=== PATIENT | female | born 1960 | race Caucasian/White ===

== ENCOUNTER 2018-08-11 17:18 | Inpatient (IN) | payer MEDICARE, OTHER ==
[~2018-08-11] VITALS: Ht 160 cm; Wt 98.6 kg
--- NOTE | 2018-08-11 17:44 | PHYS DOC ---
Adult General Chief Complaint Chief Complaint: PSYCH EVALUATION HPI HPI 57-year-old female presents for medical clearance for behavioral health admission. The patient was reported to be "yelling" at staff and scratching herself and she doesn't get her way. She is special needs, nonverbal and non- verbal. She does make audible sounds. She does not indicate any distress or pain when asked. Review of Systems Review of Systems SEVERELY LIMITED DUE TO BEING NON VERBAL Physical Exam Physical Exam Constitutional: Well developed, obese, well nourished, no acute distress, non- toxic appearance. [] HENT: Normocephalic, atraumatic, bilateral external ears normal, oropharynx moist, no oral exudates, nose normal. [] Eyes: PERRLA, EOMI, conjunctiva normal, no discharge. [] Neck: Normal range of motion, no tenderness, supple, no stridor. [] Cardiovascular:Heart rate regular rhythm, no murmur [] Lungs & Thorax: Bilateral breath sounds clear to auscultation [] Abdomen: Bowel sounds normal, soft, no tenderness, no masses, no pulsatile masses. [] Skin: Warm, dry, no erythema, no rash. [] Back: No tenderness. [] Extremities: Bilateral hand contractures[] Neurologic: Unable to speak, no focal deficits noted. [] Psychologic: Affect normal, mood normal. [] EKG EKG Sinus rhythm, rate 94, normal axis, no ST elevations or depressions. PVCs.[] Radiology/Procedures Radiology/Procedures [] Course & Med Decision Making Course & Med Decision Making Pertinent Labs and Imaging studies reviewed. (See chart for details) Patient's EKG is unremarkable. Her labs and urinalysis are pending. I'm signing the patient out to Dr. Rush at 1800. [] Dragon Disclaimer Dragon Disclaimer This electronic medical record was generated, in whole or in part, using a voice recognition dictation system. MARIA DOLORES CONNOR DO Aug 11, 2018 17:44
--- NOTE | 2018-08-11 18:10 | EKG ---
[address] [address] Test Date: 2018-08-11 Test Time: 17:52:23 Pat Name: SLADE FOWLER Department: Room: Gender: F Storage Administrator: OPAL : [id number] Requested By: MARIA DOLORES CONNOR Order Number: [id number] Reading MD: Ray Ramirez Measurements Intervals Wilson Rate: 94 P: 39 ID: [id number] QRS: 3 QRSD: 144 T: 103 QT: 396 QTc: 501 Interpretive Statements SINUS RHYTHM VENTRICULAR PREMATURE COMPLEX(ES) NON SPECIFIC INTRAVENTRICULAR BLOCK QRS(T) CONTOUR ABNORMALITY CONSIDER ANTEROLATERAL MYOCARDIAL DAMAGE ABNORMAL ECG Electronically Signed On 08-24-2018 7:39:11 [employer] SEATING PRESS OPERATOR by Ray Ramirez
[2018-08-11 18:24] LABS: ALBUMIN 2.9 g/dL (3.4-5.0); ALBUMIN/GLOBULIN RATIO 0.7 (1.0-1.7); CALCIUM 9.3 mg/dL (8.5-10.1); CREATININE 0.9 mg/dL (0.6-1.0); GFR 64.1; MAGNESIUM 1.5 mg/dL (1.8-2.4); POTASSIUM 4.2 mmol/L (3.5-5.1); TOTAL BILIRUBIN 0.4 mg/dL (0.2-1.0)
[2018-08-11 18:37] LABS: BASO % 1 % (0-3); EOS # 0.2 x10^3/uL (0.0-0.7); EOS % 3 % (0-3); HEMATOCRIT 39.1 % (36.0-47.0); HEMOGLOBIN 13.3 g/dL (12.0-15.5); LYMPH # 2.4 x10^3/uL (1.0-4.8); LYMPH % 28 % (24-48); MEAN CORPUSCULAR HEMOGLOBIN 32 pg (25-35); MEAN CORPUSCULAR HGB CONC 34 g/dL (31-37); MEAN CORPUSCULAR VOLUME 95 fL (79-100); MONO # 0.4 x10^3/uL (0.0-1.1); MONO % 5 % (0-9); NEUT # 5.3 x10^3uL (1.8-7.7); NEUT % 63 % (31-73); PLATELET COUNT 284 x10^3/uL (140-400); RED CELL DISTRIBUTION WIDTH 18.6 % (11.5-14.5); WHITE BLOOD COUNT 8.4 x10^3/uL (4.0-11.0)
[2018-08-11 19:09] LABS: BACTERIA,URINE 0 /HPF (0-FEW); BILIRUBIN,URINE NEG (NEG); CLARITY,URINE CLEAR; COLOR,URINE STRAW; GLUCOSE,URINE NEG (NEG); NITRITE,URINE NEG (NEG); SQUAMOUS EPITHELIAL CELL,UR MOD /LPF; UROBILINOGEN,URINE 0.2 mg/dL (0.2 mg/dL)
[2018-08-11 19:10] LABS: HYALINE CASTS, URINE FEW /HPF
[2018-08-11] MEDS ORDERED: MAG HYDROX/AL HYDROX/SIMETH 30 ML ORAL.SUSP PO PRN (21:00)
[2018-08-11] MEDS ORDERED: METHYL SALICYLATE/MENTHOL TOPICAL OINTMENT 29GM TUBE. TP PRN (21:00)
[2018-08-11] MEDS ORDERED: MAGNESIUM HYDROXIDE 2,400 MG/30 ML ORAL.SUSP. PO PRN (21:00)
[2018-08-11 21:04] VITALS: BP 98/64
[2018-08-11] MEDS ORDERED: MULT1TAB52 PO (22:10)
[2018-08-11] MEDS ORDERED: TRAZ-86 PO (22:10)
[2018-08-11] MEDS ORDERED: ALLO100T PO (22:10)
[2018-08-11] MEDS ORDERED: LISI10TA2 PO (22:10)
[2018-08-11] MEDS ORDERED: LEVO100T5 PO (22:10)
[2018-08-11] MEDS ORDERED: CHOL10003 PO (22:10)
[2018-08-11] MEDS ORDERED: INSU100V31 SQ (22:10)
[2018-08-11] MEDS ORDERED: FOLI1TAB16 PO (22:10)
[2018-08-11] MEDS ORDERED: METH2.5T PO (22:10)
[2018-08-11] MEDS ORDERED: INSU100V13 SQ (22:10)
[2018-08-11] MEDS ORDERED: FURO-68 PO (22:10)
[2018-08-11] MEDS ORDERED: METF10007 PO (22:11)
[2018-08-11] MEDS ORDERED: DICL100G18 TP (22:11)
[2018-08-11] MEDS ORDERED: HYDR-2155 PO (22:11)
[2018-08-11] MEDS ORDERED: DIVA125C2 PO (22:11)
[2018-08-11] MEDS ORDERED: DULO60CA6 PO (22:11)
[2018-08-11] MEDS ORDERED: NYST15PO9 TP (22:11)
[2018-08-11] MEDS ORDERED: MAGN2400 PO (22:11)
[2018-08-11] MEDS ORDERED: ALPR0.5T PO (22:11)
[2018-08-11] MEDS ORDERED: CARV12.5 PO (22:11)
[2018-08-11] MEDS ORDERED: RISP2TAB33 PO (22:11)
[2018-08-11] MEDS ORDERED: GUAI600T47 PO (22:11)
[2018-08-11] MEDS ORDERED: LOPE2TAB27 PO (22:11)
[2018-08-11] MEDS ORDERED: ASCO500T2 PO (22:11)
[2018-08-11] MEDS ORDERED: NITR0.4T SL (22:11)
[2018-08-11] MEDS ORDERED: CALC200T3 PO (22:11)
[2018-08-11] MEDS ORDERED: NITROGLYCERIN SUBLINGUAL 0.4 MG BOTTLE OF 25. SL PRN (22:15)
[2018-08-11] MEDS ORDERED: CALCIUM CARBONATE 500 MG TAB.CHEW PO PRN (22:15)
[2018-08-11] MEDS ORDERED: NON FORMULARY ITEM (Magnesium Hydroxide (Milk Of Magnesia) 2,400 MG) PO PRN (22:15)
[2018-08-11 22:29] LABS: VAL ACID 37 mcg/mL (50-100)
[2018-08-11] MEDS: traZODone 100 MG TABLET. PO SCH (22:38)
[2018-08-11] MEDS ORDERED: LOPERAMIDE 2 MG CAPSULE PO PRN (22:45)
--- NOTE | 2018-08-11 23:11 | PDOC ---
Exam Note: Johnnie Note: Please also refer to the separate dictated note~for this date of service dictated separately. Discussed the patient with Nursing staff reviewed the chart.~Reviewed interim history and current functioning. Reviewed vital signs,~ Labs/ Radiology~and current medications noted below. Continue current treatment with the changes noted in the dictated addendum note Assessment: Vital Signs: Vital Signs Date Time Temp Pulse Resp B/P (MAP) Pulse Ox O2 Delivery O2 Flow Rate FiO2 08/11/18 21:04 98.1 87 18 98/64 (75) 98 Room Air Labs: Laboratory Tests Test 08/11/18 17:25 08/11/18 17:52 08/11/18 18:05 08/11/18 20:41 Valproic Acid Level 37 mcg/mL (50-100) L Valproic Acid Last Dose Date 08/11/18 Valproic Acid Last Dose Time 1700 Sodium Level 139 mmol/L (136-145) Potassium Level 4.2 mmol/L (3.5-5.1) Chloride Level 101 mmol/L (98-107) Carbon Dioxide Level 28 mmol/L (21-32) Anion Gap 10 (6-14) Blood Urea Nitrogen 9 mg/dL (7-20) Creatinine 0.9 mg/dL (0.6-1.0) Estimated GFR (Cockcroft-Gault) 64.1 BUN/Creatinine Ratio 10 (6-20) Glucose Level 120 mg/dL (70-99) H Calcium Level 9.3 mg/dL (8.5-10.1) Magnesium Level 1.5 mg/dL (1.8-2.4) L Total Bilirubin 0.4 mg/dL (0.2-1.0) Aspartate Amino Transferase (AST) 28 U/L (15-37) Alanine Aminotransferase (ALT) 35 U/L (14-59) Alkaline Phosphatase 90 U/L (46-116) Total Protein 7.0 g/dL (6.4-8.2) Albumin 2.9 g/dL (3.4-5.0) L Albumin/Globulin Ratio 0.7 (1.0-1.7) L White Blood Count 8.4 x10^3/uL (4.0-11.0) Red Blood Count 4.10 x10^6/uL (3.50-5.40) Hemoglobin 13.3 g/dL (12.0-15.5) Hematocrit 39.1 % (36.0-47.0) Mean Corpuscular Volume 95 fL (79-100) Mean Corpuscular Hemoglobin 32 pg (25-35) Mean Corpuscular Hemoglobin Concent 34 g/dL (31-37) Red Cell Distribution Width 18.6 % (11.5-14.5) H Platelet Count 284 x10^3/uL (140-400) Neutrophils (%) (Auto) 63 % (31-73) Lymphocytes (%) (Auto) 28 % (24-48) Monocytes (%) (Auto) 5 % (0-9) Eosinophils (%) (Auto) 3 % (0-3) Basophils (%) (Auto) 1 % (0-3) Neutrophils # (Auto) 5.3 x10^3uL (1.8-7.7) Lymphocytes # (Auto) 2.4 x10^3/uL (1.0-4.8) Monocytes # (Auto) 0.4 x10^3/uL (0.0-1.1) Eosinophils # (Auto) 0.2 x10^3/uL (0.0-0.7) Basophils # (Auto) 0.0 x10^3/uL (0.0-0.2) Urine Collection Type U cath Urine Color Straw Urine Clarity Clear Urine pH 5.5 Urine Specific [place] <=1.005 Urine Protein Neg (NEG-TRACE) Urine Glucose (UA) Neg mg/dL (NEG) Urine Ketones (Stick) Neg mg/dL (NEG) Urine Blood Trace (NEG) Urine Nitrite Neg (NEG) Urine Bilirubin Neg (NEG) Urine Urobilinogen Dipstick 0.2 mg/dL (0.2 mg/dL) Urine Leukocyte Esterase Neg (NEG) Urine RBC 11-20 /HPF (0-2) Urine WBC 1-4 /HPF (0-4) Urine Squamous Epithelial Cells Mod /LPF Urine Bacteria 0 /HPF (0-FEW) Urine Hyaline Casts Few /HPF Urine Mucus Slight /LPF Glucose (Fingerstick) 143 mg/dL (70-99) H Current Medications: Meds: Current Medications Acetaminophen (Tylenol) 650 mg PRN Q6HRS PRN PO PAIN / TEMP; Start 08/11/18 at 21:00 Multi-Ingredient Ointment (Analgesic [place]) 1 yaima PRN QID PRN TP MUSCLE PAIN; Start 08/11/18 at 21:00 Al Hydroxide/Mg Hydroxide (Mylanta Plus Xs) 15 ml PRN AFTMEALHC PRN PO DYSPEPSIA; Start 08/11/18 at 21:00 Magnesium Hydroxide (Milk Of Magnesia) 2,400 mg PRN QHS PRN PO CONSTIPATION; Start 08/11/18 at 21:00 Alprazolam (Xanax) 0.5 mg PRN Q6HRS PRN PO ANXIETY / AGITATION; Start at 22:30 Divalproex Sodium (Depakote Sprinkles) 250 mg BIDWMEALS PO ; Start 08/12/18 at 08:00 Duloxetine HCl (Cymbalta) 60 mg BIDWMEALS PO ; Start 08/12/18 at 08:00 Risperidone (RisperDAL) 2 mg BIDWMEALS PO ; Start 08/12/18 at 08:00 Trazodone HCl (Desyrel) 100 mg HS PO Last administered on 08/11/18at 22:38; Start 08/11/18 at 22:30 Ascorbic Acid (Vitamin C) 500 mg BIDWMEALS PO ; Start 08/12/18 at 08:00 Calcium Carbonate/ Glycine (Tums) 500 mg PRN Q6HRS PRN PO INDIGESTION; Start 08/11/18 at 22:15 Vitamin D (Vitamin D3) 2,000 unit DAILY PO ; Start 08/12/18 at 09:00 Diclofenac Sodium (Voltaren) 1 yaima QID TP ; Start 08/12/18 at 09:00 Guaifenesin (Mucinex Er) 600 mg BIDWMEALS PO ; Start 08/12/18 at 08:00 Acetaminophen/ Hydrocodone Bitart (Lortab 5/325) 1 tab PRN Q6HRS PRN PO PAIN; Start 08/11/18 at 22:15 Levothyroxine Sodium (Synthroid) 100 mcg DAILY06 PO ; Start 08/12/18 at 06:00 Lisinopril (Prinivil) 10 mg DAILY PO ; Start 08/12/18 at 09:00 Nitroglycerin (Nitrostat) 0.4 mg PRN Q5MIN PRN SL CHEST PAIN; Start 08/11/18 at 22:15 Nystatin (Nystop) 1 yaima BID TP ; Start 08/12/18 at 09:00 Allopurinol (Zyloprim) 100 mg DAILY PO ; Start 08/12/18 at 09:00 Carvedilol (Coreg) 12.5 mg BIDWMEALS PO ; Start 08/12/18 at 08:00 Folic Acid (Folic Acid) 1 mg DAILY PO ; Start 08/12/18 at 09:00 Furosemide (Lasix) 40 mg DAILY PO ; Start 08/12/18 at 09:00 Insulin Human Lispro (HumaLOG) 5 units TIDWMEALS SQ ; Start 08/12/18 at 08:00 Insulin Glargine (Lantus) 10 units QHS SQ ; Start 08/11/18 at 23:00 Loperamide HCl (Imodium) 2 mg PRN Q6HRS PRN PO DIARRHEA; Start 08/11/18 at 22: 45 Non-Formulary Medication (Magnesium Hydroxide (Milk Of Magnesia)) 2,400 mg PRN DAILY PRN PO CONSTIPATION; Start 08/11/18 at 22:15; Status UNV Metformin HCl (Glucophage) 1,000 mg BIDWMEALS PO ; Start 08/12/18 at 08:00 Methotrexate (Rheumatrex) 15 mg WEEKLY PO ; Start 08/18/18 at 09:00 Multivitamins/ Calcium (Thera-M Plus) 1 tab DAILY PO ; Start 08/12/18 at 09:00 Active Scripts Active Reported Xanax (Alprazolam) 0.5 Mg Tablet 0.5 Mg PO PRN Q6HRS PRN Hydrocodone-Apap 5-325 (Hydrocodone Bit/Acetaminophen) 1 Each Tablet 1 Tab PO PRN Q6HRS PRN Voltaren (Diclofenac Sodium) 100 Gm Gel..gram. 4 Gm TP QID Nystatin 15 Gm Powder 1 Yaima TP BID Tums (Calcium Carbonate) 200 Mg Tab.chew 2 Tab PO PRN Q6HRS PRN Nitrostat (Nitroglycerin) 0.4 Mg Tab.subl 0.4 Mg SL PRN Q5MIN PRN Milk Of Magnesia (Magnesium Hydroxide) 2,400 Mg/10 Ml Oral.susp 2,400 Mg PO PRN DAILY PRN Loperamide (Loperamide Hcl) 2 Mg Tablet 2 Mg PO PRN Q6HRS PRN Vitamin C (Ascorbic Acid) 500 Mg Tablet 500 Mg PO BIDWMEALS Risperdal (Risperidone) 2 Mg Tablet 2 Mg PO BIDWMEALS Mucinex (Guaifenesin) 600 Mg Tablet.er 600 Mg PO BIDWMEALS Metformin Hcl 1,000 Mg Tablet 1,000 Mg PO BIDWMEALS Cymbalta (Duloxetine Hcl) 60 Mg Capsule.dr 60 Mg PO BIDWMEALS Depakote Sprinkle (Divalproex Sodium) 125 Mg Cap.sprink 250 Mg PO BIDWMEALS Coreg (Carvedilol) 12.5 Mg Tablet 12.5 Mg PO BIDWMEALS Vitamin D3 (Cholecalciferol (Vitamin D3)) 1,000 Unit Tablet 2,000 Unit PO DAILY Trazodone Hcl 100 Mg Tablet 100 Mg PO HS Multivitamins (Multivitamin) 1 Each Tablet 1 Tab PO DAILY Methotrexate (Methotrexate Sodium) 2.5 Mg Tablet 15 Mg PO WEEKLY Lisinopril 10 Mg Tablet 10 Mg PO DAILY Levothyroxine Sodium 100 Mcg Tablet 100 Mcg PO DAILYAC Lasix (Furosemide) 40 Mg Tablet 40 Mg PO DAILY Folic Acid 1 Mg Tablet 1 Mg PO DAILY Allopurinol 100 Mg Tablet 100 Mg PO DAILY Novolog (Insulin Aspart) 100 Unit/1 Ml Vial 5 Unit SQ TIDWMEALS Levemir (Insulin Detemir) 100 Unit/1 Ml Vial 10 Unit SQ HS I have reviewed the current psychotropics carefully including drug interactions. Risk benefit ratio favors no change other than as noted in my dictated progress note. KAITLIN DREW MD Aug 11, 2018 23:11
[2018-08-11] MEDS: INSULIN GLARGINE 300 UNITS/3 ML INSULN.PEN. SQ SCH (23:30)
[2018-08-12] MEDS: LEVOTHYROXINE 100 MCG TABLET PO SCH (05:54)
[2018-08-12 06:37] VITALS: BP 94/65
[2018-08-12] MEDS: CARVEDILOL 12.5 MG TABLET PO SCH ×2 (08:00→18:02)
[2018-08-12] MEDS: INSULIN LISPRO 300 UNITS/3 ML INSULN.PEN. SQ SCH ×3 (08:14→17:00)
[2018-08-12] MEDS ORDERED: DEXTROSE ORAL GEL 15 GM TUBE. PO PRN (08:15)
[2018-08-12] MEDS: NYSTATIN TOPICAL POWDER 15GM BOTTLE. TP SCH ×2 (08:17→20:20)
[2018-08-12] MEDS: FUROSEMIDE 40 MG TABLET PO SCH (08:17)
[2018-08-12] MEDS: DULoxetine HCL 60 MG CAPSULE.DR PO SCH ×2 (08:17→18:03)
[2018-08-12] MEDS: MULTIVITAMIN with MINERAL TABLET. PO SCH (08:18)
[2018-08-12] MEDS: risperiDONE 2 MG TABLET. PO SCH ×2 (08:18→18:02)
[2018-08-12] MEDS: ALLOPURINOL 100 MG TABLET. PO SCH (08:18)
[2018-08-12] MEDS: metFORMIN 500 MG TABLET PO SCH ×2 (08:18→17:00)
[2018-08-12] MEDS: FOLIC ACID 1 MG TABLET PO SCH (08:18)
[2018-08-12] MEDS: DIVALPROEX 125 MG CAP.SPRINK PO SCH ×2 (08:18→18:03)
[2018-08-12] MEDS: ASCORBIC ACID 500 MG TABLET PO SCH ×2 (08:18→18:03)
[2018-08-12] MEDS: CHOLECALCIFEROL (VITAMIN D3) 1,000 UNIT TABLET PO SCH (08:19)
[2018-08-12] MEDS: LISINOPRIL 10 MG TABLET PO SCH (08:19)
[2018-08-12] MEDS: DICLOFENAC SODIUM 1% TOPICAL GEL 100GM TUBE. TP SCH ×4 (08:20→20:20)
[2018-08-12 13:15] LABS: THYROID STIM HORMONE (TSH) 2.748 uIU/mL (0.358-3.740)
[2018-08-12 15:27] VITALS: BP_SYST 109; BP_SYST 117; BP_DIAS 72; BP_DIAS 78
[2018-08-12 18:10] LABS: THYROXINE 11.6 ug/dL (4.5-12.0)
[2018-08-12 20:10] LABS: HEMOGLOBIN A1C 5.4 % (4.8-5.6)
[2018-08-12] MEDS: traZODone 100 MG TABLET. PO SCH (20:20)
[2018-08-12] MEDS: INSULIN GLARGINE 300 UNITS/3 ML INSULN.PEN. SQ SCH (20:21)
--- NOTE | 2018-08-12 22:50 | PDOC ---
Exam Note: Johnnie Note: Please also refer to the separate dictated note~for this date of service dictated separately.~Patient seen individually. Discussed the patient with Nursing staff reviewed the chart.~Reviewed interim history and current functioning. Reviewed vital signs,~Labs/ Radiology~and current medications noted below. Continue current treatment with the changes noted in the dictated addendum note Assessment: Vital Signs: Vital Signs Date Time Temp Pulse Resp B/P (MAP) Pulse Ox O2 Delivery O2 Flow Rate FiO2 08/12/18 18:02 68 109/72 08/12/18 15:27 97.6 20 95 08/12/18 06:37 Room Air I&O Intake and Output 08/12/18 07:01 Intake Total 120 ml Balance 120 ml Intake Oral 120 ml Labs: Laboratory Tests Test 08/12/18 07:12 08/12/18 11:50 08/12/18 16:48 08/12/18 19:54 Glucose (Fingerstick) 123 mg/dL (70-99) H 134 mg/dL (70-99) H 139 mg/dL (70-99) H 131 mg/dL (70-99) H Current Medications: Meds: Current Medications Acetaminophen (Tylenol) 650 mg PRN Q6HRS PRN PO PAIN / TEMP; Start 08/11/18 at 21:00 Multi-Ingredient Ointment (Analgesic [place]) 1 yaima PRN QID PRN TP MUSCLE PAIN; Start 08/11/18 at 21:00 Al Hydroxide/Mg Hydroxide (Mylanta Plus Xs) 15 ml PRN AFTMEALHC PRN PO DYSPEPSIA; Start 08/11/18 at 21:00 Magnesium Hydroxide (Milk Of Magnesia) 2,400 mg PRN QHS PRN PO CONSTIPATION; Start 08/11/18 at 21:00 Alprazolam (Xanax) 0.5 mg PRN Q6HRS PRN PO ANXIETY / AGITATION; Start at 22:30 Divalproex Sodium (Depakote Sprinkles) 250 mg BIDWMEALS PO Last administered on 08/12/18at 18:03; Start 08/12/18 at 08:00 Duloxetine HCl (Cymbalta) 60 mg BIDWMEALS PO Last administered on 08/12/18at 18 :03; Start 08/12/18 at 08:00 Risperidone (RisperDAL) 2 mg BIDWMEALS PO Last administered on 08/12/18at 18:02 ; Start 08/12/18 at 08:00 Trazodone HCl (Desyrel) 100 mg HS PO Last administered on 08/12/18at 20:20; Start 08/11/18 at 22:30 Ascorbic Acid (Vitamin C) 500 mg BIDWMEALS PO Last administered on 08/12/18at 18:03; Start 08/12/18 at 08:00 Calcium Carbonate/ Glycine (Tums) 500 mg PRN Q6HRS PRN PO INDIGESTION; Start 08/11/18 at 22:15 Vitamin D (Vitamin D3) 2,000 unit DAILY PO Last administered on 08/12/18at 08: 19; Start 08/12/18 at 09:00 Diclofenac Sodium (Voltaren) 1 yaima QID TP Last administered on 08/12/18at 20:20 ; Start 08/12/18 at 09:00 Guaifenesin (Mucinex Er) 600 mg BIDWMEALS PO Last administered on 08/12/18at 18 :03; Start 08/12/18 at 08:00 Acetaminophen/ Hydrocodone Bitart (Lortab 5/325) 1 tab PRN Q6HRS PRN PO PAIN; Start 08/11/18 at 22:15 Levothyroxine Sodium (Synthroid) 100 mcg DAILY06 PO Last administered on at 05:54; Start 08/12/18 at 06:00 Lisinopril (Prinivil) 10 mg DAILY PO ; Start 08/12/18 at 09:00 Nitroglycerin (Nitrostat) 0.4 mg PRN Q5MIN PRN SL CHEST PAIN; Start 08/11/18 at 22:15 Nystatin (Nystop) 1 yaima BID TP Last administered on 08/12/18at 20:20; Start at 09:00 Allopurinol (Zyloprim) 100 mg DAILY PO Last administered on 08/12/18at 08:18; Start 08/12/18 at 09:00 Carvedilol (Coreg) 12.5 mg BIDWMEALS PO Last administered on 08/12/18at 18:02; Start 08/12/18 at 08:00 Folic Acid (Folic Acid) 1 mg DAILY PO Last administered on 08/12/18at 08:18; Start 08/12/18 at 09:00 Furosemide (Lasix) 40 mg DAILY PO Last administered on 08/12/18at 08:17; Start 08/12/18 at 09:00 Insulin Human Lispro (HumaLOG) 5 units TIDWMEALS SQ Last administered on at 17:00; Start 08/12/18 at 08:00 Insulin Glargine (Lantus) 10 units QHS SQ Last administered on 08/12/18at 20:21 ; Start 08/11/18 at 23:00 Loperamide HCl (Imodium) 2 mg PRN Q6HRS PRN PO DIARRHEA; Start 08/11/18 at 22: 45 Non-Formulary Medication (Magnesium Hydroxide (Milk Of Magnesia)) 2,400 mg PRN DAILY PRN PO CONSTIPATION; Start 08/11/18 at 22:15; Status UNV Metformin HCl (Glucophage) 1,000 mg BIDWMEALS PO Last administered on at 17:00; Start 08/12/18 at 08:00 Methotrexate (Rheumatrex) 15 mg WEEKLY PO ; Start 08/18/18 at 09:00 Multivitamins/ Calcium (Thera-M Plus) 1 tab DAILY PO Last administered on 08/12at 08:18; Start 08/12/18 at 09:00 Glucose (Insta-Glucose) 15 gm PRN Q15MIN PRN PO LOW BLOOD SUGAR; Start at 08:15 Active Scripts Active Reported Xanax (Alprazolam) 0.5 Mg Tablet 0.5 Mg PO PRN Q6HRS PRN Hydrocodone-Apap 5-325 (Hydrocodone Bit/Acetaminophen) 1 Each Tablet 1 Tab PO PRN Q6HRS PRN Voltaren (Diclofenac Sodium) 100 Gm Gel..gram. 4 Gm TP QID Nystatin 15 Gm Powder 1 Yaima TP BID Tums (Calcium Carbonate) 200 Mg Tab.chew 2 Tab PO PRN Q6HRS PRN Nitrostat (Nitroglycerin) 0.4 Mg Tab.subl 0.4 Mg SL PRN Q5MIN PRN Milk Of Magnesia (Magnesium Hydroxide) 2,400 Mg/10 Ml Oral.susp 2,400 Mg PO PRN DAILY PRN Loperamide (Loperamide Hcl) 2 Mg Tablet 2 Mg PO PRN Q6HRS PRN Vitamin C (Ascorbic Acid) 500 Mg Tablet 500 Mg PO BIDWMEALS Risperdal (Risperidone) 2 Mg Tablet 2 Mg PO BIDWMEALS Mucinex (Guaifenesin) 600 Mg Tablet.er 600 Mg PO BIDWMEALS Metformin Hcl 1,000 Mg Tablet 1,000 Mg PO BIDWMEALS Cymbalta (Duloxetine Hcl) 60 Mg Capsule.dr 60 Mg PO BIDWMEALS Depakote Sprinkle (Divalproex Sodium) 125 Mg Cap.sprink 250 Mg PO BIDWMEALS Coreg (Carvedilol) 12.5 Mg Tablet 12.5 Mg PO BIDWMEALS Vitamin D3 (Cholecalciferol (Vitamin D3)) 1,000 Unit Tablet 2,000 Unit PO DAILY Trazodone Hcl 100 Mg Tablet 100 Mg PO HS Multivitamins (Multivitamin) 1 Each Tablet 1 Tab PO DAILY Methotrexate (Methotrexate Sodium) 2.5 Mg Tablet 15 Mg PO WEEKLY Lisinopril 10 Mg Tablet 10 Mg PO DAILY Levothyroxine Sodium 100 Mcg Tablet 100 Mcg PO DAILYAC Lasix (Furosemide) 40 Mg Tablet 40 Mg PO DAILY Folic Acid 1 Mg Tablet 1 Mg PO DAILY Allopurinol 100 Mg Tablet 100 Mg PO DAILY Novolog (Insulin Aspart) 100 Unit/1 Ml Vial 5 Unit SQ TIDWMEALS Levemir (Insulin Detemir) 100 Unit/1 Ml Vial 10 Unit SQ HS I have reviewed the current psychotropics carefully including drug interactions. Risk benefit ratio favors no change other than as noted in my dictated progress note. Diagnosis: Problems: (1) Anxiety disorder (2) Major depressive disorder, recurrent episode (3) Impulse control disorder (4) Dementia in Alzheimer's disease with delusions (5) Dementia in Alzheimer's disease with depression (6) Dementia, vascular, with delusions (7) Dementia, vascular, with depression KAITLIN DREW MD Aug 12, 2018 22:50
[2018-08-13] MEDS: LEVOTHYROXINE 100 MCG TABLET PO SCH (05:32)
[2018-08-13 06:38] VITALS: BP 127/88
[2018-08-13] MEDS: MULTIVITAMIN with MINERAL TABLET. PO SCH (07:35)
[2018-08-13] MEDS: FOLIC ACID 1 MG TABLET PO SCH (07:35)
[2018-08-13] MEDS: ALLOPURINOL 100 MG TABLET. PO SCH (07:35)
[2018-08-13] MEDS: FUROSEMIDE 40 MG TABLET PO SCH (07:35)
[2018-08-13] MEDS: DULoxetine HCL 60 MG CAPSULE.DR PO SCH ×2 (07:35→18:08)
[2018-08-13] MEDS: risperiDONE 2 MG TABLET. PO SCH ×2 (07:35→18:09)
[2018-08-13] MEDS: metFORMIN 500 MG TABLET PO SCH ×2 (07:35→18:08)
[2018-08-13] MEDS: CHOLECALCIFEROL (VITAMIN D3) 1,000 UNIT TABLET PO SCH (07:36)
[2018-08-13] MEDS: CARVEDILOL 12.5 MG TABLET PO SCH ×2 (07:36→18:09)
[2018-08-13] MEDS: DIVALPROEX 125 MG CAP.SPRINK PO SCH ×2 (07:36→18:08)
[2018-08-13] MEDS: ASCORBIC ACID 500 MG TABLET PO SCH ×2 (07:37→18:09)
[2018-08-13] MEDS: NYSTATIN TOPICAL POWDER 15GM BOTTLE. TP SCH ×2 (07:37→20:35)
[2018-08-13] MEDS: LISINOPRIL 10 MG TABLET PO SCH (07:37)
[2018-08-13] MEDS: DICLOFENAC SODIUM 1% TOPICAL GEL 100GM TUBE. TP SCH ×4 (07:38→20:37)
[2018-08-13] MEDS: INSULIN LISPRO 300 UNITS/3 ML INSULN.PEN. SQ SCH ×3 (07:46→18:45)
--- NOTE | 2018-08-13 13:10 | CONS ---
DATE OF CONSULTATION: 08/12/2018 REASON FOR CONSULTATION: Medical management. HISTORY OF PRESENT ILLNESS: The patient is a 57-year-old female patient, a resident at [facility], who was admitted on account of being noncompliant with medication, I think it was insulin, yelling at staff, throwing things, scratching her face when she does not get her way, gorging herself or not eating at all, all this in a background of bipolar disorder, mixed with acute exacerbation. She is deaf and difficult to communicate with. PAST MEDICAL HISTORY: She has multiple medical problems including severe sensorineural deafness, rheumatoid arthritis, type 2 diabetes mellitus, gout, hypothyroidism, hyperlipidemia, chronic yeast infections in the abdominal folds and under breasts, hypertension, congestive heart failure. PAST SURGICAL HISTORY: Significant for amputation of her second toe on the right foot. ALLERGIES: SHE IS ALLERGIC TO AMOXICILLIN, CITALOPRAM, CLAVULANIC ACID AND GABAPENTIN. MEDICATIONS: She is currently on following medications: She is on methotrexate sodium 50 mg weekly, nitroglycerin 0.4 mg sublingually every 5 minutes x 3, carvedilol 12.5 mg twice a day with meals, lisinopril 10 mg once a day, diclofenac sodium for Voltaren gel 4 grams 4 times a day, hydrocodone/APAP 5/325 one tablet every 6 hours. She is on Divalproex for Depakote Sprinkles 250 mg twice a day with meals. She is on duloxetine for Cymbalta 60 mg twice a day, trazodone 100 mg at bedtime, risperidone 2 mg twice a day with meals, alprazolam 0.5 mg every 6 hours as needed, furosemide 40 mg daily, Mucinex 600 mg twice a day, calcium carbonate for Tums 2 tablets every 6 hours, loperamide 2 mg every 6 hours, milk of magnesia 30 mL p.o. daily p.r.n. for constipation, metformin 1000 mg twice a day with meals. She is on NovoLog insulin 5 units 3 times a day with meals, Levemir insulin 10 units subcutaneously at bedtime, levothyroxine sodium 100 mcg once a day, nystatin powder apply topically twice a day to skin of abdominal folds and under the breasts. She is on folic acid 1 mg once a day, ascorbic acid 500 mg twice a day with meals, vitamin D 2000 international units once a day. She is on allopurinol 100 mg once a day. FAMILY HISTORY: Unobtainable. SOCIAL HISTORY: She is a resident at [facility] and no further information available. PHYSICAL EXAMINATION: GENERAL: When I examined her, she was resting flat, comfortably, in no apparent distress. She was pale, but no jaundice, cyanosis, or thyromegaly. No jugular venous distension. No lower limb edema. Her heart rate was 68, blood pressure was 109/72. Her temperature was 97.6, respiratory rate 20 and oxygen saturation was 95% on room air. HEAD, EYES, EARS, NOSE AND THROAT: Showed normocephalic, atraumatic. NECK: Supple. HEART: Showed normal first and second heart sounds. No gallop, rub or murmur. CHEST: Clear to auscultation. No crepitation or rhonchi. ABDOMEN: Markedly distended, soft, nontender. NEUROLOGIC: She is extremely hard of hearing. All her other cranial nerves seem to be intact. She has severe deforming rheumatoid arthritis, but she is able to move all her extremities. She is apparently able to walk with a walker. She has pill-rolling tremors consistent with Parkinson's disease. She has also what seems to be tardive dyskinesia with repetitive movement of her lower jaw. 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 She has also wounds on the plantar aspect of the left foot for which she was seen by the wound care team and they changed her dressing this afternoon. LABORATORY DATA: Her lab work this morning showed a white cell count of 8400, hemoglobin 13, hematocrit 39, MCV 95 and platelet count 284,000. Her chemistry showed a serum sodium 139, potassium 4.2, chloride 101, bicarbonate 28, anion gap of 10, BUN 9, creatinine 0.9. Estimated GFR was 64 mL per minute. His glucose 120, calcium was 9.3, magnesium was 1.5. Serum iron was 47, TIBC was 249 and iron saturation was 19%. Her total bilirubin, AST, ALT, alkaline phosphatase were normal. Total protein 7, albumin 2.9. Her TSH and total T4 and total T3 are normal. Her 25-hydroxy vitamin D was 48. Her serum triglycerides 175, cholesterol 173, LDL was 85, VLDL was 35, HDL cholesterol was 53 and the ratio was 3. Her vitamin B12 was 352 pg/mL, which is well within normal range. IMPRESSION: In summary, this is a 57-year-old female patient, who was admitted on account of being compliant with her medications that include insulin, yelling at staff, throwing things, scratching her face when she does not get her way, gorging herself or not eating at all, all this in a background of bipolar disorder, mixed with acute exacerbation. Medically, she has a multitude of medical problems including severe deforming rheumatoid arthritis, severe sensorineural deafness, type 2 diabetes, hypertension, hyperlipidemia, hypothyroidism, congestive heart failure. She has also tremors consistent with Parkinson's disease; however, medically she seemed to be generally stable. Her vital signs are stable. Her lab works are all within acceptable range except mild hypomagnesemia. In fact, her white cell count, hemoglobin, hematocrit and platelet count are all within surprisingly normal range despite severe deforming rheumatoid arthritis. Urinalysis was essentially unremarkable and the urine was negative for nitrite and leukocyte esterase. There were 11-20 rbc's, 1-4 wbc's, and 0 bacteria. The patient seemed to be, all in all, stable medically. We will obviously monitor her blood sugar and adjust her insulin as needed. Thank you, Dr. Schneider for allowing me to participate in the care of this patient. VINAY DE LEON MD DR: SARMAD/satya JOB#: [id number] / [id number]
[2018-08-13 16:21] VITALS: BP 111/53
[2018-08-13] MEDS ORDERED: DIVALPROEX 125 MG CAP.SPRINK PO SCH (20:27)
[2018-08-13] MEDS: traZODone 100 MG TABLET. PO SCH (20:34)
[2018-08-13] MEDS: INSULIN GLARGINE 300 UNITS/3 ML INSULN.PEN. SQ SCH (20:36)
--- NOTE | 2018-08-13 22:11 | PDOC ---
Exam Note: Johnnie Note: Please also refer to the separate dictated note~for this date of service dictated separately.~Patient seen individually. Discussed the patient with Nursing staff reviewed the chart.~Reviewed interim history and current functioning. Reviewed vital signs,~Labs/ Radiology~and current medications noted below. Continue current treatment with the changes noted in the dictated addendum note Assessment: Vital Signs: Vital Signs Date Time Temp Pulse Resp B/P (MAP) Pulse Ox O2 Delivery O2 Flow Rate FiO2 08/13/18 18:09 90 111/53 08/13/18 16:21 97.9 98 08/13/18 06:38 22 08/12/18 06:37 Room Air I&O Intake and Output 08/13/18 07:01 Intake Total 1320 ml Balance 1320 ml Intake Oral 1320 ml Labs: Laboratory Tests Test 08/13/18 07:31 08/13/18 11:55 08/13/18 16:52 08/13/18 19:43 Glucose (Fingerstick) 127 mg/dL (70-99) H 124 mg/dL (70-99) H 106 mg/dL (70-99) H 122 mg/dL (70-99) H Current Medications: Meds: Current Medications Acetaminophen (Tylenol) 650 mg PRN Q6HRS PRN PO PAIN / TEMP; Start 08/11/18 at 21:00 Multi-Ingredient Ointment (Analgesic [place]) 1 yaima PRN QID PRN TP MUSCLE PAIN; Start 08/11/18 at 21:00 Al Hydroxide/Mg Hydroxide (Mylanta Plus Xs) 15 ml PRN AFTMEALHC PRN PO DYSPEPSIA; Start 08/11/18 at 21:00 Magnesium Hydroxide (Milk Of Magnesia) 2,400 mg PRN QHS PRN PO CONSTIPATION; Start 08/11/18 at 21:00 Alprazolam (Xanax) 0.5 mg PRN Q6HRS PRN PO ANXIETY / AGITATION; Start at 22:30 Divalproex Sodium (Depakote Sprinkles) 250 mg BIDWMEALS PO Last administered on 08/13/18at 18:08; Start 08/12/18 at 08:00; Stop 08/13/18 at 20:26; Status DC Duloxetine HCl (Cymbalta) 60 mg BIDWMEALS PO Last administered on 08/13/18at 18 :08; Start 08/12/18 at 08:00; Stop 08/13/18 at 20:26; Status DC Risperidone (RisperDAL) 2 mg BIDWMEALS PO Last administered on 08/13/18at 18:09 ; Start 08/12/18 at 08:00 Trazodone HCl (Desyrel) 100 mg HS PO Last administered on 08/13/18at 20:34; Start 08/11/18 at 22:30 Ascorbic Acid (Vitamin C) 500 mg BIDWMEALS PO Last administered on 08/13/18at 18:09; Start 08/12/18 at 08:00 Calcium Carbonate/ Glycine (Tums) 500 mg PRN Q6HRS PRN PO INDIGESTION; Start 08/11/18 at 22:15 Vitamin D (Vitamin D3) 2,000 unit DAILY PO Last administered on 08/13/18at 07: 36; Start 08/12/18 at 09:00 Diclofenac Sodium (Voltaren) 1 yaima QID TP Last administered on 08/13/18at 20:37 ; Start 08/12/18 at 09:00 Guaifenesin (Mucinex Er) 600 mg BIDWMEALS PO Last administered on 08/13/18at 18 :09; Start 08/12/18 at 08:00 Acetaminophen/ Hydrocodone Bitart (Lortab 5/325) 1 tab PRN Q6HRS PRN PO PAIN; Start 08/11/18 at 22:15 Levothyroxine Sodium (Synthroid) 100 mcg DAILY06 PO Last administered on at 05:32; Start 08/12/18 at 06:00 Lisinopril (Prinivil) 10 mg DAILY PO Last administered on 08/13/18at 07:37; Start 08/12/18 at 09:00 Nitroglycerin (Nitrostat) 0.4 mg PRN Q5MIN PRN SL CHEST PAIN; Start 08/11/18 at 22:15 Nystatin (Nystop) 1 yaima BID TP Last administered on 08/13/18at 20:35; Start at 09:00 Allopurinol (Zyloprim) 100 mg DAILY PO Last administered on 08/13/18at 07:35; Start 08/12/18 at 09:00 Carvedilol (Coreg) 12.5 mg BIDWMEALS PO Last administered on 08/13/18at 18:09; Start 08/12/18 at 08:00 Folic Acid (Folic Acid) 1 mg DAILY PO Last administered on 08/13/18at 07:35; Start 08/12/18 at 09:00 Furosemide (Lasix) 40 mg DAILY PO Last administered on 08/13/18at 07:35; Start 08/12/18 at 09:00 Insulin Human Lispro (HumaLOG) 5 units TIDWMEALS SQ Last administered on at 18:45; Start 08/12/18 at 08:00 Insulin Glargine (Lantus) 10 units QHS SQ Last administered on 08/13/18at 20:36 ; Start 08/11/18 at 23:00 Loperamide HCl (Imodium) 2 mg PRN Q6HRS PRN PO DIARRHEA; Start 08/11/18 at 22: 45 Non-Formulary Medication (Magnesium Hydroxide (Milk Of Magnesia)) 2,400 mg PRN DAILY PRN PO CONSTIPATION; Start 08/11/18 at 22:15; Status UNV Metformin HCl (Glucophage) 1,000 mg BIDWMEALS PO Last administered on at 18:08; Start 08/12/18 at 08:00 Methotrexate (Rheumatrex) 15 mg WEEKLY PO ; Start 08/18/18 at 09:00 Multivitamins/ Calcium (Thera-M Plus) 1 tab DAILY PO Last administered on 08/13at 07:35; Start 08/12/18 at 09:00 Glucose (Insta-Glucose) 15 gm PRN Q15MIN PRN PO LOW BLOOD SUGAR; Start at 08:15 Divalproex Sodium (Depakote Sprinkles) 500 mg BIDWMEALS PO ; Start 08/13/18 at 20:27; Stop 08/13/18 at 20:36; Status DC Duloxetine HCl (Cymbalta) 60 mg DAILY PO ; Start 08/14/18 at 09:00 Divalproex Sodium (Depakote Sprinkles) 500 mg BIDWMEALS PO ; Start 08/14/18 at 08:00 Active Scripts Active Reported Xanax (Alprazolam) 0.5 Mg Tablet 0.5 Mg PO PRN Q6HRS PRN Hydrocodone-Apap 5-325 (Hydrocodone Bit/Acetaminophen) 1 Each Tablet 1 Tab PO PRN Q6HRS PRN Voltaren (Diclofenac Sodium) 100 Gm Gel..gram. 4 Gm TP QID Nystatin 15 Gm Powder 1 Yaima TP BID Tums (Calcium Carbonate) 200 Mg Tab.chew 2 Tab PO PRN Q6HRS PRN Nitrostat (Nitroglycerin) 0.4 Mg Tab.subl 0.4 Mg SL PRN Q5MIN PRN Milk Of Magnesia (Magnesium Hydroxide) 2,400 Mg/10 Ml Oral.susp 2,400 Mg PO PRN DAILY PRN Loperamide (Loperamide Hcl) 2 Mg Tablet 2 Mg PO PRN Q6HRS PRN Vitamin C (Ascorbic Acid) 500 Mg Tablet 500 Mg PO BIDWMEALS Risperdal (Risperidone) 2 Mg Tablet 2 Mg PO BIDWMEALS Mucinex (Guaifenesin) 600 Mg Tablet.er 600 Mg PO BIDWMEALS Metformin Hcl 1,000 Mg Tablet 1,000 Mg PO BIDWMEALS Cymbalta (Duloxetine Hcl) 60 Mg Capsule.dr 60 Mg PO BIDWMEALS Depakote Sprinkle (Divalproex Sodium) 125 Mg Cap.sprink 250 Mg PO BIDWMEALS Coreg (Carvedilol) 12.5 Mg Tablet 12.5 Mg PO BIDWMEALS Vitamin D3 (Cholecalciferol (Vitamin D3)) 1,000 Unit Tablet 2,000 Unit PO DAILY Trazodone Hcl 100 Mg Tablet 100 Mg PO HS Multivitamins (Multivitamin) 1 Each Tablet 1 Tab PO DAILY Methotrexate (Methotrexate Sodium) 2.5 Mg Tablet 15 Mg PO WEEKLY Lisinopril 10 Mg Tablet 10 Mg PO DAILY Levothyroxine Sodium 100 Mcg Tablet 100 Mcg PO DAILYAC Lasix (Furosemide) 40 Mg Tablet 40 Mg PO DAILY Folic Acid 1 Mg Tablet 1 Mg PO DAILY Allopurinol 100 Mg Tablet 100 Mg PO DAILY Novolog (Insulin Aspart) 100 Unit/1 Ml Vial 5 Unit SQ TIDWMEALS Levemir (Insulin Detemir) 100 Unit/1 Ml Vial 10 Unit SQ HS I have reviewed the current psychotropics carefully including drug interactions. Risk benefit ratio favors no change other than as noted in my dictated progress note. Diagnosis: Problems: (1) Anxiety disorder (2) Major depressive disorder, recurrent episode (3) Impulse control disorder (4) Dementia in Alzheimer's disease with delusions (5) Dementia in Alzheimer's disease with depression (6) Dementia, vascular, with delusions (7) Dementia, vascular, with depression KAITLIN DREW MD Aug 13, 2018 22:11
--- NOTE | 2018-08-14 00:44 | PN ---
DATE: 08/13/2018 This note covers elements not covered in my initial note. SUBJECTIVE: I met with the patient in the evening of 08/13/2018. The patient slept 3-1/4 hours previous night. Per nursing report, the patient has been cooperative with medications, somewhat withdrawn, oriented to herself and situation. REVIEW OF SYSTEMS: Ambulation impaired with walker. No CV, , pulmonary, eye, ENT system symptoms on review. She has difficulty expressing herself due to problems with her expressive language skills. Additionally, she is extremely deaf. MENTAL STATUS EXAM: Oriented to herself and situation. Speech as noted, abstraction fair, computation impaired, language function intact, attention span short. Mood and affect withdrawn, anxious, paranoid, labile. No active suicidal or homicidal ideation. LABORATORY DATA: Reviewed. IMPRESSION: Bipolar 1 disorder, mixed with psychotic features; anxiety disorder, unspecified; impulse control disorder, unspecified. Rest unchanged including being deaf difficulty with expressive language skills. PLAN: Given a history of bipolar disorder, we will reduce the Cymbalta from 120 mg a day down to 60 mg a day. Check CT head for any intracranial lesion accounting for her symptoms. Given her seizure disorder history, we will consult Dr. Solomon, Neurology to adjust her seizure medications. At this time, she is on Depakote 250 mg b.i.d. with meals. Valproic acid level is 37. We will increase the Depakote to 500 mg b.i.d. Check CBC, CMP, valproic acid level in 3 days. Maintain Risperdal 2 mg b.i.d. Get past psychiatric records supporting her diagnosis of bipolar disorder. Adjust further as clinically indicated. MAN Vanesa DREW MD DR: STEFAN/satya JOB#: [id number] / [id number]
--- NOTE | 2018-08-14 01:14 | HP ---
ADMIT DATE: 08/11/2018 PSYCHIATRIC ADMISSION HISTORY AND EVALUATION This is a late entry of date of service of 08/11/2018, covers elements not covered in my initial note. SUMMARY OF PROGRESS: I met with the patient evening of 08/11/2018. IDENTIFYING DATA: The patient is a 57-year-old female referred to us from [facility] by Dr. Helm , her primary care physician on account of worsening of her symptoms of bipolar disorder with acute exacerbation. The patient has been noncompliant with medications to include insulin. She was yelling at staff, throwing things, scratching her face when she does not get her way. She gorging herself or not eating at all. She had been increasingly confused. She has difficulty with her expressive language skills and is totally deaf, probably more coherent and oriented than she appears initially on the surface. CHIEF COMPLAINT: "No." Much of the communication was nonverbal through the white board. HISTORY OF PRESENT ILLNESS: The patient has a history of bipolar disorder with periods of elation, racing thoughts, agitation, and psychotic symptoms, alternating with depression. She also had some cognitive deficits, but some of these could be exacerbated by her being extremely hard of hearing, difficulty with her expressive language skills, though receptive is better. Behaviors have been dangerous, specifically related to refusing insulin and her aggression noted above. She has had sleep and appetite changes. PAST PSYCHIATRIC HISTORY: As above. 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 Chronic yeast in abdominal folds and under breasts. There is one open area under one breast. Accu-Cheks at a.c. and at bedtime. DIET: Regular, texture thin liquids, diabetic diet. Takes medications whole, ambulates independently with a walker and needs help to standing position. DRUG ALLERGIES: Gabapentin, Amoxil, Augmentin, Celexa. CODE STATUS: Full code. CURRENT PSYCHOTROPICS: Risperdal 2 mg b.i.d., Cymbalta 60 mg b.i.d., Depakote Sprinkles 250 mg b.i.d., trazodone 100 mg at bedtime, Xanax p.r.n. FAMILY HISTORY: Noncontributory. SOCIAL HISTORY: No history of alcohol, drug abuse, physical, sexual or elder abuse. She is not known to be a perpetrator. REACTION TO HOSPITALIZATION: The patient is accepting of it. ASSETS: Supportive family, stable living at the [facility]. MENTAL STATUS EXAMINATION: The patient was seen individually evening of 08/12/2018. She has difficulty expressing herself, much communication is nonverbal. Receptive skills are better. She is quite anxious, restless, somewhat paranoid. Insight, judgment, recent memory is impaired. Language function intact. Attention span short. Mood and affect remains quite labile, paranoid, delusional. No active suicidal or homicidal ideation. LABORATORY DATA: Reviewed. IMPRESSION: Bipolar 1 disorder, mixed with psychotic features; anxiety disorder, unspecified; cognitive disorder, unspecified. Rest of diagnosis as above. PLAN: Admit to geropsychiatry unit at [facility]. I will see the patient daily individually from a psychiatric standpoint, medical followup with Dr. Abrams. Continue current psychotropics, observe the patient's baseline. Consider reducing the Cymbalta since specifically given a diagnosis of bipolar disorder, the total dosage of Cymbalta 120 mg a day may be worsening her mood lability. We will adjust Depakote to reach therapeutic level and then perhaps reduce the Risperdal. Further adjustments as clinically indicated. MAN Vanesa DREW MD DR: STEFAN/satya JOB#: [id number] / [id number]
[2018-08-14] MEDS: LEVOTHYROXINE 100 MCG TABLET PO SCH (05:42)
[2018-08-14 06:37] VITALS: BP 105/68
[2018-08-14] MEDS: FUROSEMIDE 40 MG TABLET PO SCH (07:38)
[2018-08-14] MEDS: ALLOPURINOL 100 MG TABLET. PO SCH (07:38)
[2018-08-14] MEDS: metFORMIN 500 MG TABLET PO SCH ×2 (07:38→17:45)
[2018-08-14] MEDS: MULTIVITAMIN with MINERAL TABLET. PO SCH (07:38)
[2018-08-14] MEDS: LISINOPRIL 10 MG TABLET PO SCH (07:39)
[2018-08-14] MEDS: ASCORBIC ACID 500 MG TABLET PO SCH ×2 (07:39→17:00)
[2018-08-14] MEDS: risperiDONE 2 MG TABLET. PO SCH ×3 (07:39→21:35)
[2018-08-14] MEDS: FOLIC ACID 1 MG TABLET PO SCH (07:40)
[2018-08-14] MEDS: CARVEDILOL 12.5 MG TABLET PO SCH ×2 (07:40→17:45)
[2018-08-14] MEDS: CHOLECALCIFEROL (VITAMIN D3) 1,000 UNIT TABLET PO SCH (07:40)
[2018-08-14] MEDS: DULoxetine HCL 60 MG CAPSULE.DR PO SCH (07:42)
[2018-08-14] MEDS: INSULIN LISPRO 300 UNITS/3 ML INSULN.PEN. SQ SCH ×3 (07:42→18:34)
[2018-08-14] MEDS: NYSTATIN TOPICAL POWDER 15GM BOTTLE. TP SCH ×2 (07:44→22:46)
[2018-08-14] MEDS: DICLOFENAC SODIUM 1% TOPICAL GEL 100GM TUBE. TP SCH ×4 (07:44→22:46)
[2018-08-14] MEDS: DIVALPROEX 125 MG CAP.SPRINK PO SCH ×2 (07:45→17:45)
--- NOTE | 2018-08-14 13:23 | RAD ---
PQRS Compliance statement: One or more of the following individualized dose reduction techniques were utilized for this examination: 1. Automated exposure control. 2. Adjustment of the mA and/or kV according to patient size. 3. Use of iterative reconstruction technique. Indication:mental status change TECHNIQUE: CT head without IV contrast COMPARISON: None FINDINGS: Significant motion artifact is seen limiting optimal evaluation. No apparent large pathologic extra-axial or intra-axial fluid collection. The ventricles and basal cisterns are within normal limits. No apparent large intracranial bleed. IMPRESSION: Significant motion artifact limiting optimal evaluation. No apparent acute intracranial bleed. Ideally exam should be repeated when patient can cooperate. Electronically signed by: Jesu Chavez DO (08/14/2018 1:19 PM) [facility]
[2018-08-14 16:35] VITALS: BP 107/80
[2018-08-14] MEDS ORDERED: risperiDONE 1 MG TABLET. PO SCH (19:00)
[2018-08-14] MEDS: traZODone 100 MG TABLET. PO SCH (21:33)
[2018-08-14] MEDS: INSULIN GLARGINE 300 UNITS/3 ML INSULN.PEN. SQ SCH (21:37)
--- NOTE | 2018-08-14 22:57 | PDOC ---
Exam Note: Johnnie Note: Please also refer to the separate dictated note~for this date of service dictated separately.~Patient seen individually. Discussed the patient with Nursing staff reviewed the chart.~Reviewed interim history and current functioning. Reviewed vital signs,~Labs/ Radiology~and current medications noted below. Continue current treatment with the changes noted in the dictated addendum note Assessment: Vital Signs: Vital Signs Date Time Temp Pulse Resp B/P (MAP) Pulse Ox O2 Delivery O2 Flow Rate FiO2 08/14/18 17:45 75 107/80 08/14/18 16:35 97.6 18 98 08/14/18 06:37 Room Air I&O Intake and Output 08/14/18 07:01 Intake Total 600 ml Balance 600 ml Intake Oral 600 ml Labs: Laboratory Tests Test 08/14/18 07:34 08/14/18 11:32 08/14/18 16:25 08/14/18 19:09 Glucose (Fingerstick) 90 mg/dL (70-99) 180 mg/dL (70-99) H 111 mg/dL (70-99) H 144 mg/dL (70-99) H Current Medications: Meds: Current Medications Acetaminophen (Tylenol) 650 mg PRN Q6HRS PRN PO PAIN / TEMP; Start 08/11/18 at 21:00 Multi-Ingredient Ointment (Analgesic [place]) 1 yaima PRN QID PRN TP MUSCLE PAIN; Start 08/11/18 at 21:00 Al Hydroxide/Mg Hydroxide (Mylanta Plus Xs) 15 ml PRN AFTMEALHC PRN PO DYSPEPSIA; Start 08/11/18 at 21:00 Magnesium Hydroxide (Milk Of Magnesia) 2,400 mg PRN QHS PRN PO CONSTIPATION; Start 08/11/18 at 21:00 Alprazolam (Xanax) 0.5 mg PRN Q6HRS PRN PO ANXIETY / AGITATION; Start at 22:30 Divalproex Sodium (Depakote Sprinkles) 250 mg BIDWMEALS PO Last administered on 08/13/18at 18:08; Start 08/12/18 at 08:00; Stop 08/13/18 at 20:26; Status DC Duloxetine HCl (Cymbalta) 60 mg BIDWMEALS PO Last administered on 08/13/18at 18 :08; Start 08/12/18 at 08:00; Stop 08/13/18 at 20:26; Status DC Risperidone (RisperDAL) 2 mg BIDWMEALS PO Last administered on 08/14/18 17:45 ; Start 08/12/18 at 08:00; Stop 08/14/18 at 18:45; Status DC Trazodone HCl (Desyrel) 100 mg HS PO Last administered on 08/14/18at 21:33; Start 08/11/18 at 22:30 Ascorbic Acid (Vitamin C) 500 mg BIDWMEALS PO Last administered on 08/14/18at 17:00; Start 08/12/18 at 08:00 Calcium Carbonate/ Glycine (Tums) 500 mg PRN Q6HRS PRN PO INDIGESTION; Start 08/11/18 at 22:15 Vitamin D (Vitamin D3) 2,000 unit DAILY PO Last administered on 08/14/18 07: 40; Start 08/12/18 at 09:00 Diclofenac Sodium (Voltaren) 1 yaima QID TP Last administered on 08/14/18at 22:46 ; Start 08/12/18 at 09:00 Guaifenesin (Mucinex Er) 600 mg BIDWMEALS PO Last administered on 08/14/18 17 :45; Start 08/12/18 at 08:00 Acetaminophen/ Hydrocodone Bitart (Lortab 5/325) 1 tab PRN Q6HRS PRN PO PAIN; Start 08/11/18 at 22:15 Levothyroxine Sodium (Synthroid) 100 mcg DAILY06 PO Last administered on at 05:42; Start 08/12/18 at 06:00 Lisinopril (Prinivil) 10 mg DAILY PO Last administered on 08/14/18at 07:39; Start 08/12/18 at 09:00 Nitroglycerin (Nitrostat) 0.4 mg PRN Q5MIN PRN SL CHEST PAIN; Start 08/11/18 at 22:15 Nystatin (Nystop) 1 yaima BID TP Last administered on 08/14/18 22:46; Start at 09:00 Allopurinol (Zyloprim) 100 mg DAILY PO Last administered on 08/14/18at 07:38; Start 08/12/18 at 09:00 Carvedilol (Coreg) 12.5 mg BIDWMEALS PO Last administered on 08/14/18 17:45; Start 08/12/18 at 08:00 Folic Acid (Folic Acid) 1 mg DAILY PO Last administered on 08/14/18at 07:40; Start 08/12/18 at 09:00 Furosemide (Lasix) 40 mg DAILY PO Last administered on 08/14/18 07:38; Start 08/12/18 at 09:00 Insulin Human Lispro (HumaLOG) 5 units TIDWMEALS SQ Last administered on 18:34; Start 08/12/18 at 08:00 Insulin Glargine (Lantus) 10 units QHS SQ Last administered on 08/14/18 21:37 ; Start 08/11/18 at 23:00 Loperamide HCl (Imodium) 2 mg PRN Q6HRS PRN PO DIARRHEA; Start 08/11/18 at 22: 45 Non-Formulary Medication (Magnesium Hydroxide (Milk Of Magnesia)) 2,400 mg PRN DAILY PRN PO CONSTIPATION; Start 08/11/18 at 22:15; Status UNV Metformin HCl (Glucophage) 1,000 mg BIDWMEALS PO Last administered on 17:45; Start 08/12/18 at 08:00 Methotrexate (Rheumatrex) 15 mg WEEKLY PO ; Start 08/18/18 at 09:00 Multivitamins/ Calcium (Thera-M Plus) 1 tab DAILY PO Last administered on 08/14at 07:38; Start 08/12/18 at 09:00 Glucose (Insta-Glucose) 15 gm PRN Q15MIN PRN PO LOW BLOOD SUGAR; Start at 08:15 Divalproex Sodium (Depakote Sprinkles) 500 mg BIDWMEALS PO ; Start 08/13/18 at 20:27; Stop 08/13/18 at 20:36; Status DC Duloxetine HCl (Cymbalta) 60 mg DAILY PO Last administered on 08/14/18at 07:42 ; Start 08/14/18 at 09:00 Divalproex Sodium (Depakote Sprinkles) 500 mg BIDWMEALS PO Last administered on 08/14/18at 17:45; Start 08/14/18 at 08:00 Risperidone (RisperDAL) 1.5 mg DAILY PO ; Start 08/14/18 at 19:00; Stop at 19:00; Status DC Risperidone (RisperDAL) 2 mg HS PO Last administered on 08/14/18at 21:35; Start 08/14/18 at 21:00; Stop 08/18/18 at 20:59 Risperidone (RisperDAL) 1.5 mg HS PO ; Start 08/18/18 at 21:00 Risperidone (RisperDAL) 1.5 mg DAILY PO ; Start 08/15/18 at 09:00 Active Scripts Active Reported Xanax (Alprazolam) 0.5 Mg Tablet 0.5 Mg PO PRN Q6HRS PRN Hydrocodone-Apap 5-325 (Hydrocodone Bit/Acetaminophen) 1 Each Tablet 1 Tab PO PRN Q6HRS PRN Voltaren (Diclofenac Sodium) 100 Gm Gel..gram. 4 Gm TP QID Nystatin 15 Gm Powder 1 Yaima TP BID Tums (Calcium Carbonate) 200 Mg Tab.chew 2 Tab PO PRN Q6HRS PRN Nitrostat (Nitroglycerin) 0.4 Mg Tab.subl 0.4 Mg SL PRN Q5MIN PRN Milk Of Magnesia (Magnesium Hydroxide) 2,400 Mg/10 Ml Oral.susp 2,400 Mg PO PRN DAILY PRN Loperamide (Loperamide Hcl) 2 Mg Tablet 2 Mg PO PRN Q6HRS PRN Vitamin C (Ascorbic Acid) 500 Mg Tablet 500 Mg PO BIDWMEALS Risperdal (Risperidone) 2 Mg Tablet 2 Mg PO BIDWMEALS Mucinex (Guaifenesin) 600 Mg Tablet.er 600 Mg PO BIDWMEALS Metformin Hcl 1,000 Mg Tablet 1,000 Mg PO BIDWMEALS Cymbalta (Duloxetine Hcl) 60 Mg Capsule.dr 60 Mg PO BIDWMEALS Depakote Sprinkle (Divalproex Sodium) 125 Mg Cap.sprink 250 Mg PO BIDWMEALS Coreg (Carvedilol) 12.5 Mg Tablet 12.5 Mg PO BIDWMEALS Vitamin D3 (Cholecalciferol (Vitamin D3)) 1,000 Unit Tablet 2,000 Unit PO DAILY Trazodone Hcl 100 Mg Tablet 100 Mg PO HS Multivitamins (Multivitamin) 1 Each Tablet 1 Tab PO DAILY Methotrexate (Methotrexate Sodium) 2.5 Mg Tablet 15 Mg PO WEEKLY Lisinopril 10 Mg Tablet 10 Mg PO DAILY Levothyroxine Sodium 100 Mcg Tablet 100 Mcg PO DAILYAC Lasix (Furosemide) 40 Mg Tablet 40 Mg PO DAILY Folic Acid 1 Mg Tablet 1 Mg PO DAILY Allopurinol 100 Mg Tablet 100 Mg PO DAILY Novolog (Insulin Aspart) 100 Unit/1 Ml Vial 5 Unit SQ TIDWMEALS Levemir (Insulin Detemir) 100 Unit/1 Ml Vial 10 Unit SQ HS I have reviewed the current psychotropics carefully including drug interactions. Risk benefit ratio favors no change other than as noted in my dictated progress note. Diagnosis: Problems: (1) Anxiety disorder (2) Major depressive disorder, recurrent episode (3) Impulse control disorder (4) Dementia in Alzheimer's disease with delusions (5) Dementia in Alzheimer's disease with depression (6) Dementia, vascular, with delusions (7) Dementia, vascular, with depression KAITLIN DREW MD Aug 14, 2018 22:57
[2018-08-15] MEDS: LEVOTHYROXINE 100 MCG TABLET PO SCH (03:59)
[2018-08-15 06:26] VITALS: BP 110/68
[2018-08-15] MEDS: ASCORBIC ACID 500 MG TABLET PO SCH ×2 (07:49→16:38)
[2018-08-15] MEDS: metFORMIN 500 MG TABLET PO SCH ×2 (07:50→16:41)
[2018-08-15] MEDS: MULTIVITAMIN with MINERAL TABLET. PO SCH (07:50)
[2018-08-15] MEDS: CHOLECALCIFEROL (VITAMIN D3) 1,000 UNIT TABLET PO SCH (07:50)
[2018-08-15] MEDS: FUROSEMIDE 40 MG TABLET PO SCH (07:50)
[2018-08-15] MEDS: FOLIC ACID 1 MG TABLET PO SCH (07:50)
[2018-08-15] MEDS: ALLOPURINOL 100 MG TABLET. PO SCH (07:50)
[2018-08-15] MEDS: CARVEDILOL 12.5 MG TABLET PO SCH ×2 (07:51→16:40)
[2018-08-15] MEDS: DIVALPROEX 125 MG CAP.SPRINK PO SCH ×2 (07:51→16:39)
[2018-08-15] MEDS: LISINOPRIL 10 MG TABLET PO SCH (07:51)
[2018-08-15] MEDS: DULoxetine HCL 60 MG CAPSULE.DR PO SCH (07:51)
[2018-08-15] MEDS: INSULIN LISPRO 300 UNITS/3 ML INSULN.PEN. SQ SCH ×3 (07:54→17:02)
[2018-08-15] MEDS: NYSTATIN TOPICAL POWDER 15GM BOTTLE. TP SCH ×2 (07:54→20:18)
[2018-08-15] MEDS: risperiDONE 1 MG TABLET. PO SCH (07:55)
[2018-08-15] MEDS: DICLOFENAC SODIUM 1% TOPICAL GEL 100GM TUBE. TP SCH ×4 (07:56→20:18)
[2018-08-15 16:23] VITALS: BP 111/57
--- NOTE | 2018-08-15 18:59 | PDOC ---
Exam Note: Johnnie Note: Please also refer to the separate dictated note~for this date of service dictated separately.~Patient seen individually. Discussed the patient with Nursing staff reviewed the chart.~Reviewed interim history and current functioning. Reviewed vital signs,~Labs/ Radiology~and current medications noted below. Continue current treatment with the changes noted in the dictated addendum note Assessment: Vital Signs: Vital Signs Date Time Temp Pulse Resp B/P (MAP) Pulse Ox O2 Delivery O2 Flow Rate FiO2 08/15/18 16:40 68 111/57 08/15/18 16:23 97.0 20 96 Room Air I&O Intake and Output 08/15/18 07:01 Intake Total 1320 ml Balance 1320 ml Intake Oral 1320 ml # Bowel Movements 1 Labs: Laboratory Tests Test 08/14/18 19:09 08/15/18 07:17 08/15/18 11:45 08/15/18 16:38 Glucose (Fingerstick) 144 mg/dL (70-99) H 94 mg/dL (70-99) 92 mg/dL (70-99) 97 mg/dL (70-99) Current Medications: Meds: Current Medications Acetaminophen (Tylenol) 650 mg PRN Q6HRS PRN PO PAIN / TEMP; Start 08/11/18 at 21:00 Multi-Ingredient Ointment (Analgesic [place]) 1 yaima PRN QID PRN TP MUSCLE PAIN; Start 08/11/18 at 21:00 Al Hydroxide/Mg Hydroxide (Mylanta Plus Xs) 15 ml PRN AFTMEALHC PRN PO DYSPEPSIA; Start 08/11/18 at 21:00 Magnesium Hydroxide (Milk Of Magnesia) 2,400 mg PRN QHS PRN PO CONSTIPATION; Start 08/11/18 at 21:00 Alprazolam (Xanax) 0.5 mg PRN Q6HRS PRN PO ANXIETY / AGITATION; Start at 22:30 Divalproex Sodium (Depakote Sprinkles) 250 mg BIDWMEALS PO Last administered on 08/13/18at 18:08; Start 08/12/18 at 08:00; Stop 08/13/18 at 20:26; Status DC Duloxetine HCl (Cymbalta) 60 mg BIDWMEALS PO Last administered on 08/13/18at 18 :08; Start 08/12/18 at 08:00; Stop 08/13/18 at 20:26; Status DC Risperidone (RisperDAL) 2 mg BIDWMEALS PO Last administered on 08/14/18at 17:45 ; Start 08/12/18 at 08:00; Stop 08/14/18 at 18:45; Status DC Trazodone HCl (Desyrel) 100 mg HS PO Last administered on 08/14/18at 21:33; Start 08/11/18 at 22:30 Ascorbic Acid (Vitamin C) 500 mg BIDWMEALS PO Last administered on 08/15/18 16:38; Start 08/12/18 at 08:00 Calcium Carbonate/ Glycine (Tums) 500 mg PRN Q6HRS PRN PO INDIGESTION; Start 08/11/18 at 22:15 Vitamin D (Vitamin D3) 2,000 unit DAILY PO Last administered on 08/15/18 07: 50; Start 08/12/18 at 09:00 Diclofenac Sodium (Voltaren) 1 yaima QID TP Last administered on 08/15/18 16:42 ; Start 08/12/18 at 09:00 Guaifenesin (Mucinex Er) 600 mg BIDWMEALS PO Last administered on 08/15/18 16 :38; Start 08/12/18 at 08:00 Acetaminophen/ Hydrocodone Bitart (Lortab 5/325) 1 tab PRN Q6HRS PRN PO PAIN; Start 08/11/18 at 22:15 Levothyroxine Sodium (Synthroid) 100 mcg DAILY06 PO Last administered on at 03:59; Start 08/12/18 at 06:00 Lisinopril (Prinivil) 10 mg DAILY PO Last administered on 08/15/18 07:51; Start 08/12/18 at 09:00 Nitroglycerin (Nitrostat) 0.4 mg PRN Q5MIN PRN SL CHEST PAIN; Start 08/11/18 at 22:15 Nystatin (Nystop) 1 yaima BID TP Last administered on 08/15/18 07:54; Start at 09:00 Allopurinol (Zyloprim) 100 mg DAILY PO Last administered on 08/15/18 07:50; Start 08/12/18 at 09:00 Carvedilol (Coreg) 12.5 mg BIDWMEALS PO Last administered on 08/15/18 16:40; Start 08/12/18 at 08:00 Folic Acid (Folic Acid) 1 mg DAILY PO Last administered on 08/15/18at 07:50; Start 08/12/18 at 09:00 Furosemide (Lasix) 40 mg DAILY PO Last administered on 08/15/18 07:50; Start 08/12/18 at 09:00 Insulin Human Lispro (HumaLOG) 5 units TIDWMEALS SQ Last administered on at 17:02; Start 08/12/18 at 08:00 Insulin Glargine (Lantus) 10 units QHS SQ Last administered on 08/14/18at 21:37 ; Start 08/11/18 at 23:00 Loperamide HCl (Imodium) 2 mg PRN Q6HRS PRN PO DIARRHEA; Start 08/11/18 at 22: 45 Non-Formulary Medication (Magnesium Hydroxide (Milk Of Magnesia)) 2,400 mg PRN DAILY PRN PO CONSTIPATION; Start 08/11/18 at 22:15; Status UNV Metformin HCl (Glucophage) 1,000 mg BIDWMEALS PO Last administered on 16:41; Start 08/12/18 at 08:00 Methotrexate (Rheumatrex) 15 mg WEEKLY PO ; Start 08/18/18 at 09:00 Multivitamins/ Calcium (Thera-M Plus) 1 tab DAILY PO Last administered on 08/15at 07:50; Start 08/12/18 at 09:00 Glucose (Insta-Glucose) 15 gm PRN Q15MIN PRN PO LOW BLOOD SUGAR; Start at 08:15 Divalproex Sodium (Depakote Sprinkles) 500 mg BIDWMEALS PO ; Start 08/13/18 at 20:27; Stop 08/13/18 at 20:36; Status DC Duloxetine HCl (Cymbalta) 60 mg DAILY PO Last administered on 08/15/18at 07:51 ; Start 08/14/18 at 09:00 Divalproex Sodium (Depakote Sprinkles) 500 mg BIDWMEALS PO Last administered on 08/15/18at 16:39; Start 08/14/18 at 08:00 Risperidone (RisperDAL) 1.5 mg DAILY PO ; Start 08/14/18 at 19:00; Stop at 19:00; Status DC Risperidone (RisperDAL) 2 mg HS PO Last administered on 08/14/18at 21:35; Start 08/14/18 at 21:00; Stop 08/18/18 at 20:59 Risperidone (RisperDAL) 1.5 mg HS PO ; Start 08/18/18 at 21:00 Risperidone (RisperDAL) 1.5 mg DAILY PO Last administered on 08/15/18at 07:55; Start 08/15/18 at 09:00 Active Scripts Active Reported Xanax (Alprazolam) 0.5 Mg Tablet 0.5 Mg PO PRN Q6HRS PRN Hydrocodone-Apap 5-325 (Hydrocodone Bit/Acetaminophen) 1 Each Tablet 1 Tab PO PRN Q6HRS PRN Voltaren (Diclofenac Sodium) 100 Gm Gel..gram. 4 Gm TP QID Nystatin 15 Gm Powder 1 Yaima TP BID Tums (Calcium Carbonate) 200 Mg Tab.chew 2 Tab PO PRN Q6HRS PRN Nitrostat (Nitroglycerin) 0.4 Mg Tab.subl 0.4 Mg SL PRN Q5MIN PRN Milk Of Magnesia (Magnesium Hydroxide) 2,400 Mg/10 Ml Oral.susp 2,400 Mg PO PRN DAILY PRN Loperamide (Loperamide Hcl) 2 Mg Tablet 2 Mg PO PRN Q6HRS PRN Vitamin C (Ascorbic Acid) 500 Mg Tablet 500 Mg PO BIDWMEALS Risperdal (Risperidone) 2 Mg Tablet 2 Mg PO BIDWMEALS Mucinex (Guaifenesin) 600 Mg Tablet.er 600 Mg PO BIDWMEALS Metformin Hcl 1,000 Mg Tablet 1,000 Mg PO BIDWMEALS Cymbalta (Duloxetine Hcl) 60 Mg Capsule.dr 60 Mg PO BIDWMEALS Depakote Sprinkle (Divalproex Sodium) 125 Mg Cap.sprink 250 Mg PO BIDWMEALS Coreg (Carvedilol) 12.5 Mg Tablet 12.5 Mg PO BIDWMEALS Vitamin D3 (Cholecalciferol (Vitamin D3)) 1,000 Unit Tablet 2,000 Unit PO DAILY Trazodone Hcl 100 Mg Tablet 100 Mg PO HS Multivitamins (Multivitamin) 1 Each Tablet 1 Tab PO DAILY Methotrexate (Methotrexate Sodium) 2.5 Mg Tablet 15 Mg PO WEEKLY Lisinopril 10 Mg Tablet 10 Mg PO DAILY Levothyroxine Sodium 100 Mcg Tablet 100 Mcg PO DAILYAC Lasix (Furosemide) 40 Mg Tablet 40 Mg PO DAILY Folic Acid 1 Mg Tablet 1 Mg PO DAILY Allopurinol 100 Mg Tablet 100 Mg PO DAILY Novolog (Insulin Aspart) 100 Unit/1 Ml Vial 5 Unit SQ TIDWMEALS Levemir (Insulin Detemir) 100 Unit/1 Ml Vial 10 Unit SQ HS I have reviewed the current psychotropics carefully including drug interactions. Risk benefit ratio favors no change other than as noted in my dictated progress note. Diagnosis: Problems: (1) Anxiety disorder (2) Major depressive disorder, recurrent episode (3) Impulse control disorder (4) Dementia in Alzheimer's disease with delusions (5) Dementia in Alzheimer's disease with depression (6) Dementia, vascular, with delusions (7) Dementia, vascular, with depression KAITLIN DREW MD Aug 15, 2018 18:59
[2018-08-15] MEDS: ALPRAZolam 0.5 MG TABLET PO PRN (20:18)
[2018-08-15] MEDS: risperiDONE 2 MG TABLET. PO SCH (20:18)
[2018-08-15] MEDS: traZODone 100 MG TABLET. PO SCH (20:18)
[2018-08-15] MEDS: INSULIN GLARGINE 300 UNITS/3 ML INSULN.PEN. SQ SCH (20:19)
[2018-08-16] MEDS: LEVOTHYROXINE 100 MCG TABLET PO SCH (05:39)
[2018-08-16 06:13] VITALS: BP 128/57
[2018-08-16] MEDS: LISINOPRIL 10 MG TABLET PO SCH (07:37)
[2018-08-16] MEDS: ALLOPURINOL 100 MG TABLET. PO SCH (07:37)
[2018-08-16] MEDS: ASCORBIC ACID 500 MG TABLET PO SCH ×2 (07:38→17:00)
[2018-08-16] MEDS: risperiDONE 1 MG TABLET. PO SCH (07:38)
[2018-08-16] MEDS: CHOLECALCIFEROL (VITAMIN D3) 1,000 UNIT TABLET PO SCH (07:38)
[2018-08-16] MEDS: FOLIC ACID 1 MG TABLET PO SCH (07:38)
[2018-08-16] MEDS: MULTIVITAMIN with MINERAL TABLET. PO SCH (07:38)
[2018-08-16] MEDS: FUROSEMIDE 40 MG TABLET PO SCH (07:39)
[2018-08-16] MEDS: DULoxetine HCL 60 MG CAPSULE.DR PO SCH (07:39)
[2018-08-16] MEDS: DIVALPROEX 125 MG CAP.SPRINK PO SCH ×2 (07:39→17:00)
[2018-08-16] MEDS: metFORMIN 500 MG TABLET PO SCH ×2 (07:39→17:00)
[2018-08-16] MEDS: NYSTATIN TOPICAL POWDER 15GM BOTTLE. TP SCH ×2 (07:39→18:51)
[2018-08-16] MEDS: CARVEDILOL 12.5 MG TABLET PO SCH ×2 (07:39→17:00)
[2018-08-16] MEDS: DICLOFENAC SODIUM 1% TOPICAL GEL 100GM TUBE. TP SCH ×4 (07:40→18:51)
[2018-08-16] MEDS: INSULIN LISPRO 300 UNITS/3 ML INSULN.PEN. SQ SCH ×3 (07:41→17:00)
[2018-08-16 16:50] VITALS: BP_SYST 61
--- NOTE | 2018-08-16 18:18 | PN ---
DATE: 08/14/2018 PSYCHIATRIC PROGRESS NOTE This late entry 08/14/2018 covers elements not covered in my initial note. SUBJECTIVE: Met with the patient in the evening. Per nursing report, she remains somewhat anxious, labile at times. CT head showed movement artifact. No acute changes in ____. We will obtain her medical records from [place]. She does have some movement disorder, possible tardive dyskinesia. REVIEW OF SYSTEMS: Positive for being extremely hard of hearing, deaf with expressive aphasia. Ambulation is impaired with walker. No CV, , pulmonary, eye system symptoms on review. MENTAL STATUS EXAM: Oriented to herself and situation. Speech as above. Abstraction fair. Computation difficult to assess due to above. Attention span short. Language function intact. Mood and affect somewhat withdrawn, anxious. LABORATORY DATA: Reviewed. IMPRESSION: Bipolar 1 disorder, mixed anxiety disorder, unspecified; cognitive disorder, unspecified. PLAN: Reduce the Risperdal gradually down to 1.5 mg twice a day from current 2 mg twice a day. We do not see overt psychotic symptoms. Risk/benefit ratio favors reducing the Risperdal for now. Reduce the Cymbalta from 60 b.i.d. down to 60 mg a day since the higher dosage could worsen her bipolar symptoms. She is on Depakote Sprinkles 500 mg b.i.d. with valproic acid subtherapeutic. Depakote is being adjusted to reach therapeutic level. KAITLIN DREW MD DR: STEFAN/satya JOB#: [id number] / [id number]
--- NOTE | 2018-08-16 18:20 | PN ---
DATE: 08/16/2018 This is a late entry 08/15/2018 covers elements not covered in my initial note. SUBJECTIVE: I met with the patient in the evening. The patient slept 7-3/4 hours previous night, less anxious, labile, but frustrated with her being deaf and with expressive language deficits. No CV, , pulmonary, eye system symptoms on review. MENTAL STATUS EXAM: Oriented to herself, situation met with her in her room. Speech as above. Abstraction fair. Computation difficult to assess, remains somewhat paranoid, but no clear suicidal or homicidal ideation. Attention span is short. IMPRESSION: Bipolar 1 disorder, mixed cognitive disorder, unspecified. Rest as above. PLAN: Obtain records regarding past psychiatric treatment and diagnosis of bipolar disorder. Risperdal has been reduced, Cymbalta has been reduced and Depakote has been adjusted. Repeat labs level. MAN Vanesa DREW MD DR: STEFAN/satya JOB#: [id number] / [id number]
[2018-08-16] MEDS: risperiDONE 2 MG TABLET. PO SCH (18:51)
[2018-08-16] MEDS: traZODone 100 MG TABLET. PO SCH (18:51)
--- NOTE | 2018-08-16 19:06 | PDOC ---
Exam Note: Johnnie Note: Please also refer to the separate dictated note~for this date of service dictated separately.~Patient seen individually. Discussed the patient with Nursing staff reviewed the chart.~Reviewed interim history and current functioning. Reviewed vital signs,~Labs/ Radiology~and current medications noted below. Continue current treatment with the changes noted in the dictated addendum note Assessment: Vital Signs: Vital Signs Date Time Temp Pulse Resp B/P (MAP) Pulse Ox O2 Delivery O2 Flow Rate FiO2 08/16/18 17:00 84 143/61 08/16/18 16:50 97.5 20 96 08/16/18 06:13 Room Air I&O Intake and Output 08/16/18 07:01 Intake Total 1560 ml Balance 1560 ml Intake Oral 1560 ml # Bowel Movements 1 Labs: Laboratory Tests Test 08/15/18 19:18 08/16/18 07:21 08/16/18 11:38 08/16/18 17:55 Glucose (Fingerstick) 173 mg/dL (70-99) H 81 mg/dL (70-99) 89 mg/dL (70-99) 141 mg/dL (70-99) H Current Medications: Meds: Current Medications Acetaminophen (Tylenol) 650 mg PRN Q6HRS PRN PO PAIN / TEMP; Start 08/11/18 at 21:00 Multi-Ingredient Ointment (Analgesic [place]) 1 yaima PRN QID PRN TP MUSCLE PAIN; Start 08/11/18 at 21:00 Al Hydroxide/Mg Hydroxide (Mylanta Plus Xs) 15 ml PRN AFTMEALHC PRN PO DYSPEPSIA; Start 08/11/18 at 21:00 Magnesium Hydroxide (Milk Of Magnesia) 2,400 mg PRN QHS PRN PO CONSTIPATION; Start 08/11/18 at 21:00 Alprazolam (Xanax) 0.5 mg PRN Q6HRS PRN PO ANXIETY / AGITATION Last administered on 08/15/18at 20:18; Start 08/11/18 at 22:30 Divalproex Sodium (Depakote Sprinkles) 250 mg BIDWMEALS PO Last administered on 08/13/18at 18:08; Start 08/12/18 at 08:00; Stop 08/13/18 at 20:26; Status DC Duloxetine HCl (Cymbalta) 60 mg BIDWMEALS PO Last administered on 08/13/18 18 :08; Start 08/12/18 at 08:00; Stop 08/13/18 at 20:26; Status DC Risperidone (RisperDAL) 2 mg BIDWMEALS PO Last administered on 08/14/18at 17:45 ; Start 08/12/18 at 08:00; Stop 08/14/18 at 18:45; Status DC Trazodone HCl (Desyrel) 100 mg HS PO Last administered on 08/16/18 18:51; Start 08/11/18 at 22:30 Ascorbic Acid (Vitamin C) 500 mg BIDWMEALS PO Last administered on 08/16/18 17:00; Start 08/12/18 at 08:00 Calcium Carbonate/ Glycine (Tums) 500 mg PRN Q6HRS PRN PO INDIGESTION; Start 08/11/18 at 22:15 Vitamin D (Vitamin D3) 2,000 unit DAILY PO Last administered on 08/16/18at 07: 38; Start 08/12/18 at 09:00 Diclofenac Sodium (Voltaren) 1 yaima QID TP Last administered on 08/16/18 18:51 ; Start 08/12/18 at 09:00 Guaifenesin (Mucinex Er) 600 mg BIDWMEALS PO Last administered on 08/16/18 17 :00; Start 08/12/18 at 08:00 Acetaminophen/ Hydrocodone Bitart (Lortab 5/325) 1 tab PRN Q6HRS PRN PO PAIN; Start 08/11/18 at 22:15 Levothyroxine Sodium (Synthroid) 100 mcg DAILY06 PO Last administered on at 05:39; Start 08/12/18 at 06:00 Lisinopril (Prinivil) 10 mg DAILY PO Last administered on 08/16/18 07:37; Start 08/12/18 at 09:00 Nitroglycerin (Nitrostat) 0.4 mg PRN Q5MIN PRN SL CHEST PAIN; Start 08/11/18 at 22:15 Nystatin (Nystop) 1 yaima BID TP Last administered on 08/16/18 18:51; Start at 09:00 Allopurinol (Zyloprim) 100 mg DAILY PO Last administered on 08/16/18 07:37; Start 08/12/18 at 09:00 Carvedilol (Coreg) 12.5 mg BIDWMEALS PO Last administered on 08/16/18 17:00; Start 08/12/18 at 08:00 Folic Acid (Folic Acid) 1 mg DAILY PO Last administered on 08/16/18 07:38; Start 08/12/18 at 09:00 Furosemide (Lasix) 40 mg DAILY PO Last administered on 08/16/18 07:39; Start 08/12/18 at 09:00 Insulin Human Lispro (HumaLOG) 5 units TIDWMEALS SQ Last administered on 17:00; Start 08/12/18 at 08:00 Insulin Glargine (Lantus) 10 units QHS SQ Last administered on 08/15/18 20:19 ; Start 08/11/18 at 23:00 Loperamide HCl (Imodium) 2 mg PRN Q6HRS PRN PO DIARRHEA; Start 08/11/18 at 22: 45 Non-Formulary Medication (Magnesium Hydroxide (Milk Of Magnesia)) 2,400 mg PRN DAILY PRN PO CONSTIPATION; Start 08/11/18 at 22:15; Status UNV Metformin HCl (Glucophage) 1,000 mg BIDWMEALS PO Last administered on 17:00; Start 08/12/18 at 08:00 Methotrexate (Rheumatrex) 15 mg WEEKLY PO ; Start 08/18/18 at 09:00 Multivitamins/ Calcium (Thera-M Plus) 1 tab DAILY PO Last administered on 08/16at 07:38; Start 08/12/18 at 09:00 Glucose (Insta-Glucose) 15 gm PRN Q15MIN PRN PO LOW BLOOD SUGAR; Start at 08:15 Divalproex Sodium (Depakote Sprinkles) 500 mg BIDWMEALS PO ; Start 08/13/18 at 20:27; Stop 08/13/18 at 20:36; Status DC Duloxetine HCl (Cymbalta) 60 mg DAILY PO Last administered on 08/16/18at 07:39 ; Start 08/14/18 at 09:00 Divalproex Sodium (Depakote Sprinkles) 500 mg BIDWMEALS PO Last administered on 08/16/18at 17:00; Start 08/14/18 at 08:00 Risperidone (RisperDAL) 1.5 mg DAILY PO ; Start 08/14/18 at 19:00; Stop at 19:00; Status DC Risperidone (RisperDAL) 2 mg HS PO Last administered on 08/16/18at 18:51; Start 08/14/18 at 21:00; Stop 08/18/18 at 20:59 Risperidone (RisperDAL) 1.5 mg HS PO ; Start 08/18/18 at 21:00 Risperidone (RisperDAL) 1.5 mg DAILY PO Last administered on 08/16/18at 07:38; Start 08/15/18 at 09:00 Amantadine HCl (Symmetrel) 100 mg DAILY PO ; Start 08/17/18 at 09:00 Active Scripts Active Reported Xanax (Alprazolam) 0.5 Mg Tablet 0.5 Mg PO PRN Q6HRS PRN Hydrocodone-Apap 5-325 (Hydrocodone Bit/Acetaminophen) 1 Each Tablet 1 Tab PO PRN Q6HRS PRN Voltaren (Diclofenac Sodium) 100 Gm Gel..gram. 4 Gm TP QID Nystatin 15 Gm Powder 1 Yaima TP BID Tums (Calcium Carbonate) 200 Mg Tab.chew 2 Tab PO PRN Q6HRS PRN Nitrostat (Nitroglycerin) 0.4 Mg Tab.subl 0.4 Mg SL PRN Q5MIN PRN Milk Of Magnesia (Magnesium Hydroxide) 2,400 Mg/10 Ml Oral.susp 2,400 Mg PO PRN DAILY PRN Loperamide (Loperamide Hcl) 2 Mg Tablet 2 Mg PO PRN Q6HRS PRN Vitamin C (Ascorbic Acid) 500 Mg Tablet 500 Mg PO BIDWMEALS Risperdal (Risperidone) 2 Mg Tablet 2 Mg PO BIDWMEALS Mucinex (Guaifenesin) 600 Mg Tablet.er 600 Mg PO BIDWMEALS Metformin Hcl 1,000 Mg Tablet 1,000 Mg PO BIDWMEALS Cymbalta (Duloxetine Hcl) 60 Mg Capsule.dr 60 Mg PO BIDWMEALS Depakote Sprinkle (Divalproex Sodium) 125 Mg Cap.sprink 250 Mg PO BIDWMEALS Coreg (Carvedilol) 12.5 Mg Tablet 12.5 Mg PO BIDWMEALS Vitamin D3 (Cholecalciferol (Vitamin D3)) 1,000 Unit Tablet 2,000 Unit PO DAILY Trazodone Hcl 100 Mg Tablet 100 Mg PO HS Multivitamins (Multivitamin) 1 Each Tablet 1 Tab PO DAILY Methotrexate (Methotrexate Sodium) 2.5 Mg Tablet 15 Mg PO WEEKLY Lisinopril 10 Mg Tablet 10 Mg PO DAILY Levothyroxine Sodium 100 Mcg Tablet 100 Mcg PO DAILYAC Lasix (Furosemide) 40 Mg Tablet 40 Mg PO DAILY Folic Acid 1 Mg Tablet 1 Mg PO DAILY Allopurinol 100 Mg Tablet 100 Mg PO DAILY Novolog (Insulin Aspart) 100 Unit/1 Ml Vial 5 Unit SQ TIDWMEALS Levemir (Insulin Detemir) 100 Unit/1 Ml Vial 10 Unit SQ HS I have reviewed the current psychotropics carefully including drug interactions. Risk benefit ratio favors no change other than as noted in my dictated progress note. Diagnosis: Problems: (1) Anxiety disorder (2) Major depressive disorder, recurrent episode (3) Impulse control disorder (4) Dementia in Alzheimer's disease with delusions (5) Dementia in Alzheimer's disease with depression (6) Dementia, vascular, with delusions (7) Dementia, vascular, with depression KAITLIN DREW MD Aug 16, 2018 19:06
[2018-08-16] MEDS: INSULIN GLARGINE 300 UNITS/3 ML INSULN.PEN. SQ SCH (20:36)
[2018-08-17 05:46] VITALS: BP 97/61
[2018-08-17] MEDS: LEVOTHYROXINE 100 MCG TABLET PO SCH (06:19)
[2018-08-17 08:05] LABS: BASO % 0 % (0-3); EOS # 0.2 x10^3/uL (0.0-0.7); EOS % 3 % (0-3); HEMATOCRIT 38.7 % (36.0-47.0); HEMOGLOBIN 12.5 g/dL (12.0-15.5); LYMPH # 2.3 x10^3/uL (1.0-4.8); LYMPH % 33 % (24-48); MEAN CORPUSCULAR HEMOGLOBIN 31 pg (25-35); MEAN CORPUSCULAR HGB CONC 32 g/dL (31-37); MEAN CORPUSCULAR VOLUME 97 fL (79-100); MONO % 14 % (0-9); NEUT # 3.4 x10^3uL (1.8-7.7); NEUT % 49 % (31-73); PLATELET COUNT 244 x10^3/uL (140-400); RED BLOOD COUNT 3.99 x10^6/uL (3.50-5.40); RED CELL DISTRIBUTION WIDTH 18.3 % (11.5-14.5)
[2018-08-17] MEDS: CHOLECALCIFEROL (VITAMIN D3) 1,000 UNIT TABLET PO SCH (08:06)
[2018-08-17] MEDS: metFORMIN 500 MG TABLET PO SCH ×2 (08:06→17:28)
[2018-08-17] MEDS: MULTIVITAMIN with MINERAL TABLET. PO SCH (08:06)
[2018-08-17] MEDS: DIVALPROEX 125 MG CAP.SPRINK PO SCH ×2 (08:07→17:28)
[2018-08-17] MEDS: FOLIC ACID 1 MG TABLET PO SCH (08:07)
[2018-08-17] MEDS: LISINOPRIL 10 MG TABLET PO SCH (08:07)
[2018-08-17] MEDS: CARVEDILOL 12.5 MG TABLET PO SCH ×2 (08:08→17:29)
[2018-08-17] MEDS: ALLOPURINOL 100 MG TABLET. PO SCH (08:08)
[2018-08-17] MEDS: ASCORBIC ACID 500 MG TABLET PO SCH ×2 (08:08→17:29)
[2018-08-17] MEDS: FUROSEMIDE 40 MG TABLET PO SCH (08:08)
[2018-08-17] MEDS: risperiDONE 1 MG TABLET. PO SCH ×2 (08:08→21:29)
[2018-08-17] MEDS: DULoxetine HCL 60 MG CAPSULE.DR PO SCH (08:08)
[2018-08-17] MEDS: INSULIN LISPRO 300 UNITS/3 ML INSULN.PEN. SQ SCH ×3 (08:11→17:31)
[2018-08-17] MEDS: AMANTADINE HCL 100 MG CAPSULE PO SCH (08:13)
[2018-08-17] MEDS: NYSTATIN TOPICAL POWDER 15GM BOTTLE. TP SCH ×2 (08:14→21:00)
[2018-08-17] MEDS: DICLOFENAC SODIUM 1% TOPICAL GEL 100GM TUBE. TP SCH ×5 (08:15→21:24)
[2018-08-17 08:22] LABS: ALBUMIN 2.6 g/dL (3.4-5.0); ALBUMIN/GLOBULIN RATIO 0.7 (1.0-1.7); ALK PHOS 78 U/L (46-116); ALT (SGPT) 19 U/L (14-59); ANION GAP 6 (6-14); AST (SGOT) 13 U/L (15-37); BLOOD UREA NITROGEN 9 mg/dL (7-20); BUN/CREATININE RATIO 11 (6-20); CALCIUM 8.7 mg/dL (8.5-10.1); CARBON DIOXIDE 33 mmol/L (21-32); CHLORIDE 101 mmol/L (98-107); CREATININE 0.8 mg/dL (0.6-1.0); GFR 73.4; GLUCOSE 115 mg/dL (70-99); POTASSIUM 4.3 mmol/L (3.5-5.1); SODIUM 140 mmol/L (136-145); TOTAL BILIRUBIN 0.3 mg/dL (0.2-1.0); TOTAL PROTEIN 6.3 g/dL (6.4-8.2)
[2018-08-17 08:24] LABS: VAL ACID 64 mcg/mL (50-100)
[2018-08-17 16:51] VITALS: BP 119/78
[2018-08-17] MEDS: traZODone 100 MG TABLET. PO SCH (21:23)
[2018-08-17] MEDS: INSULIN GLARGINE 300 UNITS/3 ML INSULN.PEN. SQ SCH (21:28)
--- NOTE | 2018-08-17 22:51 | PDOC ---
Exam Note: Johnnie Note: Please also refer to the separate dictated note~for this date of service dictated separately.~Patient seen individually. Discussed the patient with Nursing staff reviewed the chart.~Reviewed interim history and current functioning. Reviewed vital signs,~Labs/ Radiology~and current medications noted below. Continue current treatment with the changes noted in the dictated addendum note Assessment: Vital Signs: Vital Signs Date Time Temp Pulse Resp B/P (MAP) Pulse Ox O2 Delivery O2 Flow Rate FiO2 08/17/18 17:29 76 119/78 08/17/18 16:51 97.8 18 97 08/17/18 05:46 Room Air I&O Intake and Output 08/17/18 07:01 Intake Total 1640 ml Balance 1640 ml Intake Oral 1640 ml Labs: Laboratory Tests Test 08/17/18 07:24 08/17/18 07:43 08/17/18 11:13 08/17/18 16:51 Glucose (Fingerstick) 103 mg/dL (70-99) H 140 mg/dL (70-99) H 150 mg/dL (70-99) H White Blood Count 7.0 x10^3/uL (4.0-11.0) Red Blood Count 3.99 x10^6/uL (3.50-5.40) Hemoglobin 12.5 g/dL (12.0-15.5) Hematocrit 38.7 % (36.0-47.0) Mean Corpuscular Volume 97 fL (79-100) Mean Corpuscular Hemoglobin 31 pg (25-35) Mean Corpuscular Hemoglobin Concent 32 g/dL (31-37) Red Cell Distribution Width 18.3 % (11.5-14.5) H Platelet Count 244 x10^3/uL (140-400) Neutrophils (%) (Auto) 49 % (31-73) Lymphocytes (%) (Auto) 33 % (24-48) Monocytes (%) (Auto) 14 % (0-9) H Eosinophils (%) (Auto) 3 % (0-3) Basophils (%) (Auto) 0 % (0-3) Neutrophils # (Auto) 3.4 x10^3uL (1.8-7.7) Lymphocytes # (Auto) 2.3 x10^3/uL (1.0-4.8) Monocytes # (Auto) 1.0 x10^3/uL (0.0-1.1) Eosinophils # (Auto) 0.2 x10^3/uL (0.0-0.7) Basophils # (Auto) 0.0 x10^3/uL (0.0-0.2) Sodium Level 140 mmol/L (136-145) Potassium Level 4.3 mmol/L (3.5-5.1) Chloride Level 101 mmol/L (98-107) Carbon Dioxide Level 33 mmol/L (21-32) H Anion Gap 6 (6-14) Blood Urea Nitrogen 9 mg/dL (7-20) Creatinine 0.8 mg/dL (0.6-1.0) Estimated GFR (Cockcroft-Gault) 73.4 BUN/Creatinine Ratio 11 (6-20) Glucose Level 115 mg/dL (70-99) H Calcium Level 8.7 mg/dL (8.5-10.1) Total Bilirubin 0.3 mg/dL (0.2-1.0) Aspartate Amino Transferase (AST) 13 U/L (15-37) L Alanine Aminotransferase (ALT) 19 U/L (14-59) Alkaline Phosphatase 78 U/L (46-116) Total Protein 6.3 g/dL (6.4-8.2) L Albumin 2.6 g/dL (3.4-5.0) L Albumin/Globulin Ratio 0.7 (1.0-1.7) L Valproic Acid Level 64 mcg/mL (50-100) Valproic Acid Last Dose Date 08/16/2018 Valproic Acid Last Dose Time 1700 Test 08/17/18 19:06 Glucose (Fingerstick) 167 mg/dL (70-99) H Current Medications: Meds: Current Medications Acetaminophen (Tylenol) 650 mg PRN Q6HRS PRN PO PAIN / TEMP; Start 08/11/18 at 21:00 Multi-Ingredient Ointment (Analgesic [place]) 1 yaima PRN QID PRN TP MUSCLE PAIN; Start 08/11/18 at 21:00 Al Hydroxide/Mg Hydroxide (Mylanta Plus Xs) 15 ml PRN AFTMEALHC PRN PO DYSPEPSIA; Start 08/11/18 at 21:00 Magnesium Hydroxide (Milk Of Magnesia) 2,400 mg PRN QHS PRN PO CONSTIPATION; Start 08/11/18 at 21:00 Alprazolam (Xanax) 0.5 mg PRN Q6HRS PRN PO ANXIETY / AGITATION Last administered on 08/15/18at 20:18; Start 08/11/18 at 22:30 Divalproex Sodium (Depakote Sprinkles) 250 mg BIDWMEALS PO Last administered on 08/13/18at 18:08; Start 08/12/18 at 08:00; Stop 08/13/18 at 20:26; Status DC Duloxetine HCl (Cymbalta) 60 mg BIDWMEALS PO Last administered on 08/13/18at 18 :08; Start 08/12/18 at 08:00; Stop 08/13/18 at 20:26; Status DC Risperidone (RisperDAL) 2 mg BIDWMEALS PO Last administered on 08/14/18at 17:45 ; Start 08/12/18 at 08:00; Stop 08/14/18 at 18:45; Status DC Trazodone HCl (Desyrel) 100 mg HS PO Last administered on 08/17/18at 21:23; Start 08/11/18 at 22:30 Ascorbic Acid (Vitamin C) 500 mg BIDWMEALS PO Last administered on 08/17/18at 17:29; Start 08/12/18 at 08:00 Calcium Carbonate/ Glycine (Tums) 500 mg PRN Q6HRS PRN PO INDIGESTION; Start 08/11/18 at 22:15 Vitamin D (Vitamin D3) 2,000 unit DAILY PO Last administered on 08/17/18at 08: 06; Start 08/12/18 at 09:00 Diclofenac Sodium (Voltaren) 1 yaima QID TP Last administered on 08/17/18at 21:24 ; Start 08/12/18 at 09:00 Guaifenesin (Mucinex Er) 600 mg BIDWMEALS PO Last administered on 08/17/18at 17 :29; Start 08/12/18 at 08:00 Acetaminophen/ Hydrocodone Bitart (Lortab 5/325) 1 tab PRN Q6HRS PRN PO PAIN; Start 08/11/18 at 22:15 Levothyroxine Sodium (Synthroid) 100 mcg DAILY06 PO Last administered on at 06:19; Start 08/12/18 at 06:00 Lisinopril (Prinivil) 10 mg DAILY PO Last administered on 08/17/18 08:07; Start 08/12/18 at 09:00 Nitroglycerin (Nitrostat) 0.4 mg PRN Q5MIN PRN SL CHEST PAIN; Start 08/11/18 at 22:15 Nystatin (Nystop) 1 yaima BID TP Last administered on 08/17/18 21:00; Start at 09:00 Allopurinol (Zyloprim) 100 mg DAILY PO Last administered on 08/17/18 08:08; Start 08/12/18 at 09:00 Carvedilol (Coreg) 12.5 mg BIDWMEALS PO Last administered on 08/17/18 17:29; Start 08/12/18 at 08:00 Folic Acid (Folic Acid) 1 mg DAILY PO Last administered on 08/17/18 08:07; Start 08/12/18 at 09:00 Furosemide (Lasix) 40 mg DAILY PO Last administered on 08/17/18at 08:08; Start 08/12/18 at 09:00 Insulin Human Lispro (HumaLOG) 5 units TIDWMEALS SQ Last administered on 17:31; Start 08/12/18 at 08:00 Insulin Glargine (Lantus) 10 units QHS SQ Last administered on 08/17/18 21:28 ; Start 08/11/18 at 23:00 Loperamide HCl (Imodium) 2 mg PRN Q6HRS PRN PO DIARRHEA; Start 08/11/18 at 22: 45 Non-Formulary Medication (Magnesium Hydroxide (Milk Of Magnesia)) 2,400 mg PRN DAILY PRN PO CONSTIPATION; Start 08/11/18 at 22:15; Status UNV Metformin HCl (Glucophage) 1,000 mg BIDWMEALS PO Last administered on at 17:28; Start 08/12/18 at 08:00 Methotrexate (Rheumatrex) 15 mg WEEKLY PO ; Start 08/18/18 at 09:00 Multivitamins/ Calcium (Thera-M Plus) 1 tab DAILY PO Last administered on 08/17at 08:06; Start 08/12/18 at 09:00 Glucose (Insta-Glucose) 15 gm PRN Q15MIN PRN PO LOW BLOOD SUGAR; Start at 08:15 Divalproex Sodium (Depakote Sprinkles) 500 mg BIDWMEALS PO ; Start 08/13/18 at 20:27; Stop 08/13/18 at 20:36; Status DC Duloxetine HCl (Cymbalta) 60 mg DAILY PO Last administered on 08/17/18at 08:08 ; Start 08/14/18 at 09:00 Divalproex Sodium (Depakote Sprinkles) 500 mg BIDWMEALS PO Last administered on 08/17/18at 17:28; Start 08/14/18 at 08:00 Risperidone (RisperDAL) 1.5 mg DAILY PO ; Start 08/14/18 at 19:00; Stop at 19:00; Status DC Risperidone (RisperDAL) 2 mg HS PO Last administered on 08/16/18at 18:51; Start 08/14/18 at 21:00; Stop 08/17/18 at 18:30; Status DC Risperidone (RisperDAL) 1.5 mg HS PO ; Start 08/18/18 at 21:00; Stop 08/18/18 at 21:00; Status DC Risperidone (RisperDAL) 1.5 mg DAILY PO Last administered on 08/17/18at 08:08; Start 08/15/18 at 09:00; Stop 08/17/18 at 18:30; Status DC Amantadine HCl (Symmetrel) 100 mg DAILY PO Last administered on 08/17/18at 08: 13; Start 08/17/18 at 09:00 Risperidone (RisperDAL) 1.5 mg BID PO Last administered on 08/17/18at 21:29; Start 08/17/18 at 21:00 Active Scripts Active Reported Xanax (Alprazolam) 0.5 Mg Tablet 0.5 Mg PO PRN Q6HRS PRN Hydrocodone-Apap 5-325 (Hydrocodone Bit/Acetaminophen) 1 Each Tablet 1 Tab PO PRN Q6HRS PRN Voltaren (Diclofenac Sodium) 100 Gm Gel..gram. 4 Gm TP QID Nystatin 15 Gm Powder 1 Yaima TP BID Tums (Calcium Carbonate) 200 Mg Tab.chew 2 Tab PO PRN Q6HRS PRN Nitrostat (Nitroglycerin) 0.4 Mg Tab.subl 0.4 Mg SL PRN Q5MIN PRN Milk Of Magnesia (Magnesium Hydroxide) 2,400 Mg/10 Ml Oral.susp 2,400 Mg PO PRN DAILY PRN Loperamide (Loperamide Hcl) 2 Mg Tablet 2 Mg PO PRN Q6HRS PRN Vitamin C (Ascorbic Acid) 500 Mg Tablet 500 Mg PO BIDWMEALS Risperdal (Risperidone) 2 Mg Tablet 2 Mg PO BIDWMEALS Mucinex (Guaifenesin) 600 Mg Tablet.er 600 Mg PO BIDWMEALS Metformin Hcl 1,000 Mg Tablet 1,000 Mg PO BIDWMEALS Cymbalta (Duloxetine Hcl) 60 Mg Capsule.dr 60 Mg PO BIDWMEALS Depakote Sprinkle (Divalproex Sodium) 125 Mg Cap.sprink 250 Mg PO BIDWMEALS Coreg (Carvedilol) 12.5 Mg Tablet 12.5 Mg PO BIDWMEALS Vitamin D3 (Cholecalciferol (Vitamin D3)) 1,000 Unit Tablet 2,000 Unit PO DAILY Trazodone Hcl 100 Mg Tablet 100 Mg PO HS Multivitamins (Multivitamin) 1 Each Tablet 1 Tab PO DAILY Methotrexate (Methotrexate Sodium) 2.5 Mg Tablet 15 Mg PO WEEKLY Lisinopril 10 Mg Tablet 10 Mg PO DAILY Levothyroxine Sodium 100 Mcg Tablet 100 Mcg PO DAILYAC Lasix (Furosemide) 40 Mg Tablet 40 Mg PO DAILY Folic Acid 1 Mg Tablet 1 Mg PO DAILY Allopurinol 100 Mg Tablet 100 Mg PO DAILY Novolog (Insulin Aspart) 100 Unit/1 Ml Vial 5 Unit SQ TIDWMEALS Levemir (Insulin Detemir) 100 Unit/1 Ml Vial 10 Unit SQ HS I have reviewed the current psychotropics carefully including drug interactions. Risk benefit ratio favors no change other than as noted in my dictated progress note. Diagnosis: Problems: (1) Anxiety disorder (2) Major depressive disorder, recurrent episode (3) Impulse control disorder (4) Dementia in Alzheimer's disease with delusions (5) Dementia in Alzheimer's disease with depression (6) Dementia, vascular, with delusions (7) Dementia, vascular, with depression KAITLIN DREW MD Aug 17, 2018 22:51
--- NOTE | 2018-08-17 23:21 | PN ---
DATE: 08/16/2018 PSYCHIATRIC PROGRESS NOTE This late entry 08/16/2018 covers elements not covered in my initial note. SUBJECTIVE: I met with the patient in the evening. The patient slept 5-3/4 hours previous night. She was quite agitated the previous evening and reportedly had "fit" and sat in the hallway per nursing report. During the day on 08/16/2018, she has been more appropriate. She ate 3 bowls of clam chowder that the nursing staff had made for [employer]. We have contacted the retirement. They are unaware of any past psychiatric hospitalizations, but we will send a release for [place] in case she has had a psych hospitalization there. She was started on Symmetrel for tremors by Dr. Solomon, Neurologist. 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 No CV, , GI, eye system symptoms on review. Reliability varies. MENTAL STATUS EXAM: Oriented to herself, situations. Speech as above. Abstraction fair. Computation difficult to assess. Mood and affect, intermittently labile, still somewhat depressed, paranoid, but less so than before. LABORATORY DATA: Reviewed. IMPRESSION: Unchanged from initial note. PLAN: No change from initial note, but we will await a valproic acid level, then adjust Depakote to reach therapeutic level. MAN Vanesa DREW MD DR: STEFAN/satya JOB#: [id number] / [id number]
[2018-08-18 05:54] VITALS: BP 100/60
[2018-08-18] MEDS: LEVOTHYROXINE 100 MCG TABLET PO SCH (06:11)
[2018-08-18] MEDS: INSULIN LISPRO 300 UNITS/3 ML INSULN.PEN. SQ SCH ×3 (08:00→17:00)
[2018-08-18] MEDS: DICLOFENAC SODIUM 1% TOPICAL GEL 100GM TUBE. TP SCH ×5 (09:00→21:00)
[2018-08-18] MEDS: DIVALPROEX 125 MG CAP.SPRINK PO SCH ×2 (12:02→17:38)
[2018-08-18] MEDS: DULoxetine HCL 60 MG CAPSULE.DR PO SCH (12:02)
[2018-08-18] MEDS: metFORMIN 500 MG TABLET PO SCH ×2 (12:03→17:37)
[2018-08-18] MEDS: CHOLECALCIFEROL (VITAMIN D3) 1,000 UNIT TABLET PO SCH (12:03)
[2018-08-18] MEDS: MULTIVITAMIN with MINERAL TABLET. PO SCH (12:04)
[2018-08-18] MEDS: CARVEDILOL 12.5 MG TABLET PO SCH ×2 (12:04→17:37)
[2018-08-18] MEDS: FOLIC ACID 1 MG TABLET PO SCH (12:05)
[2018-08-18] MEDS: risperiDONE 1 MG TABLET. PO SCH ×2 (12:05→20:01)
[2018-08-18] MEDS: ASCORBIC ACID 500 MG TABLET PO SCH ×2 (12:05→17:37)
[2018-08-18] MEDS: LISINOPRIL 10 MG TABLET PO SCH (12:06)
[2018-08-18] MEDS: ALLOPURINOL 100 MG TABLET. PO SCH (12:07)
[2018-08-18] MEDS: NYSTATIN TOPICAL POWDER 15GM BOTTLE. TP SCH ×2 (12:07→20:02)
[2018-08-18] MEDS: FUROSEMIDE 40 MG TABLET PO SCH (12:07)
[2018-08-18] MEDS: AMANTADINE HCL 100 MG CAPSULE PO SCH (12:11)
[2018-08-18] MEDS: METHOTREXATE SODIUM 2.5 MG TABLET PO SCH (12:12)
[2018-08-18 16:13] VITALS: BP 129/57
[2018-08-18] MEDS: traZODone 100 MG TABLET. PO SCH (20:02)
[2018-08-18] MEDS: INSULIN GLARGINE 300 UNITS/3 ML INSULN.PEN. SQ SCH (20:12)
[2018-08-18] MEDS ORDERED: risperiDONE 1 MG TABLET. PO SCH (21:00)
--- NOTE | 2018-08-18 22:48 | PDOC ---
Exam Note: Johnnie Note: Please also refer to the separate dictated note~for this date of service dictated separately.~Patient seen individually. Discussed the patient with Nursing staff reviewed the chart.~Reviewed interim history and current functioning. Reviewed vital signs,~Labs/ Radiology~and current medications noted below. Continue current treatment with the changes noted in the dictated addendum note Assessment: Vital Signs: Vital Signs Date Time Temp Pulse Resp B/P (MAP) Pulse Ox O2 Delivery O2 Flow Rate FiO2 08/18/18 17:37 95 129/57 08/18/18 16:13 98.0 22 95 08/17/18 05:46 Room Air I&O Intake and Output 08/18/18 07:01 Intake Total 960 ml Balance 960 ml Intake Oral 960 ml # Bowel Movements 1 Labs: Laboratory Tests Test 08/18/18 07:31 08/18/18 12:14 08/18/18 16:57 08/18/18 19:17 Glucose (Fingerstick) 104 mg/dL (70-99) H 147 mg/dL (70-99) H 80 mg/dL (70-99) 178 mg/dL (70-99) H Current Medications: Meds: Current Medications Acetaminophen (Tylenol) 650 mg PRN Q6HRS PRN PO PAIN / TEMP; Start 08/11/18 at 21:00 Multi-Ingredient Ointment (Analgesic [place]) 1 yaima PRN QID PRN TP MUSCLE PAIN; Start 08/11/18 at 21:00 Al Hydroxide/Mg Hydroxide (Mylanta Plus Xs) 15 ml PRN AFTMEALHC PRN PO DYSPEPSIA; Start 08/11/18 at 21:00 Magnesium Hydroxide (Milk Of Magnesia) 2,400 mg PRN QHS PRN PO CONSTIPATION; Start 08/11/18 at 21:00 Alprazolam (Xanax) 0.5 mg PRN Q6HRS PRN PO ANXIETY / AGITATION Last administered on 08/15/18at 20:18; Start 08/11/18 at 22:30 Divalproex Sodium (Depakote Sprinkles) 250 mg BIDWMEALS PO Last administered on 08/13/18at 18:08; Start 08/12/18 at 08:00; Stop 08/13/18 at 20:26; Status DC Duloxetine HCl (Cymbalta) 60 mg BIDWMEALS PO Last administered on 08/13/18at 18 :08; Start 08/12/18 at 08:00; Stop 08/13/18 at 20:26; Status DC Risperidone (RisperDAL) 2 mg BIDWMEALS PO Last administered on 08/14/18at 17:45 ; Start 08/12/18 at 08:00; Stop 08/14/18 at 18:45; Status DC Trazodone HCl (Desyrel) 100 mg HS PO Last administered on 08/18/18at 20:02; Start 08/11/18 at 22:30 Ascorbic Acid (Vitamin C) 500 mg BIDWMEALS PO Last administered on 08/18/18at 17:37; Start 08/12/18 at 08:00 Calcium Carbonate/ Glycine (Tums) 500 mg PRN Q6HRS PRN PO INDIGESTION; Start 08/11/18 at 22:15 Vitamin D (Vitamin D3) 2,000 unit DAILY PO Last administered on 08/18/18at 12: 03; Start 08/12/18 at 09:00 Diclofenac Sodium (Voltaren) 1 yaima QID TP Last administered on 08/18/18at 17:39 ; Start 08/12/18 at 09:00 Guaifenesin (Mucinex Er) 600 mg BIDWMEALS PO Last administered on 08/18/18at 17 :37; Start 08/12/18 at 08:00 Acetaminophen/ Hydrocodone Bitart (Lortab 5/325) 1 tab PRN Q6HRS PRN PO PAIN; Start 08/11/18 at 22:15 Levothyroxine Sodium (Synthroid) 100 mcg DAILY06 PO Last administered on at 06:11; Start 08/12/18 at 06:00 Lisinopril (Prinivil) 10 mg DAILY PO Last administered on 08/18/18at 12:06; Start 08/12/18 at 09:00 Nitroglycerin (Nitrostat) 0.4 mg PRN Q5MIN PRN SL CHEST PAIN; Start 08/11/18 at 22:15 Nystatin (Nystop) 1 yaima BID TP Last administered on 08/18/18at 20:02; Start at 09:00 Allopurinol (Zyloprim) 100 mg DAILY PO Last administered on 08/18/18 12:07; Start 08/12/18 at 09:00 Carvedilol (Coreg) 12.5 mg BIDWMEALS PO Last administered on 08/18/18at 17:37; Start 08/12/18 at 08:00 Folic Acid (Folic Acid) 1 mg DAILY PO Last administered on 08/18/18 12:05; Start 08/12/18 at 09:00 Furosemide (Lasix) 40 mg DAILY PO Last administered on 08/18/18 12:07; Start 08/12/18 at 09:00 Insulin Human Lispro (HumaLOG) 5 units TIDWMEALS SQ Last administered on 12:32; Start 08/12/18 at 08:00 Insulin Glargine (Lantus) 10 units QHS SQ Last administered on 08/18/18at 20:12 ; Start 08/11/18 at 23:00 Loperamide HCl (Imodium) 2 mg PRN Q6HRS PRN PO DIARRHEA; Start 08/11/18 at 22: 45 Non-Formulary Medication (Magnesium Hydroxide (Milk Of Magnesia)) 2,400 mg PRN DAILY PRN PO CONSTIPATION; Start 08/11/18 at 22:15; Status UNV Metformin HCl (Glucophage) 1,000 mg BIDWMEALS PO Last administered on 17:37; Start 08/12/18 at 08:00 Methotrexate (Rheumatrex) 15 mg WEEKLY PO Last administered on 08/18/18at 12:12 ; Start 08/18/18 at 09:00 Multivitamins/ Calcium (Thera-M Plus) 1 tab DAILY PO Last administered on 08/18at 12:04; Start 08/12/18 at 09:00 Glucose (Insta-Glucose) 15 gm PRN Q15MIN PRN PO LOW BLOOD SUGAR; Start at 08:15 Divalproex Sodium (Depakote Sprinkles) 500 mg BIDWMEALS PO ; Start 08/13/18 at 20:27; Stop 08/13/18 at 20:36; Status DC Duloxetine HCl (Cymbalta) 60 mg DAILY PO Last administered on 08/18/18 12:02 ; Start 08/14/18 at 09:00 Divalproex Sodium (Depakote Sprinkles) 500 mg BIDWMEALS PO Last administered on 08/18/18at 17:38; Start 08/14/18 at 08:00 Risperidone (RisperDAL) 1.5 mg DAILY PO ; Start 08/14/18 at 19:00; Stop at 19:00; Status DC Risperidone (RisperDAL) 2 mg HS PO Last administered on 08/16/18at 18:51; Start 08/14/18 at 21:00; Stop 08/17/18 at 18:30; Status DC Risperidone (RisperDAL) 1.5 mg HS PO ; Start 08/18/18 at 21:00; Stop 08/18/18 at 21:00; Status DC Risperidone (RisperDAL) 1.5 mg DAILY PO Last administered on 08/17/18at 08:08; Start 08/15/18 at 09:00; Stop 08/17/18 at 18:30; Status DC Amantadine HCl (Symmetrel) 100 mg DAILY PO Last administered on 08/18/18at 12: 11; Start 08/17/18 at 09:00 Risperidone (RisperDAL) 1.5 mg BID PO Last administered on 08/18/18at 20:01; Start 08/17/18 at 21:00 Active Scripts Active Reported Xanax (Alprazolam) 0.5 Mg Tablet 0.5 Mg PO PRN Q6HRS PRN Hydrocodone-Apap 5-325 (Hydrocodone Bit/Acetaminophen) 1 Each Tablet 1 Tab PO PRN Q6HRS PRN Voltaren (Diclofenac Sodium) 100 Gm Gel..gram. 4 Gm TP QID Nystatin 15 Gm Powder 1 Yaima TP BID Tums (Calcium Carbonate) 200 Mg Tab.chew 2 Tab PO PRN Q6HRS PRN Nitrostat (Nitroglycerin) 0.4 Mg Tab.subl 0.4 Mg SL PRN Q5MIN PRN Milk Of Magnesia (Magnesium Hydroxide) 2,400 Mg/10 Ml Oral.susp 2,400 Mg PO PRN DAILY PRN Loperamide (Loperamide Hcl) 2 Mg Tablet 2 Mg PO PRN Q6HRS PRN Vitamin C (Ascorbic Acid) 500 Mg Tablet 500 Mg PO BIDWMEALS Risperdal (Risperidone) 2 Mg Tablet 2 Mg PO BIDWMEALS Mucinex (Guaifenesin) 600 Mg Tablet.er 600 Mg PO BIDWMEALS Metformin Hcl 1,000 Mg Tablet 1,000 Mg PO BIDWMEALS Cymbalta (Duloxetine Hcl) 60 Mg Capsule.dr 60 Mg PO BIDWMEALS Depakote Sprinkle (Divalproex Sodium) 125 Mg Cap.sprink 250 Mg PO BIDWMEALS Coreg (Carvedilol) 12.5 Mg Tablet 12.5 Mg PO BIDWMEALS Vitamin D3 (Cholecalciferol (Vitamin D3)) 1,000 Unit Tablet 2,000 Unit PO DAILY Trazodone Hcl 100 Mg Tablet 100 Mg PO HS Multivitamins (Multivitamin) 1 Each Tablet 1 Tab PO DAILY Methotrexate (Methotrexate Sodium) 2.5 Mg Tablet 15 Mg PO WEEKLY Lisinopril 10 Mg Tablet 10 Mg PO DAILY Levothyroxine Sodium 100 Mcg Tablet 100 Mcg PO DAILYAC Lasix (Furosemide) 40 Mg Tablet 40 Mg PO DAILY Folic Acid 1 Mg Tablet 1 Mg PO DAILY Allopurinol 100 Mg Tablet 100 Mg PO DAILY Novolog (Insulin Aspart) 100 Unit/1 Ml Vial 5 Unit SQ TIDWMEALS Levemir (Insulin Detemir) 100 Unit/1 Ml Vial 10 Unit SQ HS I have reviewed the current psychotropics carefully including drug interactions. Risk benefit ratio favors no change other than as noted in my dictated progress note. Diagnosis: Problems: (1) Anxiety disorder (2) Major depressive disorder, recurrent episode (3) Impulse control disorder (4) Dementia in Alzheimer's disease with delusions (5) Dementia in Alzheimer's disease with depression (6) Dementia, vascular, with delusions (7) Dementia, vascular, with depression KAITLIN DREW MD Aug 18, 2018 22:48
[2018-08-19] MEDS: LEVOTHYROXINE 100 MCG TABLET PO SCH (06:07)
[2018-08-19 06:08] VITALS: BP 99/61
[2018-08-19] MEDS: INSULIN LISPRO 300 UNITS/3 ML INSULN.PEN. SQ SCH ×3 (08:00→17:32)
[2018-08-19 08:03] LABS: VAL ACID 71 mcg/mL (50-100)
--- NOTE | 2018-08-19 08:11 | PDOC ---
Exam Note: Johnnie Note: S/O: This is a late entry of 08/17/2018. This note covers elements not covered in my initial note. Met with the patient in the evening. The patient slept six hours previous night. He has been compliant with medications, agitated with vital signs. Valproic acid level 64 and we will repeat valproic acid level on Wednesday08/19/2018. ROS: Extremely hard of hearing. Unable to speak much, communication is non- verbal. No CV, GI/, pulmonary, eye, ENT system symptoms on review. Reliability poor. MSE: Oriented to herself. Insight and judgment, recent and remote memory, attention and concentration, fund of knowledge poor consistent with her diagnosis. Imp: Bipolar I disorder mixed with psychotic features. Anxiety disorder unspecified. Rest as above. Major neurocognitive disorder possibly Alzheimer, vascular with delusion. Plan: The patient does not appear overtly psychotic. Behaviorally, she appears stable. She is on Risperdal 2 mg b.i.d., which is rather high dosage. Risk-benefit favors reducing to 1.5 mg twice a day. Continue rest unchanged. Assessment: Vital Signs: Vital Signs Date Time Temp Pulse Resp B/P (MAP) Pulse Ox O2 Delivery O2 Flow Rate FiO2 08/19/18 06:08 97.0 72 20 99/61 (74) 100 08/17/18 05:46 Room Air I&O Intake and Output 08/19/18 07:01 Intake Total 1320 ml Balance 1320 ml Intake Oral 1320 ml Labs: Laboratory Tests Test 08/18/18 12:14 08/18/18 16:57 08/18/18 19:17 08/19/18 06:55 Glucose (Fingerstick) 147 mg/dL (70-99) H 80 mg/dL (70-99) 178 mg/dL (70-99) H Valproic Acid Level 71 mcg/mL (50-100) Valproic Acid Last Dose Date 08/18/18 Valproic Acid Last Dose Time 2100 Test 08/19/18 07:11 Glucose (Fingerstick) 93 mg/dL (70-99) Current Medications: Meds: Current Medications Acetaminophen (Tylenol) 650 mg PRN Q6HRS PRN PO PAIN / TEMP; Start 08/11/18 at 21:00 Multi-Ingredient Ointment (Analgesic [place]) 1 yaima PRN QID PRN TP MUSCLE PAIN; Start 08/11/18 at 21:00 Al Hydroxide/Mg Hydroxide (Mylanta Plus Xs) 15 ml PRN AFTMEALHC PRN PO DYSPEPSIA; Start 08/11/18 at 21:00 Magnesium Hydroxide (Milk Of Magnesia) 2,400 mg PRN QHS PRN PO CONSTIPATION; Start 08/11/18 at 21:00 Alprazolam (Xanax) 0.5 mg PRN Q6HRS PRN PO ANXIETY / AGITATION Last administered on 08/15/18at 20:18; Start 08/11/18 at 22:30 Divalproex Sodium (Depakote Sprinkles) 250 mg BIDWMEALS PO Last administered on 08/13/18at 18:08; Start 08/12/18 at 08:00; Stop 08/13/18 at 20:26; Status DC Duloxetine HCl (Cymbalta) 60 mg BIDWMEALS PO Last administered on 08/13/18at 18 :08; Start 08/12/18 at 08:00; Stop 08/13/18 at 20:26; Status DC Risperidone (RisperDAL) 2 mg BIDWMEALS PO Last administered on 08/14/18at 17:45 ; Start 08/12/18 at 08:00; Stop 08/14/18 at 18:45; Status DC Trazodone HCl (Desyrel) 100 mg HS PO Last administered on 08/18/18at 20:02; Start 08/11/18 at 22:30 Ascorbic Acid (Vitamin C) 500 mg BIDWMEALS PO Last administered on 08/18/18at 17:37; Start 08/12/18 at 08:00 Calcium Carbonate/ Glycine (Tums) 500 mg PRN Q6HRS PRN PO INDIGESTION; Start 08/11/18 at 22:15 Vitamin D (Vitamin D3) 2,000 unit DAILY PO Last administered on 08/18/18at 12: 03; Start 08/12/18 at 09:00 Diclofenac Sodium (Voltaren) 1 yaima QID TP Last administered on 08/18/18at 17:39 ; Start 08/12/18 at 09:00 Guaifenesin (Mucinex Er) 600 mg BIDWMEALS PO Last administered on 08/18/18at 17 :37; Start 08/12/18 at 08:00 Acetaminophen/ Hydrocodone Bitart (Lortab 5/325) 1 tab PRN Q6HRS PRN PO PAIN; Start 08/11/18 at 22:15 Levothyroxine Sodium (Synthroid) 100 mcg DAILY06 PO Last administered on 06:07; Start 08/12/18 at 06:00 Lisinopril (Prinivil) 10 mg DAILY PO Last administered on 08/18/18at 12:06; Start 08/12/18 at 09:00 Nitroglycerin (Nitrostat) 0.4 mg PRN Q5MIN PRN SL CHEST PAIN; Start 08/11/18 at 22:15 Nystatin (Nystop) 1 yaima BID TP Last administered on 08/18/18 20:02; Start at 09:00 Allopurinol (Zyloprim) 100 mg DAILY PO Last administered on 08/18/18 12:07; Start 08/12/18 at 09:00 Carvedilol (Coreg) 12.5 mg BIDWMEALS PO Last administered on 08/18/18 17:37; Start 08/12/18 at 08:00 Folic Acid (Folic Acid) 1 mg DAILY PO Last administered on 08/18/18 12:05; Start 08/12/18 at 09:00 Furosemide (Lasix) 40 mg DAILY PO Last administered on 08/18/18 12:07; Start 08/12/18 at 09:00 Insulin Human Lispro (HumaLOG) 5 units TIDWMEALS SQ Last administered on 12:32; Start 08/12/18 at 08:00 Insulin Glargine (Lantus) 10 units QHS SQ Last administered on 08/18/18 20:12 ; Start 08/11/18 at 23:00 Loperamide HCl (Imodium) 2 mg PRN Q6HRS PRN PO DIARRHEA; Start 08/11/18 at 22: 45 Non-Formulary Medication (Magnesium Hydroxide (Milk Of Magnesia)) 2,400 mg PRN DAILY PRN PO CONSTIPATION; Start 08/11/18 at 22:15; Status UNV Metformin HCl (Glucophage) 1,000 mg BIDWMEALS PO Last administered on 12/27/ 18at 17:37; Start 08/12/18 at 08:00 Methotrexate (Rheumatrex) 15 mg WEEKLY PO Last administered on 08/18/18at 12:12 ; Start 08/18/18 at 09:00 Multivitamins/ Calcium (Thera-M Plus) 1 tab DAILY PO Last administered on 08/18at 12:04; Start 08/12/18 at 09:00 Glucose (Insta-Glucose) 15 gm PRN Q15MIN PRN PO LOW BLOOD SUGAR; Start at 08:15 Divalproex Sodium (Depakote Sprinkles) 500 mg BIDWMEALS PO ; Start 08/13/18 at 20:27; Stop 08/13/18 at 20:36; Status DC Duloxetine HCl (Cymbalta) 60 mg DAILY PO Last administered on 08/18/18at 12:02 ; Start 08/14/18 at 09:00 Divalproex Sodium (Depakote Sprinkles) 500 mg BIDWMEALS PO Last administered on 08/18/18at 17:38; Start 08/14/18 at 08:00 Risperidone (RisperDAL) 1.5 mg DAILY PO ; Start 08/14/18 at 19:00; Stop at 19:00; Status DC Risperidone (RisperDAL) 2 mg HS PO Last administered on 08/16/18at 18:51; Start 08/14/18 at 21:00; Stop 08/17/18 at 18:30; Status DC Risperidone (RisperDAL) 1.5 mg HS PO ; Start 08/18/18 at 21:00; Stop 08/18/18 at 21:00; Status DC Risperidone (RisperDAL) 1.5 mg DAILY PO Last administered on 08/17/18at 08:08; Start 08/15/18 at 09:00; Stop 08/17/18 at 18:30; Status DC Amantadine HCl (Symmetrel) 100 mg DAILY PO Last administered on 08/18/18at 12: 11; Start 08/17/18 at 09:00 Risperidone (RisperDAL) 1.5 mg BID PO Last administered on 08/18/18at 20:01; Start 08/17/18 at 21:00 Active Scripts Active Reported Xanax (Alprazolam) 0.5 Mg Tablet 0.5 Mg PO PRN Q6HRS PRN Hydrocodone-Apap 5-325 (Hydrocodone Bit/Acetaminophen) 1 Each Tablet 1 Tab PO PRN Q6HRS PRN Voltaren (Diclofenac Sodium) 100 Gm Gel..gram. 4 Gm TP QID Nystatin 15 Gm Powder 1 Yaima TP BID Tums (Calcium Carbonate) 200 Mg Tab.chew 2 Tab PO PRN Q6HRS PRN Nitrostat (Nitroglycerin) 0.4 Mg Tab.subl 0.4 Mg SL PRN Q5MIN PRN Milk Of Magnesia (Magnesium Hydroxide) 2,400 Mg/10 Ml Oral.susp 2,400 Mg PO PRN DAILY PRN Loperamide (Loperamide Hcl) 2 Mg Tablet 2 Mg PO PRN Q6HRS PRN Vitamin C (Ascorbic Acid) 500 Mg Tablet 500 Mg PO BIDWMEALS Risperdal (Risperidone) 2 Mg Tablet 2 Mg PO BIDWMEALS Mucinex (Guaifenesin) 600 Mg Tablet.er 600 Mg PO BIDWMEALS Metformin Hcl 1,000 Mg Tablet 1,000 Mg PO BIDWMEALS Cymbalta (Duloxetine Hcl) 60 Mg Capsule.dr 60 Mg PO BIDWMEALS Depakote Sprinkle (Divalproex Sodium) 125 Mg Cap.sprink 250 Mg PO BIDWMEALS Coreg (Carvedilol) 12.5 Mg Tablet 12.5 Mg PO BIDWMEALS Vitamin D3 (Cholecalciferol (Vitamin D3)) 1,000 Unit Tablet 2,000 Unit PO DAILY Trazodone Hcl 100 Mg Tablet 100 Mg PO HS Multivitamins (Multivitamin) 1 Each Tablet 1 Tab PO DAILY Methotrexate (Methotrexate Sodium) 2.5 Mg Tablet 15 Mg PO WEEKLY Lisinopril 10 Mg Tablet 10 Mg PO DAILY Levothyroxine Sodium 100 Mcg Tablet 100 Mcg PO DAILYAC Lasix (Furosemide) 40 Mg Tablet 40 Mg PO DAILY Folic Acid 1 Mg Tablet 1 Mg PO DAILY Allopurinol 100 Mg Tablet 100 Mg PO DAILY Novolog (Insulin Aspart) 100 Unit/1 Ml Vial 5 Unit SQ TIDWMEALS Levemir (Insulin Detemir) 100 Unit/1 Ml Vial 10 Unit SQ HS I have reviewed the current psychotropics carefully including drug interactions. Risk benefit ratio favors no change other than as noted in my dictated progress note. Diagnosis: Problems: (1) Anxiety disorder (2) Major depressive disorder, recurrent episode (3) Impulse control disorder (4) Dementia in Alzheimer's disease with delusions (5) Dementia in Alzheimer's disease with depression (6) Dementia, vascular, with delusions (7) Dementia, vascular, with depression KAITLIN DREW MD Aug 19, 2018 08:11
[2018-08-19] MEDS: FOLIC ACID 1 MG TABLET PO SCH (08:14)
[2018-08-19] MEDS: LISINOPRIL 10 MG TABLET PO SCH (08:14)
[2018-08-19] MEDS: risperiDONE 1 MG TABLET. PO SCH ×2 (08:15→21:04)
[2018-08-19] MEDS: MULTIVITAMIN with MINERAL TABLET. PO SCH (08:15)
[2018-08-19] MEDS: DULoxetine HCL 60 MG CAPSULE.DR PO SCH (08:15)
[2018-08-19] MEDS: metFORMIN 500 MG TABLET PO SCH ×2 (08:15→17:30)
[2018-08-19] MEDS: DIVALPROEX 125 MG CAP.SPRINK PO SCH ×2 (08:15→17:30)
[2018-08-19] MEDS: CARVEDILOL 12.5 MG TABLET PO SCH ×2 (08:16→17:30)
[2018-08-19] MEDS: ASCORBIC ACID 500 MG TABLET PO SCH ×2 (08:16→17:30)
[2018-08-19] MEDS: FUROSEMIDE 40 MG TABLET PO SCH (08:16)
[2018-08-19] MEDS: NYSTATIN TOPICAL POWDER 15GM BOTTLE. TP SCH ×2 (08:16→21:05)
[2018-08-19] MEDS: CHOLECALCIFEROL (VITAMIN D3) 1,000 UNIT TABLET PO SCH (08:16)
[2018-08-19] MEDS: AMANTADINE HCL 100 MG CAPSULE PO SCH (08:17)
[2018-08-19] MEDS: ALLOPURINOL 100 MG TABLET. PO SCH (08:17)
[2018-08-19] MEDS: DICLOFENAC SODIUM 1% TOPICAL GEL 100GM TUBE. TP SCH ×5 (08:18→21:05)
[2018-08-19 16:44] VITALS: BP 125/71
[2018-08-19] MEDS: INSULIN GLARGINE 300 UNITS/3 ML INSULN.PEN. SQ SCH (21:00)
[2018-08-19] MEDS: traZODone 100 MG TABLET. PO SCH (21:04)
--- NOTE | 2018-08-19 21:17 | PN ---
DATE: 08/18/2018 PSYCHIATRIC PROGRESS NOTE This late entry 08/18/2018 covers elements not covered in my initial note. SUBJECTIVE: I met with the patient in the evening. The patient slept 5 hours previous night. She slept until lunchtime, compliant with medication. She gets agitated when nursing staff are checking her blood pressure and using the cuff. We will be checking valproic acid level in the morning of 08/19/2018 and then adjust the Depakote. She is hard of hearing, unable to speak, but no CV, , GI, eye system symptoms on review. MENTAL STATUS EXAM: Oriented to herself, situations. Speech as above, abstraction difficult to assess. Computation difficult to assess. Attention span short. Otherwise, she appears pleasant, smiling as I met with her. No active suicidal or homicidal ideation. No clear psychotic symptoms. LABORATORY DATA: Reviewed. IMPRESSION: Bipolar 1 disorder, mixed with psychotic features; cognitive disorder, unspecified. PLAN: Continue psychotropics from initial note, but we may reduce the Risperdal further in the next day or so if no clear psychotic symptoms noted. MAN Vanesa DREW MD DR: STEFAN/satya JOB#: [id number] / [id number]
--- NOTE | 2018-08-19 22:57 | PDOC ---
Exam Note: Johnnie Note: Please also refer to the separate dictated note~for this date of service dictated separately.~Patient seen individually. Discussed the patient with Nursing staff reviewed the chart.~Reviewed interim history and current functioning. Reviewed vital signs,~Labs/ Radiology~and current medications noted below. Continue current treatment with the changes noted in the dictated addendum note Assessment: Vital Signs: Vital Signs Date Time Temp Pulse Resp B/P (MAP) Pulse Ox O2 Delivery O2 Flow Rate FiO2 08/19/18 17:30 100 125/71 08/19/18 16:44 98.0 20 100 Room Air I&O Intake and Output 08/19/18 07:01 Intake Total 1320 ml Balance 1320 ml Intake Oral 1320 ml Labs: Laboratory Tests Test 08/19/18 06:55 08/19/18 07:11 08/19/18 12:23 08/19/18 16:57 Valproic Acid Level 71 mcg/mL (50-100) Valproic Acid Last Dose Date 08/18/18 Valproic Acid Last Dose Time 2100 Glucose (Fingerstick) 93 mg/dL (70-99) 135 mg/dL (70-99) H 146 mg/dL (70-99) H Test 08/19/18 19:16 Glucose (Fingerstick) 128 mg/dL (70-99) H Current Medications: Meds: Current Medications Acetaminophen (Tylenol) 650 mg PRN Q6HRS PRN PO PAIN / TEMP; Start 08/11/18 at 21:00 Multi-Ingredient Ointment (Analgesic [place]) 1 yaima PRN QID PRN TP MUSCLE PAIN; Start 08/11/18 at 21:00 Al Hydroxide/Mg Hydroxide (Mylanta Plus Xs) 15 ml PRN AFTMEALHC PRN PO DYSPEPSIA; Start 08/11/18 at 21:00 Magnesium Hydroxide (Milk Of Magnesia) 2,400 mg PRN QHS PRN PO CONSTIPATION; Start 08/11/18 at 21:00 Alprazolam (Xanax) 0.5 mg PRN Q6HRS PRN PO ANXIETY / AGITATION Last administered on 08/15/18at 20:18; Start 08/11/18 at 22:30 Divalproex Sodium (Depakote Sprinkles) 250 mg BIDWMEALS PO Last administered on 08/13/18at 18:08; Start 08/12/18 at 08:00; Stop 08/13/18 at 20:26; Status DC Duloxetine HCl (Cymbalta) 60 mg BIDWMEALS PO Last administered on 08/13/18at 18 :08; Start 08/12/18 at 08:00; Stop 08/13/18 at 20:26; Status DC Risperidone (RisperDAL) 2 mg BIDWMEALS PO Last administered on 08/14/18at 17:45 ; Start 08/12/18 at 08:00; Stop 08/14/18 at 18:45; Status DC Trazodone HCl (Desyrel) 100 mg HS PO Last administered on 08/19/18 21:04; Start 08/11/18 at 22:30 Ascorbic Acid (Vitamin C) 500 mg BIDWMEALS PO Last administered on 08/19/18at 17:30; Start 08/12/18 at 08:00 Calcium Carbonate/ Glycine (Tums) 500 mg PRN Q6HRS PRN PO INDIGESTION; Start 08/11/18 at 22:15 Vitamin D (Vitamin D3) 2,000 unit DAILY PO Last administered on 08/19/18 08: 16; Start 08/12/18 at 09:00 Diclofenac Sodium (Voltaren) 1 yaima QID TP Last administered on 08/19/18at 21:05 ; Start 08/12/18 at 09:00 Guaifenesin (Mucinex Er) 600 mg BIDWMEALS PO Last administered on 08/19/18at 17 :30; Start 08/12/18 at 08:00 Acetaminophen/ Hydrocodone Bitart (Lortab 5/325) 1 tab PRN Q6HRS PRN PO PAIN; Start 08/11/18 at 22:15 Levothyroxine Sodium (Synthroid) 100 mcg DAILY06 PO Last administered on at 06:07; Start 08/12/18 at 06:00 Lisinopril (Prinivil) 10 mg DAILY PO Last administered on 08/19/18at 08:14; Start 08/12/18 at 09:00 Nitroglycerin (Nitrostat) 0.4 mg PRN Q5MIN PRN SL CHEST PAIN; Start 08/11/18 at 22:15 Nystatin (Nystop) 1 yaima BID TP Last administered on 08/19/18 21:05; Start at 09:00 Allopurinol (Zyloprim) 100 mg DAILY PO Last administered on 08/19/18 08:17; Start 08/12/18 at 09:00 Carvedilol (Coreg) 12.5 mg BIDWMEALS PO Last administered on 08/19/18 17:30; Start 08/12/18 at 08:00 Folic Acid (Folic Acid) 1 mg DAILY PO Last administered on 08/19/18 08:14; Start 08/12/18 at 09:00 Furosemide (Lasix) 40 mg DAILY PO Last administered on 08/19/18 08:16; Start 08/12/18 at 09:00 Insulin Human Lispro (HumaLOG) 5 units TIDWMEALS SQ Last administered on 17:32; Start 08/12/18 at 08:00 Insulin Glargine (Lantus) 10 units QHS SQ Last administered on 08/18/18at 20:12 ; Start 08/11/18 at 23:00 Loperamide HCl (Imodium) 2 mg PRN Q6HRS PRN PO DIARRHEA; Start 08/11/18 at 22: 45 Non-Formulary Medication (Magnesium Hydroxide (Milk Of Magnesia)) 2,400 mg PRN DAILY PRN PO CONSTIPATION; Start 08/11/18 at 22:15; Status UNV Metformin HCl (Glucophage) 1,000 mg BIDWMEALS PO Last administered on at 17:30; Start 08/12/18 at 08:00 Methotrexate (Rheumatrex) 15 mg WEEKLY PO Last administered on 08/18/18at 12:12 ; Start 08/18/18 at 09:00 Multivitamins/ Calcium (Thera-M Plus) 1 tab DAILY PO Last administered on 08/19at 08:15; Start 08/12/18 at 09:00 Glucose (Insta-Glucose) 15 gm PRN Q15MIN PRN PO LOW BLOOD SUGAR; Start at 08:15 Divalproex Sodium (Depakote Sprinkles) 500 mg BIDWMEALS PO ; Start 08/13/18 at 20:27; Stop 08/13/18 at 20:36; Status DC Duloxetine HCl (Cymbalta) 60 mg DAILY PO Last administered on 08/19/18at 08:15 ; Start 08/14/18 at 09:00 Divalproex Sodium (Depakote Sprinkles) 500 mg BIDWMEALS PO Last administered on 08/19/18at 17:30; Start 08/14/18 at 08:00 Risperidone (RisperDAL) 1.5 mg DAILY PO ; Start 08/14/18 at 19:00; Stop at 19:00; Status DC Risperidone (RisperDAL) 2 mg HS PO Last administered on 08/16/18at 18:51; Start 08/14/18 at 21:00; Stop 08/17/18 at 18:30; Status DC Risperidone (RisperDAL) 1.5 mg HS PO ; Start 08/18/18 at 21:00; Stop 08/18/18 at 21:00; Status DC Risperidone (RisperDAL) 1.5 mg DAILY PO Last administered on 08/17/18at 08:08; Start 08/15/18 at 09:00; Stop 08/17/18 at 18:30; Status DC Amantadine HCl (Symmetrel) 100 mg DAILY PO Last administered on 08/19/18at 08: 17; Start 08/17/18 at 09:00 Risperidone (RisperDAL) 1.5 mg BID PO Last administered on 08/19/18at 08:15; Start 08/17/18 at 21:00; Stop 08/19/18 at 15:58; Status DC Risperidone (RisperDAL) 1 mg BID PO Last administered on 08/19/18at 21:04; Start 08/19/18 at 21:00 Active Scripts Active Reported Xanax (Alprazolam) 0.5 Mg Tablet 0.5 Mg PO PRN Q6HRS PRN Hydrocodone-Apap 5-325 (Hydrocodone Bit/Acetaminophen) 1 Each Tablet 1 Tab PO PRN Q6HRS PRN Voltaren (Diclofenac Sodium) 100 Gm Gel..gram. 4 Gm TP QID Nystatin 15 Gm Powder 1 Yaima TP BID Tums (Calcium Carbonate) 200 Mg Tab.chew 2 Tab PO PRN Q6HRS PRN Nitrostat (Nitroglycerin) 0.4 Mg Tab.subl 0.4 Mg SL PRN Q5MIN PRN Milk Of Magnesia (Magnesium Hydroxide) 2,400 Mg/10 Ml Oral.susp 2,400 Mg PO PRN DAILY PRN Loperamide (Loperamide Hcl) 2 Mg Tablet 2 Mg PO PRN Q6HRS PRN Vitamin C (Ascorbic Acid) 500 Mg Tablet 500 Mg PO BIDWMEALS Risperdal (Risperidone) 2 Mg Tablet 2 Mg PO BIDWMEALS Mucinex (Guaifenesin) 600 Mg Tablet.er 600 Mg PO BIDWMEALS Metformin Hcl 1,000 Mg Tablet 1,000 Mg PO BIDWMEALS Cymbalta (Duloxetine Hcl) 60 Mg Capsule.dr 60 Mg PO BIDWMEALS Depakote Sprinkle (Divalproex Sodium) 125 Mg Cap.sprink 250 Mg PO BIDWMEALS Coreg (Carvedilol) 12.5 Mg Tablet 12.5 Mg PO BIDWMEALS Vitamin D3 (Cholecalciferol (Vitamin D3)) 1,000 Unit Tablet 2,000 Unit PO DAILY Trazodone Hcl 100 Mg Tablet 100 Mg PO HS Multivitamins (Multivitamin) 1 Each Tablet 1 Tab PO DAILY Methotrexate (Methotrexate Sodium) 2.5 Mg Tablet 15 Mg PO WEEKLY Lisinopril 10 Mg Tablet 10 Mg PO DAILY Levothyroxine Sodium 100 Mcg Tablet 100 Mcg PO DAILYAC Lasix (Furosemide) 40 Mg Tablet 40 Mg PO DAILY Folic Acid 1 Mg Tablet 1 Mg PO DAILY Allopurinol 100 Mg Tablet 100 Mg PO DAILY Novolog (Insulin Aspart) 100 Unit/1 Ml Vial 5 Unit SQ TIDWMEALS Levemir (Insulin Detemir) 100 Unit/1 Ml Vial 10 Unit SQ HS I have reviewed the current psychotropics carefully including drug interactions. Risk benefit ratio favors no change other than as noted in my dictated progress note. Diagnosis: Problems: (1) Anxiety disorder (2) Major depressive disorder, recurrent episode (3) Impulse control disorder (4) Dementia in Alzheimer's disease with delusions (5) Dementia in Alzheimer's disease with depression (6) Dementia, vascular, with delusions (7) Dementia, vascular, with depression KAITLIN DREW MD Aug 19, 2018 22:57
[2018-08-20 05:48] VITALS: BP 129/54
[2018-08-20] MEDS: LEVOTHYROXINE 100 MCG TABLET PO SCH (06:15)
[2018-08-20] MEDS: DULoxetine HCL 60 MG CAPSULE.DR PO SCH (08:22)
[2018-08-20] MEDS: DIVALPROEX 125 MG CAP.SPRINK PO SCH ×2 (08:22→17:33)
[2018-08-20] MEDS: MULTIVITAMIN with MINERAL TABLET. PO SCH (08:22)
[2018-08-20] MEDS: CHOLECALCIFEROL (VITAMIN D3) 1,000 UNIT TABLET PO SCH (08:22)
[2018-08-20] MEDS: FOLIC ACID 1 MG TABLET PO SCH (08:23)
[2018-08-20] MEDS: LISINOPRIL 10 MG TABLET PO SCH (08:23)
[2018-08-20] MEDS: CARVEDILOL 12.5 MG TABLET PO SCH ×2 (08:23→17:35)
[2018-08-20] MEDS: ALLOPURINOL 100 MG TABLET. PO SCH (08:23)
[2018-08-20] MEDS: metFORMIN 500 MG TABLET PO SCH ×2 (08:23→17:33)
[2018-08-20] MEDS: NYSTATIN TOPICAL POWDER 15GM BOTTLE. TP SCH ×2 (08:24→20:43)
[2018-08-20] MEDS: DICLOFENAC SODIUM 1% TOPICAL GEL 100GM TUBE. TP SCH ×5 (08:24→20:43)
[2018-08-20] MEDS: FUROSEMIDE 40 MG TABLET PO SCH (08:24)
[2018-08-20] MEDS: AMANTADINE HCL 100 MG CAPSULE PO SCH (08:24)
[2018-08-20] MEDS: risperiDONE 1 MG TABLET. PO SCH ×2 (08:24→20:43)
[2018-08-20] MEDS: ASCORBIC ACID 500 MG TABLET PO SCH ×2 (08:24→17:34)
[2018-08-20] MEDS: INSULIN LISPRO 300 UNITS/3 ML INSULN.PEN. SQ SCH ×3 (08:25→17:39)
[2018-08-20 15:49] VITALS: BP 119/58
[2018-08-20] MEDS: traZODone 100 MG TABLET. PO SCH (20:43)
[2018-08-20] MEDS: INSULIN GLARGINE 300 UNITS/3 ML INSULN.PEN. SQ SCH (20:44)
--- NOTE | 2018-08-20 22:08 | PDOC ---
Exam Note: Johnnie Note: Please also refer to the separate dictated note~for this date of service dictated separately.~Patient seen individually. Discussed the patient with Nursing staff reviewed the chart.~Reviewed interim history and current functioning. Reviewed vital signs,~Labs/ Radiology~and current medications noted below. Continue current treatment with the changes noted in the dictated addendum note Assessment: Vital Signs: Vital Signs Date Time Temp Pulse Resp B/P (MAP) Pulse Ox O2 Delivery O2 Flow Rate FiO2 08/20/18 17:35 84 119/58 08/20/18 15:49 97.2 20 94 Room Air I&O Intake and Output 08/20/18 07:01 Intake Total 840 ml Balance 840 ml Intake Oral 840 ml # Voids 1 # Bowel Movements 1 Labs: Laboratory Tests Test 08/20/18 07:22 08/20/18 11:42 08/20/18 16:37 08/20/18 19:31 Glucose (Fingerstick) 118 mg/dL (70-99) H 134 mg/dL (70-99) H 107 mg/dL (70-99) H 144 mg/dL (70-99) H Current Medications: Meds: Current Medications Acetaminophen (Tylenol) 650 mg PRN Q6HRS PRN PO PAIN / TEMP; Start 08/11/18 at 21:00 Multi-Ingredient Ointment (Analgesic [place]) 1 yaima PRN QID PRN TP MUSCLE PAIN; Start 08/11/18 at 21:00 Al Hydroxide/Mg Hydroxide (Mylanta Plus Xs) 15 ml PRN AFTMEALHC PRN PO DYSPEPSIA; Start 08/11/18 at 21:00 Magnesium Hydroxide (Milk Of Magnesia) 2,400 mg PRN QHS PRN PO CONSTIPATION; Start 08/11/18 at 21:00 Alprazolam (Xanax) 0.5 mg PRN Q6HRS PRN PO ANXIETY / AGITATION Last administered on 08/15/18at 20:18; Start 08/11/18 at 22:30 Divalproex Sodium (Depakote Sprinkles) 250 mg BIDWMEALS PO Last administered on 08/13/18at 18:08; Start 08/12/18 at 08:00; Stop 08/13/18 at 20:26; Status DC Duloxetine HCl (Cymbalta) 60 mg BIDWMEALS PO Last administered on 08/13/18 18 :08; Start 08/12/18 at 08:00; Stop 08/13/18 at 20:26; Status DC Risperidone (RisperDAL) 2 mg BIDWMEALS PO Last administered on 08/14/18 17:45 ; Start 08/12/18 at 08:00; Stop 08/14/18 at 18:45; Status DC Trazodone HCl (Desyrel) 100 mg HS PO Last administered on 08/20/18 20:43; Start 08/11/18 at 22:30 Ascorbic Acid (Vitamin C) 500 mg BIDWMEALS PO Last administered on 08/20/18 17:34; Start 08/12/18 at 08:00 Calcium Carbonate/ Glycine (Tums) 500 mg PRN Q6HRS PRN PO INDIGESTION; Start 08/11/18 at 22:15 Vitamin D (Vitamin D3) 2,000 unit DAILY PO Last administered on 08/20/18 08: 22; Start 08/12/18 at 09:00 Diclofenac Sodium (Voltaren) 1 yaima QID TP Last administered on 08/20/18 20:43 ; Start 08/12/18 at 09:00 Guaifenesin (Mucinex Er) 600 mg BIDWMEALS PO Last administered on 08/20/18 17 :34; Start 08/12/18 at 08:00 Acetaminophen/ Hydrocodone Bitart (Lortab 5/325) 1 tab PRN Q6HRS PRN PO PAIN; Start 08/11/18 at 22:15 Levothyroxine Sodium (Synthroid) 100 mcg DAILY06 PO Last administered on 06:15; Start 08/12/18 at 06:00 Lisinopril (Prinivil) 10 mg DAILY PO Last administered on 08/20/18 08:23; Start 08/12/18 at 09:00 Nitroglycerin (Nitrostat) 0.4 mg PRN Q5MIN PRN SL CHEST PAIN; Start 08/11/18 at 22:15 Nystatin (Nystop) 1 yaima BID TP Last administered on 08/20/18 20:43; Start at 09:00 Allopurinol (Zyloprim) 100 mg DAILY PO Last administered on 08/20/18 08:23; Start 08/12/18 at 09:00 Carvedilol (Coreg) 12.5 mg BIDWMEALS PO Last administered on 08/20/18 17:35; Start 08/12/18 at 08:00 Folic Acid (Folic Acid) 1 mg DAILY PO Last administered on 08/20/18 08:23; Start 08/12/18 at 09:00 Furosemide (Lasix) 40 mg DAILY PO Last administered on 08/20/18 08:24; Start 08/12/18 at 09:00 Insulin Human Lispro (HumaLOG) 5 units TIDWMEALS SQ Last administered on 17:39; Start 08/12/18 at 08:00 Insulin Glargine (Lantus) 10 units QHS SQ Last administered on 08/20/18 20:44 ; Start 08/11/18 at 23:00 Loperamide HCl (Imodium) 2 mg PRN Q6HRS PRN PO DIARRHEA; Start 08/11/18 at 22: 45 Non-Formulary Medication (Magnesium Hydroxide (Milk Of Magnesia)) 2,400 mg PRN DAILY PRN PO CONSTIPATION; Start 08/11/18 at 22:15; Status UNV Metformin HCl (Glucophage) 1,000 mg BIDWMEALS PO Last administered on 17:33; Start 08/12/18 at 08:00 Methotrexate (Rheumatrex) 15 mg WEEKLY PO Last administered on 08/18/18at 12:12 ; Start 08/18/18 at 09:00 Multivitamins/ Calcium (Thera-M Plus) 1 tab DAILY PO Last administered on 08/20 08:22; Start 08/12/18 at 09:00 Glucose (Insta-Glucose) 15 gm PRN Q15MIN PRN PO LOW BLOOD SUGAR; Start at 08:15 Divalproex Sodium (Depakote Sprinkles) 500 mg BIDWMEALS PO ; Start 08/13/18 at 20:27; Stop 08/13/18 at 20:36; Status DC Duloxetine HCl (Cymbalta) 60 mg DAILY PO Last administered on 08/20/18 08:22 ; Start 08/14/18 at 09:00 Divalproex Sodium (Depakote Sprinkles) 500 mg BIDWMEALS PO Last administered on 08/20/18at 17:33; Start 08/14/18 at 08:00 Risperidone (RisperDAL) 1.5 mg DAILY PO ; Start 08/14/18 at 19:00; Stop at 19:00; Status DC Risperidone (RisperDAL) 2 mg HS PO Last administered on 08/16/18at 18:51; Start 08/14/18 at 21:00; Stop 08/17/18 at 18:30; Status DC Risperidone (RisperDAL) 1.5 mg HS PO ; Start 08/18/18 at 21:00; Stop 08/18/18 at 21:00; Status DC Risperidone (RisperDAL) 1.5 mg DAILY PO Last administered on 08/17/18at 08:08; Start 08/15/18 at 09:00; Stop 08/17/18 at 18:30; Status DC Amantadine HCl (Symmetrel) 100 mg DAILY PO Last administered on 08/20/18at 08: 24; Start 08/17/18 at 09:00 Risperidone (RisperDAL) 1.5 mg BID PO Last administered on 08/19/18at 08:15; Start 08/17/18 at 21:00; Stop 08/19/18 at 15:58; Status DC Risperidone (RisperDAL) 1 mg BID PO Last administered on 08/20/18at 20:43; Start 08/19/18 at 21:00 Active Scripts Active Reported Xanax (Alprazolam) 0.5 Mg Tablet 0.5 Mg PO PRN Q6HRS PRN Hydrocodone-Apap 5-325 (Hydrocodone Bit/Acetaminophen) 1 Each Tablet 1 Tab PO PRN Q6HRS PRN Voltaren (Diclofenac Sodium) 100 Gm Gel..gram. 4 Gm TP QID Nystatin 15 Gm Powder 1 Yaima TP BID Tums (Calcium Carbonate) 200 Mg Tab.chew 2 Tab PO PRN Q6HRS PRN Nitrostat (Nitroglycerin) 0.4 Mg Tab.subl 0.4 Mg SL PRN Q5MIN PRN Milk Of Magnesia (Magnesium Hydroxide) 2,400 Mg/10 Ml Oral.susp 2,400 Mg PO PRN DAILY PRN Loperamide (Loperamide Hcl) 2 Mg Tablet 2 Mg PO PRN Q6HRS PRN Vitamin C (Ascorbic Acid) 500 Mg Tablet 500 Mg PO BIDWMEALS Risperdal (Risperidone) 2 Mg Tablet 2 Mg PO BIDWMEALS Mucinex (Guaifenesin) 600 Mg Tablet.er 600 Mg PO BIDWMEALS Metformin Hcl 1,000 Mg Tablet 1,000 Mg PO BIDWMEALS Cymbalta (Duloxetine Hcl) 60 Mg Capsule.dr 60 Mg PO BIDWMEALS Depakote Sprinkle (Divalproex Sodium) 125 Mg Cap.sprink 250 Mg PO BIDWMEALS Coreg (Carvedilol) 12.5 Mg Tablet 12.5 Mg PO BIDWMEALS Vitamin D3 (Cholecalciferol (Vitamin D3)) 1,000 Unit Tablet 2,000 Unit PO DAILY Trazodone Hcl 100 Mg Tablet 100 Mg PO HS Multivitamins (Multivitamin) 1 Each Tablet 1 Tab PO DAILY Methotrexate (Methotrexate Sodium) 2.5 Mg Tablet 15 Mg PO WEEKLY Lisinopril 10 Mg Tablet 10 Mg PO DAILY Levothyroxine Sodium 100 Mcg Tablet 100 Mcg PO DAILYAC Lasix (Furosemide) 40 Mg Tablet 40 Mg PO DAILY Folic Acid 1 Mg Tablet 1 Mg PO DAILY Allopurinol 100 Mg Tablet 100 Mg PO DAILY Novolog (Insulin Aspart) 100 Unit/1 Ml Vial 5 Unit SQ TIDWMEALS Levemir (Insulin Detemir) 100 Unit/1 Ml Vial 10 Unit SQ HS I have reviewed the current psychotropics carefully including drug interactions. Risk benefit ratio favors no change other than as noted in my dictated progress note. Diagnosis: Problems: (1) Anxiety disorder (2) Major depressive disorder, recurrent episode (3) Impulse control disorder (4) Dementia in Alzheimer's disease with delusions (5) Dementia in Alzheimer's disease with depression (6) Dementia, vascular, with delusions (7) Dementia, vascular, with depression KAITLIN DREW MD Aug 20, 2018 22:08
[2018-08-21] MEDS: LEVOTHYROXINE 100 MCG TABLET PO SCH (06:17)
[2018-08-21 06:31] VITALS: BP 90/55
[2018-08-21] MEDS: CARVEDILOL 12.5 MG TABLET PO SCH ×2 (07:58→17:09)
[2018-08-21] MEDS: DIVALPROEX 125 MG CAP.SPRINK PO SCH ×2 (07:59→17:09)
[2018-08-21] MEDS: ASCORBIC ACID 500 MG TABLET PO SCH ×2 (08:00→17:10)
[2018-08-21] MEDS: metFORMIN 500 MG TABLET PO SCH ×2 (08:00→17:10)
[2018-08-21] MEDS: DULoxetine HCL 60 MG CAPSULE.DR PO SCH (08:01)
[2018-08-21] MEDS: FUROSEMIDE 40 MG TABLET PO SCH (08:01)
[2018-08-21] MEDS: FOLIC ACID 1 MG TABLET PO SCH (08:01)
[2018-08-21] MEDS: LISINOPRIL 10 MG TABLET PO SCH (08:01)
[2018-08-21] MEDS: risperiDONE 1 MG TABLET. PO SCH ×2 (08:02→20:02)
[2018-08-21] MEDS: MULTIVITAMIN with MINERAL TABLET. PO SCH (08:02)
[2018-08-21] MEDS: AMANTADINE HCL 100 MG CAPSULE PO SCH (08:02)
[2018-08-21] MEDS: ALLOPURINOL 100 MG TABLET. PO SCH (08:03)
[2018-08-21] MEDS: INSULIN LISPRO 300 UNITS/3 ML INSULN.PEN. SQ SCH ×3 (08:03→17:12)
[2018-08-21] MEDS: DICLOFENAC SODIUM 1% TOPICAL GEL 100GM TUBE. TP SCH ×4 (08:04→20:06)
[2018-08-21] MEDS: NYSTATIN TOPICAL POWDER 15GM BOTTLE. TP SCH ×2 (08:04→20:05)
[2018-08-21] MEDS: CHOLECALCIFEROL (VITAMIN D3) 1,000 UNIT TABLET PO SCH (08:04)
[2018-08-21 16:16] VITALS: BP 109/61
[2018-08-21] MEDS: traZODone 100 MG TABLET. PO SCH (20:02)
[2018-08-21] MEDS: INSULIN GLARGINE 300 UNITS/3 ML INSULN.PEN. SQ SCH (20:05)
[2018-08-21] MEDS: ALPRAZolam 0.5 MG TABLET PO PRN (20:06)
--- NOTE | 2018-08-21 23:18 | PDOC ---
Exam Note: Johnnie Note: Please also refer to the separate dictated note~for this date of service dictated separately.~Patient seen individually. Discussed the patient with Nursing staff reviewed the chart.~Reviewed interim history and current functioning. Reviewed vital signs,~Labs/ Radiology~and current medications noted below. Continue current treatment with the changes noted in the dictated addendum note Assessment: Vital Signs: Vital Signs Date Time Temp Pulse Resp B/P (MAP) Pulse Ox O2 Delivery O2 Flow Rate FiO2 08/21/18 17:09 68 109/61 08/21/18 16:16 97.9 18 98 08/20/18 15:49 Room Air I&O Intake and Output 08/21/18 07:01 Intake Total 1330 ml Balance 1330 ml Intake Oral 1330 ml # Bowel Movements 1 Labs: Laboratory Tests Test 08/21/18 07:34 08/21/18 11:20 08/21/18 16:32 08/21/18 19:07 Glucose (Fingerstick) 116 mg/dL (70-99) H 75 mg/dL (70-99) 99 mg/dL (70-99) 143 mg/dL (70-99) H Current Medications: Meds: Current Medications Acetaminophen (Tylenol) 650 mg PRN Q6HRS PRN PO PAIN / TEMP; Start 08/11/18 at 21:00 Multi-Ingredient Ointment (Analgesic [place]) 1 yaima PRN QID PRN TP MUSCLE PAIN; Start 08/11/18 at 21:00 Al Hydroxide/Mg Hydroxide (Mylanta Plus Xs) 15 ml PRN AFTMEALHC PRN PO DYSPEPSIA; Start 08/11/18 at 21:00 Magnesium Hydroxide (Milk Of Magnesia) 2,400 mg PRN QHS PRN PO CONSTIPATION; Start 08/11/18 at 21:00 Alprazolam (Xanax) 0.5 mg PRN Q6HRS PRN PO ANXIETY / AGITATION Last administered on 08/21/18at 20:06; Start 08/11/18 at 22:30 Divalproex Sodium (Depakote Sprinkles) 250 mg BIDWMEALS PO Last administered on 08/13/18at 18:08; Start 08/12/18 at 08:00; Stop 08/13/18 at 20:26; Status DC Duloxetine HCl (Cymbalta) 60 mg BIDWMEALS PO Last administered on 08/13/18 18 :08; Start 08/12/18 at 08:00; Stop 08/13/18 at 20:26; Status DC Risperidone (RisperDAL) 2 mg BIDWMEALS PO Last administered on 08/14/18at 17:45 ; Start 08/12/18 at 08:00; Stop 08/14/18 at 18:45; Status DC Trazodone HCl (Desyrel) 100 mg HS PO Last administered on 08/21/18 20:02; Start 08/11/18 at 22:30 Ascorbic Acid (Vitamin C) 500 mg BIDWMEALS PO Last administered on 08/21/18 17:10; Start 08/12/18 at 08:00 Calcium Carbonate/ Glycine (Tums) 500 mg PRN Q6HRS PRN PO INDIGESTION; Start 08/11/18 at 22:15 Vitamin D (Vitamin D3) 2,000 unit DAILY PO Last administered on 08/21/18at 08: 04; Start 08/12/18 at 09:00 Diclofenac Sodium (Voltaren) 1 yaima QID TP Last administered on 08/21/18 20:06 ; Start 08/12/18 at 09:00 Guaifenesin (Mucinex Er) 600 mg BIDWMEALS PO Last administered on 08/21/18 17 :10; Start 08/12/18 at 08:00 Acetaminophen/ Hydrocodone Bitart (Lortab 5/325) 1 tab PRN Q6HRS PRN PO PAIN; Start 08/11/18 at 22:15 Levothyroxine Sodium (Synthroid) 100 mcg DAILY06 PO Last administered on at 06:17; Start 08/12/18 at 06:00 Lisinopril (Prinivil) 10 mg DAILY PO Last administered on 08/20/18at 08:23; Start 08/12/18 at 09:00 Nitroglycerin (Nitrostat) 0.4 mg PRN Q5MIN PRN SL CHEST PAIN; Start 08/11/18 at 22:15 Nystatin (Nystop) 1 yaima BID TP Last administered on 08/21/18at 20:05; Start at 09:00 Allopurinol (Zyloprim) 100 mg DAILY PO Last administered on 08/21/18 08:03; Start 08/12/18 at 09:00 Carvedilol (Coreg) 12.5 mg BIDWMEALS PO Last administered on 08/21/18 17:09; Start 08/12/18 at 08:00 Folic Acid (Folic Acid) 1 mg DAILY PO Last administered on 08/21/18 08:01; Start 08/12/18 at 09:00 Furosemide (Lasix) 40 mg DAILY PO Last administered on 08/20/18 08:24; Start 08/12/18 at 09:00 Insulin Human Lispro (HumaLOG) 5 units TIDWMEALS SQ Last administered on 17:12; Start 08/12/18 at 08:00 Insulin Glargine (Lantus) 10 units QHS SQ Last administered on 08/21/18 20:05 ; Start 08/11/18 at 23:00 Loperamide HCl (Imodium) 2 mg PRN Q6HRS PRN PO DIARRHEA; Start 08/11/18 at 22: 45 Non-Formulary Medication (Magnesium Hydroxide (Milk Of Magnesia)) 2,400 mg PRN DAILY PRN PO CONSTIPATION; Start 08/11/18 at 22:15; Status UNV Metformin HCl (Glucophage) 1,000 mg BIDWMEALS PO Last administered on 17:10; Start 08/12/18 at 08:00 Methotrexate (Rheumatrex) 15 mg WEEKLY PO Last administered on 08/18/18at 12:12 ; Start 08/18/18 at 09:00 Multivitamins/ Calcium (Thera-M Plus) 1 tab DAILY PO Last administered on 08/21 08:02; Start 08/12/18 at 09:00 Glucose (Insta-Glucose) 15 gm PRN Q15MIN PRN PO LOW BLOOD SUGAR; Start at 08:15 Divalproex Sodium (Depakote Sprinkles) 500 mg BIDWMEALS PO ; Start 08/13/18 at 20:27; Stop 08/13/18 at 20:36; Status DC Duloxetine HCl (Cymbalta) 60 mg DAILY PO Last administered on 08/21/18 08:01 ; Start 08/14/18 at 09:00 Divalproex Sodium (Depakote Sprinkles) 500 mg BIDWMEALS PO Last administered on 08/21/18at 17:09; Start 08/14/18 at 08:00 Risperidone (RisperDAL) 1.5 mg DAILY PO ; Start 08/14/18 at 19:00; Stop at 19:00; Status DC Risperidone (RisperDAL) 2 mg HS PO Last administered on 08/16/18at 18:51; Start 08/14/18 at 21:00; Stop 08/17/18 at 18:30; Status DC Risperidone (RisperDAL) 1.5 mg HS PO ; Start 08/18/18 at 21:00; Stop 08/18/18 at 21:00; Status DC Risperidone (RisperDAL) 1.5 mg DAILY PO Last administered on 08/17/18at 08:08; Start 08/15/18 at 09:00; Stop 08/17/18 at 18:30; Status DC Amantadine HCl (Symmetrel) 100 mg DAILY PO Last administered on 08/21/18at 08: 02; Start 08/17/18 at 09:00 Risperidone (RisperDAL) 1.5 mg BID PO Last administered on 08/19/18at 08:15; Start 08/17/18 at 21:00; Stop 08/19/18 at 15:58; Status DC Risperidone (RisperDAL) 1 mg BID PO Last administered on 08/21/18at 20:02; Start 08/19/18 at 21:00 Active Scripts Active Reported Xanax (Alprazolam) 0.5 Mg Tablet 0.5 Mg PO PRN Q6HRS PRN Hydrocodone-Apap 5-325 (Hydrocodone Bit/Acetaminophen) 1 Each Tablet 1 Tab PO PRN Q6HRS PRN Voltaren (Diclofenac Sodium) 100 Gm Gel..gram. 4 Gm TP QID Nystatin 15 Gm Powder 1 Yaima TP BID Tums (Calcium Carbonate) 200 Mg Tab.chew 2 Tab PO PRN Q6HRS PRN Nitrostat (Nitroglycerin) 0.4 Mg Tab.subl 0.4 Mg SL PRN Q5MIN PRN Milk Of Magnesia (Magnesium Hydroxide) 2,400 Mg/10 Ml Oral.susp 2,400 Mg PO PRN DAILY PRN Loperamide (Loperamide Hcl) 2 Mg Tablet 2 Mg PO PRN Q6HRS PRN Vitamin C (Ascorbic Acid) 500 Mg Tablet 500 Mg PO BIDWMEALS Risperdal (Risperidone) 2 Mg Tablet 2 Mg PO BIDWMEALS Mucinex (Guaifenesin) 600 Mg Tablet.er 600 Mg PO BIDWMEALS Metformin Hcl 1,000 Mg Tablet 1,000 Mg PO BIDWMEALS Cymbalta (Duloxetine Hcl) 60 Mg Capsule.dr 60 Mg PO BIDWMEALS Depakote Sprinkle (Divalproex Sodium) 125 Mg Cap.sprink 250 Mg PO BIDWMEALS Coreg (Carvedilol) 12.5 Mg Tablet 12.5 Mg PO BIDWMEALS Vitamin D3 (Cholecalciferol (Vitamin D3)) 1,000 Unit Tablet 2,000 Unit PO DAILY Trazodone Hcl 100 Mg Tablet 100 Mg PO HS Multivitamins (Multivitamin) 1 Each Tablet 1 Tab PO DAILY Methotrexate (Methotrexate Sodium) 2.5 Mg Tablet 15 Mg PO WEEKLY Lisinopril 10 Mg Tablet 10 Mg PO DAILY Levothyroxine Sodium 100 Mcg Tablet 100 Mcg PO DAILYAC Lasix (Furosemide) 40 Mg Tablet 40 Mg PO DAILY Folic Acid 1 Mg Tablet 1 Mg PO DAILY Allopurinol 100 Mg Tablet 100 Mg PO DAILY Novolog (Insulin Aspart) 100 Unit/1 Ml Vial 5 Unit SQ TIDWMEALS Levemir (Insulin Detemir) 100 Unit/1 Ml Vial 10 Unit SQ HS I have reviewed the current psychotropics carefully including drug interactions. Risk benefit ratio favors no change other than as noted in my dictated progress note. Diagnosis: Problems: (1) Anxiety disorder (2) Major depressive disorder, recurrent episode (3) Impulse control disorder (4) Dementia in Alzheimer's disease with delusions (5) Dementia in Alzheimer's disease with depression (6) Dementia, vascular, with delusions (7) Dementia, vascular, with depression KAITLIN DREW MD Aug 21, 2018 23:18
[2018-08-22 05:49] VITALS: BP 98/60
[2018-08-22] MEDS: LEVOTHYROXINE 100 MCG TABLET PO SCH (05:58)
[2018-08-22] MEDS: INSULIN LISPRO 300 UNITS/3 ML INSULN.PEN. SQ SCH ×3 (08:00→17:00)
[2018-08-22] MEDS: CARVEDILOL 12.5 MG TABLET PO SCH ×2 (08:00→18:00)
[2018-08-22] MEDS: LISINOPRIL 10 MG TABLET PO SCH (09:00)
[2018-08-22] MEDS: DIVALPROEX 125 MG CAP.SPRINK PO SCH ×2 (11:31→18:54)
[2018-08-22] MEDS: ASCORBIC ACID 500 MG TABLET PO SCH ×2 (11:31→18:54)
[2018-08-22] MEDS: FOLIC ACID 1 MG TABLET PO SCH (11:32)
[2018-08-22] MEDS: CHOLECALCIFEROL (VITAMIN D3) 1,000 UNIT TABLET PO SCH (11:32)
[2018-08-22] MEDS: MULTIVITAMIN with MINERAL TABLET. PO SCH (11:32)
[2018-08-22] MEDS: DULoxetine HCL 60 MG CAPSULE.DR PO SCH (11:32)
[2018-08-22] MEDS: risperiDONE 1 MG TABLET. PO SCH ×2 (11:33→20:18)
[2018-08-22] MEDS: FUROSEMIDE 40 MG TABLET PO SCH (11:33)
[2018-08-22] MEDS: DICLOFENAC SODIUM 1% TOPICAL GEL 100GM TUBE. TP SCH ×4 (11:34→20:21)
[2018-08-22] MEDS: metFORMIN 500 MG TABLET PO SCH ×2 (11:34→18:54)
[2018-08-22] MEDS: NYSTATIN TOPICAL POWDER 15GM BOTTLE. TP SCH ×2 (11:36→20:20)
[2018-08-22 12:19] VITALS: BP 117/74
[2018-08-22] MEDS: ALLOPURINOL 100 MG TABLET. PO SCH (12:29)
[2018-08-22] MEDS: AMANTADINE HCL 100 MG CAPSULE PO SCH (14:23)
[2018-08-22 16:57] VITALS: BP 103/55
[2018-08-22] MEDS: traZODone 100 MG TABLET. PO SCH (20:18)
[2018-08-22] MEDS: INSULIN GLARGINE 300 UNITS/3 ML INSULN.PEN. SQ SCH (20:19)
--- NOTE | 2018-08-22 21:17 | PN ---
DATE: 08/19/2018 PSYCHIATRIC PROGRESS NOTE This late entry 08/19/2018 covers elements not covered in my initial note. SUBJECTIVE: I met with the patient in the evening and staffed at a treatment team meeting with the entire team earlier in the day. The patient's valproic acid level is 71. She sleeps in late and slept 5 hours previous night. She remains somewhat withdrawn, but not aggressive. REVIEW OF SYSTEMS: Extremely hard of hearing, unable to speak consequent to this, does sign language. No CV, GI, , eye system symptoms on review. Ambulation impaired with walker. MENTAL STATUS EXAM: Oriented to herself and situation. Speech as above. Abstraction fair, computation impaired, language function intact, attention span short. Mood and affect somewhat withdrawn. We have been tapering the Risperdal, but not seen any psychotic symptoms so far. IMPRESSION: Bipolar 1 disorder, mixed with psychotic features, in partial remission; anxiety disorder, unspecified. Rest unchanged. PLAN: Reduce the Risperdal from 1.5 mg twice a day down to 1 mg twice a day. Rest unchanged from initial note. Valproic acid level therapeutic at 64. MAN Vanesa DREW MD DR: STEFAN/satya JOB#: [id number] / [id number]
--- NOTE | 2018-08-22 22:51 | PDOC ---
Exam Note: Johnnie Note: Please also refer to the separate dictated note~for this date of service dictated separately.~Patient seen individually. Discussed the patient with Nursing staff reviewed the chart.~Reviewed interim history and current functioning. Reviewed vital signs,~Labs/ Radiology~and current medications noted below. Continue current treatment with the changes noted in the dictated addendum note Assessment: Vital Signs: Vital Signs Date Time Temp Pulse Resp B/P (MAP) Pulse Ox O2 Delivery O2 Flow Rate FiO2 08/22/18 18:00 77 103/55 08/22/18 16:57 97.1 16 93 08/22/18 12:19 Room Air I&O Intake and Output 08/22/18 07:01 Intake Total 1080 ml Balance 1080 ml Intake Oral 1080 ml Labs: Laboratory Tests Test 08/22/18 08:15 08/22/18 12:00 08/22/18 16:49 08/22/18 19:00 Glucose (Fingerstick) 86 mg/dL (70-99) 107 mg/dL (70-99) H 92 mg/dL (70-99) 185 mg/dL (70-99) H Current Medications: Meds: Current Medications Acetaminophen (Tylenol) 650 mg PRN Q6HRS PRN PO PAIN / TEMP; Start 08/11/18 at 21:00 Multi-Ingredient Ointment (Analgesic [place]) 1 yaima PRN QID PRN TP MUSCLE PAIN; Start 08/11/18 at 21:00 Al Hydroxide/Mg Hydroxide (Mylanta Plus Xs) 15 ml PRN AFTMEALHC PRN PO DYSPEPSIA; Start 08/11/18 at 21:00 Magnesium Hydroxide (Milk Of Magnesia) 2,400 mg PRN QHS PRN PO CONSTIPATION; Start 08/11/18 at 21:00 Alprazolam (Xanax) 0.5 mg PRN Q6HRS PRN PO ANXIETY / AGITATION Last administered on 08/21/18at 20:06; Start 08/11/18 at 22:30 Divalproex Sodium (Depakote Sprinkles) 250 mg BIDWMEALS PO Last administered on 08/13/18at 18:08; Start 08/12/18 at 08:00; Stop 08/13/18 at 20:26; Status DC Duloxetine HCl (Cymbalta) 60 mg BIDWMEALS PO Last administered on 08/13/18 18 :08; Start 08/12/18 at 08:00; Stop 08/13/18 at 20:26; Status DC Risperidone (RisperDAL) 2 mg BIDWMEALS PO Last administered on 08/14/18at 17:45 ; Start 08/12/18 at 08:00; Stop 08/14/18 at 18:45; Status DC Trazodone HCl (Desyrel) 100 mg HS PO Last administered on 08/22/18 20:18; Start 08/11/18 at 22:30 Ascorbic Acid (Vitamin C) 500 mg BIDWMEALS PO Last administered on 08/22/18 18:54; Start 08/12/18 at 08:00 Calcium Carbonate/ Glycine (Tums) 500 mg PRN Q6HRS PRN PO INDIGESTION; Start 08/11/18 at 22:15 Vitamin D (Vitamin D3) 2,000 unit DAILY PO Last administered on 08/22/18 11: 32; Start 08/12/18 at 09:00 Diclofenac Sodium (Voltaren) 1 yaima QID TP Last administered on 08/22/18 20:21 ; Start 08/12/18 at 09:00 Guaifenesin (Mucinex Er) 600 mg BIDWMEALS PO Last administered on 08/22/18 18 :54; Start 08/12/18 at 08:00 Acetaminophen/ Hydrocodone Bitart (Lortab 5/325) 1 tab PRN Q6HRS PRN PO PAIN; Start 08/11/18 at 22:15 Levothyroxine Sodium (Synthroid) 100 mcg DAILY06 PO Last administered on at 05:58; Start 08/12/18 at 06:00 Lisinopril (Prinivil) 10 mg DAILY PO Last administered on 08/20/18at 08:23; Start 08/12/18 at 09:00 Nitroglycerin (Nitrostat) 0.4 mg PRN Q5MIN PRN SL CHEST PAIN; Start 08/11/18 at 22:15 Nystatin (Nystop) 1 yaima BID TP Last administered on 08/22/18 20:20; Start at 09:00 Allopurinol (Zyloprim) 100 mg DAILY PO Last administered on 08/22/18at 12:29; Start 08/12/18 at 09:00 Carvedilol (Coreg) 12.5 mg BIDWMEALS PO Last administered on 08/22/18 18:00; Start 08/12/18 at 08:00 Folic Acid (Folic Acid) 1 mg DAILY PO Last administered on 08/22/18 11:32; Start 08/12/18 at 09:00 Furosemide (Lasix) 40 mg DAILY PO Last administered on 08/22/18 11:33; Start 08/12/18 at 09:00 Insulin Human Lispro (HumaLOG) 5 units TIDWMEALS SQ Last administered on 12:32; Start 08/12/18 at 08:00 Insulin Glargine (Lantus) 10 units QHS SQ Last administered on 08/22/18 20:19 ; Start 08/11/18 at 23:00 Loperamide HCl (Imodium) 2 mg PRN Q6HRS PRN PO DIARRHEA; Start 08/11/18 at 22: 45 Non-Formulary Medication (Magnesium Hydroxide (Milk Of Magnesia)) 2,400 mg PRN DAILY PRN PO CONSTIPATION; Start 08/11/18 at 22:15; Status UNV Metformin HCl (Glucophage) 1,000 mg BIDWMEALS PO Last administered on 18:54; Start 08/12/18 at 08:00 Methotrexate (Rheumatrex) 15 mg WEEKLY PO Last administered on 08/18/18 12:12 ; Start 08/18/18 at 09:00 Multivitamins/ Calcium (Thera-M Plus) 1 tab DAILY PO Last administered on 08/22 11:32; Start 08/12/18 at 09:00 Glucose (Insta-Glucose) 15 gm PRN Q15MIN PRN PO LOW BLOOD SUGAR; Start at 08:15 Divalproex Sodium (Depakote Sprinkles) 500 mg BIDWMEALS PO ; Start 08/13/18 at 20:27; Stop 08/13/18 at 20:36; Status DC Duloxetine HCl (Cymbalta) 60 mg DAILY PO Last administered on 08/22/18 11:32 ; Start 08/14/18 at 09:00 Divalproex Sodium (Depakote Sprinkles) 500 mg BIDWMEALS PO Last administered on 08/22/18at 18:54; Start 08/14/18 at 08:00 Risperidone (RisperDAL) 1.5 mg DAILY PO ; Start 08/14/18 at 19:00; Stop at 19:00; Status DC Risperidone (RisperDAL) 2 mg HS PO Last administered on 08/16/18at 18:51; Start 08/14/18 at 21:00; Stop 08/17/18 at 18:30; Status DC Risperidone (RisperDAL) 1.5 mg HS PO ; Start 08/18/18 at 21:00; Stop 08/18/18 at 21:00; Status DC Risperidone (RisperDAL) 1.5 mg DAILY PO Last administered on 08/17/18at 08:08; Start 08/15/18 at 09:00; Stop 08/17/18 at 18:30; Status DC Amantadine HCl (Symmetrel) 100 mg DAILY PO Last administered on 08/22/18at 14: 23; Start 08/17/18 at 09:00 Risperidone (RisperDAL) 1.5 mg BID PO Last administered on 08/19/18at 08:15; Start 08/17/18 at 21:00; Stop 08/19/18 at 15:58; Status DC Risperidone (RisperDAL) 1 mg BID PO Last administered on 08/22/18at 11:33; Start 08/19/18 at 21:00; Stop 08/22/18 at 17:30; Status DC Risperidone (RisperDAL) 1 mg QHS PO Last administered on 08/22/18at 20:18; Start 08/22/18 at 21:00 Risperidone (RisperDAL) 0.5 mg DAILY PO ; Start 08/23/18 at 09:00 Active Scripts Active Reported Xanax (Alprazolam) 0.5 Mg Tablet 0.5 Mg PO PRN Q6HRS PRN Hydrocodone-Apap 5-325 (Hydrocodone Bit/Acetaminophen) 1 Each Tablet 1 Tab PO PRN Q6HRS PRN Voltaren (Diclofenac Sodium) 100 Gm Gel..gram. 4 Gm TP QID Nystatin 15 Gm Powder 1 Yaima TP BID Tums (Calcium Carbonate) 200 Mg Tab.chew 2 Tab PO PRN Q6HRS PRN Nitrostat (Nitroglycerin) 0.4 Mg Tab.subl 0.4 Mg SL PRN Q5MIN PRN Milk Of Magnesia (Magnesium Hydroxide) 2,400 Mg/10 Ml Oral.susp 2,400 Mg PO PRN DAILY PRN Loperamide (Loperamide Hcl) 2 Mg Tablet 2 Mg PO PRN Q6HRS PRN Vitamin C (Ascorbic Acid) 500 Mg Tablet 500 Mg PO BIDWMEALS Risperdal (Risperidone) 2 Mg Tablet 2 Mg PO BIDWMEALS Mucinex (Guaifenesin) 600 Mg Tablet.er 600 Mg PO BIDWMEALS Metformin Hcl 1,000 Mg Tablet 1,000 Mg PO BIDWMEALS Cymbalta (Duloxetine Hcl) 60 Mg Capsule.dr 60 Mg PO BIDWMEALS Depakote Sprinkle (Divalproex Sodium) 125 Mg Cap.sprink 250 Mg PO BIDWMEALS Coreg (Carvedilol) 12.5 Mg Tablet 12.5 Mg PO BIDWMEALS Vitamin D3 (Cholecalciferol (Vitamin D3)) 1,000 Unit Tablet 2,000 Unit PO DAILY Trazodone Hcl 100 Mg Tablet 100 Mg PO HS Multivitamins (Multivitamin) 1 Each Tablet 1 Tab PO DAILY Methotrexate (Methotrexate Sodium) 2.5 Mg Tablet 15 Mg PO WEEKLY Lisinopril 10 Mg Tablet 10 Mg PO DAILY Levothyroxine Sodium 100 Mcg Tablet 100 Mcg PO DAILYAC Lasix (Furosemide) 40 Mg Tablet 40 Mg PO DAILY Folic Acid 1 Mg Tablet 1 Mg PO DAILY Allopurinol 100 Mg Tablet 100 Mg PO DAILY Novolog (Insulin Aspart) 100 Unit/1 Ml Vial 5 Unit SQ TIDWMEALS Levemir (Insulin Detemir) 100 Unit/1 Ml Vial 10 Unit SQ HS I have reviewed the current psychotropics carefully including drug interactions. Risk benefit ratio favors no change other than as noted in my dictated progress note. Diagnosis: Problems: (1) Anxiety disorder (2) Major depressive disorder, recurrent episode (3) Impulse control disorder (4) Dementia in Alzheimer's disease with delusions (5) Dementia in Alzheimer's disease with depression (6) Dementia, vascular, with delusions (7) Dementia, vascular, with depression KAITLIN DREW MD Aug 22, 2018 22:51
--- NOTE | 2018-08-23 01:08 | PN ---
DATE: 08/21/2018 This is a late entry of 08/21/2018, covers elements not covered in my initial note. SUBJECTIVE: I met with the patient in the evening. The patient slept 8-1/4 hours previous night. At night, she refused shower, urinated in her bed and in the evening, she was repeatedly putting on the bathroom light. She received Xanax p.r.n., then did better. REVIEW OF SYSTEMS: Difficulty with hearing and speech. No CV, , pulmonary, or eye system symptoms on review. Reliability poor. MENTAL STATUS EXAM: Oriented to herself and situation. Speech as above. Abstraction fair, computation impaired, language function intact. Mood and affect somewhat withdrawn. LABORATORY DATA: Reviewed. IMPRESSION: Unchanged from initial note. PLAN: No change from initial note. MAN Vanesa DREW MD DR: STEFAN/satya JOB#: [id number] / [id number]
--- NOTE | 2018-08-23 02:39 | PN ---
DATE: 08/20/2018 This is a late entry of 08/20/2018 covers elements not covered in my initial note. SUBJECTIVE: I met with the patient in the evening. The patient slept 6-1/2 hours previous evening. She is compliant with medications, not aggressive. Valproic acid level therapeutic at 71. REVIEW OF SYSTEMS: Extremely hard of hearing, unable to speak consequent to the hearing problem. No CV, , GI, or pulmonary system symptoms on review. MENTAL STATUS EXAM: Oriented to herself and situation. Speech is negative. Much of communication is nonverbal. Abstraction fair, computation impaired, language function intact, attention span short. Mood and affect somewhat withdrawn, tired. LABORATORY DATA: Reviewed. IMPRESSION: Bipolar 1 disorder, mixed with psychotic features. Rest unchanged. PLAN: No change from initial note. MAN Vanesa DREW MD DR: STEFNA/satya JOB#: [id number] / [id number]
[2018-08-23 06:11] VITALS: BP 94/52
[2018-08-23] MEDS: LEVOTHYROXINE 100 MCG TABLET PO SCH (06:27)
[2018-08-23] MEDS: NYSTATIN TOPICAL POWDER 15GM BOTTLE. TP SCH (07:56)
[2018-08-23] MEDS: DICLOFENAC SODIUM 1% TOPICAL GEL 100GM TUBE. TP SCH ×4 (07:56→21:02)
[2018-08-23] MEDS: DULoxetine HCL 60 MG CAPSULE.DR PO SCH (07:57)
[2018-08-23] MEDS: ALLOPURINOL 100 MG TABLET. PO SCH (07:57)
[2018-08-23] MEDS: DIVALPROEX 125 MG CAP.SPRINK PO SCH ×2 (07:57→17:32)
[2018-08-23] MEDS: metFORMIN 500 MG TABLET PO SCH ×2 (07:57→17:33)
[2018-08-23] MEDS: ASCORBIC ACID 500 MG TABLET PO SCH ×2 (07:58→17:32)
[2018-08-23] MEDS: FOLIC ACID 1 MG TABLET PO SCH (07:58)
[2018-08-23] MEDS: MULTIVITAMIN with MINERAL TABLET. PO SCH (07:59)
[2018-08-23] MEDS: CARVEDILOL 12.5 MG TABLET PO SCH ×2 (07:59→17:33)
[2018-08-23] MEDS: CHOLECALCIFEROL (VITAMIN D3) 1,000 UNIT TABLET PO SCH (07:59)
[2018-08-23] MEDS: LISINOPRIL 10 MG TABLET PO SCH (07:59)
[2018-08-23] MEDS: FUROSEMIDE 40 MG TABLET PO SCH (08:00)
[2018-08-23] MEDS: AMANTADINE HCL 100 MG CAPSULE PO SCH (08:00)
[2018-08-23] MEDS: INSULIN LISPRO 300 UNITS/3 ML INSULN.PEN. SQ SCH ×3 (08:00→17:35)
[2018-08-23] MEDS: risperiDONE 0.25 MG TABLET. PO SCH (08:02)
[2018-08-23 16:35] VITALS: BP 105/87
[2018-08-23] MEDS: traZODone 100 MG TABLET. PO SCH (21:02)
[2018-08-23] MEDS: risperiDONE 1 MG TABLET. PO SCH (21:02)
[2018-08-23] MEDS: INSULIN GLARGINE 300 UNITS/3 ML INSULN.PEN. SQ SCH (21:04)
--- NOTE | 2018-08-23 23:01 | PDOC ---
Exam Note: Johnnie Note: Please also refer to the separate dictated note~for this date of service dictated separately.~Patient seen individually. Discussed the patient with Nursing staff reviewed the chart.~Reviewed interim history and current functioning. Reviewed vital signs,~Labs/ Radiology~and current medications noted below. Continue current treatment with the changes noted in the dictated addendum note Assessment: Vital Signs: Vital Signs Date Time Temp Pulse Resp B/P (MAP) Pulse Ox O2 Delivery O2 Flow Rate FiO2 08/23/18 17:33 85 105/87 08/23/18 16:35 98.3 18 98 08/22/18 12:19 Room Air I&O Intake and Output 08/23/18 07:01 Intake Total 720 ml Balance 720 ml Intake Oral 720 ml Labs: Laboratory Tests Test 08/23/18 07:09 08/23/18 11:25 08/23/18 17:06 08/23/18 19:35 Glucose (Fingerstick) 87 mg/dL (70-99) 110 mg/dL (70-99) H 136 mg/dL (70-99) H 142 mg/dL (70-99) H Current Medications: Meds: Current Medications Acetaminophen (Tylenol) 650 mg PRN Q6HRS PRN PO PAIN / TEMP; Start 08/11/18 at 21:00 Multi-Ingredient Ointment (Analgesic [place]) 1 yaima PRN QID PRN TP MUSCLE PAIN; Start 08/11/18 at 21:00 Al Hydroxide/Mg Hydroxide (Mylanta Plus Xs) 15 ml PRN AFTMEALHC PRN PO DYSPEPSIA; Start 08/11/18 at 21:00 Magnesium Hydroxide (Milk Of Magnesia) 2,400 mg PRN QHS PRN PO CONSTIPATION; Start 08/11/18 at 21:00 Alprazolam (Xanax) 0.5 mg PRN Q6HRS PRN PO ANXIETY / AGITATION Last administered on 08/21/18at 20:06; Start 08/11/18 at 22:30 Divalproex Sodium (Depakote Sprinkles) 250 mg BIDWMEALS PO Last administered on 08/13/18at 18:08; Start 08/12/18 at 08:00; Stop 08/13/18 at 20:26; Status DC Duloxetine HCl (Cymbalta) 60 mg BIDWMEALS PO Last administered on 08/13/18at 18 :08; Start 08/12/18 at 08:00; Stop 08/13/18 at 20:26; Status DC Risperidone (RisperDAL) 2 mg BIDWMEALS PO Last administered on 08/14/18at 17:45 ; Start 08/12/18 at 08:00; Stop 08/14/18 at 18:45; Status DC Trazodone HCl (Desyrel) 100 mg HS PO Last administered on 08/23/18 21:02; Start 08/11/18 at 22:30 Ascorbic Acid (Vitamin C) 500 mg BIDWMEALS PO Last administered on 08/23/18 17: 32; Start 08/12/18 at 08:00 Calcium Carbonate/ Glycine (Tums) 500 mg PRN Q6HRS PRN PO INDIGESTION; Start 08/11/18 at 22:15 Vitamin D (Vitamin D3) 2,000 unit DAILY PO Last administered on 08/23/18 07:59 ; Start 08/12/18 at 09:00 Diclofenac Sodium (Voltaren) 1 yaima QID TP Last administered on 08/23/18 21:02; Start 08/12/18 at 09:00 Guaifenesin (Mucinex Er) 600 mg BIDWMEALS PO Last administered on 08/23/18 17: 32; Start 08/12/18 at 08:00 Acetaminophen/ Hydrocodone Bitart (Lortab 5/325) 1 tab PRN Q6HRS PRN PO PAIN; Start 08/11/18 at 22:15 Levothyroxine Sodium (Synthroid) 100 mcg DAILY06 PO Last administered on 06:27; Start 08/12/18 at 06:00 Lisinopril (Prinivil) 10 mg DAILY PO Last administered on 08/23/18 07:59; Start 08/12/18 at 09:00 Nitroglycerin (Nitrostat) 0.4 mg PRN Q5MIN PRN SL CHEST PAIN; Start 08/11/18 at 22:15 Nystatin (Nystop) 1 yaima BID TP Last administered on 08/23/18 07:56; Start at 09:00 Allopurinol (Zyloprim) 100 mg DAILY PO Last administered on 08/23/18 07:57; Start 08/12/18 at 09:00 Carvedilol (Coreg) 12.5 mg BIDWMEALS PO Last administered on 08/23/18 17:33; Start 08/12/18 at 08:00 Folic Acid (Folic Acid) 1 mg DAILY PO Last administered on 08/23/18 07:58; Start 08/12/18 at 09:00 Furosemide (Lasix) 40 mg DAILY PO Last administered on 08/23/18 08:00; Start 08/12/18 at 09:00 Insulin Human Lispro (HumaLOG) 5 units TIDWMEALS SQ Last administered on 17:35; Start 08/12/18 at 08:00 Insulin Glargine (Lantus) 10 units QHS SQ Last administered on 08/23/18 21:04; Start 08/11/18 at 23:00 Loperamide HCl (Imodium) 2 mg PRN Q6HRS PRN PO DIARRHEA; Start 08/11/18 at 22: 45 Non-Formulary Medication (Magnesium Hydroxide (Milk Of Magnesia)) 2,400 mg PRN DAILY PRN PO CONSTIPATION; Start 08/11/18 at 22:15; Status UNV Metformin HCl (Glucophage) 1,000 mg BIDWMEALS PO Last administered on 08/23/18 17:33; Start 08/12/18 at 08:00 Methotrexate (Rheumatrex) 15 mg WEEKLY PO Last administered on 08/18/18at 12:12 ; Start 08/18/18 at 09:00 Multivitamins/ Calcium (Thera-M Plus) 1 tab DAILY PO Last administered on 07:59; Start 08/12/18 at 09:00 Glucose (Insta-Glucose) 15 gm PRN Q15MIN PRN PO LOW BLOOD SUGAR; Start at 08:15 Divalproex Sodium (Depakote Sprinkles) 500 mg BIDWMEALS PO ; Start 08/13/18 at 20:27; Stop 08/13/18 at 20:36; Status DC Duloxetine HCl (Cymbalta) 60 mg DAILY PO Last administered on 08/23/18 07:57; Start 08/14/18 at 09:00 Divalproex Sodium (Depakote Sprinkles) 500 mg BIDWMEALS PO Last administered on 08/23/18at 17:32; Start 08/14/18 at 08:00 Risperidone (RisperDAL) 1.5 mg DAILY PO ; Start 08/14/18 at 19:00; Stop at 19:00; Status DC Risperidone (RisperDAL) 2 mg HS PO Last administered on 08/16/18at 18:51; Start 08/14/18 at 21:00; Stop 08/17/18 at 18:30; Status DC Risperidone (RisperDAL) 1.5 mg HS PO ; Start 08/18/18 at 21:00; Stop 08/18/18 at 21:00; Status DC Risperidone (RisperDAL) 1.5 mg DAILY PO Last administered on 08/17/18at 08:08; Start 08/15/18 at 09:00; Stop 08/17/18 at 18:30; Status DC Amantadine HCl (Symmetrel) 100 mg DAILY PO Last administered on 08/23/18at 08:00 ; Start 08/17/18 at 09:00; Stop 08/23/18 at 21:37; Status DC Risperidone (RisperDAL) 1.5 mg BID PO Last administered on 08/19/18at 08:15; Start 08/17/18 at 21:00; Stop 08/19/18 at 15:58; Status DC Risperidone (RisperDAL) 1 mg BID PO Last administered on 08/22/18at 11:33; Start 08/19/18 at 21:00; Stop 08/22/18 at 17:30; Status DC Risperidone (RisperDAL) 1 mg QHS PO Last administered on 08/23/18at 21:02; Start 08/22/18 at 21:00 Risperidone (RisperDAL) 0.5 mg DAILY PO Last administered on 08/23/18at 08:02; Start 08/23/18 at 09:00; Stop 08/25/18 at 09:00 Amantadine HCl (Symmetrel) 100 mg BID PO ; Start 08/24/18 at 09:00 Active Scripts Active Reported Xanax (Alprazolam) 0.5 Mg Tablet 0.5 Mg PO PRN Q6HRS PRN Hydrocodone-Apap 5-325 (Hydrocodone Bit/Acetaminophen) 1 Each Tablet 1 Tab PO PRN Q6HRS PRN Voltaren (Diclofenac Sodium) 100 Gm Gel..gram. 4 Gm TP QID Nystatin 15 Gm Powder 1 Yaima TP BID Tums (Calcium Carbonate) 200 Mg Tab.chew 2 Tab PO PRN Q6HRS PRN Nitrostat (Nitroglycerin) 0.4 Mg Tab.subl 0.4 Mg SL PRN Q5MIN PRN Milk Of Magnesia (Magnesium Hydroxide) 2,400 Mg/10 Ml Oral.susp 2,400 Mg PO PRN DAILY PRN Loperamide (Loperamide Hcl) 2 Mg Tablet 2 Mg PO PRN Q6HRS PRN Vitamin C (Ascorbic Acid) 500 Mg Tablet 500 Mg PO BIDWMEALS Risperdal (Risperidone) 2 Mg Tablet 2 Mg PO BIDWMEALS Mucinex (Guaifenesin) 600 Mg Tablet.er 600 Mg PO BIDWMEALS Metformin Hcl 1,000 Mg Tablet 1,000 Mg PO BIDWMEALS Cymbalta (Duloxetine Hcl) 60 Mg Capsule.dr 60 Mg PO BIDWMEALS Depakote Sprinkle (Divalproex Sodium) 125 Mg Cap.sprink 250 Mg PO BIDWMEALS Coreg (Carvedilol) 12.5 Mg Tablet 12.5 Mg PO BIDWMEALS Vitamin D3 (Cholecalciferol (Vitamin D3)) 1,000 Unit Tablet 2,000 Unit PO DAILY Trazodone Hcl 100 Mg Tablet 100 Mg PO HS Multivitamins (Multivitamin) 1 Each Tablet 1 Tab PO DAILY Methotrexate (Methotrexate Sodium) 2.5 Mg Tablet 15 Mg PO WEEKLY Lisinopril 10 Mg Tablet 10 Mg PO DAILY Levothyroxine Sodium 100 Mcg Tablet 100 Mcg PO DAILYAC Lasix (Furosemide) 40 Mg Tablet 40 Mg PO DAILY Folic Acid 1 Mg Tablet 1 Mg PO DAILY Allopurinol 100 Mg Tablet 100 Mg PO DAILY Novolog (Insulin Aspart) 100 Unit/1 Ml Vial 5 Unit SQ TIDWMEALS Levemir (Insulin Detemir) 100 Unit/1 Ml Vial 10 Unit SQ HS I have reviewed the current psychotropics carefully including drug interactions. Risk benefit ratio favors no change other than as noted in my dictated progress note. Diagnosis: Problems: (1) Anxiety disorder (2) Major depressive disorder, recurrent episode (3) Impulse control disorder (4) Dementia in Alzheimer's disease with delusions (5) Dementia in Alzheimer's disease with depression (6) Dementia, vascular, with delusions (7) Dementia, vascular, with depression KAITLIN DREW MD Aug 23, 2018 23:01
--- NOTE | 2018-08-23 23:51 | PN ---
DATE: 08/22/2018 PSYCHIATRIC PROGRESS NOTE This is a late entry 08/22/2018 covers elements not covered in my initial note. SUBJECTIVE: I met with the patient in the evening. The patient slept 8-1/4 hours previous night and later reviewed that she in fact slept 6-1/2 hours. She slept 10:00 in the morning, however. She has been pleasant, despite reduction of the Risperdal. REVIEW OF SYSTEMS: Extremely hard of hearing, difficulty with her speech consequent to her deafness. Impaired ambulation. No CV, , GI, or pulmonary system symptoms on review. MENTAL STATUS EXAM: Oriented to herself and situation. Speech as above. Abstraction fair, computation impaired, language function intact, attention span short. Mood and affect somewhat withdrawn. LABORATORY DATA: Reviewed. IMPRESSION: Bipolar 1 disorder mixed with psychotic features, in partial remission; anxiety disorder, unspecified. Rest as above. PLAN: Reduce the Risperdal from 1 mg b.i.d. down to 0.5 mg in the morning and 1 mg at bedtime. Continue Cymbalta 60 mg a day, Depakote Sprinkles 500 mg b.i.d., level is therapeutic at 71; trazodone 100 mg at bedtime, Xanax p.r.n. KAITLIN DREW MD DR: STEFAN/satya JOB#: [id number] / [id number]
[2018-08-24] MEDS: NYSTATIN TOPICAL POWDER 15GM BOTTLE. TP SCH ×3 (02:52→22:50)
[2018-08-24 05:44] VITALS: BP 94/55
[2018-08-24] MEDS: LEVOTHYROXINE 100 MCG TABLET PO SCH (05:48)
[2018-08-24] MEDS: INSULIN LISPRO 300 UNITS/3 ML INSULN.PEN. SQ SCH ×3 (08:00→17:14)
[2018-08-24] MEDS: ASCORBIC ACID 500 MG TABLET PO SCH ×2 (08:15→17:10)
[2018-08-24] MEDS: DIVALPROEX 125 MG CAP.SPRINK PO SCH ×2 (08:15→17:11)
[2018-08-24] MEDS: MULTIVITAMIN with MINERAL TABLET. PO SCH (08:16)
[2018-08-24] MEDS: FOLIC ACID 1 MG TABLET PO SCH (08:16)
[2018-08-24] MEDS: CARVEDILOL 12.5 MG TABLET PO SCH ×2 (08:17→17:11)
[2018-08-24] MEDS: CHOLECALCIFEROL (VITAMIN D3) 1,000 UNIT TABLET PO SCH (08:17)
[2018-08-24] MEDS: DULoxetine HCL 60 MG CAPSULE.DR PO SCH (08:17)
[2018-08-24] MEDS: ALLOPURINOL 100 MG TABLET. PO SCH (08:17)
[2018-08-24] MEDS: risperiDONE 0.25 MG TABLET. PO SCH (08:18)
[2018-08-24] MEDS: metFORMIN 500 MG TABLET PO SCH ×2 (08:18→17:11)
[2018-08-24] MEDS: DICLOFENAC SODIUM 1% TOPICAL GEL 100GM TUBE. TP SCH ×5 (08:19→20:41)
[2018-08-24] MEDS: AMANTADINE HCL 100 MG CAPSULE PO SCH ×2 (08:19→20:41)
[2018-08-24] MEDS: LISINOPRIL 10 MG TABLET PO SCH (08:20)
[2018-08-24] MEDS: FUROSEMIDE 40 MG TABLET PO SCH (08:20)
[2018-08-24 16:31] VITALS: BP 138/54
[2018-08-24] MEDS: traZODone 100 MG TABLET. PO SCH (20:41)
[2018-08-24] MEDS: risperiDONE 1 MG TABLET. PO SCH (20:41)
[2018-08-24] MEDS: INSULIN GLARGINE 300 UNITS/3 ML INSULN.PEN. SQ SCH (20:44)
--- NOTE | 2018-08-24 22:52 | PDOC ---
Exam Note: Johnnie Note: Please also refer to the separate dictated note~for this date of service dictated separately.~Patient seen individually. Discussed the patient with Nursing staff reviewed the chart.~Reviewed interim history and current functioning. Reviewed vital signs,~Labs/ Radiology~and current medications noted below. Continue current treatment with the changes noted in the dictated addendum note Assessment: Vital Signs: Vital Signs Date Time Temp Pulse Resp B/P (MAP) Pulse Ox O2 Delivery O2 Flow Rate FiO2 08/24/18 17:11 69 138/54 08/24/18 16:31 98.0 20 93 08/22/18 12:19 Room Air I&O Intake and Output 08/24/18 07:01 Intake Total 840 ml Balance 840 ml Intake Oral 840 ml Labs: Laboratory Tests Test 08/24/18 07:25 08/24/18 11:37 08/24/18 16:35 08/24/18 19:20 Glucose (Fingerstick) 70 mg/dL (70-99) 78 mg/dL (70-99) 113 mg/dL (70-99) H 111 mg/dL (70-99) H Current Medications: Meds: Current Medications Acetaminophen (Tylenol) 650 mg PRN Q6HRS PRN PO PAIN / TEMP; Start 08/11/18 at 21:00 Multi-Ingredient Ointment (Analgesic [place]) 1 yaima PRN QID PRN TP MUSCLE PAIN; Start 08/11/18 at 21:00 Al Hydroxide/Mg Hydroxide (Mylanta Plus Xs) 15 ml PRN AFTMEALHC PRN PO DYSPEPSIA; Start 08/11/18 at 21:00 Magnesium Hydroxide (Milk Of Magnesia) 2,400 mg PRN QHS PRN PO CONSTIPATION; Start 08/11/18 at 21:00 Alprazolam (Xanax) 0.5 mg PRN Q6HRS PRN PO ANXIETY / AGITATION Last administered on 08/21/18at 20:06; Start 08/11/18 at 22:30 Divalproex Sodium (Depakote Sprinkles) 250 mg BIDWMEALS PO Last administered on 08/13/18at 18:08; Start 08/12/18 at 08:00; Stop 08/13/18 at 20:26; Status DC Duloxetine HCl (Cymbalta) 60 mg BIDWMEALS PO Last administered on 08/13/18at 18 :08; Start 08/12/18 at 08:00; Stop 08/13/18 at 20:26; Status DC Risperidone (RisperDAL) 2 mg BIDWMEALS PO Last administered on 08/14/18 17:45 ; Start 08/12/18 at 08:00; Stop 08/14/18 at 18:45; Status DC Trazodone HCl (Desyrel) 100 mg HS PO Last administered on 08/24/18 20:41; Start 08/11/18 at 22:30 Ascorbic Acid (Vitamin C) 500 mg BIDWMEALS PO Last administered on 08/24/18 17: 10; Start 08/12/18 at 08:00 Calcium Carbonate/ Glycine (Tums) 500 mg PRN Q6HRS PRN PO INDIGESTION; Start 08/11/18 at 22:15 Vitamin D (Vitamin D3) 2,000 unit DAILY PO Last administered on 08/24/18 08:17 ; Start 08/12/18 at 09:00 Diclofenac Sodium (Voltaren) 1 yaima QID TP Last administered on 08/24/18 20:41; Start 08/12/18 at 09:00 Guaifenesin (Mucinex Er) 600 mg BIDWMEALS PO Last administered on 08/24/18 17: 11; Start 08/12/18 at 08:00 Acetaminophen/ Hydrocodone Bitart (Lortab 5/325) 1 tab PRN Q6HRS PRN PO PAIN; Start 08/11/18 at 22:15 Levothyroxine Sodium (Synthroid) 100 mcg DAILY06 PO Last administered on 05:48; Start 08/12/18 at 06:00 Lisinopril (Prinivil) 10 mg DAILY PO Last administered on 08/23/18 07:59; Start 08/12/18 at 09:00 Nitroglycerin (Nitrostat) 0.4 mg PRN Q5MIN PRN SL CHEST PAIN; Start 08/11/18 at 22:15 Nystatin (Nystop) 1 yaima BID TP Last administered on 08/24/18 22:50; Start at 09:00 Allopurinol (Zyloprim) 100 mg DAILY PO Last administered on 08/24/18 08:17; Start 08/12/18 at 09:00 Carvedilol (Coreg) 12.5 mg BIDWMEALS PO Last administered on 08/24/18 17:11; Start 08/12/18 at 08:00 Folic Acid (Folic Acid) 1 mg DAILY PO Last administered on 08/24/18 08:16; Start 08/12/18 at 09:00 Furosemide (Lasix) 40 mg DAILY PO Last administered on 08/23/18 08:00; Start 08/12/18 at 09:00 Insulin Human Lispro (HumaLOG) 5 units TIDWMEALS SQ Last administered on 17:14; Start 08/12/18 at 08:00 Insulin Glargine (Lantus) 10 units QHS SQ Last administered on 08/24/18 20:44; Start 08/11/18 at 23:00 Loperamide HCl (Imodium) 2 mg PRN Q6HRS PRN PO DIARRHEA; Start 08/11/18 at 22: 45 Non-Formulary Medication (Magnesium Hydroxide (Milk Of Magnesia)) 2,400 mg PRN DAILY PRN PO CONSTIPATION; Start 08/11/18 at 22:15; Status UNV Metformin HCl (Glucophage) 1,000 mg BIDWMEALS PO Last administered on 08/24/18 17:11; Start 08/12/18 at 08:00 Methotrexate (Rheumatrex) 15 mg WEEKLY PO Last administered on 08/18/18at 12:12 ; Start 08/18/18 at 09:00 Multivitamins/ Calcium (Thera-M Plus) 1 tab DAILY PO Last administered on 08:16; Start 08/12/18 at 09:00 Glucose (Insta-Glucose) 15 gm PRN Q15MIN PRN PO LOW BLOOD SUGAR; Start at 08:15 Divalproex Sodium (Depakote Sprinkles) 500 mg BIDWMEALS PO ; Start 08/13/18 at 20:27; Stop 08/13/18 at 20:36; Status DC Duloxetine HCl (Cymbalta) 60 mg DAILY PO Last administered on 08/24/18 08:17; Start 08/14/18 at 09:00 Divalproex Sodium (Depakote Sprinkles) 500 mg BIDWMEALS PO Last administered on 08/24/18at 17:11; Start 08/14/18 at 08:00 Risperidone (RisperDAL) 1.5 mg DAILY PO ; Start 08/14/18 at 19:00; Stop at 19:00; Status DC Risperidone (RisperDAL) 2 mg HS PO Last administered on 08/16/18at 18:51; Start 08/14/18 at 21:00; Stop 08/17/18 at 18:30; Status DC Risperidone (RisperDAL) 1.5 mg HS PO ; Start 08/18/18 at 21:00; Stop 08/18/18 at 21:00; Status DC Risperidone (RisperDAL) 1.5 mg DAILY PO Last administered on 08/17/18at 08:08; Start 08/15/18 at 09:00; Stop 08/17/18 at 18:30; Status DC Amantadine HCl (Symmetrel) 100 mg DAILY PO Last administered on 08/23/18 08:00 ; Start 08/17/18 at 09:00; Stop 08/23/18 at 21:37; Status DC Risperidone (RisperDAL) 1.5 mg BID PO Last administered on 08/19/18at 08:15; Start 08/17/18 at 21:00; Stop 08/19/18 at 15:58; Status DC Risperidone (RisperDAL) 1 mg BID PO Last administered on 08/22/18at 11:33; Start 08/19/18 at 21:00; Stop 08/22/18 at 17:30; Status DC Risperidone (RisperDAL) 1 mg QHS PO Last administered on 08/24/18at 20:41; Start 08/22/18 at 21:00 Risperidone (RisperDAL) 0.5 mg DAILY PO Last administered on 08/24/18 08:18; Start 08/23/18 at 09:00; Stop 08/25/18 at 09:00 Amantadine HCl (Symmetrel) 100 mg BID PO Last administered on 08/24/18 20:41; Start 08/24/18 at 09:00 Active Scripts Active Reported Xanax (Alprazolam) 0.5 Mg Tablet 0.5 Mg PO PRN Q6HRS PRN Hydrocodone-Apap 5-325 (Hydrocodone Bit/Acetaminophen) 1 Each Tablet 1 Tab PO PRN Q6HRS PRN Voltaren (Diclofenac Sodium) 100 Gm Gel..gram. 4 Gm TP QID Nystatin 15 Gm Powder 1 Yaima TP BID Tums (Calcium Carbonate) 200 Mg Tab.chew 2 Tab PO PRN Q6HRS PRN Nitrostat (Nitroglycerin) 0.4 Mg Tab.subl 0.4 Mg SL PRN Q5MIN PRN Milk Of Magnesia (Magnesium Hydroxide) 2,400 Mg/10 Ml Oral.susp 2,400 Mg PO PRN DAILY PRN Loperamide (Loperamide Hcl) 2 Mg Tablet 2 Mg PO PRN Q6HRS PRN Vitamin C (Ascorbic Acid) 500 Mg Tablet 500 Mg PO BIDWMEALS Risperdal (Risperidone) 2 Mg Tablet 2 Mg PO BIDWMEALS Mucinex (Guaifenesin) 600 Mg Tablet.er 600 Mg PO BIDWMEALS Metformin Hcl 1,000 Mg Tablet 1,000 Mg PO BIDWMEALS Cymbalta (Duloxetine Hcl) 60 Mg Capsule.dr 60 Mg PO BIDWMEALS Depakote Sprinkle (Divalproex Sodium) 125 Mg Cap.sprink 250 Mg PO BIDWMEALS Coreg (Carvedilol) 12.5 Mg Tablet 12.5 Mg PO BIDWMEALS Vitamin D3 (Cholecalciferol (Vitamin D3)) 1,000 Unit Tablet 2,000 Unit PO DAILY Trazodone Hcl 100 Mg Tablet 100 Mg PO HS Multivitamins (Multivitamin) 1 Each Tablet 1 Tab PO DAILY Methotrexate (Methotrexate Sodium) 2.5 Mg Tablet 15 Mg PO WEEKLY Lisinopril 10 Mg Tablet 10 Mg PO DAILY Levothyroxine Sodium 100 Mcg Tablet 100 Mcg PO DAILYAC Lasix (Furosemide) 40 Mg Tablet 40 Mg PO DAILY Folic Acid 1 Mg Tablet 1 Mg PO DAILY Allopurinol 100 Mg Tablet 100 Mg PO DAILY Novolog (Insulin Aspart) 100 Unit/1 Ml Vial 5 Unit SQ TIDWMEALS Levemir (Insulin Detemir) 100 Unit/1 Ml Vial 10 Unit SQ HS I have reviewed the current psychotropics carefully including drug interactions. Risk benefit ratio favors no change other than as noted in my dictated progress note. Diagnosis: Problems: (1) Anxiety disorder (2) Major depressive disorder, recurrent episode (3) Impulse control disorder (4) Dementia in Alzheimer's disease with delusions (5) Dementia in Alzheimer's disease with depression (6) Dementia, vascular, with delusions (7) Dementia, vascular, with depression KAITLIN DREW MD Aug 24, 2018 22:52
--- NOTE | 2018-08-25 00:06 | PN ---
DATE: 08/23/2018 PSYCHIATRIC PROGRESS NOTE This late entry 08/23/2018 covers elements not covered in my initial note. SUBJECTIVE: I met with the patient in the evening. The patient slept 5-3/4 hours previous night, takes her medications whole, withdrawn. REVIEW OF SYSTEMS: Extremely hard of hearing, difficulty with the speech consequent to the hearing deficit. No CV, , eye system symptoms on review. Reliability poor. MENTAL STATUS EXAM: Oriented to herself, situations. Speech as above. Abstraction fair. Computation difficult to assess. No active hallucinations, suicidal or homicidal ideation and she has not been aggressive. LABORATORY DATA: Reviewed. IMPRESSION: Bipolar 1 disorder, mixed with psychotic features. Rest unchanged. PLAN: She is currently on Risperdal 0.5 mg in the morning and 1 mg at night. We do not see any overt psychotic symptoms, and we will stop the Risperdal 0.5 mg daily after the last dose was decreased. Rest unchanged from initial note. Valproic acid level therapeutic at 71. MAN Vanesa DREW MD DR: STEFAN/satya JOB#: [id number] / [id number]
[2018-08-25 05:53] VITALS: BP 133/89
[2018-08-25] MEDS: LEVOTHYROXINE 100 MCG TABLET PO SCH (06:12)
[2018-08-25] MEDS: INSULIN LISPRO 300 UNITS/3 ML INSULN.PEN. SQ SCH ×3 (08:00→17:29)
[2018-08-25] MEDS: DIVALPROEX 125 MG CAP.SPRINK PO SCH ×2 (11:13→17:58)
[2018-08-25] MEDS: AMANTADINE HCL 100 MG CAPSULE PO SCH ×2 (11:13→20:03)
[2018-08-25] MEDS: ALLOPURINOL 100 MG TABLET. PO SCH (11:13)
[2018-08-25] MEDS: DULoxetine HCL 60 MG CAPSULE.DR PO SCH (11:14)
[2018-08-25] MEDS: risperiDONE 0.25 MG TABLET. PO SCH (11:14)
[2018-08-25] MEDS: LISINOPRIL 10 MG TABLET PO SCH (11:14)
[2018-08-25] MEDS: FUROSEMIDE 40 MG TABLET PO SCH (11:15)
[2018-08-25] MEDS: CARVEDILOL 12.5 MG TABLET PO SCH ×2 (11:15→17:59)
[2018-08-25] MEDS: CHOLECALCIFEROL (VITAMIN D3) 1,000 UNIT TABLET PO SCH (11:15)
[2018-08-25] MEDS: FOLIC ACID 1 MG TABLET PO SCH (11:16)
[2018-08-25] MEDS: ASCORBIC ACID 500 MG TABLET PO SCH ×2 (11:16→17:59)
[2018-08-25] MEDS: MULTIVITAMIN with MINERAL TABLET. PO SCH (11:16)
[2018-08-25] MEDS: metFORMIN 500 MG TABLET PO SCH ×2 (11:16→17:59)
[2018-08-25] MEDS: METHOTREXATE SODIUM 2.5 MG TABLET PO SCH (11:19)
[2018-08-25] MEDS: NYSTATIN TOPICAL POWDER 15GM BOTTLE. TP SCH ×2 (11:20→20:06)
[2018-08-25] MEDS: DICLOFENAC SODIUM 1% TOPICAL GEL 100GM TUBE. TP SCH ×4 (11:20→20:03)
[2018-08-25 16:05] VITALS: BP 109/95
[2018-08-25] MEDS: traZODone 100 MG TABLET. PO SCH (20:00)
[2018-08-25] MEDS: INSULIN GLARGINE 300 UNITS/3 ML INSULN.PEN. SQ SCH (20:05)
[2018-08-25] MEDS ORDERED: risperiDONE 2 MG TABLET. PO SCH (21:00)
--- NOTE | 2018-08-25 23:05 | PDOC ---
Exam Note: Johnnie Note: Please also refer to the separate dictated note~for this date of service dictated separately.~Patient seen individually. Discussed the patient with Nursing staff reviewed the chart.~Reviewed interim history and current functioning. Reviewed vital signs,~Labs/ Radiology~and current medications noted below. Continue current treatment with the changes noted in the dictated addendum note Assessment: Vital Signs: Vital Signs Date Time Temp Pulse Resp B/P (MAP) Pulse Ox O2 Delivery O2 Flow Rate FiO2 08/25/18 17:59 86 109/95 08/25/18 16:05 97.5 20 94 Room Air I&O Intake and Output 08/25/18 07:01 Intake Total 1080 ml Balance 1080 ml Intake Oral 1080 ml # Voids 1 Labs: Laboratory Tests Test 08/25/18 07:20 08/25/18 12:13 08/25/18 17:12 08/25/18 19:15 Glucose (Fingerstick) 78 mg/dL (70-99) 126 mg/dL (70-99) H 95 mg/dL (70-99) 129 mg/dL (70-99) H Current Medications: Meds: Current Medications Acetaminophen (Tylenol) 650 mg PRN Q6HRS PRN PO PAIN / TEMP; Start 08/11/18 at 21:00 Multi-Ingredient Ointment (Analgesic [place]) 1 yaima PRN QID PRN TP MUSCLE PAIN; Start 08/11/18 at 21:00 Al Hydroxide/Mg Hydroxide (Mylanta Plus Xs) 15 ml PRN AFTMEALHC PRN PO DYSPEPSIA; Start 08/11/18 at 21:00 Magnesium Hydroxide (Milk Of Magnesia) 2,400 mg PRN QHS PRN PO CONSTIPATION; Start 08/11/18 at 21:00 Alprazolam (Xanax) 0.5 mg PRN Q6HRS PRN PO ANXIETY / AGITATION Last administered on 08/21/18at 20:06; Start 08/11/18 at 22:30 Divalproex Sodium (Depakote Sprinkles) 250 mg BIDWMEALS PO Last administered on 08/13/18at 18:08; Start 08/12/18 at 08:00; Stop 08/13/18 at 20:26; Status DC Duloxetine HCl (Cymbalta) 60 mg BIDWMEALS PO Last administered on 08/13/18at 18 :08; Start 08/12/18 at 08:00; Stop 08/13/18 at 20:26; Status DC Risperidone (RisperDAL) 2 mg BIDWMEALS PO Last administered on 08/14/18 17:45 ; Start 08/12/18 at 08:00; Stop 08/14/18 at 18:45; Status DC Trazodone HCl (Desyrel) 100 mg HS PO Last administered on 08/25/18 20:00; Start 08/11/18 at 22:30 Ascorbic Acid (Vitamin C) 500 mg BIDWMEALS PO Last administered on 08/25/18 17: 59; Start 08/12/18 at 08:00 Calcium Carbonate/ Glycine (Tums) 500 mg PRN Q6HRS PRN PO INDIGESTION; Start 08/11/18 at 22:15 Vitamin D (Vitamin D3) 2,000 unit DAILY PO Last administered on 08/25/18 11:15 ; Start 08/12/18 at 09:00 Diclofenac Sodium (Voltaren) 1 yaima QID TP Last administered on 08/25/18 20:03; Start 08/12/18 at 09:00 Guaifenesin (Mucinex Er) 600 mg BIDWMEALS PO Last administered on 08/25/18 17: 59; Start 08/12/18 at 08:00 Acetaminophen/ Hydrocodone Bitart (Lortab 5/325) 1 tab PRN Q6HRS PRN PO PAIN; Start 08/11/18 at 22:15 Levothyroxine Sodium (Synthroid) 100 mcg DAILY06 PO Last administered on 06:12; Start 08/12/18 at 06:00 Lisinopril (Prinivil) 10 mg DAILY PO Last administered on 08/25/18 11:14; Start 08/12/18 at 09:00 Nitroglycerin (Nitrostat) 0.4 mg PRN Q5MIN PRN SL CHEST PAIN; Start 08/11/18 at 22:15 Nystatin (Nystop) 1 yaima BID TP Last administered on 08/25/18 20:06; Start at 09:00 Allopurinol (Zyloprim) 100 mg DAILY PO Last administered on 1/3/19at 11:13; Start 08/12/18 at 09:00 Carvedilol (Coreg) 12.5 mg BIDWMEALS PO Last administered on 08/25/18 17:59; Start 08/12/18 at 08:00 Folic Acid (Folic Acid) 1 mg DAILY PO Last administered on 08/25/18 11:16; Start 08/12/18 at 09:00 Furosemide (Lasix) 40 mg DAILY PO Last administered on 08/25/18 11:15; Start 08/12/18 at 09:00 Insulin Human Lispro (HumaLOG) 5 units TIDWMEALS SQ Last administered on 17:29; Start 08/12/18 at 08:00 Insulin Glargine (Lantus) 10 units QHS SQ Last administered on 08/25/18 20:05; Start 08/11/18 at 23:00 Loperamide HCl (Imodium) 2 mg PRN Q6HRS PRN PO DIARRHEA; Start 08/11/18 at 22: 45 Non-Formulary Medication (Magnesium Hydroxide (Milk Of Magnesia)) 2,400 mg PRN DAILY PRN PO CONSTIPATION; Start 08/11/18 at 22:15; Status UNV Metformin HCl (Glucophage) 1,000 mg BIDWMEALS PO Last administered on 08/25/18 17:59; Start 08/12/18 at 08:00 Methotrexate (Rheumatrex) 15 mg WEEKLY PO Last administered on 08/25/18 11:19; Start 08/18/18 at 09:00 Multivitamins/ Calcium (Thera-M Plus) 1 tab DAILY PO Last administered on 11:16; Start 08/12/18 at 09:00 Glucose (Insta-Glucose) 15 gm PRN Q15MIN PRN PO LOW BLOOD SUGAR; Start at 08:15 Divalproex Sodium (Depakote Sprinkles) 500 mg BIDWMEALS PO ; Start 08/13/18 at 20:27; Stop 08/13/18 at 20:36; Status DC Duloxetine HCl (Cymbalta) 60 mg DAILY PO Last administered on 08/25/18 11:14; Start 08/14/18 at 09:00 Divalproex Sodium (Depakote Sprinkles) 500 mg BIDWMEALS PO Last administered on 08/25/18at 17:58; Start 08/14/18 at 08:00 Risperidone (RisperDAL) 1.5 mg DAILY PO ; Start 08/14/18 at 19:00; Stop at 19:00; Status DC Risperidone (RisperDAL) 2 mg HS PO Last administered on 08/16/18at 18:51; Start 08/14/18 at 21:00; Stop 08/17/18 at 18:30; Status DC Risperidone (RisperDAL) 1.5 mg HS PO ; Start 08/18/18 at 21:00; Stop 08/18/18 at 21:00; Status DC Risperidone (RisperDAL) 1.5 mg DAILY PO Last administered on 08/17/18at 08:08; Start 08/15/18 at 09:00; Stop 08/17/18 at 18:30; Status DC Amantadine HCl (Symmetrel) 100 mg DAILY PO Last administered on 08/23/18at 08:00 ; Start 08/17/18 at 09:00; Stop 08/23/18 at 21:37; Status DC Risperidone (RisperDAL) 1.5 mg BID PO Last administered on 08/19/18at 08:15; Start 08/17/18 at 21:00; Stop 08/19/18 at 15:58; Status DC Risperidone (RisperDAL) 1 mg BID PO Last administered on 08/22/18at 11:33; Start 08/19/18 at 21:00; Stop 08/22/18 at 17:30; Status DC Risperidone (RisperDAL) 1 mg QHS PO Last administered on 08/24/18at 20:41; Start 08/22/18 at 21:00; Stop 08/25/18 at 18:41; Status DC Risperidone (RisperDAL) 0.5 mg DAILY PO Last administered on 08/25/18at 11:14; Start 08/23/18 at 09:00; Stop 08/25/18 at 09:00; Status DC Amantadine HCl (Symmetrel) 100 mg BID PO Last administered on 08/25/18at 20:03; Start 08/24/18 at 09:00 Risperidone (RisperDAL) 1.5 mg BID PO ; Start 08/26/18 at 09:00 Risperidone (RisperDAL) 2 mg HS PO Last administered on 08/25/18at 20:03; Start 08/25/18 at 21:00; Stop 08/25/18 at 21:01; Status DC Active Scripts Active Reported Xanax (Alprazolam) 0.5 Mg Tablet 0.5 Mg PO PRN Q6HRS PRN Hydrocodone-Apap 5-325 (Hydrocodone Bit/Acetaminophen) 1 Each Tablet 1 Tab PO PRN Q6HRS PRN Voltaren (Diclofenac Sodium) 100 Gm Gel..gram. 4 Gm TP QID Nystatin 15 Gm Powder 1 Yaima TP BID Tums (Calcium Carbonate) 200 Mg Tab.chew 2 Tab PO PRN Q6HRS PRN Nitrostat (Nitroglycerin) 0.4 Mg Tab.subl 0.4 Mg SL PRN Q5MIN PRN Milk Of Magnesia (Magnesium Hydroxide) 2,400 Mg/10 Ml Oral.susp 2,400 Mg PO PRN DAILY PRN Loperamide (Loperamide Hcl) 2 Mg Tablet 2 Mg PO PRN Q6HRS PRN Vitamin C (Ascorbic Acid) 500 Mg Tablet 500 Mg PO BIDWMEALS Risperdal (Risperidone) 2 Mg Tablet 2 Mg PO BIDWMEALS Mucinex (Guaifenesin) 600 Mg Tablet.er 600 Mg PO BIDWMEALS Metformin Hcl 1,000 Mg Tablet 1,000 Mg PO BIDWMEALS Cymbalta (Duloxetine Hcl) 60 Mg Capsule.dr 60 Mg PO BIDWMEALS Depakote Sprinkle (Divalproex Sodium) 125 Mg Cap.sprink 250 Mg PO BIDWMEALS Coreg (Carvedilol) 12.5 Mg Tablet 12.5 Mg PO BIDWMEALS Vitamin D3 (Cholecalciferol (Vitamin D3)) 1,000 Unit Tablet 2,000 Unit PO DAILY Trazodone Hcl 100 Mg Tablet 100 Mg PO HS Multivitamins (Multivitamin) 1 Each Tablet 1 Tab PO DAILY Methotrexate (Methotrexate Sodium) 2.5 Mg Tablet 15 Mg PO WEEKLY Lisinopril 10 Mg Tablet 10 Mg PO DAILY Levothyroxine Sodium 100 Mcg Tablet 100 Mcg PO DAILYAC Lasix (Furosemide) 40 Mg Tablet 40 Mg PO DAILY Folic Acid 1 Mg Tablet 1 Mg PO DAILY Allopurinol 100 Mg Tablet 100 Mg PO DAILY Novolog (Insulin Aspart) 100 Unit/1 Ml Vial 5 Unit SQ TIDWMEALS Levemir (Insulin Detemir) 100 Unit/1 Ml Vial 10 Unit SQ HS I have reviewed the current psychotropics carefully including drug interactions. Risk benefit ratio favors no change other than as noted in my dictated progress note. Diagnosis: Problems: (1) Anxiety disorder (2) Major depressive disorder, recurrent episode (3) Impulse control disorder (4) Dementia in Alzheimer's disease with delusions (5) Dementia in Alzheimer's disease with depression (6) Dementia, vascular, with delusions (7) Dementia, vascular, with depression KAITLIN DREW MD Aug 25, 2018 23:05
[2018-08-26 05:42] VITALS: BP 102/60
[2018-08-26] MEDS: LEVOTHYROXINE 100 MCG TABLET PO SCH (06:14)
[2018-08-26] MEDS: INSULIN LISPRO 300 UNITS/3 ML INSULN.PEN. SQ SCH ×3 (08:00→17:30)
[2018-08-26] MEDS: DICLOFENAC SODIUM 1% TOPICAL GEL 100GM TUBE. TP SCH ×4 (09:00→21:00)
[2018-08-26 09:49] LABS: BASO % 1 % (0-3); EOS # 0.2 x10^3/uL (0.0-0.7); EOS % 5 % (0-3); HEMATOCRIT 33.7 % (36.0-47.0); HEMOGLOBIN 11.2 g/dL (12.0-15.5); LYMPH # 1.9 x10^3/uL (1.0-4.8); LYMPH % 45 % (24-48); MEAN CORPUSCULAR HEMOGLOBIN 33 pg (25-35); MEAN CORPUSCULAR HGB CONC 33 g/dL (31-37); MEAN CORPUSCULAR VOLUME 98 fL (79-100); MONO # 0.7 x10^3/uL (0.0-1.1); MONO % 16 % (0-9); NEUT # 1.4 x10^3uL (1.8-7.7); NEUT % 34 % (31-73); PLATELET COUNT 178 x10^3/uL (140-400); RED BLOOD COUNT 3.44 x10^6/uL (3.50-5.40); RED CELL DISTRIBUTION WIDTH 17.4 % (11.5-14.5); WHITE BLOOD COUNT 4.2 x10^3/uL (4.0-11.0)
[2018-08-26 10:00] LABS: ALBUMIN 2.3 g/dL (3.4-5.0); ALBUMIN/GLOBULIN RATIO 0.8 (1.0-1.7); CALCIUM 8.4 mg/dL (8.5-10.1); CREATININE 0.9 mg/dL (0.6-1.0); GFR 64.1; POTASSIUM 3.6 mmol/L (3.5-5.1); TOTAL BILIRUBIN 0.3 mg/dL (0.2-1.0); TOTAL PROTEIN 5.3 g/dL (6.4-8.2)
[2018-08-26] MEDS: metFORMIN 500 MG TABLET PO SCH ×2 (12:37→17:28)
[2018-08-26] MEDS: ALLOPURINOL 100 MG TABLET. PO SCH (12:37)
[2018-08-26] MEDS: DULoxetine HCL 60 MG CAPSULE.DR PO SCH (12:37)
[2018-08-26] MEDS: CHOLECALCIFEROL (VITAMIN D3) 1,000 UNIT TABLET PO SCH (12:37)
[2018-08-26] MEDS: DIVALPROEX 125 MG CAP.SPRINK PO SCH ×2 (12:37→17:28)
[2018-08-26] MEDS: ASCORBIC ACID 500 MG TABLET PO SCH ×2 (12:37→17:28)
[2018-08-26] MEDS: FOLIC ACID 1 MG TABLET PO SCH (12:38)
[2018-08-26] MEDS: MULTIVITAMIN with MINERAL TABLET. PO SCH (12:38)
[2018-08-26] MEDS: LISINOPRIL 10 MG TABLET PO SCH (12:38)
[2018-08-26] MEDS: FUROSEMIDE 40 MG TABLET PO SCH (12:38)
[2018-08-26] MEDS: risperiDONE 0.5 MG TABLET. PO SCH ×2 (12:42→21:07)
[2018-08-26] MEDS: CARVEDILOL 12.5 MG TABLET PO SCH ×2 (12:42→17:29)
[2018-08-26] MEDS: NYSTATIN TOPICAL POWDER 15GM BOTTLE. TP SCH ×2 (12:43→21:06)
[2018-08-26] MEDS: AMANTADINE HCL 100 MG CAPSULE PO SCH ×2 (12:43→21:06)
--- NOTE | 2018-08-26 16:46 | PN ---
DATE: 08/24/2018 PSYCHIATRIC PROGRESS NOTE This late entry 08/24/2018 covers elements not covered in my initial note. SUBJECTIVE: I met with the patient in the evening. The patient slept 4-1/4 hours previous night. She has been somewhat withdrawn, but no behaviors noted, slept in the morning and she was in bed till noon. Dr. Solomon started her on amantadine 100 mg b.i.d. 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 No CV, , pulmonary, eye system symptoms on review. Reliability poor. MENTAL STATUS EXAM: Oriented to herself. Insight, judgment, recent memory is impaired. Language function intact. Attention span short. Mood and affect remain somewhat withdrawn. LABORATORY DATA: Reviewed. IMPRESSION: Bipolar 1 disorder, mixed with psychotic features; cognitive disorder, unspecified. Rest unchanged. PLAN: No change from initial note. If psychotic symptoms resurface, we will have to increase the Risperdal back close to the prior dosage. I have been trying to taper it to see what is the minimum we can get by with bed rest unchanged. MAN Vanesa DREW MD DR: STEFAN/satya JOB#: [id number] / [id number]
[2018-08-26 17:06] VITALS: BP 140/60
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
[2018-08-26] MEDS: traZODone 100 MG TABLET. PO SCH (21:06)
[2018-08-26] MEDS: INSULIN GLARGINE 300 UNITS/3 ML INSULN.PEN. SQ SCH (21:08)
--- NOTE | 2018-08-26 22:50 | PDOC ---
Exam Note: Johnnie Note: Please also refer to the separate dictated note~for this date of service dictated separately.~Patient seen individually. Discussed the patient with Nursing staff reviewed the chart.~Reviewed interim history and current functioning. Reviewed vital signs,~Labs/ Radiology~and current medications noted below. Continue current treatment with the changes noted in the dictated addendum note Assessment: Vital Signs: Vital Signs Date Time Temp Pulse Resp B/P (MAP) Pulse Ox O2 Delivery O2 Flow Rate FiO2 08/26/18 17:29 65 140/60 08/26/18 17:06 98.0 16 95 08/25/18 16:05 Room Air I&O Intake and Output 08/26/18 07:01 Intake Total 1320 ml Balance 1320 ml Intake Oral 1320 ml # Bowel Movements 1 Labs: Laboratory Tests Test 08/26/18 07:06 08/26/18 09:23 08/26/18 12:08 08/26/18 17:06 Glucose (Fingerstick) 74 mg/dL (70-99) 80 mg/dL (70-99) 139 mg/dL (70-99) H White Blood Count 4.2 x10^3/uL (4.0-11.0) Red Blood Count 3.44 x10^6/uL (3.50-5.40) L Hemoglobin 11.2 g/dL (12.0-15.5) L Hematocrit 33.7 % (36.0-47.0) L Mean Corpuscular Volume 98 fL (79-100) Mean Corpuscular Hemoglobin 33 pg (25-35) Mean Corpuscular Hemoglobin Concent 33 g/dL (31-37) Red Cell Distribution Width 17.4 % (11.5-14.5) H Platelet Count 178 x10^3/uL (140-400) Neutrophils (%) (Auto) 34 % (31-73) Lymphocytes (%) (Auto) 45 % (24-48) Monocytes (%) (Auto) 16 % (0-9) H Eosinophils (%) (Auto) 5 % (0-3) H Basophils (%) (Auto) 1 % (0-3) Neutrophils # (Auto) 1.4 x10^3uL (1.8-7.7) L Lymphocytes # (Auto) 1.9 x10^3/uL (1.0-4.8) Monocytes # (Auto) 0.7 x10^3/uL (0.0-1.1) Eosinophils # (Auto) 0.2 x10^3/uL (0.0-0.7) Basophils # (Auto) 0.0 x10^3/uL (0.0-0.2) Sodium Level 143 mmol/L (136-145) Potassium Level 3.6 mmol/L (3.5-5.1) Chloride Level 106 mmol/L (98-107) Carbon Dioxide Level 31 mmol/L (21-32) Anion Gap 6 (6-14) Blood Urea Nitrogen 8 mg/dL (7-20) Creatinine 0.9 mg/dL (0.6-1.0) Estimated GFR (Cockcroft-Gault) 64.1 BUN/Creatinine Ratio 9 (6-20) Glucose Level 81 mg/dL (70-99) Calcium Level 8.4 mg/dL (8.5-10.1) L Total Bilirubin 0.3 mg/dL (0.2-1.0) Aspartate Amino Transferase (AST) 11 U/L (15-37) L Alanine Aminotransferase (ALT) 11 U/L (14-59) L Alkaline Phosphatase 59 U/L (46-116) Total Protein 5.3 g/dL (6.4-8.2) L Albumin 2.3 g/dL (3.4-5.0) L Albumin/Globulin Ratio 0.8 (1.0-1.7) L Test 08/26/18 19:11 Glucose (Fingerstick) 138 mg/dL (70-99) H Current Medications: Meds: Current Medications Acetaminophen (Tylenol) 650 mg PRN Q6HRS PRN PO PAIN / TEMP; Start 08/11/18 at 21:00 Multi-Ingredient Ointment (Analgesic [place]) 1 yaima PRN QID PRN TP MUSCLE PAIN; Start 08/11/18 at 21:00 Al Hydroxide/Mg Hydroxide (Mylanta Plus Xs) 15 ml PRN AFTMEALHC PRN PO DYSPEPSIA; Start 08/11/18 at 21:00 Magnesium Hydroxide (Milk Of Magnesia) 2,400 mg PRN QHS PRN PO CONSTIPATION; Start 08/11/18 at 21:00 Alprazolam (Xanax) 0.5 mg PRN Q6HRS PRN PO ANXIETY / AGITATION Last administered on 08/21/18 20:06; Start 08/11/18 at 22:30 Divalproex Sodium (Depakote Sprinkles) 250 mg BIDWMEALS PO Last administered on 08/13/18at 18:08; Start 08/12/18 at 08:00; Stop 08/13/18 at 20:26; Status DC Duloxetine HCl (Cymbalta) 60 mg BIDWMEALS PO Last administered on 08/13/18at 18 :08; Start 08/12/18 at 08:00; Stop 08/13/18 at 20:26; Status DC Risperidone (RisperDAL) 2 mg BIDWMEALS PO Last administered on 08/14/18at 17:45 ; Start 08/12/18 at 08:00; Stop 08/14/18 at 18:45; Status DC Trazodone HCl (Desyrel) 100 mg HS PO Last administered on 08/26/18 21:06; Start 08/11/18 at 22:30 Ascorbic Acid (Vitamin C) 500 mg BIDWMEALS PO Last administered on 08/26/18 17: 28; Start 08/12/18 at 08:00 Calcium Carbonate/ Glycine (Tums) 500 mg PRN Q6HRS PRN PO INDIGESTION; Start 08/11/18 at 22:15 Vitamin D (Vitamin D3) 2,000 unit DAILY PO Last administered on 08/26/18 12:37 ; Start 08/12/18 at 09:00 Diclofenac Sodium (Voltaren) 1 yaima QID TP Last administered on 08/26/18 17:31; Start 08/12/18 at 09:00 Guaifenesin (Mucinex Er) 600 mg BIDWMEALS PO Last administered on 08/26/18 17: 28; Start 08/12/18 at 08:00 Acetaminophen/ Hydrocodone Bitart (Lortab 5/325) 1 tab PRN Q6HRS PRN PO PAIN; Start 08/11/18 at 22:15 Levothyroxine Sodium (Synthroid) 100 mcg DAILY06 PO Last administered on 06:14; Start 08/12/18 at 06:00 Lisinopril (Prinivil) 10 mg DAILY PO Last administered on 08/26/18 12:38; Start 08/12/18 at 09:00 Nitroglycerin (Nitrostat) 0.4 mg PRN Q5MIN PRN SL CHEST PAIN; Start 08/11/18 at 22:15 Nystatin (Nystop) 1 yaima BID TP Last administered on 08/26/18 21:06; Start at 09:00 Allopurinol (Zyloprim) 100 mg DAILY PO Last administered on 08/26/18 12:37; Start 08/12/18 at 09:00 Carvedilol (Coreg) 12.5 mg BIDWMEALS PO Last administered on 08/26/18 17:29; Start 08/12/18 at 08:00 Folic Acid (Folic Acid) 1 mg DAILY PO Last administered on 08/26/18 12:38; Start 08/12/18 at 09:00 Furosemide (Lasix) 40 mg DAILY PO Last administered on 08/26/18 12:38; Start 08/12/18 at 09:00 Insulin Human Lispro (HumaLOG) 5 units TIDWMEALS SQ Last administered on 17:30; Start 08/12/18 at 08:00 Insulin Glargine (Lantus) 10 units QHS SQ Last administered on 08/26/18 21:08; Start 08/11/18 at 23:00 Loperamide HCl (Imodium) 2 mg PRN Q6HRS PRN PO DIARRHEA; Start 08/11/18 at 22: 45 Non-Formulary Medication (Magnesium Hydroxide (Milk Of Magnesia)) 2,400 mg PRN DAILY PRN PO CONSTIPATION; Start 08/11/18 at 22:15; Status UNV Metformin HCl (Glucophage) 1,000 mg BIDWMEALS PO Last administered on 08/26/18 17:28; Start 08/12/18 at 08:00 Methotrexate (Rheumatrex) 15 mg WEEKLY PO Last administered on 08/25/18 11:19; Start 08/18/18 at 09:00 Multivitamins/ Calcium (Thera-M Plus) 1 tab DAILY PO Last administered on 12:38; Start 08/12/18 at 09:00 Glucose (Insta-Glucose) 15 gm PRN Q15MIN PRN PO LOW BLOOD SUGAR; Start at 08:15 Divalproex Sodium (Depakote Sprinkles) 500 mg BIDWMEALS PO ; Start 08/13/18 at 20:27; Stop 08/13/18 at 20:36; Status DC Duloxetine HCl (Cymbalta) 60 mg DAILY PO Last administered on 08/26/18at 12:37; Start 08/14/18 at 09:00 Divalproex Sodium (Depakote Sprinkles) 500 mg BIDWMEALS PO Last administered on 08/26/18 17:28; Start 08/14/18 at 08:00 Risperidone (RisperDAL) 1.5 mg DAILY PO ; Start 08/14/18 at 19:00; Stop at 19:00; Status DC Risperidone (RisperDAL) 2 mg HS PO Last administered on 08/16/18at 18:51; Start 08/14/18 at 21:00; Stop 08/17/18 at 18:30; Status DC Risperidone (RisperDAL) 1.5 mg HS PO ; Start 08/18/18 at 21:00; Stop 08/18/18 at 21:00; Status DC Risperidone (RisperDAL) 1.5 mg DAILY PO Last administered on 08/17/18at 08:08; Start 08/15/18 at 09:00; Stop 08/17/18 at 18:30; Status DC Amantadine HCl (Symmetrel) 100 mg DAILY PO Last administered on 08/23/18at 08:00 ; Start 08/17/18 at 09:00; Stop 08/23/18 at 21:37; Status DC Risperidone (RisperDAL) 1.5 mg BID PO Last administered on 08/19/18at 08:15; Start 08/17/18 at 21:00; Stop 08/19/18 at 15:58; Status DC Risperidone (RisperDAL) 1 mg BID PO Last administered on 08/22/18at 11:33; Start 08/19/18 at 21:00; Stop 08/22/18 at 17:30; Status DC Risperidone (RisperDAL) 1 mg QHS PO Last administered on 08/24/18at 20:41; Start 08/22/18 at 21:00; Stop 08/25/18 at 18:41; Status DC Risperidone (RisperDAL) 0.5 mg DAILY PO Last administered on 08/25/18at 11:14; Start 08/23/18 at 09:00; Stop 08/25/18 at 09:00; Status DC Amantadine HCl (Symmetrel) 100 mg BID PO Last administered on 08/26/18at 21:06; Start 08/24/18 at 09:00 Risperidone (RisperDAL) 1.5 mg BID PO Last administered on 08/26/18at 21:07; Start 08/26/18 at 09:00 Risperidone (RisperDAL) 2 mg HS PO Last administered on 08/25/18at 20:03; Start 08/25/18 at 21:00; Stop 08/25/18 at 21:01; Status DC Active Scripts Active Reported Xanax (Alprazolam) 0.5 Mg Tablet 0.5 Mg PO PRN Q6HRS PRN Hydrocodone-Apap 5-325 (Hydrocodone Bit/Acetaminophen) 1 Each Tablet 1 Tab PO PRN Q6HRS PRN Voltaren (Diclofenac Sodium) 100 Gm Gel..gram. 4 Gm TP QID Nystatin 15 Gm Powder 1 Yaima TP BID Tums (Calcium Carbonate) 200 Mg Tab.chew 2 Tab PO PRN Q6HRS PRN Nitrostat (Nitroglycerin) 0.4 Mg Tab.subl 0.4 Mg SL PRN Q5MIN PRN Milk Of Magnesia (Magnesium Hydroxide) 2,400 Mg/10 Ml Oral.susp 2,400 Mg PO PRN DAILY PRN Loperamide (Loperamide Hcl) 2 Mg Tablet 2 Mg PO PRN Q6HRS PRN Vitamin C (Ascorbic Acid) 500 Mg Tablet 500 Mg PO BIDWMEALS Risperdal (Risperidone) 2 Mg Tablet 2 Mg PO BIDWMEALS Mucinex (Guaifenesin) 600 Mg Tablet.er 600 Mg PO BIDWMEALS Metformin Hcl 1,000 Mg Tablet 1,000 Mg PO BIDWMEALS Cymbalta (Duloxetine Hcl) 60 Mg Capsule.dr 60 Mg PO BIDWMEALS Depakote Sprinkle (Divalproex Sodium) 125 Mg Cap.sprink 250 Mg PO BIDWMEALS Coreg (Carvedilol) 12.5 Mg Tablet 12.5 Mg PO BIDWMEALS Vitamin D3 (Cholecalciferol (Vitamin D3)) 1,000 Unit Tablet 2,000 Unit PO DAILY Trazodone Hcl 100 Mg Tablet 100 Mg PO HS Multivitamins (Multivitamin) 1 Each Tablet 1 Tab PO DAILY Methotrexate (Methotrexate Sodium) 2.5 Mg Tablet 15 Mg PO WEEKLY Lisinopril 10 Mg Tablet 10 Mg PO DAILY Levothyroxine Sodium 100 Mcg Tablet 100 Mcg PO DAILYAC Lasix (Furosemide) 40 Mg Tablet 40 Mg PO DAILY Folic Acid 1 Mg Tablet 1 Mg PO DAILY Allopurinol 100 Mg Tablet 100 Mg PO DAILY Novolog (Insulin Aspart) 100 Unit/1 Ml Vial 5 Unit SQ TIDWMEALS Levemir (Insulin Detemir) 100 Unit/1 Ml Vial 10 Unit SQ HS I have reviewed the current psychotropics carefully including drug interactions. Risk benefit ratio favors no change other than as noted in my dictated progress note. Diagnosis: Problems: (1) Anxiety disorder (2) Major depressive disorder, recurrent episode (3) Impulse control disorder (4) Dementia in Alzheimer's disease with delusions (5) Dementia in Alzheimer's disease with depression (6) Dementia, vascular, with delusions (7) Dementia, vascular, with depression KAITLIN DREW MD Aug 26, 2018 22:50
[2018-08-27] MEDS: LEVOTHYROXINE 100 MCG TABLET PO SCH (05:21)
[2018-08-27 05:48] VITALS: BP 124/70
[2018-08-27] MEDS: INSULIN LISPRO 300 UNITS/3 ML INSULN.PEN. SQ SCH ×4 (08:08→17:20)
[2018-08-27] MEDS: CARVEDILOL 12.5 MG TABLET PO SCH ×2 (08:16→17:24)
[2018-08-27] MEDS: DIVALPROEX 125 MG CAP.SPRINK PO SCH ×2 (08:16→17:24)
[2018-08-27] MEDS: ASCORBIC ACID 500 MG TABLET PO SCH ×2 (08:17→17:24)
[2018-08-27] MEDS: FOLIC ACID 1 MG TABLET PO SCH (08:17)
[2018-08-27] MEDS: DULoxetine HCL 60 MG CAPSULE.DR PO SCH (08:17)
[2018-08-27] MEDS: FUROSEMIDE 40 MG TABLET PO SCH (08:17)
[2018-08-27] MEDS: metFORMIN 500 MG TABLET PO SCH ×2 (08:17→17:24)
[2018-08-27] MEDS: AMANTADINE HCL 100 MG CAPSULE PO SCH ×2 (08:18→20:22)
[2018-08-27] MEDS: LISINOPRIL 10 MG TABLET PO SCH (08:18)
[2018-08-27] MEDS: risperiDONE 0.5 MG TABLET. PO SCH ×2 (08:18→20:21)
[2018-08-27] MEDS: MULTIVITAMIN with MINERAL TABLET. PO SCH (08:18)
[2018-08-27] MEDS: CHOLECALCIFEROL (VITAMIN D3) 1,000 UNIT TABLET PO SCH (08:19)
[2018-08-27] MEDS: ALLOPURINOL 100 MG TABLET. PO SCH (08:19)
[2018-08-27] MEDS: NYSTATIN TOPICAL POWDER 15GM BOTTLE. TP SCH ×2 (08:20→20:21)
[2018-08-27] MEDS: DICLOFENAC SODIUM 1% TOPICAL GEL 100GM TUBE. TP SCH ×4 (08:20→20:22)
[2018-08-27 16:22] VITALS: BP 102/64
[2018-08-27] MEDS: traZODone 100 MG TABLET. PO SCH (20:20)
[2018-08-27] MEDS: INSULIN GLARGINE 300 UNITS/3 ML INSULN.PEN. SQ SCH (20:21)
--- NOTE | 2018-08-27 21:10 | PDOC ---
Exam Note: Johnnie Note: Please also refer to the separate dictated note~for this date of service dictated separately.~Patient seen individually. Discussed the patient with Nursing staff reviewed the chart.~Reviewed interim history and current functioning. Reviewed vital signs,~Labs/ Radiology~and current medications noted below. Continue current treatment with the changes noted in the dictated addendum note Assessment: Vital Signs: Vital Signs Date Time Temp Pulse Resp B/P (MAP) Pulse Ox O2 Delivery O2 Flow Rate FiO2 08/27/18 17:24 93 102/64 08/27/18 16:22 97.5 18 92 Room Air I&O Intake and Output 08/27/18 07:01 Intake Total 1440 ml Balance 1440 ml Intake Oral 1440 ml Labs: Laboratory Tests Test 08/27/18 07:33 08/27/18 12:08 08/27/18 16:27 08/27/18 19:24 Glucose (Fingerstick) 80 mg/dL (70-99) 89 mg/dL (70-99) 111 mg/dL (70-99) H 99 mg/dL (70-99) Current Medications: Meds: Current Medications Acetaminophen (Tylenol) 650 mg PRN Q6HRS PRN PO PAIN / TEMP; Start 08/11/18 at 21:00 Multi-Ingredient Ointment (Analgesic [place]) 1 yaima PRN QID PRN TP MUSCLE PAIN; Start 08/11/18 at 21:00 Al Hydroxide/Mg Hydroxide (Mylanta Plus Xs) 15 ml PRN AFTMEALHC PRN PO DYSPEPSIA; Start 08/11/18 at 21:00 Magnesium Hydroxide (Milk Of Magnesia) 2,400 mg PRN QHS PRN PO CONSTIPATION; Start 08/11/18 at 21:00 Alprazolam (Xanax) 0.5 mg PRN Q6HRS PRN PO ANXIETY / AGITATION Last administered on 08/21/18at 20:06; Start 08/11/18 at 22:30 Divalproex Sodium (Depakote Sprinkles) 250 mg BIDWMEALS PO Last administered on 08/13/18at 18:08; Start 08/12/18 at 08:00; Stop 08/13/18 at 20:26; Status DC Duloxetine HCl (Cymbalta) 60 mg BIDWMEALS PO Last administered on 08/13/18at 18 :08; Start 08/12/18 at 08:00; Stop 08/13/18 at 20:26; Status DC Risperidone (RisperDAL) 2 mg BIDWMEALS PO Last administered on 08/14/18at 17:45 ; Start 08/12/18 at 08:00; Stop 08/14/18 at 18:45; Status DC Trazodone HCl (Desyrel) 100 mg HS PO Last administered on 08/27/18 20:20; Start 08/11/18 at 22:30 Ascorbic Acid (Vitamin C) 500 mg BIDWMEALS PO Last administered on 08/27/18 17: 24; Start 08/12/18 at 08:00 Calcium Carbonate/ Glycine (Tums) 500 mg PRN Q6HRS PRN PO INDIGESTION; Start 08/11/18 at 22:15 Vitamin D (Vitamin D3) 2,000 unit DAILY PO Last administered on 08/27/18 08:19 ; Start 08/12/18 at 09:00 Diclofenac Sodium (Voltaren) 1 yaima QID TP Last administered on 08/27/18 20:22; Start 08/12/18 at 09:00 Guaifenesin (Mucinex Er) 600 mg BIDWMEALS PO Last administered on 08/27/18 17: 24; Start 08/12/18 at 08:00 Acetaminophen/ Hydrocodone Bitart (Lortab 5/325) 1 tab PRN Q6HRS PRN PO PAIN; Start 08/11/18 at 22:15 Levothyroxine Sodium (Synthroid) 100 mcg DAILY06 PO Last administered on 05:21; Start 08/12/18 at 06:00 Lisinopril (Prinivil) 10 mg DAILY PO Last administered on 08/27/18 08:18; Start 08/12/18 at 09:00 Nitroglycerin (Nitrostat) 0.4 mg PRN Q5MIN PRN SL CHEST PAIN; Start 08/11/18 at 22:15 Nystatin (Nystop) 1 yaima BID TP Last administered on 08/27/18 20:21; Start at 09:00 Allopurinol (Zyloprim) 100 mg DAILY PO Last administered on 08/27/18 08:19; Start 08/12/18 at 09:00 Carvedilol (Coreg) 12.5 mg BIDWMEALS PO Last administered on 08/27/18 17:24; Start 08/12/18 at 08:00 Folic Acid (Folic Acid) 1 mg DAILY PO Last administered on 08/27/18 08:17; Start 08/12/18 at 09:00 Furosemide (Lasix) 40 mg DAILY PO Last administered on 08/27/18 08:17; Start 08/12/18 at 09:00 Insulin Human Lispro (HumaLOG) 5 units TIDWMEALS SQ Last administered on 17:20; Start 08/12/18 at 08:00 Insulin Glargine (Lantus) 10 units QHS SQ Last administered on 08/27/18 20:21; Start 08/11/18 at 23:00 Loperamide HCl (Imodium) 2 mg PRN Q6HRS PRN PO DIARRHEA; Start 08/11/18 at 22: 45 Non-Formulary Medication (Magnesium Hydroxide (Milk Of Magnesia)) 2,400 mg PRN DAILY PRN PO CONSTIPATION; Start 08/11/18 at 22:15; Status UNV Metformin HCl (Glucophage) 1,000 mg BIDWMEALS PO Last administered on 08/27/18 17:24; Start 08/12/18 at 08:00 Methotrexate (Rheumatrex) 15 mg WEEKLY PO Last administered on 08/25/18 11:19; Start 08/18/18 at 09:00 Multivitamins/ Calcium (Thera-M Plus) 1 tab DAILY PO Last administered on 08:18; Start 08/12/18 at 09:00 Glucose (Insta-Glucose) 15 gm PRN Q15MIN PRN PO LOW BLOOD SUGAR; Start at 08:15 Divalproex Sodium (Depakote Sprinkles) 500 mg BIDWMEALS PO ; Start 08/13/18 at 20:27; Stop 08/13/18 at 20:36; Status DC Duloxetine HCl (Cymbalta) 60 mg DAILY PO Last administered on 08/27/18 08:17; Start 08/14/18 at 09:00 Divalproex Sodium (Depakote Sprinkles) 500 mg BIDWMEALS PO Last administered on 08/27/18 17:24; Start 08/14/18 at 08:00 Risperidone (RisperDAL) 1.5 mg DAILY PO ; Start 08/14/18 at 19:00; Stop at 19:00; Status DC Risperidone (RisperDAL) 2 mg HS PO Last administered on 08/16/18at 18:51; Start 08/14/18 at 21:00; Stop 08/17/18 at 18:30; Status DC Risperidone (RisperDAL) 1.5 mg HS PO ; Start 08/18/18 at 21:00; Stop 08/18/18 at 21:00; Status DC Risperidone (RisperDAL) 1.5 mg DAILY PO Last administered on 08/17/18at 08:08; Start 08/15/18 at 09:00; Stop 08/17/18 at 18:30; Status DC Amantadine HCl (Symmetrel) 100 mg DAILY PO Last administered on 08/23/18 08:00 ; Start 08/17/18 at 09:00; Stop 08/23/18 at 21:37; Status DC Risperidone (RisperDAL) 1.5 mg BID PO Last administered on 08/19/18at 08:15; Start 08/17/18 at 21:00; Stop 08/19/18 at 15:58; Status DC Risperidone (RisperDAL) 1 mg BID PO Last administered on 08/22/18at 11:33; Start 08/19/18 at 21:00; Stop 08/22/18 at 17:30; Status DC Risperidone (RisperDAL) 1 mg QHS PO Last administered on 08/24/18at 20:41; Start 08/22/18 at 21:00; Stop 08/25/18 at 18:41; Status DC Risperidone (RisperDAL) 0.5 mg DAILY PO Last administered on 08/25/18 11:14; Start 08/23/18 at 09:00; Stop 08/25/18 at 09:00; Status DC Amantadine HCl (Symmetrel) 100 mg BID PO Last administered on 08/27/18 20:22; Start 08/24/18 at 09:00 Risperidone (RisperDAL) 1.5 mg BID PO Last administered on 1/5/19at 20:21; Start 08/26/18 at 09:00 Risperidone (RisperDAL) 2 mg HS PO Last administered on 08/25/18at 20:03; Start 08/25/18 at 21:00; Stop 08/25/18 at 21:01; Status DC Active Scripts Active Reported Xanax (Alprazolam) 0.5 Mg Tablet 0.5 Mg PO PRN Q6HRS PRN Hydrocodone-Apap 5-325 (Hydrocodone Bit/Acetaminophen) 1 Each Tablet 1 Tab PO PRN Q6HRS PRN Voltaren (Diclofenac Sodium) 100 Gm Gel..gram. 4 Gm TP QID Nystatin 15 Gm Powder 1 Yaima TP BID Tums (Calcium Carbonate) 200 Mg Tab.chew 2 Tab PO PRN Q6HRS PRN Nitrostat (Nitroglycerin) 0.4 Mg Tab.subl 0.4 Mg SL PRN Q5MIN PRN Milk Of Magnesia (Magnesium Hydroxide) 2,400 Mg/10 Ml Oral.susp 2,400 Mg PO PRN DAILY PRN Loperamide (Loperamide Hcl) 2 Mg Tablet 2 Mg PO PRN Q6HRS PRN Vitamin C (Ascorbic Acid) 500 Mg Tablet 500 Mg PO BIDWMEALS Risperdal (Risperidone) 2 Mg Tablet 2 Mg PO BIDWMEALS Mucinex (Guaifenesin) 600 Mg Tablet.er 600 Mg PO BIDWMEALS Metformin Hcl 1,000 Mg Tablet 1,000 Mg PO BIDWMEALS Cymbalta (Duloxetine Hcl) 60 Mg Capsule.dr 60 Mg PO BIDWMEALS Depakote Sprinkle (Divalproex Sodium) 125 Mg Cap.sprink 250 Mg PO BIDWMEALS Coreg (Carvedilol) 12.5 Mg Tablet 12.5 Mg PO BIDWMEALS Vitamin D3 (Cholecalciferol (Vitamin D3)) 1,000 Unit Tablet 2,000 Unit PO DAILY Trazodone Hcl 100 Mg Tablet 100 Mg PO HS Multivitamins (Multivitamin) 1 Each Tablet 1 Tab PO DAILY Methotrexate (Methotrexate Sodium) 2.5 Mg Tablet 15 Mg PO WEEKLY Lisinopril 10 Mg Tablet 10 Mg PO DAILY Levothyroxine Sodium 100 Mcg Tablet 100 Mcg PO DAILYAC Lasix (Furosemide) 40 Mg Tablet 40 Mg PO DAILY Folic Acid 1 Mg Tablet 1 Mg PO DAILY Allopurinol 100 Mg Tablet 100 Mg PO DAILY Novolog (Insulin Aspart) 100 Unit/1 Ml Vial 5 Unit SQ TIDWMEALS Levemir (Insulin Detemir) 100 Unit/1 Ml Vial 10 Unit SQ HS I have reviewed the current psychotropics carefully including drug interactions. Risk benefit ratio favors no change other than as noted in my dictated progress note. Diagnosis: Problems: (1) Anxiety disorder (2) Major depressive disorder, recurrent episode (3) Impulse control disorder (4) Dementia in Alzheimer's disease with delusions (5) Dementia in Alzheimer's disease with depression (6) Dementia, vascular, with delusions (7) Dementia, vascular, with depression KAITLIN DREW MD Aug 27, 2018 21:10
--- NOTE | 2018-08-27 23:21 | PN ---
DATE: 08/27/2018 PSYCHIATRIC PROGRESS NOTE This note covers elements not covered in my initial note on 08/27/2018. SUBJECTIVE: I met with the patient in the evening. The patient slept 9 hours previous night. She has been intermittently agitated secondary to communication barrier, but otherwise not defecating on herself and less agitated and labile. She is unable to speak or hear. No CV, , pulmonary, eye, ENT system symptoms on review. Reliability poor. MENTAL STATUS EXAM: Oriented to herself, situations. Speech as above. Abstraction fair, computation impaired, language function intact. Mood and affect less labile. LABORATORY DATA: Reviewed. IMPRESSION: Bipolar 1 disorder, mixed with psychotic features. Rest unchanged. PLAN: We restarted Risperdal and increased it back to 1.5 b.i.d., maintain that along with Cymbalta, Depakote, and trazodone. Valproic acid level therapeutic at 71. KAITLIN DREW MD DR: STEFAN/satya JOB#: [id number] / [id number]
[2018-08-28] MEDS: LEVOTHYROXINE 100 MCG TABLET PO SCH (05:11)
[2018-08-28 06:31] VITALS: BP 129/79
[2018-08-28] MEDS: INSULIN LISPRO 300 UNITS/3 ML INSULN.PEN. SQ SCH ×3 (08:09→17:00)
[2018-08-28] MEDS: CARVEDILOL 12.5 MG TABLET PO SCH ×2 (08:11→17:19)
[2018-08-28] MEDS: ASCORBIC ACID 500 MG TABLET PO SCH ×2 (08:12→17:19)
[2018-08-28] MEDS: metFORMIN 500 MG TABLET PO SCH ×2 (08:12→17:19)
[2018-08-28] MEDS: DIVALPROEX 125 MG CAP.SPRINK PO SCH ×2 (08:12→17:19)
[2018-08-28] MEDS: DULoxetine HCL 60 MG CAPSULE.DR PO SCH (08:12)
[2018-08-28] MEDS: FOLIC ACID 1 MG TABLET PO SCH (08:13)
[2018-08-28] MEDS: risperiDONE 0.5 MG TABLET. PO SCH ×2 (08:13→20:23)
[2018-08-28] MEDS: FUROSEMIDE 40 MG TABLET PO SCH (08:13)
[2018-08-28] MEDS: LISINOPRIL 10 MG TABLET PO SCH (08:13)
[2018-08-28] MEDS: AMANTADINE HCL 100 MG CAPSULE PO SCH ×2 (08:14→20:23)
[2018-08-28] MEDS: MULTIVITAMIN with MINERAL TABLET. PO SCH (08:14)
[2018-08-28] MEDS: NYSTATIN TOPICAL POWDER 15GM BOTTLE. TP SCH ×2 (08:15→20:23)
[2018-08-28] MEDS: ALLOPURINOL 100 MG TABLET. PO SCH (08:15)
[2018-08-28] MEDS: DICLOFENAC SODIUM 1% TOPICAL GEL 100GM TUBE. TP SCH ×4 (08:15→20:25)
[2018-08-28] MEDS: CHOLECALCIFEROL (VITAMIN D3) 1,000 UNIT TABLET PO SCH (08:15)
--- NOTE | 2018-08-28 11:03 | PN ---
DATE: 08/26/2018 PSYCHIATRIC PROGRESS NOTE This late entry, 08/26/2018, covers elements not covered in my initial note. SUBJECTIVE: I met with the patient in the evening. The patient slept 5 hours previous night. She has been anxious, restless, upset, wants to change her walker, crying at times, communicates with sign language. Slept in the morning of 08/26/2018. REVIEW OF SYSTEMS: She is unable to speak or hear, but no specific CV, GI, , eye, ENT system symptoms on review. Reliability varies. MENTAL STATUS EXAM: Oriented to herself, situation. Speech as above. Abstraction fair, computation impaired, language function intact, attention span short. Mood and affect somewhat withdrawn. Since we have increased the Risperdal the night before to 2 mg and initiated 1.5 mg twice a day starting 08/26/2018, she seems a little better with respect to the psychosis. Continue rest unchanged. KAITLIN DREW MD DR: STEFAN/satya JOB#: [id number] / [id number]
[2018-08-28 16:12] VITALS: BP 117/50
[2018-08-28] MEDS: traZODone 100 MG TABLET. PO SCH (20:23)
[2018-08-28] MEDS: INSULIN GLARGINE 300 UNITS/3 ML INSULN.PEN. SQ SCH (20:24)
--- NOTE | 2018-08-28 22:51 | PDOC ---
Exam Note: Johnnie Note: Please also refer to the separate dictated note~for this date of service dictated separately.~Patient seen individually. Discussed the patient with Nursing staff reviewed the chart.~Reviewed interim history and current functioning. Reviewed vital signs,~Labs/ Radiology~and current medications noted below. Continue current treatment with the changes noted in the dictated addendum note Assessment: Vital Signs: Vital Signs Date Time Temp Pulse Resp B/P (MAP) Pulse Ox O2 Delivery O2 Flow Rate FiO2 08/28/18 17:19 75 117/50 08/28/18 16:12 98.0 18 100 08/27/18 16:22 Room Air I&O Intake and Output 08/28/18 07:01 Intake Total 1440 ml Balance 1440 ml Intake Oral 1440 ml # Voids 1 Labs: Laboratory Tests Test 08/28/18 07:48 08/28/18 11:19 08/28/18 16:46 08/28/18 19:10 Glucose (Fingerstick) 91 mg/dL (70-99) 108 mg/dL (70-99) H 110 mg/dL (70-99) H 150 mg/dL (70-99) H Current Medications: Meds: Current Medications Acetaminophen (Tylenol) 650 mg PRN Q6HRS PRN PO PAIN / TEMP; Start 08/11/18 at 21:00 Multi-Ingredient Ointment (Analgesic [place]) 1 yaima PRN QID PRN TP MUSCLE PAIN; Start 08/11/18 at 21:00 Al Hydroxide/Mg Hydroxide (Mylanta Plus Xs) 15 ml PRN AFTMEALHC PRN PO DYSPEPSIA; Start 08/11/18 at 21:00 Magnesium Hydroxide (Milk Of Magnesia) 2,400 mg PRN QHS PRN PO CONSTIPATION; Start 08/11/18 at 21:00 Alprazolam (Xanax) 0.5 mg PRN Q6HRS PRN PO ANXIETY / AGITATION Last administered on 08/21/18at 20:06; Start 08/11/18 at 22:30 Divalproex Sodium (Depakote Sprinkles) 250 mg BIDWMEALS PO Last administered on 08/13/18at 18:08; Start 08/12/18 at 08:00; Stop 08/13/18 at 20:26; Status DC Duloxetine HCl (Cymbalta) 60 mg BIDWMEALS PO Last administered on 08/13/18at 18 :08; Start 08/12/18 at 08:00; Stop 08/13/18 at 20:26; Status DC Risperidone (RisperDAL) 2 mg BIDWMEALS PO Last administered on 08/14/18at 17:45 ; Start 08/12/18 at 08:00; Stop 08/14/18 at 18:45; Status DC Trazodone HCl (Desyrel) 100 mg HS PO Last administered on 08/28/18 20:23; Start 08/11/18 at 22:30 Ascorbic Acid (Vitamin C) 500 mg BIDWMEALS PO Last administered on 08/28/18 17: 19; Start 08/12/18 at 08:00 Calcium Carbonate/ Glycine (Tums) 500 mg PRN Q6HRS PRN PO INDIGESTION; Start 08/11/18 at 22:15 Vitamin D (Vitamin D3) 2,000 unit DAILY PO Last administered on 08/28/18 08:15 ; Start 08/12/18 at 09:00 Diclofenac Sodium (Voltaren) 1 yaima QID TP Last administered on 08/28/18 20:25; Start 08/12/18 at 09:00 Guaifenesin (Mucinex Er) 600 mg BIDWMEALS PO Last administered on 08/28/18 17: 19; Start 08/12/18 at 08:00 Acetaminophen/ Hydrocodone Bitart (Lortab 5/325) 1 tab PRN Q6HRS PRN PO PAIN; Start 08/11/18 at 22:15 Levothyroxine Sodium (Synthroid) 100 mcg DAILY06 PO Last administered on 05:11; Start 08/12/18 at 06:00 Lisinopril (Prinivil) 10 mg DAILY PO Last administered on 08/28/18 08:13; Start 08/12/18 at 09:00 Nitroglycerin (Nitrostat) 0.4 mg PRN Q5MIN PRN SL CHEST PAIN; Start 08/11/18 at 22:15 Nystatin (Nystop) 1 yaima BID TP Last administered on 08/28/18 20:23; Start at 09:00 Allopurinol (Zyloprim) 100 mg DAILY PO Last administered on 08/28/18 08:15; Start 08/12/18 at 09:00 Carvedilol (Coreg) 12.5 mg BIDWMEALS PO Last administered on 08/28/18 17:19; Start 08/12/18 at 08:00 Folic Acid (Folic Acid) 1 mg DAILY PO Last administered on 08/28/18 08:13; Start 08/12/18 at 09:00 Furosemide (Lasix) 40 mg DAILY PO Last administered on 08/28/18 08:13; Start 08/12/18 at 09:00 Insulin Human Lispro (HumaLOG) 5 units TIDWMEALS SQ Last administered on 17:00; Start 08/12/18 at 08:00 Insulin Glargine (Lantus) 10 units QHS SQ Last administered on 08/28/18 20:24; Start 08/11/18 at 23:00 Loperamide HCl (Imodium) 2 mg PRN Q6HRS PRN PO DIARRHEA; Start 08/11/18 at 22: 45 Non-Formulary Medication (Magnesium Hydroxide (Milk Of Magnesia)) 2,400 mg PRN DAILY PRN PO CONSTIPATION; Start 08/11/18 at 22:15; Status UNV Metformin HCl (Glucophage) 1,000 mg BIDWMEALS PO Last administered on 08/28/18 17:19; Start 08/12/18 at 08:00 Methotrexate (Rheumatrex) 15 mg WEEKLY PO Last administered on 08/25/18 11:19; Start 08/18/18 at 09:00 Multivitamins/ Calcium (Thera-M Plus) 1 tab DAILY PO Last administered on 08:14; Start 08/12/18 at 09:00 Glucose (Insta-Glucose) 15 gm PRN Q15MIN PRN PO LOW BLOOD SUGAR; Start at 08:15 Divalproex Sodium (Depakote Sprinkles) 500 mg BIDWMEALS PO ; Start 08/13/18 at 20:27; Stop 08/13/18 at 20:36; Status DC Duloxetine HCl (Cymbalta) 60 mg DAILY PO Last administered on 08/28/18 08:12; Start 08/14/18 at 09:00 Divalproex Sodium (Depakote Sprinkles) 500 mg BIDWMEALS PO Last administered on 08/28/18at 17:19; Start 08/14/18 at 08:00 Risperidone (RisperDAL) 1.5 mg DAILY PO ; Start 08/14/18 at 19:00; Stop at 19:00; Status DC Risperidone (RisperDAL) 2 mg HS PO Last administered on 08/16/18at 18:51; Start 08/14/18 at 21:00; Stop 08/17/18 at 18:30; Status DC Risperidone (RisperDAL) 1.5 mg HS PO ; Start 08/18/18 at 21:00; Stop 08/18/18 at 21:00; Status DC Risperidone (RisperDAL) 1.5 mg DAILY PO Last administered on 08/17/18at 08:08; Start 08/15/18 at 09:00; Stop 08/17/18 at 18:30; Status DC Amantadine HCl (Symmetrel) 100 mg DAILY PO Last administered on 08/23/18at 08:00 ; Start 08/17/18 at 09:00; Stop 08/23/18 at 21:37; Status DC Risperidone (RisperDAL) 1.5 mg BID PO Last administered on 08/19/18at 08:15; Start 08/17/18 at 21:00; Stop 08/19/18 at 15:58; Status DC Risperidone (RisperDAL) 1 mg BID PO Last administered on 08/22/18at 11:33; Start 08/19/18 at 21:00; Stop 08/22/18 at 17:30; Status DC Risperidone (RisperDAL) 1 mg QHS PO Last administered on 08/24/18at 20:41; Start 08/22/18 at 21:00; Stop 08/25/18 at 18:41; Status DC Risperidone (RisperDAL) 0.5 mg DAILY PO Last administered on 08/25/18 11:14; Start 08/23/18 at 09:00; Stop 08/25/18 at 09:00; Status DC Amantadine HCl (Symmetrel) 100 mg BID PO Last administered on 08/28/18at 20:23; Start 08/24/18 at 09:00 Risperidone (RisperDAL) 1.5 mg BID PO Last administered on 08/28/18at 20:23; Start 08/26/18 at 09:00 Risperidone (RisperDAL) 2 mg HS PO Last administered on 08/25/18at 20:03; Start 08/25/18 at 21:00; Stop 08/25/18 at 21:01; Status DC Active Scripts Active Reported Xanax (Alprazolam) 0.5 Mg Tablet 0.5 Mg PO PRN Q6HRS PRN Hydrocodone-Apap 5-325 (Hydrocodone Bit/Acetaminophen) 1 Each Tablet 1 Tab PO PRN Q6HRS PRN Voltaren (Diclofenac Sodium) 100 Gm Gel..gram. 4 Gm TP QID Nystatin 15 Gm Powder 1 Yaima TP BID Tums (Calcium Carbonate) 200 Mg Tab.chew 2 Tab PO PRN Q6HRS PRN Nitrostat (Nitroglycerin) 0.4 Mg Tab.subl 0.4 Mg SL PRN Q5MIN PRN Milk Of Magnesia (Magnesium Hydroxide) 2,400 Mg/10 Ml Oral.susp 2,400 Mg PO PRN DAILY PRN Loperamide (Loperamide Hcl) 2 Mg Tablet 2 Mg PO PRN Q6HRS PRN Vitamin C (Ascorbic Acid) 500 Mg Tablet 500 Mg PO BIDWMEALS Risperdal (Risperidone) 2 Mg Tablet 2 Mg PO BIDWMEALS Mucinex (Guaifenesin) 600 Mg Tablet.er 600 Mg PO BIDWMEALS Metformin Hcl 1,000 Mg Tablet 1,000 Mg PO BIDWMEALS Cymbalta (Duloxetine Hcl) 60 Mg Capsule.dr 60 Mg PO BIDWMEALS Depakote Sprinkle (Divalproex Sodium) 125 Mg Cap.sprink 250 Mg PO BIDWMEALS Coreg (Carvedilol) 12.5 Mg Tablet 12.5 Mg PO BIDWMEALS Vitamin D3 (Cholecalciferol (Vitamin D3)) 1,000 Unit Tablet 2,000 Unit PO DAILY Trazodone Hcl 100 Mg Tablet 100 Mg PO HS Multivitamins (Multivitamin) 1 Each Tablet 1 Tab PO DAILY Methotrexate (Methotrexate Sodium) 2.5 Mg Tablet 15 Mg PO WEEKLY Lisinopril 10 Mg Tablet 10 Mg PO DAILY Levothyroxine Sodium 100 Mcg Tablet 100 Mcg PO DAILYAC Lasix (Furosemide) 40 Mg Tablet 40 Mg PO DAILY Folic Acid 1 Mg Tablet 1 Mg PO DAILY Allopurinol 100 Mg Tablet 100 Mg PO DAILY Novolog (Insulin Aspart) 100 Unit/1 Ml Vial 5 Unit SQ TIDWMEALS Levemir (Insulin Detemir) 100 Unit/1 Ml Vial 10 Unit SQ HS I have reviewed the current psychotropics carefully including drug interactions. Risk benefit ratio favors no change other than as noted in my dictated progress note. Diagnosis: Problems: (1) Anxiety disorder (2) Major depressive disorder, recurrent episode (3) Impulse control disorder (4) Dementia in Alzheimer's disease with delusions (5) Dementia in Alzheimer's disease with depression (6) Dementia, vascular, with delusions (7) Dementia, vascular, with depression KAITLIN DREW MD Aug 28, 2018 22:51
[2018-08-29 05:47] VITALS: BP 90/54
[2018-08-29] MEDS: LEVOTHYROXINE 100 MCG TABLET PO SCH (06:33)
[2018-08-29] MEDS: INSULIN LISPRO 300 UNITS/3 ML INSULN.PEN. SQ SCH ×3 (08:00→17:36)
[2018-08-29] MEDS: CARVEDILOL 12.5 MG TABLET PO SCH ×2 (08:00→17:34)
[2018-08-29] MEDS: DICLOFENAC SODIUM 1% TOPICAL GEL 100GM TUBE. TP SCH ×4 (09:00→20:58)
[2018-08-29] MEDS: LISINOPRIL 10 MG TABLET PO SCH (09:00)
[2018-08-29] MEDS: DIVALPROEX 125 MG CAP.SPRINK PO SCH ×2 (11:28→17:34)
[2018-08-29] MEDS: CHOLECALCIFEROL (VITAMIN D3) 1,000 UNIT TABLET PO SCH (11:29)
[2018-08-29] MEDS: DULoxetine HCL 60 MG CAPSULE.DR PO SCH (11:29)
[2018-08-29] MEDS: risperiDONE 0.5 MG TABLET. PO SCH ×2 (11:29→20:55)
[2018-08-29] MEDS: ALLOPURINOL 100 MG TABLET. PO SCH (11:29)
[2018-08-29] MEDS: metFORMIN 500 MG TABLET PO SCH ×2 (11:29→17:33)
[2018-08-29] MEDS: FOLIC ACID 1 MG TABLET PO SCH (11:29)
[2018-08-29] MEDS: FUROSEMIDE 40 MG TABLET PO SCH (11:30)
[2018-08-29] MEDS: ASCORBIC ACID 500 MG TABLET PO SCH ×2 (11:30→17:34)
[2018-08-29] MEDS: MULTIVITAMIN with MINERAL TABLET. PO SCH (11:30)
[2018-08-29] MEDS: NYSTATIN TOPICAL POWDER 15GM BOTTLE. TP SCH ×2 (11:33→20:55)
[2018-08-29] MEDS: AMANTADINE HCL 100 MG CAPSULE PO SCH ×2 (11:33→20:58)
[2018-08-29 16:13] VITALS: BP 112/68
[2018-08-29] MEDS: traZODone 100 MG TABLET. PO SCH (20:55)
[2018-08-29] MEDS: INSULIN GLARGINE 300 UNITS/3 ML INSULN.PEN. SQ SCH (20:57)
--- NOTE | 2018-08-29 22:42 | PDOC ---
Exam Note: Johnnie Note: Please also refer to the separate dictated note~for this date of service dictated separately.~Patient seen individually. Discussed the patient with Nursing staff reviewed the chart.~Reviewed interim history and current functioning. Reviewed vital signs,~Labs/ Radiology~and current medications noted below. Continue current treatment with the changes noted in the dictated addendum note Assessment: Vital Signs: Vital Signs Date Time Temp Pulse Resp B/P (MAP) Pulse Ox O2 Delivery O2 Flow Rate FiO2 08/29/18 17:34 65 112/68 08/29/18 16:13 98.7 18 97 08/27/18 16:22 Room Air I&O Intake and Output 08/29/18 07:01 Intake Total 1200 ml Balance 1200 ml Intake Oral 1200 ml # Bowel Movements 1 Labs: Laboratory Tests Test 08/29/18 07:21 08/29/18 11:26 08/29/18 16:48 08/29/18 19:07 Glucose (Fingerstick) 80 mg/dL (70-99) 95 mg/dL (70-99) 127 mg/dL (70-99) H 158 mg/dL (70-99) H Current Medications: Meds: Current Medications Acetaminophen (Tylenol) 650 mg PRN Q6HRS PRN PO PAIN / TEMP; Start 08/11/18 at 21:00 Multi-Ingredient Ointment (Analgesic [place]) 1 yaima PRN QID PRN TP MUSCLE PAIN; Start 08/11/18 at 21:00 Al Hydroxide/Mg Hydroxide (Mylanta Plus Xs) 15 ml PRN AFTMEALHC PRN PO DYSPEPSIA; Start 08/11/18 at 21:00 Magnesium Hydroxide (Milk Of Magnesia) 2,400 mg PRN QHS PRN PO CONSTIPATION; Start 08/11/18 at 21:00 Alprazolam (Xanax) 0.5 mg PRN Q6HRS PRN PO ANXIETY / AGITATION Last administered on 08/21/18at 20:06; Start 08/11/18 at 22:30 Divalproex Sodium (Depakote Sprinkles) 250 mg BIDWMEALS PO Last administered on 08/13/18at 18:08; Start 08/12/18 at 08:00; Stop 08/13/18 at 20:26; Status DC Duloxetine HCl (Cymbalta) 60 mg BIDWMEALS PO Last administered on 08/13/18at 18 :08; Start 08/12/18 at 08:00; Stop 08/13/18 at 20:26; Status DC Risperidone (RisperDAL) 2 mg BIDWMEALS PO Last administered on 08/14/18at 17:45 ; Start 08/12/18 at 08:00; Stop 08/14/18 at 18:45; Status DC Trazodone HCl (Desyrel) 100 mg HS PO Last administered on 08/29/18 20:55; Start 08/11/18 at 22:30 Ascorbic Acid (Vitamin C) 500 mg BIDWMEALS PO Last administered on 08/29/18 17: 34; Start 08/12/18 at 08:00 Calcium Carbonate/ Glycine (Tums) 500 mg PRN Q6HRS PRN PO INDIGESTION; Start 08/11/18 at 22:15 Vitamin D (Vitamin D3) 2,000 unit DAILY PO Last administered on 08/29/18 11:29 ; Start 08/12/18 at 09:00 Diclofenac Sodium (Voltaren) 1 yaima QID TP Last administered on 08/29/18 20:58; Start 08/12/18 at 09:00 Guaifenesin (Mucinex Er) 600 mg BIDWMEALS PO Last administered on 08/29/18 17: 34; Start 08/12/18 at 08:00 Acetaminophen/ Hydrocodone Bitart (Lortab 5/325) 1 tab PRN Q6HRS PRN PO PAIN; Start 08/11/18 at 22:15 Levothyroxine Sodium (Synthroid) 100 mcg DAILY06 PO Last administered on 06:33; Start 08/12/18 at 06:00 Lisinopril (Prinivil) 10 mg DAILY PO Last administered on 08/28/18 08:13; Start 08/12/18 at 09:00 Nitroglycerin (Nitrostat) 0.4 mg PRN Q5MIN PRN SL CHEST PAIN; Start 08/11/18 at 22:15 Nystatin (Nystop) 1 yaima BID TP Last administered on 08/29/18 20:55; Start at 09:00 Allopurinol (Zyloprim) 100 mg DAILY PO Last administered on 08/29/18 11:29; Start 08/12/18 at 09:00 Carvedilol (Coreg) 12.5 mg BIDWMEALS PO Last administered on 08/29/18 17:34; Start 08/12/18 at 08:00 Folic Acid (Folic Acid) 1 mg DAILY PO Last administered on 08/29/18 11:29; Start 08/12/18 at 09:00 Furosemide (Lasix) 40 mg DAILY PO Last administered on 08/29/18 11:30; Start 08/12/18 at 09:00 Insulin Human Lispro (HumaLOG) 5 units TIDWMEALS SQ Last administered on 17:36; Start 08/12/18 at 08:00 Insulin Glargine (Lantus) 10 units QHS SQ Last administered on 08/29/18 20:57; Start 08/11/18 at 23:00 Loperamide HCl (Imodium) 2 mg PRN Q6HRS PRN PO DIARRHEA; Start 08/11/18 at 22: 45 Non-Formulary Medication (Magnesium Hydroxide (Milk Of Magnesia)) 2,400 mg PRN DAILY PRN PO CONSTIPATION; Start 08/11/18 at 22:15; Status UNV Metformin HCl (Glucophage) 1,000 mg BIDWMEALS PO Last administered on 08/29/18 17:33; Start 08/12/18 at 08:00 Methotrexate (Rheumatrex) 15 mg WEEKLY PO Last administered on 08/25/18 11:19; Start 08/18/18 at 09:00 Multivitamins/ Calcium (Thera-M Plus) 1 tab DAILY PO Last administered on 11:30; Start 08/12/18 at 09:00 Glucose (Insta-Glucose) 15 gm PRN Q15MIN PRN PO LOW BLOOD SUGAR; Start at 08:15 Divalproex Sodium (Depakote Sprinkles) 500 mg BIDWMEALS PO ; Start 08/13/18 at 20:27; Stop 08/13/18 at 20:36; Status DC Duloxetine HCl (Cymbalta) 60 mg DAILY PO Last administered on 08/29/18 11:29; Start 08/14/18 at 09:00 Divalproex Sodium (Depakote Sprinkles) 500 mg BIDWMEALS PO Last administered on 08/29/18at 17:34; Start 08/14/18 at 08:00 Risperidone (RisperDAL) 1.5 mg DAILY PO ; Start 08/14/18 at 19:00; Stop at 19:00; Status DC Risperidone (RisperDAL) 2 mg HS PO Last administered on 08/16/18at 18:51; Start 08/14/18 at 21:00; Stop 08/17/18 at 18:30; Status DC Risperidone (RisperDAL) 1.5 mg HS PO ; Start 08/18/18 at 21:00; Stop 08/18/18 at 21:00; Status DC Risperidone (RisperDAL) 1.5 mg DAILY PO Last administered on 08/17/18at 08:08; Start 08/15/18 at 09:00; Stop 08/17/18 at 18:30; Status DC Amantadine HCl (Symmetrel) 100 mg DAILY PO Last administered on 08/23/18at 08:00 ; Start 08/17/18 at 09:00; Stop 08/23/18 at 21:37; Status DC Risperidone (RisperDAL) 1.5 mg BID PO Last administered on 08/19/18at 08:15; Start 08/17/18 at 21:00; Stop 08/19/18 at 15:58; Status DC Risperidone (RisperDAL) 1 mg BID PO Last administered on 08/22/18at 11:33; Start 08/19/18 at 21:00; Stop 08/22/18 at 17:30; Status DC Risperidone (RisperDAL) 1 mg QHS PO Last administered on 08/24/18at 20:41; Start 08/22/18 at 21:00; Stop 08/25/18 at 18:41; Status DC Risperidone (RisperDAL) 0.5 mg DAILY PO Last administered on 08/25/18at 11:14; Start 08/23/18 at 09:00; Stop 08/25/18 at 09:00; Status DC Amantadine HCl (Symmetrel) 100 mg BID PO Last administered on 08/29/18at 20:58; Start 08/24/18 at 09:00 Risperidone (RisperDAL) 1.5 mg BID PO Last administered on 08/29/18at 20:55; Start 08/26/18 at 09:00 Risperidone (RisperDAL) 2 mg HS PO Last administered on 08/25/18at 20:03; Start 08/25/18 at 21:00; Stop 08/25/18 at 21:01; Status DC Active Scripts Active Reported Xanax (Alprazolam) 0.5 Mg Tablet 0.5 Mg PO PRN Q6HRS PRN Hydrocodone-Apap 5-325 (Hydrocodone Bit/Acetaminophen) 1 Each Tablet 1 Tab PO PRN Q6HRS PRN Voltaren (Diclofenac Sodium) 100 Gm Gel..gram. 4 Gm TP QID Nystatin 15 Gm Powder 1 Yaima TP BID Tums (Calcium Carbonate) 200 Mg Tab.chew 2 Tab PO PRN Q6HRS PRN Nitrostat (Nitroglycerin) 0.4 Mg Tab.subl 0.4 Mg SL PRN Q5MIN PRN Milk Of Magnesia (Magnesium Hydroxide) 2,400 Mg/10 Ml Oral.susp 2,400 Mg PO PRN DAILY PRN Loperamide (Loperamide Hcl) 2 Mg Tablet 2 Mg PO PRN Q6HRS PRN Vitamin C (Ascorbic Acid) 500 Mg Tablet 500 Mg PO BIDWMEALS Risperdal (Risperidone) 2 Mg Tablet 2 Mg PO BIDWMEALS Mucinex (Guaifenesin) 600 Mg Tablet.er 600 Mg PO BIDWMEALS Metformin Hcl 1,000 Mg Tablet 1,000 Mg PO BIDWMEALS Cymbalta (Duloxetine Hcl) 60 Mg Capsule.dr 60 Mg PO BIDWMEALS Depakote Sprinkle (Divalproex Sodium) 125 Mg Cap.sprink 250 Mg PO BIDWMEALS Coreg (Carvedilol) 12.5 Mg Tablet 12.5 Mg PO BIDWMEALS Vitamin D3 (Cholecalciferol (Vitamin D3)) 1,000 Unit Tablet 2,000 Unit PO DAILY Trazodone Hcl 100 Mg Tablet 100 Mg PO HS Multivitamins (Multivitamin) 1 Each Tablet 1 Tab PO DAILY Methotrexate (Methotrexate Sodium) 2.5 Mg Tablet 15 Mg PO WEEKLY Lisinopril 10 Mg Tablet 10 Mg PO DAILY Levothyroxine Sodium 100 Mcg Tablet 100 Mcg PO DAILYAC Lasix (Furosemide) 40 Mg Tablet 40 Mg PO DAILY Folic Acid 1 Mg Tablet 1 Mg PO DAILY Allopurinol 100 Mg Tablet 100 Mg PO DAILY Novolog (Insulin Aspart) 100 Unit/1 Ml Vial 5 Unit SQ TIDWMEALS Levemir (Insulin Detemir) 100 Unit/1 Ml Vial 10 Unit SQ HS I have reviewed the current psychotropics carefully including drug interactions. Risk benefit ratio favors no change other than as noted in my dictated progress note. Diagnosis: Problems: (1) Anxiety disorder (2) Major depressive disorder, recurrent episode (3) Impulse control disorder (4) Dementia in Alzheimer's disease with delusions (5) Dementia in Alzheimer's disease with depression (6) Dementia, vascular, with delusions (7) Dementia, vascular, with depression KAITLIN DREW MD Aug 29, 2018 22:42
--- NOTE | 2018-08-30 00:29 | PN ---
DATE: 08/28/2018 PSYCHIATRIC PROGRESS NOTE This late entry 08/28/2018 covers elements, not covered in my initial note. SUBJECTIVE: I met with the patient in the evening. The patient slept 3-3/4 hours previous night. She remains somewhat withdrawn, little irritable at times, but no clear hallucinations noted. REVIEW OF SYSTEMS: No CV, , pulmonary, eye, ENT system symptoms on review. Reliability varies. 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 MENTAL STATUS EXAM: Abstraction fair. Computation difficult to assess. No clear hallucinations, suicidal or homicidal ideation. Attention span short. LABORATORY DATA: Reviewed. IMPRESSION: Bipolar 1 disorder, mixed with psychotic features, in partial remission; cognitive disorder, unspecified; anxiety disorder, unspecified. PLAN: We restarted and increased the Risperdal, maintain, Depakote level is therapeutic, Cymbalta along with trazodone and Xanax. KAITLIN DREW MD DR: STEFAN/satya JOB#: [id number] / [id number]
[2018-08-30] MEDS: ACETAMINOPHEN 325 MG TABLET PO PRN (01:05)
[2018-08-30 05:42] VITALS: BP 106/63
[2018-08-30] MEDS: LEVOTHYROXINE 100 MCG TABLET PO SCH (06:24)
[2018-08-30] MEDS: ASCORBIC ACID 500 MG TABLET PO SCH ×2 (07:48→17:49)
[2018-08-30] MEDS: ALLOPURINOL 100 MG TABLET. PO SCH (07:48)
[2018-08-30] MEDS: CARVEDILOL 12.5 MG TABLET PO SCH ×2 (07:48→17:49)
[2018-08-30] MEDS: DULoxetine HCL 60 MG CAPSULE.DR PO SCH (07:48)
[2018-08-30] MEDS: risperiDONE 0.5 MG TABLET. PO SCH ×2 (07:49→19:56)
[2018-08-30] MEDS: FOLIC ACID 1 MG TABLET PO SCH (07:49)
[2018-08-30] MEDS: DIVALPROEX 125 MG CAP.SPRINK PO SCH ×2 (07:49→17:50)
[2018-08-30] MEDS: LISINOPRIL 10 MG TABLET PO SCH (07:49)
[2018-08-30] MEDS: MULTIVITAMIN with MINERAL TABLET. PO SCH (07:49)
[2018-08-30] MEDS: FUROSEMIDE 40 MG TABLET PO SCH (07:49)
[2018-08-30] MEDS: CHOLECALCIFEROL (VITAMIN D3) 1,000 UNIT TABLET PO SCH (07:49)
[2018-08-30] MEDS: AMANTADINE HCL 100 MG CAPSULE PO SCH ×2 (07:50→19:56)
[2018-08-30] MEDS: DICLOFENAC SODIUM 1% TOPICAL GEL 100GM TUBE. TP SCH ×5 (07:51→22:05)
[2018-08-30] MEDS: NYSTATIN TOPICAL POWDER 15GM BOTTLE. TP SCH ×2 (07:51→20:00)
[2018-08-30] MEDS: metFORMIN 500 MG TABLET PO SCH ×2 (07:52→17:49)
[2018-08-30] MEDS: INSULIN LISPRO 300 UNITS/3 ML INSULN.PEN. SQ SCH ×3 (07:54→17:00)
[2018-08-30 15:52] VITALS: BP 108/68
[2018-08-30] MEDS ORDERED: traZODone 100 MG TABLET. PO PRN (18:45)
[2018-08-30] MEDS: traZODone 100 MG TABLET. PO SCH (19:56)
[2018-08-30] MEDS: INSULIN GLARGINE 300 UNITS/3 ML INSULN.PEN. SQ SCH (19:57)
--- NOTE | 2018-08-30 23:01 | PDOC ---
Exam Note: Johnnie Note: Please also refer to the separate dictated note~for this date of service dictated separately.~Patient seen individually. Discussed the patient with Nursing staff reviewed the chart.~Reviewed interim history and current functioning. Reviewed vital signs,~Labs/ Radiology~and current medications noted below. Continue current treatment with the changes noted in the dictated addendum note Assessment: Vital Signs: Vital Signs Date Time Temp Pulse Resp B/P (MAP) Pulse Ox O2 Delivery O2 Flow Rate FiO2 08/30/18 17:49 70 108/68 08/30/18 15:52 98.0 16 98 08/27/18 16:22 Room Air I&O Intake and Output 08/30/18 07:01 Intake Total 800 ml Balance 800 ml Intake Oral 800 ml Labs: Laboratory Tests Test 08/30/18 07:23 08/30/18 12:05 08/30/18 17:20 08/30/18 19:10 Glucose (Fingerstick) 106 mg/dL (70-99) H 103 mg/dL (70-99) H 84 mg/dL (70-99) 128 mg/dL (70-99) H Current Medications: Meds: Current Medications Acetaminophen (Tylenol) 650 mg PRN Q6HRS PRN PO PAIN / TEMP Last administered on 08/30/18at 01:05; Start 08/11/18 at 21:00 Multi-Ingredient Ointment (Analgesic [place]) 1 yaima PRN QID PRN TP MUSCLE PAIN; Start 08/11/18 at 21:00 Al Hydroxide/Mg Hydroxide (Mylanta Plus Xs) 15 ml PRN AFTMEALHC PRN PO DYSPEPSIA; Start 08/11/18 at 21:00 Magnesium Hydroxide (Milk Of Magnesia) 2,400 mg PRN QHS PRN PO CONSTIPATION; Start 08/11/18 at 21:00 Alprazolam (Xanax) 0.5 mg PRN Q6HRS PRN PO ANXIETY / AGITATION Last administered on 08/21/18at 20:06; Start 08/11/18 at 22:30 Divalproex Sodium (Depakote Sprinkles) 250 mg BIDWMEALS PO Last administered on 08/13/18at 18:08; Start 08/12/18 at 08:00; Stop 08/13/18 at 20:26; Status DC Duloxetine HCl (Cymbalta) 60 mg BIDWMEALS PO Last administered on 08/13/18at 18 :08; Start 08/12/18 at 08:00; Stop 08/13/18 at 20:26; Status DC Risperidone (RisperDAL) 2 mg BIDWMEALS PO Last administered on 08/14/18at 17:45 ; Start 08/12/18 at 08:00; Stop 08/14/18 at 18:45; Status DC Trazodone HCl (Desyrel) 100 mg HS PO Last administered on 08/30/18 19:56; Start 08/11/18 at 22:30 Ascorbic Acid (Vitamin C) 500 mg BIDWMEALS PO Last administered on 08/30/18 17: 49; Start 08/12/18 at 08:00 Calcium Carbonate/ Glycine (Tums) 500 mg PRN Q6HRS PRN PO INDIGESTION; Start 08/11/18 at 22:15 Vitamin D (Vitamin D3) 2,000 unit DAILY PO Last administered on 08/30/18 07:49 ; Start 08/12/18 at 09:00 Diclofenac Sodium (Voltaren) 1 yaima QID TP Last administered on 08/30/18 22:05; Start 08/12/18 at 09:00 Guaifenesin (Mucinex Er) 600 mg BIDWMEALS PO Last administered on 08/30/18 17: 49; Start 08/12/18 at 08:00 Acetaminophen/ Hydrocodone Bitart (Lortab 5/325) 1 tab PRN Q6HRS PRN PO PAIN; Start 08/11/18 at 22:15 Levothyroxine Sodium (Synthroid) 100 mcg DAILY06 PO Last administered on 06:24; Start 08/12/18 at 06:00 Lisinopril (Prinivil) 10 mg DAILY PO Last administered on 08/30/18 07:49; Start 08/12/18 at 09:00 Nitroglycerin (Nitrostat) 0.4 mg PRN Q5MIN PRN SL CHEST PAIN; Start 08/11/18 at 22:15 Nystatin (Nystop) 1 yaima BID TP Last administered on 08/30/18 20:00; Start at 09:00 Allopurinol (Zyloprim) 100 mg DAILY PO Last administered on 08/30/18 07:48; Start 08/12/18 at 09:00 Carvedilol (Coreg) 12.5 mg BIDWMEALS PO Last administered on 08/30/18 17:49; Start 08/12/18 at 08:00 Folic Acid (Folic Acid) 1 mg DAILY PO Last administered on 08/30/18 07:49; Start 08/12/18 at 09:00 Furosemide (Lasix) 40 mg DAILY PO Last administered on 08/30/18 07:49; Start 08/12/18 at 09:00 Insulin Human Lispro (HumaLOG) 5 units TIDWMEALS SQ Last administered on 12:55; Start 08/12/18 at 08:00 Insulin Glargine (Lantus) 10 units QHS SQ Last administered on 08/30/18 19:57; Start 08/11/18 at 23:00 Loperamide HCl (Imodium) 2 mg PRN Q6HRS PRN PO DIARRHEA; Start 08/11/18 at 22: 45 Non-Formulary Medication (Magnesium Hydroxide (Milk Of Magnesia)) 2,400 mg PRN DAILY PRN PO CONSTIPATION; Start 08/11/18 at 22:15; Status UNV Metformin HCl (Glucophage) 1,000 mg BIDWMEALS PO Last administered on 08/30/18 17:49; Start 08/12/18 at 08:00 Methotrexate (Rheumatrex) 15 mg WEEKLY PO Last administered on 08/25/18 11:19; Start 08/18/18 at 09:00 Multivitamins/ Calcium (Thera-M Plus) 1 tab DAILY PO Last administered on 07:49; Start 08/12/18 at 09:00 Glucose (Insta-Glucose) 15 gm PRN Q15MIN PRN PO LOW BLOOD SUGAR; Start at 08:15 Divalproex Sodium (Depakote Sprinkles) 500 mg BIDWMEALS PO ; Start 08/13/18 at 20:27; Stop 08/13/18 at 20:36; Status DC Duloxetine HCl (Cymbalta) 60 mg DAILY PO Last administered on 08/30/18 07:48; Start 08/14/18 at 09:00 Divalproex Sodium (Depakote Sprinkles) 500 mg BIDWMEALS PO Last administered on 08/30/18at 17:50; Start 08/14/18 at 08:00 Risperidone (RisperDAL) 1.5 mg DAILY PO ; Start 08/14/18 at 19:00; Stop at 19:00; Status DC Risperidone (RisperDAL) 2 mg HS PO Last administered on 08/16/18at 18:51; Start 08/14/18 at 21:00; Stop 08/17/18 at 18:30; Status DC Risperidone (RisperDAL) 1.5 mg HS PO ; Start 08/18/18 at 21:00; Stop 08/18/18 at 21:00; Status DC Risperidone (RisperDAL) 1.5 mg DAILY PO Last administered on 08/17/18at 08:08; Start 08/15/18 at 09:00; Stop 08/17/18 at 18:30; Status DC Amantadine HCl (Symmetrel) 100 mg DAILY PO Last administered on 08/23/18at 08:00 ; Start 08/17/18 at 09:00; Stop 08/23/18 at 21:37; Status DC Risperidone (RisperDAL) 1.5 mg BID PO Last administered on 08/19/18at 08:15; Start 08/17/18 at 21:00; Stop 08/19/18 at 15:58; Status DC Risperidone (RisperDAL) 1 mg BID PO Last administered on 08/22/18at 11:33; Start 08/19/18 at 21:00; Stop 08/22/18 at 17:30; Status DC Risperidone (RisperDAL) 1 mg QHS PO Last administered on 08/24/18at 20:41; Start 08/22/18 at 21:00; Stop 08/25/18 at 18:41; Status DC Risperidone (RisperDAL) 0.5 mg DAILY PO Last administered on 08/25/18at 11:14; Start 08/23/18 at 09:00; Stop 08/25/18 at 09:00; Status DC Amantadine HCl (Symmetrel) 100 mg BID PO Last administered on 08/30/18at 19:56; Start 08/24/18 at 09:00 Risperidone (RisperDAL) 1.5 mg BID PO Last administered on 08/30/18at 19:56; Start 08/26/18 at 09:00 Risperidone (RisperDAL) 2 mg HS PO Last administered on 08/25/18at 20:03; Start 08/25/18 at 21:00; Stop 08/25/18 at 21:01; Status DC Trazodone HCl (Desyrel) 100 mg PRN QHS PRN PO INSOMNIA; Start 08/30/18 at 18:45 Active Scripts Active Reported Xanax (Alprazolam) 0.5 Mg Tablet 0.5 Mg PO PRN Q6HRS PRN Hydrocodone-Apap 5-325 (Hydrocodone Bit/Acetaminophen) 1 Each Tablet 1 Tab PO PRN Q6HRS PRN Voltaren (Diclofenac Sodium) 100 Gm Gel..gram. 4 Gm TP QID Nystatin 15 Gm Powder 1 Yaima TP BID Tums (Calcium Carbonate) 200 Mg Tab.chew 2 Tab PO PRN Q6HRS PRN Nitrostat (Nitroglycerin) 0.4 Mg Tab.subl 0.4 Mg SL PRN Q5MIN PRN Milk Of Magnesia (Magnesium Hydroxide) 2,400 Mg/10 Ml Oral.susp 2,400 Mg PO PRN DAILY PRN Loperamide (Loperamide Hcl) 2 Mg Tablet 2 Mg PO PRN Q6HRS PRN Vitamin C (Ascorbic Acid) 500 Mg Tablet 500 Mg PO BIDWMEALS Risperdal (Risperidone) 2 Mg Tablet 2 Mg PO BIDWMEALS Mucinex (Guaifenesin) 600 Mg Tablet.er 600 Mg PO BIDWMEALS Metformin Hcl 1,000 Mg Tablet 1,000 Mg PO BIDWMEALS Cymbalta (Duloxetine Hcl) 60 Mg Capsule.dr 60 Mg PO BIDWMEALS Depakote Sprinkle (Divalproex Sodium) 125 Mg Cap.sprink 250 Mg PO BIDWMEALS Coreg (Carvedilol) 12.5 Mg Tablet 12.5 Mg PO BIDWMEALS Vitamin D3 (Cholecalciferol (Vitamin D3)) 1,000 Unit Tablet 2,000 Unit PO DAILY Trazodone Hcl 100 Mg Tablet 100 Mg PO HS Multivitamins (Multivitamin) 1 Each Tablet 1 Tab PO DAILY Methotrexate (Methotrexate Sodium) 2.5 Mg Tablet 15 Mg PO WEEKLY Lisinopril 10 Mg Tablet 10 Mg PO DAILY Levothyroxine Sodium 100 Mcg Tablet 100 Mcg PO DAILYAC Lasix (Furosemide) 40 Mg Tablet 40 Mg PO DAILY Folic Acid 1 Mg Tablet 1 Mg PO DAILY Allopurinol 100 Mg Tablet 100 Mg PO DAILY Novolog (Insulin Aspart) 100 Unit/1 Ml Vial 5 Unit SQ TIDWMEALS Levemir (Insulin Detemir) 100 Unit/1 Ml Vial 10 Unit SQ HS I have reviewed the current psychotropics carefully including drug interactions. Risk benefit ratio favors no change other than as noted in my dictated progress note. Diagnosis: Problems: (1) Anxiety disorder (2) Major depressive disorder, recurrent episode (3) Impulse control disorder (4) Dementia in Alzheimer's disease with delusions (5) Dementia in Alzheimer's disease with depression (6) Dementia, vascular, with delusions (7) Dementia, vascular, with depression KAITLIN DREW MD Aug 30, 2018 23:01
--- NOTE | 2018-08-31 01:55 | PN ---
DATE: 08/29/2018 This late entry for 08/29/2018 covers elements not covered in my initial note. SUBJECTIVE: I met with the patient in the evening. The patient slept until 11 o'clock, had slept 7-1/2 hours previous night. She has not had any behaviors, compliant with a.m. medications, not aggressive. REVIEW OF SYSTEMS: She is deaf, unable to speak and most communication is sign language. No CV, , eye, ENT system symptoms on review other than above. MENTAL STATUS EXAM: Oriented to herself and situation. Speech as above. Abstraction fair. Computation difficult to assess. Mood and affect somewhat withdrawn at times, but not yelling and no active hallucinations noted on close assessment. LABORATORY DATA: Reviewed. IMPRESSION: Bipolar 1 disorder, mixed with psychotic features, in partial remission; anxiety disorder, unspecified. Rest unchanged from above. PLAN: No change from initial note. MAN Vanesa DREW MD DR: STEFAN/satya JOB#: [id number] / [id number]
[2018-08-31 05:59] VITALS: BP 100/63
[2018-08-31] MEDS: LEVOTHYROXINE 100 MCG TABLET PO SCH (06:11)
[2018-08-31] MEDS: INSULIN LISPRO 300 UNITS/3 ML INSULN.PEN. SQ SCH ×3 (08:00→17:49)
[2018-08-31 08:03] LABS: BASO % 1 % (0-3); EOS # 0.2 x10^3/uL (0.0-0.7); EOS % 3 % (0-3); HEMATOCRIT 34.2 % (36.0-47.0); HEMOGLOBIN 11.5 g/dL (12.0-15.5); LYMPH # 2.2 x10^3/uL (1.0-4.8); LYMPH % 30 % (24-48); MEAN CORPUSCULAR HEMOGLOBIN 33 pg (25-35); MEAN CORPUSCULAR HGB CONC 34 g/dL (31-37); MEAN CORPUSCULAR VOLUME 98 fL (79-100); MONO # 0.6 x10^3/uL (0.0-1.1); MONO % 9 % (0-9); NEUT # 4.2 x10^3uL (1.8-7.7); NEUT % 58 % (31-73); PLATELET COUNT 166 x10^3/uL (140-400); RED BLOOD COUNT 3.51 x10^6/uL (3.50-5.40); WHITE BLOOD COUNT 7.3 x10^3/uL (4.0-11.0)
[2018-08-31 08:17] LABS: ALBUMIN 2.5 g/dL (3.4-5.0); ALBUMIN/GLOBULIN RATIO 0.8 (1.0-1.7); CALCIUM 8.3 mg/dL (8.5-10.1); GFR 56.7; POTASSIUM 3.1 mmol/L (3.5-5.1); TOTAL BILIRUBIN 0.3 mg/dL (0.2-1.0); TOTAL PROTEIN 5.7 g/dL (6.4-8.2)
[2018-08-31] MEDS: metFORMIN 500 MG TABLET PO SCH ×2 (08:36→17:46)
[2018-08-31] MEDS: AMANTADINE HCL 100 MG CAPSULE PO SCH ×2 (08:36→20:28)
[2018-08-31] MEDS: ALLOPURINOL 100 MG TABLET. PO SCH (08:36)
[2018-08-31] MEDS: CARVEDILOL 12.5 MG TABLET PO SCH ×2 (08:37→17:47)
[2018-08-31] MEDS: risperiDONE 0.5 MG TABLET. PO SCH ×2 (08:37→20:28)
[2018-08-31] MEDS: MULTIVITAMIN with MINERAL TABLET. PO SCH (08:37)
[2018-08-31] MEDS: CHOLECALCIFEROL (VITAMIN D3) 1,000 UNIT TABLET PO SCH (08:37)
[2018-08-31] MEDS: DIVALPROEX 125 MG CAP.SPRINK PO SCH ×2 (08:37→17:46)
[2018-08-31] MEDS: DULoxetine HCL 60 MG CAPSULE.DR PO SCH (08:37)
[2018-08-31] MEDS: LISINOPRIL 10 MG TABLET PO SCH (08:37)
[2018-08-31] MEDS: ASCORBIC ACID 500 MG TABLET PO SCH ×2 (08:38→17:46)
[2018-08-31] MEDS: FOLIC ACID 1 MG TABLET PO SCH (08:38)
[2018-08-31] MEDS: FUROSEMIDE 40 MG TABLET PO SCH (08:38)
[2018-08-31] MEDS: DICLOFENAC SODIUM 1% TOPICAL GEL 100GM TUBE. TP SCH ×4 (08:38→20:29)
[2018-08-31] MEDS: NYSTATIN TOPICAL POWDER 15GM BOTTLE. TP SCH ×2 (08:39→20:28)
[2018-08-31 16:27] VITALS: BP 104/63
--- NOTE | 2018-08-31 17:34 | PN ---
DATE: 08/30/2018 PSYCHIATRIC PROGRESS NOTE This late entry 08/30/2018 covers elements not covered in my initial note. SUBJECTIVE: I met with the patient in the evening. The patient slept 2-3/4 hours previous night. She has had no overt behaviors. REVIEW OF SYSTEMS: No clear hallucinations noted, but communication is nonverbal consequent to her being totally deaf and difficulty with her verbal skills. No CV, , eye, ENT system symptoms on review. Reliability poor. MENTAL STATUS EXAM: Oriented to herself and situation. Speech as above. Abstraction fair. Computation difficult to assess. No active suicidal or homicidal ideation. No clear psychosis has observed her closely. LABORATORY DATA: Reviewed. IMPRESSION: Bipolar 1 disorder, mixed with psychotic features, in partial remission; anxiety disorder, unspecified. Rest as above. PLAN: Continue psychotropics from initial note. Adjust as clinically indicated. MAN Vanesa DREW MD DR: STEFAN/satya JOB#: [id number] / [id number]
[2018-08-31] MEDS: traZODone 100 MG TABLET. PO SCH (20:28)
[2018-08-31] MEDS: POTASSIUM CHLORIDE 20 MEQ TABLET.ER. PO SCH (20:28)
[2018-08-31] MEDS: INSULIN GLARGINE 300 UNITS/3 ML INSULN.PEN. SQ SCH (20:29)
--- NOTE | 2018-08-31 22:51 | PDOC ---
Exam Note: Johnnie Note: Please also refer to the separate dictated note~for this date of service dictated separately.~Patient seen individually. Discussed the patient with Nursing staff reviewed the chart.~Reviewed interim history and current functioning. Reviewed vital signs,~Labs/ Radiology~and current medications noted below. Continue current treatment with the changes noted in the dictated addendum note Assessment: Vital Signs: Vital Signs Date Time Temp Pulse Resp B/P (MAP) Pulse Ox O2 Delivery O2 Flow Rate FiO2 08/31/18 17:47 63 104/63 08/31/18 16:27 98.0 19 95 08/27/18 16:22 Room Air I&O Intake and Output 08/31/18 07:01 Intake Total 1560 ml Balance 1560 ml Intake Oral 1560 ml Labs: Laboratory Tests Test 08/31/18 07:37 08/31/18 07:50 08/31/18 11:39 08/31/18 16:57 White Blood Count 7.3 x10^3/uL (4.0-11.0) # Red Blood Count 3.51 x10^6/uL (3.50-5.40) Hemoglobin 11.5 g/dL (12.0-15.5) L Hematocrit 34.2 % (36.0-47.0) L Mean Corpuscular Volume 98 fL (79-100) Mean Corpuscular Hemoglobin 33 pg (25-35) Mean Corpuscular Hemoglobin Concent 34 g/dL (31-37) Red Cell Distribution Width 17.0 % (11.5-14.5) H Platelet Count 166 x10^3/uL (140-400) Neutrophils (%) (Auto) 58 % (31-73) Lymphocytes (%) (Auto) 30 % (24-48) Monocytes (%) (Auto) 9 % (0-9) Eosinophils (%) (Auto) 3 % (0-3) Basophils (%) (Auto) 1 % (0-3) Neutrophils # (Auto) 4.2 x10^3uL (1.8-7.7) Lymphocytes # (Auto) 2.2 x10^3/uL (1.0-4.8) Monocytes # (Auto) 0.6 x10^3/uL (0.0-1.1) Eosinophils # (Auto) 0.2 x10^3/uL (0.0-0.7) Basophils # (Auto) 0.0 x10^3/uL (0.0-0.2) Sodium Level 144 mmol/L (136-145) Potassium Level 3.1 mmol/L (3.5-5.1) L Chloride Level 105 mmol/L (98-107) Carbon Dioxide Level 32 mmol/L (21-32) Anion Gap 7 (6-14) Blood Urea Nitrogen 8 mg/dL (7-20) Creatinine 1.0 mg/dL (0.6-1.0) Estimated GFR (Cockcroft-Gault) 56.7 BUN/Creatinine Ratio 8 (6-20) Glucose Level 65 mg/dL (70-99) L Calcium Level 8.3 mg/dL (8.5-10.1) L Total Bilirubin 0.3 mg/dL (0.2-1.0) Aspartate Amino Transferase (AST) 9 U/L (15-37) L Alanine Aminotransferase (ALT) 13 U/L (14-59) L Alkaline Phosphatase 65 U/L (46-116) Total Protein 5.7 g/dL (6.4-8.2) L Albumin 2.5 g/dL (3.4-5.0) L Albumin/Globulin Ratio 0.8 (1.0-1.7) L Glucose (Fingerstick) 59 mg/dL (70-99) L 119 mg/dL (70-99) H 110 mg/dL (70-99) H Test 08/31/18 19:20 Glucose (Fingerstick) 128 mg/dL (70-99) H Current Medications: Meds: Current Medications Acetaminophen (Tylenol) 650 mg PRN Q6HRS PRN PO PAIN / TEMP Last administered on 08/30/18at 01:05; Start 08/11/18 at 21:00 Multi-Ingredient Ointment (Analgesic [place]) 1 yaima PRN QID PRN TP MUSCLE PAIN; Start 08/11/18 at 21:00 Al Hydroxide/Mg Hydroxide (Mylanta Plus Xs) 15 ml PRN AFTMEALHC PRN PO DYSPEPSIA; Start 08/11/18 at 21:00 Magnesium Hydroxide (Milk Of Magnesia) 2,400 mg PRN QHS PRN PO CONSTIPATION; Start 08/11/18 at 21:00 Alprazolam (Xanax) 0.5 mg PRN Q6HRS PRN PO ANXIETY / AGITATION Last administered on 08/21/18 20:06; Start 08/11/18 at 22:30 Divalproex Sodium (Depakote Sprinkles) 250 mg BIDWMEALS PO Last administered on 08/13/18at 18:08; Start 08/12/18 at 08:00; Stop 08/13/18 at 20:26; Status DC Duloxetine HCl (Cymbalta) 60 mg BIDWMEALS PO Last administered on 08/13/18at 18 :08; Start 08/12/18 at 08:00; Stop 08/13/18 at 20:26; Status DC Risperidone (RisperDAL) 2 mg BIDWMEALS PO Last administered on 08/14/18at 17:45 ; Start 08/12/18 at 08:00; Stop 08/14/18 at 18:45; Status DC Trazodone HCl (Desyrel) 100 mg HS PO Last administered on 08/31/18 20:28; Start 08/11/18 at 22:30 Ascorbic Acid (Vitamin C) 500 mg BIDWMEALS PO Last administered on 08/31/18 17: 46; Start 08/12/18 at 08:00 Calcium Carbonate/ Glycine (Tums) 500 mg PRN Q6HRS PRN PO INDIGESTION; Start 08/11/18 at 22:15 Vitamin D (Vitamin D3) 2,000 unit DAILY PO Last administered on 08/31/18 08:37 ; Start 08/12/18 at 09:00 Diclofenac Sodium (Voltaren) 1 yaima QID TP Last administered on 08/31/18 20:29; Start 08/12/18 at 09:00 Guaifenesin (Mucinex Er) 600 mg BIDWMEALS PO Last administered on 08/31/18 17: 47; Start 08/12/18 at 08:00 Acetaminophen/ Hydrocodone Bitart (Lortab 5/325) 1 tab PRN Q6HRS PRN PO PAIN; Start 08/11/18 at 22:15 Levothyroxine Sodium (Synthroid) 100 mcg DAILY06 PO Last administered on 06:11; Start 08/12/18 at 06:00 Lisinopril (Prinivil) 10 mg DAILY PO Last administered on 08/31/18 08:37; Start 08/12/18 at 09:00 Nitroglycerin (Nitrostat) 0.4 mg PRN Q5MIN PRN SL CHEST PAIN; Start 08/11/18 at 22:15 Nystatin (Nystop) 1 yaima BID TP Last administered on 08/31/18 20:28; Start at 09:00 Allopurinol (Zyloprim) 100 mg DAILY PO Last administered on 08/31/18 08:36; Start 08/12/18 at 09:00 Carvedilol (Coreg) 12.5 mg BIDWMEALS PO Last administered on 08/31/18 17:47; Start 08/12/18 at 08:00 Folic Acid (Folic Acid) 1 mg DAILY PO Last administered on 08/31/18 08:38; Start 08/12/18 at 09:00 Furosemide (Lasix) 40 mg DAILY PO Last administered on 08/31/18 08:38; Start 08/12/18 at 09:00 Insulin Human Lispro (HumaLOG) 5 units TIDWMEALS SQ Last administered on 17:49; Start 08/12/18 at 08:00 Insulin Glargine (Lantus) 10 units QHS SQ Last administered on 08/31/18 20:29; Start 08/11/18 at 23:00 Loperamide HCl (Imodium) 2 mg PRN Q6HRS PRN PO DIARRHEA; Start 08/11/18 at 22: 45 Non-Formulary Medication (Magnesium Hydroxide (Milk Of Magnesia)) 2,400 mg PRN DAILY PRN PO CONSTIPATION; Start 08/11/18 at 22:15; Status UNV Metformin HCl (Glucophage) 1,000 mg BIDWMEALS PO Last administered on 08/31/18 17:46; Start 08/12/18 at 08:00 Methotrexate (Rheumatrex) 15 mg WEEKLY PO Last administered on 08/25/18 11:19; Start 08/18/18 at 09:00 Multivitamins/ Calcium (Thera-M Plus) 1 tab DAILY PO Last administered on 08:37; Start 08/12/18 at 09:00 Glucose (Insta-Glucose) 15 gm PRN Q15MIN PRN PO LOW BLOOD SUGAR; Start at 08:15 Divalproex Sodium (Depakote Sprinkles) 500 mg BIDWMEALS PO ; Start 08/13/18 at 20:27; Stop 08/13/18 at 20:36; Status DC Duloxetine HCl (Cymbalta) 60 mg DAILY PO Last administered on 08/31/18 08:37; Start 08/14/18 at 09:00 Divalproex Sodium (Depakote Sprinkles) 500 mg BIDWMEALS PO Last administered on 08/31/18 17:46; Start 08/14/18 at 08:00 Risperidone (RisperDAL) 1.5 mg DAILY PO ; Start 08/14/18 at 19:00; Stop at 19:00; Status DC Risperidone (RisperDAL) 2 mg HS PO Last administered on 08/16/18at 18:51; Start 08/14/18 at 21:00; Stop 08/17/18 at 18:30; Status DC Risperidone (RisperDAL) 1.5 mg HS PO ; Start 08/18/18 at 21:00; Stop 08/18/18 at 21:00; Status DC Risperidone (RisperDAL) 1.5 mg DAILY PO Last administered on 08/17/18at 08:08; Start 08/15/18 at 09:00; Stop 08/17/18 at 18:30; Status DC Amantadine HCl (Symmetrel) 100 mg DAILY PO Last administered on 08/23/18 08:00 ; Start 08/17/18 at 09:00; Stop 08/23/18 at 21:37; Status DC Risperidone (RisperDAL) 1.5 mg BID PO Last administered on 08/19/18at 08:15; Start 08/17/18 at 21:00; Stop 08/19/18 at 15:58; Status DC Risperidone (RisperDAL) 1 mg BID PO Last administered on 08/22/18at 11:33; Start 08/19/18 at 21:00; Stop 08/22/18 at 17:30; Status DC Risperidone (RisperDAL) 1 mg QHS PO Last administered on 08/24/18at 20:41; Start 08/22/18 at 21:00; Stop 08/25/18 at 18:41; Status DC Risperidone (RisperDAL) 0.5 mg DAILY PO Last administered on 08/25/18at 11:14; Start 08/23/18 at 09:00; Stop 08/25/18 at 09:00; Status DC Amantadine HCl (Symmetrel) 100 mg BID PO Last administered on 08/31/18 20:28; Start 08/24/18 at 09:00 Risperidone (RisperDAL) 1.5 mg BID PO Last administered on 08/31/18 20:28; Start 08/26/18 at 09:00 Risperidone (RisperDAL) 2 mg HS PO Last administered on 08/25/18 20:03; Start 08/25/18 at 21:00; Stop 08/25/18 at 21:01; Status DC Trazodone HCl (Desyrel) 100 mg PRN QHS PRN PO INSOMNIA Last administered on 08/31 02:29; Start 08/30/18 at 18:45 Potassium Chloride (Klor-Con) 20 meq TID PO Last administered on 08/31/18 20:28 ; Start 08/31/18 at 21:00 Active Scripts Active Reported Xanax (Alprazolam) 0.5 Mg Tablet 0.5 Mg PO PRN Q6HRS PRN Hydrocodone-Apap 5-325 (Hydrocodone Bit/Acetaminophen) 1 Each Tablet 1 Tab PO PRN Q6HRS PRN Voltaren (Diclofenac Sodium) 100 Gm Gel..gram. 4 Gm TP QID Nystatin 15 Gm Powder 1 Yaima TP BID Tums (Calcium Carbonate) 200 Mg Tab.chew 2 Tab PO PRN Q6HRS PRN Nitrostat (Nitroglycerin) 0.4 Mg Tab.subl 0.4 Mg SL PRN Q5MIN PRN Milk Of Magnesia (Magnesium Hydroxide) 2,400 Mg/10 Ml Oral.susp 2,400 Mg PO PRN DAILY PRN Loperamide (Loperamide Hcl) 2 Mg Tablet 2 Mg PO PRN Q6HRS PRN Vitamin C (Ascorbic Acid) 500 Mg Tablet 500 Mg PO BIDWMEALS Risperdal (Risperidone) 2 Mg Tablet 2 Mg PO BIDWMEALS Mucinex (Guaifenesin) 600 Mg Tablet.er 600 Mg PO BIDWMEALS Metformin Hcl 1,000 Mg Tablet 1,000 Mg PO BIDWMEALS Cymbalta (Duloxetine Hcl) 60 Mg Capsule.dr 60 Mg PO BIDWMEALS Depakote Sprinkle (Divalproex Sodium) 125 Mg Cap.sprink 250 Mg PO BIDWMEALS Coreg (Carvedilol) 12.5 Mg Tablet 12.5 Mg PO BIDWMEALS Vitamin D3 (Cholecalciferol (Vitamin D3)) 1,000 Unit Tablet 2,000 Unit PO DAILY Trazodone Hcl 100 Mg Tablet 100 Mg PO HS Multivitamins (Multivitamin) 1 Each Tablet 1 Tab PO DAILY Methotrexate (Methotrexate Sodium) 2.5 Mg Tablet 15 Mg PO WEEKLY Lisinopril 10 Mg Tablet 10 Mg PO DAILY Levothyroxine Sodium 100 Mcg Tablet 100 Mcg PO DAILYAC Lasix (Furosemide) 40 Mg Tablet 40 Mg PO DAILY Folic Acid 1 Mg Tablet 1 Mg PO DAILY Allopurinol 100 Mg Tablet 100 Mg PO DAILY Novolog (Insulin Aspart) 100 Unit/1 Ml Vial 5 Unit SQ TIDWMEALS Levemir (Insulin Detemir) 100 Unit/1 Ml Vial 10 Unit SQ HS I have reviewed the current psychotropics carefully including drug interactions. Risk benefit ratio favors no change other than as noted in my dictated progress note. Diagnosis: Problems: (1) Anxiety disorder (2) Major depressive disorder, recurrent episode (3) Impulse control disorder (4) Dementia in Alzheimer's disease with delusions (5) Dementia in Alzheimer's disease with depression (6) Dementia, vascular, with delusions (7) Dementia, vascular, with depression KAITLIN DREW MD Aug 31, 2018 22:51
[2018-09-01] MEDS: LEVOTHYROXINE 100 MCG TABLET PO SCH (05:46)
[2018-09-01 05:58] VITALS: BP 96/58
[2018-09-01] MEDS: DIVALPROEX 125 MG CAP.SPRINK PO SCH ×2 (08:22→17:20)
[2018-09-01] MEDS: metFORMIN 500 MG TABLET PO SCH ×2 (08:22→17:21)
[2018-09-01] MEDS: ASCORBIC ACID 500 MG TABLET PO SCH ×2 (08:23→17:21)
[2018-09-01] MEDS: INSULIN LISPRO 300 UNITS/3 ML INSULN.PEN. SQ SCH ×3 (08:23→17:22)
[2018-09-01] MEDS: FOLIC ACID 1 MG TABLET PO SCH (08:24)
[2018-09-01] MEDS: DULoxetine HCL 60 MG CAPSULE.DR PO SCH (08:24)
[2018-09-01] MEDS: POTASSIUM CHLORIDE 20 MEQ TABLET.ER. PO SCH ×3 (08:24→20:52)
[2018-09-01] MEDS: FUROSEMIDE 40 MG TABLET PO SCH (08:25)
[2018-09-01] MEDS: CARVEDILOL 12.5 MG TABLET PO SCH ×2 (08:25→17:00)
[2018-09-01] MEDS: LISINOPRIL 10 MG TABLET PO SCH (08:26)
[2018-09-01] MEDS: risperiDONE 0.5 MG TABLET. PO SCH ×2 (08:28→20:52)
[2018-09-01] MEDS: METHOTREXATE SODIUM 2.5 MG TABLET PO SCH (08:28)
[2018-09-01] MEDS: MULTIVITAMIN with MINERAL TABLET. PO SCH (08:29)
[2018-09-01] MEDS: AMANTADINE HCL 100 MG CAPSULE PO SCH ×2 (08:29→20:53)
[2018-09-01] MEDS: ALLOPURINOL 100 MG TABLET. PO SCH (08:29)
[2018-09-01] MEDS: CHOLECALCIFEROL (VITAMIN D3) 1,000 UNIT TABLET PO SCH (08:29)
[2018-09-01] MEDS: NYSTATIN TOPICAL POWDER 15GM BOTTLE. TP SCH ×2 (08:29→20:52)
[2018-09-01] MEDS: DICLOFENAC SODIUM 1% TOPICAL GEL 100GM TUBE. TP SCH ×4 (08:30→20:52)
[2018-09-01] MEDS: HYDROcodone/APAP 5/325MG 1 TAB TABLET PO PRN (08:30)
[2018-09-01] MEDS: ACETAMINOPHEN 325 MG TABLET PO PRN (08:36)
[2018-09-01 16:03] VITALS: BP 116/52
[2018-09-01] MEDS: traZODone 100 MG TABLET. PO SCH (20:52)
[2018-09-01] MEDS: INSULIN GLARGINE 300 UNITS/3 ML INSULN.PEN. SQ SCH (20:53)
--- NOTE | 2018-09-01 21:32 | PN ---
DATE: 08/31/2018 This late entry for 08/31/2018 covers elements not covered in my initial note. SUBJECTIVE: I met with the patient in the evenings, staffed at a treatment team meeting with the entire team earlier in the day. The patient slept 4-3/4 hours previous evening. He is getting a level 2 Assessment for placement. Appetite 70%. After breakfast, she went to bed. REVIEW OF SYSTEMS: Extremely hard of hearing, unable to speak as a consequence of this. Most communication is nonverbal. No CV, , GI, eye system symptoms on review. Reliability poor. MENTAL STATUS EXAM: Oriented to herself, situation. Speech is as above. Abstraction fair, computation impaired, language function intact, attention span short. Mood and affect, much less labile. No clear psychotic symptoms noted. LABORATORY DATA: Reviewed. IMPRESSION: Bipolar 1 disorder, mixed with psychotic features. Rest diagnoses as above. PLAN: Continue psychotropics from initial note. KAITLIN DREW MD DR: STEFAN/satya JOB#: [id number] / [id number]
--- NOTE | 2018-09-01 22:59 | PDOC ---
Exam Note: Johnnie Note: Please also refer to the separate dictated note~for this date of service dictated separately.~Patient seen individually. Discussed the patient with Nursing staff reviewed the chart.~Reviewed interim history and current functioning. Reviewed vital signs,~Labs/ Radiology~and current medications noted below. Continue current treatment with the changes noted in the dictated addendum note Assessment: Vital Signs: Vital Signs Date Time Temp Pulse Resp B/P (MAP) Pulse Ox O2 Delivery O2 Flow Rate FiO2 09/01/18 16:03 97.5 70 17 116/52 (73) 94 Room Air I&O Intake and Output 09/01/18 07:01 Intake Total 1440 ml Balance 1440 ml Intake Oral 1440 ml # Voids 1 Labs: Laboratory Tests Test 09/01/18 07:30 09/01/18 12:14 09/01/18 17:16 09/01/18 19:19 Glucose (Fingerstick) 79 mg/dL (70-99) 104 mg/dL (70-99) H 89 mg/dL (70-99) 139 mg/dL (70-99) H Current Medications: Meds: Current Medications Acetaminophen (Tylenol) 650 mg PRN Q6HRS PRN PO PAIN / TEMP Last administered on 09/01/18at 08:36; Start 08/11/18 at 21:00 Multi-Ingredient Ointment (Analgesic [place]) 1 yaima PRN QID PRN TP MUSCLE PAIN; Start 08/11/18 at 21:00 Al Hydroxide/Mg Hydroxide (Mylanta Plus Xs) 15 ml PRN AFTMEALHC PRN PO DYSPEPSIA; Start 08/11/18 at 21:00 Magnesium Hydroxide (Milk Of Magnesia) 2,400 mg PRN QHS PRN PO CONSTIPATION; Start 08/11/18 at 21:00 Alprazolam (Xanax) 0.5 mg PRN Q6HRS PRN PO ANXIETY / AGITATION Last administered on 08/21/18at 20:06; Start 08/11/18 at 22:30 Divalproex Sodium (Depakote Sprinkles) 250 mg BIDWMEALS PO Last administered on 08/13/18at 18:08; Start 08/12/18 at 08:00; Stop 08/13/18 at 20:26; Status DC Duloxetine HCl (Cymbalta) 60 mg BIDWMEALS PO Last administered on 08/13/18at 18 :08; Start 08/12/18 at 08:00; Stop 08/13/18 at 20:26; Status DC Risperidone (RisperDAL) 2 mg BIDWMEALS PO Last administered on 08/14/18at 17:45 ; Start 08/12/18 at 08:00; Stop 08/14/18 at 18:45; Status DC Trazodone HCl (Desyrel) 100 mg HS PO Last administered on 09/01/18 20:52; Start 08/11/18 at 22:30 Ascorbic Acid (Vitamin C) 500 mg BIDWMEALS PO Last administered on 09/01/18 17 :21; Start 08/12/18 at 08:00 Calcium Carbonate/ Glycine (Tums) 500 mg PRN Q6HRS PRN PO INDIGESTION; Start 08/11/18 at 22:15 Vitamin D (Vitamin D3) 2,000 unit DAILY PO Last administered on 09/01/18 08:29 ; Start 08/12/18 at 09:00 Diclofenac Sodium (Voltaren) 1 yaima QID TP Last administered on 09/01/18 20:52 ; Start 08/12/18 at 09:00 Guaifenesin (Mucinex Er) 600 mg BIDWMEALS PO Last administered on 09/01/18 17: 21; Start 08/12/18 at 08:00 Acetaminophen/ Hydrocodone Bitart (Lortab 5/325) 1 tab PRN Q6HRS PRN PO PAIN; Start 08/11/18 at 22:15 Levothyroxine Sodium (Synthroid) 100 mcg DAILY06 PO Last administered on 05:46; Start 08/12/18 at 06:00 Lisinopril (Prinivil) 10 mg DAILY PO Last administered on 08/31/18 08:37; Start 08/12/18 at 09:00 Nitroglycerin (Nitrostat) 0.4 mg PRN Q5MIN PRN SL CHEST PAIN; Start 08/11/18 at 22:15 Nystatin (Nystop) 1 yaima BID TP Last administered on 09/01/18 20:52; Start at 09:00 Allopurinol (Zyloprim) 100 mg DAILY PO Last administered on 09/01/18 08:29; Start 08/12/18 at 09:00 Carvedilol (Coreg) 12.5 mg BIDWMEALS PO Last administered on 08/31/18 17:47; Start 08/12/18 at 08:00 Folic Acid (Folic Acid) 1 mg DAILY PO Last administered on 09/01/18 08:24; Start 08/12/18 at 09:00 Furosemide (Lasix) 40 mg DAILY PO Last administered on 08/31/18 08:38; Start 08/12/18 at 09:00 Insulin Human Lispro (HumaLOG) 5 units TIDWMEALS SQ Last administered on 17:22; Start 08/12/18 at 08:00 Insulin Glargine (Lantus) 10 units QHS SQ Last administered on 09/01/18 20:53 ; Start 08/11/18 at 23:00 Loperamide HCl (Imodium) 2 mg PRN Q6HRS PRN PO DIARRHEA; Start 08/11/18 at 22: 45 Non-Formulary Medication (Magnesium Hydroxide (Milk Of Magnesia)) 2,400 mg PRN DAILY PRN PO CONSTIPATION; Start 08/11/18 at 22:15; Status UNV Metformin HCl (Glucophage) 1,000 mg BIDWMEALS PO Last administered on 17:21; Start 08/12/18 at 08:00 Methotrexate (Rheumatrex) 15 mg WEEKLY PO Last administered on 09/01/18 08:28 ; Start 08/18/18 at 09:00 Multivitamins/ Calcium (Thera-M Plus) 1 tab DAILY PO Last administered on 08:29; Start 08/12/18 at 09:00 Glucose (Insta-Glucose) 15 gm PRN Q15MIN PRN PO LOW BLOOD SUGAR; Start at 08:15 Divalproex Sodium (Depakote Sprinkles) 500 mg BIDWMEALS PO ; Start 08/13/18 at 20:27; Stop 08/13/18 at 20:36; Status DC Duloxetine HCl (Cymbalta) 60 mg DAILY PO Last administered on 09/01/18 08:24; Start 08/14/18 at 09:00 Divalproex Sodium (Depakote Sprinkles) 500 mg BIDWMEALS PO Last administered on 09/01/18at 17:20; Start 08/14/18 at 08:00 Risperidone (RisperDAL) 1.5 mg DAILY PO ; Start 08/14/18 at 19:00; Stop at 19:00; Status DC Risperidone (RisperDAL) 2 mg HS PO Last administered on 08/16/18at 18:51; Start 08/14/18 at 21:00; Stop 08/17/18 at 18:30; Status DC Risperidone (RisperDAL) 1.5 mg HS PO ; Start 08/18/18 at 21:00; Stop 08/18/18 at 21:00; Status DC Risperidone (RisperDAL) 1.5 mg DAILY PO Last administered on 08/17/18at 08:08; Start 08/15/18 at 09:00; Stop 08/17/18 at 18:30; Status DC Amantadine HCl (Symmetrel) 100 mg DAILY PO Last administered on 08/23/18at 08:00 ; Start 08/17/18 at 09:00; Stop 08/23/18 at 21:37; Status DC Risperidone (RisperDAL) 1.5 mg BID PO Last administered on 08/19/18at 08:15; Start 08/17/18 at 21:00; Stop 08/19/18 at 15:58; Status DC Risperidone (RisperDAL) 1 mg BID PO Last administered on 08/22/18at 11:33; Start 08/19/18 at 21:00; Stop 08/22/18 at 17:30; Status DC Risperidone (RisperDAL) 1 mg QHS PO Last administered on 08/24/18at 20:41; Start 08/22/18 at 21:00; Stop 08/25/18 at 18:41; Status DC Risperidone (RisperDAL) 0.5 mg DAILY PO Last administered on 08/25/18at 11:14; Start 08/23/18 at 09:00; Stop 08/25/18 at 09:00; Status DC Amantadine HCl (Symmetrel) 100 mg BID PO Last administered on 09/01/18at 20:53; Start 08/24/18 at 09:00 Risperidone (RisperDAL) 1.5 mg BID PO Last administered on 09/01/18at 20:52; Start 08/26/18 at 09:00 Risperidone (RisperDAL) 2 mg HS PO Last administered on 08/25/18at 20:03; Start 08/25/18 at 21:00; Stop 08/25/18 at 21:01; Status DC Trazodone HCl (Desyrel) 100 mg PRN QHS PRN PO INSOMNIA Last administered on 08/31at 02:29; Start 08/30/18 at 18:45 Potassium Chloride (Klor-Con) 20 meq TID PO Last administered on 09/01/18at 20: 52; Start 08/31/18 at 21:00 Active Scripts Active Reported Xanax (Alprazolam) 0.5 Mg Tablet 0.5 Mg PO PRN Q6HRS PRN Hydrocodone-Apap 5-325 (Hydrocodone Bit/Acetaminophen) 1 Each Tablet 1 Tab PO PRN Q6HRS PRN Voltaren (Diclofenac Sodium) 100 Gm Gel..gram. 4 Gm TP QID Nystatin 15 Gm Powder 1 Yaima TP BID Tums (Calcium Carbonate) 200 Mg Tab.chew 2 Tab PO PRN Q6HRS PRN Nitrostat (Nitroglycerin) 0.4 Mg Tab.subl 0.4 Mg SL PRN Q5MIN PRN Milk Of Magnesia (Magnesium Hydroxide) 2,400 Mg/10 Ml Oral.susp 2,400 Mg PO PRN DAILY PRN Loperamide (Loperamide Hcl) 2 Mg Tablet 2 Mg PO PRN Q6HRS PRN Vitamin C (Ascorbic Acid) 500 Mg Tablet 500 Mg PO BIDWMEALS Risperdal (Risperidone) 2 Mg Tablet 2 Mg PO BIDWMEALS Mucinex (Guaifenesin) 600 Mg Tablet.er 600 Mg PO BIDWMEALS Metformin Hcl 1,000 Mg Tablet 1,000 Mg PO BIDWMEALS Cymbalta (Duloxetine Hcl) 60 Mg Capsule.dr 60 Mg PO BIDWMEALS Depakote Sprinkle (Divalproex Sodium) 125 Mg Cap.sprink 250 Mg PO BIDWMEALS Coreg (Carvedilol) 12.5 Mg Tablet 12.5 Mg PO BIDWMEALS Vitamin D3 (Cholecalciferol (Vitamin D3)) 1,000 Unit Tablet 2,000 Unit PO DAILY Trazodone Hcl 100 Mg Tablet 100 Mg PO HS Multivitamins (Multivitamin) 1 Each Tablet 1 Tab PO DAILY Methotrexate (Methotrexate Sodium) 2.5 Mg Tablet 15 Mg PO WEEKLY Lisinopril 10 Mg Tablet 10 Mg PO DAILY Levothyroxine Sodium 100 Mcg Tablet 100 Mcg PO DAILYAC Lasix (Furosemide) 40 Mg Tablet 40 Mg PO DAILY Folic Acid 1 Mg Tablet 1 Mg PO DAILY Allopurinol 100 Mg Tablet 100 Mg PO DAILY Novolog (Insulin Aspart) 100 Unit/1 Ml Vial 5 Unit SQ TIDWMEALS Levemir (Insulin Detemir) 100 Unit/1 Ml Vial 10 Unit SQ HS I have reviewed the current psychotropics carefully including drug interactions. Risk benefit ratio favors no change other than as noted in my dictated progress note. Diagnosis: Problems: (1) Anxiety disorder (2) Major depressive disorder, recurrent episode (3) Impulse control disorder (4) Dementia in Alzheimer's disease with delusions (5) Dementia in Alzheimer's disease with depression (6) Dementia, vascular, with delusions (7) Dementia, vascular, with depression KAITLIN DREW MD Sep 01, 2018 22:59
--- NOTE | 2018-09-01 23:07 | PN ---
DATE: 09/01/2018 This note covers elements not covered in my initial note of 09/01/2018. SUBJECTIVE: I met with the patient in the afternoon. The patient slept 6 hours previous night, but overall, she has been more cooperative, less psychotic and not defecating on the day room chair etc., not yelling other than to the extent that she does because of being deaf. REVIEW OF SYSTEMS: No CV, , pulmonary, eye system symptoms on review. Reliability poor. MENTAL STATUS EXAM: Oriented to herself and situation. Speech as above. Abstraction fair, computation impaired, language function intact, attention span short. Mood and affect somewhat withdrawn at times, slightly labile at other times, but improved. LABORATORY DATA: Reviewed. IMPRESSION: Bipolar 1 disorder, mixed with psychotic features, in partial remission. Rest unchanged from initial note. PLAN: No change from initial note. MAN Vanesa DREW MD DR: STEFAN/satya JOB#: [id number] / [id number]
[2018-09-02 05:41] VITALS: BP 128/75
[2018-09-02] MEDS: LEVOTHYROXINE 100 MCG TABLET PO SCH (05:51)
[2018-09-02 07:49] LABS: CALCIUM 8.5 mg/dL (8.5-10.1); GFR 56.7; POTASSIUM 4.7 mmol/L (3.5-5.1)
[2018-09-02] MEDS: metFORMIN 500 MG TABLET PO SCH ×3 (07:52→16:43)
[2018-09-02] MEDS: FOLIC ACID 1 MG TABLET PO SCH ×2 (07:53→11:04)
[2018-09-02] MEDS: FUROSEMIDE 40 MG TABLET PO SCH ×2 (07:53→11:07)
[2018-09-02] MEDS: AMANTADINE HCL 100 MG CAPSULE PO SCH ×3 (07:53→20:55)
[2018-09-02] MEDS: DULoxetine HCL 60 MG CAPSULE.DR PO SCH ×2 (07:53→11:04)
[2018-09-02] MEDS: MULTIVITAMIN with MINERAL TABLET. PO SCH ×2 (07:54→11:04)
[2018-09-02] MEDS: LISINOPRIL 10 MG TABLET PO SCH ×2 (07:54→11:05)
[2018-09-02] MEDS: ALLOPURINOL 100 MG TABLET. PO SCH ×2 (07:54→11:05)
[2018-09-02] MEDS: ASCORBIC ACID 500 MG TABLET PO SCH ×3 (07:55→16:44)
[2018-09-02] MEDS: risperiDONE 0.5 MG TABLET. PO SCH ×3 (07:55→20:52)
[2018-09-02] MEDS: CARVEDILOL 12.5 MG TABLET PO SCH ×3 (07:55→17:00)
[2018-09-02] MEDS: CHOLECALCIFEROL (VITAMIN D3) 1,000 UNIT TABLET PO SCH ×2 (07:55→11:04)
[2018-09-02] MEDS: DIVALPROEX 125 MG CAP.SPRINK PO SCH ×3 (07:56→16:44)
[2018-09-02] MEDS: INSULIN LISPRO 300 UNITS/3 ML INSULN.PEN. SQ SCH ×4 (07:57→17:29)
[2018-09-02] MEDS: POTASSIUM CHLORIDE 20 MEQ TABLET.ER. PO SCH ×4 (08:00→20:49)
[2018-09-02] MEDS: DICLOFENAC SODIUM 1% TOPICAL GEL 100GM TUBE. TP SCH ×6 (08:02→20:56)
[2018-09-02] MEDS: NYSTATIN TOPICAL POWDER 15GM BOTTLE. TP SCH ×2 (09:45→20:51)
[2018-09-02 15:03] VITALS: BP 105/65
[2018-09-02] MEDS: traZODone 100 MG TABLET. PO SCH (20:51)
[2018-09-02] MEDS: INSULIN GLARGINE 300 UNITS/3 ML INSULN.PEN. SQ SCH (20:58)
--- NOTE | 2018-09-02 21:36 | PN ---
DATE: 09/02/2018 SUBJECTIVE: The patient was seen today, met with the staff, chart reviewed, also covering for Dr. Schneider. Staff reports that the patient is refusing the meds, have some obsessive compulsive behaviors. The patient is also at that time psychotic. OBSERVATION: VITAL SIGNS: Temperature 98.4, blood pressure 125/75, pulse 98, respirations 20, O2 sat 96%. Slept about 5 hours last night. The patient's appetite is fair. MEDICATIONS: Reviewed. Currently on trazodone 100 mg at night p.r.n., Risperdal 1.5 mg b.i.d., Cymbalta 60 mg daily, Depakote 500 mg b.i.d., trazodone 100 mg at night. The patient is not having any side effects to the medications. ASSESSMENT: Bipolar disorder mixed with psychotic features; cognitive disorder, unspecified. PLAN: To continue with the current treatment. LATHA AMES MD DR: LIZBET/satya JOB#: [id number] / [id number]
[2018-09-03] MEDS: LEVOTHYROXINE 100 MCG TABLET PO SCH (06:08)
[2018-09-03 06:26] VITALS: BP 110/58
[2018-09-03] MEDS: INSULIN LISPRO 300 UNITS/3 ML INSULN.PEN. SQ SCH ×3 (08:05→17:31)
[2018-09-03] MEDS: CARVEDILOL 12.5 MG TABLET PO SCH ×2 (08:42→17:25)
[2018-09-03] MEDS: DIVALPROEX 125 MG CAP.SPRINK PO SCH ×2 (08:42→17:29)
[2018-09-03] MEDS: ASCORBIC ACID 500 MG TABLET PO SCH ×2 (08:43→17:30)
[2018-09-03] MEDS: FOLIC ACID 1 MG TABLET PO SCH (08:43)
[2018-09-03] MEDS: DULoxetine HCL 60 MG CAPSULE.DR PO SCH (08:43)
[2018-09-03] MEDS: metFORMIN 500 MG TABLET PO SCH ×2 (08:43→17:30)
[2018-09-03] MEDS: POTASSIUM CHLORIDE 20 MEQ TABLET.ER. PO SCH ×2 (08:43→14:25)
[2018-09-03] MEDS: FUROSEMIDE 40 MG TABLET PO SCH (08:44)
[2018-09-03] MEDS: AMANTADINE HCL 100 MG CAPSULE PO SCH ×2 (08:44→19:54)
[2018-09-03] MEDS: MULTIVITAMIN with MINERAL TABLET. PO SCH (08:44)
[2018-09-03] MEDS: ALLOPURINOL 100 MG TABLET. PO SCH (08:44)
[2018-09-03] MEDS: risperiDONE 0.5 MG TABLET. PO SCH ×2 (08:44→19:55)
[2018-09-03] MEDS: NYSTATIN TOPICAL POWDER 15GM BOTTLE. TP SCH ×2 (08:44→19:55)
[2018-09-03] MEDS: CHOLECALCIFEROL (VITAMIN D3) 1,000 UNIT TABLET PO SCH (08:44)
[2018-09-03] MEDS: DICLOFENAC SODIUM 1% TOPICAL GEL 100GM TUBE. TP SCH ×4 (08:45→19:56)
[2018-09-03] MEDS: LISINOPRIL 10 MG TABLET PO SCH (10:16)
[2018-09-03 15:58] VITALS: BP 90/48
[2018-09-03 16:12] LABS: BASO % 0 % (0-3); EOS # 0.1 x10^3/uL (0.0-0.7); EOS % 2 % (0-3); HEMATOCRIT 37.1 % (36.0-47.0); HEMOGLOBIN 12.2 g/dL (12.0-15.5); LYMPH # 1.1 x10^3/uL (1.0-4.8); LYMPH % 16 % (24-48); MEAN CORPUSCULAR HEMOGLOBIN 32 pg (25-35); MEAN CORPUSCULAR HGB CONC 33 g/dL (31-37); MEAN CORPUSCULAR VOLUME 98 fL (79-100); MONO # 0.2 x10^3/uL (0.0-1.1); MONO % 4 % (0-9); NEUT # 5.5 x10^3uL (1.8-7.7); NEUT % 78 % (31-73); PLATELET COUNT 145 x10^3/uL (140-400); RED CELL DISTRIBUTION WIDTH 18.3 % (11.5-14.5)
[2018-09-03 16:29] LABS: ALBUMIN 2.6 g/dL (3.4-5.0); ALBUMIN/GLOBULIN RATIO 0.7 (1.0-1.7); CALCIUM 8.8 mg/dL (8.5-10.1); CREATININE 1.1 mg/dL (0.6-1.0); GFR 50.8; POTASSIUM 5.2 mmol/L (3.5-5.1); TOTAL BILIRUBIN 0.4 mg/dL (0.2-1.0); TOTAL PROTEIN 6.5 g/dL (6.4-8.2)
--- NOTE | 2018-09-03 16:45 | RAD ---
CT LOWER EXTREMITY WO LEFT dated 09/03/2018 4:13 PM Indication:left inner thigh pain mid thigh to above the left knee Comparison: No comparison is available. Technique: Helical noncontrast images were performed. One or more of the following individualized dose reduction techniques were utilized for this examination: 1. Automated exposure control 2. Adjustment of the mA and/or kV according to patient size 3. Use of iterative reconstruction technique Findings: There is diffuse edema in the medial thigh. No localized collection such as an abscess is seen. There is no apparent soft tissue mass. Bone windows show no apparent fracture or bony destructive process. IMPRESSION: Findings suggest cellulitis in the distal thigh. No abscess is seen. Electronically signed by: Terrell Solis Jr., MD (09/03/2018 4:41 PM) [facility] [place]
[2018-09-03] MEDS: LACTOBACILLUS RHAMNOSUS GG 1 CAPSULE. PO SCH (19:54)
[2018-09-03] MEDS: DOXYCYCLINE HYCLATE 100 MG TABLET PO SCH (19:54)
[2018-09-03] MEDS: INSULIN GLARGINE 300 UNITS/3 ML INSULN.PEN. SQ SCH (19:55)
[2018-09-03] MEDS: traZODone 100 MG TABLET. PO SCH (19:55)
[2018-09-04] MEDS: LEVOTHYROXINE 100 MCG TABLET PO SCH (05:49)
[2018-09-04 06:16] VITALS: BP 91/55
[2018-09-04] MEDS: DIVALPROEX 125 MG CAP.SPRINK PO SCH ×2 (07:58→17:18)
[2018-09-04] MEDS: ASCORBIC ACID 500 MG TABLET PO SCH ×2 (07:59→17:18)
[2018-09-04] MEDS: metFORMIN 500 MG TABLET PO SCH ×2 (07:59→17:18)
[2018-09-04] MEDS: DULoxetine HCL 60 MG CAPSULE.DR PO SCH (08:00)
[2018-09-04] MEDS: INSULIN LISPRO 300 UNITS/3 ML INSULN.PEN. SQ SCH ×3 (08:00→17:22)
[2018-09-04] MEDS: LACTOBACILLUS RHAMNOSUS GG 1 CAPSULE. PO SCH ×2 (08:00→20:40)
[2018-09-04] MEDS: FOLIC ACID 1 MG TABLET PO SCH (08:01)
[2018-09-04] MEDS: MULTIVITAMIN with MINERAL TABLET. PO SCH (08:02)
[2018-09-04] MEDS: AMANTADINE HCL 100 MG CAPSULE PO SCH ×2 (08:02→20:43)
[2018-09-04] MEDS: risperiDONE 0.5 MG TABLET. PO SCH ×2 (08:02→20:41)
[2018-09-04] MEDS: ALLOPURINOL 100 MG TABLET. PO SCH (08:03)
[2018-09-04] MEDS: CHOLECALCIFEROL (VITAMIN D3) 1,000 UNIT TABLET PO SCH (08:03)
[2018-09-04] MEDS: NYSTATIN TOPICAL POWDER 15GM BOTTLE. TP SCH ×2 (08:03→20:42)
[2018-09-04] MEDS: DOXYCYCLINE HYCLATE 100 MG TABLET PO SCH ×2 (08:03→20:41)
[2018-09-04] MEDS: DICLOFENAC SODIUM 1% TOPICAL GEL 100GM TUBE. TP SCH ×4 (08:05→20:43)
[2018-09-04] MEDS: LISINOPRIL 10 MG TABLET PO SCH (09:00)
[2018-09-04] MEDS: FUROSEMIDE 40 MG TABLET PO SCH (09:00)
[2018-09-04] MEDS: CARVEDILOL 12.5 MG TABLET PO SCH (09:43)
[2018-09-04 16:01] VITALS: BP 107/69
[2018-09-04] MEDS: CARVEDILOL 6.25 MG TABLET PO SCH (17:18)
--- NOTE | 2018-09-04 17:25 | PN ---
DATE: 09/04/2018 SUBJECTIVE: The patient was seen today, met with the staff, chart reviewed and also covering for Dr. Schneider. Staff reports the patient is withdrawn most of the time. She is deaf, has significant speech impediment. The patient also having chronic pain and also cellulitis of the lower extremities. OBSERVATION: VITAL SIGNS: Temperature 97.7, blood pressure 91/55, pulse 72, respirations 16, O2 sat 97%. Slept about 6 hours last night. MEDICATIONS: The patient's medications reviewed. Currently on trazodone, Risperdal, Cymbalta, Depakote and trazodone. The patient is not having any side effects. The patient is not presenting with any other physical complaints at this time. The patient's lab reviewed. ASSESSMENT: Bipolar disorder mixed with psychotic features, cognitive disorder, unspecified. PLAN: To continue with the treatment. LATHA AMES MD DR: LIZBET/satya JOB#: [id number] / [id number]
[2018-09-04] MEDS: traZODone 100 MG TABLET. PO SCH (20:41)
[2018-09-04] MEDS: INSULIN GLARGINE 300 UNITS/3 ML INSULN.PEN. SQ SCH (20:44)
[2018-09-05] MEDS: LEVOTHYROXINE 100 MCG TABLET PO SCH (05:59)
[2018-09-05] MEDS: ACETAMINOPHEN 325 MG TABLET PO PRN ×2 (05:59→12:08)
[2018-09-05 06:04] VITALS: BP 123/70
[2018-09-05 07:56] LABS: CALCIUM 8.5 mg/dL (8.5-10.1); GFR 56.7; POTASSIUM 4.1 mmol/L (3.5-5.1)
[2018-09-05] MEDS: INSULIN LISPRO 300 UNITS/3 ML INSULN.PEN. SQ SCH ×3 (07:57→17:23)
[2018-09-05] MEDS: CARVEDILOL 6.25 MG TABLET PO SCH ×2 (08:01→17:24)
[2018-09-05] MEDS: DIVALPROEX 125 MG CAP.SPRINK PO SCH ×2 (08:01→17:24)
[2018-09-05] MEDS: metFORMIN 500 MG TABLET PO SCH ×2 (08:02→17:24)
[2018-09-05] MEDS: ASCORBIC ACID 500 MG TABLET PO SCH ×2 (08:03→17:24)
[2018-09-05] MEDS: LACTOBACILLUS RHAMNOSUS GG 1 CAPSULE. PO SCH ×2 (08:03→20:40)
[2018-09-05] MEDS: DULoxetine HCL 60 MG CAPSULE.DR PO SCH (08:03)
[2018-09-05] MEDS: FUROSEMIDE 40 MG TABLET PO SCH (08:03)
[2018-09-05] MEDS: FOLIC ACID 1 MG TABLET PO SCH (08:03)
[2018-09-05] MEDS: LISINOPRIL 10 MG TABLET PO SCH (08:04)
[2018-09-05] MEDS: risperiDONE 0.5 MG TABLET. PO SCH ×2 (08:04→20:40)
[2018-09-05] MEDS: MULTIVITAMIN with MINERAL TABLET. PO SCH (08:07)
[2018-09-05] MEDS: AMANTADINE HCL 100 MG CAPSULE PO SCH ×2 (08:07→20:42)
[2018-09-05] MEDS: CHOLECALCIFEROL (VITAMIN D3) 1,000 UNIT TABLET PO SCH (08:08)
[2018-09-05] MEDS: DOXYCYCLINE HYCLATE 100 MG TABLET PO SCH ×2 (08:08→20:40)
[2018-09-05] MEDS: DICLOFENAC SODIUM 1% TOPICAL GEL 100GM TUBE. TP SCH ×4 (08:09→20:45)
[2018-09-05] MEDS: NYSTATIN TOPICAL POWDER 15GM BOTTLE. TP SCH ×2 (08:09→20:45)
[2018-09-05] MEDS: ALLOPURINOL 100 MG TABLET. PO SCH (08:09)
[2018-09-05 16:43] VITALS: BP 139/63
[2018-09-05] MEDS: traZODone 100 MG TABLET. PO SCH (20:40)
[2018-09-05] MEDS: INSULIN GLARGINE 300 UNITS/3 ML INSULN.PEN. SQ SCH (20:46)
[2018-09-06 05:56] VITALS: BP 111/69
[2018-09-06] MEDS: LEVOTHYROXINE 100 MCG TABLET PO SCH (06:11)
[2018-09-06] MEDS: INSULIN LISPRO 300 UNITS/3 ML INSULN.PEN. SQ SCH ×3 (08:00→17:42)
[2018-09-06] MEDS: DOXYCYCLINE HYCLATE 100 MG TABLET PO SCH ×2 (08:07→20:03)
[2018-09-06] MEDS: risperiDONE 0.5 MG TABLET. PO SCH ×2 (08:07→20:04)
[2018-09-06] MEDS: DIVALPROEX 125 MG CAP.SPRINK PO SCH ×2 (08:07→17:39)
[2018-09-06] MEDS: FOLIC ACID 1 MG TABLET PO SCH (08:08)
[2018-09-06] MEDS: DULoxetine HCL 60 MG CAPSULE.DR PO SCH (08:08)
[2018-09-06] MEDS: MULTIVITAMIN with MINERAL TABLET. PO SCH (08:08)
[2018-09-06] MEDS: ALLOPURINOL 100 MG TABLET. PO SCH (08:08)
[2018-09-06] MEDS: CARVEDILOL 6.25 MG TABLET PO SCH ×2 (08:08→17:40)
[2018-09-06] MEDS: CHOLECALCIFEROL (VITAMIN D3) 1,000 UNIT TABLET PO SCH (08:09)
[2018-09-06] MEDS: LACTOBACILLUS RHAMNOSUS GG 1 CAPSULE. PO SCH ×2 (08:09→20:03)
[2018-09-06] MEDS: ASCORBIC ACID 500 MG TABLET PO SCH ×2 (08:10→17:38)
[2018-09-06] MEDS: metFORMIN 500 MG TABLET PO SCH ×2 (08:10→17:39)
[2018-09-06] MEDS: LISINOPRIL 10 MG TABLET PO SCH (08:10)
[2018-09-06] MEDS: FUROSEMIDE 40 MG TABLET PO SCH (08:10)
[2018-09-06] MEDS: AMANTADINE HCL 100 MG CAPSULE PO SCH ×2 (08:18→20:03)
[2018-09-06] MEDS: DICLOFENAC SODIUM 1% TOPICAL GEL 100GM TUBE. TP SCH ×4 (08:19→20:10)
[2018-09-06] MEDS: NYSTATIN TOPICAL POWDER 15GM BOTTLE. TP SCH ×2 (08:20→20:04)
--- NOTE | 2018-09-06 09:19 | PDOC ---
Exam Note: Johnnie Note: Late entry for DOS 09/05/2018. Please also refer to the separate dictated note~ for this date of service dictated separately.~Patient seen individually. Discussed the patient with Nursing staff reviewed the chart.~Reviewed interim history and current functioning. Reviewed vital signs,~Labs/ Radiology~and current medications noted below. Continue current treatment with the changes noted in the dictated addendum note Assessment: Vital Signs: VS - Last 72 Hours, by Label Date Time Temp Pulse Resp B/P (MAP) Pulse Ox O2 Delivery O2 Flow Rate FiO2 09/06/18 08:10 70 111/69 09/06/18 08:08 70 111/69 09/06/18 05:56 98.1 70 19 111/69 (83) 99 09/05/18 17:24 80 139/63 09/05/18 16:43 98.3 80 16 139/63 (88) 98 09/05/18 09:53 97.8 09/05/18 08:04 70 123/70 09/05/18 08:01 70 123/70 09/05/18 06:04 99.0 70 14 123/70 (87) 100 09/04/18 17:18 76 107/69 09/04/18 16:01 97.9 76 20 107/69 (82) 99 09/04/18 06:16 97.7 73 16 91/55 (67) 97 09/03/18 15:58 98.0 65 18 90/48 (62) 100 Room Air Vital Signs Date Time Temp Pulse Resp B/P (MAP) Pulse Ox O2 Delivery O2 Flow Rate FiO2 09/06/18 08:10 70 111/69 09/06/18 05:56 98.1 19 99 09/03/18 15:58 Room Air I&O Intake and Output 09/06/18 07:01 Intake Total 2040 ml Balance 2040 ml Intake Oral 2040 ml Labs: Laboratory Tests Test 09/05/18 11:57 09/05/18 17:13 09/05/18 18:56 09/06/18 07:15 Glucose (Fingerstick) 123 mg/dL (70-99) H 131 mg/dL (70-99) H 144 mg/dL (70-99) H 90 mg/dL (70-99) Current Medications: Meds: Current Medications Acetaminophen (Tylenol) 650 mg PRN Q6HRS PRN PO PAIN / TEMP Last administered on 09/05/18at 12:08; Start 08/11/18 at 21:00 Multi-Ingredient Ointment (Analgesic [place]) 1 yaima PRN QID PRN TP MUSCLE PAIN; Start 08/11/18 at 21:00 Al Hydroxide/Mg Hydroxide (Mylanta Plus Xs) 15 ml PRN AFTMEALHC PRN PO DYSPEPSIA; Start 08/11/18 at 21:00 Magnesium Hydroxide (Milk Of Magnesia) 2,400 mg PRN QHS PRN PO CONSTIPATION; Start 08/11/18 at 21:00 Alprazolam (Xanax) 0.5 mg PRN Q6HRS PRN PO ANXIETY / AGITATION Last administered on 08/21/18at 20:06; Start 08/11/18 at 22:30 Divalproex Sodium (Depakote Sprinkles) 250 mg BIDWMEALS PO Last administered on 08/13/18at 18:08; Start 08/12/18 at 08:00; Stop 08/13/18 at 20:26; Status DC Duloxetine HCl (Cymbalta) 60 mg BIDWMEALS PO Last administered on 08/13/18at 18 :08; Start 08/12/18 at 08:00; Stop 08/13/18 at 20:26; Status DC Risperidone (RisperDAL) 2 mg BIDWMEALS PO Last administered on 08/14/18at 17:45 ; Start 08/12/18 at 08:00; Stop 08/14/18 at 18:45; Status DC Trazodone HCl (Desyrel) 100 mg HS PO Last administered on 09/05/18at 20:40; Start 08/11/18 at 22:30 Ascorbic Acid (Vitamin C) 500 mg BIDWMEALS PO Last administered on 09/06/18 08 :10; Start 08/12/18 at 08:00 Calcium Carbonate/ Glycine (Tums) 500 mg PRN Q6HRS PRN PO INDIGESTION; Start 08/11/18 at 22:15 Vitamin D (Vitamin D3) 2,000 unit DAILY PO Last administered on 09/06/18 08:09 ; Start 08/12/18 at 09:00 Diclofenac Sodium (Voltaren) 1 yaima QID TP Last administered on 09/06/18 08:19 ; Start 08/12/18 at 09:00 Guaifenesin (Mucinex Er) 600 mg BIDWMEALS PO Last administered on 09/06/18 08: 07; Start 08/12/18 at 08:00 Acetaminophen/ Hydrocodone Bitart (Lortab 5/325) 1 tab PRN Q6HRS PRN PO PAIN; Start 08/11/18 at 22:15 Levothyroxine Sodium (Synthroid) 100 mcg DAILY06 PO Last administered on 06:11; Start 08/12/18 at 06:00 Lisinopril (Prinivil) 10 mg DAILY PO Last administered on 09/06/18 08:10; Start 08/12/18 at 09:00 Nitroglycerin (Nitrostat) 0.4 mg PRN Q5MIN PRN SL CHEST PAIN; Start 08/11/18 at 22:15 Nystatin (Nystop) 1 yaima BID TP Last administered on 09/06/18 08:20; Start at 09:00 Allopurinol (Zyloprim) 100 mg DAILY PO Last administered on 09/06/18 08:08; Start 08/12/18 at 09:00 Carvedilol (Coreg) 12.5 mg BIDWMEALS PO Last administered on 09/03/18 08:42; Start 08/12/18 at 08:00; Stop 09/04/18 at 11:25; Status DC Folic Acid (Folic Acid) 1 mg DAILY PO Last administered on 09/06/18 08:08; Start 08/12/18 at 09:00 Furosemide (Lasix) 40 mg DAILY PO Last administered on 09/06/18 08:10; Start 08/12/18 at 09:00 Insulin Human Lispro (HumaLOG) 5 units TIDWMEALS SQ Last administered on 17:23; Start 08/12/18 at 08:00 Insulin Glargine (Lantus) 10 units QHS SQ Last administered on 09/05/18 20:46 ; Start 08/11/18 at 23:00 Loperamide HCl (Imodium) 2 mg PRN Q6HRS PRN PO DIARRHEA; Start 08/11/18 at 22: 45 Non-Formulary Medication (Magnesium Hydroxide (Milk Of Magnesia)) 2,400 mg PRN DAILY PRN PO CONSTIPATION; Start 08/11/18 at 22:15; Status UNV Metformin HCl (Glucophage) 1,000 mg BIDWMEALS PO Last administered on 08:10; Start 08/12/18 at 08:00 Methotrexate (Rheumatrex) 15 mg WEEKLY PO Last administered on 09/01/18 08:28 ; Start 08/18/18 at 09:00 Multivitamins/ Calcium (Thera-M Plus) 1 tab DAILY PO Last administered on 08:08; Start 08/12/18 at 09:00 Glucose (Insta-Glucose) 15 gm PRN Q15MIN PRN PO LOW BLOOD SUGAR; Start at 08:15 Divalproex Sodium (Depakote Sprinkles) 500 mg BIDWMEALS PO ; Start 08/13/18 at 20:27; Stop 08/13/18 at 20:36; Status DC Duloxetine HCl (Cymbalta) 60 mg DAILY PO Last administered on 09/06/18 08:08; Start 08/14/18 at 09:00 Divalproex Sodium (Depakote Sprinkles) 500 mg BIDWMEALS PO Last administered on 09/06/18 08:07; Start 08/14/18 at 08:00 Risperidone (RisperDAL) 1.5 mg DAILY PO ; Start 08/14/18 at 19:00; Stop at 19:00; Status DC Risperidone (RisperDAL) 2 mg HS PO Last administered on 08/16/18at 18:51; Start 08/14/18 at 21:00; Stop 08/17/18 at 18:30; Status DC Risperidone (RisperDAL) 1.5 mg HS PO ; Start 08/18/18 at 21:00; Stop 08/18/18 at 21:00; Status DC Risperidone (RisperDAL) 1.5 mg DAILY PO Last administered on 08/17/18at 08:08; Start 08/15/18 at 09:00; Stop 08/17/18 at 18:30; Status DC Amantadine HCl (Symmetrel) 100 mg DAILY PO Last administered on 08/23/18 08:00 ; Start 08/17/18 at 09:00; Stop 08/23/18 at 21:37; Status DC Risperidone (RisperDAL) 1.5 mg BID PO Last administered on 08/19/18at 08:15; Start 08/17/18 at 21:00; Stop 08/19/18 at 15:58; Status DC Risperidone (RisperDAL) 1 mg BID PO Last administered on 08/22/18at 11:33; Start 08/19/18 at 21:00; Stop 08/22/18 at 17:30; Status DC Risperidone (RisperDAL) 1 mg QHS PO Last administered on 08/24/18 20:41; Start 08/22/18 at 21:00; Stop 08/25/18 at 18:41; Status DC Risperidone (RisperDAL) 0.5 mg DAILY PO Last administered on 08/25/18 11:14; Start 08/23/18 at 09:00; Stop 08/25/18 at 09:00; Status DC Amantadine HCl (Symmetrel) 100 mg BID PO Last administered on 09/06/18 08:18; Start 08/24/18 at 09:00 Risperidone (RisperDAL) 1.5 mg BID PO Last administered on 09/06/18 08:07; Start 08/26/18 at 09:00 Risperidone (RisperDAL) 2 mg HS PO Last administered on 08/25/18 20:03; Start 08/25/18 at 21:00; Stop 08/25/18 at 21:01; Status DC Trazodone HCl (Desyrel) 100 mg PRN QHS PRN PO INSOMNIA Last administered on 08/31 02:29; Start 08/30/18 at 18:45 Potassium Chloride (Klor-Con) 20 meq TID PO Last administered on 09/03/18 14: 25; Start 08/31/18 at 21:00; Stop 09/03/18 at 17:14; Status DC Doxycycline Hyclate (Vibra-Tab) 100 mg BID PO Last administered on 09/06/18 08 :07; Start 09/03/18 at 21:00; Stop 09/13/18 at 20:59 Lactobacillus Rhamnosus (Culturelle) 1 cap BID PO Last administered on at 08:09; Start 09/03/18 at 21:00 Carvedilol (Coreg) 6.25 mg BIDWMEALS PO Last administered on 09/06/18at 08:08; Start 09/04/18 at 17:00 Active Scripts Active Reported Xanax (Alprazolam) 0.5 Mg Tablet 0.5 Mg PO PRN Q6HRS PRN Hydrocodone-Apap 5-325 (Hydrocodone Bit/Acetaminophen) 1 Each Tablet 1 Tab PO PRN Q6HRS PRN Voltaren (Diclofenac Sodium) 100 Gm Gel..gram. 4 Gm TP QID Nystatin 15 Gm Powder 1 Yaima TP BID Tums (Calcium Carbonate) 200 Mg Tab.chew 2 Tab PO PRN Q6HRS PRN Nitrostat (Nitroglycerin) 0.4 Mg Tab.subl 0.4 Mg SL PRN Q5MIN PRN Milk Of Magnesia (Magnesium Hydroxide) 2,400 Mg/10 Ml Oral.susp 2,400 Mg PO PRN DAILY PRN Loperamide (Loperamide Hcl) 2 Mg Tablet 2 Mg PO PRN Q6HRS PRN Vitamin C (Ascorbic Acid) 500 Mg Tablet 500 Mg PO BIDWMEALS Risperdal (Risperidone) 2 Mg Tablet 2 Mg PO BIDWMEALS Mucinex (Guaifenesin) 600 Mg Tablet.er 600 Mg PO BIDWMEALS Metformin Hcl 1,000 Mg Tablet 1,000 Mg PO BIDWMEALS Cymbalta (Duloxetine Hcl) 60 Mg Capsule.dr 60 Mg PO BIDWMEALS Depakote Sprinkle (Divalproex Sodium) 125 Mg Cap.sprink 250 Mg PO BIDWMEALS Coreg (Carvedilol) 12.5 Mg Tablet 12.5 Mg PO BIDWMEALS Vitamin D3 (Cholecalciferol (Vitamin D3)) 1,000 Unit Tablet 2,000 Unit PO DAILY Trazodone Hcl 100 Mg Tablet 100 Mg PO HS Multivitamins (Multivitamin) 1 Each Tablet 1 Tab PO DAILY Methotrexate (Methotrexate Sodium) 2.5 Mg Tablet 15 Mg PO WEEKLY Lisinopril 10 Mg Tablet 10 Mg PO DAILY Levothyroxine Sodium 100 Mcg Tablet 100 Mcg PO DAILYAC Lasix (Furosemide) 40 Mg Tablet 40 Mg PO DAILY Folic Acid 1 Mg Tablet 1 Mg PO DAILY Allopurinol 100 Mg Tablet 100 Mg PO DAILY Novolog (Insulin Aspart) 100 Unit/1 Ml Vial 5 Unit SQ TIDWMEALS Levemir (Insulin Detemir) 100 Unit/1 Ml Vial 10 Unit SQ HS I have reviewed the current psychotropics carefully including drug interactions. Risk benefit ratio favors no change other than as noted in my dictated progress note. Diagnosis: Problems: (1) Anxiety disorder (2) Major depressive disorder, recurrent episode (3) Impulse control disorder (4) Dementia in Alzheimer's disease with delusions (5) Dementia in Alzheimer's disease with depression (6) Dementia, vascular, with delusions (7) Dementia, vascular, with depression KAITLIN DREW MD Sep 06, 2018 09:19
[2018-09-06 17:19] VITALS: BP 131/91
[2018-09-06] MEDS: traZODone 100 MG TABLET. PO SCH (20:03)
[2018-09-06] MEDS: INSULIN GLARGINE 300 UNITS/3 ML INSULN.PEN. SQ SCH (20:05)
--- NOTE | 2018-09-06 22:45 | PDOC ---
Exam Note: Johnnie Note: Please also refer to the separate dictated note~for this date of service dictated separately.~Patient seen individually. Discussed the patient with Nursing staff reviewed the chart.~Reviewed interim history and current functioning. Reviewed vital signs,~Labs/ Radiology~and current medications noted below. Continue current treatment with the changes noted in the dictated addendum note Assessment: Vital Signs: Vital Signs Date Time Temp Pulse Resp B/P (MAP) Pulse Ox O2 Delivery O2 Flow Rate FiO2 09/06/18 17:40 64 131/91 09/06/18 17:19 97.9 18 99 09/03/18 15:58 Room Air I&O Intake and Output 09/06/18 07:01 Intake Total 2040 ml Balance 2040 ml Intake Oral 2040 ml Labs: Laboratory Tests Test 09/06/18 07:15 09/06/18 11:08 09/06/18 17:12 09/06/18 19:14 Glucose (Fingerstick) 90 mg/dL (70-99) 208 mg/dL (70-99) H 117 mg/dL (70-99) H 145 mg/dL (70-99) H Current Medications: Meds: Current Medications Acetaminophen (Tylenol) 650 mg PRN Q6HRS PRN PO PAIN / TEMP Last administered on 09/05/18at 12:08; Start 08/11/18 at 21:00 Multi-Ingredient Ointment (Analgesic [place]) 1 yaima PRN QID PRN TP MUSCLE PAIN; Start 08/11/18 at 21:00 Al Hydroxide/Mg Hydroxide (Mylanta Plus Xs) 15 ml PRN AFTMEALHC PRN PO DYSPEPSIA; Start 08/11/18 at 21:00 Magnesium Hydroxide (Milk Of Magnesia) 2,400 mg PRN QHS PRN PO CONSTIPATION; Start 08/11/18 at 21:00 Alprazolam (Xanax) 0.5 mg PRN Q6HRS PRN PO ANXIETY / AGITATION Last administered on 08/21/18at 20:06; Start 08/11/18 at 22:30 Divalproex Sodium (Depakote Sprinkles) 250 mg BIDWMEALS PO Last administered on 08/13/18at 18:08; Start 08/12/18 at 08:00; Stop 08/13/18 at 20:26; Status DC Duloxetine HCl (Cymbalta) 60 mg BIDWMEALS PO Last administered on 08/13/18at 18 :08; Start 08/12/18 at 08:00; Stop 08/13/18 at 20:26; Status DC Risperidone (RisperDAL) 2 mg BIDWMEALS PO Last administered on 08/14/18at 17:45 ; Start 08/12/18 at 08:00; Stop 08/14/18 at 18:45; Status DC Trazodone HCl (Desyrel) 100 mg HS PO Last administered on 09/06/18 20:03; Start 08/11/18 at 22:30 Ascorbic Acid (Vitamin C) 500 mg BIDWMEALS PO Last administered on 09/06/18 17 :38; Start 08/12/18 at 08:00 Calcium Carbonate/ Glycine (Tums) 500 mg PRN Q6HRS PRN PO INDIGESTION; Start 08/11/18 at 22:15 Vitamin D (Vitamin D3) 2,000 unit DAILY PO Last administered on 09/06/18 08:09 ; Start 08/12/18 at 09:00 Diclofenac Sodium (Voltaren) 1 yaima QID TP Last administered on 09/06/18 20:10 ; Start 08/12/18 at 09:00 Guaifenesin (Mucinex Er) 600 mg BIDWMEALS PO Last administered on 09/06/18 17: 38; Start 08/12/18 at 08:00 Acetaminophen/ Hydrocodone Bitart (Lortab 5/325) 1 tab PRN Q6HRS PRN PO PAIN; Start 08/11/18 at 22:15 Levothyroxine Sodium (Synthroid) 100 mcg DAILY06 PO Last administered on 06:11; Start 08/12/18 at 06:00 Lisinopril (Prinivil) 10 mg DAILY PO Last administered on 09/06/18 08:10; Start 08/12/18 at 09:00 Nitroglycerin (Nitrostat) 0.4 mg PRN Q5MIN PRN SL CHEST PAIN; Start 08/11/18 at 22:15 Nystatin (Nystop) 1 yaima BID TP Last administered on 09/06/18 20:04; Start at 09:00 Allopurinol (Zyloprim) 100 mg DAILY PO Last administered on 09/06/18 08:08; Start 08/12/18 at 09:00 Carvedilol (Coreg) 12.5 mg BIDWMEALS PO Last administered on 09/03/18 08:42; Start 08/12/18 at 08:00; Stop 09/04/18 at 11:25; Status DC Folic Acid (Folic Acid) 1 mg DAILY PO Last administered on 09/06/18 08:08; Start 08/12/18 at 09:00 Furosemide (Lasix) 40 mg DAILY PO Last administered on 09/06/18 08:10; Start 08/12/18 at 09:00 Insulin Human Lispro (HumaLOG) 5 units TIDWMEALS SQ Last administered on 17:42; Start 08/12/18 at 08:00 Insulin Glargine (Lantus) 10 units QHS SQ Last administered on 09/06/18 20:05 ; Start 08/11/18 at 23:00 Loperamide HCl (Imodium) 2 mg PRN Q6HRS PRN PO DIARRHEA; Start 08/11/18 at 22: 45 Non-Formulary Medication (Magnesium Hydroxide (Milk Of Magnesia)) 2,400 mg PRN DAILY PRN PO CONSTIPATION; Start 08/11/18 at 22:15; Status UNV Metformin HCl (Glucophage) 1,000 mg BIDWMEALS PO Last administered on 17:39; Start 08/12/18 at 08:00 Methotrexate (Rheumatrex) 15 mg WEEKLY PO Last administered on 09/01/18 08:28 ; Start 08/18/18 at 09:00 Multivitamins/ Calcium (Thera-M Plus) 1 tab DAILY PO Last administered on 08:08; Start 08/12/18 at 09:00 Glucose (Insta-Glucose) 15 gm PRN Q15MIN PRN PO LOW BLOOD SUGAR; Start at 08:15 Divalproex Sodium (Depakote Sprinkles) 500 mg BIDWMEALS PO ; Start 08/13/18 at 20:27; Stop 08/13/18 at 20:36; Status DC Duloxetine HCl (Cymbalta) 60 mg DAILY PO Last administered on 09/06/18 08:08; Start 08/14/18 at 09:00 Divalproex Sodium (Depakote Sprinkles) 500 mg BIDWMEALS PO Last administered on 09/06/18at 17:39; Start 08/14/18 at 08:00 Risperidone (RisperDAL) 1.5 mg DAILY PO ; Start 08/14/18 at 19:00; Stop at 19:00; Status DC Risperidone (RisperDAL) 2 mg HS PO Last administered on 08/16/18at 18:51; Start 08/14/18 at 21:00; Stop 08/17/18 at 18:30; Status DC Risperidone (RisperDAL) 1.5 mg HS PO ; Start 08/18/18 at 21:00; Stop 08/18/18 at 21:00; Status DC Risperidone (RisperDAL) 1.5 mg DAILY PO Last administered on 08/17/18at 08:08; Start 08/15/18 at 09:00; Stop 08/17/18 at 18:30; Status DC Amantadine HCl (Symmetrel) 100 mg DAILY PO Last administered on 08/23/18 08:00 ; Start 08/17/18 at 09:00; Stop 08/23/18 at 21:37; Status DC Risperidone (RisperDAL) 1.5 mg BID PO Last administered on 08/19/18at 08:15; Start 08/17/18 at 21:00; Stop 08/19/18 at 15:58; Status DC Risperidone (RisperDAL) 1 mg BID PO Last administered on 08/22/18at 11:33; Start 08/19/18 at 21:00; Stop 08/22/18 at 17:30; Status DC Risperidone (RisperDAL) 1 mg QHS PO Last administered on 08/24/18at 20:41; Start 08/22/18 at 21:00; Stop 08/25/18 at 18:41; Status DC Risperidone (RisperDAL) 0.5 mg DAILY PO Last administered on 08/25/18 11:14; Start 08/23/18 at 09:00; Stop 08/25/18 at 09:00; Status DC Amantadine HCl (Symmetrel) 100 mg BID PO Last administered on 09/06/18 20:03; Start 08/24/18 at 09:00 Risperidone (RisperDAL) 1.5 mg BID PO Last administered on 09/06/18 20:04; Start 08/26/18 at 09:00 Risperidone (RisperDAL) 2 mg HS PO Last administered on 08/25/18 20:03; Start 08/25/18 at 21:00; Stop 08/25/18 at 21:01; Status DC Trazodone HCl (Desyrel) 100 mg PRN QHS PRN PO INSOMNIA Last administered on 08/31 02:29; Start 08/30/18 at 18:45 Potassium Chloride (Klor-Con) 20 meq TID PO Last administered on 09/03/18 14: 25; Start 08/31/18 at 21:00; Stop 09/03/18 at 17:14; Status DC Doxycycline Hyclate (Vibra-Tab) 100 mg BID PO Last administered on 09/06/18 20 :03; Start 09/03/18 at 21:00; Stop 09/13/18 at 20:59 Lactobacillus Rhamnosus (Culturelle) 1 cap BID PO Last administered on 20:03; Start 09/03/18 at 21:00 Carvedilol (Coreg) 6.25 mg BIDWMEALS PO Last administered on 09/06/18 17:40; Start 09/04/18 at 17:00 Active Scripts Active Reported Xanax (Alprazolam) 0.5 Mg Tablet 0.5 Mg PO PRN Q6HRS PRN Hydrocodone-Apap 5-325 (Hydrocodone Bit/Acetaminophen) 1 Each Tablet 1 Tab PO PRN Q6HRS PRN Voltaren (Diclofenac Sodium) 100 Gm Gel..gram. 4 Gm TP QID Nystatin 15 Gm Powder 1 Yaima TP BID Tums (Calcium Carbonate) 200 Mg Tab.chew 2 Tab PO PRN Q6HRS PRN Nitrostat (Nitroglycerin) 0.4 Mg Tab.subl 0.4 Mg SL PRN Q5MIN PRN Milk Of Magnesia (Magnesium Hydroxide) 2,400 Mg/10 Ml Oral.susp 2,400 Mg PO PRN DAILY PRN Loperamide (Loperamide Hcl) 2 Mg Tablet 2 Mg PO PRN Q6HRS PRN Vitamin C (Ascorbic Acid) 500 Mg Tablet 500 Mg PO BIDWMEALS Risperdal (Risperidone) 2 Mg Tablet 2 Mg PO BIDWMEALS Mucinex (Guaifenesin) 600 Mg Tablet.er 600 Mg PO BIDWMEALS Metformin Hcl 1,000 Mg Tablet 1,000 Mg PO BIDWMEALS Cymbalta (Duloxetine Hcl) 60 Mg Capsule.dr 60 Mg PO BIDWMEALS Depakote Sprinkle (Divalproex Sodium) 125 Mg Cap.sprink 250 Mg PO BIDWMEALS Coreg (Carvedilol) 12.5 Mg Tablet 12.5 Mg PO BIDWMEALS Vitamin D3 (Cholecalciferol (Vitamin D3)) 1,000 Unit Tablet 2,000 Unit PO DAILY Trazodone Hcl 100 Mg Tablet 100 Mg PO HS Multivitamins (Multivitamin) 1 Each Tablet 1 Tab PO DAILY Methotrexate (Methotrexate Sodium) 2.5 Mg Tablet 15 Mg PO WEEKLY Lisinopril 10 Mg Tablet 10 Mg PO DAILY Levothyroxine Sodium 100 Mcg Tablet 100 Mcg PO DAILYAC Lasix (Furosemide) 40 Mg Tablet 40 Mg PO DAILY Folic Acid 1 Mg Tablet 1 Mg PO DAILY Allopurinol 100 Mg Tablet 100 Mg PO DAILY Novolog (Insulin Aspart) 100 Unit/1 Ml Vial 5 Unit SQ TIDWMEALS Levemir (Insulin Detemir) 100 Unit/1 Ml Vial 10 Unit SQ HS I have reviewed the current psychotropics carefully including drug interactions. Risk benefit ratio favors no change other than as noted in my dictated progress note. Diagnosis: Problems: (1) Anxiety disorder (2) Major depressive disorder, recurrent episode (3) Impulse control disorder (4) Dementia in Alzheimer's disease with delusions (5) Dementia in Alzheimer's disease with depression (6) Dementia, vascular, with delusions (7) Dementia, vascular, with depression KAITLIN DREW MD Sep 06, 2018 22:45
--- NOTE | 2018-09-07 01:56 | PN ---
DATE: 09/05/2018 PSYCHIATRIC PROGRESS NOTE This late entry 09/05/2018 covers elements not covered in my initial note. SUBJECTIVE: I met with the patient in the evening. The patient slept 8-3/4 hours previous evening. She has been more appropriate, but most of communication with her is nonverbal since she is unable to hear or speak. REVIEW OF SYSTEMS: No CV, , pulmonary, eye system symptoms on review. MENTAL STATUS EXAM: Oriented to herself, situations. Speech as above. Abstraction fair. Computation difficult to assess. Language function intact. Mood and affect less psychotic, less labile. She has not been defecating on the sofas like she started to do once we had significantly reduced Risperdal. LABORATORY DATA: Reviewed. IMPRESSION: Bipolar 1 disorder, mixed with psychotic features, in partial remission. Rest unchanged from initial note. PLAN: No change from initial note. Reviewed information with Dr. Oneill who had covered for me for the past few days. KAITLIN DREW MD DR: STEFAN/satya JOB#: [id number] / [id number]
[2018-09-07] MEDS: LEVOTHYROXINE 100 MCG TABLET PO SCH (05:05)
[2018-09-07 05:48] VITALS: BP 98/60
[2018-09-07] MEDS: metFORMIN 500 MG TABLET PO SCH ×2 (08:12→17:28)
[2018-09-07] MEDS: risperiDONE 0.5 MG TABLET. PO SCH ×2 (08:12→19:46)
[2018-09-07] MEDS: DIVALPROEX 125 MG CAP.SPRINK PO SCH ×2 (08:12→17:28)
[2018-09-07] MEDS: NYSTATIN TOPICAL POWDER 15GM BOTTLE. TP SCH ×2 (08:12→19:49)
[2018-09-07] MEDS: DULoxetine HCL 60 MG CAPSULE.DR PO SCH (08:12)
[2018-09-07] MEDS: CHOLECALCIFEROL (VITAMIN D3) 1,000 UNIT TABLET PO SCH (08:13)
[2018-09-07] MEDS: FOLIC ACID 1 MG TABLET PO SCH (08:13)
[2018-09-07] MEDS: FUROSEMIDE 40 MG TABLET PO SCH (08:13)
[2018-09-07] MEDS: LACTOBACILLUS RHAMNOSUS GG 1 CAPSULE. PO SCH ×2 (08:13→19:46)
[2018-09-07] MEDS: MULTIVITAMIN with MINERAL TABLET. PO SCH (08:13)
[2018-09-07] MEDS: ALLOPURINOL 100 MG TABLET. PO SCH (08:13)
[2018-09-07] MEDS: DOXYCYCLINE HYCLATE 100 MG TABLET PO SCH ×2 (08:13→19:46)
[2018-09-07] MEDS: CARVEDILOL 6.25 MG TABLET PO SCH ×2 (08:14→17:29)
[2018-09-07] MEDS: LISINOPRIL 10 MG TABLET PO SCH (08:14)
[2018-09-07] MEDS: ASCORBIC ACID 500 MG TABLET PO SCH ×2 (08:14→17:28)
[2018-09-07] MEDS: AMANTADINE HCL 100 MG CAPSULE PO SCH ×2 (08:15→19:50)
[2018-09-07] MEDS: DICLOFENAC SODIUM 1% TOPICAL GEL 100GM TUBE. TP SCH ×5 (08:16→19:48)
[2018-09-07] MEDS: INSULIN LISPRO 300 UNITS/3 ML INSULN.PEN. SQ SCH ×3 (08:22→17:00)
[2018-09-07] MEDS: HYDROcodone/APAP 5/325MG 1 TAB TABLET PO PRN (12:40)
[2018-09-07 15:53] VITALS: BP 115/61
[2018-09-07] MEDS: traZODone 100 MG TABLET. PO SCH (19:46)
[2018-09-07] MEDS: INSULIN GLARGINE 300 UNITS/3 ML INSULN.PEN. SQ SCH (19:51)
--- NOTE | 2018-09-07 21:03 | PN ---
DATE: 09/06/2018 PSYCHIATRIC PROGRESS NOTE This late entry 09/06/2018 covers elements not covered in my initial note. SUBJECTIVE: I met with the patient in the evening. The patient slept 7 hours previous evening. Per nursing report, the patient is doing reasonably well, but she has been more anxious and asking for more help even for things she is capable of doing for herself. Staff is addressing this with her and she is responding positively. She is extremely hard of hearing. Most of the communication was writing on the white board and nonverbal communication, unable to speak consequent to her congenital hearing loss. REVIEW OF SYSTEMS: No specific CV, , GI, eye system symptoms on review. Reliability poor. MENTAL STATUS EXAM: Oriented to herself and situation. Speech as above. Abstraction fair, computation impaired, language function intact, attention span short. Mood and affect, somewhat anxious, at times labile, but improved. No suicidal or homicidal ideation. LABORATORY DATA: Reviewed. IMPRESSION: Bipolar 1 disorder, mixed with psychotic features, in partial remission; anxiety disorder, unspecified. Rest as above. PLAN: Continue the patient on her current psychotropics. Valproic acid level therapeutic at 71. Rest unchanged from initial note. MAN Vanesa DREW MD DR: STEFAN/satya JOB#: [id number] / [id number]
--- NOTE | 2018-09-07 22:46 | PDOC ---
Exam Note: Johnnie Note: Please also refer to the separate dictated note~for this date of service dictated separately.~Patient seen individually. Discussed the patient with Nursing staff reviewed the chart.~Reviewed interim history and current functioning. Reviewed vital signs,~Labs/ Radiology~and current medications noted below. Continue current treatment with the changes noted in the dictated addendum note Assessment: Vital Signs: Vital Signs Date Time Temp Pulse Resp B/P (MAP) Pulse Ox O2 Delivery O2 Flow Rate FiO2 09/07/18 17:29 82 115/61 09/07/18 15:53 98.1 20 99 09/07/18 14:40 Room Air I&O Intake and Output 09/07/18 07:01 Intake Total 1320 ml Balance 1320 ml Intake Oral 1320 ml # Voids 1 Labs: Laboratory Tests Test 09/07/18 07:05 09/07/18 11:41 09/07/18 16:28 09/07/18 19:09 Glucose (Fingerstick) 145 mg/dL (70-99) H 127 mg/dL (70-99) H 87 mg/dL (70-99) 162 mg/dL (70-99) H Current Medications: Meds: Current Medications Acetaminophen (Tylenol) 650 mg PRN Q6HRS PRN PO PAIN / TEMP Last administered on 09/05/18at 12:08; Start 08/11/18 at 21:00 Multi-Ingredient Ointment (Analgesic [place]) 1 yaima PRN QID PRN TP MUSCLE PAIN; Start 08/11/18 at 21:00 Al Hydroxide/Mg Hydroxide (Mylanta Plus Xs) 15 ml PRN AFTMEALHC PRN PO DYSPEPSIA; Start 08/11/18 at 21:00 Magnesium Hydroxide (Milk Of Magnesia) 2,400 mg PRN QHS PRN PO CONSTIPATION; Start 08/11/18 at 21:00 Alprazolam (Xanax) 0.5 mg PRN Q6HRS PRN PO ANXIETY / AGITATION Last administered on 08/21/18at 20:06; Start 08/11/18 at 22:30 Divalproex Sodium (Depakote Sprinkles) 250 mg BIDWMEALS PO Last administered on 08/13/18at 18:08; Start 08/12/18 at 08:00; Stop 08/13/18 at 20:26; Status DC Duloxetine HCl (Cymbalta) 60 mg BIDWMEALS PO Last administered on 08/13/18at 18 :08; Start 08/12/18 at 08:00; Stop 08/13/18 at 20:26; Status DC Risperidone (RisperDAL) 2 mg BIDWMEALS PO Last administered on 08/14/18at 17:45 ; Start 08/12/18 at 08:00; Stop 08/14/18 at 18:45; Status DC Trazodone HCl (Desyrel) 100 mg HS PO Last administered on 09/07/18 19:46; Start 08/11/18 at 22:30 Ascorbic Acid (Vitamin C) 500 mg BIDWMEALS PO Last administered on 09/07/18 17 :28; Start 08/12/18 at 08:00 Calcium Carbonate/ Glycine (Tums) 500 mg PRN Q6HRS PRN PO INDIGESTION; Start 08/11/18 at 22:15 Vitamin D (Vitamin D3) 2,000 unit DAILY PO Last administered on 09/07/18 08:13 ; Start 08/12/18 at 09:00 Diclofenac Sodium (Voltaren) 1 yaima QID TP Last administered on 09/07/18 19:48 ; Start 08/12/18 at 09:00 Guaifenesin (Mucinex Er) 600 mg BIDWMEALS PO Last administered on 09/07/18 17: 28; Start 08/12/18 at 08:00 Acetaminophen/ Hydrocodone Bitart (Lortab 5/325) 1 tab PRN Q6HRS PRN PO PAIN Last administered on 09/07/18 12:40; Start 08/11/18 at 22:15 Levothyroxine Sodium (Synthroid) 100 mcg DAILY06 PO Last administered on 05:05; Start 08/12/18 at 06:00 Lisinopril (Prinivil) 10 mg DAILY PO Last administered on 09/07/18 08:14; Start 08/12/18 at 09:00 Nitroglycerin (Nitrostat) 0.4 mg PRN Q5MIN PRN SL CHEST PAIN; Start 08/11/18 at 22:15 Nystatin (Nystop) 1 yaima BID TP Last administered on 09/07/18 19:49; Start at 09:00 Allopurinol (Zyloprim) 100 mg DAILY PO Last administered on 09/07/18 08:13; Start 08/12/18 at 09:00 Carvedilol (Coreg) 12.5 mg BIDWMEALS PO Last administered on 09/03/18 08:42; Start 08/12/18 at 08:00; Stop 09/04/18 at 11:25; Status DC Folic Acid (Folic Acid) 1 mg DAILY PO Last administered on 09/07/18 08:13; Start 08/12/18 at 09:00 Furosemide (Lasix) 40 mg DAILY PO Last administered on 09/07/18 08:13; Start 08/12/18 at 09:00 Insulin Human Lispro (HumaLOG) 5 units TIDWMEALS SQ Last administered on 12:44; Start 08/12/18 at 08:00 Insulin Glargine (Lantus) 10 units QHS SQ Last administered on 09/07/18 19:51 ; Start 08/11/18 at 23:00 Loperamide HCl (Imodium) 2 mg PRN Q6HRS PRN PO DIARRHEA; Start 08/11/18 at 22: 45 Non-Formulary Medication (Magnesium Hydroxide (Milk Of Magnesia)) 2,400 mg PRN DAILY PRN PO CONSTIPATION; Start 08/11/18 at 22:15; Status UNV Metformin HCl (Glucophage) 1,000 mg BIDWMEALS PO Last administered on 17:28; Start 08/12/18 at 08:00 Methotrexate (Rheumatrex) 15 mg WEEKLY PO Last administered on 09/01/18 08:28 ; Start 08/18/18 at 09:00 Multivitamins/ Calcium (Thera-M Plus) 1 tab DAILY PO Last administered on 08:13; Start 08/12/18 at 09:00 Glucose (Insta-Glucose) 15 gm PRN Q15MIN PRN PO LOW BLOOD SUGAR; Start at 08:15 Divalproex Sodium (Depakote Sprinkles) 500 mg BIDWMEALS PO ; Start 08/13/18 at 20:27; Stop 08/13/18 at 20:36; Status DC Duloxetine HCl (Cymbalta) 60 mg DAILY PO Last administered on 09/07/18at 08:12; Start 08/14/18 at 09:00 Divalproex Sodium (Depakote Sprinkles) 500 mg BIDWMEALS PO Last administered on 09/07/18at 17:28; Start 08/14/18 at 08:00 Risperidone (RisperDAL) 1.5 mg DAILY PO ; Start 08/14/18 at 19:00; Stop at 19:00; Status DC Risperidone (RisperDAL) 2 mg HS PO Last administered on 08/16/18at 18:51; Start 08/14/18 at 21:00; Stop 08/17/18 at 18:30; Status DC Risperidone (RisperDAL) 1.5 mg HS PO ; Start 08/18/18 at 21:00; Stop 08/18/18 at 21:00; Status DC Risperidone (RisperDAL) 1.5 mg DAILY PO Last administered on 08/17/18at 08:08; Start 08/15/18 at 09:00; Stop 08/17/18 at 18:30; Status DC Amantadine HCl (Symmetrel) 100 mg DAILY PO Last administered on 08/23/18at 08:00 ; Start 08/17/18 at 09:00; Stop 08/23/18 at 21:37; Status DC Risperidone (RisperDAL) 1.5 mg BID PO Last administered on 08/19/18at 08:15; Start 08/17/18 at 21:00; Stop 08/19/18 at 15:58; Status DC Risperidone (RisperDAL) 1 mg BID PO Last administered on 08/22/18at 11:33; Start 08/19/18 at 21:00; Stop 08/22/18 at 17:30; Status DC Risperidone (RisperDAL) 1 mg QHS PO Last administered on 08/24/18at 20:41; Start 08/22/18 at 21:00; Stop 08/25/18 at 18:41; Status DC Risperidone (RisperDAL) 0.5 mg DAILY PO Last administered on 08/25/18at 11:14; Start 08/23/18 at 09:00; Stop 08/25/18 at 09:00; Status DC Amantadine HCl (Symmetrel) 100 mg BID PO Last administered on 09/07/18 19:50; Start 08/24/18 at 09:00 Risperidone (RisperDAL) 1.5 mg BID PO Last administered on 09/07/18 19:46; Start 08/26/18 at 09:00 Risperidone (RisperDAL) 2 mg HS PO Last administered on 08/25/18 20:03; Start 08/25/18 at 21:00; Stop 08/25/18 at 21:01; Status DC Trazodone HCl (Desyrel) 100 mg PRN QHS PRN PO INSOMNIA Last administered on 08/31 02:29; Start 08/30/18 at 18:45 Potassium Chloride (Klor-Con) 20 meq TID PO Last administered on 09/03/18 14: 25; Start 08/31/18 at 21:00; Stop 09/03/18 at 17:14; Status DC Doxycycline Hyclate (Vibra-Tab) 100 mg BID PO Last administered on 09/07/18 19 :46; Start 09/03/18 at 21:00; Stop 09/13/18 at 20:59 Lactobacillus Rhamnosus (Culturelle) 1 cap BID PO Last administered on 19:46; Start 09/03/18 at 21:00 Carvedilol (Coreg) 6.25 mg BIDWMEALS PO Last administered on 09/07/18 17:29; Start 09/04/18 at 17:00 Active Scripts Active Reported Xanax (Alprazolam) 0.5 Mg Tablet 0.5 Mg PO PRN Q6HRS PRN Hydrocodone-Apap 5-325 (Hydrocodone Bit/Acetaminophen) 1 Each Tablet 1 Tab PO PRN Q6HRS PRN Voltaren (Diclofenac Sodium) 100 Gm Gel..gram. 4 Gm TP QID Nystatin 15 Gm Powder 1 Yaima TP BID Tums (Calcium Carbonate) 200 Mg Tab.chew 2 Tab PO PRN Q6HRS PRN Nitrostat (Nitroglycerin) 0.4 Mg Tab.subl 0.4 Mg SL PRN Q5MIN PRN Milk Of Magnesia (Magnesium Hydroxide) 2,400 Mg/10 Ml Oral.susp 2,400 Mg PO PRN DAILY PRN Loperamide (Loperamide Hcl) 2 Mg Tablet 2 Mg PO PRN Q6HRS PRN Vitamin C (Ascorbic Acid) 500 Mg Tablet 500 Mg PO BIDWMEALS Risperdal (Risperidone) 2 Mg Tablet 2 Mg PO BIDWMEALS Mucinex (Guaifenesin) 600 Mg Tablet.er 600 Mg PO BIDWMEALS Metformin Hcl 1,000 Mg Tablet 1,000 Mg PO BIDWMEALS Cymbalta (Duloxetine Hcl) 60 Mg Capsule.dr 60 Mg PO BIDWMEALS Depakote Sprinkle (Divalproex Sodium) 125 Mg Cap.sprink 250 Mg PO BIDWMEALS Coreg (Carvedilol) 12.5 Mg Tablet 12.5 Mg PO BIDWMEALS Vitamin D3 (Cholecalciferol (Vitamin D3)) 1,000 Unit Tablet 2,000 Unit PO DAILY Trazodone Hcl 100 Mg Tablet 100 Mg PO HS Multivitamins (Multivitamin) 1 Each Tablet 1 Tab PO DAILY Methotrexate (Methotrexate Sodium) 2.5 Mg Tablet 15 Mg PO WEEKLY Lisinopril 10 Mg Tablet 10 Mg PO DAILY Levothyroxine Sodium 100 Mcg Tablet 100 Mcg PO DAILYAC Lasix (Furosemide) 40 Mg Tablet 40 Mg PO DAILY Folic Acid 1 Mg Tablet 1 Mg PO DAILY Allopurinol 100 Mg Tablet 100 Mg PO DAILY Novolog (Insulin Aspart) 100 Unit/1 Ml Vial 5 Unit SQ TIDWMEALS Levemir (Insulin Detemir) 100 Unit/1 Ml Vial 10 Unit SQ HS I have reviewed the current psychotropics carefully including drug interactions. Risk benefit ratio favors no change other than as noted in my dictated progress note. Diagnosis: Problems: (1) Anxiety disorder (2) Major depressive disorder, recurrent episode (3) Impulse control disorder (4) Dementia in Alzheimer's disease with delusions (5) Dementia in Alzheimer's disease with depression (6) Dementia, vascular, with delusions (7) Dementia, vascular, with depression KAITLIN DREW MD Sep 07, 2018 22:46
[2018-09-08 05:18] VITALS: BP 107/58
[2018-09-08] MEDS: LEVOTHYROXINE 100 MCG TABLET PO SCH (06:03)
[2018-09-08] MEDS: INSULIN LISPRO 300 UNITS/3 ML INSULN.PEN. SQ SCH ×3 (08:00→17:37)
[2018-09-08] MEDS: DIVALPROEX 125 MG CAP.SPRINK PO SCH ×2 (08:08→17:32)
[2018-09-08] MEDS: CARVEDILOL 6.25 MG TABLET PO SCH ×2 (08:08→17:31)
[2018-09-08] MEDS: metFORMIN 500 MG TABLET PO SCH ×2 (08:12→17:32)
[2018-09-08] MEDS: FOLIC ACID 1 MG TABLET PO SCH (08:13)
[2018-09-08] MEDS: FUROSEMIDE 40 MG TABLET PO SCH (08:13)
[2018-09-08] MEDS: ASCORBIC ACID 500 MG TABLET PO SCH ×2 (08:13→17:32)
[2018-09-08] MEDS: DULoxetine HCL 60 MG CAPSULE.DR PO SCH (08:13)
[2018-09-08] MEDS: LACTOBACILLUS RHAMNOSUS GG 1 CAPSULE. PO SCH ×2 (08:13→20:06)
[2018-09-08] MEDS: LISINOPRIL 10 MG TABLET PO SCH (08:14)
[2018-09-08] MEDS: risperiDONE 0.5 MG TABLET. PO SCH ×2 (08:16→20:05)
[2018-09-08] MEDS: METHOTREXATE SODIUM 2.5 MG TABLET PO SCH (08:16)
[2018-09-08] MEDS: CHOLECALCIFEROL (VITAMIN D3) 1,000 UNIT TABLET PO SCH (08:17)
[2018-09-08] MEDS: MULTIVITAMIN with MINERAL TABLET. PO SCH (08:17)
[2018-09-08] MEDS: DICLOFENAC SODIUM 1% TOPICAL GEL 100GM TUBE. TP SCH ×5 (08:17→20:08)
[2018-09-08] MEDS: AMANTADINE HCL 100 MG CAPSULE PO SCH ×2 (08:17→20:08)
[2018-09-08] MEDS: NYSTATIN TOPICAL POWDER 15GM BOTTLE. TP SCH ×2 (08:17→20:09)
[2018-09-08] MEDS: ALLOPURINOL 100 MG TABLET. PO SCH (08:17)
[2018-09-08] MEDS: DOXYCYCLINE HYCLATE 100 MG TABLET PO SCH ×2 (08:17→20:06)
[2018-09-08 15:57] VITALS: BP 151/64
[2018-09-08] MEDS: HYDROcodone/APAP 5/325MG 1 TAB TABLET PO PRN (17:32)
--- NOTE | 2018-09-08 20:04 | PN ---
DATE: 09/07/2018 This late entry 09/07/2018 covers elements not covered in my initial note. SUBJECTIVE: I met with the patient in the evening. The patient slept 6-1/4 hours previous night. She has had some episodes of crying and anxiety. The patient presented with coughing. She did take a nap in the morning, then did better. REVIEW OF SYSTEMS: Unable to speak. Much of communication was on a white board by writing. She is unable to hear. No CV, , pulmonary, eye system symptoms on review. MENTAL STATUS EXAM: Oriented to herself and situation. Speech is as above. Abstraction fair, computation impaired, language function intact, attention span short. Mood and affect is showing improvement with improved lability. No active suicidal or homicidal ideation. LABORATORY DATA: Reviewed. IMPRESSION: Bipolar 1 disorder, mixed with psychotic features; anxiety disorder, unspecified. Rest unchanged from above. PLAN: Continue psychotropics from initial note. Adjust further as clinically indicated. KAITLIN DREW MD DR: STEFAN/satya JOB#: [id number] / [id number]
[2018-09-08] MEDS: traZODone 100 MG TABLET. PO SCH (20:06)
[2018-09-08] MEDS: INSULIN GLARGINE 300 UNITS/3 ML INSULN.PEN. SQ SCH (20:13)
--- NOTE | 2018-09-08 23:15 | PDOC ---
Exam Note: Johnnie Note: Please also refer to the separate dictated note~for this date of service dictated separately.~Patient seen individually. Discussed the patient with Nursing staff reviewed the chart.~Reviewed interim history and current functioning. Reviewed vital signs,~Labs/ Radiology~and current medications noted below. Continue current treatment with the changes noted in the dictated addendum note Assessment: Vital Signs: Vital Signs Date Time Temp Pulse Resp B/P (MAP) Pulse Ox O2 Delivery O2 Flow Rate FiO2 09/08/18 18:44 18 96 Room Air 09/08/18 17:31 88 151/64 09/08/18 15:57 97.7 I&O Intake and Output 09/08/18 07:01 Intake Total 1200 ml Balance 1200 ml Intake Oral 1200 ml Labs: Laboratory Tests Test 09/08/18 07:36 09/08/18 11:59 09/08/18 16:58 09/08/18 19:15 Glucose (Fingerstick) 82 mg/dL (70-99) 128 mg/dL (70-99) H 180 mg/dL (70-99) H 116 mg/dL (70-99) H Current Medications: Meds: Current Medications Acetaminophen (Tylenol) 650 mg PRN Q6HRS PRN PO PAIN / TEMP Last administered on 09/05/18at 12:08; Start 08/11/18 at 21:00 Multi-Ingredient Ointment (Analgesic [place]) 1 yaima PRN QID PRN TP MUSCLE PAIN; Start 08/11/18 at 21:00 Al Hydroxide/Mg Hydroxide (Mylanta Plus Xs) 15 ml PRN AFTMEALHC PRN PO DYSPEPSIA; Start 08/11/18 at 21:00 Magnesium Hydroxide (Milk Of Magnesia) 2,400 mg PRN QHS PRN PO CONSTIPATION; Start 08/11/18 at 21:00 Alprazolam (Xanax) 0.5 mg PRN Q6HRS PRN PO ANXIETY / AGITATION Last administered on 08/21/18at 20:06; Start 08/11/18 at 22:30 Divalproex Sodium (Depakote Sprinkles) 250 mg BIDWMEALS PO Last administered on 08/13/18at 18:08; Start 08/12/18 at 08:00; Stop 08/13/18 at 20:26; Status DC Duloxetine HCl (Cymbalta) 60 mg BIDWMEALS PO Last administered on 08/13/18at 18 :08; Start 08/12/18 at 08:00; Stop 08/13/18 at 20:26; Status DC Risperidone (RisperDAL) 2 mg BIDWMEALS PO Last administered on 08/14/18at 17:45 ; Start 08/12/18 at 08:00; Stop 08/14/18 at 18:45; Status DC Trazodone HCl (Desyrel) 100 mg HS PO Last administered on 09/08/18 20:06; Start 08/11/18 at 22:30 Ascorbic Acid (Vitamin C) 500 mg BIDWMEALS PO Last administered on 09/08/18 17 :32; Start 08/12/18 at 08:00 Calcium Carbonate/ Glycine (Tums) 500 mg PRN Q6HRS PRN PO INDIGESTION; Start 08/11/18 at 22:15 Vitamin D (Vitamin D3) 2,000 unit DAILY PO Last administered on 09/08/18 08:17 ; Start 08/12/18 at 09:00 Diclofenac Sodium (Voltaren) 1 yaima QID TP Last administered on 09/08/18 20:08 ; Start 08/12/18 at 09:00 Guaifenesin (Mucinex Er) 600 mg BIDWMEALS PO Last administered on 09/08/18 17: 32; Start 08/12/18 at 08:00 Acetaminophen/ Hydrocodone Bitart (Lortab 5/325) 1 tab PRN Q6HRS PRN PO PAIN Last administered on 09/08/18 17:32; Start 08/11/18 at 22:15 Levothyroxine Sodium (Synthroid) 100 mcg DAILY06 PO Last administered on 06:03; Start 08/12/18 at 06:00 Lisinopril (Prinivil) 10 mg DAILY PO Last administered on 09/08/18 08:14; Start 08/12/18 at 09:00 Nitroglycerin (Nitrostat) 0.4 mg PRN Q5MIN PRN SL CHEST PAIN; Start 08/11/18 at 22:15 Nystatin (Nystop) 1 yaima BID TP Last administered on 09/08/18 20:09; Start at 09:00 Allopurinol (Zyloprim) 100 mg DAILY PO Last administered on 09/08/18 08:17; Start 08/12/18 at 09:00 Carvedilol (Coreg) 12.5 mg BIDWMEALS PO Last administered on 09/03/18 08:42; Start 08/12/18 at 08:00; Stop 09/04/18 at 11:25; Status DC Folic Acid (Folic Acid) 1 mg DAILY PO Last administered on 09/08/18 08:13; Start 08/12/18 at 09:00 Furosemide (Lasix) 40 mg DAILY PO Last administered on 09/08/18 08:13; Start 08/12/18 at 09:00 Insulin Human Lispro (HumaLOG) 5 units TIDWMEALS SQ Last administered on 17:37; Start 08/12/18 at 08:00 Insulin Glargine (Lantus) 10 units QHS SQ Last administered on 09/08/18 20:13 ; Start 08/11/18 at 23:00 Loperamide HCl (Imodium) 2 mg PRN Q6HRS PRN PO DIARRHEA; Start 08/11/18 at 22: 45 Non-Formulary Medication (Magnesium Hydroxide (Milk Of Magnesia)) 2,400 mg PRN DAILY PRN PO CONSTIPATION; Start 08/11/18 at 22:15; Status UNV Metformin HCl (Glucophage) 1,000 mg BIDWMEALS PO Last administered on 17:32; Start 08/12/18 at 08:00 Methotrexate (Rheumatrex) 15 mg WEEKLY PO Last administered on 09/08/18 08:16 ; Start 08/18/18 at 09:00 Multivitamins/ Calcium (Thera-M Plus) 1 tab DAILY PO Last administered on 08:17; Start 08/12/18 at 09:00 Glucose (Insta-Glucose) 15 gm PRN Q15MIN PRN PO LOW BLOOD SUGAR; Start at 08:15 Divalproex Sodium (Depakote Sprinkles) 500 mg BIDWMEALS PO ; Start 08/13/18 at 20:27; Stop 08/13/18 at 20:36; Status DC Duloxetine HCl (Cymbalta) 60 mg DAILY PO Last administered on 09/08/18at 08:13; Start 08/14/18 at 09:00 Divalproex Sodium (Depakote Sprinkles) 500 mg BIDWMEALS PO Last administered on 09/08/18at 17:32; Start 08/14/18 at 08:00 Risperidone (RisperDAL) 1.5 mg DAILY PO ; Start 08/14/18 at 19:00; Stop at 19:00; Status DC Risperidone (RisperDAL) 2 mg HS PO Last administered on 08/16/18at 18:51; Start 08/14/18 at 21:00; Stop 08/17/18 at 18:30; Status DC Risperidone (RisperDAL) 1.5 mg HS PO ; Start 08/18/18 at 21:00; Stop 08/18/18 at 21:00; Status DC Risperidone (RisperDAL) 1.5 mg DAILY PO Last administered on 08/17/18at 08:08; Start 08/15/18 at 09:00; Stop 08/17/18 at 18:30; Status DC Amantadine HCl (Symmetrel) 100 mg DAILY PO Last administered on 08/23/18at 08:00 ; Start 08/17/18 at 09:00; Stop 08/23/18 at 21:37; Status DC Risperidone (RisperDAL) 1.5 mg BID PO Last administered on 08/19/18at 08:15; Start 08/17/18 at 21:00; Stop 08/19/18 at 15:58; Status DC Risperidone (RisperDAL) 1 mg BID PO Last administered on 08/22/18at 11:33; Start 08/19/18 at 21:00; Stop 08/22/18 at 17:30; Status DC Risperidone (RisperDAL) 1 mg QHS PO Last administered on 08/24/18at 20:41; Start 08/22/18 at 21:00; Stop 08/25/18 at 18:41; Status DC Risperidone (RisperDAL) 0.5 mg DAILY PO Last administered on 08/25/18at 11:14; Start 08/23/18 at 09:00; Stop 08/25/18 at 09:00; Status DC Amantadine HCl (Symmetrel) 100 mg BID PO Last administered on 09/08/18 20:08; Start 08/24/18 at 09:00 Risperidone (RisperDAL) 1.5 mg BID PO Last administered on 09/08/18 20:05; Start 08/26/18 at 09:00 Risperidone (RisperDAL) 2 mg HS PO Last administered on 08/25/18 20:03; Start 08/25/18 at 21:00; Stop 08/25/18 at 21:01; Status DC Trazodone HCl (Desyrel) 100 mg PRN QHS PRN PO INSOMNIA Last administered on 08/31 02:29; Start 08/30/18 at 18:45 Potassium Chloride (Klor-Con) 20 meq TID PO Last administered on 09/03/18 14: 25; Start 08/31/18 at 21:00; Stop 09/03/18 at 17:14; Status DC Doxycycline Hyclate (Vibra-Tab) 100 mg BID PO Last administered on 09/08/18 20 :06; Start 09/03/18 at 21:00; Stop 09/13/18 at 20:59 Lactobacillus Rhamnosus (Culturelle) 1 cap BID PO Last administered on 20:06; Start 09/03/18 at 21:00 Carvedilol (Coreg) 6.25 mg BIDWMEALS PO Last administered on 09/08/18at 17:31; Start 09/04/18 at 17:00 Active Scripts Active Reported Xanax (Alprazolam) 0.5 Mg Tablet 0.5 Mg PO PRN Q6HRS PRN Hydrocodone-Apap 5-325 (Hydrocodone Bit/Acetaminophen) 1 Each Tablet 1 Tab PO PRN Q6HRS PRN Voltaren (Diclofenac Sodium) 100 Gm Gel..gram. 4 Gm TP QID Nystatin 15 Gm Powder 1 Yaima TP BID Tums (Calcium Carbonate) 200 Mg Tab.chew 2 Tab PO PRN Q6HRS PRN Nitrostat (Nitroglycerin) 0.4 Mg Tab.subl 0.4 Mg SL PRN Q5MIN PRN Milk Of Magnesia (Magnesium Hydroxide) 2,400 Mg/10 Ml Oral.susp 2,400 Mg PO PRN DAILY PRN Loperamide (Loperamide Hcl) 2 Mg Tablet 2 Mg PO PRN Q6HRS PRN Vitamin C (Ascorbic Acid) 500 Mg Tablet 500 Mg PO BIDWMEALS Risperdal (Risperidone) 2 Mg Tablet 2 Mg PO BIDWMEALS Mucinex (Guaifenesin) 600 Mg Tablet.er 600 Mg PO BIDWMEALS Metformin Hcl 1,000 Mg Tablet 1,000 Mg PO BIDWMEALS Cymbalta (Duloxetine Hcl) 60 Mg Capsule.dr 60 Mg PO BIDWMEALS Depakote Sprinkle (Divalproex Sodium) 125 Mg Cap.sprink 250 Mg PO BIDWMEALS Coreg (Carvedilol) 12.5 Mg Tablet 12.5 Mg PO BIDWMEALS Vitamin D3 (Cholecalciferol (Vitamin D3)) 1,000 Unit Tablet 2,000 Unit PO DAILY Trazodone Hcl 100 Mg Tablet 100 Mg PO HS Multivitamins (Multivitamin) 1 Each Tablet 1 Tab PO DAILY Methotrexate (Methotrexate Sodium) 2.5 Mg Tablet 15 Mg PO WEEKLY Lisinopril 10 Mg Tablet 10 Mg PO DAILY Levothyroxine Sodium 100 Mcg Tablet 100 Mcg PO DAILYAC Lasix (Furosemide) 40 Mg Tablet 40 Mg PO DAILY Folic Acid 1 Mg Tablet 1 Mg PO DAILY Allopurinol 100 Mg Tablet 100 Mg PO DAILY Novolog (Insulin Aspart) 100 Unit/1 Ml Vial 5 Unit SQ TIDWMEALS Levemir (Insulin Detemir) 100 Unit/1 Ml Vial 10 Unit SQ HS I have reviewed the current psychotropics carefully including drug interactions. Risk benefit ratio favors no change other than as noted in my dictated progress note. Diagnosis: Problems: (1) Anxiety disorder (2) Major depressive disorder, recurrent episode (3) Impulse control disorder (4) Dementia in Alzheimer's disease with delusions (5) Dementia in Alzheimer's disease with depression (6) Dementia, vascular, with delusions (7) Dementia, vascular, with depression KAITLIN DREW MD Sep 08, 2018 23:15
[2018-09-09] MEDS: LEVOTHYROXINE 100 MCG TABLET PO SCH (05:43)
[2018-09-09 05:50] VITALS: BP 94/61
[2018-09-09] MEDS: ALLOPURINOL 100 MG TABLET. PO SCH (08:39)
[2018-09-09] MEDS: DIVALPROEX 125 MG CAP.SPRINK PO SCH ×2 (08:39→17:08)
[2018-09-09] MEDS: AMANTADINE HCL 100 MG CAPSULE PO SCH ×2 (08:40→20:23)
[2018-09-09] MEDS: LISINOPRIL 10 MG TABLET PO SCH (08:40)
[2018-09-09] MEDS: CHOLECALCIFEROL (VITAMIN D3) 1,000 UNIT TABLET PO SCH (08:40)
[2018-09-09] MEDS: FOLIC ACID 1 MG TABLET PO SCH (08:40)
[2018-09-09] MEDS: ASCORBIC ACID 500 MG TABLET PO SCH ×2 (08:40→17:08)
[2018-09-09] MEDS: DULoxetine HCL 60 MG CAPSULE.DR PO SCH (08:41)
[2018-09-09] MEDS: FUROSEMIDE 40 MG TABLET PO SCH (08:41)
[2018-09-09] MEDS: MULTIVITAMIN with MINERAL TABLET. PO SCH (08:41)
[2018-09-09] MEDS: CARVEDILOL 6.25 MG TABLET PO SCH ×2 (08:41→17:09)
[2018-09-09] MEDS: DOXYCYCLINE HYCLATE 100 MG TABLET PO SCH ×2 (08:41→20:23)
[2018-09-09] MEDS: LACTOBACILLUS RHAMNOSUS GG 1 CAPSULE. PO SCH ×2 (08:41→20:23)
[2018-09-09] MEDS: risperiDONE 0.5 MG TABLET. PO SCH ×2 (08:42→20:24)
[2018-09-09] MEDS: NYSTATIN TOPICAL POWDER 15GM BOTTLE. TP SCH ×2 (08:42→20:23)
[2018-09-09] MEDS: metFORMIN 500 MG TABLET PO SCH ×2 (08:42→17:08)
[2018-09-09] MEDS: INSULIN LISPRO 300 UNITS/3 ML INSULN.PEN. SQ SCH ×3 (08:45→17:14)
[2018-09-09] MEDS: DICLOFENAC SODIUM 1% TOPICAL GEL 100GM TUBE. TP SCH ×4 (08:46→20:24)
[2018-09-09 16:20] VITALS: BP 103/68
--- NOTE | 2018-09-09 20:14 | PN ---
DATE: 09/08/2018 This late entry for 09/08/2018 covers elements not covered in my initial note. SUBJECTIVE: I met with the patient in the evening and staffed at a treatment team meeting with the entire team in the morning. She is being screened for level 2 placement. Social service staff is coordinating this. 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 Most communication is written on a white board or nonverbal, but no CV, , GI, eye system symptoms on review. MENTAL STATUS EXAM: Oriented to herself and situation. Speech as above. Abstraction fair, computation impaired, language function intact, attention span short. Mood and affect is improved, less labile. LABORATORY DATA: Reviewed. IMPRESSION: Schizoaffective disorder, bipolar type, mixed with psychotic features versus bipolar disorder, mixed anxiety disorder, unspecified. Rest unchanged from above. PLAN: Continue psychotropics from initial note. Adjust further as clinically indicated. Await placement. MAN Vanesa DREW MD DR: STEFAN/satya JOB#: [id number] / [id number]
[2018-09-09] MEDS: traZODone 100 MG TABLET. PO SCH (20:23)
[2018-09-09] MEDS: INSULIN GLARGINE 300 UNITS/3 ML INSULN.PEN. SQ SCH (20:25)
--- NOTE | 2018-09-09 23:58 | PDOC ---
Exam Note: Johnnie Note: Please also refer to the separate dictated note~for this date of service dictated separately.~Patient seen individually. Discussed the patient with Nursing staff reviewed the chart.~Reviewed interim history and current functioning. Reviewed vital signs,~Labs/ Radiology~and current medications noted below. Continue current treatment with the changes noted in the dictated addendum note Assessment: Vital Signs: Vital Signs Date Time Temp Pulse Resp B/P (MAP) Pulse Ox O2 Delivery O2 Flow Rate FiO2 09/09/18 17:09 76 103/68 09/09/18 16:20 98.0 18 97 Room Air I&O Intake and Output 09/09/18 07:01 Intake Total 1540 ml Balance 1540 ml Intake Oral 1540 ml Labs: Laboratory Tests Test 09/09/18 07:09 09/09/18 12:06 09/09/18 16:57 09/09/18 19:36 Glucose (Fingerstick) 87 mg/dL (70-99) 92 mg/dL (70-99) 126 mg/dL (70-99) H 140 mg/dL (70-99) H Current Medications: Meds: Current Medications Acetaminophen (Tylenol) 650 mg PRN Q6HRS PRN PO PAIN / TEMP Last administered on 09/05/18at 12:08; Start 08/11/18 at 21:00 Multi-Ingredient Ointment (Analgesic [place]) 1 yaima PRN QID PRN TP MUSCLE PAIN; Start 08/11/18 at 21:00 Al Hydroxide/Mg Hydroxide (Mylanta Plus Xs) 15 ml PRN AFTMEALHC PRN PO DYSPEPSIA; Start 08/11/18 at 21:00 Magnesium Hydroxide (Milk Of Magnesia) 2,400 mg PRN QHS PRN PO CONSTIPATION; Start 08/11/18 at 21:00 Alprazolam (Xanax) 0.5 mg PRN Q6HRS PRN PO ANXIETY / AGITATION Last administered on 08/21/18at 20:06; Start 08/11/18 at 22:30 Divalproex Sodium (Depakote Sprinkles) 250 mg BIDWMEALS PO Last administered on 08/13/18at 18:08; Start 08/12/18 at 08:00; Stop 08/13/18 at 20:26; Status DC Duloxetine HCl (Cymbalta) 60 mg BIDWMEALS PO Last administered on 08/13/18at 18 :08; Start 08/12/18 at 08:00; Stop 08/13/18 at 20:26; Status DC Risperidone (RisperDAL) 2 mg BIDWMEALS PO Last administered on 08/14/18at 17:45 ; Start 08/12/18 at 08:00; Stop 08/14/18 at 18:45; Status DC Trazodone HCl (Desyrel) 100 mg HS PO Last administered on 09/09/18 20:23; Start 08/11/18 at 22:30 Ascorbic Acid (Vitamin C) 500 mg BIDWMEALS PO Last administered on 09/09/18 17 :08; Start 08/12/18 at 08:00 Calcium Carbonate/ Glycine (Tums) 500 mg PRN Q6HRS PRN PO INDIGESTION; Start 08/11/18 at 22:15 Vitamin D (Vitamin D3) 2,000 unit DAILY PO Last administered on 09/09/18 08:40 ; Start 08/12/18 at 09:00 Diclofenac Sodium (Voltaren) 1 yaima QID TP Last administered on 09/09/18 20:24 ; Start 08/12/18 at 09:00 Guaifenesin (Mucinex Er) 600 mg BIDWMEALS PO Last administered on 09/09/18 17: 08; Start 08/12/18 at 08:00 Acetaminophen/ Hydrocodone Bitart (Lortab 5/325) 1 tab PRN Q6HRS PRN PO PAIN Last administered on 09/08/18 17:32; Start 08/11/18 at 22:15 Levothyroxine Sodium (Synthroid) 100 mcg DAILY06 PO Last administered on 05:43; Start 08/12/18 at 06:00 Lisinopril (Prinivil) 10 mg DAILY PO Last administered on 09/09/18 08:40; Start 08/12/18 at 09:00 Nitroglycerin (Nitrostat) 0.4 mg PRN Q5MIN PRN SL CHEST PAIN; Start 08/11/18 at 22:15 Nystatin (Nystop) 1 yaima BID TP Last administered on 09/09/18 20:23; Start at 09:00 Allopurinol (Zyloprim) 100 mg DAILY PO Last administered on 09/09/18 08:39; Start 08/12/18 at 09:00 Carvedilol (Coreg) 12.5 mg BIDWMEALS PO Last administered on 09/03/18 08:42; Start 08/12/18 at 08:00; Stop 09/04/18 at 11:25; Status DC Folic Acid (Folic Acid) 1 mg DAILY PO Last administered on 09/09/18 08:40; Start 08/12/18 at 09:00 Furosemide (Lasix) 40 mg DAILY PO Last administered on 09/09/18 08:41; Start 08/12/18 at 09:00 Insulin Human Lispro (HumaLOG) 5 units TIDWMEALS SQ Last administered on 17:14; Start 08/12/18 at 08:00 Insulin Glargine (Lantus) 10 units QHS SQ Last administered on 09/09/18 20:25 ; Start 08/11/18 at 23:00 Loperamide HCl (Imodium) 2 mg PRN Q6HRS PRN PO DIARRHEA; Start 08/11/18 at 22: 45 Non-Formulary Medication (Magnesium Hydroxide (Milk Of Magnesia)) 2,400 mg PRN DAILY PRN PO CONSTIPATION; Start 08/11/18 at 22:15; Status UNV Metformin HCl (Glucophage) 1,000 mg BIDWMEALS PO Last administered on 17:08; Start 08/12/18 at 08:00 Methotrexate (Rheumatrex) 15 mg WEEKLY PO Last administered on 09/08/18 08:16 ; Start 08/18/18 at 09:00 Multivitamins/ Calcium (Thera-M Plus) 1 tab DAILY PO Last administered on 08:41; Start 08/12/18 at 09:00 Glucose (Insta-Glucose) 15 gm PRN Q15MIN PRN PO LOW BLOOD SUGAR; Start at 08:15 Divalproex Sodium (Depakote Sprinkles) 500 mg BIDWMEALS PO ; Start 08/13/18 at 20:27; Stop 08/13/18 at 20:36; Status DC Duloxetine HCl (Cymbalta) 60 mg DAILY PO Last administered on 09/09/18at 08:41; Start 08/14/18 at 09:00 Divalproex Sodium (Depakote Sprinkles) 500 mg BIDWMEALS PO Last administered on 09/09/18at 17:08; Start 08/14/18 at 08:00 Risperidone (RisperDAL) 1.5 mg DAILY PO ; Start 08/14/18 at 19:00; Stop at 19:00; Status DC Risperidone (RisperDAL) 2 mg HS PO Last administered on 08/16/18at 18:51; Start 08/14/18 at 21:00; Stop 08/17/18 at 18:30; Status DC Risperidone (RisperDAL) 1.5 mg HS PO ; Start 08/18/18 at 21:00; Stop 08/18/18 at 21:00; Status DC Risperidone (RisperDAL) 1.5 mg DAILY PO Last administered on 08/17/18at 08:08; Start 08/15/18 at 09:00; Stop 08/17/18 at 18:30; Status DC Amantadine HCl (Symmetrel) 100 mg DAILY PO Last administered on 08/23/18at 08:00 ; Start 08/17/18 at 09:00; Stop 08/23/18 at 21:37; Status DC Risperidone (RisperDAL) 1.5 mg BID PO Last administered on 08/19/18at 08:15; Start 08/17/18 at 21:00; Stop 08/19/18 at 15:58; Status DC Risperidone (RisperDAL) 1 mg BID PO Last administered on 08/22/18at 11:33; Start 08/19/18 at 21:00; Stop 08/22/18 at 17:30; Status DC Risperidone (RisperDAL) 1 mg QHS PO Last administered on 08/24/18at 20:41; Start 08/22/18 at 21:00; Stop 08/25/18 at 18:41; Status DC Risperidone (RisperDAL) 0.5 mg DAILY PO Last administered on 08/25/18at 11:14; Start 08/23/18 at 09:00; Stop 08/25/18 at 09:00; Status DC Amantadine HCl (Symmetrel) 100 mg BID PO Last administered on 09/09/18 20:23; Start 08/24/18 at 09:00 Risperidone (RisperDAL) 1.5 mg BID PO Last administered on 09/09/18 20:24; Start 08/26/18 at 09:00 Risperidone (RisperDAL) 2 mg HS PO Last administered on 08/25/18 20:03; Start 08/25/18 at 21:00; Stop 08/25/18 at 21:01; Status DC Trazodone HCl (Desyrel) 100 mg PRN QHS PRN PO INSOMNIA Last administered on 08/31 02:29; Start 08/30/18 at 18:45 Potassium Chloride (Klor-Con) 20 meq TID PO Last administered on 09/03/18 14: 25; Start 08/31/18 at 21:00; Stop 09/03/18 at 17:14; Status DC Doxycycline Hyclate (Vibra-Tab) 100 mg BID PO Last administered on 09/09/18 20 :23; Start 09/03/18 at 21:00; Stop 09/13/18 at 20:59 Lactobacillus Rhamnosus (Culturelle) 1 cap BID PO Last administered on 20:23; Start 09/03/18 at 21:00 Carvedilol (Coreg) 6.25 mg BIDWMEALS PO Last administered on 09/09/18 17:09; Start 09/04/18 at 17:00 Active Scripts Active Reported Xanax (Alprazolam) 0.5 Mg Tablet 0.5 Mg PO PRN Q6HRS PRN Hydrocodone-Apap 5-325 (Hydrocodone Bit/Acetaminophen) 1 Each Tablet 1 Tab PO PRN Q6HRS PRN Voltaren (Diclofenac Sodium) 100 Gm Gel..gram. 4 Gm TP QID Nystatin 15 Gm Powder 1 Yaima TP BID Tums (Calcium Carbonate) 200 Mg Tab.chew 2 Tab PO PRN Q6HRS PRN Nitrostat (Nitroglycerin) 0.4 Mg Tab.subl 0.4 Mg SL PRN Q5MIN PRN Milk Of Magnesia (Magnesium Hydroxide) 2,400 Mg/10 Ml Oral.susp 2,400 Mg PO PRN DAILY PRN Loperamide (Loperamide Hcl) 2 Mg Tablet 2 Mg PO PRN Q6HRS PRN Vitamin C (Ascorbic Acid) 500 Mg Tablet 500 Mg PO BIDWMEALS Risperdal (Risperidone) 2 Mg Tablet 2 Mg PO BIDWMEALS Mucinex (Guaifenesin) 600 Mg Tablet.er 600 Mg PO BIDWMEALS Metformin Hcl 1,000 Mg Tablet 1,000 Mg PO BIDWMEALS Cymbalta (Duloxetine Hcl) 60 Mg Capsule.dr 60 Mg PO BIDWMEALS Depakote Sprinkle (Divalproex Sodium) 125 Mg Cap.sprink 250 Mg PO BIDWMEALS Coreg (Carvedilol) 12.5 Mg Tablet 12.5 Mg PO BIDWMEALS Vitamin D3 (Cholecalciferol (Vitamin D3)) 1,000 Unit Tablet 2,000 Unit PO DAILY Trazodone Hcl 100 Mg Tablet 100 Mg PO HS Multivitamins (Multivitamin) 1 Each Tablet 1 Tab PO DAILY Methotrexate (Methotrexate Sodium) 2.5 Mg Tablet 15 Mg PO WEEKLY Lisinopril 10 Mg Tablet 10 Mg PO DAILY Levothyroxine Sodium 100 Mcg Tablet 100 Mcg PO DAILYAC Lasix (Furosemide) 40 Mg Tablet 40 Mg PO DAILY Folic Acid 1 Mg Tablet 1 Mg PO DAILY Allopurinol 100 Mg Tablet 100 Mg PO DAILY Novolog (Insulin Aspart) 100 Unit/1 Ml Vial 5 Unit SQ TIDWMEALS Levemir (Insulin Detemir) 100 Unit/1 Ml Vial 10 Unit SQ HS I have reviewed the current psychotropics carefully including drug interactions. Risk benefit ratio favors no change other than as noted in my dictated progress note. Diagnosis: Problems: (1) Anxiety disorder (2) Major depressive disorder, recurrent episode (3) Impulse control disorder (4) Dementia in Alzheimer's disease with delusions (5) Dementia in Alzheimer's disease with depression (6) Dementia, vascular, with delusions (7) Dementia, vascular, with depression KAITLIN DREW MD Sep 09, 2018 23:58
[2018-09-10] MEDS: LEVOTHYROXINE 100 MCG TABLET PO SCH (05:29)
[2018-09-10 05:32] VITALS: BP 91/58
[2018-09-10] MEDS: metFORMIN 500 MG TABLET PO SCH ×2 (08:53→16:52)
[2018-09-10] MEDS: DIVALPROEX 125 MG CAP.SPRINK PO SCH ×2 (08:53→16:52)
[2018-09-10] MEDS: ASCORBIC ACID 500 MG TABLET PO SCH ×2 (08:55→16:52)
[2018-09-10] MEDS: INSULIN LISPRO 300 UNITS/3 ML INSULN.PEN. SQ SCH ×3 (08:55→17:17)
[2018-09-10] MEDS: FOLIC ACID 1 MG TABLET PO SCH (08:55)
[2018-09-10] MEDS: LACTOBACILLUS RHAMNOSUS GG 1 CAPSULE. PO SCH ×2 (08:55→21:11)
[2018-09-10] MEDS: FUROSEMIDE 40 MG TABLET PO SCH (08:55)
[2018-09-10] MEDS: DULoxetine HCL 60 MG CAPSULE.DR PO SCH (08:55)
[2018-09-10] MEDS: risperiDONE 0.5 MG TABLET. PO SCH ×2 (08:56→21:11)
[2018-09-10] MEDS: DOXYCYCLINE HYCLATE 100 MG TABLET PO SCH ×2 (08:56→21:11)
[2018-09-10] MEDS: NYSTATIN TOPICAL POWDER 15GM BOTTLE. TP SCH ×2 (08:56→21:12)
[2018-09-10] MEDS: ALLOPURINOL 100 MG TABLET. PO SCH (08:56)
[2018-09-10] MEDS: CHOLECALCIFEROL (VITAMIN D3) 1,000 UNIT TABLET PO SCH (08:56)
[2018-09-10] MEDS: MULTIVITAMIN with MINERAL TABLET. PO SCH (08:56)
[2018-09-10] MEDS: AMANTADINE HCL 100 MG CAPSULE PO SCH ×2 (08:56→21:12)
[2018-09-10] MEDS: DICLOFENAC SODIUM 1% TOPICAL GEL 100GM TUBE. TP SCH ×4 (08:57→21:12)
[2018-09-10 09:17] LABS: BASO % 1 % (0-3); EOS # 0.3 x10^3/uL (0.0-0.7); EOS % 11 % (0-3); HEMATOCRIT 32.9 % (36.0-47.0); LYMPH # 1.3 x10^3/uL (1.0-4.8); LYMPH % 47 % (24-48); MEAN CORPUSCULAR HEMOGLOBIN 33 pg (25-35); MEAN CORPUSCULAR HGB CONC 34 g/dL (31-37); MEAN CORPUSCULAR VOLUME 97 fL (79-100); MONO # 0.3 x10^3/uL (0.0-1.1); MONO % 12 % (0-9); NEUT # 0.8 x10^3uL (1.8-7.7); NEUT % 30 % (31-73); PLATELET COUNT 144 x10^3/uL (140-400); RED BLOOD COUNT 3.39 x10^6/uL (3.50-5.40); RED CELL DISTRIBUTION WIDTH 18.2 % (11.5-14.5); WHITE BLOOD COUNT 2.9 x10^3/uL (4.0-11.0)
[2018-09-10 09:29] LABS: ALBUMIN 2.1 g/dL (3.4-5.0); ALBUMIN/GLOBULIN RATIO 0.6 (1.0-1.7); CALCIUM 8.6 mg/dL (8.5-10.1); GFR 56.7; POTASSIUM 3.8 mmol/L (3.5-5.1); TOTAL BILIRUBIN 0.3 mg/dL (0.2-1.0); TOTAL PROTEIN 5.9 g/dL (6.4-8.2)
[2018-09-10] MEDS: LISINOPRIL 10 MG TABLET PO SCH (09:29)
[2018-09-10] MEDS: CARVEDILOL 6.25 MG TABLET PO SCH ×2 (09:29→16:52)
[2018-09-10] MEDS: ACETAMINOPHEN 325 MG TABLET PO PRN (12:19)
[2018-09-10 15:38] VITALS: BP 102/65
--- NOTE | 2018-09-10 18:29 | RAD ---
Exam performed: One view chest. Indication: COUGH Date of Service: 09/10/2018 4:03 PM Comparison: None available. Single AP upright portable view chest findings: Cardiomediastinal silhouette is mildly enlarged.. Vascularity appears somewhat prominent. No acute infiltrates, effusion or pneumothorax is detected. The bony structures are normal. Impression: Mild cardiomegaly with Central vascular congestion. Electronically signed by: Anne Tomas MD (09/10/2018 6:25 PM) [facility]
[2018-09-10] MEDS: traZODone 100 MG TABLET. PO SCH (21:11)
[2018-09-10] MEDS: INSULIN GLARGINE 300 UNITS/3 ML INSULN.PEN. SQ SCH (21:14)
[2018-09-11] MEDS: LEVOTHYROXINE 100 MCG TABLET PO SCH (05:19)
[2018-09-11 05:59] VITALS: BP 107/59
[2018-09-11] MEDS: INSULIN LISPRO 300 UNITS/3 ML INSULN.PEN. SQ SCH ×3 (07:44→17:20)
[2018-09-11] MEDS: CARVEDILOL 6.25 MG TABLET PO SCH ×2 (07:47→17:23)
[2018-09-11] MEDS: metFORMIN 500 MG TABLET PO SCH ×2 (07:47→17:24)
[2018-09-11] MEDS: DIVALPROEX 125 MG CAP.SPRINK PO SCH ×2 (07:47→17:24)
[2018-09-11] MEDS: LACTOBACILLUS RHAMNOSUS GG 1 CAPSULE. PO SCH ×2 (07:48→19:35)
[2018-09-11] MEDS: FOLIC ACID 1 MG TABLET PO SCH (07:48)
[2018-09-11] MEDS: FUROSEMIDE 40 MG TABLET PO SCH (07:48)
[2018-09-11] MEDS: LISINOPRIL 10 MG TABLET PO SCH (07:48)
[2018-09-11] MEDS: ASCORBIC ACID 500 MG TABLET PO SCH ×2 (07:48→17:24)
[2018-09-11] MEDS: DULoxetine HCL 60 MG CAPSULE.DR PO SCH (07:48)
[2018-09-11] MEDS: risperiDONE 0.5 MG TABLET. PO SCH ×2 (07:49→19:35)
[2018-09-11] MEDS: AMANTADINE HCL 100 MG CAPSULE PO SCH ×2 (07:49→19:38)
[2018-09-11] MEDS: MULTIVITAMIN with MINERAL TABLET. PO SCH (07:49)
[2018-09-11] MEDS: DOXYCYCLINE HYCLATE 100 MG TABLET PO SCH ×2 (07:49→19:35)
[2018-09-11] MEDS: CHOLECALCIFEROL (VITAMIN D3) 1,000 UNIT TABLET PO SCH (07:50)
[2018-09-11] MEDS: ALLOPURINOL 100 MG TABLET. PO SCH (07:50)
[2018-09-11] MEDS: NYSTATIN TOPICAL POWDER 15GM BOTTLE. TP SCH ×2 (07:51→19:38)
[2018-09-11] MEDS: DICLOFENAC SODIUM 1% TOPICAL GEL 100GM TUBE. TP SCH ×4 (07:51→19:37)
[2018-09-11 15:42] VITALS: BP 140/93
[2018-09-11] MEDS: traZODone 100 MG TABLET. PO SCH (19:35)
[2018-09-11] MEDS: INSULIN GLARGINE 300 UNITS/3 ML INSULN.PEN. SQ SCH (20:21)
--- NOTE | 2018-09-11 22:37 | PDOC ---
Exam Note: Johnnie Note: Please also refer to the separate dictated note~for this date of service dictated separately. Discussed the patient with Nursing staff reviewed the chart.~Reviewed interim history and current functioning. Reviewed vital signs,~ Labs/ Radiology~and current medications noted below. Continue current treatment with the changes noted in the dictated addendum note Assessment: Vital Signs: Vital Signs Date Time Temp Pulse Resp B/P (MAP) Pulse Ox O2 Delivery O2 Flow Rate FiO2 09/11/18 17:23 84 140/93 09/11/18 15:42 97.2 19 97 09/09/18 16:20 Room Air I&O Intake and Output 09/11/18 07:01 Intake Total 840 ml Balance 840 ml Intake Oral 840 ml # Voids 1 Labs: Laboratory Tests Test 09/11/18 07:08 09/11/18 11:35 09/11/18 16:26 09/11/18 19:49 Glucose (Fingerstick) 119 mg/dL (70-99) H 119 mg/dL (70-99) H 108 mg/dL (70-99) H 70 mg/dL (70-99) Current Medications: Meds: Current Medications Acetaminophen (Tylenol) 650 mg PRN Q6HRS PRN PO PAIN / TEMP Last administered on 09/10/18at 12:19; Start 08/11/18 at 21:00 Multi-Ingredient Ointment (Analgesic [place]) 1 yaima PRN QID PRN TP MUSCLE PAIN; Start 08/11/18 at 21:00 Al Hydroxide/Mg Hydroxide (Mylanta Plus Xs) 15 ml PRN AFTMEALHC PRN PO DYSPEPSIA; Start 08/11/18 at 21:00 Magnesium Hydroxide (Milk Of Magnesia) 2,400 mg PRN QHS PRN PO CONSTIPATION; Start 08/11/18 at 21:00 Alprazolam (Xanax) 0.5 mg PRN Q6HRS PRN PO ANXIETY / AGITATION Last administered on 08/21/18at 20:06; Start 08/11/18 at 22:30 Divalproex Sodium (Depakote Sprinkles) 250 mg BIDWMEALS PO Last administered on 08/13/18at 18:08; Start 08/12/18 at 08:00; Stop 08/13/18 at 20:26; Status DC Duloxetine HCl (Cymbalta) 60 mg BIDWMEALS PO Last administered on 08/13/18at 18 :08; Start 08/12/18 at 08:00; Stop 08/13/18 at 20:26; Status DC Risperidone (RisperDAL) 2 mg BIDWMEALS PO Last administered on 08/14/18at 17:45 ; Start 08/12/18 at 08:00; Stop 08/14/18 at 18:45; Status DC Trazodone HCl (Desyrel) 100 mg HS PO Last administered on 09/11/18 19:35; Start 08/11/18 at 22:30 Ascorbic Acid (Vitamin C) 500 mg BIDWMEALS PO Last administered on 09/11/18 17 :24; Start 08/12/18 at 08:00 Calcium Carbonate/ Glycine (Tums) 500 mg PRN Q6HRS PRN PO INDIGESTION; Start 08/11/18 at 22:15 Vitamin D (Vitamin D3) 2,000 unit DAILY PO Last administered on 09/11/18 07:50 ; Start 08/12/18 at 09:00 Diclofenac Sodium (Voltaren) 1 yaima QID TP Last administered on 09/11/18 19:37 ; Start 08/12/18 at 09:00 Guaifenesin (Mucinex Er) 600 mg BIDWMEALS PO Last administered on 09/11/18 17: 24; Start 08/12/18 at 08:00 Acetaminophen/ Hydrocodone Bitart (Lortab 5/325) 1 tab PRN Q6HRS PRN PO PAIN Last administered on 09/08/18 17:32; Start 08/11/18 at 22:15 Levothyroxine Sodium (Synthroid) 100 mcg DAILY06 PO Last administered on 05:19; Start 08/12/18 at 06:00 Lisinopril (Prinivil) 10 mg DAILY PO Last administered on 09/09/18 08:40; Start 08/12/18 at 09:00 Nitroglycerin (Nitrostat) 0.4 mg PRN Q5MIN PRN SL CHEST PAIN; Start 08/11/18 at 22:15 Nystatin (Nystop) 1 yaima BID TP Last administered on 09/11/18 19:38; Start at 09:00 Allopurinol (Zyloprim) 100 mg DAILY PO Last administered on 09/11/18 07:50; Start 08/12/18 at 09:00 Carvedilol (Coreg) 12.5 mg BIDWMEALS PO Last administered on 09/03/18 08:42; Start 08/12/18 at 08:00; Stop 09/04/18 at 11:25; Status DC Folic Acid (Folic Acid) 1 mg DAILY PO Last administered on 09/11/18 07:48; Start 08/12/18 at 09:00 Furosemide (Lasix) 40 mg DAILY PO Last administered on 09/11/18 07:48; Start 08/12/18 at 09:00 Insulin Human Lispro (HumaLOG) 5 units TIDWMEALS SQ Last administered on 17:20; Start 08/12/18 at 08:00 Insulin Glargine (Lantus) 10 units QHS SQ Last administered on 09/10/18 21:14 ; Start 08/11/18 at 23:00 Loperamide HCl (Imodium) 2 mg PRN Q6HRS PRN PO DIARRHEA; Start 08/11/18 at 22: 45 Non-Formulary Medication (Magnesium Hydroxide (Milk Of Magnesia)) 2,400 mg PRN DAILY PRN PO CONSTIPATION; Start 08/11/18 at 22:15; Status UNV Metformin HCl (Glucophage) 1,000 mg BIDWMEALS PO Last administered on 17:24; Start 08/12/18 at 08:00 Methotrexate (Rheumatrex) 15 mg WEEKLY PO Last administered on 09/08/18 08:16 ; Start 08/18/18 at 09:00 Multivitamins/ Calcium (Thera-M Plus) 1 tab DAILY PO Last administered on 07:49; Start 08/12/18 at 09:00 Glucose (Insta-Glucose) 15 gm PRN Q15MIN PRN PO LOW BLOOD SUGAR; Start at 08:15 Divalproex Sodium (Depakote Sprinkles) 500 mg BIDWMEALS PO ; Start 08/13/18 at 20:27; Stop 08/13/18 at 20:36; Status DC Duloxetine HCl (Cymbalta) 60 mg DAILY PO Last administered on 09/11/18at 07:48; Start 08/14/18 at 09:00 Divalproex Sodium (Depakote Sprinkles) 500 mg BIDWMEALS PO Last administered on 09/11/18at 17:24; Start 08/14/18 at 08:00 Risperidone (RisperDAL) 1.5 mg DAILY PO ; Start 08/14/18 at 19:00; Stop at 19:00; Status DC Risperidone (RisperDAL) 2 mg HS PO Last administered on 08/16/18at 18:51; Start 08/14/18 at 21:00; Stop 08/17/18 at 18:30; Status DC Risperidone (RisperDAL) 1.5 mg HS PO ; Start 08/18/18 at 21:00; Stop 08/18/18 at 21:00; Status DC Risperidone (RisperDAL) 1.5 mg DAILY PO Last administered on 08/17/18at 08:08; Start 08/15/18 at 09:00; Stop 08/17/18 at 18:30; Status DC Amantadine HCl (Symmetrel) 100 mg DAILY PO Last administered on 08/23/18at 08:00 ; Start 08/17/18 at 09:00; Stop 08/23/18 at 21:37; Status DC Risperidone (RisperDAL) 1.5 mg BID PO Last administered on 08/19/18at 08:15; Start 08/17/18 at 21:00; Stop 08/19/18 at 15:58; Status DC Risperidone (RisperDAL) 1 mg BID PO Last administered on 08/22/18at 11:33; Start 08/19/18 at 21:00; Stop 08/22/18 at 17:30; Status DC Risperidone (RisperDAL) 1 mg QHS PO Last administered on 08/24/18at 20:41; Start 08/22/18 at 21:00; Stop 08/25/18 at 18:41; Status DC Risperidone (RisperDAL) 0.5 mg DAILY PO Last administered on 08/25/18at 11:14; Start 08/23/18 at 09:00; Stop 08/25/18 at 09:00; Status DC Amantadine HCl (Symmetrel) 100 mg BID PO Last administered on 09/11/18 19:38; Start 08/24/18 at 09:00 Risperidone (RisperDAL) 1.5 mg BID PO Last administered on 09/11/18 19:35; Start 08/26/18 at 09:00 Risperidone (RisperDAL) 2 mg HS PO Last administered on 08/25/18 20:03; Start 08/25/18 at 21:00; Stop 08/25/18 at 21:01; Status DC Trazodone HCl (Desyrel) 100 mg PRN QHS PRN PO INSOMNIA Last administered on 08/31 02:29; Start 08/30/18 at 18:45 Potassium Chloride (Klor-Con) 20 meq TID PO Last administered on 09/03/18 14: 25; Start 08/31/18 at 21:00; Stop 09/03/18 at 17:14; Status DC Doxycycline Hyclate (Vibra-Tab) 100 mg BID PO Last administered on 09/11/18 19 :35; Start 09/03/18 at 21:00; Stop 09/13/18 at 20:59 Lactobacillus Rhamnosus (Culturelle) 1 cap BID PO Last administered on 19:35; Start 09/03/18 at 21:00 Carvedilol (Coreg) 6.25 mg BIDWMEALS PO Last administered on 09/11/18 17:23; Start 09/04/18 at 17:00 Active Scripts Active Reported Xanax (Alprazolam) 0.5 Mg Tablet 0.5 Mg PO PRN Q6HRS PRN Hydrocodone-Apap 5-325 (Hydrocodone Bit/Acetaminophen) 1 Each Tablet 1 Tab PO PRN Q6HRS PRN Voltaren (Diclofenac Sodium) 100 Gm Gel..gram. 4 Gm TP QID Nystatin 15 Gm Powder 1 Yaima TP BID Tums (Calcium Carbonate) 200 Mg Tab.chew 2 Tab PO PRN Q6HRS PRN Nitrostat (Nitroglycerin) 0.4 Mg Tab.subl 0.4 Mg SL PRN Q5MIN PRN Milk Of Magnesia (Magnesium Hydroxide) 2,400 Mg/10 Ml Oral.susp 2,400 Mg PO PRN DAILY PRN Loperamide (Loperamide Hcl) 2 Mg Tablet 2 Mg PO PRN Q6HRS PRN Vitamin C (Ascorbic Acid) 500 Mg Tablet 500 Mg PO BIDWMEALS Risperdal (Risperidone) 2 Mg Tablet 2 Mg PO BIDWMEALS Mucinex (Guaifenesin) 600 Mg Tablet.er 600 Mg PO BIDWMEALS Metformin Hcl 1,000 Mg Tablet 1,000 Mg PO BIDWMEALS Cymbalta (Duloxetine Hcl) 60 Mg Capsule.dr 60 Mg PO BIDWMEALS Depakote Sprinkle (Divalproex Sodium) 125 Mg Cap.sprink 250 Mg PO BIDWMEALS Coreg (Carvedilol) 12.5 Mg Tablet 12.5 Mg PO BIDWMEALS Vitamin D3 (Cholecalciferol (Vitamin D3)) 1,000 Unit Tablet 2,000 Unit PO DAILY Trazodone Hcl 100 Mg Tablet 100 Mg PO HS Multivitamins (Multivitamin) 1 Each Tablet 1 Tab PO DAILY Methotrexate (Methotrexate Sodium) 2.5 Mg Tablet 15 Mg PO WEEKLY Lisinopril 10 Mg Tablet 10 Mg PO DAILY Levothyroxine Sodium 100 Mcg Tablet 100 Mcg PO DAILYAC Lasix (Furosemide) 40 Mg Tablet 40 Mg PO DAILY Folic Acid 1 Mg Tablet 1 Mg PO DAILY Allopurinol 100 Mg Tablet 100 Mg PO DAILY Novolog (Insulin Aspart) 100 Unit/1 Ml Vial 5 Unit SQ TIDWMEALS Levemir (Insulin Detemir) 100 Unit/1 Ml Vial 10 Unit SQ HS I have reviewed the current psychotropics carefully including drug interactions. Risk benefit ratio favors no change other than as noted in my dictated progress note. Diagnosis: Problems: (1) Anxiety disorder (2) Major depressive disorder, recurrent episode (3) Impulse control disorder (4) Dementia in Alzheimer's disease with delusions (5) Dementia in Alzheimer's disease with depression (6) Dementia, vascular, with delusions (7) Dementia, vascular, with depression KAITLIN DREW MD Sep 11, 2018 22:37
[2018-09-12] MEDS: ACETAMINOPHEN 325 MG TABLET PO PRN (02:17)
[2018-09-12] MEDS: LEVOTHYROXINE 100 MCG TABLET PO SCH (05:48)
[2018-09-12 06:00] VITALS: BP 139/75
--- NOTE | 2018-09-12 07:00 | PDOC ---
Exam Note: Johnnie Note: PSYCHIATRIC PROGRESS NOTE This late entry 09/09/2018 covers elements, not covered in my initial note. SUBJECTIVE: I met with the patient individually in the evening of 09/09/2018. Reviewed information from nursing staff. Reviewed the chart. She slept 6-3/4 hours. She has been compliant with medications. REVIEW OF SYSTEMS: She is extremely hard of hearing. She is much more pleasant but not verbally interactive and resistive to non-verbal communication and communication was writing on the white board. No CV, , pulmonary, eye, ENT system symptoms on review. Reliability poor. MENTAL STATUS EXAMINATION: Oriented to herself. Insight and judgment, recent and remote memory, attention and concentration, fund of knowledge poor consistent with her diagnosis. LABORATORY DATA: Reviewed. IMPRESSION: Bipolar I disorder mixed with psychotic features. Anxiety disorder unspecified. Major neurocognitive disorder possibly Alzheimer, vascular with delusion. Rest unchanged. PLAN: I have carefully reviewed current psychotropics. There are no changes in the current treatment. Assessment: Vital Signs: VS - Last 72 Hours, by Label Date Time Temp Pulse Resp B/P (MAP) Pulse Ox O2 Delivery O2 Flow Rate FiO2 09/12/18 06:00 97.3 82 20 139/75 (96) 97 09/11/18 17:23 84 140/93 09/11/18 15:42 97.2 84 19 140/93 (109) 97 09/11/18 07:47 77 107/59 09/11/18 05:59 97.8 77 20 107/59 (75) 99 09/10/18 16:52 88 102/65 09/10/18 15:38 97.8 88 20 102/65 (77) 94 09/10/18 05:32 97.1 74 22 91/58 (69) 96 09/09/18 17:09 76 103/68 09/09/18 16:20 98.0 76 18 103/68 (80) 97 Room Air 09/09/18 08:41 71 94/61 09/09/18 08:40 71 94/61 Vital Signs Date Time Temp Pulse Resp B/P (MAP) Pulse Ox O2 Delivery O2 Flow Rate FiO2 09/12/18 06:00 97.3 82 20 139/75 (96) 97 09/09/18 16:20 Room Air I&O Intake and Output 09/12/18 07:01 Intake Total 1200 ml Balance 1200 ml Intake Oral 1200 ml # Voids 1 Labs: Laboratory Tests Test 09/11/18 07:08 09/11/18 11:35 09/11/18 16:26 09/11/18 19:49 Glucose (Fingerstick) 119 mg/dL (70-99) H 119 mg/dL (70-99) H 108 mg/dL (70-99) H 70 mg/dL (70-99) Current Medications: Meds: Current Medications Acetaminophen (Tylenol) 650 mg PRN Q6HRS PRN PO PAIN / TEMP Last administered on 09/12/18at 02:17; Start 08/11/18 at 21:00 Multi-Ingredient Ointment (Analgesic [place]) 1 yaima PRN QID PRN TP MUSCLE PAIN; Start 08/11/18 at 21:00 Al Hydroxide/Mg Hydroxide (Mylanta Plus Xs) 15 ml PRN AFTMEALHC PRN PO DYSPEPSIA; Start 08/11/18 at 21:00 Magnesium Hydroxide (Milk Of Magnesia) 2,400 mg PRN QHS PRN PO CONSTIPATION; Start 08/11/18 at 21:00 Alprazolam (Xanax) 0.5 mg PRN Q6HRS PRN PO ANXIETY / AGITATION Last administered on 08/21/18at 20:06; Start 08/11/18 at 22:30 Divalproex Sodium (Depakote Sprinkles) 250 mg BIDWMEALS PO Last administered on 08/13/18at 18:08; Start 08/12/18 at 08:00; Stop 08/13/18 at 20:26; Status DC Duloxetine HCl (Cymbalta) 60 mg BIDWMEALS PO Last administered on 08/13/18at 18 :08; Start 08/12/18 at 08:00; Stop 08/13/18 at 20:26; Status DC Risperidone (RisperDAL) 2 mg BIDWMEALS PO Last administered on 08/14/18at 17:45 ; Start 08/12/18 at 08:00; Stop 08/14/18 at 18:45; Status DC Trazodone HCl (Desyrel) 100 mg HS PO Last administered on 09/11/18at 19:35; Start 08/11/18 at 22:30 Ascorbic Acid (Vitamin C) 500 mg BIDWMEALS PO Last administered on 09/11/18 17 :24; Start 08/12/18 at 08:00 Calcium Carbonate/ Glycine (Tums) 500 mg PRN Q6HRS PRN PO INDIGESTION; Start 08/11/18 at 22:15 Vitamin D (Vitamin D3) 2,000 unit DAILY PO Last administered on 09/11/18 07:50 ; Start 08/12/18 at 09:00 Diclofenac Sodium (Voltaren) 1 yaima QID TP Last administered on 09/11/18 19:37 ; Start 08/12/18 at 09:00 Guaifenesin (Mucinex Er) 600 mg BIDWMEALS PO Last administered on 09/11/18 17: 24; Start 08/12/18 at 08:00 Acetaminophen/ Hydrocodone Bitart (Lortab 5/325) 1 tab PRN Q6HRS PRN PO PAIN Last administered on 09/08/18 17:32; Start 08/11/18 at 22:15 Levothyroxine Sodium (Synthroid) 100 mcg DAILY06 PO Last administered on 05:48; Start 08/12/18 at 06:00 Lisinopril (Prinivil) 10 mg DAILY PO Last administered on 09/09/18 08:40; Start 08/12/18 at 09:00 Nitroglycerin (Nitrostat) 0.4 mg PRN Q5MIN PRN SL CHEST PAIN; Start 08/11/18 at 22:15 Nystatin (Nystop) 1 yaima BID TP Last administered on 09/11/18 19:38; Start at 09:00 Allopurinol (Zyloprim) 100 mg DAILY PO Last administered on 09/11/18 07:50; Start 08/12/18 at 09:00 Carvedilol (Coreg) 12.5 mg BIDWMEALS PO Last administered on 09/03/18 08:42; Start 08/12/18 at 08:00; Stop 09/04/18 at 11:25; Status DC Folic Acid (Folic Acid) 1 mg DAILY PO Last administered on 09/11/18 07:48; Start 08/12/18 at 09:00 Furosemide (Lasix) 40 mg DAILY PO Last administered on 09/11/18 07:48; Start 08/12/18 at 09:00 Insulin Human Lispro (HumaLOG) 5 units TIDWMEALS SQ Last administered on 17:20; Start 08/12/18 at 08:00 Insulin Glargine (Lantus) 10 units QHS SQ Last administered on 09/10/18 21:14 ; Start 08/11/18 at 23:00 Loperamide HCl (Imodium) 2 mg PRN Q6HRS PRN PO DIARRHEA; Start 08/11/18 at 22: 45 Non-Formulary Medication (Magnesium Hydroxide (Milk Of Magnesia)) 2,400 mg PRN DAILY PRN PO CONSTIPATION; Start 08/11/18 at 22:15; Status UNV Metformin HCl (Glucophage) 1,000 mg BIDWMEALS PO Last administered on 17:24; Start 08/12/18 at 08:00 Methotrexate (Rheumatrex) 15 mg WEEKLY PO Last administered on 09/08/18 08:16 ; Start 08/18/18 at 09:00 Multivitamins/ Calcium (Thera-M Plus) 1 tab DAILY PO Last administered on 07:49; Start 08/12/18 at 09:00 Glucose (Insta-Glucose) 15 gm PRN Q15MIN PRN PO LOW BLOOD SUGAR; Start at 08:15 Divalproex Sodium (Depakote Sprinkles) 500 mg BIDWMEALS PO ; Start 08/13/18 at 20:27; Stop 08/13/18 at 20:36; Status DC Duloxetine HCl (Cymbalta) 60 mg DAILY PO Last administered on 09/11/18 07:48; Start 08/14/18 at 09:00 Divalproex Sodium (Depakote Sprinkles) 500 mg BIDWMEALS PO Last administered on 09/11/18 17:24; Start 08/14/18 at 08:00 Risperidone (RisperDAL) 1.5 mg DAILY PO ; Start 08/14/18 at 19:00; Stop at 19:00; Status DC Risperidone (RisperDAL) 2 mg HS PO Last administered on 08/16/18at 18:51; Start 08/14/18 at 21:00; Stop 08/17/18 at 18:30; Status DC Risperidone (RisperDAL) 1.5 mg HS PO ; Start 08/18/18 at 21:00; Stop 08/18/18 at 21:00; Status DC Risperidone (RisperDAL) 1.5 mg DAILY PO Last administered on 08/17/18at 08:08; Start 08/15/18 at 09:00; Stop 08/17/18 at 18:30; Status DC Amantadine HCl (Symmetrel) 100 mg DAILY PO Last administered on 08/23/18at 08:00 ; Start 08/17/18 at 09:00; Stop 08/23/18 at 21:37; Status DC Risperidone (RisperDAL) 1.5 mg BID PO Last administered on 08/19/18at 08:15; Start 08/17/18 at 21:00; Stop 08/19/18 at 15:58; Status DC Risperidone (RisperDAL) 1 mg BID PO Last administered on 08/22/18at 11:33; Start 08/19/18 at 21:00; Stop 08/22/18 at 17:30; Status DC Risperidone (RisperDAL) 1 mg QHS PO Last administered on 08/24/18 20:41; Start 08/22/18 at 21:00; Stop 08/25/18 at 18:41; Status DC Risperidone (RisperDAL) 0.5 mg DAILY PO Last administered on 08/25/18at 11:14; Start 08/23/18 at 09:00; Stop 08/25/18 at 09:00; Status DC Amantadine HCl (Symmetrel) 100 mg BID PO Last administered on 09/11/18at 19:38; Start 08/24/18 at 09:00 Risperidone (RisperDAL) 1.5 mg BID PO Last administered on 09/11/18 19:35; Start 08/26/18 at 09:00 Risperidone (RisperDAL) 2 mg HS PO Last administered on 08/25/18at 20:03; Start 08/25/18 at 21:00; Stop 08/25/18 at 21:01; Status DC Trazodone HCl (Desyrel) 100 mg PRN QHS PRN PO INSOMNIA Last administered on 08/31at 02:29; Start 08/30/18 at 18:45 Potassium Chloride (Klor-Con) 20 meq TID PO Last administered on 09/03/18at 14: 25; Start 08/31/18 at 21:00; Stop 09/03/18 at 17:14; Status DC Doxycycline Hyclate (Vibra-Tab) 100 mg BID PO Last administered on 09/11/18at 19 :35; Start 09/03/18 at 21:00; Stop 09/13/18 at 20:59 Lactobacillus Rhamnosus (Culturelle) 1 cap BID PO Last administered on at 19:35; Start 09/03/18 at 21:00 Carvedilol (Coreg) 6.25 mg BIDWMEALS PO Last administered on 09/11/18at 17:23; Start 09/04/18 at 17:00 Active Scripts Active Reported Xanax (Alprazolam) 0.5 Mg Tablet 0.5 Mg PO PRN Q6HRS PRN Hydrocodone-Apap 5-325 (Hydrocodone Bit/Acetaminophen) 1 Each Tablet 1 Tab PO PRN Q6HRS PRN Voltaren (Diclofenac Sodium) 100 Gm Gel..gram. 4 Gm TP QID Nystatin 15 Gm Powder 1 Yaima TP BID Tums (Calcium Carbonate) 200 Mg Tab.chew 2 Tab PO PRN Q6HRS PRN Nitrostat (Nitroglycerin) 0.4 Mg Tab.subl 0.4 Mg SL PRN Q5MIN PRN Milk Of Magnesia (Magnesium Hydroxide) 2,400 Mg/10 Ml Oral.susp 2,400 Mg PO PRN DAILY PRN Loperamide (Loperamide Hcl) 2 Mg Tablet 2 Mg PO PRN Q6HRS PRN Vitamin C (Ascorbic Acid) 500 Mg Tablet 500 Mg PO BIDWMEALS Risperdal (Risperidone) 2 Mg Tablet 2 Mg PO BIDWMEALS Mucinex (Guaifenesin) 600 Mg Tablet.er 600 Mg PO BIDWMEALS Metformin Hcl 1,000 Mg Tablet 1,000 Mg PO BIDWMEALS Cymbalta (Duloxetine Hcl) 60 Mg Capsule.dr 60 Mg PO BIDWMEALS Depakote Sprinkle (Divalproex Sodium) 125 Mg Cap.sprink 250 Mg PO BIDWMEALS Coreg (Carvedilol) 12.5 Mg Tablet 12.5 Mg PO BIDWMEALS Vitamin D3 (Cholecalciferol (Vitamin D3)) 1,000 Unit Tablet 2,000 Unit PO DAILY Trazodone Hcl 100 Mg Tablet 100 Mg PO HS Multivitamins (Multivitamin) 1 Each Tablet 1 Tab PO DAILY Methotrexate (Methotrexate Sodium) 2.5 Mg Tablet 15 Mg PO WEEKLY Lisinopril 10 Mg Tablet 10 Mg PO DAILY Levothyroxine Sodium 100 Mcg Tablet 100 Mcg PO DAILYAC Lasix (Furosemide) 40 Mg Tablet 40 Mg PO DAILY Folic Acid 1 Mg Tablet 1 Mg PO DAILY Allopurinol 100 Mg Tablet 100 Mg PO DAILY Novolog (Insulin Aspart) 100 Unit/1 Ml Vial 5 Unit SQ TIDWMEALS Levemir (Insulin Detemir) 100 Unit/1 Ml Vial 10 Unit SQ HS I have reviewed the current psychotropics carefully including drug interactions. Risk benefit ratio favors no change other than as noted in my dictated progress note. Diagnosis: Problems: (1) Anxiety disorder (2) Major depressive disorder, recurrent episode (3) Impulse control disorder (4) Dementia in Alzheimer's disease with delusions (5) Dementia in Alzheimer's disease with depression (6) Dementia, vascular, with delusions (7) Dementia, vascular, with depression KAITLIN DREW MD Sep 12, 2018 07:00
--- NOTE | 2018-09-12 07:18 | PDOC ---
Exam Note: Johnnie Note: PSYCHIATRIC PROGRESS NOTE This late entry 09/10/2018 covers elements, not covered in my initial note. SUBJECTIVE: I met with the patient individually in the evening of 09/10/2018. Reviewed information from nursing staff. Reviewed the chart. She slept 6-3/4 hours, calmer, less psychotic, less agitated. She does have upper respiratory tract infection and cough. She has some cellulitis and gout that Dr. Abrams is addressing. Cellulitis is in her left inner thigh. REVIEW OF SYSTEMS: She is extremely hard of hearing. She is much pleasant, not verbally interactive and resistive to non-verbal communication. No CV, , pulmonary, eye, ENT system symptoms on review. MENTAL STATUS EXAMINATION: She is oriented to herself. Insight and judgment, recent and remote memory, attention and concentration, fund of knowledge poor consistent with her diagnosis. LABORATORY DATA: White cell count is down to 2.8, 38% neutrophils. We will defer to Dr. Abrams. IMPRESSION: Bipolar I disorder mixed with psychotic features. Anxiety disorder unspecified. Major neurocognitive disorder possibly Alzheimer, vascular with delusion. Rest unchanged. Plan: I have carefully reviewed current psychotropics. There are no changes in the current treatment. Assessment: Vital Signs: VS - Last 72 Hours, by Label Date Time Temp Pulse Resp B/P (MAP) Pulse Ox O2 Delivery O2 Flow Rate FiO2 09/12/18 06:00 97.3 82 20 139/75 (96) 97 09/11/18 17:23 84 140/93 09/11/18 15:42 97.2 84 19 140/93 (109) 97 09/11/18 07:47 77 107/59 09/11/18 05:59 97.8 77 20 107/59 (75) 99 09/10/18 16:52 88 102/65 09/10/18 15:38 97.8 88 20 102/65 (77) 94 09/10/18 05:32 97.1 74 22 91/58 (69) 96 09/09/18 17:09 76 103/68 09/09/18 16:20 98.0 76 18 103/68 (80) 97 Room Air 09/09/18 08:41 71 94/61 09/09/18 08:40 71 94/61 Vital Signs Date Time Temp Pulse Resp B/P (MAP) Pulse Ox O2 Delivery O2 Flow Rate FiO2 09/12/18 06:00 97.3 82 20 139/75 (96) 97 09/09/18 16:20 Room Air I&O Intake and Output 09/12/18 07:01 Intake Total 1200 ml Balance 1200 ml Intake Oral 1200 ml # Voids 1 Labs: Laboratory Tests Test 09/11/18 11:35 09/11/18 16:26 09/11/18 19:49 Glucose (Fingerstick) 119 mg/dL (70-99) H 108 mg/dL (70-99) H 70 mg/dL (70-99) Current Medications: Meds: Current Medications Acetaminophen (Tylenol) 650 mg PRN Q6HRS PRN PO PAIN / TEMP Last administered on 09/12/18at 02:17; Start 08/11/18 at 21:00 Multi-Ingredient Ointment (Analgesic [place]) 1 yaima PRN QID PRN TP MUSCLE PAIN; Start 08/11/18 at 21:00 Al Hydroxide/Mg Hydroxide (Mylanta Plus Xs) 15 ml PRN AFTMEALHC PRN PO DYSPEPSIA; Start 08/11/18 at 21:00 Magnesium Hydroxide (Milk Of Magnesia) 2,400 mg PRN QHS PRN PO CONSTIPATION; Start 08/11/18 at 21:00 Alprazolam (Xanax) 0.5 mg PRN Q6HRS PRN PO ANXIETY / AGITATION Last administered on 08/21/18at 20:06; Start 08/11/18 at 22:30 Divalproex Sodium (Depakote Sprinkles) 250 mg BIDWMEALS PO Last administered on 08/13/18at 18:08; Start 08/12/18 at 08:00; Stop 08/13/18 at 20:26; Status DC Duloxetine HCl (Cymbalta) 60 mg BIDWMEALS PO Last administered on 08/13/18at 18 :08; Start 08/12/18 at 08:00; Stop 08/13/18 at 20:26; Status DC Risperidone (RisperDAL) 2 mg BIDWMEALS PO Last administered on 08/14/18at 17:45 ; Start 08/12/18 at 08:00; Stop 08/14/18 at 18:45; Status DC Trazodone HCl (Desyrel) 100 mg HS PO Last administered on 09/11/18 19:35; Start 08/11/18 at 22:30 Ascorbic Acid (Vitamin C) 500 mg BIDWMEALS PO Last administered on 09/11/18 17 :24; Start 08/12/18 at 08:00 Calcium Carbonate/ Glycine (Tums) 500 mg PRN Q6HRS PRN PO INDIGESTION; Start 08/11/18 at 22:15 Vitamin D (Vitamin D3) 2,000 unit DAILY PO Last administered on 09/11/18 07:50 ; Start 08/12/18 at 09:00 Diclofenac Sodium (Voltaren) 1 yaima QID TP Last administered on 09/11/18 19:37 ; Start 08/12/18 at 09:00 Guaifenesin (Mucinex Er) 600 mg BIDWMEALS PO Last administered on 09/11/18 17: 24; Start 08/12/18 at 08:00 Acetaminophen/ Hydrocodone Bitart (Lortab 5/325) 1 tab PRN Q6HRS PRN PO PAIN Last administered on 09/08/18 17:32; Start 08/11/18 at 22:15 Levothyroxine Sodium (Synthroid) 100 mcg DAILY06 PO Last administered on 05:48; Start 08/12/18 at 06:00 Lisinopril (Prinivil) 10 mg DAILY PO Last administered on 09/09/18 08:40; Start 08/12/18 at 09:00 Nitroglycerin (Nitrostat) 0.4 mg PRN Q5MIN PRN SL CHEST PAIN; Start 08/11/18 at 22:15 Nystatin (Nystop) 1 yaima BID TP Last administered on 09/11/18 19:38; Start at 09:00 Allopurinol (Zyloprim) 100 mg DAILY PO Last administered on 09/11/18 07:50; Start 08/12/18 at 09:00 Carvedilol (Coreg) 12.5 mg BIDWMEALS PO Last administered on 09/03/18 08:42; Start 08/12/18 at 08:00; Stop 09/04/18 at 11:25; Status DC Folic Acid (Folic Acid) 1 mg DAILY PO Last administered on 09/11/18 07:48; Start 08/12/18 at 09:00 Furosemide (Lasix) 40 mg DAILY PO Last administered on 09/11/18 07:48; Start 08/12/18 at 09:00 Insulin Human Lispro (HumaLOG) 5 units TIDWMEALS SQ Last administered on 17:20; Start 08/12/18 at 08:00 Insulin Glargine (Lantus) 10 units QHS SQ Last administered on 09/10/18 21:14 ; Start 08/11/18 at 23:00 Loperamide HCl (Imodium) 2 mg PRN Q6HRS PRN PO DIARRHEA; Start 08/11/18 at 22: 45 Non-Formulary Medication (Magnesium Hydroxide (Milk Of Magnesia)) 2,400 mg PRN DAILY PRN PO CONSTIPATION; Start 08/11/18 at 22:15; Status UNV Metformin HCl (Glucophage) 1,000 mg BIDWMEALS PO Last administered on 17:24; Start 08/12/18 at 08:00 Methotrexate (Rheumatrex) 15 mg WEEKLY PO Last administered on 09/08/18 08:16 ; Start 08/18/18 at 09:00 Multivitamins/ Calcium (Thera-M Plus) 1 tab DAILY PO Last administered on 07:49; Start 08/12/18 at 09:00 Glucose (Insta-Glucose) 15 gm PRN Q15MIN PRN PO LOW BLOOD SUGAR; Start at 08:15 Divalproex Sodium (Depakote Sprinkles) 500 mg BIDWMEALS PO ; Start 08/13/18 at 20:27; Stop 08/13/18 at 20:36; Status DC Duloxetine HCl (Cymbalta) 60 mg DAILY PO Last administered on 09/11/18 07:48; Start 08/14/18 at 09:00 Divalproex Sodium (Depakote Sprinkles) 500 mg BIDWMEALS PO Last administered on 09/11/18 17:24; Start 08/14/18 at 08:00 Risperidone (RisperDAL) 1.5 mg DAILY PO ; Start 08/14/18 at 19:00; Stop at 19:00; Status DC Risperidone (RisperDAL) 2 mg HS PO Last administered on 08/16/18at 18:51; Start 08/14/18 at 21:00; Stop 08/17/18 at 18:30; Status DC Risperidone (RisperDAL) 1.5 mg HS PO ; Start 08/18/18 at 21:00; Stop 08/18/18 at 21:00; Status DC Risperidone (RisperDAL) 1.5 mg DAILY PO Last administered on 08/17/18at 08:08; Start 08/15/18 at 09:00; Stop 08/17/18 at 18:30; Status DC Amantadine HCl (Symmetrel) 100 mg DAILY PO Last administered on 08/23/18at 08:00 ; Start 08/17/18 at 09:00; Stop 08/23/18 at 21:37; Status DC Risperidone (RisperDAL) 1.5 mg BID PO Last administered on 08/19/18at 08:15; Start 08/17/18 at 21:00; Stop 08/19/18 at 15:58; Status DC Risperidone (RisperDAL) 1 mg BID PO Last administered on 08/22/18at 11:33; Start 08/19/18 at 21:00; Stop 08/22/18 at 17:30; Status DC Risperidone (RisperDAL) 1 mg QHS PO Last administered on 08/24/18at 20:41; Start 08/22/18 at 21:00; Stop 08/25/18 at 18:41; Status DC Risperidone (RisperDAL) 0.5 mg DAILY PO Last administered on 08/25/18at 11:14; Start 08/23/18 at 09:00; Stop 08/25/18 at 09:00; Status DC Amantadine HCl (Symmetrel) 100 mg BID PO Last administered on 09/11/18at 19:38; Start 08/24/18 at 09:00 Risperidone (RisperDAL) 1.5 mg BID PO Last administered on 09/11/18at 19:35; Start 08/26/18 at 09:00 Risperidone (RisperDAL) 2 mg HS PO Last administered on 08/25/18at 20:03; Start 08/25/18 at 21:00; Stop 08/25/18 at 21:01; Status DC Trazodone HCl (Desyrel) 100 mg PRN QHS PRN PO INSOMNIA Last administered on 08/31at 02:29; Start 08/30/18 at 18:45 Potassium Chloride (Klor-Con) 20 meq TID PO Last administered on 09/03/18at 14: 25; Start 08/31/18 at 21:00; Stop 09/03/18 at 17:14; Status DC Doxycycline Hyclate (Vibra-Tab) 100 mg BID PO Last administered on 09/11/18at 19 :35; Start 09/03/18 at 21:00; Stop 09/13/18 at 20:59 Lactobacillus Rhamnosus (Culturelle) 1 cap BID PO Last administered on at 19:35; Start 09/03/18 at 21:00 Carvedilol (Coreg) 6.25 mg BIDWMEALS PO Last administered on 09/11/18at 17:23; Start 09/04/18 at 17:00 Active Scripts Active Reported Xanax (Alprazolam) 0.5 Mg Tablet 0.5 Mg PO PRN Q6HRS PRN Hydrocodone-Apap 5-325 (Hydrocodone Bit/Acetaminophen) 1 Each Tablet 1 Tab PO PRN Q6HRS PRN Voltaren (Diclofenac Sodium) 100 Gm Gel..gram. 4 Gm TP QID Nystatin 15 Gm Powder 1 Yaima TP BID Tums (Calcium Carbonate) 200 Mg Tab.chew 2 Tab PO PRN Q6HRS PRN Nitrostat (Nitroglycerin) 0.4 Mg Tab.subl 0.4 Mg SL PRN Q5MIN PRN Milk Of Magnesia (Magnesium Hydroxide) 2,400 Mg/10 Ml Oral.susp 2,400 Mg PO PRN DAILY PRN Loperamide (Loperamide Hcl) 2 Mg Tablet 2 Mg PO PRN Q6HRS PRN Vitamin C (Ascorbic Acid) 500 Mg Tablet 500 Mg PO BIDWMEALS Risperdal (Risperidone) 2 Mg Tablet 2 Mg PO BIDWMEALS Mucinex (Guaifenesin) 600 Mg Tablet.er 600 Mg PO BIDWMEALS Metformin Hcl 1,000 Mg Tablet 1,000 Mg PO BIDWMEALS Cymbalta (Duloxetine Hcl) 60 Mg Capsule.dr 60 Mg PO BIDWMEALS Depakote Sprinkle (Divalproex Sodium) 125 Mg Cap.sprink 250 Mg PO BIDWMEALS Coreg (Carvedilol) 12.5 Mg Tablet 12.5 Mg PO BIDWMEALS Vitamin D3 (Cholecalciferol (Vitamin D3)) 1,000 Unit Tablet 2,000 Unit PO DAILY Trazodone Hcl 100 Mg Tablet 100 Mg PO HS Multivitamins (Multivitamin) 1 Each Tablet 1 Tab PO DAILY Methotrexate (Methotrexate Sodium) 2.5 Mg Tablet 15 Mg PO WEEKLY Lisinopril 10 Mg Tablet 10 Mg PO DAILY Levothyroxine Sodium 100 Mcg Tablet 100 Mcg PO DAILYAC Lasix (Furosemide) 40 Mg Tablet 40 Mg PO DAILY Folic Acid 1 Mg Tablet 1 Mg PO DAILY Allopurinol 100 Mg Tablet 100 Mg PO DAILY Novolog (Insulin Aspart) 100 Unit/1 Ml Vial 5 Unit SQ TIDWMEALS Levemir (Insulin Detemir) 100 Unit/1 Ml Vial 10 Unit SQ HS I have reviewed the current psychotropics carefully including drug interactions. Risk benefit ratio favors no change other than as noted in my dictated progress note. Diagnosis: Problems: (1) Anxiety disorder (2) Major depressive disorder, recurrent episode (3) Impulse control disorder (4) Dementia in Alzheimer's disease with delusions (5) Dementia in Alzheimer's disease with depression (6) Dementia, vascular, with delusions (7) Dementia, vascular, with depression KAITLIN DREW MD Sep 12, 2018 07:18
[2018-09-12] MEDS: CARVEDILOL 6.25 MG TABLET PO SCH ×2 (07:47→17:09)
[2018-09-12] MEDS: ASCORBIC ACID 500 MG TABLET PO SCH ×2 (07:47→17:08)
[2018-09-12] MEDS: ALLOPURINOL 100 MG TABLET. PO SCH (07:47)
[2018-09-12] MEDS: DULoxetine HCL 60 MG CAPSULE.DR PO SCH (07:48)
[2018-09-12] MEDS: risperiDONE 0.5 MG TABLET. PO SCH ×2 (07:48→19:39)
[2018-09-12] MEDS: LISINOPRIL 10 MG TABLET PO SCH (07:48)
[2018-09-12] MEDS: CHOLECALCIFEROL (VITAMIN D3) 1,000 UNIT TABLET PO SCH (07:49)
[2018-09-12] MEDS: AMANTADINE HCL 100 MG CAPSULE PO SCH ×2 (07:49→19:39)
[2018-09-12] MEDS: MULTIVITAMIN with MINERAL TABLET. PO SCH (07:49)
[2018-09-12] MEDS: DOXYCYCLINE HYCLATE 100 MG TABLET PO SCH ×3 (07:49→19:46)
[2018-09-12] MEDS: LACTOBACILLUS RHAMNOSUS GG 1 CAPSULE. PO SCH ×2 (07:49→19:39)
[2018-09-12] MEDS: FUROSEMIDE 40 MG TABLET PO SCH (07:49)
[2018-09-12] MEDS: FOLIC ACID 1 MG TABLET PO SCH (07:49)
[2018-09-12] MEDS: metFORMIN 500 MG TABLET PO SCH ×2 (07:49→17:09)
[2018-09-12] MEDS: DIVALPROEX 125 MG CAP.SPRINK PO SCH ×2 (07:50→17:10)
[2018-09-12] MEDS: NYSTATIN TOPICAL POWDER 15GM BOTTLE. TP SCH ×2 (07:50→19:39)
[2018-09-12] MEDS: DICLOFENAC SODIUM 1% TOPICAL GEL 100GM TUBE. TP SCH ×6 (07:50→19:46)
[2018-09-12] MEDS: INSULIN LISPRO 300 UNITS/3 ML INSULN.PEN. SQ SCH ×3 (08:00→17:11)
[2018-09-12 16:43] VITALS: BP 117/76
[2018-09-12] MEDS: traZODone 100 MG TABLET. PO SCH (19:39)
[2018-09-12] MEDS: INSULIN GLARGINE 300 UNITS/3 ML INSULN.PEN. SQ SCH (20:19)
[2018-09-12 20:27] VITALS: BP 143/79
--- NOTE | 2018-09-12 22:35 | PDOC ---
Exam Note: Johnnie Note: Please also refer to the separate dictated note~for this date of service dictated separately.~Patient seen individually. Discussed the patient with Nursing staff reviewed the chart.~Reviewed interim history and current functioning. Reviewed vital signs,~Labs/ Radiology~and current medications noted below. Continue current treatment with the changes noted in the dictated addendum note Assessment: Vital Signs: Vital Signs Date Time Temp Pulse Resp B/P (MAP) Pulse Ox O2 Delivery O2 Flow Rate FiO2 09/12/18 20:27 97.2 88 20 143/79 (100) 99 Room Air I&O Intake and Output 09/12/18 07:01 Intake Total 1200 ml Balance 1200 ml Intake Oral 1200 ml # Voids 1 Labs: Laboratory Tests Test 09/12/18 07:22 09/12/18 11:44 09/12/18 16:37 09/12/18 19:00 Glucose (Fingerstick) 81 mg/dL (70-99) 144 mg/dL (70-99) H 103 mg/dL (70-99) H LL-Yck-L-Type Natriuretic Peptide 42511 pg/mL (0-124) H Test 09/12/18 19:17 09/12/18 20:45 Glucose (Fingerstick) 101 mg/dL (70-99) H Creatine Kinase 33 U/L (26-192) Troponin I Quantitative 0.050 ng/mL (0-0.055) Current Medications: Meds: Current Medications Acetaminophen (Tylenol) 650 mg PRN Q6HRS PRN PO PAIN / TEMP Last administered on 09/12/18at 02:17; Start 08/11/18 at 21:00 Multi-Ingredient Ointment (Analgesic [place]) 1 yaima PRN QID PRN TP MUSCLE PAIN; Start 08/11/18 at 21:00 Al Hydroxide/Mg Hydroxide (Mylanta Plus Xs) 15 ml PRN AFTMEALHC PRN PO DYSPEPSIA; Start 08/11/18 at 21:00 Magnesium Hydroxide (Milk Of Magnesia) 2,400 mg PRN QHS PRN PO CONSTIPATION; Start 08/11/18 at 21:00 Alprazolam (Xanax) 0.5 mg PRN Q6HRS PRN PO ANXIETY / AGITATION Last administered on 08/21/18at 20:06; Start 08/11/18 at 22:30 Divalproex Sodium (Depakote Sprinkles) 250 mg BIDWMEALS PO Last administered on 08/13/18at 18:08; Start 08/12/18 at 08:00; Stop 08/13/18 at 20:26; Status DC Duloxetine HCl (Cymbalta) 60 mg BIDWMEALS PO Last administered on 08/13/18at 18 :08; Start 08/12/18 at 08:00; Stop 08/13/18 at 20:26; Status DC Risperidone (RisperDAL) 2 mg BIDWMEALS PO Last administered on 08/14/18at 17:45 ; Start 08/12/18 at 08:00; Stop 08/14/18 at 18:45; Status DC Trazodone HCl (Desyrel) 100 mg HS PO Last administered on 09/12/18 19:39; Start 08/11/18 at 22:30 Ascorbic Acid (Vitamin C) 500 mg BIDWMEALS PO Last administered on 09/12/18 17 :08; Start 08/12/18 at 08:00 Calcium Carbonate/ Glycine (Tums) 500 mg PRN Q6HRS PRN PO INDIGESTION; Start 08/11/18 at 22:15 Vitamin D (Vitamin D3) 2,000 unit DAILY PO Last administered on 09/12/18 07:49 ; Start 08/12/18 at 09:00 Diclofenac Sodium (Voltaren) 1 yaima QID TP Last administered on 09/12/18 19:46 ; Start 08/12/18 at 09:00 Guaifenesin (Mucinex Er) 600 mg BIDWMEALS PO Last administered on 09/12/18 17: 08; Start 08/12/18 at 08:00 Acetaminophen/ Hydrocodone Bitart (Lortab 5/325) 1 tab PRN Q6HRS PRN PO PAIN Last administered on 09/08/18 17:32; Start 08/11/18 at 22:15 Levothyroxine Sodium (Synthroid) 100 mcg DAILY06 PO Last administered on 05:48; Start 08/12/18 at 06:00 Lisinopril (Prinivil) 10 mg DAILY PO Last administered on 09/12/18 07:48; Start 08/12/18 at 09:00 Nitroglycerin (Nitrostat) 0.4 mg PRN Q5MIN PRN SL CHEST PAIN; Start 08/11/18 at 22:15 Nystatin (Nystop) 1 yaima BID TP Last administered on 09/12/18 19:39; Start at 09:00 Allopurinol (Zyloprim) 100 mg DAILY PO Last administered on 09/12/18 07:47; Start 08/12/18 at 09:00 Carvedilol (Coreg) 12.5 mg BIDWMEALS PO Last administered on 09/03/18 08:42; Start 08/12/18 at 08:00; Stop 09/04/18 at 11:25; Status DC Folic Acid (Folic Acid) 1 mg DAILY PO Last administered on 09/12/18 07:49; Start 08/12/18 at 09:00 Furosemide (Lasix) 40 mg DAILY PO Last administered on 09/12/18 07:49; Start 08/12/18 at 09:00 Insulin Human Lispro (HumaLOG) 5 units TIDWMEALS SQ Last administered on 17:11; Start 08/12/18 at 08:00 Insulin Glargine (Lantus) 10 units QHS SQ Last administered on 09/10/18 21:14 ; Start 08/11/18 at 23:00 Loperamide HCl (Imodium) 2 mg PRN Q6HRS PRN PO DIARRHEA; Start 08/11/18 at 22: 45 Non-Formulary Medication (Magnesium Hydroxide (Milk Of Magnesia)) 2,400 mg PRN DAILY PRN PO CONSTIPATION; Start 08/11/18 at 22:15; Status UNV Metformin HCl (Glucophage) 1,000 mg BIDWMEALS PO Last administered on 17:09; Start 08/12/18 at 08:00 Methotrexate (Rheumatrex) 15 mg WEEKLY PO Last administered on 09/08/18 08:16 ; Start 08/18/18 at 09:00 Multivitamins/ Calcium (Thera-M Plus) 1 tab DAILY PO Last administered on 07:49; Start 08/12/18 at 09:00 Glucose (Insta-Glucose) 15 gm PRN Q15MIN PRN PO LOW BLOOD SUGAR; Start at 08:15 Divalproex Sodium (Depakote Sprinkles) 500 mg BIDWMEALS PO ; Start 08/13/18 at 20:27; Stop 08/13/18 at 20:36; Status DC Duloxetine HCl (Cymbalta) 60 mg DAILY PO Last administered on 09/12/18at 07:48; Start 08/14/18 at 09:00 Divalproex Sodium (Depakote Sprinkles) 500 mg BIDWMEALS PO Last administered on 09/12/18at 17:10; Start 08/14/18 at 08:00 Risperidone (RisperDAL) 1.5 mg DAILY PO ; Start 08/14/18 at 19:00; Stop at 19:00; Status DC Risperidone (RisperDAL) 2 mg HS PO Last administered on 08/16/18at 18:51; Start 08/14/18 at 21:00; Stop 08/17/18 at 18:30; Status DC Risperidone (RisperDAL) 1.5 mg HS PO ; Start 08/18/18 at 21:00; Stop 08/18/18 at 21:00; Status DC Risperidone (RisperDAL) 1.5 mg DAILY PO Last administered on 08/17/18at 08:08; Start 08/15/18 at 09:00; Stop 08/17/18 at 18:30; Status DC Amantadine HCl (Symmetrel) 100 mg DAILY PO Last administered on 08/23/18at 08:00 ; Start 08/17/18 at 09:00; Stop 08/23/18 at 21:37; Status DC Risperidone (RisperDAL) 1.5 mg BID PO Last administered on 08/19/18at 08:15; Start 08/17/18 at 21:00; Stop 08/19/18 at 15:58; Status DC Risperidone (RisperDAL) 1 mg BID PO Last administered on 08/22/18at 11:33; Start 08/19/18 at 21:00; Stop 08/22/18 at 17:30; Status DC Risperidone (RisperDAL) 1 mg QHS PO Last administered on 08/24/18at 20:41; Start 08/22/18 at 21:00; Stop 08/25/18 at 18:41; Status DC Risperidone (RisperDAL) 0.5 mg DAILY PO Last administered on 08/25/18 11:14; Start 08/23/18 at 09:00; Stop 08/25/18 at 09:00; Status DC Amantadine HCl (Symmetrel) 100 mg BID PO Last administered on 09/12/18 19:39; Start 08/24/18 at 09:00 Risperidone (RisperDAL) 1.5 mg BID PO Last administered on 09/12/18 19:39; Start 08/26/18 at 09:00 Risperidone (RisperDAL) 2 mg HS PO Last administered on 08/25/18 20:03; Start 08/25/18 at 21:00; Stop 08/25/18 at 21:01; Status DC Trazodone HCl (Desyrel) 100 mg PRN QHS PRN PO INSOMNIA Last administered on 08/31 02:29; Start 08/30/18 at 18:45 Potassium Chloride (Klor-Con) 20 meq TID PO Last administered on 09/03/18 14: 25; Start 08/31/18 at 21:00; Stop 09/03/18 at 17:14; Status DC Doxycycline Hyclate (Vibra-Tab) 100 mg BID PO Last administered on 09/12/18 19 :46; Start 09/03/18 at 21:00; Stop 09/13/18 at 20:59 Lactobacillus Rhamnosus (Culturelle) 1 cap BID PO Last administered on 19:39; Start 09/03/18 at 21:00 Carvedilol (Coreg) 6.25 mg BIDWMEALS PO Last administered on 09/12/18at 17:09; Start 09/04/18 at 17:00 Active Scripts Active Reported Xanax (Alprazolam) 0.5 Mg Tablet 0.5 Mg PO PRN Q6HRS PRN Hydrocodone-Apap 5-325 (Hydrocodone Bit/Acetaminophen) 1 Each Tablet 1 Tab PO PRN Q6HRS PRN Voltaren (Diclofenac Sodium) 100 Gm Gel..gram. 4 Gm TP QID Nystatin 15 Gm Powder 1 Yaima TP BID Tums (Calcium Carbonate) 200 Mg Tab.chew 2 Tab PO PRN Q6HRS PRN Nitrostat (Nitroglycerin) 0.4 Mg Tab.subl 0.4 Mg SL PRN Q5MIN PRN Milk Of Magnesia (Magnesium Hydroxide) 2,400 Mg/10 Ml Oral.susp 2,400 Mg PO PRN DAILY PRN Loperamide (Loperamide Hcl) 2 Mg Tablet 2 Mg PO PRN Q6HRS PRN Vitamin C (Ascorbic Acid) 500 Mg Tablet 500 Mg PO BIDWMEALS Risperdal (Risperidone) 2 Mg Tablet 2 Mg PO BIDWMEALS Mucinex (Guaifenesin) 600 Mg Tablet.er 600 Mg PO BIDWMEALS Metformin Hcl 1,000 Mg Tablet 1,000 Mg PO BIDWMEALS Cymbalta (Duloxetine Hcl) 60 Mg Capsule.dr 60 Mg PO BIDWMEALS Depakote Sprinkle (Divalproex Sodium) 125 Mg Cap.sprink 250 Mg PO BIDWMEALS Coreg (Carvedilol) 12.5 Mg Tablet 12.5 Mg PO BIDWMEALS Vitamin D3 (Cholecalciferol (Vitamin D3)) 1,000 Unit Tablet 2,000 Unit PO DAILY Trazodone Hcl 100 Mg Tablet 100 Mg PO HS Multivitamins (Multivitamin) 1 Each Tablet 1 Tab PO DAILY Methotrexate (Methotrexate Sodium) 2.5 Mg Tablet 15 Mg PO WEEKLY Lisinopril 10 Mg Tablet 10 Mg PO DAILY Levothyroxine Sodium 100 Mcg Tablet 100 Mcg PO DAILYAC Lasix (Furosemide) 40 Mg Tablet 40 Mg PO DAILY Folic Acid 1 Mg Tablet 1 Mg PO DAILY Allopurinol 100 Mg Tablet 100 Mg PO DAILY Novolog (Insulin Aspart) 100 Unit/1 Ml Vial 5 Unit SQ TIDWMEALS Levemir (Insulin Detemir) 100 Unit/1 Ml Vial 10 Unit SQ HS I have reviewed the current psychotropics carefully including drug interactions. Risk benefit ratio favors no change other than as noted in my dictated progress note. Diagnosis: Problems: (1) Anxiety disorder (2) Major depressive disorder, recurrent episode (3) Impulse control disorder (4) Dementia in Alzheimer's disease with delusions (5) Dementia in Alzheimer's disease with depression (6) Dementia, vascular, with delusions (7) Dementia, vascular, with depression KAITLIN DREW MD Sep 12, 2018 22:35
[2018-09-13 02:42] LABS: HEMATOCRIT 34.1 % (36.0-47.0); HEMOGLOBIN 11.3 g/dL (12.0-15.5); RED BLOOD COUNT 3.54 x10^6/uL (3.50-5.40); RED CELL DISTRIBUTION WIDTH 18.1 % (11.5-14.5); WHITE BLOOD COUNT 4.6 x10^3/uL (4.0-11.0)
[2018-09-13 02:53] LABS: ALBUMIN 2.2 g/dL (3.4-5.0); ALBUMIN/GLOBULIN RATIO 0.6 (1.0-1.7); CALCIUM 8.6 mg/dL (8.5-10.1); GFR 56.7; POTASSIUM 3.5 mmol/L (3.5-5.1); TOTAL BILIRUBIN 0.3 mg/dL (0.2-1.0); TOTAL PROTEIN 5.9 g/dL (6.4-8.2)
[2018-09-13 05:46] VITALS: BP 108/65
[2018-09-13] MEDS: LEVOTHYROXINE 100 MCG TABLET PO SCH (05:56)
[2018-09-13] MEDS: INSULIN LISPRO 300 UNITS/3 ML INSULN.PEN. SQ SCH ×4 (08:00→17:21)
[2018-09-13] MEDS: AMANTADINE HCL 100 MG CAPSULE PO SCH ×2 (09:12→20:13)
[2018-09-13] MEDS: ALLOPURINOL 100 MG TABLET. PO SCH (09:12)
[2018-09-13] MEDS: FUROSEMIDE 40 MG TABLET PO SCH ×2 (09:12→20:13)
[2018-09-13] MEDS: DOXYCYCLINE HYCLATE 100 MG TABLET PO SCH ×2 (09:13→20:13)
[2018-09-13] MEDS: DIVALPROEX 125 MG CAP.SPRINK PO SCH ×2 (09:13→17:19)
[2018-09-13] MEDS: CHOLECALCIFEROL (VITAMIN D3) 1,000 UNIT TABLET PO SCH (09:13)
[2018-09-13] MEDS: LACTOBACILLUS RHAMNOSUS GG 1 CAPSULE. PO SCH ×2 (09:13→20:13)
[2018-09-13] MEDS: FOLIC ACID 1 MG TABLET PO SCH (09:13)
[2018-09-13] MEDS: MULTIVITAMIN with MINERAL TABLET. PO SCH (09:14)
[2018-09-13] MEDS: ASCORBIC ACID 500 MG TABLET PO SCH ×2 (09:14→17:19)
[2018-09-13] MEDS: risperiDONE 0.5 MG TABLET. PO SCH ×2 (09:14→20:13)
[2018-09-13] MEDS: DULoxetine HCL 60 MG CAPSULE.DR PO SCH (09:14)
[2018-09-13] MEDS: LISINOPRIL 10 MG TABLET PO SCH (09:16)
[2018-09-13] MEDS: metFORMIN 500 MG TABLET PO SCH ×2 (09:17→17:19)
[2018-09-13 11:19] VITALS: BP 133/65
[2018-09-13] MEDS: CARVEDILOL 6.25 MG TABLET PO SCH ×2 (11:27→17:19)
[2018-09-13] MEDS: NYSTATIN TOPICAL POWDER 15GM BOTTLE. TP SCH ×2 (11:38→20:14)
[2018-09-13] MEDS: DICLOFENAC SODIUM 1% TOPICAL GEL 100GM TUBE. TP SCH ×3 (12:23→20:14)
--- NOTE | 2018-09-13 12:35 | PDOC2 ---
INEZBHASKAR Brad [employer] 09/13/18 1235: CONSULT Date of Admission DATE: 09/13/18 TIME: 12:33 Reason for Consult: cp Problem List Problems Medical Problems: (1) Schizo-affective schizophrenia Status: Acute History of Present Illness Ms Murillo is a 57 year old female initially admitted due to issues of compliance with medications, as well as aggression and self harming behavious. She is deaf and communication is very limited. Nursing staff is able to provide some sign language support. She apparenlty began complianing of chest pain about 5pm last night and reports the pain has been constant since that time. She denies shortness of breath or congestive symptoms but staff reports she has had a cough. She reports pain is worse with palpation of her mid sternal area and left sternal border. She reports increased pain with deep breathing. She does have a history of chronic angina and heart failure, per the chart but she denies any CO, stents or heart cath. The majority of history is obtained from the chart. Past Medical History severe sensorineural deafness, rheumatoid arthritis, type 2 diabetes mellitus, gout, hypothyroidism, hyperlipidemia, chronic yeast infections in the abdominal folds and under breasts, hypertension, congestive heart failure and chronic angina. Past Surgical History amputation of her second toe on the right foot. Family History non contributory Social History non smoker, no significant ETOH, no illicit drugs, resident of [place] Current Medications Current Medications Acetaminophen (Tylenol) 650 mg PRN Q6HRS PRN PO PAIN / TEMP Last administered on 09/12/18at 02:17; Start 08/11/18 at 21:00 Multi-Ingredient Ointment (Analgesic [place]) 1 yaima PRN QID PRN TP MUSCLE PAIN; Start 08/11/18 at 21:00 Al Hydroxide/Mg Hydroxide (Mylanta Plus Xs) 15 ml PRN AFTMEALHC PRN PO DYSPEPSIA; Start 08/11/18 at 21:00 Magnesium Hydroxide (Milk Of Magnesia) 2,400 mg PRN QHS PRN PO CONSTIPATION; Start 08/11/18 at 21:00 Alprazolam (Xanax) 0.5 mg PRN Q6HRS PRN PO ANXIETY / AGITATION Last administered on 08/21/18at 20:06; Start 08/11/18 at 22:30 Divalproex Sodium (Depakote Sprinkles) 250 mg BIDWMEALS PO Last administered on 08/13/18at 18:08; Start 08/12/18 at 08:00; Stop 08/13/18 at 20:26; Status DC Duloxetine HCl (Cymbalta) 60 mg BIDWMEALS PO Last administered on 08/13/18at 18 :08; Start 08/12/18 at 08:00; Stop 08/13/18 at 20:26; Status DC Risperidone (RisperDAL) 2 mg BIDWMEALS PO Last administered on 08/14/18at 17:45 ; Start 08/12/18 at 08:00; Stop 08/14/18 at 18:45; Status DC Trazodone HCl (Desyrel) 100 mg HS PO Last administered on 09/12/18 19:39; Start 08/11/18 at 22:30 Ascorbic Acid (Vitamin C) 500 mg BIDWMEALS PO Last administered on 09/13/18 09 :14; Start 08/12/18 at 08:00 Calcium Carbonate/ Glycine (Tums) 500 mg PRN Q6HRS PRN PO INDIGESTION; Start 08/11/18 at 22:15 Vitamin D (Vitamin D3) 2,000 unit DAILY PO Last administered on 09/13/18 09:13 ; Start 08/12/18 at 09:00 Diclofenac Sodium (Voltaren) 1 yaima QID TP Last administered on 09/13/18 12:23 ; Start 08/12/18 at 09:00 Guaifenesin (Mucinex Er) 600 mg BIDWMEALS PO Last administered on 09/13/18 09: 14; Start 08/12/18 at 08:00 Acetaminophen/ Hydrocodone Bitart (Lortab 5/325) 1 tab PRN Q6HRS PRN PO PAIN Last administered on 09/08/18 17:32; Start 08/11/18 at 22:15 Levothyroxine Sodium (Synthroid) 100 mcg DAILY06 PO Last administered on 05:56; Start 08/12/18 at 06:00 Lisinopril (Prinivil) 10 mg DAILY PO Last administered on 09/13/18 09:16; Start 08/12/18 at 09:00 Nitroglycerin (Nitrostat) 0.4 mg PRN Q5MIN PRN SL CHEST PAIN; Start 08/11/18 at 22:15 Nystatin (Nystop) 1 yaima BID TP Last administered on 09/13/18 11:38; Start at 09:00 Allopurinol (Zyloprim) 100 mg DAILY PO Last administered on 09/13/18 09:12; Start 08/12/18 at 09:00 Carvedilol (Coreg) 12.5 mg BIDWMEALS PO Last administered on 09/03/18 08:42; Start 08/12/18 at 08:00; Stop 09/04/18 at 11:25; Status DC Folic Acid (Folic Acid) 1 mg DAILY PO Last administered on 09/13/18 09:13; Start 08/12/18 at 09:00 Furosemide (Lasix) 40 mg DAILY PO Last administered on 09/13/18 09:12; Start 08/12/18 at 09:00 Insulin Human Lispro (HumaLOG) 5 units TIDWMEALS SQ Last administered on 12:09; Start 08/12/18 at 08:00 Insulin Glargine (Lantus) 10 units QHS SQ Last administered on 09/10/18 21:14 ; Start 08/11/18 at 23:00 Loperamide HCl (Imodium) 2 mg PRN Q6HRS PRN PO DIARRHEA; Start 08/11/18 at 22: 45 Non-Formulary Medication (Magnesium Hydroxide (Milk Of Magnesia)) 2,400 mg PRN DAILY PRN PO CONSTIPATION; Start 08/11/18 at 22:15; Status UNV Metformin HCl (Glucophage) 1,000 mg BIDWMEALS PO Last administered on 09:17; Start 08/12/18 at 08:00 Methotrexate (Rheumatrex) 15 mg WEEKLY PO Last administered on 09/08/18 08:16 ; Start 08/18/18 at 09:00 Multivitamins/ Calcium (Thera-M Plus) 1 tab DAILY PO Last administered on 09:14; Start 08/12/18 at 09:00 Glucose (Insta-Glucose) 15 gm PRN Q15MIN PRN PO LOW BLOOD SUGAR; Start at 08:15 Divalproex Sodium (Depakote Sprinkles) 500 mg BIDWMEALS PO ; Start 08/13/18 at 20:27; Stop 08/13/18 at 20:36; Status DC Duloxetine HCl (Cymbalta) 60 mg DAILY PO Last administered on 09/13/18at 09:14; Start 08/14/18 at 09:00 Divalproex Sodium (Depakote Sprinkles) 500 mg BIDWMEALS PO Last administered on 09/13/18at 09:13; Start 08/14/18 at 08:00 Risperidone (RisperDAL) 1.5 mg DAILY PO ; Start 08/14/18 at 19:00; Stop at 19:00; Status DC Risperidone (RisperDAL) 2 mg HS PO Last administered on 08/16/18at 18:51; Start 08/14/18 at 21:00; Stop 08/17/18 at 18:30; Status DC Risperidone (RisperDAL) 1.5 mg HS PO ; Start 08/18/18 at 21:00; Stop 08/18/18 at 21:00; Status DC Risperidone (RisperDAL) 1.5 mg DAILY PO Last administered on 08/17/18at 08:08; Start 08/15/18 at 09:00; Stop 08/17/18 at 18:30; Status DC Amantadine HCl (Symmetrel) 100 mg DAILY PO Last administered on 08/23/18at 08:00 ; Start 08/17/18 at 09:00; Stop 08/23/18 at 21:37; Status DC Risperidone (RisperDAL) 1.5 mg BID PO Last administered on 08/19/18at 08:15; Start 08/17/18 at 21:00; Stop 08/19/18 at 15:58; Status DC Risperidone (RisperDAL) 1 mg BID PO Last administered on 08/22/18at 11:33; Start 08/19/18 at 21:00; Stop 08/22/18 at 17:30; Status DC Risperidone (RisperDAL) 1 mg QHS PO Last administered on 08/24/18at 20:41; Start 08/22/18 at 21:00; Stop 08/25/18 at 18:41; Status DC Risperidone (RisperDAL) 0.5 mg DAILY PO Last administered on 08/25/18 11:14; Start 08/23/18 at 09:00; Stop 08/25/18 at 09:00; Status DC Amantadine HCl (Symmetrel) 100 mg BID PO Last administered on 09/13/18 09:12; Start 08/24/18 at 09:00 Risperidone (RisperDAL) 1.5 mg BID PO Last administered on 09/13/18 09:14; Start 08/26/18 at 09:00 Risperidone (RisperDAL) 2 mg HS PO Last administered on 08/25/18 20:03; Start 08/25/18 at 21:00; Stop 08/25/18 at 21:01; Status DC Trazodone HCl (Desyrel) 100 mg PRN QHS PRN PO INSOMNIA Last administered on 08/31 02:29; Start 08/30/18 at 18:45 Potassium Chloride (Klor-Con) 20 meq TID PO Last administered on 09/03/18 14: 25; Start 08/31/18 at 21:00; Stop 09/03/18 at 17:14; Status DC Doxycycline Hyclate (Vibra-Tab) 100 mg BID PO Last administered on 09/13/18 09 :13; Start 09/03/18 at 21:00; Stop 09/13/18 at 20:59 Lactobacillus Rhamnosus (Culturelle) 1 cap BID PO Last administered on 09:13; Start 09/03/18 at 21:00 Carvedilol (Coreg) 6.25 mg BIDWMEALS PO Last administered on 09/13/18at 11:27; Start 09/04/18 at 17:00 Active Scripts Active Reported Xanax (Alprazolam) 0.5 Mg Tablet 0.5 Mg PO PRN Q6HRS PRN Hydrocodone-Apap 5-325 (Hydrocodone Bit/Acetaminophen) 1 Each Tablet 1 Tab PO PRN Q6HRS PRN Voltaren (Diclofenac Sodium) 100 Gm Gel..gram. 4 Gm TP QID Nystatin 15 Gm Powder 1 Yaima TP BID Tums (Calcium Carbonate) 200 Mg Tab.chew 2 Tab PO PRN Q6HRS PRN Nitrostat (Nitroglycerin) 0.4 Mg Tab.subl 0.4 Mg SL PRN Q5MIN PRN Milk Of Magnesia (Magnesium Hydroxide) 2,400 Mg/10 Ml Oral.susp 2,400 Mg PO PRN DAILY PRN Loperamide (Loperamide Hcl) 2 Mg Tablet 2 Mg PO PRN Q6HRS PRN Vitamin C (Ascorbic Acid) 500 Mg Tablet 500 Mg PO BIDWMEALS Risperdal (Risperidone) 2 Mg Tablet 2 Mg PO BIDWMEALS Mucinex (Guaifenesin) 600 Mg Tablet.er 600 Mg PO BIDWMEALS Metformin Hcl 1,000 Mg Tablet 1,000 Mg PO BIDWMEALS Cymbalta (Duloxetine Hcl) 60 Mg Capsule.dr 60 Mg PO BIDWMEALS Depakote Sprinkle (Divalproex Sodium) 125 Mg Cap.sprink 250 Mg PO BIDWMEALS Coreg (Carvedilol) 12.5 Mg Tablet 12.5 Mg PO BIDWMEALS Vitamin D3 (Cholecalciferol (Vitamin D3)) 1,000 Unit Tablet 2,000 Unit PO DAILY Trazodone Hcl 100 Mg Tablet 100 Mg PO HS Multivitamins (Multivitamin) 1 Each Tablet 1 Tab PO DAILY Methotrexate (Methotrexate Sodium) 2.5 Mg Tablet 15 Mg PO WEEKLY Lisinopril 10 Mg Tablet 10 Mg PO DAILY Levothyroxine Sodium 100 Mcg Tablet 100 Mcg PO DAILYAC Lasix (Furosemide) 40 Mg Tablet 40 Mg PO DAILY Folic Acid 1 Mg Tablet 1 Mg PO DAILY Allopurinol 100 Mg Tablet 100 Mg PO DAILY Novolog (Insulin Aspart) 100 Unit/1 Ml Vial 5 Unit SQ TIDWMEALS Levemir (Insulin Detemir) 100 Unit/1 Ml Vial 10 Unit SQ HS Allergies: Coded Allergies: amoxicillin (Verified Allergy, Intermediate, 08/13/18) citalopram (Verified Allergy, Intermediate, 08/13/18) clavulanic acid (Verified Allergy, Intermediate, 08/13/18) gabapentin (Verified Allergy, Intermediate, 08/13/18) Review of System as per HPI General: Alert, Cooperative, No acute distress HEENT: Atraumatic, EOMI Lungs: Clear to auscultation, Normal air movement Heart: Normal S1, Normal S2, Other (no gallops, clicks or rubs. + reproducible pain on palpation left sternal border. ) Abdomen: Normal bowel sounds, Soft, No tenderness Extremities: No cyanosis, No edema, Normal pulses Neuro: Strength at 5/5 X4 ext Psych/Mental Status: Mood NL VITALS Vital Signs Date Time Temp Pulse Resp B/P (MAP) Pulse Ox O2 Delivery O2 Flow Rate FiO2 09/13/18 11:27 76 133/65 09/13/18 05:46 97.9 21 99 Room Air Labs Laboratory Tests Test 09/11/18 16:26 09/11/18 19:49 09/12/18 07:22 09/12/18 11:44 Glucose (Fingerstick) 108 mg/dL (70-99) 70 mg/dL (70-99) 81 mg/dL (70-99) 144 mg/dL (70-99) Test 09/12/18 16:37 09/12/18 19:00 09/12/18 19:17 09/12/18 20:45 Glucose (Fingerstick) 103 mg/dL (70-99) 101 mg/dL (70-99) HQ-Zsu-W-Type Natriuretic Peptide 35626 pg/mL (0-124) Creatine Kinase 33 U/L (26-192) Troponin I Quantitative 0.050 ng/mL (0-0.055) Test 09/12/18 23:35 09/13/18 02:26 09/13/18 07:17 09/13/18 11:28 Troponin I Quantitative 0.058 ng/mL (0-0.055) 0.054 ng/mL (0-0.055) White Blood Count 4.6 x10^3/uL (4.0-11.0) Red Blood Count 3.54 x10^6/uL (3.50-5.40) Hemoglobin 11.3 g/dL (12.0-15.5) Hematocrit 34.1 % (36.0-47.0) Mean Corpuscular Volume 96 fL (79-100) Mean Corpuscular Hemoglobin 32 pg (25-35) Mean Corpuscular Hemoglobin Concent 33 g/dL (31-37) Red Cell Distribution Width 18.1 % (11.5-14.5) Platelet Count 146 x10^3/uL (140-400) Sodium Level 141 mmol/L (136-145) Potassium Level 3.5 mmol/L (3.5-5.1) Chloride Level 104 mmol/L (98-107) Carbon Dioxide Level 32 mmol/L (21-32) Anion Gap 5 (6-14) Blood Urea Nitrogen 14 mg/dL (7-20) Creatinine 1.0 mg/dL (0.6-1.0) Estimated GFR (Cockcroft-Gault) 56.7 BUN/Creatinine Ratio 14 (6-20) Glucose Level 97 mg/dL (70-99) Calcium Level 8.6 mg/dL (8.5-10.1) Total Bilirubin 0.3 mg/dL (0.2-1.0) Aspartate Amino Transf (AST/SGOT) 15 U/L (15-37) Alanine Aminotransferase (ALT/SGPT) 12 U/L (14-59) Alkaline Phosphatase 70 U/L (46-116) Total Protein 5.9 g/dL (6.4-8.2) Albumin 2.2 g/dL (3.4-5.0) Albumin/Globulin Ratio 0.6 (1.0-1.7) Glucose (Fingerstick) 116 mg/dL (70-99) 108 mg/dL (70-99) Images EKG sinus rhythm, LBBB CXR - 09/10/18 Impression: Mild cardiomegaly with Central vascular congestion. CXR 09/13/18 Pending Assessment/Plan 1. chest pain, atypical, most consistent with musculoskeletal - CE indeterminate range x 3 2. acute on chronic likely diastolic heart failure - check echo. repeat CXR pending. Lasix was started 09/12. continue BB, ACEI, lasix. 3. hypertension - controlled 4. diabetes - per PCP 5. HLD - check lipids. check lipids, echo and start asa. continue lasix and await repeat CXR. could evaluate outpatient for further ischemic evaluation as she has multiple risk factors. Continue supportive care for now. VINITA PEÑA MD 09/13/18 1619: CONSULT Assessment/Plan Patient seen and examined. Agree with PIG FARMER's assessment and plan. Chest pain with atypical features. 2-D echo showed LVEF 10-15%. Acute on chronic systolic heart failure better compensated with diuretics. Plan for ischemic evaluation with either stress test or cardiac catheterization as an outpatient. Continue current medical regimen. Thank you for your consultation. BHASKAR WILEY APRN Sep 13, 2018 12:35 VINITA PEÑA MD Sep 13, 2018 16:19
[2018-09-13 15:49] VITALS: BP 132/75
--- NOTE | 2018-09-13 15:49 | EKG ---
[address] [address] Test Date: 2018-09-12 Test Time: 20:58:51 Pat Name: SLADE FOWLER Department: Room: [address] [place] [address] Gender: F [employer] Range Feeder: : 1960 Requested By: VINAY DE LEON Order Number: [id number] Reading MD: Ray Ramirez Measurements Intervals Loco Rate: 75 P: 27 LA: 148 QRS: 1 QRSD: 128 T: 120 QT: 458 QTc: 515 Interpretive Statements SINUS RHYTHM VENTRICULAR PREMATURE COMPLEX(ES) LEFT ATRIAL ABNORMALITY NON SPECIFIC INTRAVENTRICULAR BLOCK ABNORMAL ECG Electronically Signed On 09-21-2018 17:14:20 IRS AGENT by Ray Ramirez
--- NOTE | 2018-09-13 16:14 | CARD ---
MR#: [id number] Date of Study: 09/13/2018 Ordering Physician: BHASKAR WILEY, Referring Physician: Aminta DUNAWAY: Mago Childs JAMESON APPROVED REPORT EXAM: Two-dimensional and M-mode echocardiogram with Doppler and color Doppler. Other Information Quality : Good INDICATION Chest Pain 2D DIMENSIONS RVDd3.1 (2.9-3.5cm)Left Atrium(2D)3.7 (1.6-4.0cm) IVSd0.9 (0.7-1.1cm)Aortic Root(2D)2.8 (2.0-3.7cm) LVDd4.3 (3.9-5.9cm)LVOT Diameter2.1 (1.8-2.4cm) PWd0.9 (0.7-1.1cm)LVDs4.0 (2.5-4.0cm) FS (%) 22.3 %SV38.0 ml LVEF(%)15.0 (>50%) Aortic Valve AoV Peak Erickson.212.9cm/sAoV VTI37.1cm AO Peak GR.18.1mmHgLVOT Peak Erickson.133.1cm/s LVOT VTI 23.16cmAO Mean GR.11mmHg RUI (VMAX)2.29bp1AOA (VTI)2.14cm2 Mitral Valve MV E Wqixxxfs31.7cm/sMV DECEL GBNU28cc MV A Jbdiiozb516.9cm/sE/A Ratio0.6 Tricuspid Valve TR P. Jaroyvxl515kn/sRAP TPTITBNJ2apAe TR Peak Gr.74vkSoQFFI29epXt Pulmonary Vein S1 Tvbnbcdi54.7cm/sD2 Ajumzyph04.8cm/s LEFT VENTRICLE The left ventricle is normal size. There is normal left ventricular wall thickness. The left ventricl e systolic function is severely impaired. The Ejection Fraction is 10-15%. There is severe global hyp okinesis of the left ventricle. RIGHT VENTRICLE The right ventricle is normal size. The right ventricular systolic function is normal. ATRIA The left atrium size is normal. The right atrium size is normal. The interatrial septum is intact wit h no evidence for an atrial septal defect or patent foramen ovale as noted on 2-D or Doppler imaging. AORTIC VALVE The aortic valve is calcified but opens well. Doppler and Color Flow revealed trace aortic regurgitat ion. There is no significant aortic valvular stenosis. MITRAL VALVE The mitral valve is calcified but opens well. Mitral annular calcification is mild. There is no evide nce of mitral valve prolapse. There is no mitral valve stenosis. Doppler and Color-flow revealed mild mitral regurgitation. TRICUSPID VALVE The tricuspid valve is normal in structure and function. Doppler and Color Flow revealed trace tricus pid regurgitation. The PA pressure was estimated at 26 mmHg. There is no tricuspid valve stenosis. PULMONIC VALVE The pulmonic valve is not well visualized. Doppler and Color Flow revealed no pulmonic valvular regur gitation. There is no pulmonic valvular stenosis. GREAT VESSELS The aortic root is normal in size. The ascending aorta is normal in size. The IVC is normal in size a nd collapses >50% with inspiration. PERICARDIAL EFFUSION There is no evidence of significant pericardial effusion. Critical Notification Critical Value: No <Conclusion> The left ventricle systolic function is severely impaired. The Ejection Fraction is 10-15%. Mild mitral regurgitation. Trace tricuspid regurgitation. The PA pressure was estimated at 26 mmHg. There is no evidence of significant pericardial effusion. Signed by : Ray Ramirez, Electronically Approved : 09/13/2018 16:12:44
--- NOTE | 2018-09-13 17:39 | PN ---
DATE: 09/11/2018 PSYCHIATRIC PROGRESS NOTE This note covers elements, not covered in my initial note 09/11/2018. SUBJECTIVE: The patient slept 6-3/4 hours previous night. Most communication is nonverbal on the white board, hard of hearing, otherwise, pleasant, smiling. No clear hallucination, suicidal or homicidal ideation. LABORATORY DATA: Reviewed. IMPRESSION: Unchanged from initial note. PLAN: No change from initial note. KAITLIN DREW MD DR: STEFAN/satya JOB#: [id number] / [id number]
--- NOTE | 2018-09-13 18:45 | PN ---
DATE: 09/12/2018 This is a late entry 09/12/2018 covers elements not covered in my initial note. SUBJECTIVE: I met with the patient in the evening. The patient slept 6-3/4 hours previous night. She has been pleasant, compliant and calm. Communication is nonverbal and through the white board, unable to speak and hear. REVIEW OF SYSTEMS: No CV, , GI system symptoms on review. MENTAL STATUS EXAM: Oriented to herself, situations. Speech as above. Abstraction fair, computation impaired, language function intact, attention span short. Mood and affect somewhat withdrawn, but pleasant, smiling as I met with her. LABORATORY DATA: Reviewed. IMPRESSION: Schizoaffective disorder, bipolar type, mixed with psychotic features versus bipolar 1 disorder, mixed with psychotic features, in partial remission. Valproic acid level therapeutic at 71. PLAN: Continue psychotropics from initial note and transition home in the next couple of days. MAN Vanesa DREW MD DR: STEFAN/satya JOB#: [id number] / [id number]
[2018-09-13] MEDS: traZODone 100 MG TABLET. PO SCH (20:13)
[2018-09-13] MEDS: POTASSIUM CHLORIDE 20 MEQ TABLET.ER. PO SCH (20:13)
[2018-09-13] MEDS: INSULIN GLARGINE 300 UNITS/3 ML INSULN.PEN. SQ SCH (20:15)
--- NOTE | 2018-09-13 22:25 | PDOC ---
Exam Note: Johnnie Note: Please also refer to the separate dictated note~for this date of service dictated separately.~Patient seen individually. Discussed the patient with Nursing staff reviewed the chart.~Reviewed interim history and current functioning. Reviewed vital signs,~Labs/ Radiology~and current medications noted below. Continue current treatment with the changes noted in the dictated addendum note Assessment: Vital Signs: Vital Signs Date Time Temp Pulse Resp B/P (MAP) Pulse Ox O2 Delivery O2 Flow Rate FiO2 09/13/18 17:19 92 132/75 09/13/18 15:49 97.1 20 97 09/13/18 05:46 Room Air I&O Intake and Output 09/13/18 07:01 Intake Total 1480 ml Balance 1480 ml Intake Oral 1480 ml Labs: Laboratory Tests Test 09/12/18 23:35 09/13/18 02:26 09/13/18 07:17 09/13/18 11:28 Troponin I Quantitative 0.058 ng/mL (0-0.055) H 0.054 ng/mL (0-0.055) White Blood Count 4.6 x10^3/uL (4.0-11.0) # Red Blood Count 3.54 x10^6/uL (3.50-5.40) Hemoglobin 11.3 g/dL (12.0-15.5) L Hematocrit 34.1 % (36.0-47.0) L Mean Corpuscular Volume 96 fL (79-100) Mean Corpuscular Hemoglobin 32 pg (25-35) Mean Corpuscular Hemoglobin Concent 33 g/dL (31-37) Red Cell Distribution Width 18.1 % (11.5-14.5) H Platelet Count 146 x10^3/uL (140-400) Sodium Level 141 mmol/L (136-145) Potassium Level 3.5 mmol/L (3.5-5.1) Chloride Level 104 mmol/L (98-107) Carbon Dioxide Level 32 mmol/L (21-32) Anion Gap 5 (6-14) L Blood Urea Nitrogen 14 mg/dL (7-20) Creatinine 1.0 mg/dL (0.6-1.0) Estimated GFR (Cockcroft-Gault) 56.7 BUN/Creatinine Ratio 14 (6-20) Glucose Level 97 mg/dL (70-99) Calcium Level 8.6 mg/dL (8.5-10.1) Total Bilirubin 0.3 mg/dL (0.2-1.0) Aspartate Amino Transferase (AST) 15 U/L (15-37) Alanine Aminotransferase (ALT) 12 U/L (14-59) L Alkaline Phosphatase 70 U/L (46-116) Total Protein 5.9 g/dL (6.4-8.2) L Albumin 2.2 g/dL (3.4-5.0) L Albumin/Globulin Ratio 0.6 (1.0-1.7) L Glucose (Fingerstick) 116 mg/dL (70-99) H 108 mg/dL (70-99) H Test 09/13/18 16:35 09/13/18 19:08 Glucose (Fingerstick) 130 mg/dL (70-99) H 201 mg/dL (70-99) H Current Medications: Meds: Current Medications Acetaminophen (Tylenol) 650 mg PRN Q6HRS PRN PO PAIN / TEMP Last administered on 09/12/18at 02:17; Start 08/11/18 at 21:00 Multi-Ingredient Ointment (Analgesic [place]) 1 yaima PRN QID PRN TP MUSCLE PAIN; Start 08/11/18 at 21:00 Al Hydroxide/Mg Hydroxide (Mylanta Plus Xs) 15 ml PRN AFTMEALHC PRN PO DYSPEPSIA; Start 08/11/18 at 21:00 Magnesium Hydroxide (Milk Of Magnesia) 2,400 mg PRN QHS PRN PO CONSTIPATION; Start 08/11/18 at 21:00 Alprazolam (Xanax) 0.5 mg PRN Q6HRS PRN PO ANXIETY / AGITATION Last administered on 08/21/18at 20:06; Start 08/11/18 at 22:30 Divalproex Sodium (Depakote Sprinkles) 250 mg BIDWMEALS PO Last administered on 08/13/18at 18:08; Start 08/12/18 at 08:00; Stop 08/13/18 at 20:26; Status DC Duloxetine HCl (Cymbalta) 60 mg BIDWMEALS PO Last administered on 08/13/18at 18 :08; Start 08/12/18 at 08:00; Stop 08/13/18 at 20:26; Status DC Risperidone (RisperDAL) 2 mg BIDWMEALS PO Last administered on 08/14/18at 17:45 ; Start 08/12/18 at 08:00; Stop 08/14/18 at 18:45; Status DC Trazodone HCl (Desyrel) 100 mg HS PO Last administered on 09/13/18 20:13; Start 08/11/18 at 22:30 Ascorbic Acid (Vitamin C) 500 mg BIDWMEALS PO Last administered on 09/13/18 17 :19; Start 08/12/18 at 08:00 Calcium Carbonate/ Glycine (Tums) 500 mg PRN Q6HRS PRN PO INDIGESTION; Start 08/11/18 at 22:15 Vitamin D (Vitamin D3) 2,000 unit DAILY PO Last administered on 09/13/18 09:13 ; Start 08/12/18 at 09:00 Diclofenac Sodium (Voltaren) 1 yaima QID TP Last administered on 09/13/18 20:14 ; Start 08/12/18 at 09:00 Guaifenesin (Mucinex Er) 600 mg BIDWMEALS PO Last administered on 09/13/18 17: 19; Start 08/12/18 at 08:00 Acetaminophen/ Hydrocodone Bitart (Lortab 5/325) 1 tab PRN Q6HRS PRN PO PAIN Last administered on 09/08/18 17:32; Start 08/11/18 at 22:15 Levothyroxine Sodium (Synthroid) 100 mcg DAILY06 PO Last administered on 05:56; Start 08/12/18 at 06:00 Lisinopril (Prinivil) 10 mg DAILY PO Last administered on 09/13/18 09:16; Start 08/12/18 at 09:00 Nitroglycerin (Nitrostat) 0.4 mg PRN Q5MIN PRN SL CHEST PAIN; Start 08/11/18 at 22:15 Nystatin (Nystop) 1 yaima BID TP Last administered on 09/13/18 20:14; Start at 09:00 Allopurinol (Zyloprim) 100 mg DAILY PO Last administered on 09/13/18 09:12; Start 08/12/18 at 09:00 Carvedilol (Coreg) 12.5 mg BIDWMEALS PO Last administered on 09/03/18 08:42; Start 08/12/18 at 08:00; Stop 09/04/18 at 11:25; Status DC Folic Acid (Folic Acid) 1 mg DAILY PO Last administered on 09/13/18 09:13; Start 08/12/18 at 09:00 Furosemide (Lasix) 40 mg DAILY PO Last administered on 09/13/18 09:12; Start 08/12/18 at 09:00; Stop 09/13/18 at 17:08; Status DC Insulin Human Lispro (HumaLOG) 5 units TIDWMEALS SQ Last administered on 17:21; Start 08/12/18 at 08:00 Insulin Glargine (Lantus) 10 units QHS SQ Last administered on 09/13/18 20:15 ; Start 08/11/18 at 23:00 Loperamide HCl (Imodium) 2 mg PRN Q6HRS PRN PO DIARRHEA; Start 08/11/18 at 22: 45 Non-Formulary Medication (Magnesium Hydroxide (Milk Of Magnesia)) 2,400 mg PRN DAILY PRN PO CONSTIPATION; Start 08/11/18 at 22:15; Status UNV Metformin HCl (Glucophage) 1,000 mg BIDWMEALS PO Last administered on 17:19; Start 08/12/18 at 08:00 Methotrexate (Rheumatrex) 15 mg WEEKLY PO Last administered on 09/08/18 08:16 ; Start 08/18/18 at 09:00 Multivitamins/ Calcium (Thera-M Plus) 1 tab DAILY PO Last administered on 09:14; Start 08/12/18 at 09:00 Glucose (Insta-Glucose) 15 gm PRN Q15MIN PRN PO LOW BLOOD SUGAR; Start at 08:15 Divalproex Sodium (Depakote Sprinkles) 500 mg BIDWMEALS PO ; Start 08/13/18 at 20:27; Stop 08/13/18 at 20:36; Status DC Duloxetine HCl (Cymbalta) 60 mg DAILY PO Last administered on 09/13/18 09:14; Start 08/14/18 at 09:00 Divalproex Sodium (Depakote Sprinkles) 500 mg BIDWMEALS PO Last administered on 09/13/18at 17:19; Start 08/14/18 at 08:00 Risperidone (RisperDAL) 1.5 mg DAILY PO ; Start 08/14/18 at 19:00; Stop at 19:00; Status DC Risperidone (RisperDAL) 2 mg HS PO Last administered on 08/16/18at 18:51; Start 08/14/18 at 21:00; Stop 08/17/18 at 18:30; Status DC Risperidone (RisperDAL) 1.5 mg HS PO ; Start 08/18/18 at 21:00; Stop 08/18/18 at 21:00; Status DC Risperidone (RisperDAL) 1.5 mg DAILY PO Last administered on 08/17/18at 08:08; Start 08/15/18 at 09:00; Stop 08/17/18 at 18:30; Status DC Amantadine HCl (Symmetrel) 100 mg DAILY PO Last administered on 08/23/18at 08:00 ; Start 08/17/18 at 09:00; Stop 08/23/18 at 21:37; Status DC Risperidone (RisperDAL) 1.5 mg BID PO Last administered on 08/19/18at 08:15; Start 08/17/18 at 21:00; Stop 08/19/18 at 15:58; Status DC Risperidone (RisperDAL) 1 mg BID PO Last administered on 08/22/18at 11:33; Start 08/19/18 at 21:00; Stop 08/22/18 at 17:30; Status DC Risperidone (RisperDAL) 1 mg QHS PO Last administered on 08/24/18at 20:41; Start 08/22/18 at 21:00; Stop 08/25/18 at 18:41; Status DC Risperidone (RisperDAL) 0.5 mg DAILY PO Last administered on 08/25/18at 11:14; Start 08/23/18 at 09:00; Stop 08/25/18 at 09:00; Status DC Amantadine HCl (Symmetrel) 100 mg BID PO Last administered on 09/13/18at 20:13; Start 08/24/18 at 09:00 Risperidone (RisperDAL) 1.5 mg BID PO Last administered on 09/13/18 20:13; Start 08/26/18 at 09:00 Risperidone (RisperDAL) 2 mg HS PO Last administered on 08/25/18 20:03; Start 08/25/18 at 21:00; Stop 08/25/18 at 21:01; Status DC Trazodone HCl (Desyrel) 100 mg PRN QHS PRN PO INSOMNIA Last administered on 08/31 02:29; Start 08/30/18 at 18:45 Potassium Chloride (Klor-Con) 20 meq TID PO Last administered on 09/03/18 14: 25; Start 08/31/18 at 21:00; Stop 09/03/18 at 17:14; Status DC Doxycycline Hyclate (Vibra-Tab) 100 mg BID PO Last administered on 09/13/18 20 :13; Start 09/03/18 at 21:00; Stop 09/13/18 at 20:59; Status DC Lactobacillus Rhamnosus (Culturelle) 1 cap BID PO Last administered on 20:13; Start 09/03/18 at 21:00 Carvedilol (Coreg) 6.25 mg BIDWMEALS PO Last administered on 09/13/18 17:19; Start 09/04/18 at 17:00 Aspirin (Aspirin Enteric Coated) 81 mg DAILYWBKFT PO ; Start 09/14/18 at 08:00 Furosemide (Lasix) 40 mg BID PO Last administered on 09/13/18 20:13; Start at 21:00 Potassium Chloride (Klor-Con) 20 meq BID PO Last administered on 09/13/18 20: 13; Start 09/13/18 at 21:00 Active Scripts Active Reported Xanax (Alprazolam) 0.5 Mg Tablet 0.5 Mg PO PRN Q6HRS PRN Hydrocodone-Apap 5-325 (Hydrocodone Bit/Acetaminophen) 1 Each Tablet 1 Tab PO PRN Q6HRS PRN Voltaren (Diclofenac Sodium) 100 Gm Gel..gram. 4 Gm TP QID Nystatin 15 Gm Powder 1 Yaima TP BID Tums (Calcium Carbonate) 200 Mg Tab.chew 2 Tab PO PRN Q6HRS PRN Nitrostat (Nitroglycerin) 0.4 Mg Tab.subl 0.4 Mg SL PRN Q5MIN PRN Milk Of Magnesia (Magnesium Hydroxide) 2,400 Mg/10 Ml Oral.susp 2,400 Mg PO PRN DAILY PRN Loperamide (Loperamide Hcl) 2 Mg Tablet 2 Mg PO PRN Q6HRS PRN Vitamin C (Ascorbic Acid) 500 Mg Tablet 500 Mg PO BIDWMEALS Risperdal (Risperidone) 2 Mg Tablet 2 Mg PO BIDWMEALS Mucinex (Guaifenesin) 600 Mg Tablet.er 600 Mg PO BIDWMEALS Metformin Hcl 1,000 Mg Tablet 1,000 Mg PO BIDWMEALS Cymbalta (Duloxetine Hcl) 60 Mg Capsule.dr 60 Mg PO BIDWMEALS Depakote Sprinkle (Divalproex Sodium) 125 Mg Cap.sprink 250 Mg PO BIDWMEALS Coreg (Carvedilol) 12.5 Mg Tablet 12.5 Mg PO BIDWMEALS Vitamin D3 (Cholecalciferol (Vitamin D3)) 1,000 Unit Tablet 2,000 Unit PO DAILY Trazodone Hcl 100 Mg Tablet 100 Mg PO HS Multivitamins (Multivitamin) 1 Each Tablet 1 Tab PO DAILY Methotrexate (Methotrexate Sodium) 2.5 Mg Tablet 15 Mg PO WEEKLY Lisinopril 10 Mg Tablet 10 Mg PO DAILY Levothyroxine Sodium 100 Mcg Tablet 100 Mcg PO DAILYAC Lasix (Furosemide) 40 Mg Tablet 40 Mg PO DAILY Folic Acid 1 Mg Tablet 1 Mg PO DAILY Allopurinol 100 Mg Tablet 100 Mg PO DAILY Novolog (Insulin Aspart) 100 Unit/1 Ml Vial 5 Unit SQ TIDWMEALS Levemir (Insulin Detemir) 100 Unit/1 Ml Vial 10 Unit SQ HS I have reviewed the current psychotropics carefully including drug interactions. Risk benefit ratio favors no change other than as noted in my dictated progress note. Diagnosis: Problems: (1) Anxiety disorder (2) Major depressive disorder, recurrent episode (3) Impulse control disorder (4) Dementia in Alzheimer's disease with delusions (5) Dementia in Alzheimer's disease with depression (6) Dementia, vascular, with delusions (7) Dementia, vascular, with depression KAITLIN DREW MD Sep 13, 2018 22:25
[2018-09-14] MEDS: LEVOTHYROXINE 100 MCG TABLET PO SCH (05:22)
[2018-09-14 06:25] VITALS: BP 102/76
--- NOTE | 2018-09-14 07:53 | RAD ---
Portable chest, 09/13/2018: HISTORY: Cough, shortness of breath Comparison is made to a study from 09/10/2018. The heart is mildly enlarged. There is calcific plaquing the aorta. Vascular structures at the [place] are mildly prominent. No pulmonary infiltrate is seen. There is no evidence of pleural fluid. IMPRESSION: 1. Cardiomegaly. 2. No acute infiltrates with no significant change since 09/10/2018. Electronically signed by: Rene Perry MD (09/14/2018 7:48 AM) [facility]
[2018-09-14] MEDS: INSULIN LISPRO 300 UNITS/3 ML INSULN.PEN. SQ SCH ×3 (07:54→17:34)
[2018-09-14] MEDS: risperiDONE 0.5 MG TABLET. PO SCH ×2 (08:27→21:33)
[2018-09-14] MEDS: DIVALPROEX 125 MG CAP.SPRINK PO SCH ×2 (08:27→17:29)
[2018-09-14] MEDS: AMANTADINE HCL 100 MG CAPSULE PO SCH ×2 (08:27→21:35)
[2018-09-14] MEDS: LISINOPRIL 10 MG TABLET PO SCH (08:27)
[2018-09-14] MEDS: MULTIVITAMIN with MINERAL TABLET. PO SCH (08:27)
[2018-09-14] MEDS: CARVEDILOL 6.25 MG TABLET PO SCH ×2 (08:28→17:29)
[2018-09-14] MEDS: CHOLECALCIFEROL (VITAMIN D3) 1,000 UNIT TABLET PO SCH (08:28)
[2018-09-14] MEDS: FOLIC ACID 1 MG TABLET PO SCH (08:28)
[2018-09-14] MEDS: LACTOBACILLUS RHAMNOSUS GG 1 CAPSULE. PO SCH ×2 (08:28→21:33)
[2018-09-14] MEDS: FUROSEMIDE 40 MG TABLET PO SCH ×2 (08:28→21:32)
[2018-09-14] MEDS: metFORMIN 500 MG TABLET PO SCH ×2 (08:28→17:29)
[2018-09-14] MEDS: DULoxetine HCL 60 MG CAPSULE.DR PO SCH (08:29)
[2018-09-14] MEDS: POTASSIUM CHLORIDE 20 MEQ TABLET.ER. PO SCH ×2 (08:29→21:32)
[2018-09-14] MEDS: ALLOPURINOL 100 MG TABLET. PO SCH (08:29)
[2018-09-14] MEDS: ASPIRIN ENTERIC COATED 81 MG TABLET.DR. PO SCH (08:32)
[2018-09-14] MEDS: NYSTATIN TOPICAL POWDER 15GM BOTTLE. TP SCH ×2 (08:32→21:33)
[2018-09-14] MEDS: DICLOFENAC SODIUM 1% TOPICAL GEL 100GM TUBE. TP SCH ×5 (08:32→21:33)
[2018-09-14] MEDS: ASCORBIC ACID 500 MG TABLET PO SCH ×2 (08:32→17:29)
--- NOTE | 2018-09-14 13:20 | PDOC ---
PROGRESS NOTES Diagnosis Problem Problems Medical Problems: (1) Schizo-affective schizophrenia Status: Acute Assessment Problems Medical Problems: (1) Schizo-affective schizophrenia Status: Acute 1. mild acute on chronic systolic heart failure - continue current medications. EF 15%. ? if this is new or previously known. Request records. If not previously known would need MPI vs cath in the near future as an outpatient. 2. atypical chest pain with Km remaining in the indeterminate range. 3. HTN - continue current medications 4. HLD - continue meds, await lipids 5. DM - per PCP Subjective sleepy, no visible distress, no new complaints Objective Vital Signs Date Time Temp Pulse Resp B/P (MAP) Pulse Ox O2 Delivery O2 Flow Rate FiO2 09/14/18 08:28 65 102/76 09/14/18 06:25 96.9 20 97 09/13/18 05:46 Room Air Intake and Output 09/14/18 07:01 Intake Total 780 ml Balance 780 ml Intake Oral 780 ml # Voids 1 Abdomen: Normal bowel sounds, Soft, No tenderness Heart: Normal S1, Normal S2, Other (no gallops, clicks or rubs) Extremities: No cyanosis, No edema General: Alert, Cooperative, No acute distress HEENT: Atraumatic, Mucous membr. moist/pink Lungs: Other (decreased bases without crackles, rhonchi or wheezing) Neuro: Strength at 5/5 X4 ext Psych/Mental Status: Mood NL Review of Relevant I have reviewed the following items sarmad (where applicable) has been applied. Labs Laboratory Tests Test 09/12/18 16:37 09/12/18 19:00 09/12/18 19:17 09/12/18 20:45 Glucose (Fingerstick) 103 mg/dL (70-99) 101 mg/dL (70-99) [id number]-Type Natriuretic Peptide 18648 pg/mL (0-124) Creatine Kinase 33 U/L (26-192) Troponin I Quantitative 0.050 ng/mL (0-0.055) Test 09/12/18 23:35 09/13/18 02:26 09/13/18 07:17 09/13/18 11:28 Troponin I Quantitative 0.058 ng/mL (0-0.055) 0.054 ng/mL (0-0.055) White Blood Count 4.6 x10^3/uL (4.0-11.0) Red Blood Count 3.54 x10^6/uL (3.50-5.40) Hemoglobin 11.3 g/dL (12.0-15.5) Hematocrit 34.1 % (36.0-47.0) Mean Corpuscular Volume 96 fL (79-100) Mean Corpuscular Hemoglobin 32 pg (25-35) Mean Corpuscular Hemoglobin Concent 33 g/dL (31-37) Red Cell Distribution Width 18.1 % (11.5-14.5) Platelet Count 146 x10^3/uL (140-400) Sodium Level 141 mmol/L (136-145) Potassium Level 3.5 mmol/L (3.5-5.1) Chloride Level 104 mmol/L (98-107) Carbon Dioxide Level 32 mmol/L (21-32) Anion Gap 5 (6-14) Blood Urea Nitrogen 14 mg/dL (7-20) Creatinine 1.0 mg/dL (0.6-1.0) Estimated GFR (Cockcroft-Gault) 56.7 BUN/Creatinine Ratio 14 (6-20) Glucose Level 97 mg/dL (70-99) Calcium Level 8.6 mg/dL (8.5-10.1) Total Bilirubin 0.3 mg/dL (0.2-1.0) Aspartate Amino Transf (AST/SGOT) 15 U/L (15-37) Alanine Aminotransferase (ALT/SGPT) 12 U/L (14-59) Alkaline Phosphatase 70 U/L (46-116) Total Protein 5.9 g/dL (6.4-8.2) Albumin 2.2 g/dL (3.4-5.0) Albumin/Globulin Ratio 0.6 (1.0-1.7) Glucose (Fingerstick) 116 mg/dL (70-99) 108 mg/dL (70-99) Test 09/13/18 16:35 09/13/18 19:08 09/14/18 07:45 09/14/18 11:25 Glucose (Fingerstick) 130 mg/dL (70-99) 201 mg/dL (70-99) 87 mg/dL (70-99) 153 mg/dL (70-99) Medications Current Medications Acetaminophen (Tylenol) 650 mg PRN Q6HRS PRN PO PAIN / TEMP Last administered on 09/12/18 02:17; Start 08/11/18 at 21:00 Multi-Ingredient Ointment (Analgesic [place]) 1 yaima PRN QID PRN TP MUSCLE PAIN; Start 08/11/18 at 21:00 Al Hydroxide/Mg Hydroxide (Mylanta Plus Xs) 15 ml PRN AFTMEALHC PRN PO DYSPEPSIA; Start 08/11/18 at 21:00 Magnesium Hydroxide (Milk Of Magnesia) 2,400 mg PRN QHS PRN PO CONSTIPATION; Start 08/11/18 at 21:00 Alprazolam (Xanax) 0.5 mg PRN Q6HRS PRN PO ANXIETY / AGITATION Last administered on 08/21/18at 20:06; Start 08/11/18 at 22:30 Divalproex Sodium (Depakote Sprinkles) 250 mg BIDWMEALS PO Last administered on 08/13/18at 18:08; Start 08/12/18 at 08:00; Stop 08/13/18 at 20:26; Status DC Duloxetine HCl (Cymbalta) 60 mg BIDWMEALS PO Last administered on 08/13/18at 18 :08; Start 08/12/18 at 08:00; Stop 08/13/18 at 20:26; Status DC Risperidone (RisperDAL) 2 mg BIDWMEALS PO Last administered on 08/14/18at 17:45 ; Start 08/12/18 at 08:00; Stop 08/14/18 at 18:45; Status DC Trazodone HCl (Desyrel) 100 mg HS PO Last administered on 09/13/18at 20:13; Start 08/11/18 at 22:30 Ascorbic Acid (Vitamin C) 500 mg BIDWMEALS PO Last administered on 09/14/18 08 :32; Start 08/12/18 at 08:00 Calcium Carbonate/ Glycine (Tums) 500 mg PRN Q6HRS PRN PO INDIGESTION; Start 08/11/18 at 22:15 Vitamin D (Vitamin D3) 2,000 unit DAILY PO Last administered on 09/14/18 08:28 ; Start 08/12/18 at 09:00 Diclofenac Sodium (Voltaren) 1 yaima QID TP Last administered on 09/14/18 12:17 ; Start 08/12/18 at 09:00 Guaifenesin (Mucinex Er) 600 mg BIDWMEALS PO Last administered on 09/14/18 08: 28; Start 08/12/18 at 08:00 Acetaminophen/ Hydrocodone Bitart (Lortab 5/325) 1 tab PRN Q6HRS PRN PO PAIN Last administered on 09/08/18 17:32; Start 08/11/18 at 22:15 Levothyroxine Sodium (Synthroid) 100 mcg DAILY06 PO Last administered on 05:22; Start 08/12/18 at 06:00 Lisinopril (Prinivil) 10 mg DAILY PO Last administered on 09/14/18 08:27; Start 08/12/18 at 09:00 Nitroglycerin (Nitrostat) 0.4 mg PRN Q5MIN PRN SL CHEST PAIN; Start 08/11/18 at 22:15 Nystatin (Nystop) 1 yaima BID TP Last administered on 09/14/18 08:32; Start at 09:00 Allopurinol (Zyloprim) 100 mg DAILY PO Last administered on 09/14/18 08:29; Start 08/12/18 at 09:00 Carvedilol (Coreg) 12.5 mg BIDWMEALS PO Last administered on 09/03/18 08:42; Start 08/12/18 at 08:00; Stop 09/04/18 at 11:25; Status DC Folic Acid (Folic Acid) 1 mg DAILY PO Last administered on 09/14/18 08:28; Start 08/12/18 at 09:00 Furosemide (Lasix) 40 mg DAILY PO Last administered on 09/13/18 09:12; Start 08/12/18 at 09:00; Stop 09/13/18 at 17:08; Status DC Insulin Human Lispro (HumaLOG) 5 units TIDWMEALS SQ Last administered on 12:18; Start 08/12/18 at 08:00 Insulin Glargine (Lantus) 10 units QHS SQ Last administered on 09/13/18 20:15 ; Start 08/11/18 at 23:00 Loperamide HCl (Imodium) 2 mg PRN Q6HRS PRN PO DIARRHEA; Start 08/11/18 at 22: 45 Non-Formulary Medication (Magnesium Hydroxide (Milk Of Magnesia)) 2,400 mg PRN DAILY PRN PO CONSTIPATION; Start 08/11/18 at 22:15; Status UNV Metformin HCl (Glucophage) 1,000 mg BIDWMEALS PO Last administered on 08:28; Start 08/12/18 at 08:00 Methotrexate (Rheumatrex) 15 mg WEEKLY PO Last administered on 09/08/18 08:16 ; Start 08/18/18 at 09:00 Multivitamins/ Calcium (Thera-M Plus) 1 tab DAILY PO Last administered on 08:27; Start 08/12/18 at 09:00 Glucose (Insta-Glucose) 15 gm PRN Q15MIN PRN PO LOW BLOOD SUGAR; Start at 08:15 Divalproex Sodium (Depakote Sprinkles) 500 mg BIDWMEALS PO ; Start 08/13/18 at 20:27; Stop 08/13/18 at 20:36; Status DC Duloxetine HCl (Cymbalta) 60 mg DAILY PO Last administered on 09/14/18 08:29; Start 08/14/18 at 09:00 Divalproex Sodium (Depakote Sprinkles) 500 mg BIDWMEALS PO Last administered on 09/14/18 08:27; Start 08/14/18 at 08:00 Risperidone (RisperDAL) 1.5 mg DAILY PO ; Start 08/14/18 at 19:00; Stop at 19:00; Status DC Risperidone (RisperDAL) 2 mg HS PO Last administered on 08/16/18at 18:51; Start 08/14/18 at 21:00; Stop 08/17/18 at 18:30; Status DC Risperidone (RisperDAL) 1.5 mg HS PO ; Start 08/18/18 at 21:00; Stop 08/18/18 at 21:00; Status DC Risperidone (RisperDAL) 1.5 mg DAILY PO Last administered on 08/17/18at 08:08; Start 08/15/18 at 09:00; Stop 12/26/18 at 18:30; Status DC Amantadine HCl (Symmetrel) 100 mg DAILY PO Last administered on 08/23/18 08:00 ; Start 08/17/18 at 09:00; Stop 08/23/18 at 21:37; Status DC Risperidone (RisperDAL) 1.5 mg BID PO Last administered on 08/19/18at 08:15; Start 08/17/18 at 21:00; Stop 08/19/18 at 15:58; Status DC Risperidone (RisperDAL) 1 mg BID PO Last administered on 08/22/18at 11:33; Start 08/19/18 at 21:00; Stop 08/22/18 at 17:30; Status DC Risperidone (RisperDAL) 1 mg QHS PO Last administered on 08/24/18 20:41; Start 08/22/18 at 21:00; Stop 08/25/18 at 18:41; Status DC Risperidone (RisperDAL) 0.5 mg DAILY PO Last administered on 08/25/18 11:14; Start 08/23/18 at 09:00; Stop 08/25/18 at 09:00; Status DC Amantadine HCl (Symmetrel) 100 mg BID PO Last administered on 09/14/18 08:27; Start 08/24/18 at 09:00 Risperidone (RisperDAL) 1.5 mg BID PO Last administered on 09/14/18 08:27; Start 08/26/18 at 09:00 Risperidone (RisperDAL) 2 mg HS PO Last administered on 08/25/18 20:03; Start 08/25/18 at 21:00; Stop 08/25/18 at 21:01; Status DC Trazodone HCl (Desyrel) 100 mg PRN QHS PRN PO INSOMNIA Last administered on 08/31 02:29; Start 08/30/18 at 18:45 Potassium Chloride (Klor-Con) 20 meq TID PO Last administered on 09/03/18 14: 25; Start 08/31/18 at 21:00; Stop 09/03/18 at 17:14; Status DC Doxycycline Hyclate (Vibra-Tab) 100 mg BID PO Last administered on 09/13/18 20 :13; Start 09/03/18 at 21:00; Stop 09/13/18 at 20:59; Status DC Lactobacillus Rhamnosus (Culturelle) 1 cap BID PO Last administered on 08:28; Start 09/03/18 at 21:00 Carvedilol (Coreg) 6.25 mg BIDWMEALS PO Last administered on 09/14/18 08:28; Start 09/04/18 at 17:00 Aspirin (Aspirin Enteric Coated) 81 mg DAILYWBKFT PO Last administered on 08:32; Start 09/14/18 at 08:00 Furosemide (Lasix) 40 mg BID PO Last administered on 09/14/18 08:28; Start at 21:00 Potassium Chloride (Klor-Con) 20 meq BID PO Last administered on 09/14/18 08: 29; Start 09/13/18 at 21:00 Active Scripts Active Reported Xanax (Alprazolam) 0.5 Mg Tablet 0.5 Mg PO PRN Q6HRS PRN Hydrocodone-Apap 5-325 (Hydrocodone Bit/Acetaminophen) 1 Each Tablet 1 Tab PO PRN Q6HRS PRN Voltaren (Diclofenac Sodium) 100 Gm Gel..gram. 4 Gm TP QID Nystatin 15 Gm Powder 1 Yaima TP BID Tums (Calcium Carbonate) 200 Mg Tab.chew 2 Tab PO PRN Q6HRS PRN Nitrostat (Nitroglycerin) 0.4 Mg Tab.subl 0.4 Mg SL PRN Q5MIN PRN Milk Of Magnesia (Magnesium Hydroxide) 2,400 Mg/10 Ml Oral.susp 2,400 Mg PO PRN DAILY PRN Loperamide (Loperamide Hcl) 2 Mg Tablet 2 Mg PO PRN Q6HRS PRN Vitamin C (Ascorbic Acid) 500 Mg Tablet 500 Mg PO BIDWMEALS Risperdal (Risperidone) 2 Mg Tablet 2 Mg PO BIDWMEALS Mucinex (Guaifenesin) 600 Mg Tablet.er 600 Mg PO BIDWMEALS Metformin Hcl 1,000 Mg Tablet 1,000 Mg PO BIDWMEALS Cymbalta (Duloxetine Hcl) 60 Mg Capsule.dr 60 Mg PO BIDWMEALS Depakote Sprinkle (Divalproex Sodium) 125 Mg Cap.sprink 250 Mg PO BIDWMEALS Coreg (Carvedilol) 12.5 Mg Tablet 12.5 Mg PO BIDWMEALS Vitamin D3 (Cholecalciferol (Vitamin D3)) 1,000 Unit Tablet 2,000 Unit PO DAILY Trazodone Hcl 100 Mg Tablet 100 Mg PO HS Multivitamins (Multivitamin) 1 Each Tablet 1 Tab PO DAILY Methotrexate (Methotrexate Sodium) 2.5 Mg Tablet 15 Mg PO WEEKLY Lisinopril 10 Mg Tablet 10 Mg PO DAILY Levothyroxine Sodium 100 Mcg Tablet 100 Mcg PO DAILYAC Lasix (Furosemide) 40 Mg Tablet 40 Mg PO DAILY Folic Acid 1 Mg Tablet 1 Mg PO DAILY Allopurinol 100 Mg Tablet 100 Mg PO DAILY Novolog (Insulin Aspart) 100 Unit/1 Ml Vial 5 Unit SQ TIDWMEALS Levemir (Insulin Detemir) 100 Unit/1 Ml Vial 10 Unit SQ HS Vitals/I & O Vital Sign - Last 24 Hours 09/13/18 09/13/18 09/14/18 09/14/18 15:49 17:19 06:25 08:27 Temp 97.1 96.9 Pulse 92 92 65 65 Resp 20 20 B/P (MAP) 132/75 (94) 132/75 102/76 (85) 102/76 Pulse Ox 97 97 09/14/18 08:28 Pulse 65 B/P (MAP) 102/76 Intake and Output 09/13/18 09/13/18 09/14/18 15:01 23:01 07:01 Intake Total 180 ml 360 ml 240 ml Balance 180 ml 360 ml 240 ml BHASKAR WILEY [employer] O[employer]ATOR Sep 14, 2018 13:20
[2018-09-14 17:02] VITALS: BP 108/59
[2018-09-14] MEDS: traZODone 100 MG TABLET. PO SCH (21:33)
[2018-09-14] MEDS: INSULIN GLARGINE 300 UNITS/3 ML INSULN.PEN. SQ SCH (21:36)
--- NOTE | 2018-09-14 22:38 | PN ---
DATE: 09/13/2018 PSYCHIATRIC PROGRESS NOTE This late entry 09/13/2018 covers elements, not covered in my initial note. SUBJECTIVE: I met with the patient in the evening. The patient slept 7-3/4 hours previous night. She slept at 10 and early in the morning of 09/13/2018 and previous evening complained of chest pain. Dr. Abrams was consulted. EKG showed left bundle branch block. Echo has been recommended. Cardiology consult was suggestive of musculoskeletal pain, but again I will defer to Dr. Abrams and the booking manager for this. REVIEW OF SYSTEMS: Extremely hard of hearing, nonverbal, communication is the only way to communicate together with writing on the white board. She is less dismissive; however, not disruptive, aggressive. No clear hallucinations noted. No CV, , GI system symptoms today. MENTAL STATUS EXAM: Oriented to herself and situation. Speech as above. Abstraction fair, computation impaired, language function intact, attention span short. Mood and affect remain somewhat withdrawn at times, but generally reasonable. No suicidal or homicidal ideation. LABORATORY DATA: Reviewed. IMPRESSION: Bipolar 1 disorder, mixed with psychotic features; anxiety disorder, unspecified; impulse control disorder, unspecified. PLAN: No change from initial note. KAITLIN DREW MD DR: STEFAN/satya JOB#: [id number] / [id number]
--- NOTE | 2018-09-14 22:40 | PDOC ---
Exam Note: Johnnie Note: Please also refer to the separate dictated note~for this date of service dictated separately.~Patient seen individually. Discussed the patient with Nursing staff reviewed the chart.~Reviewed interim history and current functioning. Reviewed vital signs,~Labs/ Radiology~and current medications noted below. Continue current treatment with the changes noted in the dictated addendum note Assessment: Vital Signs: Vital Signs Date Time Temp Pulse Resp B/P (MAP) Pulse Ox O2 Delivery O2 Flow Rate FiO2 09/14/18 17:29 67 108/59 09/14/18 17:02 98.4 22 100 09/13/18 05:46 Room Air I&O Intake and Output 09/14/18 07:01 Intake Total 780 ml Balance 780 ml Intake Oral 780 ml # Voids 1 Labs: Laboratory Tests Test 09/14/18 07:45 09/14/18 11:25 09/14/18 17:11 09/14/18 19:21 Glucose (Fingerstick) 87 mg/dL (70-99) 153 mg/dL (70-99) H 104 mg/dL (70-99) H 163 mg/dL (70-99) H Current Medications: Meds: Current Medications Acetaminophen (Tylenol) 650 mg PRN Q6HRS PRN PO PAIN / TEMP Last administered on 09/12/18at 02:17; Start 08/11/18 at 21:00 Multi-Ingredient Ointment (Analgesic [place]) 1 yaima PRN QID PRN TP MUSCLE PAIN; Start 08/11/18 at 21:00 Al Hydroxide/Mg Hydroxide (Mylanta Plus Xs) 15 ml PRN AFTMEALHC PRN PO DYSPEPSIA; Start 08/11/18 at 21:00 Magnesium Hydroxide (Milk Of Magnesia) 2,400 mg PRN QHS PRN PO CONSTIPATION; Start 08/11/18 at 21:00 Alprazolam (Xanax) 0.5 mg PRN Q6HRS PRN PO ANXIETY / AGITATION Last administered on 08/21/18at 20:06; Start 08/11/18 at 22:30 Divalproex Sodium (Depakote Sprinkles) 250 mg BIDWMEALS PO Last administered on 08/13/18at 18:08; Start 08/12/18 at 08:00; Stop 08/13/18 at 20:26; Status DC Duloxetine HCl (Cymbalta) 60 mg BIDWMEALS PO Last administered on 08/13/18at 18 :08; Start 08/12/18 at 08:00; Stop 08/13/18 at 20:26; Status DC Risperidone (RisperDAL) 2 mg BIDWMEALS PO Last administered on 08/14/18at 17:45 ; Start 08/12/18 at 08:00; Stop 08/14/18 at 18:45; Status DC Trazodone HCl (Desyrel) 100 mg HS PO Last administered on 09/14/18 21:33; Start 08/11/18 at 22:30 Ascorbic Acid (Vitamin C) 500 mg BIDWMEALS PO Last administered on 09/14/18 17 :29; Start 08/12/18 at 08:00 Calcium Carbonate/ Glycine (Tums) 500 mg PRN Q6HRS PRN PO INDIGESTION; Start 08/11/18 at 22:15 Vitamin D (Vitamin D3) 2,000 unit DAILY PO Last administered on 09/14/18 08:28 ; Start 08/12/18 at 09:00 Diclofenac Sodium (Voltaren) 1 yaima QID TP Last administered on 09/14/18 21:33 ; Start 08/12/18 at 09:00 Guaifenesin (Mucinex Er) 600 mg BIDWMEALS PO Last administered on 09/14/18 17: 29; Start 08/12/18 at 08:00 Acetaminophen/ Hydrocodone Bitart (Lortab 5/325) 1 tab PRN Q6HRS PRN PO PAIN Last administered on 09/08/18 17:32; Start 08/11/18 at 22:15 Levothyroxine Sodium (Synthroid) 100 mcg DAILY06 PO Last administered on 05:22; Start 08/12/18 at 06:00 Lisinopril (Prinivil) 10 mg DAILY PO Last administered on 09/14/18 08:27; Start 08/12/18 at 09:00 Nitroglycerin (Nitrostat) 0.4 mg PRN Q5MIN PRN SL CHEST PAIN; Start 08/11/18 at 22:15 Nystatin (Nystop) 1 yaima BID TP Last administered on 09/14/18 21:33; Start at 09:00 Allopurinol (Zyloprim) 100 mg DAILY PO Last administered on 09/14/18 08:29; Start 08/12/18 at 09:00 Carvedilol (Coreg) 12.5 mg BIDWMEALS PO Last administered on 09/03/18 08:42; Start 08/12/18 at 08:00; Stop 09/04/18 at 11:25; Status DC Folic Acid (Folic Acid) 1 mg DAILY PO Last administered on 09/14/18 08:28; Start 08/12/18 at 09:00 Furosemide (Lasix) 40 mg DAILY PO Last administered on 09/13/18 09:12; Start 08/12/18 at 09:00; Stop 09/13/18 at 17:08; Status DC Insulin Human Lispro (HumaLOG) 5 units TIDWMEALS SQ Last administered on 17:34; Start 08/12/18 at 08:00 Insulin Glargine (Lantus) 10 units QHS SQ Last administered on 09/14/18 21:36 ; Start 08/11/18 at 23:00 Loperamide HCl (Imodium) 2 mg PRN Q6HRS PRN PO DIARRHEA; Start 08/11/18 at 22: 45 Non-Formulary Medication (Magnesium Hydroxide (Milk Of Magnesia)) 2,400 mg PRN DAILY PRN PO CONSTIPATION; Start 08/11/18 at 22:15; Status UNV Metformin HCl (Glucophage) 1,000 mg BIDWMEALS PO Last administered on 17:29; Start 08/12/18 at 08:00 Methotrexate (Rheumatrex) 15 mg WEEKLY PO Last administered on 09/08/18 08:16 ; Start 08/18/18 at 09:00 Multivitamins/ Calcium (Thera-M Plus) 1 tab DAILY PO Last administered on 08:27; Start 08/12/18 at 09:00 Glucose (Insta-Glucose) 15 gm PRN Q15MIN PRN PO LOW BLOOD SUGAR; Start at 08:15 Divalproex Sodium (Depakote Sprinkles) 500 mg BIDWMEALS PO ; Start 08/13/18 at 20:27; Stop 08/13/18 at 20:36; Status DC Duloxetine HCl (Cymbalta) 60 mg DAILY PO Last administered on 09/14/18at 08:29; Start 08/14/18 at 09:00 Divalproex Sodium (Depakote Sprinkles) 500 mg BIDWMEALS PO Last administered on 09/14/18at 17:29; Start 08/14/18 at 08:00 Risperidone (RisperDAL) 1.5 mg DAILY PO ; Start 08/14/18 at 19:00; Stop at 19:00; Status DC Risperidone (RisperDAL) 2 mg HS PO Last administered on 08/16/18at 18:51; Start 08/14/18 at 21:00; Stop 08/17/18 at 18:30; Status DC Risperidone (RisperDAL) 1.5 mg HS PO ; Start 08/18/18 at 21:00; Stop 08/18/18 at 21:00; Status DC Risperidone (RisperDAL) 1.5 mg DAILY PO Last administered on 08/17/18at 08:08; Start 08/15/18 at 09:00; Stop 08/17/18 at 18:30; Status DC Amantadine HCl (Symmetrel) 100 mg DAILY PO Last administered on 08/23/18at 08:00 ; Start 08/17/18 at 09:00; Stop 08/23/18 at 21:37; Status DC Risperidone (RisperDAL) 1.5 mg BID PO Last administered on 08/19/18at 08:15; Start 08/17/18 at 21:00; Stop 08/19/18 at 15:58; Status DC Risperidone (RisperDAL) 1 mg BID PO Last administered on 08/22/18at 11:33; Start 08/19/18 at 21:00; Stop 08/22/18 at 17:30; Status DC Risperidone (RisperDAL) 1 mg QHS PO Last administered on 08/24/18at 20:41; Start 08/22/18 at 21:00; Stop 08/25/18 at 18:41; Status DC Risperidone (RisperDAL) 0.5 mg DAILY PO Last administered on 08/25/18at 11:14; Start 08/23/18 at 09:00; Stop 08/25/18 at 09:00; Status DC Amantadine HCl (Symmetrel) 100 mg BID PO Last administered on 09/14/18 21:35; Start 08/24/18 at 09:00 Risperidone (RisperDAL) 1.5 mg BID PO Last administered on 09/14/18 21:33; Start 08/26/18 at 09:00 Risperidone (RisperDAL) 2 mg HS PO Last administered on 08/25/18 20:03; Start 08/25/18 at 21:00; Stop 08/25/18 at 21:01; Status DC Trazodone HCl (Desyrel) 100 mg PRN QHS PRN PO INSOMNIA Last administered on 08/31 02:29; Start 08/30/18 at 18:45 Potassium Chloride (Klor-Con) 20 meq TID PO Last administered on 09/03/18 14: 25; Start 08/31/18 at 21:00; Stop 09/03/18 at 17:14; Status DC Doxycycline Hyclate (Vibra-Tab) 100 mg BID PO Last administered on 09/13/18 20 :13; Start 09/03/18 at 21:00; Stop 09/13/18 at 20:59; Status DC Lactobacillus Rhamnosus (Culturelle) 1 cap BID PO Last administered on 21:33; Start 09/03/18 at 21:00 Carvedilol (Coreg) 6.25 mg BIDWMEALS PO Last administered on 09/14/18 17:29; Start 09/04/18 at 17:00 Aspirin (Aspirin Enteric Coated) 81 mg DAILYWBKFT PO Last administered on 08:32; Start 09/14/18 at 08:00 Furosemide (Lasix) 40 mg BID PO Last administered on 09/14/18 21:32; Start at 21:00 Potassium Chloride (Klor-Con) 20 meq BID PO Last administered on 09/14/18 21: 32; Start 09/13/18 at 21:00 Active Scripts Active Reported Xanax (Alprazolam) 0.5 Mg Tablet 0.5 Mg PO PRN Q6HRS PRN Hydrocodone-Apap 5-325 (Hydrocodone Bit/Acetaminophen) 1 Each Tablet 1 Tab PO PRN Q6HRS PRN Voltaren (Diclofenac Sodium) 100 Gm Gel..gram. 4 Gm TP QID Nystatin 15 Gm Powder 1 Yaima TP BID Tums (Calcium Carbonate) 200 Mg Tab.chew 2 Tab PO PRN Q6HRS PRN Nitrostat (Nitroglycerin) 0.4 Mg Tab.subl 0.4 Mg SL PRN Q5MIN PRN Milk Of Magnesia (Magnesium Hydroxide) 2,400 Mg/10 Ml Oral.susp 2,400 Mg PO PRN DAILY PRN Loperamide (Loperamide Hcl) 2 Mg Tablet 2 Mg PO PRN Q6HRS PRN Vitamin C (Ascorbic Acid) 500 Mg Tablet 500 Mg PO BIDWMEALS Risperdal (Risperidone) 2 Mg Tablet 2 Mg PO BIDWMEALS Mucinex (Guaifenesin) 600 Mg Tablet.er 600 Mg PO BIDWMEALS Metformin Hcl 1,000 Mg Tablet 1,000 Mg PO BIDWMEALS Cymbalta (Duloxetine Hcl) 60 Mg Capsule.dr 60 Mg PO BIDWMEALS Depakote Sprinkle (Divalproex Sodium) 125 Mg Cap.sprink 250 Mg PO BIDWMEALS Coreg (Carvedilol) 12.5 Mg Tablet 12.5 Mg PO BIDWMEALS Vitamin D3 (Cholecalciferol (Vitamin D3)) 1,000 Unit Tablet 2,000 Unit PO DAILY Trazodone Hcl 100 Mg Tablet 100 Mg PO HS Multivitamins (Multivitamin) 1 Each Tablet 1 Tab PO DAILY Methotrexate (Methotrexate Sodium) 2.5 Mg Tablet 15 Mg PO WEEKLY Lisinopril 10 Mg Tablet 10 Mg PO DAILY Levothyroxine Sodium 100 Mcg Tablet 100 Mcg PO DAILYAC Lasix (Furosemide) 40 Mg Tablet 40 Mg PO DAILY Folic Acid 1 Mg Tablet 1 Mg PO DAILY Allopurinol 100 Mg Tablet 100 Mg PO DAILY Novolog (Insulin Aspart) 100 Unit/1 Ml Vial 5 Unit SQ TIDWMEALS Levemir (Insulin Detemir) 100 Unit/1 Ml Vial 10 Unit SQ HS I have reviewed the current psychotropics carefully including drug interactions. Risk benefit ratio favors no change other than as noted in my dictated progress note. Diagnosis: Problems: (1) Anxiety disorder (2) Major depressive disorder, recurrent episode (3) Impulse control disorder (4) Dementia in Alzheimer's disease with delusions (5) Dementia in Alzheimer's disease with depression (6) Dementia, vascular, with delusions (7) Dementia, vascular, with depression KAITLIN DREW MD Sep 14, 2018 22:40
[2018-09-15 05:39] VITALS: BP 98/59
[2018-09-15] MEDS: LEVOTHYROXINE 100 MCG TABLET PO SCH (05:48)
[2018-09-15] MEDS: ASPIRIN ENTERIC COATED 81 MG TABLET.DR. PO SCH (08:35)
[2018-09-15] MEDS: DULoxetine HCL 60 MG CAPSULE.DR PO SCH (08:35)
[2018-09-15] MEDS: ALLOPURINOL 100 MG TABLET. PO SCH (08:35)
[2018-09-15] MEDS: LISINOPRIL 10 MG TABLET PO SCH (08:35)
[2018-09-15] MEDS: POTASSIUM CHLORIDE 20 MEQ TABLET.ER. PO SCH (08:35)
[2018-09-15] MEDS: FOLIC ACID 1 MG TABLET PO SCH (08:35)
[2018-09-15] MEDS: metFORMIN 500 MG TABLET PO SCH ×2 (08:36→16:43)
[2018-09-15] MEDS: DIVALPROEX 125 MG CAP.SPRINK PO SCH ×2 (08:36→16:43)
[2018-09-15] MEDS: MULTIVITAMIN with MINERAL TABLET. PO SCH (08:36)
[2018-09-15] MEDS: FUROSEMIDE 40 MG TABLET PO SCH (08:36)
[2018-09-15] MEDS: LACTOBACILLUS RHAMNOSUS GG 1 CAPSULE. PO SCH ×2 (08:36→20:26)
[2018-09-15] MEDS: ASCORBIC ACID 500 MG TABLET PO SCH ×2 (08:37→16:43)
[2018-09-15] MEDS: risperiDONE 0.5 MG TABLET. PO SCH ×2 (08:37→20:26)
[2018-09-15] MEDS: CHOLECALCIFEROL (VITAMIN D3) 1,000 UNIT TABLET PO SCH (08:37)
[2018-09-15] MEDS: CARVEDILOL 6.25 MG TABLET PO SCH ×2 (08:37→16:43)
[2018-09-15] MEDS: NYSTATIN TOPICAL POWDER 15GM BOTTLE. TP SCH ×2 (08:38→20:30)
[2018-09-15] MEDS: DICLOFENAC SODIUM 1% TOPICAL GEL 100GM TUBE. TP SCH ×4 (08:38→20:27)
[2018-09-15] MEDS: AMANTADINE HCL 100 MG CAPSULE PO SCH ×2 (08:40→20:29)
[2018-09-15] MEDS: METHOTREXATE SODIUM 2.5 MG TABLET PO SCH (08:41)
[2018-09-15] MEDS: INSULIN LISPRO 300 UNITS/3 ML INSULN.PEN. SQ SCH ×3 (08:42→18:50)
--- NOTE | 2018-09-15 09:52 | PDOC ---
PROGRESS NOTES Diagnosis Problem Problems Medical Problems: (1) Schizo-affective schizophrenia Status: Acute Assessment Problems Medical Problems: (1) Schizo-affective schizophrenia Status: Acute 1. mild acute on chronic systolic heart failure - continue current medications. EF 15%. ? if this is new or previously known. awaiting prior records. If not previously known would need MPI vs cath in the near future as an outpatient. 2. atypical chest pain with Km remaining in the indeterminate range. CO ruled out. 3. HTN - mild hypotension today. repeat BMP and decrease lasix. 4. HLD - continue meds 5. DM - per PCP Subjective up in day room, no complaints Objective Vital Signs Date Time Temp Pulse Resp B/P (MAP) Pulse Ox O2 Delivery O2 Flow Rate FiO2 09/15/18 08:37 97 98/59 09/15/18 05:39 98.0 18 100 09/13/18 05:46 Room Air Intake and Output 09/15/18 07:01 Intake Total 1085 ml Balance 1085 ml Intake Oral 1085 ml # Bowel Movements 1 Physical Exam Abdomen: bowel sounds present Heart: Normal S1, Normal S2, Other (no gallops, clicks or rubs) Extremities: No cyanosis, 1+ edema General: Alert, Cooperative, No acute distress HEENT: Atraumatic Lungs: clear with upper airway ronchi Review of Relevant I have reviewed the following items sarmad (where applicable) has been applied. Labs Laboratory Tests Test 09/13/18 11:28 09/13/18 16:35 09/13/18 19:08 09/14/18 07:45 Glucose (Fingerstick) 108 mg/dL (70-99) 130 mg/dL (70-99) 201 mg/dL (70-99) 87 mg/dL (70-99) Test 09/14/18 11:25 09/14/18 17:11 09/14/18 19:21 Glucose (Fingerstick) 153 mg/dL (70-99) 104 mg/dL (70-99) 163 mg/dL (70-99) Medications Current Medications Acetaminophen (Tylenol) 650 mg PRN Q6HRS PRN PO PAIN / TEMP Last administered on 09/12/18at 02:17; Start 08/11/18 at 21:00 Multi-Ingredient Ointment (Analgesic [place]) 1 yaima PRN QID PRN TP MUSCLE PAIN; Start 08/11/18 at 21:00 Al Hydroxide/Mg Hydroxide (Mylanta Plus Xs) 15 ml PRN AFTMEALHC PRN PO DYSPEPSIA; Start 08/11/18 at 21:00 Magnesium Hydroxide (Milk Of Magnesia) 2,400 mg PRN QHS PRN PO CONSTIPATION; Start 08/11/18 at 21:00 Alprazolam (Xanax) 0.5 mg PRN Q6HRS PRN PO ANXIETY / AGITATION Last administered on 08/21/18at 20:06; Start 08/11/18 at 22:30 Divalproex Sodium (Depakote Sprinkles) 250 mg BIDWMEALS PO Last administered on 08/13/18at 18:08; Start 08/12/18 at 08:00; Stop 08/13/18 at 20:26; Status DC Duloxetine HCl (Cymbalta) 60 mg BIDWMEALS PO Last administered on 08/13/18at 18 :08; Start 08/12/18 at 08:00; Stop 08/13/18 at 20:26; Status DC Risperidone (RisperDAL) 2 mg BIDWMEALS PO Last administered on 08/14/18at 17:45 ; Start 08/12/18 at 08:00; Stop 08/14/18 at 18:45; Status DC Trazodone HCl (Desyrel) 100 mg HS PO Last administered on 09/14/18 21:33; Start 08/11/18 at 22:30 Ascorbic Acid (Vitamin C) 500 mg BIDWMEALS PO Last administered on 09/15/18 08 :37; Start 08/12/18 at 08:00 Calcium Carbonate/ Glycine (Tums) 500 mg PRN Q6HRS PRN PO INDIGESTION; Start 08/11/18 at 22:15 Vitamin D (Vitamin D3) 2,000 unit DAILY PO Last administered on 09/15/18 08:37 ; Start 08/12/18 at 09:00 Diclofenac Sodium (Voltaren) 1 yaima QID TP Last administered on 09/15/18 08:38 ; Start 08/12/18 at 09:00 Guaifenesin (Mucinex Er) 600 mg BIDWMEALS PO Last administered on 09/15/18 08: 36; Start 08/12/18 at 08:00 Acetaminophen/ Hydrocodone Bitart (Lortab 5/325) 1 tab PRN Q6HRS PRN PO PAIN Last administered on 09/08/18 17:32; Start 08/11/18 at 22:15 Levothyroxine Sodium (Synthroid) 100 mcg DAILY06 PO Last administered on 05:48; Start 08/12/18 at 06:00 Lisinopril (Prinivil) 10 mg DAILY PO Last administered on 09/15/18 08:35; Start 08/12/18 at 09:00 Nitroglycerin (Nitrostat) 0.4 mg PRN Q5MIN PRN SL CHEST PAIN; Start 08/11/18 at 22:15 Nystatin (Nystop) 1 yaima BID TP Last administered on 09/15/18 08:38; Start at 09:00 Allopurinol (Zyloprim) 100 mg DAILY PO Last administered on 09/15/18 08:35; Start 08/12/18 at 09:00 Carvedilol (Coreg) 12.5 mg BIDWMEALS PO Last administered on 09/03/18 08:42; Start 08/12/18 at 08:00; Stop 09/04/18 at 11:25; Status DC Folic Acid (Folic Acid) 1 mg DAILY PO Last administered on 09/15/18 08:35; Start 08/12/18 at 09:00 Furosemide (Lasix) 40 mg DAILY PO Last administered on 09/13/18 09:12; Start 08/12/18 at 09:00; Stop 09/13/18 at 17:08; Status DC Insulin Human Lispro (HumaLOG) 5 units TIDWMEALS SQ Last administered on 08:42; Start 08/12/18 at 08:00 Insulin Glargine (Lantus) 10 units QHS SQ Last administered on 09/14/18 21:36 ; Start 08/11/18 at 23:00 Loperamide HCl (Imodium) 2 mg PRN Q6HRS PRN PO DIARRHEA; Start 08/11/18 at 22: 45 Non-Formulary Medication (Magnesium Hydroxide (Milk Of Magnesia)) 2,400 mg PRN DAILY PRN PO CONSTIPATION; Start 08/11/18 at 22:15; Status UNV Metformin HCl (Glucophage) 1,000 mg BIDWMEALS PO Last administered on 08:36; Start 08/12/18 at 08:00 Methotrexate (Rheumatrex) 15 mg WEEKLY PO Last administered on 09/15/18 08:41 ; Start 08/18/18 at 09:00 Multivitamins/ Calcium (Thera-M Plus) 1 tab DAILY PO Last administered on 08:36; Start 08/12/18 at 09:00 Glucose (Insta-Glucose) 15 gm PRN Q15MIN PRN PO LOW BLOOD SUGAR; Start at 08:15 Divalproex Sodium (Depakote Sprinkles) 500 mg BIDWMEALS PO ; Start 08/13/18 at 20:27; Stop 08/13/18 at 20:36; Status DC Duloxetine HCl (Cymbalta) 60 mg DAILY PO Last administered on 09/15/18 08:35; Start 08/14/18 at 09:00 Divalproex Sodium (Depakote Sprinkles) 500 mg BIDWMEALS PO Last administered on 09/15/18 08:36; Start 08/14/18 at 08:00 Risperidone (RisperDAL) 1.5 mg DAILY PO ; Start 08/14/18 at 19:00; Stop at 19:00; Status DC Risperidone (RisperDAL) 2 mg HS PO Last administered on 08/16/18at 18:51; Start 08/14/18 at 21:00; Stop 08/17/18 at 18:30; Status DC Risperidone (RisperDAL) 1.5 mg HS PO ; Start 08/18/18 at 21:00; Stop 08/18/18 at 21:00; Status DC Risperidone (RisperDAL) 1.5 mg DAILY PO Last administered on 08/17/18at 08:08; Start 08/15/18 at 09:00; Stop 08/17/18 at 18:30; Status DC Amantadine HCl (Symmetrel) 100 mg DAILY PO Last administered on 08/23/18 08:00 ; Start 08/17/18 at 09:00; Stop 08/23/18 at 21:37; Status DC Risperidone (RisperDAL) 1.5 mg BID PO Last administered on 08/19/18 08:15; Start 08/17/18 at 21:00; Stop 08/19/18 at 15:58; Status DC Risperidone (RisperDAL) 1 mg BID PO Last administered on 08/22/18at 11:33; Start 08/19/18 at 21:00; Stop 08/22/18 at 17:30; Status DC Risperidone (RisperDAL) 1 mg QHS PO Last administered on 08/24/18 20:41; Start 08/22/18 at 21:00; Stop 08/25/18 at 18:41; Status DC Risperidone (RisperDAL) 0.5 mg DAILY PO Last administered on 08/25/18 11:14; Start 08/23/18 at 09:00; Stop 08/25/18 at 09:00; Status DC Amantadine HCl (Symmetrel) 100 mg BID PO Last administered on 09/15/18 08:40; Start 08/24/18 at 09:00 Risperidone (RisperDAL) 1.5 mg BID PO Last administered on 09/15/18 08:37; Start 08/26/18 at 09:00 Risperidone (RisperDAL) 2 mg HS PO Last administered on 08/25/18 20:03; Start 08/25/18 at 21:00; Stop 08/25/18 at 21:01; Status DC Trazodone HCl (Desyrel) 100 mg PRN QHS PRN PO INSOMNIA Last administered on 08/31 02:29; Start 08/30/18 at 18:45 Potassium Chloride (Klor-Con) 20 meq TID PO Last administered on 09/03/18 14: 25; Start 08/31/18 at 21:00; Stop 09/03/18 at 17:14; Status DC Doxycycline Hyclate (Vibra-Tab) 100 mg BID PO Last administered on 09/13/18 20 :13; Start 09/03/18 at 21:00; Stop 09/13/18 at 20:59; Status DC Lactobacillus Rhamnosus (Culturelle) 1 cap BID PO Last administered on 08:36; Start 09/03/18 at 21:00 Carvedilol (Coreg) 6.25 mg BIDWMEALS PO Last administered on 09/15/18at 08:37; Start 09/04/18 at 17:00 Aspirin (Aspirin Enteric Coated) 81 mg DAILYWBKFT PO Last administered on at 08:35; Start 09/14/18 at 08:00 Furosemide (Lasix) 40 mg BID PO Last administered on 09/15/18at 08:36; Start at 21:00 Potassium Chloride (Klor-Con) 20 meq BID PO Last administered on 09/15/18at 08: 35; Start 09/13/18 at 21:00 Active Scripts Active Reported Xanax (Alprazolam) 0.5 Mg Tablet 0.5 Mg PO PRN Q6HRS PRN Hydrocodone-Apap 5-325 (Hydrocodone Bit/Acetaminophen) 1 Each Tablet 1 Tab PO PRN Q6HRS PRN Voltaren (Diclofenac Sodium) 100 Gm Gel..gram. 4 Gm TP QID Nystatin 15 Gm Powder 1 Yaima TP BID Tums (Calcium Carbonate) 200 Mg Tab.chew 2 Tab PO PRN Q6HRS PRN Nitrostat (Nitroglycerin) 0.4 Mg Tab.subl 0.4 Mg SL PRN Q5MIN PRN Milk Of Magnesia (Magnesium Hydroxide) 2,400 Mg/10 Ml Oral.susp 2,400 Mg PO PRN DAILY PRN Loperamide (Loperamide Hcl) 2 Mg Tablet 2 Mg PO PRN Q6HRS PRN Vitamin C (Ascorbic Acid) 500 Mg Tablet 500 Mg PO BIDWMEALS Risperdal (Risperidone) 2 Mg Tablet 2 Mg PO BIDWMEALS Mucinex (Guaifenesin) 600 Mg Tablet.er 600 Mg PO BIDWMEALS Metformin Hcl 1,000 Mg Tablet 1,000 Mg PO BIDWMEALS Cymbalta (Duloxetine Hcl) 60 Mg Capsule.dr 60 Mg PO BIDWMEALS Depakote Sprinkle (Divalproex Sodium) 125 Mg Cap.sprink 250 Mg PO BIDWMEALS Coreg (Carvedilol) 12.5 Mg Tablet 12.5 Mg PO BIDWMEALS Vitamin D3 (Cholecalciferol (Vitamin D3)) 1,000 Unit Tablet 2,000 Unit PO DAILY Trazodone Hcl 100 Mg Tablet 100 Mg PO HS Multivitamins (Multivitamin) 1 Each Tablet 1 Tab PO DAILY Methotrexate (Methotrexate Sodium) 2.5 Mg Tablet 15 Mg PO WEEKLY Lisinopril 10 Mg Tablet 10 Mg PO DAILY Levothyroxine Sodium 100 Mcg Tablet 100 Mcg PO DAILYAC Lasix (Furosemide) 40 Mg Tablet 40 Mg PO DAILY Folic Acid 1 Mg Tablet 1 Mg PO DAILY Allopurinol 100 Mg Tablet 100 Mg PO DAILY Novolog (Insulin Aspart) 100 Unit/1 Ml Vial 5 Unit SQ TIDWMEALS Levemir (Insulin Detemir) 100 Unit/1 Ml Vial 10 Unit SQ HS Vitals/I & O Vital Sign - Last 24 Hours 09/14/18 09/14/18 09/15/18 09/15/18 17:02 17:29 05:39 08:35 Temp 98.4 98.0 Pulse 67 67 97 97 Resp 22 18 B/P (MAP) 108/59 (75) 108/59 98/59 (72) 98/59 Pulse Ox 100 100 09/15/18 08:37 Pulse 97 B/P (MAP) 98/59 Intake and Output 09/14/18 09/14/18 09/15/18 15:01 23:01 07:01 Intake Total 600 ml 360 ml 125 ml Balance 600 ml 360 ml 125 ml BHASKAR WILEY APRN Sep 15, 2018 09:51
[2018-09-15 10:42] LABS: CALCIUM 9.4 mg/dL (8.5-10.1); CREATININE 1.3 mg/dL (0.6-1.0); GFR 41.8; POTASSIUM 4.6 mmol/L (3.5-5.1)
[2018-09-15 16:43] VITALS: BP 100/85
[2018-09-15] MEDS: traZODone 100 MG TABLET. PO SCH (20:26)
[2018-09-15] MEDS: INSULIN GLARGINE 300 UNITS/3 ML INSULN.PEN. SQ SCH (20:33)
--- NOTE | 2018-09-15 22:54 | PDOC ---
Exam Note: Johnnie Note: Please also refer to the separate dictated note~for this date of service dictated separately.~Patient seen individually. Discussed the patient with Nursing staff reviewed the chart.~Reviewed interim history and current functioning. Reviewed vital signs,~Labs/ Radiology~and current medications noted below. Continue current treatment with the changes noted in the dictated addendum note Assessment: Vital Signs: Vital Signs Date Time Temp Pulse Resp B/P (MAP) Pulse Ox O2 Delivery O2 Flow Rate FiO2 09/15/18 16:43 98.4 71 22 100/85 (90) 100 09/13/18 05:46 Room Air I&O Intake and Output 09/15/18 07:01 Intake Total 1085 ml Balance 1085 ml Intake Oral 1085 ml # Bowel Movements 1 Labs: Laboratory Tests Test 09/15/18 10:28 09/15/18 11:42 09/15/18 17:09 09/15/18 19:10 Sodium Level 140 mmol/L (136-145) Potassium Level 4.6 mmol/L (3.5-5.1) Chloride Level 100 mmol/L (98-107) Carbon Dioxide Level 31 mmol/L (21-32) Anion Gap 9 (6-14) Blood Urea Nitrogen 15 mg/dL (7-20) Creatinine 1.3 mg/dL (0.6-1.0) H Estimated GFR (Cockcroft-Gault) 41.8 Glucose Level 139 mg/dL (70-99) H Calcium Level 9.4 mg/dL (8.5-10.1) Glucose (Fingerstick) 118 mg/dL (70-99) H 133 mg/dL (70-99) H 158 mg/dL (70-99) H Current Medications: Meds: Current Medications Acetaminophen (Tylenol) 650 mg PRN Q6HRS PRN PO PAIN / TEMP Last administered on 09/12/18at 02:17; Start 08/11/18 at 21:00 Multi-Ingredient Ointment (Analgesic [place]) 1 yaima PRN QID PRN TP MUSCLE PAIN; Start 08/11/18 at 21:00 Al Hydroxide/Mg Hydroxide (Mylanta Plus Xs) 15 ml PRN AFTMEALHC PRN PO DYSPEPSIA; Start 08/11/18 at 21:00 Magnesium Hydroxide (Milk Of Magnesia) 2,400 mg PRN QHS PRN PO CONSTIPATION; Start 08/11/18 at 21:00 Alprazolam (Xanax) 0.5 mg PRN Q6HRS PRN PO ANXIETY / AGITATION Last administered on 08/21/18 20:06; Start 08/11/18 at 22:30 Divalproex Sodium (Depakote Sprinkles) 250 mg BIDWMEALS PO Last administered on 08/13/18at 18:08; Start 08/12/18 at 08:00; Stop 08/13/18 at 20:26; Status DC Duloxetine HCl (Cymbalta) 60 mg BIDWMEALS PO Last administered on 08/13/18 18 :08; Start 08/12/18 at 08:00; Stop 08/13/18 at 20:26; Status DC Risperidone (RisperDAL) 2 mg BIDWMEALS PO Last administered on 08/14/18at 17:45 ; Start 08/12/18 at 08:00; Stop 08/14/18 at 18:45; Status DC Trazodone HCl (Desyrel) 100 mg HS PO Last administered on 09/15/18 20:26; Start 08/11/18 at 22:30 Ascorbic Acid (Vitamin C) 500 mg BIDWMEALS PO Last administered on 09/15/18 16 :43; Start 08/12/18 at 08:00 Calcium Carbonate/ Glycine (Tums) 500 mg PRN Q6HRS PRN PO INDIGESTION; Start 08/11/18 at 22:15 Vitamin D (Vitamin D3) 2,000 unit DAILY PO Last administered on 09/15/18 08:37 ; Start 08/12/18 at 09:00 Diclofenac Sodium (Voltaren) 1 yaima QID TP Last administered on 09/15/18 20:27 ; Start 08/12/18 at 09:00 Guaifenesin (Mucinex Er) 600 mg BIDWMEALS PO Last administered on 09/15/18 16: 43; Start 08/12/18 at 08:00 Acetaminophen/ Hydrocodone Bitart (Lortab 5/325) 1 tab PRN Q6HRS PRN PO PAIN Last administered on 09/08/18 17:32; Start 08/11/18 at 22:15 Levothyroxine Sodium (Synthroid) 100 mcg DAILY06 PO Last administered on 05:48; Start 08/12/18 at 06:00 Lisinopril (Prinivil) 10 mg DAILY PO Last administered on 09/15/18 08:35; Start 08/12/18 at 09:00 Nitroglycerin (Nitrostat) 0.4 mg PRN Q5MIN PRN SL CHEST PAIN; Start 08/11/18 at 22:15 Nystatin (Nystop) 1 yaima BID TP Last administered on 09/15/18 08:38; Start at 09:00; Stop 09/15/18 at 14:19; Status DC Allopurinol (Zyloprim) 100 mg DAILY PO Last administered on 09/15/18 08:35; Start 08/12/18 at 09:00 Carvedilol (Coreg) 12.5 mg BIDWMEALS PO Last administered on 09/03/18 08:42; Start 08/12/18 at 08:00; Stop 09/04/18 at 11:25; Status DC Folic Acid (Folic Acid) 1 mg DAILY PO Last administered on 09/15/18 08:35; Start 08/12/18 at 09:00 Furosemide (Lasix) 40 mg DAILY PO Last administered on 09/13/18 09:12; Start 08/12/18 at 09:00; Stop 09/13/18 at 17:08; Status DC Insulin Human Lispro (HumaLOG) 5 units TIDWMEALS SQ Last administered on 18:50; Start 08/12/18 at 08:00 Insulin Glargine (Lantus) 10 units QHS SQ Last administered on 09/15/18 20:33 ; Start 08/11/18 at 23:00 Loperamide HCl (Imodium) 2 mg PRN Q6HRS PRN PO DIARRHEA; Start 08/11/18 at 22: 45 Non-Formulary Medication (Magnesium Hydroxide (Milk Of Magnesia)) 2,400 mg PRN DAILY PRN PO CONSTIPATION; Start 08/11/18 at 22:15; Status UNV Metformin HCl (Glucophage) 1,000 mg BIDWMEALS PO Last administered on 16:43; Start 08/12/18 at 08:00 Methotrexate (Rheumatrex) 15 mg WEEKLY PO Last administered on 09/15/18 08:41 ; Start 08/18/18 at 09:00 Multivitamins/ Calcium (Thera-M Plus) 1 tab DAILY PO Last administered on 08:36; Start 08/12/18 at 09:00 Glucose (Insta-Glucose) 15 gm PRN Q15MIN PRN PO LOW BLOOD SUGAR; Start at 08:15 Divalproex Sodium (Depakote Sprinkles) 500 mg BIDWMEALS PO ; Start 08/13/18 at 20:27; Stop 08/13/18 at 20:36; Status DC Duloxetine HCl (Cymbalta) 60 mg DAILY PO Last administered on 09/15/18 08:35; Start 08/14/18 at 09:00 Divalproex Sodium (Depakote Sprinkles) 500 mg BIDWMEALS PO Last administered on 09/15/18 16:43; Start 08/14/18 at 08:00 Risperidone (RisperDAL) 1.5 mg DAILY PO ; Start 08/14/18 at 19:00; Stop at 19:00; Status DC Risperidone (RisperDAL) 2 mg HS PO Last administered on 08/16/18at 18:51; Start 08/14/18 at 21:00; Stop 08/17/18 at 18:30; Status DC Risperidone (RisperDAL) 1.5 mg HS PO ; Start 08/18/18 at 21:00; Stop 08/18/18 at 21:00; Status DC Risperidone (RisperDAL) 1.5 mg DAILY PO Last administered on 08/17/18at 08:08; Start 08/15/18 at 09:00; Stop 08/17/18 at 18:30; Status DC Amantadine HCl (Symmetrel) 100 mg DAILY PO Last administered on 08/23/18 08:00 ; Start 08/17/18 at 09:00; Stop 08/23/18 at 21:37; Status DC Risperidone (RisperDAL) 1.5 mg BID PO Last administered on 08/19/18at 08:15; Start 08/17/18 at 21:00; Stop 08/19/18 at 15:58; Status DC Risperidone (RisperDAL) 1 mg BID PO Last administered on 08/22/18at 11:33; Start 08/19/18 at 21:00; Stop 08/22/18 at 17:30; Status DC Risperidone (RisperDAL) 1 mg QHS PO Last administered on 08/24/18 20:41; Start 08/22/18 at 21:00; Stop 08/25/18 at 18:41; Status DC Risperidone (RisperDAL) 0.5 mg DAILY PO Last administered on 08/25/18 11:14; Start 08/23/18 at 09:00; Stop 08/25/18 at 09:00; Status DC Amantadine HCl (Symmetrel) 100 mg BID PO Last administered on 09/15/18 20:29; Start 08/24/18 at 09:00 Risperidone (RisperDAL) 1.5 mg BID PO Last administered on 09/15/18 20:26; Start 08/26/18 at 09:00 Risperidone (RisperDAL) 2 mg HS PO Last administered on 08/25/18 20:03; Start 08/25/18 at 21:00; Stop 08/25/18 at 21:01; Status DC Trazodone HCl (Desyrel) 100 mg PRN QHS PRN PO INSOMNIA Last administered on 08/31 02:29; Start 08/30/18 at 18:45 Potassium Chloride (Klor-Con) 20 meq TID PO Last administered on 09/03/18 14: 25; Start 08/31/18 at 21:00; Stop 09/03/18 at 17:14; Status DC Doxycycline Hyclate (Vibra-Tab) 100 mg BID PO Last administered on 09/13/18 20 :13; Start 09/03/18 at 21:00; Stop 09/13/18 at 20:59; Status DC Lactobacillus Rhamnosus (Culturelle) 1 cap BID PO Last administered on 20:26; Start 09/03/18 at 21:00 Carvedilol (Coreg) 6.25 mg BIDWMEALS PO Last administered on 09/15/18 16:43; Start 09/04/18 at 17:00 Aspirin (Aspirin Enteric Coated) 81 mg DAILYWBKFT PO Last administered on 1/24/ 19at 08:35; Start 09/14/18 at 08:00 Furosemide (Lasix) 40 mg BID PO Last administered on 09/15/18at 08:36; Start at 21:00; Stop 09/15/18 at 11:23; Status DC Potassium Chloride (Klor-Con) 20 meq BID PO Last administered on 09/15/18at 08: 35; Start 09/13/18 at 21:00; Stop 09/15/18 at 11:23; Status DC Furosemide (Lasix) 40 mg DAILY PO ; Start 09/16/18 at 09:00 Potassium Chloride (Klor-Con) 20 meq DAILY PO ; Start 09/16/18 at 09:00 Nystatin (Nystop) 1 yaima TID TP Last administered on 09/15/18at 20:30; Start at 21:00 Active Scripts Active Reported Xanax (Alprazolam) 0.5 Mg Tablet 0.5 Mg PO PRN Q6HRS PRN Hydrocodone-Apap 5-325 (Hydrocodone Bit/Acetaminophen) 1 Each Tablet 1 Tab PO PRN Q6HRS PRN Voltaren (Diclofenac Sodium) 100 Gm Gel..gram. 4 Gm TP QID Nystatin 15 Gm Powder 1 Yaima TP BID Tums (Calcium Carbonate) 200 Mg Tab.chew 2 Tab PO PRN Q6HRS PRN Nitrostat (Nitroglycerin) 0.4 Mg Tab.subl 0.4 Mg SL PRN Q5MIN PRN Milk Of Magnesia (Magnesium Hydroxide) 2,400 Mg/10 Ml Oral.susp 2,400 Mg PO PRN DAILY PRN Loperamide (Loperamide Hcl) 2 Mg Tablet 2 Mg PO PRN Q6HRS PRN Vitamin C (Ascorbic Acid) 500 Mg Tablet 500 Mg PO BIDWMEALS Risperdal (Risperidone) 2 Mg Tablet 2 Mg PO BIDWMEALS Mucinex (Guaifenesin) 600 Mg Tablet.er 600 Mg PO BIDWMEALS Metformin Hcl 1,000 Mg Tablet 1,000 Mg PO BIDWMEALS Cymbalta (Duloxetine Hcl) 60 Mg Capsule.dr 60 Mg PO BIDWMEALS Depakote Sprinkle (Divalproex Sodium) 125 Mg Cap.sprink 250 Mg PO BIDWMEALS Coreg (Carvedilol) 12.5 Mg Tablet 12.5 Mg PO BIDWMEALS Vitamin D3 (Cholecalciferol (Vitamin D3)) 1,000 Unit Tablet 2,000 Unit PO DAILY Trazodone Hcl 100 Mg Tablet 100 Mg PO HS Multivitamins (Multivitamin) 1 Each Tablet 1 Tab PO DAILY Methotrexate (Methotrexate Sodium) 2.5 Mg Tablet 15 Mg PO WEEKLY Lisinopril 10 Mg Tablet 10 Mg PO DAILY Levothyroxine Sodium 100 Mcg Tablet 100 Mcg PO DAILYAC Lasix (Furosemide) 40 Mg Tablet 40 Mg PO DAILY Folic Acid 1 Mg Tablet 1 Mg PO DAILY Allopurinol 100 Mg Tablet 100 Mg PO DAILY Novolog (Insulin Aspart) 100 Unit/1 Ml Vial 5 Unit SQ TIDWMEALS Levemir (Insulin Detemir) 100 Unit/1 Ml Vial 10 Unit SQ HS I have reviewed the current psychotropics carefully including drug interactions. Risk benefit ratio favors no change other than as noted in my dictated progress note. Diagnosis: Problems: (1) Anxiety disorder (2) Major depressive disorder, recurrent episode (3) Impulse control disorder (4) Dementia in Alzheimer's disease with delusions (5) Dementia in Alzheimer's disease with depression (6) Dementia, vascular, with delusions (7) Dementia, vascular, with depression KAITLIN DREW MD Sep 15, 2018 22:54
[2018-09-16 06:03] VITALS: BP 98/62
[2018-09-16] MEDS: LEVOTHYROXINE 100 MCG TABLET PO SCH (06:24)
[2018-09-16] MEDS: CARVEDILOL 6.25 MG TABLET PO SCH ×2 (08:00→17:37)
[2018-09-16] MEDS: INSULIN LISPRO 300 UNITS/3 ML INSULN.PEN. SQ SCH ×3 (08:00→17:54)
[2018-09-16] MEDS: DIVALPROEX 125 MG CAP.SPRINK PO SCH ×2 (08:01→17:37)
[2018-09-16] MEDS: LACTOBACILLUS RHAMNOSUS GG 1 CAPSULE. PO SCH ×2 (08:02→20:34)
[2018-09-16] MEDS: ASPIRIN ENTERIC COATED 81 MG TABLET.DR. PO SCH (08:02)
[2018-09-16] MEDS: ALLOPURINOL 100 MG TABLET. PO SCH (08:02)
[2018-09-16] MEDS: risperiDONE 0.5 MG TABLET. PO SCH ×2 (08:02→20:34)
[2018-09-16] MEDS: metFORMIN 500 MG TABLET PO SCH ×2 (08:03→17:37)
[2018-09-16] MEDS: CHOLECALCIFEROL (VITAMIN D3) 1,000 UNIT TABLET PO SCH (08:03)
[2018-09-16] MEDS: ASCORBIC ACID 500 MG TABLET PO SCH ×2 (08:04→17:37)
[2018-09-16] MEDS: FOLIC ACID 1 MG TABLET PO SCH (08:04)
[2018-09-16] MEDS: DULoxetine HCL 60 MG CAPSULE.DR PO SCH (08:04)
[2018-09-16] MEDS: MULTIVITAMIN with MINERAL TABLET. PO SCH (08:04)
[2018-09-16] MEDS: FUROSEMIDE 40 MG TABLET PO SCH (08:09)
[2018-09-16] MEDS: POTASSIUM CHLORIDE 20 MEQ TABLET.ER. PO SCH (08:09)
[2018-09-16] MEDS: LISINOPRIL 10 MG TABLET PO SCH (09:00)
[2018-09-16] MEDS: DICLOFENAC SODIUM 1% TOPICAL GEL 100GM TUBE. TP SCH ×4 (09:00→20:35)
[2018-09-16] MEDS: NYSTATIN TOPICAL POWDER 15GM BOTTLE. TP SCH ×3 (11:00→20:36)
[2018-09-16] MEDS: AMANTADINE HCL 100 MG CAPSULE PO SCH ×2 (11:42→20:34)
--- NOTE | 2018-09-16 16:00 | PN ---
DATE: 09/14/2018 PSYCHIATRIC PROGRESS NOTE This late entry 09/14/2018 covers elements, not covered in my initial note. SUBJECTIVE: I met with the patient in the evening. The patient slept 7 hours previous night. She is just back in bed after breakfast, somewhat sedated, but not aggressive. REVIEW OF SYSTEMS: She is unable to speak and is totally hard of hearing. Communication is nonverbal and on the white board by writing. Does ambulate on her own. No CV, , GI, eye system symptoms on review. MENTAL STATUS EXAM: Oriented to herself and situation. Speech as above. Abstraction fair, computation impaired, language function intact. Mood and affect despite the above is improved. LABORATORY DATA: Reviewed. IMPRESSION: Schizoaffective disorder, bipolar type, mixed with psychotic features; anxiety disorder, unspecified. Rest as above. PLAN: Continue psychotropics from initial note. Our attempts to reduce the Haldol to very minimal dosage are failed and she seems to be stable on the current dosage. Discussed with nursing staff about transition to fdc. KAITLIN DREW MD DR: STEFAN/satya JOB#: [id number] / [id number]
[2018-09-16 16:24] LABS: CALCIUM 8.9 mg/dL (8.5-10.1); CREATININE 1.2 mg/dL (0.6-1.0); GFR 45.8; POTASSIUM 4.5 mmol/L (3.5-5.1)
[2018-09-16 17:00] VITALS: BP 104/60
--- NOTE | 2018-09-16 19:03 | RAD ---
Chest radiograph 09/16/2018 6:22 PM INDICATION: Cough COMPARISON: September 13, 2018 TECHNIQUE: Frontal and lateral views of the chest are provided. FINDINGS: The cardiomediastinal silhouette is enlarged, stable. There are no pleural effusions. There is no pulmonary vascular congestion. There is no pneumothorax. The lungs are clear. No significant osseous abnormality is identified. IMPRESSION: Cardiomegaly without acute cardiopulmonary process. Electronically signed by: Bing Magallon MD (09/16/2018 6:58 PM) [facility]
[2018-09-16] MEDS: traZODone 100 MG TABLET. PO SCH (20:34)
[2018-09-16] MEDS: INSULIN GLARGINE 300 UNITS/3 ML INSULN.PEN. SQ SCH (20:38)
--- NOTE | 2018-09-16 22:41 | PDOC ---
Exam Note: Johnnie Note: Please also refer to the separate dictated note~for this date of service dictated separately.~Patient seen individually. Discussed the patient with Nursing staff reviewed the chart.~Reviewed interim history and current functioning. Reviewed vital signs,~Labs/ Radiology~and current medications noted below. Continue current treatment with the changes noted in the dictated addendum note Assessment: Vital Signs: Vital Signs Date Time Temp Pulse Resp B/P (MAP) Pulse Ox O2 Delivery O2 Flow Rate FiO2 09/16/18 17:37 88 104/60 09/16/18 17:00 98.0 18 95 Room Air I&O Intake and Output 09/16/18 07:01 Intake Total 1220 ml Balance 1220 ml Intake Oral 1220 ml # Voids 1 Labs: Laboratory Tests Test 09/16/18 07:19 09/16/18 11:51 09/16/18 15:55 09/16/18 17:42 Glucose (Fingerstick) 80 mg/dL (70-99) 153 mg/dL (70-99) H 179 mg/dL (70-99) H Sodium Level 139 mmol/L (136-145) Potassium Level 4.5 mmol/L (3.5-5.1) Chloride Level 101 mmol/L (98-107) Carbon Dioxide Level 28 mmol/L (21-32) Anion Gap 10 (6-14) Blood Urea Nitrogen 16 mg/dL (7-20) Creatinine 1.2 mg/dL (0.6-1.0) H Estimated GFR (Cockcroft-Gault) 45.8 Glucose Level 161 mg/dL (70-99) H Calcium Level 8.9 mg/dL (8.5-10.1) Test 09/16/18 19:12 Glucose (Fingerstick) 164 mg/dL (70-99) H Current Medications: Meds: Current Medications Acetaminophen (Tylenol) 650 mg PRN Q6HRS PRN PO PAIN / TEMP Last administered on 09/12/18at 02:17; Start 08/11/18 at 21:00 Multi-Ingredient Ointment (Analgesic [place]) 1 yaima PRN QID PRN TP MUSCLE PAIN; Start 08/11/18 at 21:00 Al Hydroxide/Mg Hydroxide (Mylanta Plus Xs) 15 ml PRN AFTMEALHC PRN PO DYSPEPSIA; Start 08/11/18 at 21:00 Magnesium Hydroxide (Milk Of Magnesia) 2,400 mg PRN QHS PRN PO CONSTIPATION; Start 08/11/18 at 21:00 Alprazolam (Xanax) 0.5 mg PRN Q6HRS PRN PO ANXIETY / AGITATION Last administered on 08/21/18at 20:06; Start 08/11/18 at 22:30 Divalproex Sodium (Depakote Sprinkles) 250 mg BIDWMEALS PO Last administered on 08/13/18at 18:08; Start 08/12/18 at 08:00; Stop 08/13/18 at 20:26; Status DC Duloxetine HCl (Cymbalta) 60 mg BIDWMEALS PO Last administered on 08/13/18 18 :08; Start 08/12/18 at 08:00; Stop 08/13/18 at 20:26; Status DC Risperidone (RisperDAL) 2 mg BIDWMEALS PO Last administered on 08/14/18at 17:45 ; Start 08/12/18 at 08:00; Stop 08/14/18 at 18:45; Status DC Trazodone HCl (Desyrel) 100 mg HS PO Last administered on 09/16/18 20:34; Start 08/11/18 at 22:30 Ascorbic Acid (Vitamin C) 500 mg BIDWMEALS PO Last administered on 09/16/18 17 :37; Start 08/12/18 at 08:00 Calcium Carbonate/ Glycine (Tums) 500 mg PRN Q6HRS PRN PO INDIGESTION; Start 08/11/18 at 22:15 Vitamin D (Vitamin D3) 2,000 unit DAILY PO Last administered on 09/16/18 08:03 ; Start 08/12/18 at 09:00 Diclofenac Sodium (Voltaren) 1 yaima QID TP Last administered on 09/16/18 20:35 ; Start 08/12/18 at 09:00 Guaifenesin (Mucinex Er) 600 mg BIDWMEALS PO Last administered on 09/16/18 17: 36; Start 08/12/18 at 08:00 Acetaminophen/ Hydrocodone Bitart (Lortab 5/325) 1 tab PRN Q6HRS PRN PO PAIN Last administered on 1/17/19at 17:32; Start 08/11/18 at 22:15 Levothyroxine Sodium (Synthroid) 100 mcg DAILY06 PO Last administered on 06:24; Start 08/12/18 at 06:00 Lisinopril (Prinivil) 10 mg DAILY PO Last administered on 09/15/18 08:35; Start 08/12/18 at 09:00 Nitroglycerin (Nitrostat) 0.4 mg PRN Q5MIN PRN SL CHEST PAIN; Start 08/11/18 at 22:15 Nystatin (Nystop) 1 yaima BID TP Last administered on 09/15/18 08:38; Start at 09:00; Stop 09/15/18 at 14:19; Status DC Allopurinol (Zyloprim) 100 mg DAILY PO Last administered on 09/16/18 08:02; Start 08/12/18 at 09:00 Carvedilol (Coreg) 12.5 mg BIDWMEALS PO Last administered on 09/03/18 08:42; Start 08/12/18 at 08:00; Stop 09/04/18 at 11:25; Status DC Folic Acid (Folic Acid) 1 mg DAILY PO Last administered on 09/16/18 08:04; Start 08/12/18 at 09:00 Furosemide (Lasix) 40 mg DAILY PO Last administered on 09/13/18 09:12; Start 08/12/18 at 09:00; Stop 09/13/18 at 17:08; Status DC Insulin Human Lispro (HumaLOG) 5 units TIDWMEALS SQ Last administered on 17:54; Start 08/12/18 at 08:00 Insulin Glargine (Lantus) 10 units QHS SQ Last administered on 09/16/18 20:38 ; Start 08/11/18 at 23:00 Loperamide HCl (Imodium) 2 mg PRN Q6HRS PRN PO DIARRHEA; Start 08/11/18 at 22: 45 Non-Formulary Medication (Magnesium Hydroxide (Milk Of Magnesia)) 2,400 mg PRN DAILY PRN PO CONSTIPATION; Start 08/11/18 at 22:15; Status UNV Metformin HCl (Glucophage) 1,000 mg BIDWMEALS PO Last administered on 17:37; Start 08/12/18 at 08:00 Methotrexate (Rheumatrex) 15 mg WEEKLY PO Last administered on 09/15/18 08:41 ; Start 08/18/18 at 09:00 Multivitamins/ Calcium (Thera-M Plus) 1 tab DAILY PO Last administered on 08:04; Start 08/12/18 at 09:00 Glucose (Insta-Glucose) 15 gm PRN Q15MIN PRN PO LOW BLOOD SUGAR; Start at 08:15 Divalproex Sodium (Depakote Sprinkles) 500 mg BIDWMEALS PO ; Start 08/13/18 at 20:27; Stop 08/13/18 at 20:36; Status DC Duloxetine HCl (Cymbalta) 60 mg DAILY PO Last administered on 09/16/18 08:04; Start 08/14/18 at 09:00 Divalproex Sodium (Depakote Sprinkles) 500 mg BIDWMEALS PO Last administered on 09/16/18 17:37; Start 08/14/18 at 08:00 Risperidone (RisperDAL) 1.5 mg DAILY PO ; Start 08/14/18 at 19:00; Stop at 19:00; Status DC Risperidone (RisperDAL) 2 mg HS PO Last administered on 08/16/18at 18:51; Start 08/14/18 at 21:00; Stop 08/17/18 at 18:30; Status DC Risperidone (RisperDAL) 1.5 mg HS PO ; Start 08/18/18 at 21:00; Stop 08/18/18 at 21:00; Status DC Risperidone (RisperDAL) 1.5 mg DAILY PO Last administered on 08/17/18at 08:08; Start 08/15/18 at 09:00; Stop 08/17/18 at 18:30; Status DC Amantadine HCl (Symmetrel) 100 mg DAILY PO Last administered on 08/23/18 08:00 ; Start 08/17/18 at 09:00; Stop 08/23/18 at 21:37; Status DC Risperidone (RisperDAL) 1.5 mg BID PO Last administered on 08/19/18at 08:15; Start 08/17/18 at 21:00; Stop 08/19/18 at 15:58; Status DC Risperidone (RisperDAL) 1 mg BID PO Last administered on 08/22/18at 11:33; Start 08/19/18 at 21:00; Stop 08/22/18 at 17:30; Status DC Risperidone (RisperDAL) 1 mg QHS PO Last administered on 08/24/18 20:41; Start 08/22/18 at 21:00; Stop 08/25/18 at 18:41; Status DC Risperidone (RisperDAL) 0.5 mg DAILY PO Last administered on 08/25/18 11:14; Start 08/23/18 at 09:00; Stop 08/25/18 at 09:00; Status DC Amantadine HCl (Symmetrel) 100 mg BID PO Last administered on 09/16/18 20:34; Start 08/24/18 at 09:00 Risperidone (RisperDAL) 1.5 mg BID PO Last administered on 09/16/18 20:34; Start 08/26/18 at 09:00 Risperidone (RisperDAL) 2 mg HS PO Last administered on 08/25/18 20:03; Start 08/25/18 at 21:00; Stop 08/25/18 at 21:01; Status DC Trazodone HCl (Desyrel) 100 mg PRN QHS PRN PO INSOMNIA Last administered on 08/31 02:29; Start 08/30/18 at 18:45 Potassium Chloride (Klor-Con) 20 meq TID PO Last administered on 09/03/18 14: 25; Start 08/31/18 at 21:00; Stop 09/03/18 at 17:14; Status DC Doxycycline Hyclate (Vibra-Tab) 100 mg BID PO Last administered on 09/13/18 20 :13; Start 09/03/18 at 21:00; Stop 09/13/18 at 20:59; Status DC Lactobacillus Rhamnosus (Culturelle) 1 cap BID PO Last administered on 20:34; Start 09/03/18 at 21:00 Carvedilol (Coreg) 6.25 mg BIDWMEALS PO Last administered on 09/16/18 17:37; Start 09/04/18 at 17:00 Aspirin (Aspirin Enteric Coated) 81 mg DAILYWBKFT PO Last administered on 08:02; Start 09/14/18 at 08:00 Furosemide (Lasix) 40 mg BID PO Last administered on 09/15/18 08:36; Start at 21:00; Stop 09/15/18 at 11:23; Status DC Potassium Chloride (Klor-Con) 20 meq BID PO Last administered on 09/15/18at 08: 35; Start 09/13/18 at 21:00; Stop 09/15/18 at 11:23; Status DC Furosemide (Lasix) 40 mg DAILY PO Last administered on 09/16/18 08:09; Start 09/16/18 at 09:00 Potassium Chloride (Klor-Con) 20 meq DAILY PO Last administered on 09/16/18 08 :09; Start 09/16/18 at 09:00 Nystatin (Nystop) 1 yaima TID TP Last administered on 09/16/18at 20:36; Start at 21:00 Active Scripts Active Reported Xanax (Alprazolam) 0.5 Mg Tablet 0.5 Mg PO PRN Q6HRS PRN Hydrocodone-Apap 5-325 (Hydrocodone Bit/Acetaminophen) 1 Each Tablet 1 Tab PO PRN Q6HRS PRN Voltaren (Diclofenac Sodium) 100 Gm Gel..gram. 4 Gm TP QID Nystatin 15 Gm Powder 1 Yaima TP BID Tums (Calcium Carbonate) 200 Mg Tab.chew 2 Tab PO PRN Q6HRS PRN Nitrostat (Nitroglycerin) 0.4 Mg Tab.subl 0.4 Mg SL PRN Q5MIN PRN Milk Of Magnesia (Magnesium Hydroxide) 2,400 Mg/10 Ml Oral.susp 2,400 Mg PO PRN DAILY PRN Loperamide (Loperamide Hcl) 2 Mg Tablet 2 Mg PO PRN Q6HRS PRN Vitamin C (Ascorbic Acid) 500 Mg Tablet 500 Mg PO BIDWMEALS Risperdal (Risperidone) 2 Mg Tablet 2 Mg PO BIDWMEALS Mucinex (Guaifenesin) 600 Mg Tablet.er 600 Mg PO BIDWMEALS Metformin Hcl 1,000 Mg Tablet 1,000 Mg PO BIDWMEALS Cymbalta (Duloxetine Hcl) 60 Mg Capsule.dr 60 Mg PO BIDWMEALS Depakote Sprinkle (Divalproex Sodium) 125 Mg Cap.sprink 250 Mg PO BIDWMEALS Coreg (Carvedilol) 12.5 Mg Tablet 12.5 Mg PO BIDWMEALS Vitamin D3 (Cholecalciferol (Vitamin D3)) 1,000 Unit Tablet 2,000 Unit PO DAILY Trazodone Hcl 100 Mg Tablet 100 Mg PO HS Multivitamins (Multivitamin) 1 Each Tablet 1 Tab PO DAILY Methotrexate (Methotrexate Sodium) 2.5 Mg Tablet 15 Mg PO WEEKLY Lisinopril 10 Mg Tablet 10 Mg PO DAILY Levothyroxine Sodium 100 Mcg Tablet 100 Mcg PO DAILYAC Lasix (Furosemide) 40 Mg Tablet 40 Mg PO DAILY Folic Acid 1 Mg Tablet 1 Mg PO DAILY Allopurinol 100 Mg Tablet 100 Mg PO DAILY Novolog (Insulin Aspart) 100 Unit/1 Ml Vial 5 Unit SQ TIDWMEALS Levemir (Insulin Detemir) 100 Unit/1 Ml Vial 10 Unit SQ HS I have reviewed the current psychotropics carefully including drug interactions. Risk benefit ratio favors no change other than as noted in my dictated progress note. Diagnosis: Problems: (1) Anxiety disorder (2) Major depressive disorder, recurrent episode (3) Impulse control disorder (4) Dementia in Alzheimer's disease with delusions (5) Dementia in Alzheimer's disease with depression (6) Dementia, vascular, with delusions (7) Dementia, vascular, with depression KAITLIN DREW MD Sep 16, 2018 22:41
--- NOTE | 2018-09-16 23:00 | PN ---
DATE: 09/15/2018 PSYCHIATRIC PROGRESS NOTE This is a late entry of 09/15/2018 covers elements not covered in my initial note. SUBJECTIVE: I met with the patient in the evening and staffed at a treatment team meeting with the entire team in the morning. This patient's birthday is on 09/15/2020 and staff are celebrating with the special lunch and snacks. She is sleeping reasonably. Cardiac ejection fraction is 15% with mitral regurgitation, tricuspid regurgitation on echo and we will defer to Dr. Abrams in Cardiology for followup. 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 Communication is nonverbal and on the white board. No CV, , GI system symptoms on review. MENTAL STATUS EXAM: Oriented to herself and situation. Speech as above. Abstraction fair, computation impaired, language function intact, attention span short. Mood and affect are somewhat more interactive and less withdrawn. No active suicidal or homicidal ideation. LABORATORY DATA: Reviewed. IMPRESSION: Bipolar 1 disorder, mixed with psychotic features, in partial remission. Rest as above. PLAN: Continue psychotropics from initial note, with medical followup, with Dr. Abrams. MAN Vanesa DREW MD DR: STEFAN/satya JOB#: [id number] / [id number]
[2018-09-17] MEDS: LEVOTHYROXINE 100 MCG TABLET PO SCH (06:02)
[2018-09-17 06:31] VITALS: BP 114/57
[2018-09-17] MEDS: INSULIN LISPRO 300 UNITS/3 ML INSULN.PEN. SQ SCH ×3 (07:37→17:32)
[2018-09-17] MEDS: ASPIRIN ENTERIC COATED 81 MG TABLET.DR. PO SCH (07:50)
[2018-09-17] MEDS: CARVEDILOL 6.25 MG TABLET PO SCH ×2 (07:51→17:37)
[2018-09-17] MEDS: metFORMIN 500 MG TABLET PO SCH ×2 (07:53→17:39)
[2018-09-17] MEDS: DIVALPROEX 125 MG CAP.SPRINK PO SCH ×2 (07:53→17:38)
[2018-09-17] MEDS: LACTOBACILLUS RHAMNOSUS GG 1 CAPSULE. PO SCH ×2 (07:54→21:08)
[2018-09-17] MEDS: ASCORBIC ACID 500 MG TABLET PO SCH ×2 (07:54→17:38)
[2018-09-17] MEDS: FUROSEMIDE 40 MG TABLET PO SCH (07:55)
[2018-09-17] MEDS: POTASSIUM CHLORIDE 20 MEQ TABLET.ER. PO SCH (07:55)
[2018-09-17] MEDS: DULoxetine HCL 60 MG CAPSULE.DR PO SCH (07:55)
[2018-09-17] MEDS: FOLIC ACID 1 MG TABLET PO SCH (07:55)
[2018-09-17] MEDS: risperiDONE 0.5 MG TABLET. PO SCH ×2 (07:57→21:08)
[2018-09-17] MEDS: MULTIVITAMIN with MINERAL TABLET. PO SCH (08:00)
[2018-09-17] MEDS: ALLOPURINOL 100 MG TABLET. PO SCH (08:00)
[2018-09-17] MEDS: AMANTADINE HCL 100 MG CAPSULE PO SCH ×2 (08:00→21:09)
[2018-09-17] MEDS: CHOLECALCIFEROL (VITAMIN D3) 1,000 UNIT TABLET PO SCH (08:00)
[2018-09-17] MEDS: NYSTATIN TOPICAL POWDER 15GM BOTTLE. TP SCH ×3 (08:01→21:12)
[2018-09-17] MEDS: DICLOFENAC SODIUM 1% TOPICAL GEL 100GM TUBE. TP SCH ×4 (08:01→21:10)
[2018-09-17] MEDS: LISINOPRIL 10 MG TABLET PO SCH (09:00)
[2018-09-17 15:55] VITALS: BP 111/68
[2018-09-17] MEDS: traZODone 100 MG TABLET. PO SCH (21:08)
[2018-09-17] MEDS: INSULIN GLARGINE 300 UNITS/3 ML INSULN.PEN. SQ SCH (21:14)
--- NOTE | 2018-09-17 22:21 | PDOC ---
Exam Note: Johnnie Note: Please also refer to the separate dictated note~for this date of service dictated separately.~Patient seen individually. Discussed the patient with Nursing staff reviewed the chart.~Reviewed interim history and current functioning. Reviewed vital signs,~Labs/ Radiology~and current medications noted below. Continue current treatment with the changes noted in the dictated addendum note Assessment: Vital Signs: Vital Signs Date Time Temp Pulse Resp B/P (MAP) Pulse Ox O2 Delivery O2 Flow Rate FiO2 09/17/18 17:37 68 111/68 09/17/18 15:55 97.8 20 98 09/16/18 17:00 Room Air I&O Intake and Output 09/17/18 07:01 Intake Total 1200 ml Balance 1200 ml Intake Oral 1200 ml # Voids 1 Labs: Laboratory Tests Test 09/17/18 07:11 09/17/18 11:38 09/17/18 17:20 09/17/18 19:33 Glucose (Fingerstick) 89 mg/dL (70-99) 160 mg/dL (70-99) H 151 mg/dL (70-99) H 154 mg/dL (70-99) H Current Medications: Meds: Current Medications Acetaminophen (Tylenol) 650 mg PRN Q6HRS PRN PO PAIN / TEMP Last administered on 09/12/18at 02:17; Start 08/11/18 at 21:00 Multi-Ingredient Ointment (Analgesic [place]) 1 yaima PRN QID PRN TP MUSCLE PAIN; Start 08/11/18 at 21:00 Al Hydroxide/Mg Hydroxide (Mylanta Plus Xs) 15 ml PRN AFTMEALHC PRN PO DYSPEPSIA; Start 08/11/18 at 21:00 Magnesium Hydroxide (Milk Of Magnesia) 2,400 mg PRN QHS PRN PO CONSTIPATION; Start 08/11/18 at 21:00 Alprazolam (Xanax) 0.5 mg PRN Q6HRS PRN PO ANXIETY / AGITATION Last administered on 08/21/18at 20:06; Start 08/11/18 at 22:30 Divalproex Sodium (Depakote Sprinkles) 250 mg BIDWMEALS PO Last administered on 08/13/18at 18:08; Start 08/12/18 at 08:00; Stop 08/13/18 at 20:26; Status DC Duloxetine HCl (Cymbalta) 60 mg BIDWMEALS PO Last administered on 08/13/18at 18 :08; Start 08/12/18 at 08:00; Stop 08/13/18 at 20:26; Status DC Risperidone (RisperDAL) 2 mg BIDWMEALS PO Last administered on 08/14/18at 17:45 ; Start 08/12/18 at 08:00; Stop 08/14/18 at 18:45; Status DC Trazodone HCl (Desyrel) 100 mg HS PO Last administered on 09/17/18 21:08; Start 08/11/18 at 22:30 Ascorbic Acid (Vitamin C) 500 mg BIDWMEALS PO Last administered on 09/17/18 17 :38; Start 08/12/18 at 08:00 Calcium Carbonate/ Glycine (Tums) 500 mg PRN Q6HRS PRN PO INDIGESTION; Start 08/11/18 at 22:15 Vitamin D (Vitamin D3) 2,000 unit DAILY PO Last administered on 09/17/18 08:00 ; Start 08/12/18 at 09:00 Diclofenac Sodium (Voltaren) 1 yaima QID TP Last administered on 09/17/18 21:10 ; Start 08/12/18 at 09:00 Guaifenesin (Mucinex Er) 600 mg BIDWMEALS PO Last administered on 09/17/18 17: 38; Start 08/12/18 at 08:00 Acetaminophen/ Hydrocodone Bitart (Lortab 5/325) 1 tab PRN Q6HRS PRN PO PAIN Last administered on 09/08/18 17:32; Start 08/11/18 at 22:15 Levothyroxine Sodium (Synthroid) 100 mcg DAILY06 PO Last administered on 06:02; Start 08/12/18 at 06:00 Lisinopril (Prinivil) 10 mg DAILY PO Last administered on 09/15/18 08:35; Start 08/12/18 at 09:00 Nitroglycerin (Nitrostat) 0.4 mg PRN Q5MIN PRN SL CHEST PAIN; Start 08/11/18 at 22:15 Nystatin (Nystop) 1 yaima BID TP Last administered on 09/15/18 08:38; Start at 09:00; Stop 09/15/18 at 14:19; Status DC Allopurinol (Zyloprim) 100 mg DAILY PO Last administered on 09/17/18 08:00; Start 08/12/18 at 09:00 Carvedilol (Coreg) 12.5 mg BIDWMEALS PO Last administered on 09/03/18 08:42; Start 08/12/18 at 08:00; Stop 09/04/18 at 11:25; Status DC Folic Acid (Folic Acid) 1 mg DAILY PO Last administered on 09/17/18 07:55; Start 08/12/18 at 09:00 Furosemide (Lasix) 40 mg DAILY PO Last administered on 09/13/18 09:12; Start 08/12/18 at 09:00; Stop 09/13/18 at 17:08; Status DC Insulin Human Lispro (HumaLOG) 5 units TIDWMEALS SQ Last administered on 17:32; Start 08/12/18 at 08:00 Insulin Glargine (Lantus) 10 units QHS SQ Last administered on 09/17/18 21:14 ; Start 08/11/18 at 23:00 Loperamide HCl (Imodium) 2 mg PRN Q6HRS PRN PO DIARRHEA; Start 08/11/18 at 22: 45 Non-Formulary Medication (Magnesium Hydroxide (Milk Of Magnesia)) 2,400 mg PRN DAILY PRN PO CONSTIPATION; Start 08/11/18 at 22:15; Status UNV Metformin HCl (Glucophage) 1,000 mg BIDWMEALS PO Last administered on 17:39; Start 08/12/18 at 08:00 Methotrexate (Rheumatrex) 15 mg WEEKLY PO Last administered on 09/15/18 08:41 ; Start 08/18/18 at 09:00 Multivitamins/ Calcium (Thera-M Plus) 1 tab DAILY PO Last administered on 08:00; Start 08/12/18 at 09:00 Glucose (Insta-Glucose) 15 gm PRN Q15MIN PRN PO LOW BLOOD SUGAR; Start at 08:15 Divalproex Sodium (Depakote Sprinkles) 500 mg BIDWMEALS PO ; Start 08/13/18 at 20:27; Stop 08/13/18 at 20:36; Status DC Duloxetine HCl (Cymbalta) 60 mg DAILY PO Last administered on 09/17/18at 07:55; Start 08/14/18 at 09:00 Divalproex Sodium (Depakote Sprinkles) 500 mg BIDWMEALS PO Last administered on 09/17/18at 17:38; Start 08/14/18 at 08:00 Risperidone (RisperDAL) 1.5 mg DAILY PO ; Start 08/14/18 at 19:00; Stop at 19:00; Status DC Risperidone (RisperDAL) 2 mg HS PO Last administered on 08/16/18at 18:51; Start 08/14/18 at 21:00; Stop 08/17/18 at 18:30; Status DC Risperidone (RisperDAL) 1.5 mg HS PO ; Start 08/18/18 at 21:00; Stop 08/18/18 at 21:00; Status DC Risperidone (RisperDAL) 1.5 mg DAILY PO Last administered on 08/17/18at 08:08; Start 08/15/18 at 09:00; Stop 08/17/18 at 18:30; Status DC Amantadine HCl (Symmetrel) 100 mg DAILY PO Last administered on 08/23/18at 08:00 ; Start 08/17/18 at 09:00; Stop 08/23/18 at 21:37; Status DC Risperidone (RisperDAL) 1.5 mg BID PO Last administered on 08/19/18at 08:15; Start 08/17/18 at 21:00; Stop 08/19/18 at 15:58; Status DC Risperidone (RisperDAL) 1 mg BID PO Last administered on 08/22/18at 11:33; Start 08/19/18 at 21:00; Stop 08/22/18 at 17:30; Status DC Risperidone (RisperDAL) 1 mg QHS PO Last administered on 08/24/18at 20:41; Start 08/22/18 at 21:00; Stop 08/25/18 at 18:41; Status DC Risperidone (RisperDAL) 0.5 mg DAILY PO Last administered on 08/25/18at 11:14; Start 08/23/18 at 09:00; Stop 08/25/18 at 09:00; Status DC Amantadine HCl (Symmetrel) 100 mg BID PO Last administered on 09/17/18 21:09; Start 08/24/18 at 09:00 Risperidone (RisperDAL) 1.5 mg BID PO Last administered on 09/17/18 21:08; Start 08/26/18 at 09:00 Risperidone (RisperDAL) 2 mg HS PO Last administered on 08/25/18 20:03; Start 08/25/18 at 21:00; Stop 08/25/18 at 21:01; Status DC Trazodone HCl (Desyrel) 100 mg PRN QHS PRN PO INSOMNIA Last administered on 08/31at 02:29; Start 08/30/18 at 18:45 Potassium Chloride (Klor-Con) 20 meq TID PO Last administered on 09/03/18at 14: 25; Start 08/31/18 at 21:00; Stop 09/03/18 at 17:14; Status DC Doxycycline Hyclate (Vibra-Tab) 100 mg BID PO Last administered on 09/13/18at 20 :13; Start 09/03/18 at 21:00; Stop 09/13/18 at 20:59; Status DC Lactobacillus Rhamnosus (Culturelle) 1 cap BID PO Last administered on at 21:08; Start 09/03/18 at 21:00 Carvedilol (Coreg) 6.25 mg BIDWMEALS PO Last administered on 09/17/18at 17:37; Start 09/04/18 at 17:00 Aspirin (Aspirin Enteric Coated) 81 mg DAILYWBKFT PO Last administered on at 07:50; Start 09/14/18 at 08:00 Furosemide (Lasix) 40 mg BID PO Last administered on 09/15/18 08:36; Start at 21:00; Stop 09/15/18 at 11:23; Status DC Potassium Chloride (Klor-Con) 20 meq BID PO Last administered on 09/15/18 08: 35; Start 09/13/18 at 21:00; Stop 09/15/18 at 11:23; Status DC Furosemide (Lasix) 40 mg DAILY PO Last administered on 09/17/18at 07:55; Start 09/16/18 at 09:00 Potassium Chloride (Klor-Con) 20 meq DAILY PO Last administered on 09/17/18at 07 :55; Start 09/16/18 at 09:00 Nystatin (Nystop) 1 yaima TID TP Last administered on 09/17/18at 21:12; Start at 21:00 Active Scripts Active Reported Xanax (Alprazolam) 0.5 Mg Tablet 0.5 Mg PO PRN Q6HRS PRN Hydrocodone-Apap 5-325 (Hydrocodone Bit/Acetaminophen) 1 Each Tablet 1 Tab PO PRN Q6HRS PRN Voltaren (Diclofenac Sodium) 100 Gm Gel..gram. 4 Gm TP QID Nystatin 15 Gm Powder 1 Yaima TP BID Tums (Calcium Carbonate) 200 Mg Tab.chew 2 Tab PO PRN Q6HRS PRN Nitrostat (Nitroglycerin) 0.4 Mg Tab.subl 0.4 Mg SL PRN Q5MIN PRN Milk Of Magnesia (Magnesium Hydroxide) 2,400 Mg/10 Ml Oral.susp 2,400 Mg PO PRN DAILY PRN Loperamide (Loperamide Hcl) 2 Mg Tablet 2 Mg PO PRN Q6HRS PRN Vitamin C (Ascorbic Acid) 500 Mg Tablet 500 Mg PO BIDWMEALS Risperdal (Risperidone) 2 Mg Tablet 2 Mg PO BIDWMEALS Mucinex (Guaifenesin) 600 Mg Tablet.er 600 Mg PO BIDWMEALS Metformin Hcl 1,000 Mg Tablet 1,000 Mg PO BIDWMEALS Cymbalta (Duloxetine Hcl) 60 Mg Capsule.dr 60 Mg PO BIDWMEALS Depakote Sprinkle (Divalproex Sodium) 125 Mg Cap.sprink 250 Mg PO BIDWMEALS Coreg (Carvedilol) 12.5 Mg Tablet 12.5 Mg PO BIDWMEALS Vitamin D3 (Cholecalciferol (Vitamin D3)) 1,000 Unit Tablet 2,000 Unit PO DAILY Trazodone Hcl 100 Mg Tablet 100 Mg PO HS Multivitamins (Multivitamin) 1 Each Tablet 1 Tab PO DAILY Methotrexate (Methotrexate Sodium) 2.5 Mg Tablet 15 Mg PO WEEKLY Lisinopril 10 Mg Tablet 10 Mg PO DAILY Levothyroxine Sodium 100 Mcg Tablet 100 Mcg PO DAILYAC Lasix (Furosemide) 40 Mg Tablet 40 Mg PO DAILY Folic Acid 1 Mg Tablet 1 Mg PO DAILY Allopurinol 100 Mg Tablet 100 Mg PO DAILY Novolog (Insulin Aspart) 100 Unit/1 Ml Vial 5 Unit SQ TIDWMEALS Levemir (Insulin Detemir) 100 Unit/1 Ml Vial 10 Unit SQ HS I have reviewed the current psychotropics carefully including drug interactions. Risk benefit ratio favors no change other than as noted in my dictated progress note. Diagnosis: Problems: (1) Anxiety disorder (2) Major depressive disorder, recurrent episode (3) Impulse control disorder (4) Dementia in Alzheimer's disease with delusions (5) Dementia in Alzheimer's disease with depression (6) Dementia, vascular, with delusions (7) Dementia, vascular, with depression KAITLIN DREW MD Sep 17, 2018 22:20
--- NOTE | 2018-09-18 01:34 | PN ---
DATE: 09/16/2018 PSYCHIATRIC PROGRESS NOTE This is a late entry of 09/16/2018, covers elements not covered in my initial note. SUBJECTIVE: I met with the patient in the evening. The patient slept 7-1/4 hours previous evening. She did have a swallow study on 09/16/2018, report awaited. She has been a little more interactive. REVIEW OF SYSTEMS: Cannot hear her and she is unable to speak and verbal communication is not possible. Most communication is nonverbal and writing through the white board. No CV, , pulmonary, eye system symptoms on review. MENTAL STATUS EXAM: Oriented to herself and situation. Speech is as noted, abstraction fair. Computation difficult to assess. Language function intact. Attention span short. Mood and affect, generally improved, less anxious, labile. LABORATORY DATA: Reviewed. IMPRESSION: Unchanged from initial note. PLAN: No change from initial note. MAN Vanesa DREW MD DR: STEFAN/satya JOB#: [id number] / [id number]
[2018-09-18 06:00] VITALS: BP 93/52
[2018-09-18] MEDS: LEVOTHYROXINE 100 MCG TABLET PO SCH (06:01)
[2018-09-18] MEDS: INSULIN LISPRO 300 UNITS/3 ML INSULN.PEN. SQ SCH ×3 (07:52→17:28)
[2018-09-18] MEDS: CARVEDILOL 6.25 MG TABLET PO SCH ×2 (08:09→17:36)
[2018-09-18] MEDS: ASPIRIN ENTERIC COATED 81 MG TABLET.DR. PO SCH (08:09)
[2018-09-18] MEDS: ASCORBIC ACID 500 MG TABLET PO SCH ×2 (08:10→17:37)
[2018-09-18] MEDS: metFORMIN 500 MG TABLET PO SCH ×2 (08:10→17:36)
[2018-09-18] MEDS: LACTOBACILLUS RHAMNOSUS GG 1 CAPSULE. PO SCH ×2 (08:10→21:59)
[2018-09-18] MEDS: DIVALPROEX 125 MG CAP.SPRINK PO SCH ×2 (08:10→17:36)
[2018-09-18] MEDS: DULoxetine HCL 60 MG CAPSULE.DR PO SCH (08:10)
[2018-09-18] MEDS: POTASSIUM CHLORIDE 20 MEQ TABLET.ER. PO SCH (08:11)
[2018-09-18] MEDS: FOLIC ACID 1 MG TABLET PO SCH (08:11)
[2018-09-18] MEDS: FUROSEMIDE 40 MG TABLET PO SCH (08:12)
[2018-09-18] MEDS: ALLOPURINOL 100 MG TABLET. PO SCH (08:13)
[2018-09-18] MEDS: AMANTADINE HCL 100 MG CAPSULE PO SCH ×2 (08:13→22:00)
[2018-09-18] MEDS: CHOLECALCIFEROL (VITAMIN D3) 1,000 UNIT TABLET PO SCH (08:13)
[2018-09-18] MEDS: MULTIVITAMIN with MINERAL TABLET. PO SCH (08:13)
[2018-09-18] MEDS: risperiDONE 0.5 MG TABLET. PO SCH ×2 (08:13→21:59)
[2018-09-18] MEDS: DICLOFENAC SODIUM 1% TOPICAL GEL 100GM TUBE. TP SCH ×4 (08:14→22:00)
[2018-09-18] MEDS: NYSTATIN TOPICAL POWDER 15GM BOTTLE. TP SCH ×3 (08:14→21:58)
[2018-09-18 08:34] LABS: BASO % 1 % (0-3); EOS # 0.1 x10^3/uL (0.0-0.7); EOS % 3 % (0-3); HEMATOCRIT 39.4 % (36.0-47.0); HEMOGLOBIN 12.9 g/dL (12.0-15.5); LYMPH # 1.9 x10^3/uL (1.0-4.8); LYMPH % 49 % (24-48); MEAN CORPUSCULAR HEMOGLOBIN 32 pg (25-35); MEAN CORPUSCULAR HGB CONC 33 g/dL (31-37); MEAN CORPUSCULAR VOLUME 97 fL (79-100); MONO # 0.1 x10^3/uL (0.0-1.1); MONO % 3 % (0-9); NEUT # 1.8 x10^3uL (1.8-7.7); NEUT % 45 % (31-73); PLATELET COUNT 161 x10^3/uL (140-400); RED BLOOD COUNT 4.05 x10^6/uL (3.50-5.40); RED CELL DISTRIBUTION WIDTH 18.9 % (11.5-14.5); WHITE BLOOD COUNT 3.9 x10^3/uL (4.0-11.0)
[2018-09-18 08:51] LABS: ALBUMIN 2.8 g/dL (3.4-5.0); ALBUMIN/GLOBULIN RATIO 0.7 (1.0-1.7); CALCIUM 9.1 mg/dL (8.5-10.1); CREATININE 1.2 mg/dL (0.6-1.0); GFR 45.8; POTASSIUM 4.1 mmol/L (3.5-5.1); TOTAL BILIRUBIN 0.7 mg/dL (0.2-1.0)
[2018-09-18] MEDS: LISINOPRIL 10 MG TABLET PO SCH (09:00)
[2018-09-18 16:17] VITALS: BP 134/78
[2018-09-18 16:24] LABS: COLOR,URINE YELLOW
[2018-09-18 16:25] LABS: BILIRUBIN,URINE NEG (NEG); CLARITY,URINE CLEAR; GLUCOSE,URINE NEG (NEG)
[2018-09-18 16:26] LABS: BACTERIA,URINE FEW /HPF (0-FEW); NITRITE,URINE NEG (NEG); RBC,URINE OCC /HPF (0-2); SQUAMOUS EPITHELIAL CELL,UR MOD /LPF; UROBILINOGEN,URINE 1 mg/dL (0.2 mg/dL); WBC,URINE OCC /HPF (0-4)
[2018-09-18] MEDS: traZODone 100 MG TABLET. PO SCH (21:58)
[2018-09-18] MEDS: INSULIN GLARGINE 300 UNITS/3 ML INSULN.PEN. SQ SCH (22:01)
--- NOTE | 2018-09-18 23:01 | PDOC ---
Exam Note: Johnnie Note: Please also refer to the separate dictated note~for this date of service dictated separately.~Patient seen individually. Discussed the patient with Nursing staff reviewed the chart.~Reviewed interim history and current functioning. Reviewed vital signs,~Labs/ Radiology~and current medications noted below. Continue current treatment with the changes noted in the dictated addendum note Assessment: Vital Signs: Vital Signs Date Time Temp Pulse Resp B/P (MAP) Pulse Ox O2 Delivery O2 Flow Rate FiO2 09/18/18 17:36 68 134/78 09/18/18 16:17 97.8 18 96 09/16/18 17:00 Room Air I&O Intake and Output 09/18/18 07:01 Intake Total 1260 ml Balance 1260 ml Intake Oral 1260 ml # Voids 1 # Bowel Movements 1 Labs: Laboratory Tests Test 09/18/18 07:07 09/18/18 08:10 09/18/18 11:54 09/18/18 15:55 Glucose (Fingerstick) 89 mg/dL (70-99) 96 mg/dL (70-99) White Blood Count 3.9 x10^3/uL (4.0-11.0) L Red Blood Count 4.05 x10^6/uL (3.50-5.40) Hemoglobin 12.9 g/dL (12.0-15.5) Hematocrit 39.4 % (36.0-47.0) Mean Corpuscular Volume 97 fL (79-100) Mean Corpuscular Hemoglobin 32 pg (25-35) Mean Corpuscular Hemoglobin Concent 33 g/dL (31-37) Red Cell Distribution Width 18.9 % (11.5-14.5) H Platelet Count 161 x10^3/uL (140-400) Neutrophils (%) (Auto) 45 % (31-73) Lymphocytes (%) (Auto) 49 % (24-48) H Monocytes (%) (Auto) 3 % (0-9) Eosinophils (%) (Auto) 3 % (0-3) Basophils (%) (Auto) 1 % (0-3) Neutrophils # (Auto) 1.8 x10^3uL (1.8-7.7) Lymphocytes # (Auto) 1.9 x10^3/uL (1.0-4.8) Monocytes # (Auto) 0.1 x10^3/uL (0.0-1.1) Eosinophils # (Auto) 0.1 x10^3/uL (0.0-0.7) Basophils # (Auto) 0.0 x10^3/uL (0.0-0.2) Sodium Level 139 mmol/L (136-145) Potassium Level 4.1 mmol/L (3.5-5.1) Chloride Level 99 mmol/L (98-107) Carbon Dioxide Level 33 mmol/L (21-32) H Anion Gap 7 (6-14) Blood Urea Nitrogen 18 mg/dL (7-20) Creatinine 1.2 mg/dL (0.6-1.0) H Estimated GFR (Cockcroft-Gault) 45.8 BUN/Creatinine Ratio 15 (6-20) Glucose Level 131 mg/dL (70-99) H Calcium Level 9.1 mg/dL (8.5-10.1) Total Bilirubin 0.7 mg/dL (0.2-1.0) Aspartate Amino Transferase (AST) 27 U/L (15-37) Alanine Aminotransferase (ALT) 21 U/L (14-59) Alkaline Phosphatase 84 U/L (46-116) Total Protein 7.0 g/dL (6.4-8.2) Albumin 2.8 g/dL (3.4-5.0) L Albumin/Globulin Ratio 0.7 (1.0-1.7) L Urine Collection Type Unknown Urine Color Yellow Urine Clarity Clear Urine pH 7.5 Urine Specific [place] 1.015 Urine Protein Trace (NEG-TRACE) Urine Glucose (UA) Neg mg/dL (NEG) Urine Ketones (Stick) 15 mg/dL (NEG) Urine Blood Neg (NEG) Urine Nitrite Neg (NEG) Urine Bilirubin Neg (NEG) Urine Urobilinogen Dipstick 1 mg/dL (0.2 mg/dL) Urine Leukocyte Esterase Neg (NEG) Urine RBC Occ /HPF (0-2) Urine WBC Occ /HPF (0-4) Urine Squamous Epithelial Cells Mod /LPF Urine Bacteria Few /HPF (0-FEW) Test 09/18/18 16:26 09/18/18 19:16 Glucose (Fingerstick) 103 mg/dL (70-99) H 135 mg/dL (70-99) H Current Medications: Meds: Current Medications Acetaminophen (Tylenol) 650 mg PRN Q6HRS PRN PO PAIN / TEMP Last administered on 09/12/18 02:17; Start 08/11/18 at 21:00 Multi-Ingredient Ointment (Analgesic [place]) 1 yaima PRN QID PRN TP MUSCLE PAIN; Start 08/11/18 at 21:00 Al Hydroxide/Mg Hydroxide (Mylanta Plus Xs) 15 ml PRN AFTMEALHC PRN PO DYSPEPSIA; Start 08/11/18 at 21:00 Magnesium Hydroxide (Milk Of Magnesia) 2,400 mg PRN QHS PRN PO CONSTIPATION; Start 08/11/18 at 21:00 Alprazolam (Xanax) 0.5 mg PRN Q6HRS PRN PO ANXIETY / AGITATION Last administered on 08/21/18at 20:06; Start 08/11/18 at 22:30 Divalproex Sodium (Depakote Sprinkles) 250 mg BIDWMEALS PO Last administered on 08/13/18at 18:08; Start 08/12/18 at 08:00; Stop 08/13/18 at 20:26; Status DC Duloxetine HCl (Cymbalta) 60 mg BIDWMEALS PO Last administered on 08/13/18at 18 :08; Start 08/12/18 at 08:00; Stop 08/13/18 at 20:26; Status DC Risperidone (RisperDAL) 2 mg BIDWMEALS PO Last administered on 08/14/18at 17:45 ; Start 08/12/18 at 08:00; Stop 08/14/18 at 18:45; Status DC Trazodone HCl (Desyrel) 100 mg HS PO Last administered on 09/18/18 21:58; Start 08/11/18 at 22:30 Ascorbic Acid (Vitamin C) 500 mg BIDWMEALS PO Last administered on 09/18/18 17 :37; Start 08/12/18 at 08:00 Calcium Carbonate/ Glycine (Tums) 500 mg PRN Q6HRS PRN PO INDIGESTION; Start 08/11/18 at 22:15 Vitamin D (Vitamin D3) 2,000 unit DAILY PO Last administered on 09/18/18 08:13 ; Start 08/12/18 at 09:00 Diclofenac Sodium (Voltaren) 1 yaima QID TP Last administered on 09/18/18 22:00 ; Start 08/12/18 at 09:00 Guaifenesin (Mucinex Er) 600 mg BIDWMEALS PO Last administered on 09/18/18 17: 36; Start 08/12/18 at 08:00 Acetaminophen/ Hydrocodone Bitart (Lortab 5/325) 1 tab PRN Q6HRS PRN PO PAIN Last administered on 09/08/18 17:32; Start 08/11/18 at 22:15 Levothyroxine Sodium (Synthroid) 100 mcg DAILY06 PO Last administered on 06:01; Start 08/12/18 at 06:00 Lisinopril (Prinivil) 10 mg DAILY PO Last administered on 09/15/18 08:35; Start 08/12/18 at 09:00 Nitroglycerin (Nitrostat) 0.4 mg PRN Q5MIN PRN SL CHEST PAIN; Start 08/11/18 at 22:15 Nystatin (Nystop) 1 yaima BID TP Last administered on 09/15/18 08:38; Start at 09:00; Stop 09/15/18 at 14:19; Status DC Allopurinol (Zyloprim) 100 mg DAILY PO Last administered on 09/18/18 08:13; Start 08/12/18 at 09:00 Carvedilol (Coreg) 12.5 mg BIDWMEALS PO Last administered on 09/03/18 08:42; Start 08/12/18 at 08:00; Stop 09/04/18 at 11:25; Status DC Folic Acid (Folic Acid) 1 mg DAILY PO Last administered on 09/18/18 08:11; Start 08/12/18 at 09:00 Furosemide (Lasix) 40 mg DAILY PO Last administered on 09/13/18 09:12; Start 08/12/18 at 09:00; Stop 09/13/18 at 17:08; Status DC Insulin Human Lispro (HumaLOG) 5 units TIDWMEALS SQ Last administered on 17:28; Start 08/12/18 at 08:00 Insulin Glargine (Lantus) 10 units QHS SQ Last administered on 09/18/18 22:01 ; Start 08/11/18 at 23:00 Loperamide HCl (Imodium) 2 mg PRN Q6HRS PRN PO DIARRHEA; Start 08/11/18 at 22: 45 Non-Formulary Medication (Magnesium Hydroxide (Milk Of Magnesia)) 2,400 mg PRN DAILY PRN PO CONSTIPATION; Start 08/11/18 at 22:15; Status UNV Metformin HCl (Glucophage) 1,000 mg BIDWMEALS PO Last administered on 17:36; Start 08/12/18 at 08:00 Methotrexate (Rheumatrex) 15 mg WEEKLY PO Last administered on 09/15/18 08:41 ; Start 08/18/18 at 09:00 Multivitamins/ Calcium (Thera-M Plus) 1 tab DAILY PO Last administered on 08:13; Start 08/12/18 at 09:00 Glucose (Insta-Glucose) 15 gm PRN Q15MIN PRN PO LOW BLOOD SUGAR; Start at 08:15 Divalproex Sodium (Depakote Sprinkles) 500 mg BIDWMEALS PO ; Start 08/13/18 at 20:27; Stop 08/13/18 at 20:36; Status DC Duloxetine HCl (Cymbalta) 60 mg DAILY PO Last administered on 09/18/18 08:10; Start 08/14/18 at 09:00 Divalproex Sodium (Depakote Sprinkles) 500 mg BIDWMEALS PO Last administered on 09/18/18 17:36; Start 08/14/18 at 08:00 Risperidone (RisperDAL) 1.5 mg DAILY PO ; Start 08/14/18 at 19:00; Stop at 19:00; Status DC Risperidone (RisperDAL) 2 mg HS PO Last administered on 08/16/18at 18:51; Start 08/14/18 at 21:00; Stop 08/17/18 at 18:30; Status DC Risperidone (RisperDAL) 1.5 mg HS PO ; Start 08/18/18 at 21:00; Stop 08/18/18 at 21:00; Status DC Risperidone (RisperDAL) 1.5 mg DAILY PO Last administered on 08/17/18at 08:08; Start 08/15/18 at 09:00; Stop 08/17/18 at 18:30; Status DC Amantadine HCl (Symmetrel) 100 mg DAILY PO Last administered on 08/23/18at 08:00 ; Start 08/17/18 at 09:00; Stop 08/23/18 at 21:37; Status DC Risperidone (RisperDAL) 1.5 mg BID PO Last administered on 08/19/18at 08:15; Start 08/17/18 at 21:00; Stop 08/19/18 at 15:58; Status DC Risperidone (RisperDAL) 1 mg BID PO Last administered on 08/22/18at 11:33; Start 08/19/18 at 21:00; Stop 08/22/18 at 17:30; Status DC Risperidone (RisperDAL) 1 mg QHS PO Last administered on 08/24/18at 20:41; Start 08/22/18 at 21:00; Stop 08/25/18 at 18:41; Status DC Risperidone (RisperDAL) 0.5 mg DAILY PO Last administered on 08/25/18 11:14; Start 08/23/18 at 09:00; Stop 08/25/18 at 09:00; Status DC Amantadine HCl (Symmetrel) 100 mg BID PO Last administered on 09/18/18at 22:00; Start 08/24/18 at 09:00 Risperidone (RisperDAL) 1.5 mg BID PO Last administered on 09/18/18at 21:59; Start 08/26/18 at 09:00 Risperidone (RisperDAL) 2 mg HS PO Last administered on 08/25/18 20:03; Start 08/25/18 at 21:00; Stop 08/25/18 at 21:01; Status DC Trazodone HCl (Desyrel) 100 mg PRN QHS PRN PO INSOMNIA Last administered on 08/31 02:29; Start 08/30/18 at 18:45 Potassium Chloride (Klor-Con) 20 meq TID PO Last administered on 09/03/18 14: 25; Start 08/31/18 at 21:00; Stop 09/03/18 at 17:14; Status DC Doxycycline Hyclate (Vibra-Tab) 100 mg BID PO Last administered on 09/13/18 20 :13; Start 09/03/18 at 21:00; Stop 09/13/18 at 20:59; Status DC Lactobacillus Rhamnosus (Culturelle) 1 cap BID PO Last administered on at 21:59; Start 09/03/18 at 21:00 Carvedilol (Coreg) 6.25 mg BIDWMEALS PO Last administered on 09/18/18 17:36; Start 09/04/18 at 17:00 Aspirin (Aspirin Enteric Coated) 81 mg DAILYWBKFT PO Last administered on 08:09; Start 09/14/18 at 08:00 Furosemide (Lasix) 40 mg BID PO Last administered on 09/15/18 08:36; Start at 21:00; Stop 09/15/18 at 11:23; Status DC Potassium Chloride (Klor-Con) 20 meq BID PO Last administered on 09/15/18 08: 35; Start 09/13/18 at 21:00; Stop 09/15/18 at 11:23; Status DC Furosemide (Lasix) 40 mg DAILY PO Last administered on 09/18/18 08:12; Start 09/16/18 at 09:00 Potassium Chloride (Klor-Con) 20 meq DAILY PO Last administered on 09/18/18at 08 :11; Start 09/16/18 at 09:00 Nystatin (Nystop) 1 yaima TID TP Last administered on 09/18/18at 21:58; Start at 21:00 Active Scripts Active Reported Xanax (Alprazolam) 0.5 Mg Tablet 0.5 Mg PO PRN Q6HRS PRN Hydrocodone-Apap 5-325 (Hydrocodone Bit/Acetaminophen) 1 Each Tablet 1 Tab PO PRN Q6HRS PRN Voltaren (Diclofenac Sodium) 100 Gm Gel..gram. 4 Gm TP QID Nystatin 15 Gm Powder 1 Yaima TP BID Tums (Calcium Carbonate) 200 Mg Tab.chew 2 Tab PO PRN Q6HRS PRN Nitrostat (Nitroglycerin) 0.4 Mg Tab.subl 0.4 Mg SL PRN Q5MIN PRN Milk Of Magnesia (Magnesium Hydroxide) 2,400 Mg/10 Ml Oral.susp 2,400 Mg PO PRN DAILY PRN Loperamide (Loperamide Hcl) 2 Mg Tablet 2 Mg PO PRN Q6HRS PRN Vitamin C (Ascorbic Acid) 500 Mg Tablet 500 Mg PO BIDWMEALS Risperdal (Risperidone) 2 Mg Tablet 2 Mg PO BIDWMEALS Mucinex (Guaifenesin) 600 Mg Tablet.er 600 Mg PO BIDWMEALS Metformin Hcl 1,000 Mg Tablet 1,000 Mg PO BIDWMEALS Cymbalta (Duloxetine Hcl) 60 Mg Capsule.dr 60 Mg PO BIDWMEALS Depakote Sprinkle (Divalproex Sodium) 125 Mg Cap.sprink 250 Mg PO BIDWMEALS Coreg (Carvedilol) 12.5 Mg Tablet 12.5 Mg PO BIDWMEALS Vitamin D3 (Cholecalciferol (Vitamin D3)) 1,000 Unit Tablet 2,000 Unit PO DAILY Trazodone Hcl 100 Mg Tablet 100 Mg PO HS Multivitamins (Multivitamin) 1 Each Tablet 1 Tab PO DAILY Methotrexate (Methotrexate Sodium) 2.5 Mg Tablet 15 Mg PO WEEKLY Lisinopril 10 Mg Tablet 10 Mg PO DAILY Levothyroxine Sodium 100 Mcg Tablet 100 Mcg PO DAILYAC Lasix (Furosemide) 40 Mg Tablet 40 Mg PO DAILY Folic Acid 1 Mg Tablet 1 Mg PO DAILY Allopurinol 100 Mg Tablet 100 Mg PO DAILY Novolog (Insulin Aspart) 100 Unit/1 Ml Vial 5 Unit SQ TIDWMEALS Levemir (Insulin Detemir) 100 Unit/1 Ml Vial 10 Unit SQ HS I have reviewed the current psychotropics carefully including drug interactions. Risk benefit ratio favors no change other than as noted in my dictated progress note. Diagnosis: Problems: (1) Anxiety disorder (2) Major depressive disorder, recurrent episode (3) Impulse control disorder (4) Dementia in Alzheimer's disease with delusions (5) Dementia in Alzheimer's disease with depression (6) Dementia, vascular, with delusions (7) Dementia, vascular, with depression KAITLIN DREW MD Sep 18, 2018 23:01
[2018-09-19 06:07] VITALS: BP 94/62
[2018-09-19] MEDS: LEVOTHYROXINE 100 MCG TABLET PO SCH (06:13)
[2018-09-19] MEDS: INSULIN LISPRO 300 UNITS/3 ML INSULN.PEN. SQ SCH ×3 (08:00→17:00)
[2018-09-19] MEDS: FUROSEMIDE 40 MG TABLET PO SCH (08:15)
[2018-09-19] MEDS: ALLOPURINOL 100 MG TABLET. PO SCH (08:15)
[2018-09-19] MEDS: LISINOPRIL 10 MG TABLET PO SCH (08:16)
[2018-09-19] MEDS: DIVALPROEX 125 MG CAP.SPRINK PO SCH ×2 (08:16→17:49)
[2018-09-19] MEDS: risperiDONE 0.5 MG TABLET. PO SCH ×2 (08:16→20:00)
[2018-09-19] MEDS: metFORMIN 500 MG TABLET PO SCH ×2 (08:17→17:51)
[2018-09-19] MEDS: DULoxetine HCL 60 MG CAPSULE.DR PO SCH (08:17)
[2018-09-19] MEDS: LACTOBACILLUS RHAMNOSUS GG 1 CAPSULE. PO SCH ×2 (08:17→20:00)
[2018-09-19] MEDS: POTASSIUM CHLORIDE 20 MEQ TABLET.ER. PO SCH (08:17)
[2018-09-19] MEDS: FOLIC ACID 1 MG TABLET PO SCH (08:17)
[2018-09-19] MEDS: MULTIVITAMIN with MINERAL TABLET. PO SCH (08:17)
[2018-09-19] MEDS: AMANTADINE HCL 100 MG CAPSULE PO SCH ×2 (08:17→20:04)
[2018-09-19] MEDS: ASPIRIN ENTERIC COATED 81 MG TABLET.DR. PO SCH (08:18)
[2018-09-19] MEDS: CHOLECALCIFEROL (VITAMIN D3) 1,000 UNIT TABLET PO SCH (08:18)
[2018-09-19] MEDS: ASCORBIC ACID 500 MG TABLET PO SCH ×2 (08:18→17:51)
[2018-09-19] MEDS: NYSTATIN TOPICAL POWDER 15GM BOTTLE. TP SCH ×3 (08:19→20:03)
[2018-09-19] MEDS: CARVEDILOL 6.25 MG TABLET PO SCH ×2 (08:19→17:53)
[2018-09-19] MEDS: DICLOFENAC SODIUM 1% TOPICAL GEL 100GM TUBE. TP SCH ×4 (08:21→20:06)
[2018-09-19 15:47] VITALS: BP 103/68
[2018-09-19] MEDS: traZODone 100 MG TABLET. PO SCH (20:00)
[2018-09-19] MEDS: INSULIN GLARGINE 300 UNITS/3 ML INSULN.PEN. SQ SCH (20:05)
--- NOTE | 2018-09-19 22:02 | PN ---
DATE: 09/18/2018 This is a late entry for 09/18/2018 covers elements not covered in my initial note. SUBJECTIVE: I met with the patient in the evening. The patient slept 7-1/4 hours previous night. She remains somewhat withdrawn, but appropriate. REVIEW OF SYSTEMS: She is unable to hear or speak and communication is nonverbal or on the white board. Creatinine is 1.2. No CV, , pulmonary, eye system symptoms on review. MENTAL STATUS EXAM: Oriented to herself, situations. Speech as above. Abstraction fair, computation impaired, language function as above. No active suicidal or homicidal ideation. Mood and affect is improved. LABORATORY DATA: Reviewed. IMPRESSION: Bipolar 1 disorder, mixed with psychotic features, in partial remission. Rest unchanged. PLAN: No change from initial note. MAN Vanesa DREW MD DR: STEFAN/satya JOB#: [id number] / [id number]
--- NOTE | 2018-09-19 22:59 | PDOC ---
Exam Note: Johnnie Note: Please also refer to the separate dictated note~for this date of service dictated separately.~Patient seen individually. Discussed the patient with Nursing staff reviewed the chart.~Reviewed interim history and current functioning. Reviewed vital signs,~Labs/ Radiology~and current medications noted below. Continue current treatment with the changes noted in the dictated addendum note Assessment: Vital Signs: Vital Signs Date Time Temp Pulse Resp B/P (MAP) Pulse Ox O2 Delivery O2 Flow Rate FiO2 09/19/18 17:53 75 103/68 09/19/18 15:47 98.3 20 97 09/19/18 06:07 Room Air I&O Intake and Output 09/19/18 07:01 Intake Total 1080 ml Balance 1080 ml Intake Oral 1080 ml # Voids 1 Labs: Laboratory Tests Test 09/19/18 07:38 09/19/18 11:34 09/19/18 16:38 09/19/18 19:25 Glucose (Fingerstick) 97 mg/dL (70-99) 107 mg/dL (70-99) H 128 mg/dL (70-99) H 160 mg/dL (70-99) H Current Medications: Meds: Current Medications Acetaminophen (Tylenol) 650 mg PRN Q6HRS PRN PO PAIN / TEMP Last administered on 09/12/18at 02:17; Start 08/11/18 at 21:00 Multi-Ingredient Ointment (Analgesic [place]) 1 yaima PRN QID PRN TP MUSCLE PAIN; Start 08/11/18 at 21:00 Al Hydroxide/Mg Hydroxide (Mylanta Plus Xs) 15 ml PRN AFTMEALHC PRN PO DYSPEPSIA; Start 08/11/18 at 21:00 Magnesium Hydroxide (Milk Of Magnesia) 2,400 mg PRN QHS PRN PO CONSTIPATION; Start 08/11/18 at 21:00 Alprazolam (Xanax) 0.5 mg PRN Q6HRS PRN PO ANXIETY / AGITATION Last administered on 08/21/18at 20:06; Start 08/11/18 at 22:30 Divalproex Sodium (Depakote Sprinkles) 250 mg BIDWMEALS PO Last administered on 08/13/18at 18:08; Start 08/12/18 at 08:00; Stop 08/13/18 at 20:26; Status DC Duloxetine HCl (Cymbalta) 60 mg BIDWMEALS PO Last administered on 08/13/18at 18 :08; Start 08/12/18 at 08:00; Stop 08/13/18 at 20:26; Status DC Risperidone (RisperDAL) 2 mg BIDWMEALS PO Last administered on 08/14/18at 17:45 ; Start 08/12/18 at 08:00; Stop 08/14/18 at 18:45; Status DC Trazodone HCl (Desyrel) 100 mg HS PO Last administered on 09/19/18 20:00; Start 08/11/18 at 22:30 Ascorbic Acid (Vitamin C) 500 mg BIDWMEALS PO Last administered on 09/19/18 17 :51; Start 08/12/18 at 08:00 Calcium Carbonate/ Glycine (Tums) 500 mg PRN Q6HRS PRN PO INDIGESTION; Start 08/11/18 at 22:15 Vitamin D (Vitamin D3) 2,000 unit DAILY PO Last administered on 09/19/18 08:18 ; Start 08/12/18 at 09:00 Diclofenac Sodium (Voltaren) 1 yaima QID TP Last administered on 09/19/18 17:53 ; Start 08/12/18 at 09:00 Guaifenesin (Mucinex Er) 600 mg BIDWMEALS PO Last administered on 09/19/18 17: 51; Start 08/12/18 at 08:00 Acetaminophen/ Hydrocodone Bitart (Lortab 5/325) 1 tab PRN Q6HRS PRN PO PAIN Last administered on 09/08/18 17:32; Start 08/11/18 at 22:15 Levothyroxine Sodium (Synthroid) 100 mcg DAILY06 PO Last administered on 06:13; Start 08/12/18 at 06:00 Lisinopril (Prinivil) 10 mg DAILY PO Last administered on 09/19/18 08:16; Start 08/12/18 at 09:00 Nitroglycerin (Nitrostat) 0.4 mg PRN Q5MIN PRN SL CHEST PAIN; Start 08/11/18 at 22:15 Nystatin (Nystop) 1 yaima BID TP Last administered on 09/15/18 08:38; Start at 09:00; Stop 09/15/18 at 14:19; Status DC Allopurinol (Zyloprim) 100 mg DAILY PO Last administered on 09/19/18 08:15; Start 08/12/18 at 09:00 Carvedilol (Coreg) 12.5 mg BIDWMEALS PO Last administered on 09/03/18 08:42; Start 08/12/18 at 08:00; Stop 09/04/18 at 11:25; Status DC Folic Acid (Folic Acid) 1 mg DAILY PO Last administered on 09/19/18 08:17; Start 08/12/18 at 09:00 Furosemide (Lasix) 40 mg DAILY PO Last administered on 09/13/18 09:12; Start 08/12/18 at 09:00; Stop 09/13/18 at 17:08; Status DC Insulin Human Lispro (HumaLOG) 5 units TIDWMEALS SQ Last administered on 17:28; Start 08/12/18 at 08:00 Insulin Glargine (Lantus) 10 units QHS SQ Last administered on 09/19/18 20:05 ; Start 08/11/18 at 23:00 Loperamide HCl (Imodium) 2 mg PRN Q6HRS PRN PO DIARRHEA; Start 08/11/18 at 22: 45 Non-Formulary Medication (Magnesium Hydroxide (Milk Of Magnesia)) 2,400 mg PRN DAILY PRN PO CONSTIPATION; Start 08/11/18 at 22:15; Status UNV Metformin HCl (Glucophage) 1,000 mg BIDWMEALS PO Last administered on 17:51; Start 08/12/18 at 08:00 Methotrexate (Rheumatrex) 15 mg WEEKLY PO Last administered on 09/15/18 08:41 ; Start 08/18/18 at 09:00 Multivitamins/ Calcium (Thera-M Plus) 1 tab DAILY PO Last administered on 08:17; Start 08/12/18 at 09:00 Glucose (Insta-Glucose) 15 gm PRN Q15MIN PRN PO LOW BLOOD SUGAR; Start at 08:15 Divalproex Sodium (Depakote Sprinkles) 500 mg BIDWMEALS PO ; Start 08/13/18 at 20:27; Stop 08/13/18 at 20:36; Status DC Duloxetine HCl (Cymbalta) 60 mg DAILY PO Last administered on 09/19/18at 08:17; Start 08/14/18 at 09:00 Divalproex Sodium (Depakote Sprinkles) 500 mg BIDWMEALS PO Last administered on 09/19/18at 17:49; Start 08/14/18 at 08:00 Risperidone (RisperDAL) 1.5 mg DAILY PO ; Start 08/14/18 at 19:00; Stop at 19:00; Status DC Risperidone (RisperDAL) 2 mg HS PO Last administered on 08/16/18at 18:51; Start 08/14/18 at 21:00; Stop 08/17/18 at 18:30; Status DC Risperidone (RisperDAL) 1.5 mg HS PO ; Start 08/18/18 at 21:00; Stop 08/18/18 at 21:00; Status DC Risperidone (RisperDAL) 1.5 mg DAILY PO Last administered on 08/17/18at 08:08; Start 08/15/18 at 09:00; Stop 08/17/18 at 18:30; Status DC Amantadine HCl (Symmetrel) 100 mg DAILY PO Last administered on 08/23/18at 08:00 ; Start 08/17/18 at 09:00; Stop 08/23/18 at 21:37; Status DC Risperidone (RisperDAL) 1.5 mg BID PO Last administered on 08/19/18at 08:15; Start 08/17/18 at 21:00; Stop 08/19/18 at 15:58; Status DC Risperidone (RisperDAL) 1 mg BID PO Last administered on 08/22/18at 11:33; Start 08/19/18 at 21:00; Stop 08/22/18 at 17:30; Status DC Risperidone (RisperDAL) 1 mg QHS PO Last administered on 08/24/18at 20:41; Start 08/22/18 at 21:00; Stop 08/25/18 at 18:41; Status DC Risperidone (RisperDAL) 0.5 mg DAILY PO Last administered on 08/25/18at 11:14; Start 08/23/18 at 09:00; Stop 08/25/18 at 09:00; Status DC Amantadine HCl (Symmetrel) 100 mg BID PO Last administered on 09/19/18 20:04; Start 08/24/18 at 09:00 Risperidone (RisperDAL) 1.5 mg BID PO Last administered on 09/19/18 20:00; Start 08/26/18 at 09:00 Risperidone (RisperDAL) 2 mg HS PO Last administered on 08/25/18 20:03; Start 08/25/18 at 21:00; Stop 08/25/18 at 21:01; Status DC Trazodone HCl (Desyrel) 100 mg PRN QHS PRN PO INSOMNIA Last administered on 08/31 02:29; Start 08/30/18 at 18:45 Potassium Chloride (Klor-Con) 20 meq TID PO Last administered on 09/03/18 14: 25; Start 08/31/18 at 21:00; Stop 09/03/18 at 17:14; Status DC Doxycycline Hyclate (Vibra-Tab) 100 mg BID PO Last administered on 09/13/18 20 :13; Start 09/03/18 at 21:00; Stop 09/13/18 at 20:59; Status DC Lactobacillus Rhamnosus (Culturelle) 1 cap BID PO Last administered on 20:00; Start 09/03/18 at 21:00 Carvedilol (Coreg) 6.25 mg BIDWMEALS PO Last administered on 09/19/18at 17:53; Start 09/04/18 at 17:00 Aspirin (Aspirin Enteric Coated) 81 mg DAILYWBKFT PO Last administered on 08:18; Start 09/14/18 at 08:00 Furosemide (Lasix) 40 mg BID PO Last administered on 09/15/18 08:36; Start at 21:00; Stop 09/15/18 at 11:23; Status DC Potassium Chloride (Klor-Con) 20 meq BID PO Last administered on 09/15/18 08: 35; Start 09/13/18 at 21:00; Stop 09/15/18 at 11:23; Status DC Furosemide (Lasix) 40 mg DAILY PO Last administered on 09/19/18at 08:15; Start 09/16/18 at 09:00 Potassium Chloride (Klor-Con) 20 meq DAILY PO Last administered on 09/19/18at 08 :17; Start 09/16/18 at 09:00 Nystatin (Nystop) 1 yaima TID TP Last administered on 09/19/18at 20:03; Start at 21:00 Active Scripts Active Reported Xanax (Alprazolam) 0.5 Mg Tablet 0.5 Mg PO PRN Q6HRS PRN Hydrocodone-Apap 5-325 (Hydrocodone Bit/Acetaminophen) 1 Each Tablet 1 Tab PO PRN Q6HRS PRN Voltaren (Diclofenac Sodium) 100 Gm Gel..gram. 4 Gm TP QID Nystatin 15 Gm Powder 1 Yaima TP BID Tums (Calcium Carbonate) 200 Mg Tab.chew 2 Tab PO PRN Q6HRS PRN Nitrostat (Nitroglycerin) 0.4 Mg Tab.subl 0.4 Mg SL PRN Q5MIN PRN Milk Of Magnesia (Magnesium Hydroxide) 2,400 Mg/10 Ml Oral.susp 2,400 Mg PO PRN DAILY PRN Loperamide (Loperamide Hcl) 2 Mg Tablet 2 Mg PO PRN Q6HRS PRN Vitamin C (Ascorbic Acid) 500 Mg Tablet 500 Mg PO BIDWMEALS Risperdal (Risperidone) 2 Mg Tablet 2 Mg PO BIDWMEALS Mucinex (Guaifenesin) 600 Mg Tablet.er 600 Mg PO BIDWMEALS Metformin Hcl 1,000 Mg Tablet 1,000 Mg PO BIDWMEALS Cymbalta (Duloxetine Hcl) 60 Mg Capsule.dr 60 Mg PO BIDWMEALS Depakote Sprinkle (Divalproex Sodium) 125 Mg Cap.sprink 250 Mg PO BIDWMEALS Coreg (Carvedilol) 12.5 Mg Tablet 12.5 Mg PO BIDWMEALS Vitamin D3 (Cholecalciferol (Vitamin D3)) 1,000 Unit Tablet 2,000 Unit PO DAILY Trazodone Hcl 100 Mg Tablet 100 Mg PO HS Multivitamins (Multivitamin) 1 Each Tablet 1 Tab PO DAILY Methotrexate (Methotrexate Sodium) 2.5 Mg Tablet 15 Mg PO WEEKLY Lisinopril 10 Mg Tablet 10 Mg PO DAILY Levothyroxine Sodium 100 Mcg Tablet 100 Mcg PO DAILYAC Lasix (Furosemide) 40 Mg Tablet 40 Mg PO DAILY Folic Acid 1 Mg Tablet 1 Mg PO DAILY Allopurinol 100 Mg Tablet 100 Mg PO DAILY Novolog (Insulin Aspart) 100 Unit/1 Ml Vial 5 Unit SQ TIDWMEALS Levemir (Insulin Detemir) 100 Unit/1 Ml Vial 10 Unit SQ HS I have reviewed the current psychotropics carefully including drug interactions. Risk benefit ratio favors no change other than as noted in my dictated progress note. Diagnosis: Problems: (1) Anxiety disorder (2) Major depressive disorder, recurrent episode (3) Impulse control disorder (4) Dementia in Alzheimer's disease with delusions (5) Dementia in Alzheimer's disease with depression (6) Dementia, vascular, with delusions (7) Dementia, vascular, with depression KAITLIN DREW MD Sep 19, 2018 22:59
--- NOTE | 2018-09-20 03:28 | PN ---
DATE: 09/17/2018 This is a late entry for 09/17/2018 covers elements not covered in my initial note. SUBJECTIVE: I met with the patient in the evening. The patient slept 9 hours previous night. She remains somewhat withdrawn, but appropriate. 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 No CV, , pulmonary, eye system symptoms on review. MENTAL STATUS EXAM: Oriented to herself and situation. Speech as above. Abstraction fair, computation impaired, language function intact. Mood and affect, generally appropriate. No clear psychotic symptoms, suicidal or homicidal ideation. LABORATORY DATA: Reviewed. IMPRESSION: Unchanged from initial note. PLAN: No change from initial note. KAITLIN DREW MD DR: STEFAN/satya JOB#: [id number] / [id number]
[2018-09-20] MEDS: LEVOTHYROXINE 100 MCG TABLET PO SCH (06:19)
[2018-09-20 06:42] VITALS: BP 97/69
[2018-09-20] MEDS: CARVEDILOL 6.25 MG TABLET PO SCH ×2 (08:00→17:29)
[2018-09-20] MEDS: FUROSEMIDE 40 MG TABLET PO SCH (08:36)
[2018-09-20] MEDS: LACTOBACILLUS RHAMNOSUS GG 1 CAPSULE. PO SCH ×2 (08:36→21:08)
[2018-09-20] MEDS: AMANTADINE HCL 100 MG CAPSULE PO SCH ×2 (08:36→21:13)
[2018-09-20] MEDS: risperiDONE 0.5 MG TABLET. PO SCH ×2 (08:36→21:08)
[2018-09-20] MEDS: ASCORBIC ACID 500 MG TABLET PO SCH ×2 (08:36→17:30)
[2018-09-20] MEDS: CHOLECALCIFEROL (VITAMIN D3) 1,000 UNIT TABLET PO SCH (08:37)
[2018-09-20] MEDS: POTASSIUM CHLORIDE 20 MEQ TABLET.ER. PO SCH (08:37)
[2018-09-20] MEDS: ASPIRIN ENTERIC COATED 81 MG TABLET.DR. PO SCH (08:37)
[2018-09-20] MEDS: ALLOPURINOL 100 MG TABLET. PO SCH (08:37)
[2018-09-20] MEDS: DIVALPROEX 125 MG CAP.SPRINK PO SCH ×2 (08:37→17:29)
[2018-09-20] MEDS: DULoxetine HCL 60 MG CAPSULE.DR PO SCH (08:38)
[2018-09-20] MEDS: metFORMIN 500 MG TABLET PO SCH ×2 (08:38→17:30)
[2018-09-20] MEDS: FOLIC ACID 1 MG TABLET PO SCH (08:38)
[2018-09-20] MEDS: MULTIVITAMIN with MINERAL TABLET. PO SCH (08:38)
[2018-09-20] MEDS: DICLOFENAC SODIUM 1% TOPICAL GEL 100GM TUBE. TP SCH ×4 (08:39→21:10)
[2018-09-20] MEDS: NYSTATIN TOPICAL POWDER 15GM BOTTLE. TP SCH ×3 (08:39→21:13)
[2018-09-20] MEDS: INSULIN LISPRO 300 UNITS/3 ML INSULN.PEN. SQ SCH ×3 (08:40→17:27)
[2018-09-20] MEDS: LISINOPRIL 10 MG TABLET PO SCH (09:00)
[2018-09-20 09:21] LABS: BASO % 0 % (0-3); EOS # 0.1 x10^3/uL (0.0-0.7); EOS % 2 % (0-3); HEMATOCRIT 41.8 % (36.0-47.0); HEMOGLOBIN 13.5 g/dL (12.0-15.5); LYMPH # 1.1 x10^3/uL (1.0-4.8); LYMPH % 11 % (24-48); MEAN CORPUSCULAR HEMOGLOBIN 32 pg (25-35); MEAN CORPUSCULAR HGB CONC 32 g/dL (31-37); MEAN CORPUSCULAR VOLUME 98 fL (79-100); MONO # 0.4 x10^3/uL (0.0-1.1); MONO % 4 % (0-9); NEUT # 8.2 x10^3uL (1.8-7.7); NEUT % 83 % (31-73); PLATELET COUNT 200 x10^3/uL (140-400); RED BLOOD COUNT 4.25 x10^6/uL (3.50-5.40); RED CELL DISTRIBUTION WIDTH 19.2 % (11.5-14.5); WHITE BLOOD COUNT 9.8 x10^3/uL (4.0-11.0)
[2018-09-20 09:29] LABS: ALBUMIN 2.9 g/dL (3.4-5.0); ALBUMIN/GLOBULIN RATIO 0.7 (1.0-1.7); CREATININE 1.1 mg/dL (0.6-1.0); GFR 50.7; POTASSIUM 4.3 mmol/L (3.5-5.1); TOTAL BILIRUBIN 0.7 mg/dL (0.2-1.0); TOTAL PROTEIN 7.1 g/dL (6.4-8.2)
[2018-09-20 16:17] VITALS: BP 120/74
[2018-09-20] MEDS: traZODone 100 MG TABLET. PO SCH (21:08)
[2018-09-20] MEDS: INSULIN GLARGINE 300 UNITS/3 ML INSULN.PEN. SQ SCH (21:16)
--- NOTE | 2018-09-20 22:49 | PDOC ---
Exam Note: Johnnie Note: Please also refer to the separate dictated note~for this date of service dictated separately.~Patient seen individually. Discussed the patient with Nursing staff reviewed the chart.~Reviewed interim history and current functioning. Reviewed vital signs,~Labs/ Radiology~and current medications noted below. Continue current treatment with the changes noted in the dictated addendum note Assessment: Vital Signs: Vital Signs Date Time Temp Pulse Resp B/P (MAP) Pulse Ox O2 Delivery O2 Flow Rate FiO2 09/20/18 17:29 85 120/74 09/20/18 16:17 98.1 20 94 Room Air I&O Intake and Output 09/20/18 07:01 Intake Total 820 ml Balance 820 ml Intake Oral 820 ml # Bowel Movements 1 Labs: Laboratory Tests Test 09/20/18 07:38 09/20/18 09:05 09/20/18 11:47 09/20/18 16:54 Glucose (Fingerstick) 89 mg/dL (70-99) 189 mg/dL (70-99) H 104 mg/dL (70-99) H White Blood Count 9.8 x10^3/uL (4.0-11.0) # Red Blood Count 4.25 x10^6/uL (3.50-5.40) Hemoglobin 13.5 g/dL (12.0-15.5) Hematocrit 41.8 % (36.0-47.0) Mean Corpuscular Volume 98 fL (79-100) Mean Corpuscular Hemoglobin 32 pg (25-35) Mean Corpuscular Hemoglobin Concent 32 g/dL (31-37) Red Cell Distribution Width 19.2 % (11.5-14.5) H Platelet Count 200 x10^3/uL (140-400) Neutrophils (%) (Auto) 83 % (31-73) H Lymphocytes (%) (Auto) 11 % (24-48) L Monocytes (%) (Auto) 4 % (0-9) Eosinophils (%) (Auto) 2 % (0-3) Basophils (%) (Auto) 0 % (0-3) Neutrophils # (Auto) 8.2 x10^3uL (1.8-7.7) H Lymphocytes # (Auto) 1.1 x10^3/uL (1.0-4.8) Monocytes # (Auto) 0.4 x10^3/uL (0.0-1.1) Eosinophils # (Auto) 0.1 x10^3/uL (0.0-0.7) Basophils # (Auto) 0.0 x10^3/uL (0.0-0.2) Sodium Level 140 mmol/L (136-145) Potassium Level 4.3 mmol/L (3.5-5.1) Chloride Level 101 mmol/L (98-107) Carbon Dioxide Level 30 mmol/L (21-32) Anion Gap 9 (6-14) Blood Urea Nitrogen 14 mg/dL (7-20) Creatinine 1.1 mg/dL (0.6-1.0) H Estimated GFR (Cockcroft-Gault) 50.7 BUN/Creatinine Ratio 13 (6-20) Glucose Level 170 mg/dL (70-99) H Calcium Level 9.0 mg/dL (8.5-10.1) Total Bilirubin 0.7 mg/dL (0.2-1.0) Aspartate Amino Transferase (AST) 16 U/L (15-37) Alanine Aminotransferase (ALT) 18 U/L (14-59) Alkaline Phosphatase 89 U/L (46-116) Total Protein 7.1 g/dL (6.4-8.2) Albumin 2.9 g/dL (3.4-5.0) L Albumin/Globulin Ratio 0.7 (1.0-1.7) L Test 09/20/18 19:26 Glucose (Fingerstick) 134 mg/dL (70-99) H Current Medications: Meds: Current Medications Acetaminophen (Tylenol) 650 mg PRN Q6HRS PRN PO PAIN / TEMP Last administered on 09/12/18at 02:17; Start 08/11/18 at 21:00 Multi-Ingredient Ointment (Analgesic [place]) 1 yaima PRN QID PRN TP MUSCLE PAIN; Start 08/11/18 at 21:00 Al Hydroxide/Mg Hydroxide (Mylanta Plus Xs) 15 ml PRN AFTMEALHC PRN PO DYSPEPSIA; Start 08/11/18 at 21:00 Magnesium Hydroxide (Milk Of Magnesia) 2,400 mg PRN QHS PRN PO CONSTIPATION; Start 08/11/18 at 21:00 Alprazolam (Xanax) 0.5 mg PRN Q6HRS PRN PO ANXIETY / AGITATION Last administered on 08/21/18 20:06; Start 08/11/18 at 22:30 Divalproex Sodium (Depakote Sprinkles) 250 mg BIDWMEALS PO Last administered on 08/13/18at 18:08; Start 08/12/18 at 08:00; Stop 08/13/18 at 20:26; Status DC Duloxetine HCl (Cymbalta) 60 mg BIDWMEALS PO Last administered on 08/13/18at 18 :08; Start 08/12/18 at 08:00; Stop 08/13/18 at 20:26; Status DC Risperidone (RisperDAL) 2 mg BIDWMEALS PO Last administered on 08/14/18at 17:45 ; Start 08/12/18 at 08:00; Stop 08/14/18 at 18:45; Status DC Trazodone HCl (Desyrel) 100 mg HS PO Last administered on 09/20/18 21:08; Start 08/11/18 at 22:30 Ascorbic Acid (Vitamin C) 500 mg BIDWMEALS PO Last administered on 09/20/18 17 :30; Start 08/12/18 at 08:00 Calcium Carbonate/ Glycine (Tums) 500 mg PRN Q6HRS PRN PO INDIGESTION; Start 08/11/18 at 22:15 Vitamin D (Vitamin D3) 2,000 unit DAILY PO Last administered on 09/20/18 08:37 ; Start 08/12/18 at 09:00 Diclofenac Sodium (Voltaren) 1 yaima QID TP Last administered on 09/20/18 21:10 ; Start 08/12/18 at 09:00 Guaifenesin (Mucinex Er) 600 mg BIDWMEALS PO Last administered on 09/20/18 17: 29; Start 08/12/18 at 08:00 Acetaminophen/ Hydrocodone Bitart (Lortab 5/325) 1 tab PRN Q6HRS PRN PO PAIN Last administered on 09/08/18 17:32; Start 08/11/18 at 22:15 Levothyroxine Sodium (Synthroid) 100 mcg DAILY06 PO Last administered on 06:19; Start 12/21/18 at 06:00 Lisinopril (Prinivil) 10 mg DAILY PO Last administered on 09/19/18 08:16; Start 08/12/18 at 09:00 Nitroglycerin (Nitrostat) 0.4 mg PRN Q5MIN PRN SL CHEST PAIN; Start 08/11/18 at 22:15 Nystatin (Nystop) 1 yaima BID TP Last administered on 09/15/18 08:38; Start at 09:00; Stop 09/15/18 at 14:19; Status DC Allopurinol (Zyloprim) 100 mg DAILY PO Last administered on 09/20/18 08:37; Start 08/12/18 at 09:00 Carvedilol (Coreg) 12.5 mg BIDWMEALS PO Last administered on 09/03/18 08:42; Start 08/12/18 at 08:00; Stop 09/04/18 at 11:25; Status DC Folic Acid (Folic Acid) 1 mg DAILY PO Last administered on 09/20/18 08:38; Start 08/12/18 at 09:00 Furosemide (Lasix) 40 mg DAILY PO Last administered on 09/13/18 09:12; Start 08/12/18 at 09:00; Stop 09/13/18 at 17:08; Status DC Insulin Human Lispro (HumaLOG) 5 units TIDWMEALS SQ Last administered on 17:27; Start 08/12/18 at 08:00 Insulin Glargine (Lantus) 10 units QHS SQ Last administered on 09/20/18 21:16 ; Start 08/11/18 at 23:00 Loperamide HCl (Imodium) 2 mg PRN Q6HRS PRN PO DIARRHEA; Start 08/11/18 at 22: 45 Non-Formulary Medication (Magnesium Hydroxide (Milk Of Magnesia)) 2,400 mg PRN DAILY PRN PO CONSTIPATION; Start 08/11/18 at 22:15; Status UNV Metformin HCl (Glucophage) 1,000 mg BIDWMEALS PO Last administered on 17:30; Start 08/12/18 at 08:00 Methotrexate (Rheumatrex) 15 mg WEEKLY PO Last administered on 09/15/18 08:41 ; Start 08/18/18 at 09:00 Multivitamins/ Calcium (Thera-M Plus) 1 tab DAILY PO Last administered on 08:38; Start 08/12/18 at 09:00 Glucose (Insta-Glucose) 15 gm PRN Q15MIN PRN PO LOW BLOOD SUGAR; Start at 08:15 Divalproex Sodium (Depakote Sprinkles) 500 mg BIDWMEALS PO ; Start 08/13/18 at 20:27; Stop 08/13/18 at 20:36; Status DC Duloxetine HCl (Cymbalta) 60 mg DAILY PO Last administered on 09/20/18 08:38; Start 08/14/18 at 09:00 Divalproex Sodium (Depakote Sprinkles) 500 mg BIDWMEALS PO Last administered on 09/20/18 17:29; Start 08/14/18 at 08:00 Risperidone (RisperDAL) 1.5 mg DAILY PO ; Start 08/14/18 at 19:00; Stop at 19:00; Status DC Risperidone (RisperDAL) 2 mg HS PO Last administered on 08/16/18at 18:51; Start 08/14/18 at 21:00; Stop 08/17/18 at 18:30; Status DC Risperidone (RisperDAL) 1.5 mg HS PO ; Start 08/18/18 at 21:00; Stop 08/18/18 at 21:00; Status DC Risperidone (RisperDAL) 1.5 mg DAILY PO Last administered on 08/17/18at 08:08; Start 08/15/18 at 09:00; Stop 08/17/18 at 18:30; Status DC Amantadine HCl (Symmetrel) 100 mg DAILY PO Last administered on 08/23/18at 08:00 ; Start 08/17/18 at 09:00; Stop 08/23/18 at 21:37; Status DC Risperidone (RisperDAL) 1.5 mg BID PO Last administered on 08/19/18at 08:15; Start 08/17/18 at 21:00; Stop 08/19/18 at 15:58; Status DC Risperidone (RisperDAL) 1 mg BID PO Last administered on 08/22/18at 11:33; Start 08/19/18 at 21:00; Stop 08/22/18 at 17:30; Status DC Risperidone (RisperDAL) 1 mg QHS PO Last administered on 08/24/18 20:41; Start 08/22/18 at 21:00; Stop 08/25/18 at 18:41; Status DC Risperidone (RisperDAL) 0.5 mg DAILY PO Last administered on 08/25/18 11:14; Start 08/23/18 at 09:00; Stop 08/25/18 at 09:00; Status DC Amantadine HCl (Symmetrel) 100 mg BID PO Last administered on 09/20/18 21:13; Start 08/24/18 at 09:00 Risperidone (RisperDAL) 1.5 mg BID PO Last administered on 09/20/18 21:08; Start 08/26/18 at 09:00 Risperidone (RisperDAL) 2 mg HS PO Last administered on 08/25/18 20:03; Start 08/25/18 at 21:00; Stop 08/25/18 at 21:01; Status DC Trazodone HCl (Desyrel) 100 mg PRN QHS PRN PO INSOMNIA Last administered on 08/31 02:29; Start 08/30/18 at 18:45 Potassium Chloride (Klor-Con) 20 meq TID PO Last administered on 09/03/18 14: 25; Start 08/31/18 at 21:00; Stop 09/03/18 at 17:14; Status DC Doxycycline Hyclate (Vibra-Tab) 100 mg BID PO Last administered on 09/13/18 20 :13; Start 09/03/18 at 21:00; Stop 09/13/18 at 20:59; Status DC Lactobacillus Rhamnosus (Culturelle) 1 cap BID PO Last administered on 21:08; Start 09/03/18 at 21:00 Carvedilol (Coreg) 6.25 mg BIDWMEALS PO Last administered on 09/20/18 17:29; Start 09/04/18 at 17:00 Aspirin (Aspirin Enteric Coated) 81 mg DAILYWBKFT PO Last administered on 08:37; Start 09/14/18 at 08:00 Furosemide (Lasix) 40 mg BID PO Last administered on 09/15/18 08:36; Start at 21:00; Stop 09/15/18 at 11:23; Status DC Potassium Chloride (Klor-Con) 20 meq BID PO Last administered on 09/15/18at 08: 35; Start 09/13/18 at 21:00; Stop 09/15/18 at 11:23; Status DC Furosemide (Lasix) 40 mg DAILY PO Last administered on 09/20/18 08:36; Start 09/16/18 at 09:00 Potassium Chloride (Klor-Con) 20 meq DAILY PO Last administered on 09/20/18at 08 :37; Start 09/16/18 at 09:00 Nystatin (Nystop) 1 yaima TID TP Last administered on 09/20/18at 21:13; Start at 21:00 Active Scripts Active Reported Xanax (Alprazolam) 0.5 Mg Tablet 0.5 Mg PO PRN Q6HRS PRN Hydrocodone-Apap 5-325 (Hydrocodone Bit/Acetaminophen) 1 Each Tablet 1 Tab PO PRN Q6HRS PRN Voltaren (Diclofenac Sodium) 100 Gm Gel..gram. 4 Gm TP QID Nystatin 15 Gm Powder 1 Yaima TP BID Tums (Calcium Carbonate) 200 Mg Tab.chew 2 Tab PO PRN Q6HRS PRN Nitrostat (Nitroglycerin) 0.4 Mg Tab.subl 0.4 Mg SL PRN Q5MIN PRN Milk Of Magnesia (Magnesium Hydroxide) 2,400 Mg/10 Ml Oral.susp 2,400 Mg PO PRN DAILY PRN Loperamide (Loperamide Hcl) 2 Mg Tablet 2 Mg PO PRN Q6HRS PRN Vitamin C (Ascorbic Acid) 500 Mg Tablet 500 Mg PO BIDWMEALS Risperdal (Risperidone) 2 Mg Tablet 2 Mg PO BIDWMEALS Mucinex (Guaifenesin) 600 Mg Tablet.er 600 Mg PO BIDWMEALS Metformin Hcl 1,000 Mg Tablet 1,000 Mg PO BIDWMEALS Cymbalta (Duloxetine Hcl) 60 Mg Capsule.dr 60 Mg PO BIDWMEALS Depakote Sprinkle (Divalproex Sodium) 125 Mg Cap.sprink 250 Mg PO BIDWMEALS Coreg (Carvedilol) 12.5 Mg Tablet 12.5 Mg PO BIDWMEALS Vitamin D3 (Cholecalciferol (Vitamin D3)) 1,000 Unit Tablet 2,000 Unit PO DAILY Trazodone Hcl 100 Mg Tablet 100 Mg PO HS Multivitamins (Multivitamin) 1 Each Tablet 1 Tab PO DAILY Methotrexate (Methotrexate Sodium) 2.5 Mg Tablet 15 Mg PO WEEKLY Lisinopril 10 Mg Tablet 10 Mg PO DAILY Levothyroxine Sodium 100 Mcg Tablet 100 Mcg PO DAILYAC Lasix (Furosemide) 40 Mg Tablet 40 Mg PO DAILY Folic Acid 1 Mg Tablet 1 Mg PO DAILY Allopurinol 100 Mg Tablet 100 Mg PO DAILY Novolog (Insulin Aspart) 100 Unit/1 Ml Vial 5 Unit SQ TIDWMEALS Levemir (Insulin Detemir) 100 Unit/1 Ml Vial 10 Unit SQ HS I have reviewed the current psychotropics carefully including drug interactions. Risk benefit ratio favors no change other than as noted in my dictated progress note. Diagnosis: Problems: (1) Anxiety disorder (2) Major depressive disorder, recurrent episode (3) Impulse control disorder (4) Dementia in Alzheimer's disease with delusions (5) Dementia in Alzheimer's disease with depression (6) Dementia, vascular, with delusions (7) Dementia, vascular, with depression KAITLIN DREW MD Sep 20, 2018 22:49
--- NOTE | 2018-09-21 02:26 | PN ---
DATE: 09/19/2018 PSYCHIATRIC PROGRESS NOTE This late entry 09/19/2018 covers elements, not covered in my initial note. SUBJECTIVE: I met with the patient in the evening. The patient slept 7-1/4 hours previous night, somewhat reluctant, withdrawn in the morning, compliant with medications, later in the day quite cooperative. REVIEW OF SYSTEMS: Unable to speak and hear. No CV, , GI, eye system symptoms on review. Reliability varies. Most communication is nonverbal and on the white board. MENTAL STATUS EXAM: Oriented to herself and situation. Speech as above. Abstraction fair, computation impaired, language function intact, attention span short. Mood and affect somewhat withdrawn. LABORATORY DATA: Reviewed. IMPRESSION: Bipolar 1 disorder, mixed with psychotic features. Rest as above. PLAN: No change from initial note. MAN Vanesa DREW MD DR: STEFAN/satya JOB#: [id number] / [id number]
[2018-09-21 06:05] VITALS: BP 108/72
[2018-09-21] MEDS: LEVOTHYROXINE 100 MCG TABLET PO SCH (06:30)
[2018-09-21] MEDS: INSULIN LISPRO 300 UNITS/3 ML INSULN.PEN. SQ SCH ×3 (08:13→17:31)
[2018-09-21] MEDS: CARVEDILOL 6.25 MG TABLET PO SCH ×2 (08:35→17:31)
[2018-09-21] MEDS: ASPIRIN ENTERIC COATED 81 MG TABLET.DR. PO SCH (08:35)
[2018-09-21] MEDS: DIVALPROEX 125 MG CAP.SPRINK PO SCH ×2 (08:36→17:31)
[2018-09-21] MEDS: metFORMIN 500 MG TABLET PO SCH ×2 (08:36→17:31)
[2018-09-21] MEDS: ASCORBIC ACID 500 MG TABLET PO SCH ×2 (08:36→17:31)
[2018-09-21] MEDS: DULoxetine HCL 60 MG CAPSULE.DR PO SCH (08:36)
[2018-09-21] MEDS: LACTOBACILLUS RHAMNOSUS GG 1 CAPSULE. PO SCH ×2 (08:36→21:31)
[2018-09-21] MEDS: FOLIC ACID 1 MG TABLET PO SCH (08:36)
[2018-09-21] MEDS: FUROSEMIDE 40 MG TABLET PO SCH (08:37)
[2018-09-21] MEDS: POTASSIUM CHLORIDE 20 MEQ TABLET.ER. PO SCH (08:37)
[2018-09-21] MEDS: risperiDONE 0.5 MG TABLET. PO SCH ×2 (08:39→21:31)
[2018-09-21] MEDS: CHOLECALCIFEROL (VITAMIN D3) 1,000 UNIT TABLET PO SCH (08:40)
[2018-09-21] MEDS: ALLOPURINOL 100 MG TABLET. PO SCH (08:40)
[2018-09-21] MEDS: NYSTATIN TOPICAL POWDER 15GM BOTTLE. TP SCH ×3 (08:40→21:33)
[2018-09-21] MEDS: AMANTADINE HCL 100 MG CAPSULE PO SCH ×2 (08:40→21:33)
[2018-09-21] MEDS: MULTIVITAMIN with MINERAL TABLET. PO SCH (08:40)
[2018-09-21] MEDS: DICLOFENAC SODIUM 1% TOPICAL GEL 100GM TUBE. TP SCH ×4 (08:41→21:33)
[2018-09-21] MEDS: LISINOPRIL 10 MG TABLET PO SCH (09:00)
[2018-09-21 16:39] VITALS: BP 135/68
[2018-09-21] MEDS: traZODone 100 MG TABLET. PO SCH (21:31)
[2018-09-21] MEDS: INSULIN GLARGINE 300 UNITS/3 ML INSULN.PEN. SQ SCH (21:35)
--- NOTE | 2018-09-21 22:46 | PDOC ---
Exam Note: Johnnie Note: Please also refer to the separate dictated note~for this date of service dictated separately.~Patient seen individually. Discussed the patient with Nursing staff reviewed the chart.~Reviewed interim history and current functioning. Reviewed vital signs,~Labs/ Radiology~and current medications noted below. Continue current treatment with the changes noted in the dictated addendum note Assessment: Vital Signs: Vital Signs Date Time Temp Pulse Resp B/P (MAP) Pulse Ox O2 Delivery O2 Flow Rate FiO2 09/21/18 17:31 67 135/68 09/21/18 16:39 97.8 18 95 09/20/18 16:17 Room Air I&O Intake and Output 09/21/18 07:01 Intake Total 1205 ml Balance 1205 ml Intake Oral 1205 ml # Voids 1 Labs: Laboratory Tests Test 09/21/18 07:55 09/21/18 11:58 09/21/18 17:13 09/21/18 19:19 Glucose (Fingerstick) 93 mg/dL (70-99) 109 mg/dL (70-99) H 79 mg/dL (70-99) 157 mg/dL (70-99) H Current Medications: Meds: Current Medications Acetaminophen (Tylenol) 650 mg PRN Q6HRS PRN PO PAIN / TEMP Last administered on 09/12/18at 02:17; Start 08/11/18 at 21:00 Multi-Ingredient Ointment (Analgesic [place]) 1 yaima PRN QID PRN TP MUSCLE PAIN; Start 08/11/18 at 21:00 Al Hydroxide/Mg Hydroxide (Mylanta Plus Xs) 15 ml PRN AFTMEALHC PRN PO DYSPEPSIA; Start 08/11/18 at 21:00 Magnesium Hydroxide (Milk Of Magnesia) 2,400 mg PRN QHS PRN PO CONSTIPATION; Start 08/11/18 at 21:00 Alprazolam (Xanax) 0.5 mg PRN Q6HRS PRN PO ANXIETY / AGITATION Last administered on 08/21/18at 20:06; Start 08/11/18 at 22:30 Divalproex Sodium (Depakote Sprinkles) 250 mg BIDWMEALS PO Last administered on 08/13/18at 18:08; Start 08/12/18 at 08:00; Stop 08/13/18 at 20:26; Status DC Duloxetine HCl (Cymbalta) 60 mg BIDWMEALS PO Last administered on 08/13/18at 18 :08; Start 08/12/18 at 08:00; Stop 08/13/18 at 20:26; Status DC Risperidone (RisperDAL) 2 mg BIDWMEALS PO Last administered on 08/14/18at 17:45 ; Start 08/12/18 at 08:00; Stop 08/14/18 at 18:45; Status DC Trazodone HCl (Desyrel) 100 mg HS PO Last administered on 09/21/18 21:31; Start 08/11/18 at 22:30 Ascorbic Acid (Vitamin C) 500 mg BIDWMEALS PO Last administered on 09/21/18 17 :31; Start 08/12/18 at 08:00 Calcium Carbonate/ Glycine (Tums) 500 mg PRN Q6HRS PRN PO INDIGESTION; Start 08/11/18 at 22:15 Vitamin D (Vitamin D3) 2,000 unit DAILY PO Last administered on 09/21/18 08:40 ; Start 08/12/18 at 09:00 Diclofenac Sodium (Voltaren) 1 yaima QID TP Last administered on 09/21/18 21:33 ; Start 08/12/18 at 09:00 Guaifenesin (Mucinex Er) 600 mg BIDWMEALS PO Last administered on 09/21/18 17: 31; Start 08/12/18 at 08:00 Acetaminophen/ Hydrocodone Bitart (Lortab 5/325) 1 tab PRN Q6HRS PRN PO PAIN Last administered on 09/08/18 17:32; Start 08/11/18 at 22:15 Levothyroxine Sodium (Synthroid) 100 mcg DAILY06 PO Last administered on 06:30; Start 08/12/18 at 06:00 Lisinopril (Prinivil) 10 mg DAILY PO Last administered on 09/19/18 08:16; Start 08/12/18 at 09:00 Nitroglycerin (Nitrostat) 0.4 mg PRN Q5MIN PRN SL CHEST PAIN; Start 08/11/18 at 22:15 Nystatin (Nystop) 1 yaima BID TP Last administered on 1/24/19at 08:38; Start at 09:00; Stop 09/15/18 at 14:19; Status DC Allopurinol (Zyloprim) 100 mg DAILY PO Last administered on 09/21/18 08:40; Start 08/12/18 at 09:00 Carvedilol (Coreg) 12.5 mg BIDWMEALS PO Last administered on 09/03/18 08:42; Start 08/12/18 at 08:00; Stop 09/04/18 at 11:25; Status DC Folic Acid (Folic Acid) 1 mg DAILY PO Last administered on 09/21/18 08:36; Start 08/12/18 at 09:00 Furosemide (Lasix) 40 mg DAILY PO Last administered on 09/13/18 09:12; Start 08/12/18 at 09:00; Stop 09/13/18 at 17:08; Status DC Insulin Human Lispro (HumaLOG) 5 units TIDWMEALS SQ Last administered on 12:14; Start 08/12/18 at 08:00 Insulin Glargine (Lantus) 10 units QHS SQ Last administered on 09/21/18 21:35 ; Start 08/11/18 at 23:00 Loperamide HCl (Imodium) 2 mg PRN Q6HRS PRN PO DIARRHEA; Start 08/11/18 at 22: 45 Non-Formulary Medication (Magnesium Hydroxide (Milk Of Magnesia)) 2,400 mg PRN DAILY PRN PO CONSTIPATION; Start 08/11/18 at 22:15; Status UNV Metformin HCl (Glucophage) 1,000 mg BIDWMEALS PO Last administered on 17:31; Start 08/12/18 at 08:00 Methotrexate (Rheumatrex) 15 mg WEEKLY PO Last administered on 09/15/18 08:41 ; Start 08/18/18 at 09:00 Multivitamins/ Calcium (Thera-M Plus) 1 tab DAILY PO Last administered on 08:40; Start 08/12/18 at 09:00 Glucose (Insta-Glucose) 15 gm PRN Q15MIN PRN PO LOW BLOOD SUGAR; Start at 08:15 Divalproex Sodium (Depakote Sprinkles) 500 mg BIDWMEALS PO ; Start 08/13/18 at 20:27; Stop 08/13/18 at 20:36; Status DC Duloxetine HCl (Cymbalta) 60 mg DAILY PO Last administered on 09/21/18at 08:36; Start 08/14/18 at 09:00 Divalproex Sodium (Depakote Sprinkles) 500 mg BIDWMEALS PO Last administered on 09/21/18 17:31; Start 08/14/18 at 08:00 Risperidone (RisperDAL) 1.5 mg DAILY PO ; Start 08/14/18 at 19:00; Stop at 19:00; Status DC Risperidone (RisperDAL) 2 mg HS PO Last administered on 08/16/18at 18:51; Start 08/14/18 at 21:00; Stop 08/17/18 at 18:30; Status DC Risperidone (RisperDAL) 1.5 mg HS PO ; Start 08/18/18 at 21:00; Stop 08/18/18 at 21:00; Status DC Risperidone (RisperDAL) 1.5 mg DAILY PO Last administered on 08/17/18at 08:08; Start 08/15/18 at 09:00; Stop 08/17/18 at 18:30; Status DC Amantadine HCl (Symmetrel) 100 mg DAILY PO Last administered on 08/23/18at 08:00 ; Start 08/17/18 at 09:00; Stop 08/23/18 at 21:37; Status DC Risperidone (RisperDAL) 1.5 mg BID PO Last administered on 08/19/18at 08:15; Start 08/17/18 at 21:00; Stop 08/19/18 at 15:58; Status DC Risperidone (RisperDAL) 1 mg BID PO Last administered on 08/22/18at 11:33; Start 08/19/18 at 21:00; Stop 08/22/18 at 17:30; Status DC Risperidone (RisperDAL) 1 mg QHS PO Last administered on 08/24/18at 20:41; Start 08/22/18 at 21:00; Stop 08/25/18 at 18:41; Status DC Risperidone (RisperDAL) 0.5 mg DAILY PO Last administered on 08/25/18at 11:14; Start 08/23/18 at 09:00; Stop 08/25/18 at 09:00; Status DC Amantadine HCl (Symmetrel) 100 mg BID PO Last administered on 09/21/18 21:33; Start 08/24/18 at 09:00 Risperidone (RisperDAL) 1.5 mg BID PO Last administered on 09/21/18 21:31; Start 08/26/18 at 09:00 Risperidone (RisperDAL) 2 mg HS PO Last administered on 08/25/18 20:03; Start 08/25/18 at 21:00; Stop 08/25/18 at 21:01; Status DC Trazodone HCl (Desyrel) 100 mg PRN QHS PRN PO INSOMNIA Last administered on 08/31 02:29; Start 08/30/18 at 18:45 Potassium Chloride (Klor-Con) 20 meq TID PO Last administered on 09/03/18 14: 25; Start 08/31/18 at 21:00; Stop 09/03/18 at 17:14; Status DC Doxycycline Hyclate (Vibra-Tab) 100 mg BID PO Last administered on 09/13/18 20 :13; Start 09/03/18 at 21:00; Stop 09/13/18 at 20:59; Status DC Lactobacillus Rhamnosus (Culturelle) 1 cap BID PO Last administered on 21:31; Start 09/03/18 at 21:00 Carvedilol (Coreg) 6.25 mg BIDWMEALS PO Last administered on 09/21/18 17:31; Start 09/04/18 at 17:00 Aspirin (Aspirin Enteric Coated) 81 mg DAILYWBKFT PO Last administered on 08:35; Start 09/14/18 at 08:00 Furosemide (Lasix) 40 mg BID PO Last administered on 09/15/18 08:36; Start at 21:00; Stop 09/15/18 at 11:23; Status DC Potassium Chloride (Klor-Con) 20 meq BID PO Last administered on 09/15/18 08: 35; Start 09/13/18 at 21:00; Stop 09/15/18 at 11:23; Status DC Furosemide (Lasix) 40 mg DAILY PO Last administered on 09/21/18at 08:37; Start 09/16/18 at 09:00 Potassium Chloride (Klor-Con) 20 meq DAILY PO Last administered on 09/21/18at 08 :37; Start 09/16/18 at 09:00 Nystatin (Nystop) 1 yaima TID TP Last administered on 09/21/18at 21:33; Start at 21:00 Active Scripts Active Reported Xanax (Alprazolam) 0.5 Mg Tablet 0.5 Mg PO PRN Q6HRS PRN Hydrocodone-Apap 5-325 (Hydrocodone Bit/Acetaminophen) 1 Each Tablet 1 Tab PO PRN Q6HRS PRN Voltaren (Diclofenac Sodium) 100 Gm Gel..gram. 4 Gm TP QID Nystatin 15 Gm Powder 1 Yaima TP BID Tums (Calcium Carbonate) 200 Mg Tab.chew 2 Tab PO PRN Q6HRS PRN Nitrostat (Nitroglycerin) 0.4 Mg Tab.subl 0.4 Mg SL PRN Q5MIN PRN Milk Of Magnesia (Magnesium Hydroxide) 2,400 Mg/10 Ml Oral.susp 2,400 Mg PO PRN DAILY PRN Loperamide (Loperamide Hcl) 2 Mg Tablet 2 Mg PO PRN Q6HRS PRN Vitamin C (Ascorbic Acid) 500 Mg Tablet 500 Mg PO BIDWMEALS Risperdal (Risperidone) 2 Mg Tablet 2 Mg PO BIDWMEALS Mucinex (Guaifenesin) 600 Mg Tablet.er 600 Mg PO BIDWMEALS Metformin Hcl 1,000 Mg Tablet 1,000 Mg PO BIDWMEALS Cymbalta (Duloxetine Hcl) 60 Mg Capsule.dr 60 Mg PO BIDWMEALS Depakote Sprinkle (Divalproex Sodium) 125 Mg Cap.sprink 250 Mg PO BIDWMEALS Coreg (Carvedilol) 12.5 Mg Tablet 12.5 Mg PO BIDWMEALS Vitamin D3 (Cholecalciferol (Vitamin D3)) 1,000 Unit Tablet 2,000 Unit PO DAILY Trazodone Hcl 100 Mg Tablet 100 Mg PO HS Multivitamins (Multivitamin) 1 Each Tablet 1 Tab PO DAILY Methotrexate (Methotrexate Sodium) 2.5 Mg Tablet 15 Mg PO WEEKLY Lisinopril 10 Mg Tablet 10 Mg PO DAILY Levothyroxine Sodium 100 Mcg Tablet 100 Mcg PO DAILYAC Lasix (Furosemide) 40 Mg Tablet 40 Mg PO DAILY Folic Acid 1 Mg Tablet 1 Mg PO DAILY Allopurinol 100 Mg Tablet 100 Mg PO DAILY Novolog (Insulin Aspart) 100 Unit/1 Ml Vial 5 Unit SQ TIDWMEALS Levemir (Insulin Detemir) 100 Unit/1 Ml Vial 10 Unit SQ HS I have reviewed the current psychotropics carefully including drug interactions. Risk benefit ratio favors no change other than as noted in my dictated progress note. Diagnosis: Problems: (1) Anxiety disorder (2) Major depressive disorder, recurrent episode (3) Impulse control disorder (4) Dementia in Alzheimer's disease with delusions (5) Dementia in Alzheimer's disease with depression (6) Dementia, vascular, with delusions (7) Dementia, vascular, with depression KAITLIN DREW MD Sep 21, 2018 22:46
--- NOTE | 2018-09-22 03:28 | PN ---
DATE: 09/20/2018 This late entry for 09/20/2018 covers elements not covered in my initial note. SUBJECTIVE: I met with the patient in the evening. The patient slept 5-3/4 hours previous night. WBC is increased from 4 to 10 and I will defer to Dr. Abrams. She is receiving wound care. Lungs were somewhat wet again, defer to Dr. Abrams. REVIEW OF SYSTEMS: Unable to hear or speak and communication is nonverbal and on the white board. No CV, , pulmonary system symptoms on review. MENTAL STATUS EXAM: Oriented to herself and situation. Speech above. Abstraction fair, computation impaired, language function intact, attention span short. Mood and affect somewhat withdrawn, but improved. LABORATORY DATA: Reviewed. IMPRESSION: Unchanged from initial note. PLAN: No change from initial note. MAN Vanesa DREW MD DR: STEFAN/satya JOB#: [id number] / [id number]
[2018-09-22] MEDS: LEVOTHYROXINE 100 MCG TABLET PO SCH ×2 (06:26→09:04)
[2018-09-22 06:57] VITALS: BP 168/80
[2018-09-22] MEDS: DULoxetine HCL 60 MG CAPSULE.DR PO SCH (09:02)
[2018-09-22] MEDS: CHOLECALCIFEROL (VITAMIN D3) 1,000 UNIT TABLET PO SCH (09:02)
[2018-09-22] MEDS: risperiDONE 0.5 MG TABLET. PO SCH ×2 (09:02→20:00)
[2018-09-22] MEDS: LACTOBACILLUS RHAMNOSUS GG 1 CAPSULE. PO SCH ×2 (09:03→20:00)
[2018-09-22] MEDS: metFORMIN 500 MG TABLET PO SCH ×2 (09:03→17:23)
[2018-09-22] MEDS: LISINOPRIL 10 MG TABLET PO SCH (09:03)
[2018-09-22] MEDS: DIVALPROEX 125 MG CAP.SPRINK PO SCH ×2 (09:04→17:23)
[2018-09-22] MEDS: FOLIC ACID 1 MG TABLET PO SCH (09:04)
[2018-09-22] MEDS: POTASSIUM CHLORIDE 20 MEQ TABLET.ER. PO SCH (09:04)
[2018-09-22] MEDS: CARVEDILOL 6.25 MG TABLET PO SCH ×2 (09:05→17:23)
[2018-09-22] MEDS: ASPIRIN ENTERIC COATED 81 MG TABLET.DR. PO SCH (09:05)
[2018-09-22] MEDS: FUROSEMIDE 40 MG TABLET PO SCH (09:05)
[2018-09-22] MEDS: MULTIVITAMIN with MINERAL TABLET. PO SCH (09:06)
[2018-09-22] MEDS: ASCORBIC ACID 500 MG TABLET PO SCH ×2 (09:06→17:23)
[2018-09-22] MEDS: ALLOPURINOL 100 MG TABLET. PO SCH (09:06)
[2018-09-22] MEDS: NYSTATIN TOPICAL POWDER 15GM BOTTLE. TP SCH ×3 (09:08→20:01)
[2018-09-22] MEDS: METHOTREXATE SODIUM 2.5 MG TABLET PO SCH (09:09)
[2018-09-22] MEDS: AMANTADINE HCL 100 MG CAPSULE PO SCH ×2 (09:10→20:02)
[2018-09-22] MEDS: DICLOFENAC SODIUM 1% TOPICAL GEL 100GM TUBE. TP SCH ×6 (09:11→20:01)
[2018-09-22] MEDS: INSULIN LISPRO 300 UNITS/3 ML INSULN.PEN. SQ SCH ×3 (09:12→17:00)
[2018-09-22 16:25] VITALS: BP 131/99
[2018-09-22] MEDS: traZODone 100 MG TABLET. PO SCH (20:00)
[2018-09-22] MEDS: INSULIN GLARGINE 300 UNITS/3 ML INSULN.PEN. SQ SCH (20:03)
--- NOTE | 2018-09-22 22:43 | PDOC ---
Exam Note: Johnnie Note: Please also refer to the separate dictated note~for this date of service dictated separately.~Patient seen individually. Discussed the patient with Nursing staff reviewed the chart.~Reviewed interim history and current functioning. Reviewed vital signs,~Labs/ Radiology~and current medications noted below. Continue current treatment with the changes noted in the dictated addendum note Assessment: Vital Signs: Vital Signs Date Time Temp Pulse Resp B/P (MAP) Pulse Ox O2 Delivery O2 Flow Rate FiO2 09/22/18 17:23 77 131/99 09/22/18 16:25 98.4 20 94 09/20/18 16:17 Room Air I&O Intake and Output 09/22/18 07:01 Intake Total 1245 ml Balance 1245 ml Intake Oral 1245 ml # Voids 1 Labs: Laboratory Tests Test 09/22/18 07:39 09/22/18 12:20 09/22/18 16:58 09/22/18 19:41 Glucose (Fingerstick) 90 mg/dL (70-99) 112 mg/dL (70-99) H 86 mg/dL (70-99) 124 mg/dL (70-99) H Current Medications: Meds: Current Medications Acetaminophen (Tylenol) 650 mg PRN Q6HRS PRN PO PAIN / TEMP Last administered on 09/12/18at 02:17; Start 08/11/18 at 21:00 Multi-Ingredient Ointment (Analgesic Alpine) 1 yaima PRN QID PRN TP MUSCLE PAIN; Start 08/11/18 at 21:00 Al Hydroxide/Mg Hydroxide (Mylanta Plus Xs) 15 ml PRN AFTMEALHC PRN PO DYSPEPSIA; Start 08/11/18 at 21:00 Magnesium Hydroxide (Milk Of Magnesia) 2,400 mg PRN QHS PRN PO CONSTIPATION; Start 08/11/18 at 21:00 Alprazolam (Xanax) 0.5 mg PRN Q6HRS PRN PO ANXIETY / AGITATION Last administered on 08/21/18at 20:06; Start 08/11/18 at 22:30 Divalproex Sodium (Depakote Sprinkles) 250 mg BIDWMEALS PO Last administered on 08/13/18at 18:08; Start 08/12/18 at 08:00; Stop 08/13/18 at 20:26; Status DC Duloxetine HCl (Cymbalta) 60 mg BIDWMEALS PO Last administered on 08/13/18at 18 :08; Start 08/12/18 at 08:00; Stop 08/13/18 at 20:26; Status DC Risperidone (RisperDAL) 2 mg BIDWMEALS PO Last administered on 08/14/18at 17:45 ; Start 08/12/18 at 08:00; Stop 08/14/18 at 18:45; Status DC Trazodone HCl (Desyrel) 100 mg HS PO Last administered on 09/22/18 20:00; Start 08/11/18 at 22:30 Ascorbic Acid (Vitamin C) 500 mg BIDWMEALS PO Last administered on 09/22/18 17 :23; Start 08/12/18 at 08:00 Calcium Carbonate/ Glycine (Tums) 500 mg PRN Q6HRS PRN PO INDIGESTION; Start 08/11/18 at 22:15 Vitamin D (Vitamin D3) 2,000 unit DAILY PO Last administered on 09/22/18 09:02 ; Start 08/12/18 at 09:00 Diclofenac Sodium (Voltaren) 1 yaima QID TP Last administered on 09/22/18 20:01 ; Start 08/12/18 at 09:00 Guaifenesin (Mucinex Er) 600 mg BIDWMEALS PO Last administered on 09/22/18 17: 23; Start 08/12/18 at 08:00 Acetaminophen/ Hydrocodone Bitart (Lortab 5/325) 1 tab PRN Q6HRS PRN PO PAIN Last administered on 09/08/18 17:32; Start 08/11/18 at 22:15 Levothyroxine Sodium (Synthroid) 100 mcg DAILY06 PO Last administered on 09:04; Start 08/12/18 at 06:00 Lisinopril (Prinivil) 10 mg DAILY PO Last administered on 09/22/18 09:03; Start 08/12/18 at 09:00 Nitroglycerin (Nitrostat) 0.4 mg PRN Q5MIN PRN SL CHEST PAIN; Start 08/11/18 at 22:15 Nystatin (Nystop) 1 yaima BID TP Last administered on 1/24/19at 08:38; Start at 09:00; Stop 09/15/18 at 14:19; Status DC Allopurinol (Zyloprim) 100 mg DAILY PO Last administered on 09/22/18 09:06; Start 08/12/18 at 09:00 Carvedilol (Coreg) 12.5 mg BIDWMEALS PO Last administered on 09/03/18 08:42; Start 08/12/18 at 08:00; Stop 09/04/18 at 11:25; Status DC Folic Acid (Folic Acid) 1 mg DAILY PO Last administered on 09/22/18 09:04; Start 08/12/18 at 09:00 Furosemide (Lasix) 40 mg DAILY PO Last administered on 09/13/18 09:12; Start 08/12/18 at 09:00; Stop 09/13/18 at 17:08; Status DC Insulin Human Lispro (HumaLOG) 5 units TIDWMEALS SQ Last administered on 12:48; Start 08/12/18 at 08:00 Insulin Glargine (Lantus) 10 units QHS SQ Last administered on 09/22/18 20:03 ; Start 08/11/18 at 23:00 Loperamide HCl (Imodium) 2 mg PRN Q6HRS PRN PO DIARRHEA; Start 08/11/18 at 22: 45 Non-Formulary Medication (Magnesium Hydroxide (Milk Of Magnesia)) 2,400 mg PRN DAILY PRN PO CONSTIPATION; Start 08/11/18 at 22:15; Status UNV Metformin HCl (Glucophage) 1,000 mg BIDWMEALS PO Last administered on 17:23; Start 08/12/18 at 08:00 Methotrexate (Rheumatrex) 15 mg WEEKLY PO Last administered on 09/22/18 09:09 ; Start 08/18/18 at 09:00 Multivitamins/ Calcium (Thera-M Plus) 1 tab DAILY PO Last administered on 09:06; Start 08/12/18 at 09:00 Glucose (Insta-Glucose) 15 gm PRN Q15MIN PRN PO LOW BLOOD SUGAR; Start at 08:15 Divalproex Sodium (Depakote Sprinkles) 500 mg BIDWMEALS PO ; Start 08/13/18 at 20:27; Stop 08/13/18 at 20:36; Status DC Duloxetine HCl (Cymbalta) 60 mg DAILY PO Last administered on 09/22/18at 09:02; Start 08/14/18 at 09:00 Divalproex Sodium (Depakote Sprinkles) 500 mg BIDWMEALS PO Last administered on 09/22/18at 17:23; Start 08/14/18 at 08:00 Risperidone (RisperDAL) 1.5 mg DAILY PO ; Start 08/14/18 at 19:00; Stop at 19:00; Status DC Risperidone (RisperDAL) 2 mg HS PO Last administered on 08/16/18at 18:51; Start 08/14/18 at 21:00; Stop 08/17/18 at 18:30; Status DC Risperidone (RisperDAL) 1.5 mg HS PO ; Start 08/18/18 at 21:00; Stop 08/18/18 at 21:00; Status DC Risperidone (RisperDAL) 1.5 mg DAILY PO Last administered on 08/17/18at 08:08; Start 08/15/18 at 09:00; Stop 08/17/18 at 18:30; Status DC Amantadine HCl (Symmetrel) 100 mg DAILY PO Last administered on 08/23/18at 08:00 ; Start 08/17/18 at 09:00; Stop 08/23/18 at 21:37; Status DC Risperidone (RisperDAL) 1.5 mg BID PO Last administered on 08/19/18at 08:15; Start 08/17/18 at 21:00; Stop 08/19/18 at 15:58; Status DC Risperidone (RisperDAL) 1 mg BID PO Last administered on 08/22/18at 11:33; Start 08/19/18 at 21:00; Stop 08/22/18 at 17:30; Status DC Risperidone (RisperDAL) 1 mg QHS PO Last administered on 08/24/18at 20:41; Start 08/22/18 at 21:00; Stop 08/25/18 at 18:41; Status DC Risperidone (RisperDAL) 0.5 mg DAILY PO Last administered on 08/25/18at 11:14; Start 08/23/18 at 09:00; Stop 08/25/18 at 09:00; Status DC Amantadine HCl (Symmetrel) 100 mg BID PO Last administered on 09/22/18 20:02; Start 08/24/18 at 09:00 Risperidone (RisperDAL) 1.5 mg BID PO Last administered on 09/22/18 20:00; Start 08/26/18 at 09:00 Risperidone (RisperDAL) 2 mg HS PO Last administered on 08/25/18 20:03; Start 08/25/18 at 21:00; Stop 08/25/18 at 21:01; Status DC Trazodone HCl (Desyrel) 100 mg PRN QHS PRN PO INSOMNIA Last administered on 08/31 02:29; Start 08/30/18 at 18:45 Potassium Chloride (Klor-Con) 20 meq TID PO Last administered on 09/03/18 14: 25; Start 08/31/18 at 21:00; Stop 09/03/18 at 17:14; Status DC Doxycycline Hyclate (Vibra-Tab) 100 mg BID PO Last administered on 09/13/18 20 :13; Start 09/03/18 at 21:00; Stop 09/13/18 at 20:59; Status DC Lactobacillus Rhamnosus (Culturelle) 1 cap BID PO Last administered on 20:00; Start 09/03/18 at 21:00 Carvedilol (Coreg) 6.25 mg BIDWMEALS PO Last administered on 09/22/18 17:23; Start 09/04/18 at 17:00 Aspirin (Aspirin Enteric Coated) 81 mg DAILYWBKFT PO Last administered on 09:05; Start 09/14/18 at 08:00 Furosemide (Lasix) 40 mg BID PO Last administered on 09/15/18 08:36; Start at 21:00; Stop 09/15/18 at 11:23; Status DC Potassium Chloride (Klor-Con) 20 meq BID PO Last administered on 09/15/18 08: 35; Start 09/13/18 at 21:00; Stop 09/15/18 at 11:23; Status DC Furosemide (Lasix) 40 mg DAILY PO Last administered on 09/22/18at 09:05; Start 09/16/18 at 09:00 Potassium Chloride (Klor-Con) 20 meq DAILY PO Last administered on 09/22/18at 09 :04; Start 09/16/18 at 09:00 Nystatin (Nystop) 1 yaima TID TP Last administered on 09/22/18at 20:01; Start at 21:00 Active Scripts Active Reported Xanax (Alprazolam) 0.5 Mg Tablet 0.5 Mg PO PRN Q6HRS PRN Hydrocodone-Apap 5-325 (Hydrocodone Bit/Acetaminophen) 1 Each Tablet 1 Tab PO PRN Q6HRS PRN Voltaren (Diclofenac Sodium) 100 Gm Gel..gram. 4 Gm TP QID Nystatin 15 Gm Powder 1 Yaima TP BID Tums (Calcium Carbonate) 200 Mg Tab.chew 2 Tab PO PRN Q6HRS PRN Nitrostat (Nitroglycerin) 0.4 Mg Tab.subl 0.4 Mg SL PRN Q5MIN PRN Milk Of Magnesia (Magnesium Hydroxide) 2,400 Mg/10 Ml Oral.susp 2,400 Mg PO PRN DAILY PRN Loperamide (Loperamide Hcl) 2 Mg Tablet 2 Mg PO PRN Q6HRS PRN Vitamin C (Ascorbic Acid) 500 Mg Tablet 500 Mg PO BIDWMEALS Risperdal (Risperidone) 2 Mg Tablet 2 Mg PO BIDWMEALS Mucinex (Guaifenesin) 600 Mg Tablet.er 600 Mg PO BIDWMEALS Metformin Hcl 1,000 Mg Tablet 1,000 Mg PO BIDWMEALS Cymbalta (Duloxetine Hcl) 60 Mg Capsule.dr 60 Mg PO BIDWMEALS Depakote Sprinkle (Divalproex Sodium) 125 Mg Cap.sprink 250 Mg PO BIDWMEALS Coreg (Carvedilol) 12.5 Mg Tablet 12.5 Mg PO BIDWMEALS Vitamin D3 (Cholecalciferol (Vitamin D3)) 1,000 Unit Tablet 2,000 Unit PO DAILY Trazodone Hcl 100 Mg Tablet 100 Mg PO HS Multivitamins (Multivitamin) 1 Each Tablet 1 Tab PO DAILY Methotrexate (Methotrexate Sodium) 2.5 Mg Tablet 15 Mg PO WEEKLY Lisinopril 10 Mg Tablet 10 Mg PO DAILY Levothyroxine Sodium 100 Mcg Tablet 100 Mcg PO DAILYAC Lasix (Furosemide) 40 Mg Tablet 40 Mg PO DAILY Folic Acid 1 Mg Tablet 1 Mg PO DAILY Allopurinol 100 Mg Tablet 100 Mg PO DAILY Novolog (Insulin Aspart) 100 Unit/1 Ml Vial 5 Unit SQ TIDWMEALS Levemir (Insulin Detemir) 100 Unit/1 Ml Vial 10 Unit SQ HS I have reviewed the current psychotropics carefully including drug interactions. Risk benefit ratio favors no change other than as noted in my dictated progress note. Diagnosis: Problems: (1) Anxiety disorder (2) Major depressive disorder, recurrent episode (3) Impulse control disorder (4) Dementia in Alzheimer's disease with delusions (5) Dementia in Alzheimer's disease with depression (6) Dementia, vascular, with delusions (7) Dementia, vascular, with depression KAITLIN DREW MD Sep 22, 2018 22:43
[2018-09-23] MEDS ORDERED: LEVOTHYROXINE 100 MCG TABLET PO ONE (06:00)
[2018-09-23] MEDS: ACETAMINOPHEN 325 MG TABLET PO PRN (06:09)
[2018-09-23 06:34] VITALS: BP 95/46
[2018-09-23] MEDS: INSULIN LISPRO 300 UNITS/3 ML INSULN.PEN. SQ SCH ×3 (08:13→17:30)
[2018-09-23] MEDS: ALLOPURINOL 100 MG TABLET. PO SCH (09:03)
[2018-09-23] MEDS: ASCORBIC ACID 500 MG TABLET PO SCH ×2 (09:04→17:42)
[2018-09-23] MEDS: LACTOBACILLUS RHAMNOSUS GG 1 CAPSULE. PO SCH ×2 (09:04→20:21)
[2018-09-23] MEDS: LISINOPRIL 10 MG TABLET PO SCH (09:04)
[2018-09-23] MEDS: DULoxetine HCL 60 MG CAPSULE.DR PO SCH (09:04)
[2018-09-23] MEDS: FUROSEMIDE 40 MG TABLET PO SCH (09:04)
[2018-09-23] MEDS: AMANTADINE HCL 100 MG CAPSULE PO SCH ×2 (09:04→20:21)
[2018-09-23] MEDS: metFORMIN 500 MG TABLET PO SCH ×2 (09:05→17:42)
[2018-09-23] MEDS: FOLIC ACID 1 MG TABLET PO SCH (09:05)
[2018-09-23] MEDS: CHOLECALCIFEROL (VITAMIN D3) 1,000 UNIT TABLET PO SCH (09:05)
[2018-09-23] MEDS: ASPIRIN ENTERIC COATED 81 MG TABLET.DR. PO SCH (09:05)
[2018-09-23] MEDS: DIVALPROEX 125 MG CAP.SPRINK PO SCH ×2 (09:05→17:42)
[2018-09-23] MEDS: POTASSIUM CHLORIDE 20 MEQ TABLET.ER. PO SCH (09:06)
[2018-09-23] MEDS: MULTIVITAMIN with MINERAL TABLET. PO SCH (09:06)
[2018-09-23] MEDS: CARVEDILOL 6.25 MG TABLET PO SCH ×2 (09:06→17:42)
[2018-09-23] MEDS: NYSTATIN TOPICAL POWDER 15GM BOTTLE. TP SCH ×3 (09:08→20:21)
[2018-09-23] MEDS: risperiDONE 0.5 MG TABLET. PO SCH ×2 (09:08→20:21)
[2018-09-23] MEDS: DICLOFENAC SODIUM 1% TOPICAL GEL 100GM TUBE. TP SCH ×5 (09:09→20:39)
[2018-09-23 16:13] VITALS: BP 100/59
[2018-09-23] MEDS: traZODone 100 MG TABLET. PO SCH (20:21)
[2018-09-23] MEDS: INSULIN GLARGINE 300 UNITS/3 ML INSULN.PEN. SQ SCH (20:22)
--- NOTE | 2018-09-23 22:48 | PN ---
DATE: 09/21/2018 PSYCHIATRIC PROGRESS NOTE This late entry of 09/21/2018, covers elements not covered in my initial note. SUBJECTIVE: I met with the patient in the evening. The patient slept 5-1/2 hours previous night. Overall, she is fairly cooperative, not very interactive due to being hard of hearing, unable to communicate verbally. REVIEW OF SYSTEMS: Other than above, ambulation impaired and unsteady gait. No CV, , eye system symptoms on review. MENTAL STATUS EXAM: Oriented to herself and situation. Speech as above. Abstraction fair, computation impaired, language function intact. Most communication with me is nonverbal. LABORATORY DATA: Reviewed. IMPRESSION: Unchanged from initial note. PLAN: No change from initial note. MAN Vanesa DREW MD DR: STEFAN/satya JOB#: [id number] / [id number]
--- NOTE | 2018-09-23 23:04 | PDOC ---
Exam Note: Johnnie Note: Please also refer to the separate dictated note~for this date of service dictated separately.~Patient seen individually. Discussed the patient with Nursing staff reviewed the chart.~Reviewed interim history and current functioning. Reviewed vital signs,~Labs/ Radiology~and current medications noted below. Continue current treatment with the changes noted in the dictated addendum note Assessment: Vital Signs: Vital Signs Date Time Temp Pulse Resp B/P (MAP) Pulse Ox O2 Delivery O2 Flow Rate FiO2 09/23/18 17:42 80 100/59 09/23/18 16:13 97.8 18 100 Room Air I&O Intake and Output 09/23/18 07:01 Intake Total 680 ml Balance 680 ml Intake Oral 680 ml Labs: Laboratory Tests Test 09/23/18 07:21 09/23/18 11:47 09/23/18 17:12 09/23/18 19:13 Glucose (Fingerstick) 85 mg/dL (70-99) 128 mg/dL (70-99) H 104 mg/dL (70-99) H 170 mg/dL (70-99) H Current Medications: Meds: Current Medications Acetaminophen (Tylenol) 650 mg PRN Q6HRS PRN PO PAIN / TEMP Last administered on 09/23/18at 06:09; Start 08/11/18 at 21:00 Multi-Ingredient Ointment (Analgesic Dyer) 1 yiama PRN QID PRN TP MUSCLE PAIN; Start 08/11/18 at 21:00 Al Hydroxide/Mg Hydroxide (Mylanta Plus Xs) 15 ml PRN AFTMEALHC PRN PO DYSPEPSIA; Start 08/11/18 at 21:00 Magnesium Hydroxide (Milk Of Magnesia) 2,400 mg PRN QHS PRN PO CONSTIPATION; Start 08/11/18 at 21:00 Alprazolam (Xanax) 0.5 mg PRN Q6HRS PRN PO ANXIETY / AGITATION Last administered on 08/21/18at 20:06; Start 08/11/18 at 22:30 Divalproex Sodium (Depakote Sprinkles) 250 mg BIDWMEALS PO Last administered on 08/13/18at 18:08; Start 08/12/18 at 08:00; Stop 08/13/18 at 20:26; Status DC Duloxetine HCl (Cymbalta) 60 mg BIDWMEALS PO Last administered on 08/13/18at 18 :08; Start 08/12/18 at 08:00; Stop 08/13/18 at 20:26; Status DC Risperidone (RisperDAL) 2 mg BIDWMEALS PO Last administered on 08/14/18at 17:45 ; Start 08/12/18 at 08:00; Stop 08/14/18 at 18:45; Status DC Trazodone HCl (Desyrel) 100 mg HS PO Last administered on 09/23/18 20:21; Start 08/11/18 at 22:30 Ascorbic Acid (Vitamin C) 500 mg BIDWMEALS PO Last administered on 09/23/18 17: 42; Start 08/12/18 at 08:00 Calcium Carbonate/ Glycine (Tums) 500 mg PRN Q6HRS PRN PO INDIGESTION; Start 08/11/18 at 22:15 Vitamin D (Vitamin D3) 2,000 unit DAILY PO Last administered on 09/23/18 09:05 ; Start 08/12/18 at 09:00 Diclofenac Sodium (Voltaren) 1 yaima QID TP Last administered on 09/23/18 20:39; Start 08/12/18 at 09:00 Guaifenesin (Mucinex Er) 600 mg BIDWMEALS PO Last administered on 09/23/18 17: 42; Start 08/12/18 at 08:00 Acetaminophen/ Hydrocodone Bitart (Lortab 5/325) 1 tab PRN Q6HRS PRN PO PAIN Last administered on 09/08/18 17:32; Start 08/11/18 at 22:15 Levothyroxine Sodium (Synthroid) 100 mcg DAILY06 PO Last administered on 09:04; Start 08/12/18 at 06:00 Lisinopril (Prinivil) 10 mg DAILY PO Last administered on 09/22/18 09:03; Start 08/12/18 at 09:00 Nitroglycerin (Nitrostat) 0.4 mg PRN Q5MIN PRN SL CHEST PAIN; Start 08/11/18 at 22:15 Nystatin (Nystop) 1 yaima BID TP Last administered on 09/15/18 08:38; Start at 09:00; Stop 09/15/18 at 14:19; Status DC Allopurinol (Zyloprim) 100 mg DAILY PO Last administered on 09/23/18 09:03; Start 08/12/18 at 09:00 Carvedilol (Coreg) 12.5 mg BIDWMEALS PO Last administered on 09/03/18 08:42; Start 08/12/18 at 08:00; Stop 09/04/18 at 11:25; Status DC Folic Acid (Folic Acid) 1 mg DAILY PO Last administered on 09/23/18 09:05; Start 08/12/18 at 09:00 Furosemide (Lasix) 40 mg DAILY PO Last administered on 09/13/18 09:12; Start 08/12/18 at 09:00; Stop 09/13/18 at 17:08; Status DC Insulin Human Lispro (HumaLOG) 5 units TIDWMEALS SQ Last administered on 12:48; Start 08/12/18 at 08:00 Insulin Glargine (Lantus) 10 units QHS SQ Last administered on 09/23/18 20:22; Start 08/11/18 at 23:00 Loperamide HCl (Imodium) 2 mg PRN Q6HRS PRN PO DIARRHEA; Start 08/11/18 at 22: 45 Non-Formulary Medication (Magnesium Hydroxide (Milk Of Magnesia)) 2,400 mg PRN DAILY PRN PO CONSTIPATION; Start 08/11/18 at 22:15; Status UNV Metformin HCl (Glucophage) 1,000 mg BIDWMEALS PO Last administered on 09/23/18 17:42; Start 08/12/18 at 08:00 Methotrexate (Rheumatrex) 15 mg WEEKLY PO Last administered on 09/22/18 09:09 ; Start 08/18/18 at 09:00 Multivitamins/ Calcium (Thera-M Plus) 1 tab DAILY PO Last administered on 09:06; Start 08/12/18 at 09:00 Glucose (Insta-Glucose) 15 gm PRN Q15MIN PRN PO LOW BLOOD SUGAR; Start at 08:15 Divalproex Sodium (Depakote Sprinkles) 500 mg BIDWMEALS PO ; Start 08/13/18 at 20:27; Stop 08/13/18 at 20:36; Status DC Duloxetine HCl (Cymbalta) 60 mg DAILY PO Last administered on 09/23/18at 09:04; Start 08/14/18 at 09:00 Divalproex Sodium (Depakote Sprinkles) 500 mg BIDWMEALS PO Last administered on 09/23/18at 17:42; Start 08/14/18 at 08:00 Risperidone (RisperDAL) 1.5 mg DAILY PO ; Start 08/14/18 at 19:00; Stop at 19:00; Status DC Risperidone (RisperDAL) 2 mg HS PO Last administered on 08/16/18at 18:51; Start 08/14/18 at 21:00; Stop 08/17/18 at 18:30; Status DC Risperidone (RisperDAL) 1.5 mg HS PO ; Start 08/18/18 at 21:00; Stop 08/18/18 at 21:00; Status DC Risperidone (RisperDAL) 1.5 mg DAILY PO Last administered on 08/17/18at 08:08; Start 08/15/18 at 09:00; Stop 08/17/18 at 18:30; Status DC Amantadine HCl (Symmetrel) 100 mg DAILY PO Last administered on 08/23/18at 08:00 ; Start 08/17/18 at 09:00; Stop 08/23/18 at 21:37; Status DC Risperidone (RisperDAL) 1.5 mg BID PO Last administered on 08/19/18at 08:15; Start 08/17/18 at 21:00; Stop 08/19/18 at 15:58; Status DC Risperidone (RisperDAL) 1 mg BID PO Last administered on 08/22/18at 11:33; Start 08/19/18 at 21:00; Stop 08/22/18 at 17:30; Status DC Risperidone (RisperDAL) 1 mg QHS PO Last administered on 08/24/18at 20:41; Start 08/22/18 at 21:00; Stop 08/25/18 at 18:41; Status DC Risperidone (RisperDAL) 0.5 mg DAILY PO Last administered on 08/25/18at 11:14; Start 08/23/18 at 09:00; Stop 08/25/18 at 09:00; Status DC Amantadine HCl (Symmetrel) 100 mg BID PO Last administered on 09/23/18 20:21; Start 08/24/18 at 09:00 Risperidone (RisperDAL) 1.5 mg BID PO Last administered on 09/23/18 20:21; Start 08/26/18 at 09:00 Risperidone (RisperDAL) 2 mg HS PO Last administered on 08/25/18 20:03; Start 08/25/18 at 21:00; Stop 08/25/18 at 21:01; Status DC Trazodone HCl (Desyrel) 100 mg PRN QHS PRN PO INSOMNIA Last administered on 08/31 02:29; Start 08/30/18 at 18:45 Potassium Chloride (Klor-Con) 20 meq TID PO Last administered on 09/03/18 14: 25; Start 08/31/18 at 21:00; Stop 09/03/18 at 17:14; Status DC Doxycycline Hyclate (Vibra-Tab) 100 mg BID PO Last administered on 09/13/18 20 :13; Start 09/03/18 at 21:00; Stop 09/13/18 at 20:59; Status DC Lactobacillus Rhamnosus (Culturelle) 1 cap BID PO Last administered on 20:21; Start 09/03/18 at 21:00 Carvedilol (Coreg) 6.25 mg BIDWMEALS PO Last administered on 09/23/18 17:42; Start 09/04/18 at 17:00 Aspirin (Aspirin Enteric Coated) 81 mg DAILYWBKFT PO Last administered on 09:05; Start 09/14/18 at 08:00 Furosemide (Lasix) 40 mg BID PO Last administered on 09/15/18 08:36; Start at 21:00; Stop 09/15/18 at 11:23; Status DC Potassium Chloride (Klor-Con) 20 meq BID PO Last administered on 09/15/18 08: 35; Start 09/13/18 at 21:00; Stop 09/15/18 at 11:23; Status DC Furosemide (Lasix) 40 mg DAILY PO Last administered on 2/1/19at 09:04; Start at 09:00 Potassium Chloride (Klor-Con) 20 meq DAILY PO Last administered on 09/23/18at 09: 06; Start 09/16/18 at 09:00 Nystatin (Nystop) 1 yaima TID TP Last administered on 09/23/18at 20:21; Start 09/15 at 21:00 Levothyroxine Sodium (Synthroid) 100 mcg 1X ONCE PO Last administered on at 05:48; Start 09/23/18 at 06:00; Stop 09/23/18 at 06:01; Status DC Active Scripts Active Reported Xanax (Alprazolam) 0.5 Mg Tablet 0.5 Mg PO PRN Q6HRS PRN Hydrocodone-Apap 5-325 (Hydrocodone Bit/Acetaminophen) 1 Each Tablet 1 Tab PO PRN Q6HRS PRN Voltaren (Diclofenac Sodium) 100 Gm Gel..gram. 4 Gm TP QID Nystatin 15 Gm Powder 1 Yaima TP BID Tums (Calcium Carbonate) 200 Mg Tab.chew 2 Tab PO PRN Q6HRS PRN Nitrostat (Nitroglycerin) 0.4 Mg Tab.subl 0.4 Mg SL PRN Q5MIN PRN Milk Of Magnesia (Magnesium Hydroxide) 2,400 Mg/10 Ml Oral.susp 2,400 Mg PO PRN DAILY PRN Loperamide (Loperamide Hcl) 2 Mg Tablet 2 Mg PO PRN Q6HRS PRN Vitamin C (Ascorbic Acid) 500 Mg Tablet 500 Mg PO BIDWMEALS Risperdal (Risperidone) 2 Mg Tablet 2 Mg PO BIDWMEALS Mucinex (Guaifenesin) 600 Mg Tablet.er 600 Mg PO BIDWMEALS Metformin Hcl 1,000 Mg Tablet 1,000 Mg PO BIDWMEALS Cymbalta (Duloxetine Hcl) 60 Mg Capsule.dr 60 Mg PO BIDWMEALS Depakote Sprinkle (Divalproex Sodium) 125 Mg Cap.sprink 250 Mg PO BIDWMEALS Coreg (Carvedilol) 12.5 Mg Tablet 12.5 Mg PO BIDWMEALS Vitamin D3 (Cholecalciferol (Vitamin D3)) 1,000 Unit Tablet 2,000 Unit PO DAILY Trazodone Hcl 100 Mg Tablet 100 Mg PO HS Multivitamins (Multivitamin) 1 Each Tablet 1 Tab PO DAILY Methotrexate (Methotrexate Sodium) 2.5 Mg Tablet 15 Mg PO WEEKLY Lisinopril 10 Mg Tablet 10 Mg PO DAILY Levothyroxine Sodium 100 Mcg Tablet 100 Mcg PO DAILYAC Lasix (Furosemide) 40 Mg Tablet 40 Mg PO DAILY Folic Acid 1 Mg Tablet 1 Mg PO DAILY Allopurinol 100 Mg Tablet 100 Mg PO DAILY Novolog (Insulin Aspart) 100 Unit/1 Ml Vial 5 Unit SQ TIDWMEALS Levemir (Insulin Detemir) 100 Unit/1 Ml Vial 10 Unit SQ HS I have reviewed the current psychotropics carefully including drug interactions. Risk benefit ratio favors no change other than as noted in my dictated progress note. Diagnosis: Problems: (1) Anxiety disorder (2) Major depressive disorder, recurrent episode (3) Impulse control disorder (4) Dementia in Alzheimer's disease with delusions (5) Dementia in Alzheimer's disease with depression (6) Dementia, vascular, with delusions (7) Dementia, vascular, with depression KAITLIN DREW MD Sep 23, 2018 23:04
--- NOTE | 2018-09-23 23:20 | PN ---
DATE: 09/22/2018 This is a late entry for 09/22/2018 and covers elements not covered in my initial note. SUBJECTIVE: I met with the patient in the evening. The patient was staffed at a treatment team meeting with the entire team in the morning. Review of the patient's history, diagnosis, placement options. Behaviorally, she is doing better, not aggressive. REVIEW OF SYSTEMS: Unable to speak, vision and/or here. Most communication is nonverbal or on the white board. No CV, GI, system symptoms on review. MENTAL STATUS EXAM: Oriented to herself and situation. Speech is as above. Abstraction fair, computation impaired, language function intact, attention span short. Mood and affect remain somewhat withdrawn. LABORATORY DATA: Reviewed. IMPRESSION: Unchanged from initial note. PLAN: No change from initial note. MAN Vanesa DREW MD DR: STEFAN/satya JOB#: [id number] / [id number]
[2018-09-24] MEDS: LEVOTHYROXINE 100 MCG TABLET PO SCH (06:25)
[2018-09-24 06:28] VITALS: BP 93/56
[2018-09-24] MEDS: INSULIN LISPRO 300 UNITS/3 ML INSULN.PEN. SQ SCH ×3 (08:45→16:56)
[2018-09-24] MEDS: DIVALPROEX 125 MG CAP.SPRINK PO SCH ×2 (08:48→16:53)
[2018-09-24] MEDS: ASPIRIN ENTERIC COATED 81 MG TABLET.DR. PO SCH (08:48)
[2018-09-24] MEDS: CARVEDILOL 6.25 MG TABLET PO SCH ×2 (08:48→16:54)
[2018-09-24] MEDS: metFORMIN 500 MG TABLET PO SCH ×2 (08:49→16:53)
[2018-09-24] MEDS: ASCORBIC ACID 500 MG TABLET PO SCH ×2 (08:50→16:54)
[2018-09-24] MEDS: risperiDONE 0.5 MG TABLET. PO SCH ×2 (08:51→20:23)
[2018-09-24] MEDS: LISINOPRIL 10 MG TABLET PO SCH (08:51)
[2018-09-24] MEDS: FUROSEMIDE 40 MG TABLET PO SCH (08:51)
[2018-09-24] MEDS: LACTOBACILLUS RHAMNOSUS GG 1 CAPSULE. PO SCH ×2 (08:51→20:23)
[2018-09-24] MEDS: DULoxetine HCL 60 MG CAPSULE.DR PO SCH (08:51)
[2018-09-24] MEDS: POTASSIUM CHLORIDE 20 MEQ TABLET.ER. PO SCH (08:51)
[2018-09-24] MEDS: FOLIC ACID 1 MG TABLET PO SCH (08:51)
[2018-09-24] MEDS: AMANTADINE HCL 100 MG CAPSULE PO SCH ×2 (08:52→20:23)
[2018-09-24] MEDS: MULTIVITAMIN with MINERAL TABLET. PO SCH (08:52)
[2018-09-24] MEDS: ALLOPURINOL 100 MG TABLET. PO SCH (08:52)
[2018-09-24] MEDS: CHOLECALCIFEROL (VITAMIN D3) 1,000 UNIT TABLET PO SCH (08:52)
[2018-09-24] MEDS: DICLOFENAC SODIUM 1% TOPICAL GEL 100GM TUBE. TP SCH ×4 (08:55→20:26)
[2018-09-24] MEDS: NYSTATIN TOPICAL POWDER 15GM BOTTLE. TP SCH ×3 (08:55→20:26)
[2018-09-24 16:20] VITALS: BP 121/75
[2018-09-24] MEDS: traZODone 100 MG TABLET. PO SCH (20:23)
[2018-09-24] MEDS: INSULIN GLARGINE 300 UNITS/3 ML INSULN.PEN. SQ SCH (20:24)
--- NOTE | 2018-09-24 22:31 | PDOC ---
Exam Note: Johnnie Note: Please also refer to the separate dictated note~for this date of service dictated separately.~Patient seen individually. Discussed the patient with Nursing staff reviewed the chart.~Reviewed interim history and current functioning. Reviewed vital signs,~Labs/ Radiology~and current medications noted below. Continue current treatment with the changes noted in the dictated addendum note Assessment: Vital Signs: Vital Signs Date Time Temp Pulse Resp B/P (MAP) Pulse Ox O2 Delivery O2 Flow Rate FiO2 09/24/18 16:54 79 121/75 09/24/18 16:20 97.5 18 96 Room Air I&O Intake and Output 09/24/18 07:01 Intake Total 840 ml Balance 840 ml Intake Oral 840 ml Labs: Laboratory Tests Test 09/24/18 07:11 09/24/18 11:53 09/24/18 16:37 09/24/18 19:18 Glucose (Fingerstick) 84 mg/dL (70-99) 113 mg/dL (70-99) H 94 mg/dL (70-99) 127 mg/dL (70-99) H Current Medications: Meds: Current Medications Acetaminophen (Tylenol) 650 mg PRN Q6HRS PRN PO PAIN / TEMP Last administered on 09/23/18at 06:09; Start 08/11/18 at 21:00 Multi-Ingredient Ointment (Analgesic Plain) 1 yaima PRN QID PRN TP MUSCLE PAIN; Start 08/11/18 at 21:00 Al Hydroxide/Mg Hydroxide (Mylanta Plus Xs) 15 ml PRN AFTMEALHC PRN PO DYSPEPSIA; Start 08/11/18 at 21:00 Magnesium Hydroxide (Milk Of Magnesia) 2,400 mg PRN QHS PRN PO CONSTIPATION; Start 08/11/18 at 21:00 Alprazolam (Xanax) 0.5 mg PRN Q6HRS PRN PO ANXIETY / AGITATION Last administered on 08/21/18at 20:06; Start 08/11/18 at 22:30 Divalproex Sodium (Depakote Sprinkles) 250 mg BIDWMEALS PO Last administered on 08/13/18at 18:08; Start 08/12/18 at 08:00; Stop 08/13/18 at 20:26; Status DC Duloxetine HCl (Cymbalta) 60 mg BIDWMEALS PO Last administered on 08/13/18 18 :08; Start 08/12/18 at 08:00; Stop 08/13/18 at 20:26; Status DC Risperidone (RisperDAL) 2 mg BIDWMEALS PO Last administered on 08/14/18 17:45 ; Start 08/12/18 at 08:00; Stop 08/14/18 at 18:45; Status DC Trazodone HCl (Desyrel) 100 mg HS PO Last administered on 09/24/18 20:23; Start 08/11/18 at 22:30 Ascorbic Acid (Vitamin C) 500 mg BIDWMEALS PO Last administered on 09/24/18 16: 54; Start 08/12/18 at 08:00 Calcium Carbonate/ Glycine (Tums) 500 mg PRN Q6HRS PRN PO INDIGESTION; Start 08/11/18 at 22:15 Vitamin D (Vitamin D3) 2,000 unit DAILY PO Last administered on 09/24/18 08:52 ; Start 08/12/18 at 09:00 Diclofenac Sodium (Voltaren) 1 yaima QID TP Last administered on 09/24/18 20:26; Start 08/12/18 at 09:00 Guaifenesin (Mucinex Er) 600 mg BIDWMEALS PO Last administered on 09/24/18 16: 52; Start 08/12/18 at 08:00 Acetaminophen/ Hydrocodone Bitart (Lortab 5/325) 1 tab PRN Q6HRS PRN PO PAIN Last administered on 09/08/18 17:32; Start 08/11/18 at 22:15 Levothyroxine Sodium (Synthroid) 100 mcg DAILY06 PO Last administered on 06:25; Start 08/12/18 at 06:00 Lisinopril (Prinivil) 10 mg DAILY PO Last administered on 09/22/18 09:03; Start 08/12/18 at 09:00 Nitroglycerin (Nitrostat) 0.4 mg PRN Q5MIN PRN SL CHEST PAIN; Start 08/11/18 at 22:15 Nystatin (Nystop) 1 yaima BID TP Last administered on 09/15/18 08:38; Start at 09:00; Stop 09/15/18 at 14:19; Status DC Allopurinol (Zyloprim) 100 mg DAILY PO Last administered on 09/24/18 08:52; Start 08/12/18 at 09:00 Carvedilol (Coreg) 12.5 mg BIDWMEALS PO Last administered on 09/03/18 08:42; Start 08/12/18 at 08:00; Stop 09/04/18 at 11:25; Status DC Folic Acid (Folic Acid) 1 mg DAILY PO Last administered on 09/24/18 08:51; Start 08/12/18 at 09:00 Furosemide (Lasix) 40 mg DAILY PO Last administered on 09/13/18 09:12; Start 08/12/18 at 09:00; Stop 09/13/18 at 17:08; Status DC Insulin Human Lispro (HumaLOG) 5 units TIDWMEALS SQ Last administered on 16:56; Start 08/12/18 at 08:00 Insulin Glargine (Lantus) 10 units QHS SQ Last administered on 09/24/18 20:24; Start 08/11/18 at 23:00 Loperamide HCl (Imodium) 2 mg PRN Q6HRS PRN PO DIARRHEA; Start 08/11/18 at 22: 45 Non-Formulary Medication (Magnesium Hydroxide (Milk Of Magnesia)) 2,400 mg PRN DAILY PRN PO CONSTIPATION; Start 08/11/18 at 22:15; Status UNV Metformin HCl (Glucophage) 1,000 mg BIDWMEALS PO Last administered on 09/24/18 16:53; Start 08/12/18 at 08:00 Methotrexate (Rheumatrex) 15 mg WEEKLY PO Last administered on 09/22/18 09:09 ; Start 08/18/18 at 09:00 Multivitamins/ Calcium (Thera-M Plus) 1 tab DAILY PO Last administered on 08:52; Start 08/12/18 at 09:00 Glucose (Insta-Glucose) 15 gm PRN Q15MIN PRN PO LOW BLOOD SUGAR; Start at 08:15 Divalproex Sodium (Depakote Sprinkles) 500 mg BIDWMEALS PO ; Start 08/13/18 at 20:27; Stop 08/13/18 at 20:36; Status DC Duloxetine HCl (Cymbalta) 60 mg DAILY PO Last administered on 09/24/18 08:51; Start 08/14/18 at 09:00 Divalproex Sodium (Depakote Sprinkles) 500 mg BIDWMEALS PO Last administered on 09/24/18at 16:53; Start 08/14/18 at 08:00 Risperidone (RisperDAL) 1.5 mg DAILY PO ; Start 08/14/18 at 19:00; Stop at 19:00; Status DC Risperidone (RisperDAL) 2 mg HS PO Last administered on 08/16/18at 18:51; Start 08/14/18 at 21:00; Stop 08/17/18 at 18:30; Status DC Risperidone (RisperDAL) 1.5 mg HS PO ; Start 08/18/18 at 21:00; Stop 08/18/18 at 21:00; Status DC Risperidone (RisperDAL) 1.5 mg DAILY PO Last administered on 08/17/18at 08:08; Start 08/15/18 at 09:00; Stop 08/17/18 at 18:30; Status DC Amantadine HCl (Symmetrel) 100 mg DAILY PO Last administered on 08/23/18at 08:00 ; Start 08/17/18 at 09:00; Stop 08/23/18 at 21:37; Status DC Risperidone (RisperDAL) 1.5 mg BID PO Last administered on 08/19/18at 08:15; Start 08/17/18 at 21:00; Stop 08/19/18 at 15:58; Status DC Risperidone (RisperDAL) 1 mg BID PO Last administered on 08/22/18at 11:33; Start 08/19/18 at 21:00; Stop 08/22/18 at 17:30; Status DC Risperidone (RisperDAL) 1 mg QHS PO Last administered on 08/24/18at 20:41; Start 08/22/18 at 21:00; Stop 08/25/18 at 18:41; Status DC Risperidone (RisperDAL) 0.5 mg DAILY PO Last administered on 08/25/18at 11:14; Start 08/23/18 at 09:00; Stop 08/25/18 at 09:00; Status DC Amantadine HCl (Symmetrel) 100 mg BID PO Last administered on 09/24/18 20:23; Start 08/24/18 at 09:00 Risperidone (RisperDAL) 1.5 mg BID PO Last administered on 09/24/18 20:23; Start 08/26/18 at 09:00 Risperidone (RisperDAL) 2 mg HS PO Last administered on 08/25/18 20:03; Start 08/25/18 at 21:00; Stop 08/25/18 at 21:01; Status DC Trazodone HCl (Desyrel) 100 mg PRN QHS PRN PO INSOMNIA Last administered on 08/31 02:29; Start 08/30/18 at 18:45 Potassium Chloride (Klor-Con) 20 meq TID PO Last administered on 09/03/18 14: 25; Start 08/31/18 at 21:00; Stop 09/03/18 at 17:14; Status DC Doxycycline Hyclate (Vibra-Tab) 100 mg BID PO Last administered on 09/13/18 20 :13; Start 09/03/18 at 21:00; Stop 09/13/18 at 20:59; Status DC Lactobacillus Rhamnosus (Culturelle) 1 cap BID PO Last administered on 20:23; Start 09/03/18 at 21:00 Carvedilol (Coreg) 6.25 mg BIDWMEALS PO Last administered on 09/24/18 16:54; Start 09/04/18 at 17:00 Aspirin (Aspirin Enteric Coated) 81 mg DAILYWBKFT PO Last administered on 08:48; Start 09/14/18 at 08:00 Furosemide (Lasix) 40 mg BID PO Last administered on 09/15/18 08:36; Start at 21:00; Stop 09/15/18 at 11:23; Status DC Potassium Chloride (Klor-Con) 20 meq BID PO Last administered on 09/15/18 08: 35; Start 09/13/18 at 21:00; Stop 09/15/18 at 11:23; Status DC Furosemide (Lasix) 40 mg DAILY PO Last administered on 2/1/19at 09:04; Start at 09:00 Potassium Chloride (Klor-Con) 20 meq DAILY PO Last administered on 09/24/18 08: 51; Start 09/16/18 at 09:00 Nystatin (Nystop) 1 yaima TID TP Last administered on 09/24/18at 20:26; Start 09/15 at 21:00 Levothyroxine Sodium (Synthroid) 100 mcg 1X ONCE PO Last administered on at 05:48; Start 09/23/18 at 06:00; Stop 09/23/18 at 06:01; Status DC Active Scripts Active Reported Xanax (Alprazolam) 0.5 Mg Tablet 0.5 Mg PO PRN Q6HRS PRN Hydrocodone-Apap 5-325 (Hydrocodone Bit/Acetaminophen) 1 Each Tablet 1 Tab PO PRN Q6HRS PRN Voltaren (Diclofenac Sodium) 100 Gm Gel..gram. 4 Gm TP QID Nystatin 15 Gm Powder 1 Yaima TP BID Tums (Calcium Carbonate) 200 Mg Tab.chew 2 Tab PO PRN Q6HRS PRN Nitrostat (Nitroglycerin) 0.4 Mg Tab.subl 0.4 Mg SL PRN Q5MIN PRN Milk Of Magnesia (Magnesium Hydroxide) 2,400 Mg/10 Ml Oral.susp 2,400 Mg PO PRN DAILY PRN Loperamide (Loperamide Hcl) 2 Mg Tablet 2 Mg PO PRN Q6HRS PRN Vitamin C (Ascorbic Acid) 500 Mg Tablet 500 Mg PO BIDWMEALS Risperdal (Risperidone) 2 Mg Tablet 2 Mg PO BIDWMEALS Mucinex (Guaifenesin) 600 Mg Tablet.er 600 Mg PO BIDWMEALS Metformin Hcl 1,000 Mg Tablet 1,000 Mg PO BIDWMEALS Cymbalta (Duloxetine Hcl) 60 Mg Capsule.dr 60 Mg PO BIDWMEALS Depakote Sprinkle (Divalproex Sodium) 125 Mg Cap.sprink 250 Mg PO BIDWMEALS Coreg (Carvedilol) 12.5 Mg Tablet 12.5 Mg PO BIDWMEALS Vitamin D3 (Cholecalciferol (Vitamin D3)) 1,000 Unit Tablet 2,000 Unit PO DAILY Trazodone Hcl 100 Mg Tablet 100 Mg PO HS Multivitamins (Multivitamin) 1 Each Tablet 1 Tab PO DAILY Methotrexate (Methotrexate Sodium) 2.5 Mg Tablet 15 Mg PO WEEKLY Lisinopril 10 Mg Tablet 10 Mg PO DAILY Levothyroxine Sodium 100 Mcg Tablet 100 Mcg PO DAILYAC Lasix (Furosemide) 40 Mg Tablet 40 Mg PO DAILY Folic Acid 1 Mg Tablet 1 Mg PO DAILY Allopurinol 100 Mg Tablet 100 Mg PO DAILY Novolog (Insulin Aspart) 100 Unit/1 Ml Vial 5 Unit SQ TIDWMEALS Levemir (Insulin Detemir) 100 Unit/1 Ml Vial 10 Unit SQ HS I have reviewed the current psychotropics carefully including drug interactions. Risk benefit ratio favors no change other than as noted in my dictated progress note. Diagnosis: Problems: (1) Anxiety disorder (2) Major depressive disorder, recurrent episode (3) Impulse control disorder (4) Dementia in Alzheimer's disease with delusions (5) Dementia in Alzheimer's disease with depression (6) Dementia, vascular, with delusions (7) Dementia, vascular, with depression KAITLIN DREW MD Sep 24, 2018 22:31
[2018-09-25] MEDS: LEVOTHYROXINE 100 MCG TABLET PO SCH (04:44)
[2018-09-25 06:12] VITALS: BP 100/60
[2018-09-25] MEDS: CARVEDILOL 6.25 MG TABLET PO SCH ×2 (08:00→17:25)
[2018-09-25] MEDS: INSULIN LISPRO 300 UNITS/3 ML INSULN.PEN. SQ SCH ×3 (08:42→17:00)
[2018-09-25] MEDS: DIVALPROEX 125 MG CAP.SPRINK PO SCH ×2 (08:43→17:25)
[2018-09-25] MEDS: ASPIRIN ENTERIC COATED 81 MG TABLET.DR. PO SCH (08:43)
[2018-09-25] MEDS: DULoxetine HCL 60 MG CAPSULE.DR PO SCH (08:44)
[2018-09-25] MEDS: FOLIC ACID 1 MG TABLET PO SCH (08:44)
[2018-09-25] MEDS: metFORMIN 500 MG TABLET PO SCH ×2 (08:44→17:25)
[2018-09-25] MEDS: ASCORBIC ACID 500 MG TABLET PO SCH ×2 (08:44→17:25)
[2018-09-25] MEDS: POTASSIUM CHLORIDE 20 MEQ TABLET.ER. PO SCH (08:44)
[2018-09-25] MEDS: LACTOBACILLUS RHAMNOSUS GG 1 CAPSULE. PO SCH ×2 (08:44→20:33)
[2018-09-25] MEDS: FUROSEMIDE 40 MG TABLET PO SCH (08:45)
[2018-09-25] MEDS: risperiDONE 0.5 MG TABLET. PO SCH ×2 (08:45→20:33)
[2018-09-25] MEDS: AMANTADINE HCL 100 MG CAPSULE PO SCH ×2 (08:46→20:34)
[2018-09-25] MEDS: ALLOPURINOL 100 MG TABLET. PO SCH (08:47)
[2018-09-25] MEDS: NYSTATIN TOPICAL POWDER 15GM BOTTLE. TP SCH ×3 (08:48→20:34)
[2018-09-25] MEDS: DICLOFENAC SODIUM 1% TOPICAL GEL 100GM TUBE. TP SCH ×4 (08:48→20:35)
[2018-09-25] MEDS: CHOLECALCIFEROL (VITAMIN D3) 1,000 UNIT TABLET PO SCH (08:48)
[2018-09-25] MEDS: LISINOPRIL 10 MG TABLET PO SCH (09:00)
[2018-09-25] MEDS: MULTIVITAMIN with MINERAL TABLET. PO SCH (09:02)
[2018-09-25 10:43] LABS: BASO % 1 % (0-3); EOS # 0.1 x10^3/uL (0.0-0.7); EOS % 4 % (0-3); HEMATOCRIT 35.7 % (36.0-47.0); HEMOGLOBIN 11.6 g/dL (12.0-15.5); LYMPH # 1.2 x10^3/uL (1.0-4.8); LYMPH % 45 % (24-48); MEAN CORPUSCULAR HEMOGLOBIN 32 pg (25-35); MEAN CORPUSCULAR HGB CONC 33 g/dL (31-37); MEAN CORPUSCULAR VOLUME 99 fL (79-100); MONO # 0.2 x10^3/uL (0.0-1.1); MONO % 6 % (0-9); NEUT # 1.2 x10^3uL (1.8-7.7); NEUT % 44 % (31-73); PLATELET COUNT 180 x10^3/uL (140-400); RED BLOOD COUNT 3.59 x10^6/uL (3.50-5.40); RED CELL DISTRIBUTION WIDTH 19.7 % (11.5-14.5); WHITE BLOOD COUNT 2.7 x10^3/uL (4.0-11.0)
[2018-09-25 10:56] LABS: ALBUMIN 2.5 g/dL (3.4-5.0); ALBUMIN/GLOBULIN RATIO 0.7 (1.0-1.7); CALCIUM 8.8 mg/dL (8.5-10.1); CREATININE 1.1 mg/dL (0.6-1.0); GFR 50.7; POTASSIUM 4.3 mmol/L (3.5-5.1); TOTAL BILIRUBIN 0.4 mg/dL (0.2-1.0)
[2018-09-25 16:21] VITALS: BP 131/64
[2018-09-25] MEDS: traZODone 100 MG TABLET. PO SCH (20:33)
[2018-09-25] MEDS: INSULIN GLARGINE 300 UNITS/3 ML INSULN.PEN. SQ SCH (20:35)
--- NOTE | 2018-09-25 22:31 | PDOC ---
Exam Note: Johnnie Note: Please also refer to the separate dictated note~for this date of service dictated separately.~Patient seen individually. Discussed the patient with Nursing staff reviewed the chart.~Reviewed interim history and current functioning. Reviewed vital signs,~Labs/ Radiology~and current medications noted below. Continue current treatment with the changes noted in the dictated addendum note Assessment: Vital Signs: Vital Signs Date Time Temp Pulse Resp B/P (MAP) Pulse Ox O2 Delivery O2 Flow Rate FiO2 09/25/18 17:25 83 131/64 09/25/18 16:21 97.8 22 99 Room Air I&O Intake and Output 09/25/18 07:01 Intake Total 1320 ml Balance 1320 ml Intake Oral 1320 ml Labs: Laboratory Tests Test 09/25/18 07:21 09/25/18 10:20 09/25/18 11:41 09/25/18 16:22 Glucose (Fingerstick) 77 mg/dL (70-99) 105 mg/dL (70-99) H 76 mg/dL (70-99) White Blood Count 2.7 x10^3/uL (4.0-11.0) #L Red Blood Count 3.59 x10^6/uL (3.50-5.40) Hemoglobin 11.6 g/dL (12.0-15.5) L Hematocrit 35.7 % (36.0-47.0) L Mean Corpuscular Volume 99 fL (79-100) Mean Corpuscular Hemoglobin 32 pg (25-35) Mean Corpuscular Hemoglobin Concent 33 g/dL (31-37) Red Cell Distribution Width 19.7 % (11.5-14.5) H Platelet Count 180 x10^3/uL (140-400) Neutrophils (%) (Auto) 44 % (31-73) Lymphocytes (%) (Auto) 45 % (24-48) Monocytes (%) (Auto) 6 % (0-9) Eosinophils (%) (Auto) 4 % (0-3) H Basophils (%) (Auto) 1 % (0-3) Neutrophils # (Auto) 1.2 x10^3uL (1.8-7.7) L Lymphocytes # (Auto) 1.2 x10^3/uL (1.0-4.8) Monocytes # (Auto) 0.2 x10^3/uL (0.0-1.1) Eosinophils # (Auto) 0.1 x10^3/uL (0.0-0.7) Basophils # (Auto) 0.0 x10^3/uL (0.0-0.2) Sodium Level 140 mmol/L (136-145) Potassium Level 4.3 mmol/L (3.5-5.1) Chloride Level 103 mmol/L (98-107) Carbon Dioxide Level 29 mmol/L (21-32) Anion Gap 8 (6-14) Blood Urea Nitrogen 14 mg/dL (7-20) Creatinine 1.1 mg/dL (0.6-1.0) H Estimated GFR (Cockcroft-Gault) 50.7 BUN/Creatinine Ratio 13 (6-20) Glucose Level 161 mg/dL (70-99) H Calcium Level 8.8 mg/dL (8.5-10.1) Total Bilirubin 0.4 mg/dL (0.2-1.0) Aspartate Amino Transferase (AST) 21 U/L (15-37) Alanine Aminotransferase (ALT) 19 U/L (14-59) Alkaline Phosphatase 71 U/L (46-116) Total Protein 6.0 g/dL (6.4-8.2) L Albumin 2.5 g/dL (3.4-5.0) L Albumin/Globulin Ratio 0.7 (1.0-1.7) L Test 09/25/18 19:16 Glucose (Fingerstick) 151 mg/dL (70-99) H Current Medications: Meds: Current Medications Acetaminophen (Tylenol) 650 mg PRN Q6HRS PRN PO PAIN / TEMP Last administered on 09/23/18at 06:09; Start 08/11/18 at 21:00 Multi-Ingredient Ointment (Analgesic [place]) 1 yaima PRN QID PRN TP MUSCLE PAIN; Start 08/11/18 at 21:00 Al Hydroxide/Mg Hydroxide (Mylanta Plus Xs) 15 ml PRN AFTMEALHC PRN PO DYSPEPSIA; Start 08/11/18 at 21:00 Magnesium Hydroxide (Milk Of Magnesia) 2,400 mg PRN QHS PRN PO CONSTIPATION; Start 08/11/18 at 21:00 Alprazolam (Xanax) 0.5 mg PRN Q6HRS PRN PO ANXIETY / AGITATION Last administered on 08/21/18 20:06; Start 08/11/18 at 22:30 Divalproex Sodium (Depakote Sprinkles) 250 mg BIDWMEALS PO Last administered on 08/13/18at 18:08; Start 08/12/18 at 08:00; Stop 08/13/18 at 20:26; Status DC Duloxetine HCl (Cymbalta) 60 mg BIDWMEALS PO Last administered on 08/13/18at 18 :08; Start 08/12/18 at 08:00; Stop 08/13/18 at 20:26; Status DC Risperidone (RisperDAL) 2 mg BIDWMEALS PO Last administered on 08/14/18 17:45 ; Start 08/12/18 at 08:00; Stop 08/14/18 at 18:45; Status DC Trazodone HCl (Desyrel) 100 mg HS PO Last administered on 09/25/18 20:33; Start 08/11/18 at 22:30 Ascorbic Acid (Vitamin C) 500 mg BIDWMEALS PO Last administered on 09/25/18 17: 25; Start 08/12/18 at 08:00 Calcium Carbonate/ Glycine (Tums) 500 mg PRN Q6HRS PRN PO INDIGESTION; Start 08/11/18 at 22:15 Vitamin D (Vitamin D3) 2,000 unit DAILY PO Last administered on 09/25/18 08:48 ; Start 08/12/18 at 09:00 Diclofenac Sodium (Voltaren) 1 yaima QID TP Last administered on 09/25/18 20:35; Start 08/12/18 at 09:00 Guaifenesin (Mucinex Er) 600 mg BIDWMEALS PO Last administered on 09/25/18 17: 25; Start 08/12/18 at 08:00 Acetaminophen/ Hydrocodone Bitart (Lortab 5/325) 1 tab PRN Q6HRS PRN PO PAIN Last administered on 09/08/18 17:32; Start 08/11/18 at 22:15 Levothyroxine Sodium (Synthroid) 100 mcg DAILY06 PO Last administered on 04:44; Start 08/12/18 at 06:00 Lisinopril (Prinivil) 10 mg DAILY PO Last administered on 09/22/18 09:03; Start 08/12/18 at 09:00 Nitroglycerin (Nitrostat) 0.4 mg PRN Q5MIN PRN SL CHEST PAIN; Start 08/11/18 at 22:15 Nystatin (Nystop) 1 yaima BID TP Last administered on 09/15/18 08:38; Start at 09:00; Stop 09/15/18 at 14:19; Status DC Allopurinol (Zyloprim) 100 mg DAILY PO Last administered on 09/25/18 08:47; Start 08/12/18 at 09:00 Carvedilol (Coreg) 12.5 mg BIDWMEALS PO Last administered on 09/03/18 08:42; Start 08/12/18 at 08:00; Stop 09/04/18 at 11:25; Status DC Folic Acid (Folic Acid) 1 mg DAILY PO Last administered on 09/25/18 08:44; Start 08/12/18 at 09:00 Furosemide (Lasix) 40 mg DAILY PO Last administered on 09/13/18 09:12; Start 08/12/18 at 09:00; Stop 09/13/18 at 17:08; Status DC Insulin Human Lispro (HumaLOG) 5 units TIDWMEALS SQ Last administered on 12:19; Start 08/12/18 at 08:00 Insulin Glargine (Lantus) 10 units QHS SQ Last administered on 09/25/18 20:35; Start 08/11/18 at 23:00 Loperamide HCl (Imodium) 2 mg PRN Q6HRS PRN PO DIARRHEA; Start 08/11/18 at 22: 45 Non-Formulary Medication (Magnesium Hydroxide (Milk Of Magnesia)) 2,400 mg PRN DAILY PRN PO CONSTIPATION; Start 08/11/18 at 22:15; Status UNV Metformin HCl (Glucophage) 1,000 mg BIDWMEALS PO Last administered on 09/25/18 17:25; Start 08/12/18 at 08:00 Methotrexate (Rheumatrex) 15 mg WEEKLY PO Last administered on 09/22/18 09:09 ; Start 12/27/18 at 09:00 Multivitamins/ Calcium (Thera-M Plus) 1 tab DAILY PO Last administered on 09:02; Start 08/12/18 at 09:00 Glucose (Insta-Glucose) 15 gm PRN Q15MIN PRN PO LOW BLOOD SUGAR; Start at 08:15 Divalproex Sodium (Depakote Sprinkles) 500 mg BIDWMEALS PO ; Start 08/13/18 at 20:27; Stop 08/13/18 at 20:36; Status DC Duloxetine HCl (Cymbalta) 60 mg DAILY PO Last administered on 09/25/18 08:44; Start 08/14/18 at 09:00 Divalproex Sodium (Depakote Sprinkles) 500 mg BIDWMEALS PO Last administered on 09/25/18 17:25; Start 08/14/18 at 08:00 Risperidone (RisperDAL) 1.5 mg DAILY PO ; Start 08/14/18 at 19:00; Stop at 19:00; Status DC Risperidone (RisperDAL) 2 mg HS PO Last administered on 08/16/18at 18:51; Start 08/14/18 at 21:00; Stop 08/17/18 at 18:30; Status DC Risperidone (RisperDAL) 1.5 mg HS PO ; Start 08/18/18 at 21:00; Stop 08/18/18 at 21:00; Status DC Risperidone (RisperDAL) 1.5 mg DAILY PO Last administered on 08/17/18at 08:08; Start 08/15/18 at 09:00; Stop 08/17/18 at 18:30; Status DC Amantadine HCl (Symmetrel) 100 mg DAILY PO Last administered on 08/23/18at 08:00 ; Start 08/17/18 at 09:00; Stop 08/23/18 at 21:37; Status DC Risperidone (RisperDAL) 1.5 mg BID PO Last administered on 08/19/18at 08:15; Start 08/17/18 at 21:00; Stop 08/19/18 at 15:58; Status DC Risperidone (RisperDAL) 1 mg BID PO Last administered on 08/22/18at 11:33; Start 08/19/18 at 21:00; Stop 08/22/18 at 17:30; Status DC Risperidone (RisperDAL) 1 mg QHS PO Last administered on 08/24/18 20:41; Start 08/22/18 at 21:00; Stop 08/25/18 at 18:41; Status DC Risperidone (RisperDAL) 0.5 mg DAILY PO Last administered on 08/25/18 11:14; Start 08/23/18 at 09:00; Stop 08/25/18 at 09:00; Status DC Amantadine HCl (Symmetrel) 100 mg BID PO Last administered on 09/25/18 20:34; Start 08/24/18 at 09:00 Risperidone (RisperDAL) 1.5 mg BID PO Last administered on 09/25/18 20:33; Start 08/26/18 at 09:00 Risperidone (RisperDAL) 2 mg HS PO Last administered on 08/25/18 20:03; Start 08/25/18 at 21:00; Stop 08/25/18 at 21:01; Status DC Trazodone HCl (Desyrel) 100 mg PRN QHS PRN PO INSOMNIA Last administered on 08/31 02:29; Start 08/30/18 at 18:45 Potassium Chloride (Klor-Con) 20 meq TID PO Last administered on 09/03/18 14: 25; Start 08/31/18 at 21:00; Stop 09/03/18 at 17:14; Status DC Doxycycline Hyclate (Vibra-Tab) 100 mg BID PO Last administered on 09/13/18 20 :13; Start 09/03/18 at 21:00; Stop 09/13/18 at 20:59; Status DC Lactobacillus Rhamnosus (Culturelle) 1 cap BID PO Last administered on 20:33; Start 09/03/18 at 21:00 Carvedilol (Coreg) 6.25 mg BIDWMEALS PO Last administered on 09/25/18 17:25; Start 09/04/18 at 17:00 Aspirin (Aspirin Enteric Coated) 81 mg DAILYWBKFT PO Last administered on 08:43; Start 09/14/18 at 08:00 Furosemide (Lasix) 40 mg BID PO Last administered on 09/15/18 08:36; Start at 21:00; Stop 09/15/18 at 11:23; Status DC Potassium Chloride (Klor-Con) 20 meq BID PO Last administered on 09/15/18at 08: 35; Start 09/13/18 at 21:00; Stop 09/15/18 at 11:23; Status DC Furosemide (Lasix) 40 mg DAILY PO Last administered on 09/25/18 08:45; Start at 09:00 Potassium Chloride (Klor-Con) 20 meq DAILY PO Last administered on 09/25/18 08: 44; Start 09/16/18 at 09:00 Nystatin (Nystop) 1 yaima TID TP Last administered on 09/25/18at 20:34; Start 09/15 at 21:00 Levothyroxine Sodium (Synthroid) 100 mcg 1X ONCE PO Last administered on at 05:48; Start 09/23/18 at 06:00; Stop 09/23/18 at 06:01; Status DC Active Scripts Active Reported Xanax (Alprazolam) 0.5 Mg Tablet 0.5 Mg PO PRN Q6HRS PRN Hydrocodone-Apap 5-325 (Hydrocodone Bit/Acetaminophen) 1 Each Tablet 1 Tab PO PRN Q6HRS PRN Voltaren (Diclofenac Sodium) 100 Gm Gel..gram. 4 Gm TP QID Nystatin 15 Gm Powder 1 Yaima TP BID Tums (Calcium Carbonate) 200 Mg Tab.chew 2 Tab PO PRN Q6HRS PRN Nitrostat (Nitroglycerin) 0.4 Mg Tab.subl 0.4 Mg SL PRN Q5MIN PRN Milk Of Magnesia (Magnesium Hydroxide) 2,400 Mg/10 Ml Oral.susp 2,400 Mg PO PRN DAILY PRN Loperamide (Loperamide Hcl) 2 Mg Tablet 2 Mg PO PRN Q6HRS PRN Vitamin C (Ascorbic Acid) 500 Mg Tablet 500 Mg PO BIDWMEALS Risperdal (Risperidone) 2 Mg Tablet 2 Mg PO BIDWMEALS Mucinex (Guaifenesin) 600 Mg Tablet.er 600 Mg PO BIDWMEALS Metformin Hcl 1,000 Mg Tablet 1,000 Mg PO BIDWMEALS Cymbalta (Duloxetine Hcl) 60 Mg Capsule.dr 60 Mg PO BIDWMEALS Depakote Sprinkle (Divalproex Sodium) 125 Mg Cap.sprink 250 Mg PO BIDWMEALS Coreg (Carvedilol) 12.5 Mg Tablet 12.5 Mg PO BIDWMEALS Vitamin D3 (Cholecalciferol (Vitamin D3)) 1,000 Unit Tablet 2,000 Unit PO DAILY Trazodone Hcl 100 Mg Tablet 100 Mg PO HS Multivitamins (Multivitamin) 1 Each Tablet 1 Tab PO DAILY Methotrexate (Methotrexate Sodium) 2.5 Mg Tablet 15 Mg PO WEEKLY Lisinopril 10 Mg Tablet 10 Mg PO DAILY Levothyroxine Sodium 100 Mcg Tablet 100 Mcg PO DAILYAC Lasix (Furosemide) 40 Mg Tablet 40 Mg PO DAILY Folic Acid 1 Mg Tablet 1 Mg PO DAILY Allopurinol 100 Mg Tablet 100 Mg PO DAILY Novolog (Insulin Aspart) 100 Unit/1 Ml Vial 5 Unit SQ TIDWMEALS Levemir (Insulin Detemir) 100 Unit/1 Ml Vial 10 Unit SQ HS I have reviewed the current psychotropics carefully including drug interactions. Risk benefit ratio favors no change other than as noted in my dictated progress note. Diagnosis: Problems: (1) Anxiety disorder (2) Major depressive disorder, recurrent episode (3) Impulse control disorder (4) Dementia in Alzheimer's disease with delusions (5) Dementia in Alzheimer's disease with depression (6) Dementia, vascular, with delusions (7) Dementia, vascular, with depression KAITLIN DREW MD Sep 25, 2018 22:31
--- NOTE | 2018-09-25 23:33 | PN ---
DATE: 09/23/2018 PSYCHIATRIC PROGRESS NOTE This late entry 09/23/2018 covers elements not covered in my initial note. SUBJECTIVE: I met with the patient in the evening. The patient slept 7-1/2 hours previous night. She went back to bed after breakfast, has remained somewhat withdrawn, but appropriate on the unit. She is unable to speak, coherent. REVIEW OF SYSTEMS: No CV, , GI, eye system symptoms on review. MENTAL STATUS EXAM: The patient is oriented to herself and situation. Speech as above. Abstraction fair, computation impaired, language function intact, attention span short. Mood and affect somewhat withdrawn. IMPRESSION: Unchanged from initial note. PLAN: Unchanged from initial note. Much of my communication with her was nonverbal. MAN Vanesa DREW MD DR: STEFAN/satya JOB#: [id number] / [id number]
[2018-09-26] MEDS: LEVOTHYROXINE 100 MCG TABLET PO SCH (05:12)
[2018-09-26 06:18] VITALS: BP 94/53
[2018-09-26] MEDS: FUROSEMIDE 40 MG TABLET PO SCH (09:00)
[2018-09-26] MEDS: LISINOPRIL 10 MG TABLET PO SCH (09:00)
[2018-09-26] MEDS: POTASSIUM CHLORIDE 20 MEQ TABLET.ER. PO SCH (09:00)
[2018-09-26] MEDS: CARVEDILOL 6.25 MG TABLET PO SCH ×2 (09:04→17:19)
[2018-09-26] MEDS: ASPIRIN ENTERIC COATED 81 MG TABLET.DR. PO SCH (09:04)
[2018-09-26] MEDS: INSULIN LISPRO 300 UNITS/3 ML INSULN.PEN. SQ SCH ×3 (09:05→17:20)
[2018-09-26] MEDS: ASCORBIC ACID 500 MG TABLET PO SCH ×2 (09:05→17:20)
[2018-09-26] MEDS: metFORMIN 500 MG TABLET PO SCH ×2 (09:05→17:20)
[2018-09-26] MEDS: DIVALPROEX 125 MG CAP.SPRINK PO SCH ×2 (09:05→17:19)
[2018-09-26] MEDS: DULoxetine HCL 60 MG CAPSULE.DR PO SCH (09:06)
[2018-09-26] MEDS: FOLIC ACID 1 MG TABLET PO SCH (09:06)
[2018-09-26] MEDS: LACTOBACILLUS RHAMNOSUS GG 1 CAPSULE. PO SCH ×2 (09:06→21:18)
[2018-09-26] MEDS: MULTIVITAMIN with MINERAL TABLET. PO SCH (09:07)
[2018-09-26] MEDS: risperiDONE 0.5 MG TABLET. PO SCH ×2 (09:07→21:18)
[2018-09-26] MEDS: ALLOPURINOL 100 MG TABLET. PO SCH (09:07)
[2018-09-26] MEDS: AMANTADINE HCL 100 MG CAPSULE PO SCH ×2 (09:07→21:17)
[2018-09-26] MEDS: NYSTATIN TOPICAL POWDER 15GM BOTTLE. TP SCH ×3 (09:07→21:19)
[2018-09-26] MEDS: DICLOFENAC SODIUM 1% TOPICAL GEL 100GM TUBE. TP SCH ×4 (09:07→21:19)
[2018-09-26] MEDS: CHOLECALCIFEROL (VITAMIN D3) 1,000 UNIT TABLET PO SCH (09:07)
[2018-09-26 16:19] VITALS: BP 116/78
[2018-09-26] MEDS: traZODone 100 MG TABLET. PO SCH (21:18)
[2018-09-26] MEDS: INSULIN GLARGINE 300 UNITS/3 ML INSULN.PEN. SQ SCH (21:22)
--- NOTE | 2018-09-26 22:07 | PN ---
DATE: 09/24/2018 This late entry for 09/24/2018 covers elements not covered in my initial note. SUBJECTIVE: I met with the patient in the evening. The patient slept 7-3/4 hours previous night. She remains fairly withdrawn, but appropriate, not aggressive, disruptive, not yelling or throwing things. REVIEW OF SYSTEMS: Unable to speak or hear. Most communication is nonverbal and sign language. No CV, , pulmonary, eye system symptoms on review. MENTAL STATUS EXAM: Oriented to herself, situations. Speech as above. Abstraction fair, computation impaired, language function intact. Mood and affect somewhat withdrawn. LABORATORY DATA: Reviewed. IMPRESSION: Unchanged from initial note. PLAN: No change from initial note. KAITLIN DREW MD DR: STEFAN/satya JOB#: [id number] / [id number]
--- NOTE | 2018-09-26 22:38 | PDOC ---
Exam Note: Johnnie Note: Please also refer to the separate dictated note~for this date of service dictated separately.~Patient seen individually. Discussed the patient with Nursing staff reviewed the chart.~Reviewed interim history and current functioning. Reviewed vital signs,~Labs/ Radiology~and current medications noted below. Continue current treatment with the changes noted in the dictated addendum note Assessment: Vital Signs: Vital Signs Date Time Temp Pulse Resp B/P (MAP) Pulse Ox O2 Delivery O2 Flow Rate FiO2 09/26/18 17:19 97 116/78 09/26/18 16:19 97.7 16 99 09/25/18 16:21 Room Air I&O Intake and Output 09/26/18 07:01 Intake Total 1080 ml Balance 1080 ml Intake Oral 1080 ml # Voids 2 # Bowel Movements 1 Labs: Laboratory Tests Test 09/26/18 07:22 09/26/18 11:31 09/26/18 20:40 Glucose (Fingerstick) 68 mg/dL (70-99) L 78 mg/dL (70-99) 109 mg/dL (70-99) H Current Medications: Meds: Current Medications Acetaminophen (Tylenol) 650 mg PRN Q6HRS PRN PO PAIN / TEMP Last administered on 09/23/18at 06:09; Start 08/11/18 at 21:00 Multi-Ingredient Ointment (Analgesic [place]) 1 yaima PRN QID PRN TP MUSCLE PAIN; Start 08/11/18 at 21:00 Al Hydroxide/Mg Hydroxide (Mylanta Plus Xs) 15 ml PRN AFTMEALHC PRN PO DYSPEPSIA; Start 08/11/18 at 21:00 Magnesium Hydroxide (Milk Of Magnesia) 2,400 mg PRN QHS PRN PO CONSTIPATION; Start 08/11/18 at 21:00 Alprazolam (Xanax) 0.5 mg PRN Q6HRS PRN PO ANXIETY / AGITATION Last administered on 08/21/18at 20:06; Start 08/11/18 at 22:30 Divalproex Sodium (Depakote Sprinkles) 250 mg BIDWMEALS PO Last administered on 08/13/18at 18:08; Start 08/12/18 at 08:00; Stop 08/13/18 at 20:26; Status DC Duloxetine HCl (Cymbalta) 60 mg BIDWMEALS PO Last administered on 08/13/18 18 :08; Start 08/12/18 at 08:00; Stop 08/13/18 at 20:26; Status DC Risperidone (RisperDAL) 2 mg BIDWMEALS PO Last administered on 08/14/18at 17:45 ; Start 08/12/18 at 08:00; Stop 08/14/18 at 18:45; Status DC Trazodone HCl (Desyrel) 100 mg HS PO Last administered on 09/26/18 21:18; Start 08/11/18 at 22:30 Ascorbic Acid (Vitamin C) 500 mg BIDWMEALS PO Last administered on 09/26/18 17: 20; Start 08/12/18 at 08:00 Calcium Carbonate/ Glycine (Tums) 500 mg PRN Q6HRS PRN PO INDIGESTION; Start 08/11/18 at 22:15 Vitamin D (Vitamin D3) 2,000 unit DAILY PO Last administered on 09/26/18 09:07 ; Start 08/12/18 at 09:00 Diclofenac Sodium (Voltaren) 1 yaima QID TP Last administered on 09/26/18 21:19; Start 08/12/18 at 09:00 Guaifenesin (Mucinex Er) 600 mg BIDWMEALS PO Last administered on 09/26/18 17: 20; Start 08/12/18 at 08:00 Acetaminophen/ Hydrocodone Bitart (Lortab 5/325) 1 tab PRN Q6HRS PRN PO PAIN Last administered on 09/08/18 17:32; Start 08/11/18 at 22:15 Levothyroxine Sodium (Synthroid) 100 mcg DAILY06 PO Last administered on 05:12; Start 08/12/18 at 06:00 Lisinopril (Prinivil) 10 mg DAILY PO Last administered on 09/22/18 09:03; Start 08/12/18 at 09:00 Nitroglycerin (Nitrostat) 0.4 mg PRN Q5MIN PRN SL CHEST PAIN; Start 08/11/18 at 22:15 Nystatin (Nystop) 1 yaima BID TP Last administered on 09/15/18 08:38; Start at 09:00; Stop 09/15/18 at 14:19; Status DC Allopurinol (Zyloprim) 100 mg DAILY PO Last administered on 09/26/18 09:07; Start 08/12/18 at 09:00 Carvedilol (Coreg) 12.5 mg BIDWMEALS PO Last administered on 09/03/18 08:42; Start 08/12/18 at 08:00; Stop 09/04/18 at 11:25; Status DC Folic Acid (Folic Acid) 1 mg DAILY PO Last administered on 09/26/18 09:06; Start 08/12/18 at 09:00 Furosemide (Lasix) 40 mg DAILY PO Last administered on 09/13/18 09:12; Start 08/12/18 at 09:00; Stop 09/13/18 at 17:08; Status DC Insulin Human Lispro (HumaLOG) 5 units TIDWMEALS SQ Last administered on 12:19; Start 08/12/18 at 08:00 Insulin Glargine (Lantus) 10 units QHS SQ Last administered on 09/26/18 21:22; Start 08/11/18 at 23:00 Loperamide HCl (Imodium) 2 mg PRN Q6HRS PRN PO DIARRHEA; Start 08/11/18 at 22: 45 Non-Formulary Medication (Magnesium Hydroxide (Milk Of Magnesia)) 2,400 mg PRN DAILY PRN PO CONSTIPATION; Start 08/11/18 at 22:15; Status UNV Metformin HCl (Glucophage) 1,000 mg BIDWMEALS PO Last administered on 09/26/18 17:20; Start 08/12/18 at 08:00 Methotrexate (Rheumatrex) 15 mg WEEKLY PO Last administered on 09/22/18 09:09 ; Start 08/18/18 at 09:00 Multivitamins/ Calcium (Thera-M Plus) 1 tab DAILY PO Last administered on 09:07; Start 08/12/18 at 09:00 Glucose (Insta-Glucose) 15 gm PRN Q15MIN PRN PO LOW BLOOD SUGAR; Start at 08:15 Divalproex Sodium (Depakote Sprinkles) 500 mg BIDWMEALS PO ; Start 08/13/18 at 20:27; Stop 08/13/18 at 20:36; Status DC Duloxetine HCl (Cymbalta) 60 mg DAILY PO Last administered on 09/26/18 09:06; Start 08/14/18 at 09:00 Divalproex Sodium (Depakote Sprinkles) 500 mg BIDWMEALS PO Last administered on 09/26/18at 17:19; Start 08/14/18 at 08:00 Risperidone (RisperDAL) 1.5 mg DAILY PO ; Start 08/14/18 at 19:00; Stop at 19:00; Status DC Risperidone (RisperDAL) 2 mg HS PO Last administered on 08/16/18at 18:51; Start 08/14/18 at 21:00; Stop 08/17/18 at 18:30; Status DC Risperidone (RisperDAL) 1.5 mg HS PO ; Start 08/18/18 at 21:00; Stop 08/18/18 at 21:00; Status DC Risperidone (RisperDAL) 1.5 mg DAILY PO Last administered on 08/17/18at 08:08; Start 08/15/18 at 09:00; Stop 08/17/18 at 18:30; Status DC Amantadine HCl (Symmetrel) 100 mg DAILY PO Last administered on 08/23/18at 08:00 ; Start 08/17/18 at 09:00; Stop 08/23/18 at 21:37; Status DC Risperidone (RisperDAL) 1.5 mg BID PO Last administered on 08/19/18at 08:15; Start 08/17/18 at 21:00; Stop 08/19/18 at 15:58; Status DC Risperidone (RisperDAL) 1 mg BID PO Last administered on 08/22/18at 11:33; Start 08/19/18 at 21:00; Stop 08/22/18 at 17:30; Status DC Risperidone (RisperDAL) 1 mg QHS PO Last administered on 08/24/18at 20:41; Start 08/22/18 at 21:00; Stop 08/25/18 at 18:41; Status DC Risperidone (RisperDAL) 0.5 mg DAILY PO Last administered on 08/25/18at 11:14; Start 08/23/18 at 09:00; Stop 08/25/18 at 09:00; Status DC Amantadine HCl (Symmetrel) 100 mg BID PO Last administered on 09/26/18 21:17; Start 08/24/18 at 09:00 Risperidone (RisperDAL) 1.5 mg BID PO Last administered on 09/26/18 21:18; Start 08/26/18 at 09:00 Risperidone (RisperDAL) 2 mg HS PO Last administered on 08/25/18 20:03; Start 08/25/18 at 21:00; Stop 08/25/18 at 21:01; Status DC Trazodone HCl (Desyrel) 100 mg PRN QHS PRN PO INSOMNIA Last administered on 08/31 02:29; Start 08/30/18 at 18:45 Potassium Chloride (Klor-Con) 20 meq TID PO Last administered on 09/03/18 14: 25; Start 08/31/18 at 21:00; Stop 09/03/18 at 17:14; Status DC Doxycycline Hyclate (Vibra-Tab) 100 mg BID PO Last administered on 09/13/18 20 :13; Start 09/03/18 at 21:00; Stop 09/13/18 at 20:59; Status DC Lactobacillus Rhamnosus (Culturelle) 1 cap BID PO Last administered on 21:18; Start 09/03/18 at 21:00 Carvedilol (Coreg) 6.25 mg BIDWMEALS PO Last administered on 09/26/18 17:19; Start 09/04/18 at 17:00 Aspirin (Aspirin Enteric Coated) 81 mg DAILYWBKFT PO Last administered on 09:04; Start 09/14/18 at 08:00 Furosemide (Lasix) 40 mg BID PO Last administered on 09/15/18 08:36; Start at 21:00; Stop 09/15/18 at 11:23; Status DC Potassium Chloride (Klor-Con) 20 meq BID PO Last administered on 09/15/18 08: 35; Start 09/13/18 at 21:00; Stop 09/15/18 at 11:23; Status DC Furosemide (Lasix) 40 mg DAILY PO Last administered on 2/3/19at 08:45; Start at 09:00 Potassium Chloride (Klor-Con) 20 meq DAILY PO Last administered on 09/25/18at 08: 44; Start 09/16/18 at 09:00 Nystatin (Nystop) 1 yaima TID TP Last administered on 09/26/18at 21:19; Start 09/15 at 21:00 Levothyroxine Sodium (Synthroid) 100 mcg 1X ONCE PO Last administered on at 05:48; Start 09/23/18 at 06:00; Stop 09/23/18 at 06:01; Status DC Active Scripts Active Reported Xanax (Alprazolam) 0.5 Mg Tablet 0.5 Mg PO PRN Q6HRS PRN Hydrocodone-Apap 5-325 (Hydrocodone Bit/Acetaminophen) 1 Each Tablet 1 Tab PO PRN Q6HRS PRN Voltaren (Diclofenac Sodium) 100 Gm Gel..gram. 4 Gm TP QID Nystatin 15 Gm Powder 1 Yaima TP BID Tums (Calcium Carbonate) 200 Mg Tab.chew 2 Tab PO PRN Q6HRS PRN Nitrostat (Nitroglycerin) 0.4 Mg Tab.subl 0.4 Mg SL PRN Q5MIN PRN Milk Of Magnesia (Magnesium Hydroxide) 2,400 Mg/10 Ml Oral.susp 2,400 Mg PO PRN DAILY PRN Loperamide (Loperamide Hcl) 2 Mg Tablet 2 Mg PO PRN Q6HRS PRN Vitamin C (Ascorbic Acid) 500 Mg Tablet 500 Mg PO BIDWMEALS Risperdal (Risperidone) 2 Mg Tablet 2 Mg PO BIDWMEALS Mucinex (Guaifenesin) 600 Mg Tablet.er 600 Mg PO BIDWMEALS Metformin Hcl 1,000 Mg Tablet 1,000 Mg PO BIDWMEALS Cymbalta (Duloxetine Hcl) 60 Mg Capsule.dr 60 Mg PO BIDWMEALS Depakote Sprinkle (Divalproex Sodium) 125 Mg Cap.sprink 250 Mg PO BIDWMEALS Coreg (Carvedilol) 12.5 Mg Tablet 12.5 Mg PO BIDWMEALS Vitamin D3 (Cholecalciferol (Vitamin D3)) 1,000 Unit Tablet 2,000 Unit PO DAILY Trazodone Hcl 100 Mg Tablet 100 Mg PO HS Multivitamins (Multivitamin) 1 Each Tablet 1 Tab PO DAILY Methotrexate (Methotrexate Sodium) 2.5 Mg Tablet 15 Mg PO WEEKLY Lisinopril 10 Mg Tablet 10 Mg PO DAILY Levothyroxine Sodium 100 Mcg Tablet 100 Mcg PO DAILYAC Lasix (Furosemide) 40 Mg Tablet 40 Mg PO DAILY Folic Acid 1 Mg Tablet 1 Mg PO DAILY Allopurinol 100 Mg Tablet 100 Mg PO DAILY Novolog (Insulin Aspart) 100 Unit/1 Ml Vial 5 Unit SQ TIDWMEALS Levemir (Insulin Detemir) 100 Unit/1 Ml Vial 10 Unit SQ HS I have reviewed the current psychotropics carefully including drug interactions. Risk benefit ratio favors no change other than as noted in my dictated progress note. Diagnosis: Problems: (1) Anxiety disorder (2) Major depressive disorder, recurrent episode (3) Impulse control disorder (4) Dementia in Alzheimer's disease with delusions (5) Dementia in Alzheimer's disease with depression (6) Dementia, vascular, with delusions (7) Dementia, vascular, with depression KAITLIN DREW MD Sep 26, 2018 22:38
--- NOTE | 2018-09-27 00:12 | PN ---
DATE: 09/25/2018 This late entry for 09/25/2018 covers elements not covered in my initial note. SUBJECTIVE: I met with the patient in the evening. The patient slept 8-1/4 hours previous night. Much of communication with her is nonverbal, sign language or writing on the white board since she is unable to speak or hear. She has, otherwise, been cooperative. She does ambulate on her own. MENTAL STATUS EXAM: Oriented to herself and situation. Speech as above. Abstraction fair, computation impaired, language function intact, attention span short. Mood and affect remains somewhat withdrawn. No psychotic symptoms, suicidal or homicidal ideation. LABORATORY DATA: Reviewed. IMPRESSION: Unchanged from initial note. PLAN: No change from initial note. KAITLIN DREW MD DR: STEFAN/satya JOB#: [id number] / [id number]
[2018-09-27] MEDS: LEVOTHYROXINE 100 MCG TABLET PO SCH (06:20)
[2018-09-27 06:21] VITALS: BP 117/62
[2018-09-27] MEDS: ACETAMINOPHEN 325 MG TABLET PO PRN (06:27)
[2018-09-27] MEDS: INSULIN LISPRO 300 UNITS/3 ML INSULN.PEN. SQ SCH ×3 (08:00→17:21)
[2018-09-27] MEDS: DULoxetine HCL 60 MG CAPSULE.DR PO SCH (09:34)
[2018-09-27] MEDS: ASCORBIC ACID 500 MG TABLET PO SCH ×2 (09:34→17:08)
[2018-09-27] MEDS: CHOLECALCIFEROL (VITAMIN D3) 1,000 UNIT TABLET PO SCH (09:35)
[2018-09-27] MEDS: DIVALPROEX 125 MG CAP.SPRINK PO SCH ×2 (09:35→17:08)
[2018-09-27] MEDS: CARVEDILOL 6.25 MG TABLET PO SCH ×2 (09:36→17:08)
[2018-09-27] MEDS: LACTOBACILLUS RHAMNOSUS GG 1 CAPSULE. PO SCH ×2 (09:36→20:30)
[2018-09-27] MEDS: ASPIRIN ENTERIC COATED 81 MG TABLET.DR. PO SCH (09:36)
[2018-09-27] MEDS: LISINOPRIL 10 MG TABLET PO SCH (09:36)
[2018-09-27] MEDS: ALLOPURINOL 100 MG TABLET. PO SCH (09:36)
[2018-09-27] MEDS: risperiDONE 0.5 MG TABLET. PO SCH ×2 (09:37→20:30)
[2018-09-27] MEDS: metFORMIN 500 MG TABLET PO SCH ×2 (09:37→17:07)
[2018-09-27] MEDS: FOLIC ACID 1 MG TABLET PO SCH (09:37)
[2018-09-27] MEDS: POTASSIUM CHLORIDE 20 MEQ TABLET.ER. PO SCH (09:37)
[2018-09-27] MEDS: FUROSEMIDE 40 MG TABLET PO SCH (09:37)
[2018-09-27] MEDS: NYSTATIN TOPICAL POWDER 15GM BOTTLE. TP SCH ×3 (09:40→20:30)
[2018-09-27] MEDS: DICLOFENAC SODIUM 1% TOPICAL GEL 100GM TUBE. TP SCH ×4 (09:40→20:30)
[2018-09-27] MEDS: AMANTADINE HCL 100 MG CAPSULE PO SCH ×2 (09:40→20:31)
[2018-09-27] MEDS: MULTIVITAMIN with MINERAL TABLET. PO SCH (09:44)
[2018-09-27 17:12] VITALS: BP 123/74
[2018-09-27] MEDS: traZODone 100 MG TABLET. PO SCH (20:30)
[2018-09-27] MEDS: INSULIN GLARGINE 300 UNITS/3 ML INSULN.PEN. SQ SCH (20:34)
--- NOTE | 2018-09-27 22:56 | PDOC ---
Exam Note: Johnnie Note: Please also refer to the separate dictated note~for this date of service dictated separately.~Patient seen individually. Discussed the patient with Nursing staff reviewed the chart.~Reviewed interim history and current functioning. Reviewed vital signs,~Labs/ Radiology~and current medications noted below. Continue current treatment with the changes noted in the dictated addendum note Assessment: Vital Signs: Vital Signs Date Time Temp Pulse Resp B/P (MAP) Pulse Ox O2 Delivery O2 Flow Rate FiO2 09/27/18 17:12 97.1 95 20 123/74 (90) 97 09/25/18 16:21 Room Air I&O Intake and Output 09/27/18 07:01 Intake Total 1200 ml Balance 1200 ml Intake Oral 1200 ml Labs: Laboratory Tests Test 09/27/18 07:36 09/27/18 11:57 09/27/18 17:11 09/27/18 19:18 Glucose (Fingerstick) 81 mg/dL (70-99) 120 mg/dL (70-99) H 112 mg/dL (70-99) H 138 mg/dL (70-99) H Current Medications: Meds: Current Medications Acetaminophen (Tylenol) 650 mg PRN Q6HRS PRN PO PAIN / TEMP Last administered on 09/27/18at 06:27; Start 08/11/18 at 21:00 Multi-Ingredient Ointment (Analgesic [place]) 1 yaima PRN QID PRN TP MUSCLE PAIN; Start 08/11/18 at 21:00 Al Hydroxide/Mg Hydroxide (Mylanta Plus Xs) 15 ml PRN AFTMEALHC PRN PO DYSPEPSIA; Start 08/11/18 at 21:00 Magnesium Hydroxide (Milk Of Magnesia) 2,400 mg PRN QHS PRN PO CONSTIPATION; Start 08/11/18 at 21:00 Alprazolam (Xanax) 0.5 mg PRN Q6HRS PRN PO ANXIETY / AGITATION Last administered on 08/21/18at 20:06; Start 08/11/18 at 22:30 Divalproex Sodium (Depakote Sprinkles) 250 mg BIDWMEALS PO Last administered on 08/13/18at 18:08; Start 08/12/18 at 08:00; Stop 08/13/18 at 20:26; Status DC Duloxetine HCl (Cymbalta) 60 mg BIDWMEALS PO Last administered on 08/13/18 18 :08; Start 08/12/18 at 08:00; Stop 08/13/18 at 20:26; Status DC Risperidone (RisperDAL) 2 mg BIDWMEALS PO Last administered on 08/14/18 17:45 ; Start 08/12/18 at 08:00; Stop 08/14/18 at 18:45; Status DC Trazodone HCl (Desyrel) 100 mg HS PO Last administered on 09/27/18 20:30; Start 08/11/18 at 22:30 Ascorbic Acid (Vitamin C) 500 mg BIDWMEALS PO Last administered on 09/27/18 17: 08; Start 08/12/18 at 08:00 Calcium Carbonate/ Glycine (Tums) 500 mg PRN Q6HRS PRN PO INDIGESTION; Start 08/11/18 at 22:15 Vitamin D (Vitamin D3) 2,000 unit DAILY PO Last administered on 09/27/18 09:35 ; Start 08/12/18 at 09:00 Diclofenac Sodium (Voltaren) 1 yaima QID TP Last administered on 09/27/18 20:30; Start 08/12/18 at 09:00 Guaifenesin (Mucinex Er) 600 mg BIDWMEALS PO Last administered on 09/27/18 17: 08; Start 08/12/18 at 08:00 Acetaminophen/ Hydrocodone Bitart (Lortab 5/325) 1 tab PRN Q6HRS PRN PO PAIN Last administered on 09/08/18 17:32; Start 08/11/18 at 22:15 Levothyroxine Sodium (Synthroid) 100 mcg DAILY06 PO Last administered on 06:20; Start 08/12/18 at 06:00 Lisinopril (Prinivil) 10 mg DAILY PO Last administered on 09/27/18 09:36; Start 08/12/18 at 09:00 Nitroglycerin (Nitrostat) 0.4 mg PRN Q5MIN PRN SL CHEST PAIN; Start 08/11/18 at 22:15 Nystatin (Nystop) 1 yaima BID TP Last administered on 09/15/18 08:38; Start at 09:00; Stop 09/15/18 at 14:19; Status DC Allopurinol (Zyloprim) 100 mg DAILY PO Last administered on 09/27/18 09:36; Start 08/12/18 at 09:00 Carvedilol (Coreg) 12.5 mg BIDWMEALS PO Last administered on 09/03/18 08:42; Start 08/12/18 at 08:00; Stop 09/04/18 at 11:25; Status DC Folic Acid (Folic Acid) 1 mg DAILY PO Last administered on 09/27/18 09:37; Start 08/12/18 at 09:00 Furosemide (Lasix) 40 mg DAILY PO Last administered on 09/13/18 09:12; Start 08/12/18 at 09:00; Stop 09/13/18 at 17:08; Status DC Insulin Human Lispro (HumaLOG) 5 units TIDWMEALS SQ Last administered on 17:21; Start 08/12/18 at 08:00 Insulin Glargine (Lantus) 10 units QHS SQ Last administered on 09/27/18 20:34; Start 08/11/18 at 23:00 Loperamide HCl (Imodium) 2 mg PRN Q6HRS PRN PO DIARRHEA; Start 08/11/18 at 22: 45 Non-Formulary Medication (Magnesium Hydroxide (Milk Of Magnesia)) 2,400 mg PRN DAILY PRN PO CONSTIPATION; Start 08/11/18 at 22:15; Status UNV Metformin HCl (Glucophage) 1,000 mg BIDWMEALS PO Last administered on 09/27/18 17:07; Start 08/12/18 at 08:00 Methotrexate (Rheumatrex) 15 mg WEEKLY PO Last administered on 09/22/18 09:09 ; Start 08/18/18 at 09:00 Multivitamins/ Calcium (Thera-M Plus) 1 tab DAILY PO Last administered on 09:44; Start 08/12/18 at 09:00 Glucose (Insta-Glucose) 15 gm PRN Q15MIN PRN PO LOW BLOOD SUGAR; Start at 08:15 Divalproex Sodium (Depakote Sprinkles) 500 mg BIDWMEALS PO ; Start 08/13/18 at 20:27; Stop 08/13/18 at 20:36; Status DC Duloxetine HCl (Cymbalta) 60 mg DAILY PO Last administered on 09/27/18 09:34; Start 08/14/18 at 09:00 Divalproex Sodium (Depakote Sprinkles) 500 mg BIDWMEALS PO Last administered on 09/27/18 17:08; Start 08/14/18 at 08:00 Risperidone (RisperDAL) 1.5 mg DAILY PO ; Start 08/14/18 at 19:00; Stop at 19:00; Status DC Risperidone (RisperDAL) 2 mg HS PO Last administered on 08/16/18at 18:51; Start 08/14/18 at 21:00; Stop 08/17/18 at 18:30; Status DC Risperidone (RisperDAL) 1.5 mg HS PO ; Start 08/18/18 at 21:00; Stop 08/18/18 at 21:00; Status DC Risperidone (RisperDAL) 1.5 mg DAILY PO Last administered on 08/17/18at 08:08; Start 08/15/18 at 09:00; Stop 08/17/18 at 18:30; Status DC Amantadine HCl (Symmetrel) 100 mg DAILY PO Last administered on 08/23/18at 08:00 ; Start 08/17/18 at 09:00; Stop 08/23/18 at 21:37; Status DC Risperidone (RisperDAL) 1.5 mg BID PO Last administered on 08/19/18at 08:15; Start 08/17/18 at 21:00; Stop 08/19/18 at 15:58; Status DC Risperidone (RisperDAL) 1 mg BID PO Last administered on 08/22/18at 11:33; Start 08/19/18 at 21:00; Stop 08/22/18 at 17:30; Status DC Risperidone (RisperDAL) 1 mg QHS PO Last administered on 08/24/18at 20:41; Start 08/22/18 at 21:00; Stop 08/25/18 at 18:41; Status DC Risperidone (RisperDAL) 0.5 mg DAILY PO Last administered on 08/25/18at 11:14; Start 08/23/18 at 09:00; Stop 08/25/18 at 09:00; Status DC Amantadine HCl (Symmetrel) 100 mg BID PO Last administered on 09/27/18 20:31; Start 08/24/18 at 09:00 Risperidone (RisperDAL) 1.5 mg BID PO Last administered on 09/27/18 20:30; Start 08/26/18 at 09:00 Risperidone (RisperDAL) 2 mg HS PO Last administered on 08/25/18 20:03; Start 08/25/18 at 21:00; Stop 08/25/18 at 21:01; Status DC Trazodone HCl (Desyrel) 100 mg PRN QHS PRN PO INSOMNIA Last administered on 08/31 02:29; Start 08/30/18 at 18:45 Potassium Chloride (Klor-Con) 20 meq TID PO Last administered on 09/03/18 14: 25; Start 08/31/18 at 21:00; Stop 09/03/18 at 17:14; Status DC Doxycycline Hyclate (Vibra-Tab) 100 mg BID PO Last administered on 09/13/18 20 :13; Start 09/03/18 at 21:00; Stop 09/13/18 at 20:59; Status DC Lactobacillus Rhamnosus (Culturelle) 1 cap BID PO Last administered on 20:30; Start 09/03/18 at 21:00 Carvedilol (Coreg) 6.25 mg BIDWMEALS PO Last administered on 09/27/18 17:08; Start 09/04/18 at 17:00 Aspirin (Aspirin Enteric Coated) 81 mg DAILYWBKFT PO Last administered on 09:36; Start 09/14/18 at 08:00 Furosemide (Lasix) 40 mg BID PO Last administered on 09/15/18 08:36; Start at 21:00; Stop 09/15/18 at 11:23; Status DC Potassium Chloride (Klor-Con) 20 meq BID PO Last administered on 09/15/18 08: 35; Start 09/13/18 at 21:00; Stop 09/15/18 at 11:23; Status DC Furosemide (Lasix) 40 mg DAILY PO Last administered on 09/27/18 09:37; Start at 09:00 Potassium Chloride (Klor-Con) 20 meq DAILY PO Last administered on 09/27/18 09: 37; Start 09/16/18 at 09:00 Nystatin (Nystop) 1 yaima TID TP Last administered on 09/27/18at 20:30; Start 09/15 at 21:00 Levothyroxine Sodium (Synthroid) 100 mcg 1X ONCE PO Last administered on at 05:48; Start 09/23/18 at 06:00; Stop 09/23/18 at 06:01; Status DC Active Scripts Active Reported Xanax (Alprazolam) 0.5 Mg Tablet 0.5 Mg PO PRN Q6HRS PRN Hydrocodone-Apap 5-325 (Hydrocodone Bit/Acetaminophen) 1 Each Tablet 1 Tab PO PRN Q6HRS PRN Voltaren (Diclofenac Sodium) 100 Gm Gel..gram. 4 Gm TP QID Nystatin 15 Gm Powder 1 Yaima TP BID Tums (Calcium Carbonate) 200 Mg Tab.chew 2 Tab PO PRN Q6HRS PRN Nitrostat (Nitroglycerin) 0.4 Mg Tab.subl 0.4 Mg SL PRN Q5MIN PRN Milk Of Magnesia (Magnesium Hydroxide) 2,400 Mg/10 Ml Oral.susp 2,400 Mg PO PRN DAILY PRN Loperamide (Loperamide Hcl) 2 Mg Tablet 2 Mg PO PRN Q6HRS PRN Vitamin C (Ascorbic Acid) 500 Mg Tablet 500 Mg PO BIDWMEALS Risperdal (Risperidone) 2 Mg Tablet 2 Mg PO BIDWMEALS Mucinex (Guaifenesin) 600 Mg Tablet.er 600 Mg PO BIDWMEALS Metformin Hcl 1,000 Mg Tablet 1,000 Mg PO BIDWMEALS Cymbalta (Duloxetine Hcl) 60 Mg Capsule.dr 60 Mg PO BIDWMEALS Depakote Sprinkle (Divalproex Sodium) 125 Mg Cap.sprink 250 Mg PO BIDWMEALS Coreg (Carvedilol) 12.5 Mg Tablet 12.5 Mg PO BIDWMEALS Vitamin D3 (Cholecalciferol (Vitamin D3)) 1,000 Unit Tablet 2,000 Unit PO DAILY Trazodone Hcl 100 Mg Tablet 100 Mg PO HS Multivitamins (Multivitamin) 1 Each Tablet 1 Tab PO DAILY Methotrexate (Methotrexate Sodium) 2.5 Mg Tablet 15 Mg PO WEEKLY Lisinopril 10 Mg Tablet 10 Mg PO DAILY Levothyroxine Sodium 100 Mcg Tablet 100 Mcg PO DAILYAC Lasix (Furosemide) 40 Mg Tablet 40 Mg PO DAILY Folic Acid 1 Mg Tablet 1 Mg PO DAILY Allopurinol 100 Mg Tablet 100 Mg PO DAILY Novolog (Insulin Aspart) 100 Unit/1 Ml Vial 5 Unit SQ TIDWMEALS Levemir (Insulin Detemir) 100 Unit/1 Ml Vial 10 Unit SQ HS I have reviewed the current psychotropics carefully including drug interactions. Risk benefit ratio favors no change other than as noted in my dictated progress note. Diagnosis: Problems: (1) Anxiety disorder (2) Major depressive disorder, recurrent episode (3) Impulse control disorder (4) Dementia in Alzheimer's disease with delusions (5) Dementia in Alzheimer's disease with depression (6) Dementia, vascular, with delusions (7) Dementia, vascular, with depression KAITLIN DREW MD Sep 27, 2018 22:56
--- NOTE | 2018-09-27 23:27 | PN ---
DATE: 09/26/2018 This late entry for 09/26/2018 covers elements not covered in my initial note. SUBJECTIVE: I met with the patient in the evening. The patient slept 7-3/4 hours previous night. At times, she refuses medications, but takes it later. REVIEW OF SYSTEMS: Unable to speak or hear. Communication, nonverbal. No CV, , pulmonary, eye system symptoms on review. MENTAL STATUS EXAM: Oriented to herself, situations. Speech as above. Abstraction fair, computation impaired, language function intact, attention span short. Mood and affect somewhat withdrawn. LABORATORY DATA: Reviewed. IMPRESSION: Unchanged from initial note. PLAN: No change from initial note. KAITLIN DREW MD DR: STEFAN/satya JOB#: [id number] / [id number]
[2018-09-28 05:56] VITALS: BP 115/65
[2018-09-28] MEDS: LEVOTHYROXINE 100 MCG TABLET PO SCH (06:10)
[2018-09-28] MEDS: ASPIRIN ENTERIC COATED 81 MG TABLET.DR. PO SCH (07:49)
[2018-09-28] MEDS: DIVALPROEX 125 MG CAP.SPRINK PO SCH ×2 (07:50→17:17)
[2018-09-28] MEDS: CARVEDILOL 6.25 MG TABLET PO SCH ×2 (07:50→17:17)
[2018-09-28] MEDS: metFORMIN 500 MG TABLET PO SCH ×2 (07:50→17:17)
[2018-09-28] MEDS: ASCORBIC ACID 500 MG TABLET PO SCH ×2 (07:51→17:17)
[2018-09-28] MEDS: INSULIN LISPRO 300 UNITS/3 ML INSULN.PEN. SQ SCH ×3 (07:53→17:00)
[2018-09-28] MEDS: FOLIC ACID 1 MG TABLET PO SCH (07:54)
[2018-09-28] MEDS: DULoxetine HCL 60 MG CAPSULE.DR PO SCH (07:54)
[2018-09-28] MEDS: LACTOBACILLUS RHAMNOSUS GG 1 CAPSULE. PO SCH ×2 (07:54→20:29)
[2018-09-28] MEDS: POTASSIUM CHLORIDE 20 MEQ TABLET.ER. PO SCH (07:55)
[2018-09-28] MEDS: FUROSEMIDE 40 MG TABLET PO SCH (07:57)
[2018-09-28] MEDS: LISINOPRIL 10 MG TABLET PO SCH (07:57)
[2018-09-28] MEDS: AMANTADINE HCL 100 MG CAPSULE PO SCH ×2 (07:58→20:32)
[2018-09-28] MEDS: risperiDONE 0.5 MG TABLET. PO SCH ×2 (07:58→20:29)
[2018-09-28] MEDS: CHOLECALCIFEROL (VITAMIN D3) 1,000 UNIT TABLET PO SCH (08:00)
[2018-09-28] MEDS: ALLOPURINOL 100 MG TABLET. PO SCH (08:00)
[2018-09-28] MEDS: NYSTATIN TOPICAL POWDER 15GM BOTTLE. TP SCH ×3 (08:01→20:28)
[2018-09-28] MEDS: DICLOFENAC SODIUM 1% TOPICAL GEL 100GM TUBE. TP SCH ×4 (08:01→20:29)
[2018-09-28] MEDS: MULTIVITAMIN with MINERAL TABLET. PO SCH (08:02)
[2018-09-28 16:07] VITALS: BP 102/62
[2018-09-28] MEDS: traZODone 100 MG TABLET. PO SCH (20:28)
[2018-09-28] MEDS: INSULIN GLARGINE 300 UNITS/3 ML INSULN.PEN. SQ SCH (20:31)
--- NOTE | 2018-09-28 23:07 | PDOC ---
Exam Note: Johnnie Note: Please also refer to the separate dictated note~for this date of service dictated separately.~Patient seen individually. Discussed the patient with Nursing staff reviewed the chart.~Reviewed interim history and current functioning. Reviewed vital signs,~Labs/ Radiology~and current medications noted below. Continue current treatment with the changes noted in the dictated addendum note Assessment: Vital Signs: Vital Signs Date Time Temp Pulse Resp B/P (MAP) Pulse Ox O2 Delivery O2 Flow Rate FiO2 09/28/18 17:17 80 102/62 09/28/18 16:07 97.6 16 97 09/25/18 16:21 Room Air I&O Intake and Output 09/28/18 07:01 Intake Total 840 ml Balance 840 ml Intake Oral 840 ml # Voids 1 Labs: Laboratory Tests Test 09/28/18 07:25 09/28/18 11:53 09/28/18 16:19 09/28/18 19:08 Glucose (Fingerstick) 128 mg/dL (70-99) H 72 mg/dL (70-99) 105 mg/dL (70-99) H 145 mg/dL (70-99) H Current Medications: Meds: Current Medications Acetaminophen (Tylenol) 650 mg PRN Q6HRS PRN PO PAIN / TEMP Last administered on 09/27/18at 06:27; Start 08/11/18 at 21:00 Multi-Ingredient Ointment (Analgesic [place]) 1 yaima PRN QID PRN TP MUSCLE PAIN; Start 08/11/18 at 21:00 Al Hydroxide/Mg Hydroxide (Mylanta Plus Xs) 15 ml PRN AFTMEALHC PRN PO DYSPEPSIA; Start 08/11/18 at 21:00 Magnesium Hydroxide (Milk Of Magnesia) 2,400 mg PRN QHS PRN PO CONSTIPATION; Start 08/11/18 at 21:00 Alprazolam (Xanax) 0.5 mg PRN Q6HRS PRN PO ANXIETY / AGITATION Last administered on 08/21/18at 20:06; Start 08/11/18 at 22:30 Divalproex Sodium (Depakote Sprinkles) 250 mg BIDWMEALS PO Last administered on 08/13/18at 18:08; Start 08/12/18 at 08:00; Stop 08/13/18 at 20:26; Status DC Duloxetine HCl (Cymbalta) 60 mg BIDWMEALS PO Last administered on 08/13/18at 18 :08; Start 08/12/18 at 08:00; Stop 08/13/18 at 20:26; Status DC Risperidone (RisperDAL) 2 mg BIDWMEALS PO Last administered on 08/14/18at 17:45 ; Start 08/12/18 at 08:00; Stop 08/14/18 at 18:45; Status DC Trazodone HCl (Desyrel) 100 mg HS PO Last administered on 09/28/18 20:28; Start 08/11/18 at 22:30 Ascorbic Acid (Vitamin C) 500 mg BIDWMEALS PO Last administered on 09/28/18 17: 17; Start 08/12/18 at 08:00 Calcium Carbonate/ Glycine (Tums) 500 mg PRN Q6HRS PRN PO INDIGESTION; Start 08/11/18 at 22:15 Vitamin D (Vitamin D3) 2,000 unit DAILY PO Last administered on 09/28/18 08:00 ; Start 08/12/18 at 09:00 Diclofenac Sodium (Voltaren) 1 yaima QID TP Last administered on 09/28/18 20:29; Start 08/12/18 at 09:00 Guaifenesin (Mucinex Er) 600 mg BIDWMEALS PO Last administered on 09/28/18 17: 17; Start 08/12/18 at 08:00 Acetaminophen/ Hydrocodone Bitart (Lortab 5/325) 1 tab PRN Q6HRS PRN PO PAIN Last administered on 09/08/18 17:32; Start 08/11/18 at 22:15 Levothyroxine Sodium (Synthroid) 100 mcg DAILY06 PO Last administered on 06:10; Start 08/12/18 at 06:00 Lisinopril (Prinivil) 10 mg DAILY PO Last administered on 09/28/18 07:57; Start 08/12/18 at 09:00 Nitroglycerin (Nitrostat) 0.4 mg PRN Q5MIN PRN SL CHEST PAIN; Start 08/11/18 at 22:15 Nystatin (Nystop) 1 yaima BID TP Last administered on 09/15/18 08:38; Start at 09:00; Stop 09/15/18 at 14:19; Status DC Allopurinol (Zyloprim) 100 mg DAILY PO Last administered on 09/28/18 08:00; Start 08/12/18 at 09:00 Carvedilol (Coreg) 12.5 mg BIDWMEALS PO Last administered on 09/03/18 08:42; Start 08/12/18 at 08:00; Stop 09/04/18 at 11:25; Status DC Folic Acid (Folic Acid) 1 mg DAILY PO Last administered on 09/28/18 07:54; Start 08/12/18 at 09:00 Furosemide (Lasix) 40 mg DAILY PO Last administered on 09/13/18 09:12; Start 08/12/18 at 09:00; Stop 09/13/18 at 17:08; Status DC Insulin Human Lispro (HumaLOG) 5 units TIDWMEALS SQ Last administered on 07:53; Start 08/12/18 at 08:00 Insulin Glargine (Lantus) 10 units QHS SQ Last administered on 09/28/18 20:31; Start 08/11/18 at 23:00 Loperamide HCl (Imodium) 2 mg PRN Q6HRS PRN PO DIARRHEA; Start 08/11/18 at 22: 45 Non-Formulary Medication (Magnesium Hydroxide (Milk Of Magnesia)) 2,400 mg PRN DAILY PRN PO CONSTIPATION; Start 08/11/18 at 22:15; Status UNV Metformin HCl (Glucophage) 1,000 mg BIDWMEALS PO Last administered on 09/28/18 17:17; Start 08/12/18 at 08:00 Methotrexate (Rheumatrex) 15 mg WEEKLY PO Last administered on 09/22/18 09:09 ; Start 08/18/18 at 09:00 Multivitamins/ Calcium (Thera-M Plus) 1 tab DAILY PO Last administered on 08:02; Start 08/12/18 at 09:00 Glucose (Insta-Glucose) 15 gm PRN Q15MIN PRN PO LOW BLOOD SUGAR; Start at 08:15 Divalproex Sodium (Depakote Sprinkles) 500 mg BIDWMEALS PO ; Start 08/13/18 at 20:27; Stop 08/13/18 at 20:36; Status DC Duloxetine HCl (Cymbalta) 60 mg DAILY PO Last administered on 09/28/18at 07:54; Start 08/14/18 at 09:00 Divalproex Sodium (Depakote Sprinkles) 500 mg BIDWMEALS PO Last administered on 09/28/18at 17:17; Start 08/14/18 at 08:00 Risperidone (RisperDAL) 1.5 mg DAILY PO ; Start 08/14/18 at 19:00; Stop at 19:00; Status DC Risperidone (RisperDAL) 2 mg HS PO Last administered on 08/16/18at 18:51; Start 08/14/18 at 21:00; Stop 08/17/18 at 18:30; Status DC Risperidone (RisperDAL) 1.5 mg HS PO ; Start 08/18/18 at 21:00; Stop 08/18/18 at 21:00; Status DC Risperidone (RisperDAL) 1.5 mg DAILY PO Last administered on 08/17/18at 08:08; Start 08/15/18 at 09:00; Stop 08/17/18 at 18:30; Status DC Amantadine HCl (Symmetrel) 100 mg DAILY PO Last administered on 08/23/18at 08:00 ; Start 08/17/18 at 09:00; Stop 08/23/18 at 21:37; Status DC Risperidone (RisperDAL) 1.5 mg BID PO Last administered on 08/19/18at 08:15; Start 08/17/18 at 21:00; Stop 08/19/18 at 15:58; Status DC Risperidone (RisperDAL) 1 mg BID PO Last administered on 08/22/18at 11:33; Start 08/19/18 at 21:00; Stop 08/22/18 at 17:30; Status DC Risperidone (RisperDAL) 1 mg QHS PO Last administered on 08/24/18at 20:41; Start 08/22/18 at 21:00; Stop 08/25/18 at 18:41; Status DC Risperidone (RisperDAL) 0.5 mg DAILY PO Last administered on 08/25/18at 11:14; Start 08/23/18 at 09:00; Stop 08/25/18 at 09:00; Status DC Amantadine HCl (Symmetrel) 100 mg BID PO Last administered on 09/28/18 20:32; Start 08/24/18 at 09:00 Risperidone (RisperDAL) 1.5 mg BID PO Last administered on 09/28/18 20:29; Start 08/26/18 at 09:00 Risperidone (RisperDAL) 2 mg HS PO Last administered on 08/25/18 20:03; Start 08/25/18 at 21:00; Stop 08/25/18 at 21:01; Status DC Trazodone HCl (Desyrel) 100 mg PRN QHS PRN PO INSOMNIA Last administered on 08/31 02:29; Start 08/30/18 at 18:45 Potassium Chloride (Klor-Con) 20 meq TID PO Last administered on 09/03/18 14: 25; Start 08/31/18 at 21:00; Stop 09/03/18 at 17:14; Status DC Doxycycline Hyclate (Vibra-Tab) 100 mg BID PO Last administered on 09/13/18 20 :13; Start 09/03/18 at 21:00; Stop 09/13/18 at 20:59; Status DC Lactobacillus Rhamnosus (Culturelle) 1 cap BID PO Last administered on 20:29; Start 09/03/18 at 21:00 Carvedilol (Coreg) 6.25 mg BIDWMEALS PO Last administered on 09/28/18 17:17; Start 09/04/18 at 17:00 Aspirin (Aspirin Enteric Coated) 81 mg DAILYWBKFT PO Last administered on 07:49; Start 09/14/18 at 08:00 Furosemide (Lasix) 40 mg BID PO Last administered on 09/15/18 08:36; Start at 21:00; Stop 09/15/18 at 11:23; Status DC Potassium Chloride (Klor-Con) 20 meq BID PO Last administered on 09/15/18 08: 35; Start 09/13/18 at 21:00; Stop 09/15/18 at 11:23; Status DC Furosemide (Lasix) 40 mg DAILY PO Last administered on 09/28/18at 07:57; Start at 09:00 Potassium Chloride (Klor-Con) 20 meq DAILY PO Last administered on 09/28/18at 07: 55; Start 09/16/18 at 09:00 Nystatin (Nystop) 1 yaima TID TP Last administered on 09/28/18at 20:28; Start 09/15 at 21:00 Levothyroxine Sodium (Synthroid) 100 mcg 1X ONCE PO Last administered on at 05:48; Start 09/23/18 at 06:00; Stop 09/23/18 at 06:01; Status DC Active Scripts Active Reported Xanax (Alprazolam) 0.5 Mg Tablet 0.5 Mg PO PRN Q6HRS PRN Hydrocodone-Apap 5-325 (Hydrocodone Bit/Acetaminophen) 1 Each Tablet 1 Tab PO PRN Q6HRS PRN Voltaren (Diclofenac Sodium) 100 Gm Gel..gram. 4 Gm TP QID Nystatin 15 Gm Powder 1 Yaima TP BID Tums (Calcium Carbonate) 200 Mg Tab.chew 2 Tab PO PRN Q6HRS PRN Nitrostat (Nitroglycerin) 0.4 Mg Tab.subl 0.4 Mg SL PRN Q5MIN PRN Milk Of Magnesia (Magnesium Hydroxide) 2,400 Mg/10 Ml Oral.susp 2,400 Mg PO PRN DAILY PRN Loperamide (Loperamide Hcl) 2 Mg Tablet 2 Mg PO PRN Q6HRS PRN Vitamin C (Ascorbic Acid) 500 Mg Tablet 500 Mg PO BIDWMEALS Risperdal (Risperidone) 2 Mg Tablet 2 Mg PO BIDWMEALS Mucinex (Guaifenesin) 600 Mg Tablet.er 600 Mg PO BIDWMEALS Metformin Hcl 1,000 Mg Tablet 1,000 Mg PO BIDWMEALS Cymbalta (Duloxetine Hcl) 60 Mg Capsule.dr 60 Mg PO BIDWMEALS Depakote Sprinkle (Divalproex Sodium) 125 Mg Cap.sprink 250 Mg PO BIDWMEALS Coreg (Carvedilol) 12.5 Mg Tablet 12.5 Mg PO BIDWMEALS Vitamin D3 (Cholecalciferol (Vitamin D3)) 1,000 Unit Tablet 2,000 Unit PO DAILY Trazodone Hcl 100 Mg Tablet 100 Mg PO HS Multivitamins (Multivitamin) 1 Each Tablet 1 Tab PO DAILY Methotrexate (Methotrexate Sodium) 2.5 Mg Tablet 15 Mg PO WEEKLY Lisinopril 10 Mg Tablet 10 Mg PO DAILY Levothyroxine Sodium 100 Mcg Tablet 100 Mcg PO DAILYAC Lasix (Furosemide) 40 Mg Tablet 40 Mg PO DAILY Folic Acid 1 Mg Tablet 1 Mg PO DAILY Allopurinol 100 Mg Tablet 100 Mg PO DAILY Novolog (Insulin Aspart) 100 Unit/1 Ml Vial 5 Unit SQ TIDWMEALS Levemir (Insulin Detemir) 100 Unit/1 Ml Vial 10 Unit SQ HS I have reviewed the current psychotropics carefully including drug interactions. Risk benefit ratio favors no change other than as noted in my dictated progress note. Diagnosis: Problems: (1) Anxiety disorder (2) Major depressive disorder, recurrent episode (3) Impulse control disorder (4) Dementia in Alzheimer's disease with delusions (5) Dementia in Alzheimer's disease with depression (6) Dementia, vascular, with delusions (7) Dementia, vascular, with depression KAITLIN DREW MD Sep 28, 2018 23:07
--- NOTE | 2018-09-28 23:43 | PN ---
DATE: 09/27/2018 This late entry for 09/27/2018 covers elements not covered in my initial note. SUBJECTIVE: I met with the patient in the evening. The patient slept 7-1/2 hours previous night. She is compliant with her medication, somewhat withdrawn. 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 REVIEW OF SYSTEMS: No CV, , pulmonary, eye system symptoms on review. MENTAL STATUS EXAM: Oriented to herself and situation. Speech as above. Abstraction fair, computation impaired, language function intact. Mood and affect, lability is improved. LABORATORY DATA: Reviewed. IMPRESSION: Unchanged from initial note. PLAN: No change from initial note. KAITLIN DREW MD DR: STEFAN/satya JOB#: [id number] / [id number]
[2018-09-29] MEDS: LEVOTHYROXINE 100 MCG TABLET PO SCH (05:47)
[2018-09-29 06:44] VITALS: BP_SYST 133
[2018-09-29 07:44] VITALS: BP 133/74
[2018-09-29] MEDS: INSULIN LISPRO 300 UNITS/3 ML INSULN.PEN. SQ SCH ×3 (08:00→17:00)
[2018-09-29] MEDS: ASPIRIN ENTERIC COATED 81 MG TABLET.DR. PO SCH (08:25)
[2018-09-29] MEDS: metFORMIN 500 MG TABLET PO SCH ×2 (08:26→17:33)
[2018-09-29] MEDS: DIVALPROEX 125 MG CAP.SPRINK PO SCH ×2 (08:26→17:33)
[2018-09-29] MEDS: CARVEDILOL 6.25 MG TABLET PO SCH ×2 (08:26→17:32)
[2018-09-29] MEDS: DULoxetine HCL 60 MG CAPSULE.DR PO SCH (08:27)
[2018-09-29] MEDS: ASCORBIC ACID 500 MG TABLET PO SCH ×2 (08:27→17:33)
[2018-09-29] MEDS: LACTOBACILLUS RHAMNOSUS GG 1 CAPSULE. PO SCH ×2 (08:27→20:44)
[2018-09-29] MEDS: FOLIC ACID 1 MG TABLET PO SCH (08:27)
[2018-09-29] MEDS: LISINOPRIL 10 MG TABLET PO SCH (08:28)
[2018-09-29] MEDS: POTASSIUM CHLORIDE 20 MEQ TABLET.ER. PO SCH (08:28)
[2018-09-29] MEDS: FUROSEMIDE 40 MG TABLET PO SCH (08:28)
[2018-09-29] MEDS: METHOTREXATE SODIUM 2.5 MG TABLET PO SCH (08:29)
[2018-09-29] MEDS: MULTIVITAMIN with MINERAL TABLET. PO SCH (08:30)
[2018-09-29] MEDS: ALLOPURINOL 100 MG TABLET. PO SCH (08:30)
[2018-09-29] MEDS: risperiDONE 0.5 MG TABLET. PO SCH ×2 (08:30→20:45)
[2018-09-29] MEDS: AMANTADINE HCL 100 MG CAPSULE PO SCH ×2 (08:30→20:44)
[2018-09-29] MEDS: CHOLECALCIFEROL (VITAMIN D3) 1,000 UNIT TABLET PO SCH (08:30)
[2018-09-29] MEDS: NYSTATIN TOPICAL POWDER 15GM BOTTLE. TP SCH ×3 (08:31→20:45)
[2018-09-29] MEDS: DICLOFENAC SODIUM 1% TOPICAL GEL 100GM TUBE. TP SCH ×4 (08:31→20:45)
[2018-09-29 17:00] VITALS: BP 130/60
[2018-09-29] MEDS: traZODone 100 MG TABLET. PO SCH (20:45)
[2018-09-29] MEDS: INSULIN GLARGINE 300 UNITS/3 ML INSULN.PEN. SQ SCH (20:56)
--- NOTE | 2018-09-29 22:31 | PDOC ---
Exam Note: Johnnie Note: Please also refer to the separate dictated note~for this date of service dictated separately.~Patient seen individually. Discussed the patient with Nursing staff reviewed the chart.~Reviewed interim history and current functioning. Reviewed vital signs,~Labs/ Radiology~and current medications noted below. Continue current treatment with the changes noted in the dictated addendum note Assessment: Vital Signs: Vital Signs Date Time Temp Pulse Resp B/P (MAP) Pulse Ox O2 Delivery O2 Flow Rate FiO2 09/29/18 17:32 76 130/60 09/29/18 17:00 98.6 18 96 09/25/18 16:21 Room Air I&O Intake and Output 09/29/18 07:01 Intake Total 1320 ml Balance 1320 ml Intake Oral 1320 ml # Voids 1 Labs: Laboratory Tests Test 09/29/18 07:43 09/29/18 11:25 09/29/18 16:58 09/29/18 19:16 Glucose (Fingerstick) 73 mg/dL (70-99) 89 mg/dL (70-99) 105 mg/dL (70-99) H 135 mg/dL (70-99) H Current Medications: Meds: Current Medications Acetaminophen (Tylenol) 650 mg PRN Q6HRS PRN PO PAIN / TEMP Last administered on 09/27/18at 06:27; Start 08/11/18 at 21:00 Multi-Ingredient Ointment (Analgesic [place]) 1 yaima PRN QID PRN TP MUSCLE PAIN; Start 08/11/18 at 21:00 Al Hydroxide/Mg Hydroxide (Mylanta Plus Xs) 15 ml PRN AFTMEALHC PRN PO DYSPEPSIA; Start 08/11/18 at 21:00 Magnesium Hydroxide (Milk Of Magnesia) 2,400 mg PRN QHS PRN PO CONSTIPATION; Start 08/11/18 at 21:00 Alprazolam (Xanax) 0.5 mg PRN Q6HRS PRN PO ANXIETY / AGITATION Last administered on 08/21/18at 20:06; Start 08/11/18 at 22:30 Divalproex Sodium (Depakote Sprinkles) 250 mg BIDWMEALS PO Last administered on 08/13/18at 18:08; Start 08/12/18 at 08:00; Stop 08/13/18 at 20:26; Status DC Duloxetine HCl (Cymbalta) 60 mg BIDWMEALS PO Last administered on 08/13/18 18 :08; Start 08/12/18 at 08:00; Stop 08/13/18 at 20:26; Status DC Risperidone (RisperDAL) 2 mg BIDWMEALS PO Last administered on 08/14/18at 17:45 ; Start 08/12/18 at 08:00; Stop 08/14/18 at 18:45; Status DC Trazodone HCl (Desyrel) 100 mg HS PO Last administered on 09/29/18 20:45; Start 08/11/18 at 22:30 Ascorbic Acid (Vitamin C) 500 mg BIDWMEALS PO Last administered on 09/29/18 17: 33; Start 08/12/18 at 08:00 Calcium Carbonate/ Glycine (Tums) 500 mg PRN Q6HRS PRN PO INDIGESTION; Start 08/11/18 at 22:15 Vitamin D (Vitamin D3) 2,000 unit DAILY PO Last administered on 09/29/18 08:30 ; Start 08/12/18 at 09:00 Diclofenac Sodium (Voltaren) 1 yaima QID TP Last administered on 09/29/18 20:45; Start 08/12/18 at 09:00 Guaifenesin (Mucinex Er) 600 mg BIDWMEALS PO Last administered on 09/29/18 17: 33; Start 08/12/18 at 08:00 Acetaminophen/ Hydrocodone Bitart (Lortab 5/325) 1 tab PRN Q6HRS PRN PO PAIN Last administered on 09/08/18 17:32; Start 08/11/18 at 22:15 Levothyroxine Sodium (Synthroid) 100 mcg DAILY06 PO Last administered on 05:47; Start 08/12/18 at 06:00 Lisinopril (Prinivil) 10 mg DAILY PO Last administered on 09/29/18 08:28; Start 08/12/18 at 09:00 Nitroglycerin (Nitrostat) 0.4 mg PRN Q5MIN PRN SL CHEST PAIN; Start 08/11/18 at 22:15 Nystatin (Nystop) 1 yaima BID TP Last administered on 1/24/19at 08:38; Start at 09:00; Stop 09/15/18 at 14:19; Status DC Allopurinol (Zyloprim) 100 mg DAILY PO Last administered on 09/29/18 08:30; Start 08/12/18 at 09:00 Carvedilol (Coreg) 12.5 mg BIDWMEALS PO Last administered on 09/03/18 08:42; Start 08/12/18 at 08:00; Stop 09/04/18 at 11:25; Status DC Folic Acid (Folic Acid) 1 mg DAILY PO Last administered on 09/29/18 08:27; Start 08/12/18 at 09:00 Furosemide (Lasix) 40 mg DAILY PO Last administered on 09/13/18 09:12; Start 08/12/18 at 09:00; Stop 09/13/18 at 17:08; Status DC Insulin Human Lispro (HumaLOG) 5 units TIDWMEALS SQ Last administered on 07:53; Start 08/12/18 at 08:00 Insulin Glargine (Lantus) 10 units QHS SQ Last administered on 09/29/18 20:56; Start 08/11/18 at 23:00 Loperamide HCl (Imodium) 2 mg PRN Q6HRS PRN PO DIARRHEA; Start 08/11/18 at 22: 45 Non-Formulary Medication (Magnesium Hydroxide (Milk Of Magnesia)) 2,400 mg PRN DAILY PRN PO CONSTIPATION; Start 08/11/18 at 22:15; Status UNV Metformin HCl (Glucophage) 1,000 mg BIDWMEALS PO Last administered on 09/29/18 17:33; Start 08/12/18 at 08:00 Methotrexate (Rheumatrex) 15 mg WEEKLY PO Last administered on 09/29/18 08:29; Start 08/18/18 at 09:00 Multivitamins/ Calcium (Thera-M Plus) 1 tab DAILY PO Last administered on 08:30; Start 08/12/18 at 09:00 Glucose (Insta-Glucose) 15 gm PRN Q15MIN PRN PO LOW BLOOD SUGAR; Start at 08:15 Divalproex Sodium (Depakote Sprinkles) 500 mg BIDWMEALS PO ; Start 08/13/18 at 20:27; Stop 08/13/18 at 20:36; Status DC Duloxetine HCl (Cymbalta) 60 mg DAILY PO Last administered on 09/29/18at 08:27; Start 08/14/18 at 09:00 Divalproex Sodium (Depakote Sprinkles) 500 mg BIDWMEALS PO Last administered on 09/29/18 17:33; Start 08/14/18 at 08:00 Risperidone (RisperDAL) 1.5 mg DAILY PO ; Start 08/14/18 at 19:00; Stop at 19:00; Status DC Risperidone (RisperDAL) 2 mg HS PO Last administered on 08/16/18at 18:51; Start 08/14/18 at 21:00; Stop 08/17/18 at 18:30; Status DC Risperidone (RisperDAL) 1.5 mg HS PO ; Start 08/18/18 at 21:00; Stop 08/18/18 at 21:00; Status DC Risperidone (RisperDAL) 1.5 mg DAILY PO Last administered on 08/17/18at 08:08; Start 08/15/18 at 09:00; Stop 08/17/18 at 18:30; Status DC Amantadine HCl (Symmetrel) 100 mg DAILY PO Last administered on 08/23/18at 08:00 ; Start 08/17/18 at 09:00; Stop 08/23/18 at 21:37; Status DC Risperidone (RisperDAL) 1.5 mg BID PO Last administered on 08/19/18at 08:15; Start 08/17/18 at 21:00; Stop 08/19/18 at 15:58; Status DC Risperidone (RisperDAL) 1 mg BID PO Last administered on 08/22/18at 11:33; Start 08/19/18 at 21:00; Stop 08/22/18 at 17:30; Status DC Risperidone (RisperDAL) 1 mg QHS PO Last administered on 08/24/18at 20:41; Start 08/22/18 at 21:00; Stop 08/25/18 at 18:41; Status DC Risperidone (RisperDAL) 0.5 mg DAILY PO Last administered on 08/25/18at 11:14; Start 08/23/18 at 09:00; Stop 08/25/18 at 09:00; Status DC Amantadine HCl (Symmetrel) 100 mg BID PO Last administered on 09/29/18 20:44; Start 08/24/18 at 09:00 Risperidone (RisperDAL) 1.5 mg BID PO Last administered on 09/29/18 20:45; Start 08/26/18 at 09:00 Risperidone (RisperDAL) 2 mg HS PO Last administered on 08/25/18 20:03; Start 08/25/18 at 21:00; Stop 08/25/18 at 21:01; Status DC Trazodone HCl (Desyrel) 100 mg PRN QHS PRN PO INSOMNIA Last administered on 08/31 02:29; Start 08/30/18 at 18:45 Potassium Chloride (Klor-Con) 20 meq TID PO Last administered on 09/03/18 14: 25; Start 08/31/18 at 21:00; Stop 09/03/18 at 17:14; Status DC Doxycycline Hyclate (Vibra-Tab) 100 mg BID PO Last administered on 09/13/18 20 :13; Start 09/03/18 at 21:00; Stop 09/13/18 at 20:59; Status DC Lactobacillus Rhamnosus (Culturelle) 1 cap BID PO Last administered on 20:44; Start 09/03/18 at 21:00 Carvedilol (Coreg) 6.25 mg BIDWMEALS PO Last administered on 09/29/18 17:32; Start 09/04/18 at 17:00 Aspirin (Aspirin Enteric Coated) 81 mg DAILYWBKFT PO Last administered on 08:25; Start 09/14/18 at 08:00 Furosemide (Lasix) 40 mg BID PO Last administered on 09/15/18 08:36; Start at 21:00; Stop 09/15/18 at 11:23; Status DC Potassium Chloride (Klor-Con) 20 meq BID PO Last administered on 09/15/18 08: 35; Start 09/13/18 at 21:00; Stop 09/15/18 at 11:23; Status DC Furosemide (Lasix) 40 mg DAILY PO Last administered on 09/29/18at 08:28; Start at 09:00 Potassium Chloride (Klor-Con) 20 meq DAILY PO Last administered on 09/29/18at 08: 28; Start 09/16/18 at 09:00 Nystatin (Nystop) 1 yaima TID TP Last administered on 09/29/18at 20:45; Start 09/15 at 21:00 Levothyroxine Sodium (Synthroid) 100 mcg 1X ONCE PO Last administered on at 05:48; Start 09/23/18 at 06:00; Stop 09/23/18 at 06:01; Status DC Active Scripts Active Reported Xanax (Alprazolam) 0.5 Mg Tablet 0.5 Mg PO PRN Q6HRS PRN Hydrocodone-Apap 5-325 (Hydrocodone Bit/Acetaminophen) 1 Each Tablet 1 Tab PO PRN Q6HRS PRN Voltaren (Diclofenac Sodium) 100 Gm Gel..gram. 4 Gm TP QID Nystatin 15 Gm Powder 1 Yaima TP BID Tums (Calcium Carbonate) 200 Mg Tab.chew 2 Tab PO PRN Q6HRS PRN Nitrostat (Nitroglycerin) 0.4 Mg Tab.subl 0.4 Mg SL PRN Q5MIN PRN Milk Of Magnesia (Magnesium Hydroxide) 2,400 Mg/10 Ml Oral.susp 2,400 Mg PO PRN DAILY PRN Loperamide (Loperamide Hcl) 2 Mg Tablet 2 Mg PO PRN Q6HRS PRN Vitamin C (Ascorbic Acid) 500 Mg Tablet 500 Mg PO BIDWMEALS Risperdal (Risperidone) 2 Mg Tablet 2 Mg PO BIDWMEALS Mucinex (Guaifenesin) 600 Mg Tablet.er 600 Mg PO BIDWMEALS Metformin Hcl 1,000 Mg Tablet 1,000 Mg PO BIDWMEALS Cymbalta (Duloxetine Hcl) 60 Mg Capsule.dr 60 Mg PO BIDWMEALS Depakote Sprinkle (Divalproex Sodium) 125 Mg Cap.sprink 250 Mg PO BIDWMEALS Coreg (Carvedilol) 12.5 Mg Tablet 12.5 Mg PO BIDWMEALS Vitamin D3 (Cholecalciferol (Vitamin D3)) 1,000 Unit Tablet 2,000 Unit PO DAILY Trazodone Hcl 100 Mg Tablet 100 Mg PO HS Multivitamins (Multivitamin) 1 Each Tablet 1 Tab PO DAILY Methotrexate (Methotrexate Sodium) 2.5 Mg Tablet 15 Mg PO WEEKLY Lisinopril 10 Mg Tablet 10 Mg PO DAILY Levothyroxine Sodium 100 Mcg Tablet 100 Mcg PO DAILYAC Lasix (Furosemide) 40 Mg Tablet 40 Mg PO DAILY Folic Acid 1 Mg Tablet 1 Mg PO DAILY Allopurinol 100 Mg Tablet 100 Mg PO DAILY Novolog (Insulin Aspart) 100 Unit/1 Ml Vial 5 Unit SQ TIDWMEALS Levemir (Insulin Detemir) 100 Unit/1 Ml Vial 10 Unit SQ HS I have reviewed the current psychotropics carefully including drug interactions. Risk benefit ratio favors no change other than as noted in my dictated progress note. Diagnosis: Problems: (1) Anxiety disorder (2) Major depressive disorder, recurrent episode (3) Impulse control disorder (4) Dementia in Alzheimer's disease with delusions (5) Dementia in Alzheimer's disease with depression (6) Dementia, vascular, with delusions (7) Dementia, vascular, with depression KAITLIN DREW MD Sep 29, 2018 22:31
--- NOTE | 2018-09-29 23:41 | PN ---
DATE: 09/29/2018 PSYCHIATRIC PROGRESS NOTE This note covers elements not covered in my initial note of 09/29/2017. SUBJECTIVE: Overall, per nursing report, the patient is wanting some more extra help towards the evening hours with cares for things she used to be able to do for herself. She slept 4-1/2 hours previous night. I have been left a note by Laya, manager social that the patient's facility is unable to accept her back because she is being screened for level 2, but a level 2 criteria is being clouded by the fact that the patient has a diagnosis of dementia. In fact on assessment during this hospitalization, the patient does have communication problems and is hard of hearing, but cognitively with these restrictions, she is reasonably intact as far as memory and thought processes. At this stage, she does not appear to have a diagnosis of dementia and her primary diagnoses remains bipolar disorder mixed with acute exacerbation, in partial remission; anxiety disorder, unspecified; impulse control disorder in addition to what's documented elsewhere in my notes. REVIEW OF SYSTEMS: Difficulty with her speech and extremely hard of hearing, much communication is nonverbal or through the white board. No CV, , pulmonary, eye system symptoms on review. MENTAL STATUS EXAM: The patient is oriented to herself, situations. Abstraction is fair, computation somewhat impaired, language function intact. Mood is slightly anxious, dysphoric at times, but improved. No suicidal or homicidal ideation. LABORATORY DATA: Reviewed. IMPRESSION: Bipolar 1 disorder, mixed with psychotic features; anxiety disorder, unspecified; impulse control disorder, unspecified. Rest unchanged from before. PLAN: From a psychiatric standpoint, continue Risperdal 1.5 mg b.i.d., Cymbalta 60 mg a day, Depakote Sprinkles 500 mg b.i.d., trazodone 100 mg at bedtime, may repeat x 1 for insomnia; Xanax p.r.n. KAITLIN DREW MD DR: STEFAN/satya JOB#: [id number] / [id number]
[2018-09-30 05:58] VITALS: BP 126/65
[2018-09-30] MEDS: LEVOTHYROXINE 100 MCG TABLET PO SCH (06:07)
[2018-09-30] MEDS: HYDROcodone/APAP 5/325MG 1 TAB TABLET PO PRN (07:20)
[2018-09-30] MEDS: metFORMIN 500 MG TABLET PO SCH ×2 (08:03→17:26)
[2018-09-30] MEDS: CARVEDILOL 6.25 MG TABLET PO SCH ×2 (08:03→17:27)
[2018-09-30] MEDS: DIVALPROEX 125 MG CAP.SPRINK PO SCH ×2 (08:03→17:27)
[2018-09-30] MEDS: ALLOPURINOL 100 MG TABLET. PO SCH (08:03)
[2018-09-30] MEDS: ASPIRIN ENTERIC COATED 81 MG TABLET.DR. PO SCH (08:04)
[2018-09-30] MEDS: LISINOPRIL 10 MG TABLET PO SCH (08:04)
[2018-09-30] MEDS: AMANTADINE HCL 100 MG CAPSULE PO SCH ×2 (08:04→20:09)
[2018-09-30] MEDS: MULTIVITAMIN with MINERAL TABLET. PO SCH (08:04)
[2018-09-30] MEDS: POTASSIUM CHLORIDE 20 MEQ TABLET.ER. PO SCH (08:04)
[2018-09-30] MEDS: LACTOBACILLUS RHAMNOSUS GG 1 CAPSULE. PO SCH ×2 (08:05→20:07)
[2018-09-30] MEDS: DULoxetine HCL 60 MG CAPSULE.DR PO SCH (08:05)
[2018-09-30] MEDS: FUROSEMIDE 40 MG TABLET PO SCH (08:05)
[2018-09-30] MEDS: FOLIC ACID 1 MG TABLET PO SCH (08:05)
[2018-09-30] MEDS: risperiDONE 0.5 MG TABLET. PO SCH ×2 (08:05→20:07)
[2018-09-30] MEDS: ASCORBIC ACID 500 MG TABLET PO SCH ×2 (08:05→17:27)
[2018-09-30] MEDS: CHOLECALCIFEROL (VITAMIN D3) 1,000 UNIT TABLET PO SCH (08:05)
[2018-09-30] MEDS: INSULIN LISPRO 300 UNITS/3 ML INSULN.PEN. SQ SCH ×3 (08:08→17:29)
[2018-09-30] MEDS: DICLOFENAC SODIUM 1% TOPICAL GEL 100GM TUBE. TP SCH ×4 (08:10→20:09)
[2018-09-30] MEDS: NYSTATIN TOPICAL POWDER 15GM BOTTLE. TP SCH ×3 (08:10→20:09)
[2018-09-30 16:53] VITALS: BP 106/62
[2018-09-30] MEDS: traZODone 100 MG TABLET. PO SCH (20:07)
[2018-09-30] MEDS: INSULIN GLARGINE 300 UNITS/3 ML INSULN.PEN. SQ SCH (20:10)
--- NOTE | 2018-09-30 20:14 | PN ---
DATE: 09/28/2018 This late entry for 09/28/2018 covers elements not covered in my initial note. SUBJECTIVE: I met with the patient in the evening and staffed at treatment team meeting earlier in the day. The patient slept 8 hours previous night. Appetite 100%, level 2 placement is being sought for her. Overall, the patient is somewhat withdrawn, much communication is nonverbal or writing on the white board, but no clear psychotic symptoms noted. Notwithstanding her being unable to hear or speak on close assessment, in fact, she is reasonably oriented. Memory is reasonable as well. She does have a prior diagnosis of dementia, but on further assessment, it appears that those cognitive deficits were probably reflective of her communication problems with hearing and speech rather than actual dementia. A level 2 placement is being pursued for her, which should be appropriate as she is not demented. REVIEW OF SYSTEMS: No CV, , pulmonary, eye system symptoms on review. MENTAL STATUS EXAM: Oriented to herself and situation. Speech as above. Abstraction fair. Computation difficult to assess. Language function intact. No active suicidal or homicidal ideation. Attention span is fair. Mood appears better. LABORATORY DATA: Reviewed. IMPRESSION: Bipolar 1 disorder, mixed with psychotic features, in partial remission; anxiety disorder, unspecified. Rest diagnoses as above. RECOMMENDATION: From a psychiatric standpoint, I would continue her current psychotropics including Risperdal, Cymbalta, Depakote Sprinkles, trazodone and Xanax p.r.n. Valproic acid level therapeutic at 71. KAITLIN DREW MD DR: STEFAN/satya JOB#: [id number] / [id number]
--- NOTE | 2018-09-30 22:43 | PDOC ---
Exam Note: Johnnie Note: Please also refer to the separate dictated note~for this date of service dictated separately.~Patient seen individually. Discussed the patient with Nursing staff reviewed the chart.~Reviewed interim history and current functioning. Reviewed vital signs,~Labs/ Radiology~and current medications noted below. Continue current treatment with the changes noted in the dictated addendum note Assessment: Vital Signs: Vital Signs Date Time Temp Pulse Resp B/P (MAP) Pulse Ox O2 Delivery O2 Flow Rate FiO2 09/30/18 17:27 81 106/62 09/30/18 16:53 98.0 21 94 Room Air I&O Intake and Output 09/30/18 07:01 Intake Total 1180 ml Balance 1180 ml Intake Oral 1180 ml # Voids 1 Labs: Laboratory Tests Test 09/30/18 07:11 09/30/18 11:25 09/30/18 16:57 09/30/18 19:13 Glucose (Fingerstick) 90 mg/dL (70-99) 98 mg/dL (70-99) 119 mg/dL (70-99) H 141 mg/dL (70-99) H Current Medications: Meds: Current Medications Acetaminophen (Tylenol) 650 mg PRN Q6HRS PRN PO PAIN / TEMP Last administered on 09/27/18at 06:27; Start 08/11/18 at 21:00 Multi-Ingredient Ointment (Analgesic [place]) 1 yaima PRN QID PRN TP MUSCLE PAIN; Start 08/11/18 at 21:00 Al Hydroxide/Mg Hydroxide (Mylanta Plus Xs) 15 ml PRN AFTMEALHC PRN PO DYSPEPSIA; Start 08/11/18 at 21:00 Magnesium Hydroxide (Milk Of Magnesia) 2,400 mg PRN QHS PRN PO CONSTIPATION; Start 08/11/18 at 21:00 Alprazolam (Xanax) 0.5 mg PRN Q6HRS PRN PO ANXIETY / AGITATION Last administered on 08/21/18at 20:06; Start 08/11/18 at 22:30 Divalproex Sodium (Depakote Sprinkles) 250 mg BIDWMEALS PO Last administered on 08/13/18at 18:08; Start 08/12/18 at 08:00; Stop 08/13/18 at 20:26; Status DC Duloxetine HCl (Cymbalta) 60 mg BIDWMEALS PO Last administered on 08/13/18 18 :08; Start 08/12/18 at 08:00; Stop 08/13/18 at 20:26; Status DC Risperidone (RisperDAL) 2 mg BIDWMEALS PO Last administered on 08/14/18 17:45 ; Start 08/12/18 at 08:00; Stop 08/14/18 at 18:45; Status DC Trazodone HCl (Desyrel) 100 mg HS PO Last administered on 09/30/18 20:07; Start 08/11/18 at 22:30 Ascorbic Acid (Vitamin C) 500 mg BIDWMEALS PO Last administered on 09/30/18 17: 27; Start 08/12/18 at 08:00 Calcium Carbonate/ Glycine (Tums) 500 mg PRN Q6HRS PRN PO INDIGESTION; Start 08/11/18 at 22:15 Vitamin D (Vitamin D3) 2,000 unit DAILY PO Last administered on 09/30/18 08:05 ; Start 08/12/18 at 09:00 Diclofenac Sodium (Voltaren) 1 yaima QID TP Last administered on 09/30/18 20:09; Start 08/12/18 at 09:00 Guaifenesin (Mucinex Er) 600 mg BIDWMEALS PO Last administered on 09/30/18 17: 27; Start 08/12/18 at 08:00 Acetaminophen/ Hydrocodone Bitart (Lortab 5/325) 1 tab PRN Q6HRS PRN PO PAIN Last administered on 09/30/18 07:20; Start 08/11/18 at 22:15 Levothyroxine Sodium (Synthroid) 100 mcg DAILY06 PO Last administered on 06:07; Start 08/12/18 at 06:00 Lisinopril (Prinivil) 10 mg DAILY PO Last administered on 09/30/18 08:04; Start 08/12/18 at 09:00 Nitroglycerin (Nitrostat) 0.4 mg PRN Q5MIN PRN SL CHEST PAIN; Start 08/11/18 at 22:15 Nystatin (Nystop) 1 yaima BID TP Last administered on 09/15/18 08:38; Start at 09:00; Stop 1/24/19 at 14:19; Status DC Allopurinol (Zyloprim) 100 mg DAILY PO Last administered on 09/30/18 08:03; Start 08/12/18 at 09:00 Carvedilol (Coreg) 12.5 mg BIDWMEALS PO Last administered on 09/03/18 08:42; Start 08/12/18 at 08:00; Stop 09/04/18 at 11:25; Status DC Folic Acid (Folic Acid) 1 mg DAILY PO Last administered on 09/30/18 08:05; Start 08/12/18 at 09:00 Furosemide (Lasix) 40 mg DAILY PO Last administered on 09/13/18 09:12; Start 08/12/18 at 09:00; Stop 09/13/18 at 17:08; Status DC Insulin Human Lispro (HumaLOG) 5 units TIDWMEALS SQ Last administered on 17:29; Start 08/12/18 at 08:00 Insulin Glargine (Lantus) 10 units QHS SQ Last administered on 09/30/18 20:10; Start 08/11/18 at 23:00 Loperamide HCl (Imodium) 2 mg PRN Q6HRS PRN PO DIARRHEA; Start 08/11/18 at 22: 45 Non-Formulary Medication (Magnesium Hydroxide (Milk Of Magnesia)) 2,400 mg PRN DAILY PRN PO CONSTIPATION; Start 08/11/18 at 22:15; Status UNV Metformin HCl (Glucophage) 1,000 mg BIDWMEALS PO Last administered on 09/30/18 17:26; Start 08/12/18 at 08:00 Methotrexate (Rheumatrex) 15 mg WEEKLY PO Last administered on 09/29/18 08:29; Start 08/18/18 at 09:00 Multivitamins/ Calcium (Thera-M Plus) 1 tab DAILY PO Last administered on 08:04; Start 08/12/18 at 09:00 Glucose (Insta-Glucose) 15 gm PRN Q15MIN PRN PO LOW BLOOD SUGAR; Start at 08:15 Divalproex Sodium (Depakote Sprinkles) 500 mg BIDWMEALS PO ; Start 08/13/18 at 20:27; Stop 08/13/18 at 20:36; Status DC Duloxetine HCl (Cymbalta) 60 mg DAILY PO Last administered on 09/30/18at 08:05; Start 08/14/18 at 09:00 Divalproex Sodium (Depakote Sprinkles) 500 mg BIDWMEALS PO Last administered on 09/30/18at 17:27; Start 08/14/18 at 08:00 Risperidone (RisperDAL) 1.5 mg DAILY PO ; Start 08/14/18 at 19:00; Stop at 19:00; Status DC Risperidone (RisperDAL) 2 mg HS PO Last administered on 08/16/18at 18:51; Start 08/14/18 at 21:00; Stop 08/17/18 at 18:30; Status DC Risperidone (RisperDAL) 1.5 mg HS PO ; Start 08/18/18 at 21:00; Stop 08/18/18 at 21:00; Status DC Risperidone (RisperDAL) 1.5 mg DAILY PO Last administered on 08/17/18at 08:08; Start 08/15/18 at 09:00; Stop 08/17/18 at 18:30; Status DC Amantadine HCl (Symmetrel) 100 mg DAILY PO Last administered on 08/23/18at 08:00 ; Start 08/17/18 at 09:00; Stop 08/23/18 at 21:37; Status DC Risperidone (RisperDAL) 1.5 mg BID PO Last administered on 08/19/18at 08:15; Start 08/17/18 at 21:00; Stop 08/19/18 at 15:58; Status DC Risperidone (RisperDAL) 1 mg BID PO Last administered on 08/22/18at 11:33; Start 08/19/18 at 21:00; Stop 08/22/18 at 17:30; Status DC Risperidone (RisperDAL) 1 mg QHS PO Last administered on 08/24/18at 20:41; Start 08/22/18 at 21:00; Stop 08/25/18 at 18:41; Status DC Risperidone (RisperDAL) 0.5 mg DAILY PO Last administered on 08/25/18at 11:14; Start 08/23/18 at 09:00; Stop 08/25/18 at 09:00; Status DC Amantadine HCl (Symmetrel) 100 mg BID PO Last administered on 09/30/18 20:09; Start 08/24/18 at 09:00 Risperidone (RisperDAL) 1.5 mg BID PO Last administered on 09/30/18 20:07; Start 08/26/18 at 09:00 Risperidone (RisperDAL) 2 mg HS PO Last administered on 08/25/18 20:03; Start 08/25/18 at 21:00; Stop 08/25/18 at 21:01; Status DC Trazodone HCl (Desyrel) 100 mg PRN QHS PRN PO INSOMNIA Last administered on 08/31 02:29; Start 08/30/18 at 18:45 Potassium Chloride (Klor-Con) 20 meq TID PO Last administered on 09/03/18 14: 25; Start 08/31/18 at 21:00; Stop 09/03/18 at 17:14; Status DC Doxycycline Hyclate (Vibra-Tab) 100 mg BID PO Last administered on 09/13/18 20 :13; Start 09/03/18 at 21:00; Stop 09/13/18 at 20:59; Status DC Lactobacillus Rhamnosus (Culturelle) 1 cap BID PO Last administered on 20:07; Start 09/03/18 at 21:00 Carvedilol (Coreg) 6.25 mg BIDWMEALS PO Last administered on 09/30/18 17:27; Start 09/04/18 at 17:00 Aspirin (Aspirin Enteric Coated) 81 mg DAILYWBKFT PO Last administered on 08:04; Start 09/14/18 at 08:00 Furosemide (Lasix) 40 mg BID PO Last administered on 09/15/18 08:36; Start at 21:00; Stop 09/15/18 at 11:23; Status DC Potassium Chloride (Klor-Con) 20 meq BID PO Last administered on 09/15/18 08: 35; Start 09/13/18 at 21:00; Stop 09/15/18 at 11:23; Status DC Furosemide (Lasix) 40 mg DAILY PO Last administered on 09/30/18 08:05; Start at 09:00 Potassium Chloride (Klor-Con) 20 meq DAILY PO Last administered on 09/30/18 08: 04; Start 09/16/18 at 09:00 Nystatin (Nystop) 1 yaima TID TP Last administered on 09/30/18 20:09; Start 09/15 at 21:00 Levothyroxine Sodium (Synthroid) 100 mcg 1X ONCE PO Last administered on at 05:48; Start 09/23/18 at 06:00; Stop 09/23/18 at 06:01; Status DC Active Scripts Active Reported Xanax (Alprazolam) 0.5 Mg Tablet 0.5 Mg PO PRN Q6HRS PRN Hydrocodone-Apap 5-325 (Hydrocodone Bit/Acetaminophen) 1 Each Tablet 1 Tab PO PRN Q6HRS PRN Voltaren (Diclofenac Sodium) 100 Gm Gel..gram. 4 Gm TP QID Nystatin 15 Gm Powder 1 Yaima TP BID Tums (Calcium Carbonate) 200 Mg Tab.chew 2 Tab PO PRN Q6HRS PRN Nitrostat (Nitroglycerin) 0.4 Mg Tab.subl 0.4 Mg SL PRN Q5MIN PRN Milk Of Magnesia (Magnesium Hydroxide) 2,400 Mg/10 Ml Oral.susp 2,400 Mg PO PRN DAILY PRN Loperamide (Loperamide Hcl) 2 Mg Tablet 2 Mg PO PRN Q6HRS PRN Vitamin C (Ascorbic Acid) 500 Mg Tablet 500 Mg PO BIDWMEALS Risperdal (Risperidone) 2 Mg Tablet 2 Mg PO BIDWMEALS Mucinex (Guaifenesin) 600 Mg Tablet.er 600 Mg PO BIDWMEALS Metformin Hcl 1,000 Mg Tablet 1,000 Mg PO BIDWMEALS Cymbalta (Duloxetine Hcl) 60 Mg Capsule.dr 60 Mg PO BIDWMEALS Depakote Sprinkle (Divalproex Sodium) 125 Mg Cap.sprink 250 Mg PO BIDWMEALS Coreg (Carvedilol) 12.5 Mg Tablet 12.5 Mg PO BIDWMEALS Vitamin D3 (Cholecalciferol (Vitamin D3)) 1,000 Unit Tablet 2,000 Unit PO DAILY Trazodone Hcl 100 Mg Tablet 100 Mg PO HS Multivitamins (Multivitamin) 1 Each Tablet 1 Tab PO DAILY Methotrexate (Methotrexate Sodium) 2.5 Mg Tablet 15 Mg PO WEEKLY Lisinopril 10 Mg Tablet 10 Mg PO DAILY Levothyroxine Sodium 100 Mcg Tablet 100 Mcg PO DAILYAC Lasix (Furosemide) 40 Mg Tablet 40 Mg PO DAILY Folic Acid 1 Mg Tablet 1 Mg PO DAILY Allopurinol 100 Mg Tablet 100 Mg PO DAILY Novolog (Insulin Aspart) 100 Unit/1 Ml Vial 5 Unit SQ TIDWMEALS Levemir (Insulin Detemir) 100 Unit/1 Ml Vial 10 Unit SQ HS I have reviewed the current psychotropics carefully including drug interactions. Risk benefit ratio favors no change other than as noted in my dictated progress note. Diagnosis: Problems: (1) Anxiety disorder (2) Major depressive disorder, recurrent episode (3) Impulse control disorder (4) Dementia in Alzheimer's disease with delusions (5) Dementia in Alzheimer's disease with depression (6) Dementia, vascular, with delusions (7) Dementia, vascular, with depression KAITLIN DREW MD Sep 30, 2018 22:43
--- NOTE | 2018-10-01 03:35 | PN ---
DATE: 09/29/2018 This late entry for 09/29/2018 covers elements not covered in my initial note. SUBJECTIVE: I met with the patient in the evening. The patient slept 4-1/2 hours previous night. At night, she was demanding, wanting more help with cares even if she is able to do certain things. She has been screened for level 2 DICTATION ENDS HERE KAITLIN DREW MD DR: STEFAN/satya JOB#: [id number] / [id number]
[2018-10-01] MEDS: LEVOTHYROXINE 100 MCG TABLET PO SCH (04:53)
[2018-10-01 06:35] VITALS: BP 99/52
[2018-10-01] MEDS: metFORMIN 500 MG TABLET PO SCH ×2 (08:15→17:26)
[2018-10-01] MEDS: DIVALPROEX 125 MG CAP.SPRINK PO SCH ×2 (08:15→17:26)
[2018-10-01] MEDS: ASPIRIN ENTERIC COATED 81 MG TABLET.DR. PO SCH (08:15)
[2018-10-01] MEDS: CARVEDILOL 6.25 MG TABLET PO SCH ×2 (08:15→17:26)
[2018-10-01] MEDS: ASCORBIC ACID 500 MG TABLET PO SCH ×2 (08:15→17:27)
[2018-10-01] MEDS: INSULIN LISPRO 300 UNITS/3 ML INSULN.PEN. SQ SCH ×3 (08:15→17:39)
[2018-10-01] MEDS: FOLIC ACID 1 MG TABLET PO SCH (08:16)
[2018-10-01] MEDS: LACTOBACILLUS RHAMNOSUS GG 1 CAPSULE. PO SCH ×2 (08:16→22:08)
[2018-10-01] MEDS: DULoxetine HCL 60 MG CAPSULE.DR PO SCH (08:16)
[2018-10-01] MEDS: FUROSEMIDE 40 MG TABLET PO SCH (08:17)
[2018-10-01] MEDS: LISINOPRIL 10 MG TABLET PO SCH (08:17)
[2018-10-01] MEDS: POTASSIUM CHLORIDE 20 MEQ TABLET.ER. PO SCH (08:17)
[2018-10-01] MEDS: NYSTATIN TOPICAL POWDER 15GM BOTTLE. TP SCH ×3 (08:18→22:10)
[2018-10-01] MEDS: MULTIVITAMIN with MINERAL TABLET. PO SCH (08:18)
[2018-10-01] MEDS: CHOLECALCIFEROL (VITAMIN D3) 1,000 UNIT TABLET PO SCH (08:18)
[2018-10-01] MEDS: AMANTADINE HCL 100 MG CAPSULE PO SCH ×2 (08:18→22:08)
[2018-10-01] MEDS: ALLOPURINOL 100 MG TABLET. PO SCH (08:18)
[2018-10-01] MEDS: risperiDONE 0.5 MG TABLET. PO SCH ×2 (08:18→22:08)
[2018-10-01] MEDS: DICLOFENAC SODIUM 1% TOPICAL GEL 100GM TUBE. TP SCH ×4 (08:19→22:10)
[2018-10-01 09:24] LABS: BASO % 1 % (0-3); EOS # 0.3 x10^3/uL (0.0-0.7); EOS % 8 % (0-3); HEMATOCRIT 37.9 % (36.0-47.0); HEMOGLOBIN 12.5 g/dL (12.0-15.5); LYMPH # 1.6 x10^3/uL (1.0-4.8); LYMPH % 39 % (24-48); MEAN CORPUSCULAR HEMOGLOBIN 33 pg (25-35); MEAN CORPUSCULAR HGB CONC 33 g/dL (31-37); MEAN CORPUSCULAR VOLUME 100 fL (79-100); MONO # 0.5 x10^3/uL (0.0-1.1); MONO % 11 % (0-9); NEUT # 1.7 x10^3uL (1.8-7.7); NEUT % 41 % (31-73); PLATELET COUNT 179 x10^3/uL (140-400); RED BLOOD COUNT 3.81 x10^6/uL (3.50-5.40); RED CELL DISTRIBUTION WIDTH 20.2 % (11.5-14.5); WHITE BLOOD COUNT 4.2 x10^3/uL (4.0-11.0)
[2018-10-01 09:37] LABS: ALBUMIN 2.5 g/dL (3.4-5.0); ALBUMIN/GLOBULIN RATIO 0.6 (1.0-1.7); CREATININE 1.1 mg/dL (0.6-1.0); GFR 50.7; POTASSIUM 4.9 mmol/L (3.5-5.1); TOTAL BILIRUBIN 0.3 mg/dL (0.2-1.0); TOTAL PROTEIN 6.4 g/dL (6.4-8.2)
[2018-10-01 10:30] LABS: ANISOCYTOSIS PRESENT; OVALOCYTES OCC; PLT ESTIMATE ADEQUATE (ADEQUATE)
[2018-10-01 16:49] VITALS: BP 129/67
--- NOTE | 2018-10-01 22:03 | PDOC ---
Exam Note: Johnnie Note: Please also refer to the separate dictated note~for this date of service dictated separately.~Patient seen individually. Discussed the patient with Nursing staff reviewed the chart.~Reviewed interim history and current functioning. Reviewed vital signs,~Labs/ Radiology~and current medications noted below. Continue current treatment with the changes noted in the dictated addendum note Assessment: Vital Signs: Vital Signs Date Time Temp Pulse Resp B/P (MAP) Pulse Ox O2 Delivery O2 Flow Rate FiO2 10/01/18 17:26 92 129/67 10/01/18 16:49 98.6 18 96 10/01/18 06:35 Room Air I&O Intake and Output 10/01/18 07:01 Intake Total 1080 ml Balance 1080 ml Intake Oral 1080 ml Labs: Laboratory Tests Test 10/01/18 07:12 10/01/18 09:05 10/01/18 11:33 10/01/18 16:34 Glucose (Fingerstick) 87 mg/dL (70-99) 110 mg/dL (70-99) H 142 mg/dL (70-99) H White Blood Count 4.2 x10^3/uL (4.0-11.0) # Red Blood Count 3.81 x10^6/uL (3.50-5.40) Hemoglobin 12.5 g/dL (12.0-15.5) Hematocrit 37.9 % (36.0-47.0) Mean Corpuscular Volume 100 fL (79-100) Mean Corpuscular Hemoglobin 33 pg (25-35) Mean Corpuscular Hemoglobin Concent 33 g/dL (31-37) Red Cell Distribution Width 20.2 % (11.5-14.5) H Platelet Count 179 x10^3/uL (140-400) Neutrophils (%) (Auto) 41 % (31-73) Lymphocytes (%) (Auto) 39 % (24-48) Monocytes (%) (Auto) 11 % (0-9) H Eosinophils (%) (Auto) 8 % (0-3) H Basophils (%) (Auto) 1 % (0-3) Neutrophils # (Auto) 1.7 x10^3uL (1.8-7.7) L Lymphocytes # (Auto) 1.6 x10^3/uL (1.0-4.8) Monocytes # (Auto) 0.5 x10^3/uL (0.0-1.1) Eosinophils # (Auto) 0.3 x10^3/uL (0.0-0.7) Basophils # (Auto) 0.0 x10^3/uL (0.0-0.2) Platelet Estimate Adequate (ADEQUATE) Anisocytosis Present Ovalocytes Occ Sodium Level 140 mmol/L (136-145) Potassium Level 4.9 mmol/L (3.5-5.1) Chloride Level 101 mmol/L (98-107) Carbon Dioxide Level 32 mmol/L (21-32) Anion Gap 7 (6-14) Blood Urea Nitrogen 12 mg/dL (7-20) Creatinine 1.1 mg/dL (0.6-1.0) H Estimated GFR (Cockcroft-Gault) 50.7 BUN/Creatinine Ratio 11 (6-20) Glucose Level 164 mg/dL (70-99) H Calcium Level 9.0 mg/dL (8.5-10.1) Total Bilirubin 0.3 mg/dL (0.2-1.0) Aspartate Amino Transferase (AST) 23 U/L (15-37) Alanine Aminotransferase (ALT) 15 U/L (14-59) Alkaline Phosphatase 75 U/L (46-116) Total Protein 6.4 g/dL (6.4-8.2) Albumin 2.5 g/dL (3.4-5.0) L Albumin/Globulin Ratio 0.6 (1.0-1.7) L Test 10/01/18 19:15 Glucose (Fingerstick) 152 mg/dL (70-99) H Current Medications: Meds: Current Medications Acetaminophen (Tylenol) 650 mg PRN Q6HRS PRN PO PAIN / TEMP Last administered on 09/27/18at 06:27; Start 08/11/18 at 21:00 Multi-Ingredient Ointment (Analgesic [place]) 1 yaima PRN QID PRN TP MUSCLE PAIN; Start 08/11/18 at 21:00 Al Hydroxide/Mg Hydroxide (Mylanta Plus Xs) 15 ml PRN AFTMEALHC PRN PO DYSPEPSIA; Start 08/11/18 at 21:00 Magnesium Hydroxide (Milk Of Magnesia) 2,400 mg PRN QHS PRN PO CONSTIPATION; Start 08/11/18 at 21:00 Alprazolam (Xanax) 0.5 mg PRN Q6HRS PRN PO ANXIETY / AGITATION Last administered on 08/21/18 20:06; Start 08/11/18 at 22:30 Divalproex Sodium (Depakote Sprinkles) 250 mg BIDWMEALS PO Last administered on 08/13/18 18:08; Start 08/12/18 at 08:00; Stop 08/13/18 at 20:26; Status DC Duloxetine HCl (Cymbalta) 60 mg BIDWMEALS PO Last administered on 08/13/18 18 :08; Start 08/12/18 at 08:00; Stop 08/13/18 at 20:26; Status DC Risperidone (RisperDAL) 2 mg BIDWMEALS PO Last administered on 08/14/18at 17:45 ; Start 08/12/18 at 08:00; Stop 08/14/18 at 18:45; Status DC Trazodone HCl (Desyrel) 100 mg HS PO Last administered on 09/30/18 20:07; Start 08/11/18 at 22:30 Ascorbic Acid (Vitamin C) 500 mg BIDWMEALS PO Last administered on 10/01/18 17: 27; Start 08/12/18 at 08:00 Calcium Carbonate/ Glycine (Tums) 500 mg PRN Q6HRS PRN PO INDIGESTION; Start 08/11/18 at 22:15 Vitamin D (Vitamin D3) 2,000 unit DAILY PO Last administered on 10/01/18 08:18 ; Start 08/12/18 at 09:00 Diclofenac Sodium (Voltaren) 1 yaima QID TP Last administered on 10/01/18 12:09; Start 08/12/18 at 09:00 Guaifenesin (Mucinex Er) 600 mg BIDWMEALS PO Last administered on 10/01/18 17: 27; Start 08/12/18 at 08:00 Acetaminophen/ Hydrocodone Bitart (Lortab 5/325) 1 tab PRN Q6HRS PRN PO PAIN Last administered on 09/30/18 07:20; Start 08/11/18 at 22:15 Levothyroxine Sodium (Synthroid) 100 mcg DAILY06 PO Last administered on 04:53; Start 08/12/18 at 06:00 Lisinopril (Prinivil) 10 mg DAILY PO Last administered on 09/30/18 08:04; Start 08/12/18 at 09:00 Nitroglycerin (Nitrostat) 0.4 mg PRN Q5MIN PRN SL CHEST PAIN; Start 08/11/18 at 22:15 Nystatin (Nystop) 1 yaima BID TP Last administered on 09/15/18 08:38; Start at 09:00; Stop 09/15/18 at 14:19; Status DC Allopurinol (Zyloprim) 100 mg DAILY PO Last administered on 10/01/18 08:18; Start 08/12/18 at 09:00 Carvedilol (Coreg) 12.5 mg BIDWMEALS PO Last administered on 09/03/18 08:42; Start 08/12/18 at 08:00; Stop 09/04/18 at 11:25; Status DC Folic Acid (Folic Acid) 1 mg DAILY PO Last administered on 10/01/18 08:16; Start 08/12/18 at 09:00 Furosemide (Lasix) 40 mg DAILY PO Last administered on 09/13/18 09:12; Start 08/12/18 at 09:00; Stop 09/13/18 at 17:08; Status DC Insulin Human Lispro (HumaLOG) 5 units TIDWMEALS SQ Last administered on 17:39; Start 08/12/18 at 08:00 Insulin Glargine (Lantus) 10 units QHS SQ Last administered on 09/30/18 20:10; Start 08/11/18 at 23:00 Loperamide HCl (Imodium) 2 mg PRN Q6HRS PRN PO DIARRHEA; Start 08/11/18 at 22: 45 Non-Formulary Medication (Magnesium Hydroxide (Milk Of Magnesia)) 2,400 mg PRN DAILY PRN PO CONSTIPATION; Start 08/11/18 at 22:15; Status UNV Metformin HCl (Glucophage) 1,000 mg BIDWMEALS PO Last administered on 10/01/18 17:26; Start 08/12/18 at 08:00 Methotrexate (Rheumatrex) 15 mg WEEKLY PO Last administered on 09/29/18 08:29; Start 08/18/18 at 09:00 Multivitamins/ Calcium (Thera-M Plus) 1 tab DAILY PO Last administered on 08:18; Start 08/12/18 at 09:00 Glucose (Insta-Glucose) 15 gm PRN Q15MIN PRN PO LOW BLOOD SUGAR; Start at 08:15 Divalproex Sodium (Depakote Sprinkles) 500 mg BIDWMEALS PO ; Start 08/13/18 at 20:27; Stop 08/13/18 at 20:36; Status DC Duloxetine HCl (Cymbalta) 60 mg DAILY PO Last administered on 10/01/18 08:16; Start 08/14/18 at 09:00 Divalproex Sodium (Depakote Sprinkles) 500 mg BIDWMEALS PO Last administered on 10/01/18 17:26; Start 08/14/18 at 08:00 Risperidone (RisperDAL) 1.5 mg DAILY PO ; Start 08/14/18 at 19:00; Stop at 19:00; Status DC Risperidone (RisperDAL) 2 mg HS PO Last administered on 08/16/18at 18:51; Start 08/14/18 at 21:00; Stop 08/17/18 at 18:30; Status DC Risperidone (RisperDAL) 1.5 mg HS PO ; Start 08/18/18 at 21:00; Stop 08/18/18 at 21:00; Status DC Risperidone (RisperDAL) 1.5 mg DAILY PO Last administered on 08/17/18at 08:08; Start 08/15/18 at 09:00; Stop 08/17/18 at 18:30; Status DC Amantadine HCl (Symmetrel) 100 mg DAILY PO Last administered on 08/23/18 08:00 ; Start 08/17/18 at 09:00; Stop 08/23/18 at 21:37; Status DC Risperidone (RisperDAL) 1.5 mg BID PO Last administered on 08/19/18at 08:15; Start 08/17/18 at 21:00; Stop 08/19/18 at 15:58; Status DC Risperidone (RisperDAL) 1 mg BID PO Last administered on 08/22/18at 11:33; Start 08/19/18 at 21:00; Stop 08/22/18 at 17:30; Status DC Risperidone (RisperDAL) 1 mg QHS PO Last administered on 08/24/18 20:41; Start 08/22/18 at 21:00; Stop 08/25/18 at 18:41; Status DC Risperidone (RisperDAL) 0.5 mg DAILY PO Last administered on 08/25/18 11:14; Start 08/23/18 at 09:00; Stop 08/25/18 at 09:00; Status DC Amantadine HCl (Symmetrel) 100 mg BID PO Last administered on 10/01/18 08:18; Start 08/24/18 at 09:00 Risperidone (RisperDAL) 1.5 mg BID PO Last administered on 10/01/18 08:18; Start 08/26/18 at 09:00 Risperidone (RisperDAL) 2 mg HS PO Last administered on 08/25/18 20:03; Start 08/25/18 at 21:00; Stop 08/25/18 at 21:01; Status DC Trazodone HCl (Desyrel) 100 mg PRN QHS PRN PO INSOMNIA Last administered on 08/31 02:29; Start 08/30/18 at 18:45 Potassium Chloride (Klor-Con) 20 meq TID PO Last administered on 09/03/18 14: 25; Start 08/31/18 at 21:00; Stop 09/03/18 at 17:14; Status DC Doxycycline Hyclate (Vibra-Tab) 100 mg BID PO Last administered on 09/13/18 20 :13; Start 09/03/18 at 21:00; Stop 09/13/18 at 20:59; Status DC Lactobacillus Rhamnosus (Culturelle) 1 cap BID PO Last administered on 08:16; Start 09/03/18 at 21:00 Carvedilol (Coreg) 6.25 mg BIDWMEALS PO Last administered on 10/01/18 17:26; Start 09/04/18 at 17:00 Aspirin (Aspirin Enteric Coated) 81 mg DAILYWBKFT PO Last administered on 08:15; Start 09/14/18 at 08:00 Furosemide (Lasix) 40 mg BID PO Last administered on 09/15/18at 08:36; Start at 21:00; Stop 09/15/18 at 11:23; Status DC Potassium Chloride (Klor-Con) 20 meq BID PO Last administered on 09/15/18at 08: 35; Start 09/13/18 at 21:00; Stop 09/15/18 at 11:23; Status DC Furosemide (Lasix) 40 mg DAILY PO Last administered on 09/30/18at 08:05; Start at 09:00 Potassium Chloride (Klor-Con) 20 meq DAILY PO Last administered on 09/30/18at 08: 04; Start 09/16/18 at 09:00 Nystatin (Nystop) 1 yaima TID TP Last administered on 10/01/18at 14:17; Start 09/15 at 21:00 Levothyroxine Sodium (Synthroid) 100 mcg 1X ONCE PO Last administered on at 05:48; Start 09/23/18 at 06:00; Stop 09/23/18 at 06:01; Status DC Active Scripts Active Reported Xanax (Alprazolam) 0.5 Mg Tablet 0.5 Mg PO PRN Q6HRS PRN Hydrocodone-Apap 5-325 (Hydrocodone Bit/Acetaminophen) 1 Each Tablet 1 Tab PO PRN Q6HRS PRN Voltaren (Diclofenac Sodium) 100 Gm Gel..gram. 4 Gm TP QID Nystatin 15 Gm Powder 1 Yaima TP BID Tums (Calcium Carbonate) 200 Mg Tab.chew 2 Tab PO PRN Q6HRS PRN Nitrostat (Nitroglycerin) 0.4 Mg Tab.subl 0.4 Mg SL PRN Q5MIN PRN Milk Of Magnesia (Magnesium Hydroxide) 2,400 Mg/10 Ml Oral.susp 2,400 Mg PO PRN DAILY PRN Loperamide (Loperamide Hcl) 2 Mg Tablet 2 Mg PO PRN Q6HRS PRN Vitamin C (Ascorbic Acid) 500 Mg Tablet 500 Mg PO BIDWMEALS Risperdal (Risperidone) 2 Mg Tablet 2 Mg PO BIDWMEALS Mucinex (Guaifenesin) 600 Mg Tablet.er 600 Mg PO BIDWMEALS Metformin Hcl 1,000 Mg Tablet 1,000 Mg PO BIDWMEALS Cymbalta (Duloxetine Hcl) 60 Mg Capsule.dr 60 Mg PO BIDWMEALS Depakote Sprinkle (Divalproex Sodium) 125 Mg Cap.sprink 250 Mg PO BIDWMEALS Coreg (Carvedilol) 12.5 Mg Tablet 12.5 Mg PO BIDWMEALS Vitamin D3 (Cholecalciferol (Vitamin D3)) 1,000 Unit Tablet 2,000 Unit PO DAILY Trazodone Hcl 100 Mg Tablet 100 Mg PO HS Multivitamins (Multivitamin) 1 Each Tablet 1 Tab PO DAILY Methotrexate (Methotrexate Sodium) 2.5 Mg Tablet 15 Mg PO WEEKLY Lisinopril 10 Mg Tablet 10 Mg PO DAILY Levothyroxine Sodium 100 Mcg Tablet 100 Mcg PO DAILYAC Lasix (Furosemide) 40 Mg Tablet 40 Mg PO DAILY Folic Acid 1 Mg Tablet 1 Mg PO DAILY Allopurinol 100 Mg Tablet 100 Mg PO DAILY Novolog (Insulin Aspart) 100 Unit/1 Ml Vial 5 Unit SQ TIDWMEALS Levemir (Insulin Detemir) 100 Unit/1 Ml Vial 10 Unit SQ HS I have reviewed the current psychotropics carefully including drug interactions. Risk benefit ratio favors no change other than as noted in my dictated progress note. Diagnosis: Problems: (1) Anxiety disorder (2) Major depressive disorder, recurrent episode (3) Impulse control disorder (4) Dementia in Alzheimer's disease with delusions (5) Dementia in Alzheimer's disease with depression (6) Dementia, vascular, with delusions (7) Dementia, vascular, with depression KAITLIN DREW MD Oct 01, 2018 22:03
[2018-10-01] MEDS: traZODone 100 MG TABLET. PO SCH (22:08)
[2018-10-01] MEDS: INSULIN GLARGINE 300 UNITS/3 ML INSULN.PEN. SQ SCH (22:20)
--- NOTE | 2018-10-01 23:34 | PN ---
DATE: 09/30/2018 PSYCHIATRIC PROGRESS NOTE This late entry 09/30/2017 covers elements not covered in my initial note. SUBJECTIVE: I met with the patient in the evening. The patient slept 7-1/4 hours previous night. Was complaining of some pain in the morning, received hydrocodone. Otherwise, behaviorally doing better, somewhat withdrawn, but not aggressive. REVIEW OF SYSTEMS: Unable to speak or hear. Communication is nonverbal. No CV, , pulmonary, eye system symptoms on review. MENTAL STATUS EXAM: Oriented to herself and situation. Speech as above, abstraction fair, computation impaired, language function intact, attention span short. Mood and affect showing improvement. IMPRESSION: Bipolar 1 disorder, mixed with psychotic features, in partial remission; anxiety disorder, unspecified. Rest as above. PLAN: Continue psychotropics from initial note. Clarification of the patient's diagnosis, is indicative that she does not have a diagnosis of dementia. KAITLIN DREW MD DR: STEFAN/satya JOB#: [id number] / [id number]
[2018-10-02] MEDS: LEVOTHYROXINE 100 MCG TABLET PO SCH (05:15)
[2018-10-02] MEDS: HYDROcodone/APAP 5/325MG 1 TAB TABLET PO PRN (05:59)
[2018-10-02 06:53] VITALS: BP 104/64
[2018-10-02] MEDS: CARVEDILOL 6.25 MG TABLET PO SCH ×2 (08:43→17:22)
[2018-10-02] MEDS: DIVALPROEX 125 MG CAP.SPRINK PO SCH ×2 (08:43→17:23)
[2018-10-02] MEDS: ASPIRIN ENTERIC COATED 81 MG TABLET.DR. PO SCH (08:43)
[2018-10-02] MEDS: metFORMIN 500 MG TABLET PO SCH ×2 (08:44→17:23)
[2018-10-02] MEDS: ASCORBIC ACID 500 MG TABLET PO SCH ×2 (08:44→17:23)
[2018-10-02] MEDS: FOLIC ACID 1 MG TABLET PO SCH (08:45)
[2018-10-02] MEDS: POTASSIUM CHLORIDE 20 MEQ TABLET.ER. PO SCH (08:45)
[2018-10-02] MEDS: LACTOBACILLUS RHAMNOSUS GG 1 CAPSULE. PO SCH ×2 (08:45→19:24)
[2018-10-02] MEDS: FUROSEMIDE 40 MG TABLET PO SCH (08:45)
[2018-10-02] MEDS: DULoxetine HCL 60 MG CAPSULE.DR PO SCH (08:45)
[2018-10-02] MEDS: INSULIN LISPRO 300 UNITS/3 ML INSULN.PEN. SQ SCH ×3 (08:45→17:23)
[2018-10-02] MEDS: NYSTATIN TOPICAL POWDER 15GM BOTTLE. TP SCH ×3 (08:46→19:28)
[2018-10-02] MEDS: DICLOFENAC SODIUM 1% TOPICAL GEL 100GM TUBE. TP SCH ×4 (08:46→19:28)
[2018-10-02] MEDS: ALLOPURINOL 100 MG TABLET. PO SCH (08:46)
[2018-10-02] MEDS: LISINOPRIL 10 MG TABLET PO SCH (08:46)
[2018-10-02] MEDS: MULTIVITAMIN with MINERAL TABLET. PO SCH (08:46)
[2018-10-02] MEDS: AMANTADINE HCL 100 MG CAPSULE PO SCH ×2 (08:46→19:28)
[2018-10-02] MEDS: CHOLECALCIFEROL (VITAMIN D3) 1,000 UNIT TABLET PO SCH (08:46)
[2018-10-02] MEDS: risperiDONE 0.5 MG TABLET. PO SCH ×2 (08:46→19:25)
[2018-10-02 17:06] VITALS: BP 136/66
[2018-10-02] MEDS: traZODone 100 MG TABLET. PO SCH (19:24)
[2018-10-02] MEDS: INSULIN GLARGINE 300 UNITS/3 ML INSULN.PEN. SQ SCH (19:46)
--- NOTE | 2018-10-02 22:49 | PDOC ---
Exam Note: Johnnie Note: Please also refer to the separate dictated note~for this date of service dictated separately.~Patient seen individually. Discussed the patient with Nursing staff reviewed the chart.~Reviewed interim history and current functioning. Reviewed vital signs,~Labs/ Radiology~and current medications noted below. Continue current treatment with the changes noted in the dictated addendum note Assessment: Vital Signs: Vital Signs Date Time Temp Pulse Resp B/P (MAP) Pulse Ox O2 Delivery O2 Flow Rate FiO2 10/02/18 17:22 75 136/66 10/02/18 17:06 97.8 20 96 10/02/18 06:53 Room Air I&O Intake and Output 10/02/18 07:01 Intake Total 1560 ml Balance 1560 ml Intake Oral 1560 ml Labs: Laboratory Tests Test 10/02/18 08:07 10/02/18 11:59 10/02/18 17:17 10/02/18 19:16 Glucose (Fingerstick) 78 mg/dL (70-99) 103 mg/dL (70-99) H 78 mg/dL (70-99) 122 mg/dL (70-99) H Current Medications: Meds: Current Medications Acetaminophen (Tylenol) 650 mg PRN Q6HRS PRN PO PAIN / TEMP Last administered on 09/27/18at 06:27; Start 08/11/18 at 21:00 Multi-Ingredient Ointment (Analgesic [place]) 1 yaima PRN QID PRN TP MUSCLE PAIN; Start 08/11/18 at 21:00 Al Hydroxide/Mg Hydroxide (Mylanta Plus Xs) 15 ml PRN AFTMEALHC PRN PO DYSPEPSIA; Start 08/11/18 at 21:00 Magnesium Hydroxide (Milk Of Magnesia) 2,400 mg PRN QHS PRN PO CONSTIPATION; Start 08/11/18 at 21:00 Alprazolam (Xanax) 0.5 mg PRN Q6HRS PRN PO ANXIETY / AGITATION Last administered on 08/21/18at 20:06; Start 08/11/18 at 22:30 Divalproex Sodium (Depakote Sprinkles) 250 mg BIDWMEALS PO Last administered on 08/13/18at 18:08; Start 08/12/18 at 08:00; Stop 08/13/18 at 20:26; Status DC Duloxetine HCl (Cymbalta) 60 mg BIDWMEALS PO Last administered on 08/13/18at 18 :08; Start 08/12/18 at 08:00; Stop 08/13/18 at 20:26; Status DC Risperidone (RisperDAL) 2 mg BIDWMEALS PO Last administered on 08/14/18 17:45 ; Start 08/12/18 at 08:00; Stop 08/14/18 at 18:45; Status DC Trazodone HCl (Desyrel) 100 mg HS PO Last administered on 10/02/18 19:24; Start 08/11/18 at 22:30 Ascorbic Acid (Vitamin C) 500 mg BIDWMEALS PO Last administered on 10/02/18 17 :23; Start 08/12/18 at 08:00 Calcium Carbonate/ Glycine (Tums) 500 mg PRN Q6HRS PRN PO INDIGESTION; Start 08/11/18 at 22:15 Vitamin D (Vitamin D3) 2,000 unit DAILY PO Last administered on 10/02/18 08:46 ; Start 08/12/18 at 09:00 Diclofenac Sodium (Voltaren) 1 yaima QID TP Last administered on 10/02/18 19:28 ; Start 08/12/18 at 09:00 Guaifenesin (Mucinex Er) 600 mg BIDWMEALS PO Last administered on 10/02/18 17: 23; Start 08/12/18 at 08:00 Acetaminophen/ Hydrocodone Bitart (Lortab 5/325) 1 tab PRN Q6HRS PRN PO PAIN Last administered on 10/02/18 05:59; Start 08/11/18 at 22:15 Levothyroxine Sodium (Synthroid) 100 mcg DAILY06 PO Last administered on 05:15; Start 08/12/18 at 06:00 Lisinopril (Prinivil) 10 mg DAILY PO Last administered on 09/30/18 08:04; Start 08/12/18 at 09:00 Nitroglycerin (Nitrostat) 0.4 mg PRN Q5MIN PRN SL CHEST PAIN; Start 08/11/18 at 22:15 Nystatin (Nystop) 1 yaima BID TP Last administered on 09/15/18 08:38; Start at 09:00; Stop 09/15/18 at 14:19; Status DC Allopurinol (Zyloprim) 100 mg DAILY PO Last administered on 10/02/18 08:46; Start 08/12/18 at 09:00 Carvedilol (Coreg) 12.5 mg BIDWMEALS PO Last administered on 09/03/18 08:42; Start 08/12/18 at 08:00; Stop 09/04/18 at 11:25; Status DC Folic Acid (Folic Acid) 1 mg DAILY PO Last administered on 10/02/18 08:45; Start 08/12/18 at 09:00 Furosemide (Lasix) 40 mg DAILY PO Last administered on 09/13/18 09:12; Start 08/12/18 at 09:00; Stop 09/13/18 at 17:08; Status DC Insulin Human Lispro (HumaLOG) 5 units TIDWMEALS SQ Last administered on 12:41; Start 08/12/18 at 08:00 Insulin Glargine (Lantus) 10 units QHS SQ Last administered on 10/02/18 19:46 ; Start 08/11/18 at 23:00 Loperamide HCl (Imodium) 2 mg PRN Q6HRS PRN PO DIARRHEA; Start 08/11/18 at 22: 45 Non-Formulary Medication (Magnesium Hydroxide (Milk Of Magnesia)) 2,400 mg PRN DAILY PRN PO CONSTIPATION; Start 08/11/18 at 22:15; Status UNV Metformin HCl (Glucophage) 1,000 mg BIDWMEALS PO Last administered on 17:23; Start 08/12/18 at 08:00 Methotrexate (Rheumatrex) 15 mg WEEKLY PO Last administered on 09/29/18 08:29; Start 08/18/18 at 09:00 Multivitamins/ Calcium (Thera-M Plus) 1 tab DAILY PO Last administered on 08:46; Start 08/12/18 at 09:00 Glucose (Insta-Glucose) 15 gm PRN Q15MIN PRN PO LOW BLOOD SUGAR; Start at 08:15 Divalproex Sodium (Depakote Sprinkles) 500 mg BIDWMEALS PO ; Start 08/13/18 at 20:27; Stop 08/13/18 at 20:36; Status DC Duloxetine HCl (Cymbalta) 60 mg DAILY PO Last administered on 10/02/18at 08:45; Start 08/14/18 at 09:00 Divalproex Sodium (Depakote Sprinkles) 500 mg BIDWMEALS PO Last administered on 10/02/18at 17:23; Start 08/14/18 at 08:00 Risperidone (RisperDAL) 1.5 mg DAILY PO ; Start 08/14/18 at 19:00; Stop at 19:00; Status DC Risperidone (RisperDAL) 2 mg HS PO Last administered on 08/16/18at 18:51; Start 08/14/18 at 21:00; Stop 08/17/18 at 18:30; Status DC Risperidone (RisperDAL) 1.5 mg HS PO ; Start 08/18/18 at 21:00; Stop 08/18/18 at 21:00; Status DC Risperidone (RisperDAL) 1.5 mg DAILY PO Last administered on 08/17/18at 08:08; Start 08/15/18 at 09:00; Stop 08/17/18 at 18:30; Status DC Amantadine HCl (Symmetrel) 100 mg DAILY PO Last administered on 08/23/18at 08:00 ; Start 08/17/18 at 09:00; Stop 08/23/18 at 21:37; Status DC Risperidone (RisperDAL) 1.5 mg BID PO Last administered on 08/19/18at 08:15; Start 08/17/18 at 21:00; Stop 08/19/18 at 15:58; Status DC Risperidone (RisperDAL) 1 mg BID PO Last administered on 08/22/18at 11:33; Start 08/19/18 at 21:00; Stop 08/22/18 at 17:30; Status DC Risperidone (RisperDAL) 1 mg QHS PO Last administered on 08/24/18at 20:41; Start 08/22/18 at 21:00; Stop 08/25/18 at 18:41; Status DC Risperidone (RisperDAL) 0.5 mg DAILY PO Last administered on 08/25/18at 11:14; Start 08/23/18 at 09:00; Stop 08/25/18 at 09:00; Status DC Amantadine HCl (Symmetrel) 100 mg BID PO Last administered on 10/02/18 19:28; Start 08/24/18 at 09:00 Risperidone (RisperDAL) 1.5 mg BID PO Last administered on 10/02/18 19:25; Start 08/26/18 at 09:00 Risperidone (RisperDAL) 2 mg HS PO Last administered on 08/25/18 20:03; Start 08/25/18 at 21:00; Stop 08/25/18 at 21:01; Status DC Trazodone HCl (Desyrel) 100 mg PRN QHS PRN PO INSOMNIA Last administered on 08/31 02:29; Start 08/30/18 at 18:45 Potassium Chloride (Klor-Con) 20 meq TID PO Last administered on 09/03/18 14: 25; Start 08/31/18 at 21:00; Stop 09/03/18 at 17:14; Status DC Doxycycline Hyclate (Vibra-Tab) 100 mg BID PO Last administered on 09/13/18 20 :13; Start 09/03/18 at 21:00; Stop 09/13/18 at 20:59; Status DC Lactobacillus Rhamnosus (Culturelle) 1 cap BID PO Last administered on 19:24; Start 09/03/18 at 21:00 Carvedilol (Coreg) 6.25 mg BIDWMEALS PO Last administered on 10/02/18 17:22; Start 09/04/18 at 17:00 Aspirin (Aspirin Enteric Coated) 81 mg DAILYWBKFT PO Last administered on 08:43; Start 09/14/18 at 08:00 Furosemide (Lasix) 40 mg BID PO Last administered on 09/15/18 08:36; Start at 21:00; Stop 09/15/18 at 11:23; Status DC Potassium Chloride (Klor-Con) 20 meq BID PO Last administered on 09/15/18 08: 35; Start 09/13/18 at 21:00; Stop 09/15/18 at 11:23; Status DC Furosemide (Lasix) 40 mg DAILY PO Last administered on 10/02/18at 08:45; Start 09/16/18 at 09:00 Potassium Chloride (Klor-Con) 20 meq DAILY PO Last administered on 10/02/18at 08 :45; Start 09/16/18 at 09:00 Nystatin (Nystop) 1 yaima TID TP Last administered on 10/02/18at 19:28; Start at 21:00 Levothyroxine Sodium (Synthroid) 100 mcg 1X ONCE PO Last administered on at 05:48; Start 09/23/18 at 06:00; Stop 09/23/18 at 06:01; Status DC Active Scripts Active Reported Xanax (Alprazolam) 0.5 Mg Tablet 0.5 Mg PO PRN Q6HRS PRN Hydrocodone-Apap 5-325 (Hydrocodone Bit/Acetaminophen) 1 Each Tablet 1 Tab PO PRN Q6HRS PRN Voltaren (Diclofenac Sodium) 100 Gm Gel..gram. 4 Gm TP QID Nystatin 15 Gm Powder 1 Yaima TP BID Tums (Calcium Carbonate) 200 Mg Tab.chew 2 Tab PO PRN Q6HRS PRN Nitrostat (Nitroglycerin) 0.4 Mg Tab.subl 0.4 Mg SL PRN Q5MIN PRN Milk Of Magnesia (Magnesium Hydroxide) 2,400 Mg/10 Ml Oral.susp 2,400 Mg PO PRN DAILY PRN Loperamide (Loperamide Hcl) 2 Mg Tablet 2 Mg PO PRN Q6HRS PRN Vitamin C (Ascorbic Acid) 500 Mg Tablet 500 Mg PO BIDWMEALS Risperdal (Risperidone) 2 Mg Tablet 2 Mg PO BIDWMEALS Mucinex (Guaifenesin) 600 Mg Tablet.er 600 Mg PO BIDWMEALS Metformin Hcl 1,000 Mg Tablet 1,000 Mg PO BIDWMEALS Cymbalta (Duloxetine Hcl) 60 Mg Capsule.dr 60 Mg PO BIDWMEALS Depakote Sprinkle (Divalproex Sodium) 125 Mg Cap.sprink 250 Mg PO BIDWMEALS Coreg (Carvedilol) 12.5 Mg Tablet 12.5 Mg PO BIDWMEALS Vitamin D3 (Cholecalciferol (Vitamin D3)) 1,000 Unit Tablet 2,000 Unit PO DAILY Trazodone Hcl 100 Mg Tablet 100 Mg PO HS Multivitamins (Multivitamin) 1 Each Tablet 1 Tab PO DAILY Methotrexate (Methotrexate Sodium) 2.5 Mg Tablet 15 Mg PO WEEKLY Lisinopril 10 Mg Tablet 10 Mg PO DAILY Levothyroxine Sodium 100 Mcg Tablet 100 Mcg PO DAILYAC Lasix (Furosemide) 40 Mg Tablet 40 Mg PO DAILY Folic Acid 1 Mg Tablet 1 Mg PO DAILY Allopurinol 100 Mg Tablet 100 Mg PO DAILY Novolog (Insulin Aspart) 100 Unit/1 Ml Vial 5 Unit SQ TIDWMEALS Levemir (Insulin Detemir) 100 Unit/1 Ml Vial 10 Unit SQ HS I have reviewed the current psychotropics carefully including drug interactions. Risk benefit ratio favors no change other than as noted in my dictated progress note. Diagnosis: Problems: (1) Anxiety disorder (2) Major depressive disorder, recurrent episode (3) Impulse control disorder (4) Dementia in Alzheimer's disease with delusions (5) Dementia in Alzheimer's disease with depression (6) Dementia, vascular, with delusions (7) Dementia, vascular, with depression KAITLIN DREW MD Oct 02, 2018 22:49
[2018-10-03] MEDS ORDERED: TRAZ-86 PO (04:33)
[2018-10-03] MEDS ORDERED: AMAN100T PO (04:35)
[2018-10-03] MEDS ORDERED: ASPI81TA50 PO (04:41)
[2018-10-03] MEDS ORDERED: ACET325T9 PO (04:42)
[2018-10-03] MEDS ORDERED: DEXT31GE5 PO (04:44)
[2018-10-03] MEDS ORDERED: LACT1CAP21 PO (04:46)
[2018-10-03] MEDS ORDERED: MAG355OR17 PO (04:47)
[2018-10-03] MEDS ORDERED: METH57CR17 TP (04:49)
[2018-10-03] MEDS ORDERED: POTA20TA4 PO (04:50)
[2018-10-03] MEDS: LEVOTHYROXINE 100 MCG TABLET PO SCH (05:29)
--- NOTE | 2018-10-03 06:02 | PN ---
DATE: 10/01/2018 PSYCHIATRIC PROGRESS NOTE This late entry, 10/01/2018, covers elements not covered in my initial note. SUBJECTIVE: I met with the patient in the evening. The patient slept 6-3/4 hours previous night. She has been frustrated at times with staff, but then redirects. REVIEW OF SYSTEMS: Unable to speak or hear. No CV, , GI, eye system symptoms on review. Most communication is nonverbal. MENTAL STATUS EXAM: Oriented to herself and situation. Speech as above. Abstraction fair, computation impaired, language function intact, attention span short. Mood and affect somewhat anxious, at times labile, but improved. LABORATORY DATA: Reviewed. IMPRESSION: Unchanged from initial note. PLAN: No change from initial note. MAN Vanesa DREW MD DR: STEFAN/satya JOB#: [id number] / [id number]
[2018-10-03 06:11] VITALS: BP 125/57
[2018-10-03] MEDS: ASPIRIN ENTERIC COATED 81 MG TABLET.DR. PO SCH (08:28)
[2018-10-03] MEDS: metFORMIN 500 MG TABLET PO SCH (08:29)
[2018-10-03] MEDS: ASCORBIC ACID 500 MG TABLET PO SCH (08:29)
[2018-10-03] MEDS: CARVEDILOL 6.25 MG TABLET PO SCH (08:29)
[2018-10-03] MEDS: DIVALPROEX 125 MG CAP.SPRINK PO SCH (08:29)
[2018-10-03] MEDS: DULoxetine HCL 60 MG CAPSULE.DR PO SCH (08:30)
[2018-10-03] MEDS: POTASSIUM CHLORIDE 20 MEQ TABLET.ER. PO SCH (08:30)
[2018-10-03] MEDS: LACTOBACILLUS RHAMNOSUS GG 1 CAPSULE. PO SCH (08:30)
[2018-10-03] MEDS: INSULIN LISPRO 300 UNITS/3 ML INSULN.PEN. SQ SCH ×2 (08:30→12:00)
[2018-10-03] MEDS: FUROSEMIDE 40 MG TABLET PO SCH (08:30)
[2018-10-03] MEDS: FOLIC ACID 1 MG TABLET PO SCH (08:30)
[2018-10-03 08:31] VITALS: BP 125/57
[2018-10-03] MEDS: CHOLECALCIFEROL (VITAMIN D3) 1,000 UNIT TABLET PO SCH (08:31)
[2018-10-03] MEDS: LISINOPRIL 10 MG TABLET PO SCH (08:31)
[2018-10-03] MEDS: risperiDONE 0.5 MG TABLET. PO SCH (08:31)
[2018-10-03] MEDS: ALLOPURINOL 100 MG TABLET. PO SCH (08:31)
[2018-10-03] MEDS: AMANTADINE HCL 100 MG CAPSULE PO SCH (08:31)
[2018-10-03] MEDS: MULTIVITAMIN with MINERAL TABLET. PO SCH (08:31)
[2018-10-03] MEDS: DICLOFENAC SODIUM 1% TOPICAL GEL 100GM TUBE. TP SCH ×2 (08:32→13:12)
[2018-10-03] MEDS: NYSTATIN TOPICAL POWDER 15GM BOTTLE. TP SCH ×2 (08:32→13:13)
--- NOTE | 2018-10-03 18:57 | PDOC ---
Exam Note: Johnnie Note: Please also refer to the separate dictated note~for this date of service dictated separately.~Patient seen individually. Discussed the patient with Nursing staff reviewed the chart.~Reviewed interim history and current functioning. Reviewed vital signs,~Labs/ Radiology~and current medications noted below. Continue current treatment with the changes noted in the dictated addendum note Assessment: Vital Signs: Vital Signs Date Time Temp Pulse Resp B/P (MAP) Pulse Ox O2 Delivery O2 Flow Rate FiO2 10/03/18 08:31 81 125/57 10/03/18 06:11 97.6 18 96 10/02/18 06:53 Room Air I&O Intake and Output 10/03/18 07:01 Intake Total 1160 ml Balance 1160 ml Intake Oral 1160 ml Labs: Laboratory Tests Test 10/02/18 19:16 10/03/18 07:27 10/03/18 11:49 Glucose (Fingerstick) 122 mg/dL (70-99) H 90 mg/dL (70-99) 117 mg/dL (70-99) H Current Medications: Meds: Current Medications Acetaminophen (Tylenol) 650 mg PRN Q6HRS PRN PO PAIN / TEMP Last administered on 09/27/18at 06:27; Start 08/11/18 at 21:00; Stop 10/03/18 at 14:18; Status DC Multi-Ingredient Ointment (Analgesic [place]) 1 yaima PRN QID PRN TP MUSCLE PAIN; Start 08/11/18 at 21:00; Stop 10/03/18 at 14:18; Status DC Al Hydroxide/Mg Hydroxide (Mylanta Plus Xs) 15 ml PRN AFTMEALHC PRN PO DYSPEPSIA; Start 08/11/18 at 21:00; Stop 10/03/18 at 14:18; Status DC Magnesium Hydroxide (Milk Of Magnesia) 2,400 mg PRN QHS PRN PO CONSTIPATION; Start 08/11/18 at 21:00; Stop 10/03/18 at 14:18; Status DC Alprazolam (Xanax) 0.5 mg PRN Q6HRS PRN PO ANXIETY / AGITATION Last administered on 08/21/18at 20:06; Start 08/11/18 at 22:30; Stop 10/03/18 at 14: 18; Status DC Divalproex Sodium (Depakote Sprinkles) 250 mg BIDWMEALS PO Last administered on 08/13/18at 18:08; Start 08/12/18 at 08:00; Stop 08/13/18 at 20:26; Status DC Duloxetine HCl (Cymbalta) 60 mg BIDWMEALS PO Last administered on 08/13/18at 18 :08; Start 08/12/18 at 08:00; Stop 08/13/18 at 20:26; Status DC Risperidone (RisperDAL) 2 mg BIDWMEALS PO Last administered on 08/14/18at 17:45 ; Start 08/12/18 at 08:00; Stop 08/14/18 at 18:45; Status DC Trazodone HCl (Desyrel) 100 mg HS PO Last administered on 10/02/18at 19:24; Start 08/11/18 at 22:30; Stop 10/03/18 at 14:18; Status DC Ascorbic Acid (Vitamin C) 500 mg BIDWMEALS PO Last administered on 10/03/18 08 :29; Start 08/12/18 at 08:00; Stop 10/03/18 at 14:18; Status DC Calcium Carbonate/ Glycine (Tums) 500 mg PRN Q6HRS PRN PO INDIGESTION; Start 08/11/18 at 22:15; Stop 10/03/18 at 14:18; Status DC Vitamin D (Vitamin D3) 2,000 unit DAILY PO Last administered on 10/03/18 08:31 ; Start 08/12/18 at 09:00; Stop 10/03/18 at 14:18; Status DC Diclofenac Sodium (Voltaren) 1 yaima QID TP Last administered on 10/03/18 13:12 ; Start 08/12/18 at 09:00; Stop 10/03/18 at 14:18; Status DC Guaifenesin (Mucinex Er) 600 mg BIDWMEALS PO Last administered on 10/03/18 08: 29; Start 08/12/18 at 08:00; Stop 10/03/18 at 14:18; Status DC Acetaminophen/ Hydrocodone Bitart (Lortab 5/325) 1 tab PRN Q6HRS PRN PO PAIN Last administered on 10/02/18 05:59; Start 08/11/18 at 22:15; Stop 10/03/18 at 14:18; Status DC Levothyroxine Sodium (Synthroid) 100 mcg DAILY06 PO Last administered on 05:29; Start 08/12/18 at 06:00; Stop 10/03/18 at 14:18; Status DC Lisinopril (Prinivil) 10 mg DAILY PO Last administered on 10/03/18 08:31; Start 08/12/18 at 09:00; Stop 10/03/18 at 14:18; Status DC Nitroglycerin (Nitrostat) 0.4 mg PRN Q5MIN PRN SL CHEST PAIN; Start 08/11/18 at 22:15; Stop 10/03/18 at 14:18; Status DC Nystatin (Nystop) 1 yaima BID TP Last administered on 09/15/18 08:38; Start at 09:00; Stop 09/15/18 at 14:19; Status DC Allopurinol (Zyloprim) 100 mg DAILY PO Last administered on 10/03/18 08:31; Start 08/12/18 at 09:00; Stop 10/03/18 at 14:18; Status DC Carvedilol (Coreg) 12.5 mg BIDWMEALS PO Last administered on 09/03/18 08:42; Start 08/12/18 at 08:00; Stop 09/04/18 at 11:25; Status DC Folic Acid (Folic Acid) 1 mg DAILY PO Last administered on 10/03/18 08:30; Start 08/12/18 at 09:00; Stop 10/03/18 at 14:18; Status DC Furosemide (Lasix) 40 mg DAILY PO Last administered on 09/13/18 09:12; Start 08/12/18 at 09:00; Stop 09/13/18 at 17:08; Status DC Insulin Human Lispro (HumaLOG) 5 units TIDWMEALS SQ Last administered on 12:41; Start 08/12/18 at 08:00; Stop 10/03/18 at 14:18; Status DC Insulin Glargine (Lantus) 10 units QHS SQ Last administered on 10/02/18 19:46 ; Start 08/11/18 at 23:00; Stop 10/03/18 at 14:18; Status DC Loperamide HCl (Imodium) 2 mg PRN Q6HRS PRN PO DIARRHEA; Start 08/11/18 at 22: 45; Stop 10/03/18 at 14:18; Status DC Non-Formulary Medication (Magnesium Hydroxide (Milk Of Magnesia)) 2,400 mg PRN DAILY PRN PO CONSTIPATION; Start 08/11/18 at 22:15; Status UNV Metformin HCl (Glucophage) 1,000 mg BIDWMEALS PO Last administered on 08:29; Start 08/12/18 at 08:00; Stop 10/03/18 at 14:18; Status DC Methotrexate (Rheumatrex) 15 mg WEEKLY PO Last administered on 09/29/18 08:29; Start 08/18/18 at 09:00; Stop 10/03/18 at 14:18; Status DC Multivitamins/ Calcium (Thera-M Plus) 1 tab DAILY PO Last administered on 08:31; Start 08/12/18 at 09:00; Stop 10/03/18 at 14:18; Status DC Glucose (Insta-Glucose) 15 gm PRN Q15MIN PRN PO LOW BLOOD SUGAR; Start at 08:15; Stop 10/03/18 at 14:18; Status DC Divalproex Sodium (Depakote Sprinkles) 500 mg BIDWMEALS PO ; Start 08/13/18 at 20:27; Stop 08/13/18 at 20:36; Status DC Duloxetine HCl (Cymbalta) 60 mg DAILY PO Last administered on 10/03/18at 08:30; Start 08/14/18 at 09:00; Stop 10/03/18 at 14:18; Status DC Divalproex Sodium (Depakote Sprinkles) 500 mg BIDWMEALS PO Last administered on 10/03/18 08:29; Start 08/14/18 at 08:00; Stop 10/03/18 at 14:18; Status DC Risperidone (RisperDAL) 1.5 mg DAILY PO ; Start 08/14/18 at 19:00; Stop at 19:00; Status DC Risperidone (RisperDAL) 2 mg HS PO Last administered on 08/16/18at 18:51; Start 08/14/18 at 21:00; Stop 08/17/18 at 18:30; Status DC Risperidone (RisperDAL) 1.5 mg HS PO ; Start 08/18/18 at 21:00; Stop 08/18/18 at 21:00; Status DC Risperidone (RisperDAL) 1.5 mg DAILY PO Last administered on 08/17/18at 08:08; Start 08/15/18 at 09:00; Stop 08/17/18 at 18:30; Status DC Amantadine HCl (Symmetrel) 100 mg DAILY PO Last administered on 08/23/18at 08:00 ; Start 08/17/18 at 09:00; Stop 08/23/18 at 21:37; Status DC Risperidone (RisperDAL) 1.5 mg BID PO Last administered on 08/19/18at 08:15; Start 08/17/18 at 21:00; Stop 08/19/18 at 15:58; Status DC Risperidone (RisperDAL) 1 mg BID PO Last administered on 08/22/18at 11:33; Start 08/19/18 at 21:00; Stop 08/22/18 at 17:30; Status DC Risperidone (RisperDAL) 1 mg QHS PO Last administered on 08/24/18at 20:41; Start 08/22/18 at 21:00; Stop 08/25/18 at 18:41; Status DC Risperidone (RisperDAL) 0.5 mg DAILY PO Last administered on 08/25/18 11:14; Start 08/23/18 at 09:00; Stop 08/25/18 at 09:00; Status DC Amantadine HCl (Symmetrel) 100 mg BID PO Last administered on 10/03/18 08:31; Start 08/24/18 at 09:00; Stop 10/03/18 at 14:18; Status DC Risperidone (RisperDAL) 1.5 mg BID PO Last administered on 10/03/18 08:31; Start 08/26/18 at 09:00; Stop 10/03/18 at 14:18; Status DC Risperidone (RisperDAL) 2 mg HS PO Last administered on 08/25/18at 20:03; Start 08/25/18 at 21:00; Stop 08/25/18 at 21:01; Status DC Trazodone HCl (Desyrel) 100 mg PRN QHS PRN PO INSOMNIA Last administered on 08/31 02:29; Start 08/30/18 at 18:45; Stop 10/03/18 at 14:18; Status DC Potassium Chloride (Klor-Con) 20 meq TID PO Last administered on 09/03/18at 14: 25; Start 08/31/18 at 21:00; Stop 09/03/18 at 17:14; Status DC Doxycycline Hyclate (Vibra-Tab) 100 mg BID PO Last administered on 09/13/18 20 :13; Start 09/03/18 at 21:00; Stop 09/13/18 at 20:59; Status DC Lactobacillus Rhamnosus (Culturelle) 1 cap BID PO Last administered on 08:30; Start 09/03/18 at 21:00; Stop 10/03/18 at 14:18; Status DC Carvedilol (Coreg) 6.25 mg BIDWMEALS PO Last administered on 10/03/18 08:29; Start 09/04/18 at 17:00; Stop 10/03/18 at 14:18; Status DC Aspirin (Aspirin Enteric Coated) 81 mg DAILYWBKFT PO Last administered on 08:28; Start 09/14/18 at 08:00; Stop 10/03/18 at 14:18; Status DC Furosemide (Lasix) 40 mg BID PO Last administered on 09/15/18 08:36; Start at 21:00; Stop 09/15/18 at 11:23; Status DC Potassium Chloride (Klor-Con) 20 meq BID PO Last administered on 09/15/18 08: 35; Start 09/13/18 at 21:00; Stop 09/15/18 at 11:23; Status DC Furosemide (Lasix) 40 mg DAILY PO Last administered on 10/03/18 08:30; Start 09/16/18 at 09:00; Stop 10/03/18 at 14:18; Status DC Potassium Chloride (Klor-Con) 20 meq DAILY PO Last administered on 10/03/18 08 :30; Start 09/16/18 at 09:00; Stop 10/03/18 at 14:18; Status DC Nystatin (Nystop) 1 yaima TID TP Last administered on 10/03/18at 13:13; Start at 21:00; Stop 10/03/18 at 14:18; Status DC Levothyroxine Sodium (Synthroid) 100 mcg 1X ONCE PO Last administered on at 05:48; Start 09/23/18 at 06:00; Stop 09/23/18 at 06:01; Status DC Active Scripts Active Reported Klor-Con M20 (Potassium Chloride) 20 Meq Tab.er.prt 20 Meq PO DAILY [place] Greaseless Cream (Methyl Salicylate/Menthol) 57 Gm Cream..g. 57 Gm TP PRN QID PRN Advanced Antacid Liquid (Mag Hydrox/Al Hydrox/Simeth) 355 Ml Oral.susp 355 Ml PO PRN AFTMEALHC PRN Culturelle (Lactobacillus Rhamnosus Gg) 1 Each Capsule 1 Each PO BID Insta-Glucose Gel (Dextrose/Dextrin/Maltose) 31 Gm Gel..gram. 15 Gm PO PRN Q15MIN PRN Tylenol (Acetaminophen) 325 Mg Tablet 650 Mg PO PRN Q6HRS PRN Aspir-Low (Aspirin) 81 Mg Tablet.dr 81 Mg PO DAILY Amantadine (Amantadine Hcl) 100 Mg Tablet 100 Mg PO BID Trazodone Hcl 100 Mg Tablet 100 Mg PO PRN QHS PRN Xanax (Alprazolam) 0.5 Mg Tablet 0.5 Mg PO PRN Q6HRS PRN Hydrocodone-Apap 5-325 (Hydrocodone Bit/Acetaminophen) 1 Each Tablet 1 Tab PO PRN Q6HRS PRN Voltaren (Diclofenac Sodium) 100 Gm Gel..gram. 4 Gm TP QID Nystatin 15 Gm Powder 1 Yaima TP BID Tums (Calcium Carbonate) 200 Mg Tab.chew 2 Tab PO PRN Q6HRS PRN Nitrostat (Nitroglycerin) 0.4 Mg Tab.subl 0.4 Mg SL PRN Q5MIN PRN Milk Of Magnesia (Magnesium Hydroxide) 2,400 Mg/10 Ml Oral.susp 2,400 Mg PO PRN DAILY PRN Loperamide (Loperamide Hcl) 2 Mg Tablet 2 Mg PO PRN Q6HRS PRN Vitamin C (Ascorbic Acid) 500 Mg Tablet 500 Mg PO BIDWMEALS Risperdal (Risperidone) 2 Mg Tablet 1.5 Mg PO BIDWMEALS Mucinex (Guaifenesin) 600 Mg Tablet.er 600 Mg PO BIDWMEALS Metformin Hcl 1,000 Mg Tablet 1,000 Mg PO BIDWMEALS Cymbalta (Duloxetine Hcl) 60 Mg Capsule.dr 60 Mg PO BIDWMEALS Depakote Sprinkle (Divalproex Sodium) 125 Mg Cap.sprink 500 Mg PO BIDWMEALS Coreg (Carvedilol) 12.5 Mg Tablet 6.25 Mg PO BIDWMEALS Vitamin D3 (Cholecalciferol (Vitamin D3)) 1,000 Unit Tablet 2,000 Unit PO DAILY Trazodone Hcl 100 Mg Tablet 100 Mg PO HS Multivitamins (Multivitamin) 1 Each Tablet 1 Tab PO DAILY Methotrexate (Methotrexate Sodium) 2.5 Mg Tablet 15 Mg PO WEEKLY Lisinopril 10 Mg Tablet 10 Mg PO DAILY Levothyroxine Sodium 100 Mcg Tablet 100 Mcg PO DAILYAC Lasix (Furosemide) 40 Mg Tablet 40 Mg PO DAILY Folic Acid 1 Mg Tablet 1 Mg PO DAILY Allopurinol 100 Mg Tablet 100 Mg PO DAILY Novolog (Insulin Aspart) 100 Unit/1 Ml Vial 5 Unit SQ TIDWMEALS Levemir (Insulin Detemir) 100 Unit/1 Ml Vial 10 Unit SQ HS I have reviewed the current psychotropics carefully including drug interactions. Risk benefit ratio favors no change other than as noted in my dictated progress note. Diagnosis: Problems: (1) Dementia, vascular, with depression (2) Dementia, vascular, with delusions (3) Dementia in Alzheimer's disease with depression (4) Dementia in Alzheimer's disease with delusions (5) Impulse control disorder (6) Major depressive disorder, recurrent episode (7) Anxiety disorder (8) Bipolar 1 disorder, mixed KAITLIN DREW MD Oct 03, 2018 18:57
--- NOTE | 2018-10-03 21:34 | PN ---
DATE: 10/02/2018 PSYCHIATRIC PROGRESS NOTE This late entry 10/02/2018 covers elements not covered in my initial note. SUBJECTIVE: I met with the patient in the evening. The patient slept 7-1/2 hours previous night. She remains somewhat withdrawn. REVIEW OF SYSTEMS: Unable to speak or hear. Communication is nonverbal. No CV, , eye system symptoms on review. MENTAL STATUS EXAM: Oriented to herself and situation. Speech, she is unable to speak or hear. Abstraction fair. Computation, difficult to assess. Language function intact. Mood and affect somewhat withdrawn, but otherwise improved. LABORATORY DATA: Reviewed. IMPRESSION: Bipolar 1 disorder, mixed with psychotic features, in partial remission; anxiety disorder, unspecified. PLAN: No change from initial note. Transition to prison 10/03/2018. MAN Vanesa DREW MD DR: STEFAN/satya JOB#: [id number] / [id number]
--- NOTE | 2018-10-04 17:51 | DS ---
DATE OF DISCHARGE: 10/03/2018 DISCHARGE SUMMARY AND PSYCHIATRIC PROGRESS NOTE This is a late entry 10/03/2018 covers elements not covered in my initial note. REASON FOR ADMISSION: Please refer to the admission history for details. 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 She had been noncompliant with her medications at the nursing facility including insulin. She was yelling at staff, throwing things, scratching her face when she would not get her way. She is gorging herself or not eating at all. Behaviors were unmanageable, dangerous, aggressive. She had failed outpatient psychiatric interventions resulting in this referral. SIGNIFICANT FINDINGS AND CLINICAL COURSE: Following admission, the patient was seen daily individually by myself, followed medically by Dr. Abrams. From a psychiatric standpoint, she was initially quite agitated, labile, refusing to interact. Adjustments were made in her psychotropics and she seemed to respond to a combination of Risperdal 1.5 mg b.i.d., Cymbalta 60 mg a day, Depakote Sprinkles 500 mg b.i.d. with meals with a therapeutic valproic acid level. Trazodone was 100 mg at bedtime, december repeat x 1 and Xanax p.r.n. Gradually mood appeared to improve. She was much more pleasant, cooperative, interactive, despite her limitations with hearing and speech. No agitation, aggression noted prior to discharge. CONDITION AT DISCHARGE: Improved prior to discharge. REVIEW OF SYSTEMS: Unable to hear or speak, but no CV, , pulmonary, eye system symptoms on review. MENTAL STATUS EXAM: Oriented to herself situations. Speech as above. Abstraction fair, computation impaired, language function intact, attention span short. Mood and affect was much improved. No suicidal or homicidal ideation. LABORATORY DATA: Reviewed. FINAL DIAGNOSES: Bipolar 1 disorder, mixed with psychotic features, in partial remission; anxiety disorder, unspecified; impulse control disorder, unspecified. Rest unchanged from admission. DISCHARGE MEDICATIONS: Please refer to the MRAD. DISCHARGE INSTRUCTIONS: Outpatient psychiatric and [facility]up at the [facility]. MAN Vanesa DREW MD DR: Monica JOB#: [id number] / [id number]
--- NOTE | 2018-10-04 22:46 | PDOC ---
Exam Note: Johnnie Note: Please also refer to the separate dictated note~for this date of service dictated separately.~Patient seen individually. Discussed the patient with Nursing staff reviewed the chart.~Reviewed interim history and current functioning. Reviewed vital signs,~Labs/ Radiology~and current medications noted below. Continue current treatment with the changes noted in the dictated addendum note Assessment: Vital Signs: Vital Signs Date Time Temp Pulse Resp B/P (MAP) Pulse Ox O2 Delivery O2 Flow Rate FiO2 10/03/18 08:31 81 125/57 10/03/18 06:11 97.6 18 96 10/02/18 06:53 Room Air I&O Intake and Output 10/04/18 06:59 Intake Total 300 ml Balance 300 ml Intake Oral 300 ml # Bowel Movements 1 Current Medications: Meds: Current Medications Acetaminophen (Tylenol) 650 mg PRN Q6HRS PRN PO PAIN / TEMP Last administered on 09/27/18at 06:27; Start 08/11/18 at 21:00; Stop 10/03/18 at 14:18; Status DC Multi-Ingredient Ointment (Analgesic [place]) 1 yaima PRN QID PRN TP MUSCLE PAIN; Start 08/11/18 at 21:00; Stop 10/03/18 at 14:18; Status DC Al Hydroxide/Mg Hydroxide (Mylanta Plus Xs) 15 ml PRN AFTMEALHC PRN PO DYSPEPSIA; Start 08/11/18 at 21:00; Stop 10/03/18 at 14:18; Status DC Magnesium Hydroxide (Milk Of Magnesia) 2,400 mg PRN QHS PRN PO CONSTIPATION; Start 08/11/18 at 21:00; Stop 10/03/18 at 14:18; Status DC Alprazolam (Xanax) 0.5 mg PRN Q6HRS PRN PO ANXIETY / AGITATION Last administered on 08/21/18at 20:06; Start 08/11/18 at 22:30; Stop 10/03/18 at 14: 18; Status DC Divalproex Sodium (Depakote Sprinkles) 250 mg BIDWMEALS PO Last administered on 08/13/18at 18:08; Start 08/12/18 at 08:00; Stop 08/13/18 at 20:26; Status DC Duloxetine HCl (Cymbalta) 60 mg BIDWMEALS PO Last administered on 08/13/18at 18 :08; Start 08/12/18 at 08:00; Stop 08/13/18 at 20:26; Status DC Risperidone (RisperDAL) 2 mg BIDWMEALS PO Last administered on 08/14/18at 17:45 ; Start 08/12/18 at 08:00; Stop 08/14/18 at 18:45; Status DC Trazodone HCl (Desyrel) 100 mg HS PO Last administered on 10/02/18 19:24; Start 08/11/18 at 22:30; Stop 10/03/18 at 14:18; Status DC Ascorbic Acid (Vitamin C) 500 mg BIDWMEALS PO Last administered on 10/03/18 08 :29; Start 08/12/18 at 08:00; Stop 10/03/18 at 14:18; Status DC Calcium Carbonate/ Glycine (Tums) 500 mg PRN Q6HRS PRN PO INDIGESTION; Start 08/11/18 at 22:15; Stop 10/03/18 at 14:18; Status DC Vitamin D (Vitamin D3) 2,000 unit DAILY PO Last administered on 10/03/18 08:31 ; Start 08/12/18 at 09:00; Stop 10/03/18 at 14:18; Status DC Diclofenac Sodium (Voltaren) 1 yaima QID TP Last administered on 10/03/18 13:12 ; Start 08/12/18 at 09:00; Stop 10/03/18 at 14:18; Status DC Guaifenesin (Mucinex Er) 600 mg BIDWMEALS PO Last administered on 10/03/18 08: 29; Start 08/12/18 at 08:00; Stop 10/03/18 at 14:18; Status DC Acetaminophen/ Hydrocodone Bitart (Lortab 5/325) 1 tab PRN Q6HRS PRN PO PAIN Last administered on 10/02/18 05:59; Start 08/11/18 at 22:15; Stop 10/03/18 at 14:18; Status DC Levothyroxine Sodium (Synthroid) 100 mcg DAILY06 PO Last administered on 05:29; Start 08/12/18 at 06:00; Stop 10/03/18 at 14:18; Status DC Lisinopril (Prinivil) 10 mg DAILY PO Last administered on 10/03/18 08:31; Start 08/12/18 at 09:00; Stop 10/03/18 at 14:18; Status DC Nitroglycerin (Nitrostat) 0.4 mg PRN Q5MIN PRN SL CHEST PAIN; Start 08/11/18 at 22:15; Stop 10/03/18 at 14:18; Status DC Nystatin (Nystop) 1 yaima BID TP Last administered on 09/15/18 08:38; Start at 09:00; Stop 09/15/18 at 14:19; Status DC Allopurinol (Zyloprim) 100 mg DAILY PO Last administered on 10/03/18 08:31; Start 08/12/18 at 09:00; Stop 10/03/18 at 14:18; Status DC Carvedilol (Coreg) 12.5 mg BIDWMEALS PO Last administered on 09/03/18 08:42; Start 08/12/18 at 08:00; Stop 09/04/18 at 11:25; Status DC Folic Acid (Folic Acid) 1 mg DAILY PO Last administered on 10/03/18 08:30; Start 08/12/18 at 09:00; Stop 10/03/18 at 14:18; Status DC Furosemide (Lasix) 40 mg DAILY PO Last administered on 09/13/18 09:12; Start 08/12/18 at 09:00; Stop 09/13/18 at 17:08; Status DC Insulin Human Lispro (HumaLOG) 5 units TIDWMEALS SQ Last administered on 12:41; Start 08/12/18 at 08:00; Stop 10/03/18 at 14:18; Status DC Insulin Glargine (Lantus) 10 units QHS SQ Last administered on 10/02/18 19:46 ; Start 08/11/18 at 23:00; Stop 10/03/18 at 14:18; Status DC Loperamide HCl (Imodium) 2 mg PRN Q6HRS PRN PO DIARRHEA; Start 08/11/18 at 22: 45; Stop 10/03/18 at 14:18; Status DC Non-Formulary Medication (Magnesium Hydroxide (Milk Of Magnesia)) 2,400 mg PRN DAILY PRN PO CONSTIPATION; Start 08/11/18 at 22:15; Status UNV Metformin HCl (Glucophage) 1,000 mg BIDWMEALS PO Last administered on 08:29; Start 08/12/18 at 08:00; Stop 10/03/18 at 14:18; Status DC Methotrexate (Rheumatrex) 15 mg WEEKLY PO Last administered on 09/29/18 08:29; Start 08/18/18 at 09:00; Stop 10/03/18 at 14:18; Status DC Multivitamins/ Calcium (Thera-M Plus) 1 tab DAILY PO Last administered on 08:31; Start 08/12/18 at 09:00; Stop 10/03/18 at 14:18; Status DC Glucose (Insta-Glucose) 15 gm PRN Q15MIN PRN PO LOW BLOOD SUGAR; Start at 08:15; Stop 10/03/18 at 14:18; Status DC Divalproex Sodium (Depakote Sprinkles) 500 mg BIDWMEALS PO ; Start 08/13/18 at 20:27; Stop 08/13/18 at 20:36; Status DC Duloxetine HCl (Cymbalta) 60 mg DAILY PO Last administered on 10/03/18 08:30; Start 08/14/18 at 09:00; Stop 10/03/18 at 14:18; Status DC Divalproex Sodium (Depakote Sprinkles) 500 mg BIDWMEALS PO Last administered on 10/03/18 08:29; Start 08/14/18 at 08:00; Stop 10/03/18 at 14:18; Status DC Risperidone (RisperDAL) 1.5 mg DAILY PO ; Start 08/14/18 at 19:00; Stop at 19:00; Status DC Risperidone (RisperDAL) 2 mg HS PO Last administered on 08/16/18at 18:51; Start 08/14/18 at 21:00; Stop 08/17/18 at 18:30; Status DC Risperidone (RisperDAL) 1.5 mg HS PO ; Start 08/18/18 at 21:00; Stop 08/18/18 at 21:00; Status DC Risperidone (RisperDAL) 1.5 mg DAILY PO Last administered on 08/17/18at 08:08; Start 08/15/18 at 09:00; Stop 08/17/18 at 18:30; Status DC Amantadine HCl (Symmetrel) 100 mg DAILY PO Last administered on 08/23/18 08:00 ; Start 08/17/18 at 09:00; Stop 08/23/18 at 21:37; Status DC Risperidone (RisperDAL) 1.5 mg BID PO Last administered on 08/19/18at 08:15; Start 08/17/18 at 21:00; Stop 08/19/18 at 15:58; Status DC Risperidone (RisperDAL) 1 mg BID PO Last administered on 08/22/18at 11:33; Start 08/19/18 at 21:00; Stop 08/22/18 at 17:30; Status DC Risperidone (RisperDAL) 1 mg QHS PO Last administered on 08/24/18at 20:41; Start 08/22/18 at 21:00; Stop 08/25/18 at 18:41; Status DC Risperidone (RisperDAL) 0.5 mg DAILY PO Last administered on 08/25/18 11:14; Start 08/23/18 at 09:00; Stop 08/25/18 at 09:00; Status DC Amantadine HCl (Symmetrel) 100 mg BID PO Last administered on 10/03/18 08:31; Start 08/24/18 at 09:00; Stop 10/03/18 at 14:18; Status DC Risperidone (RisperDAL) 1.5 mg BID PO Last administered on 10/03/18 08:31; Start 08/26/18 at 09:00; Stop 10/03/18 at 14:18; Status DC Risperidone (RisperDAL) 2 mg HS PO Last administered on 08/25/18 20:03; Start 08/25/18 at 21:00; Stop 08/25/18 at 21:01; Status DC Trazodone HCl (Desyrel) 100 mg PRN QHS PRN PO INSOMNIA Last administered on 08/31 02:29; Start 08/30/18 at 18:45; Stop 10/03/18 at 14:18; Status DC Potassium Chloride (Klor-Con) 20 meq TID PO Last administered on 09/03/18at 14: 25; Start 08/31/18 at 21:00; Stop 09/03/18 at 17:14; Status DC Doxycycline Hyclate (Vibra-Tab) 100 mg BID PO Last administered on 09/13/18at 20 :13; Start 09/03/18 at 21:00; Stop 09/13/18 at 20:59; Status DC Lactobacillus Rhamnosus (Culturelle) 1 cap BID PO Last administered on 08:30; Start 09/03/18 at 21:00; Stop 10/03/18 at 14:18; Status DC Carvedilol (Coreg) 6.25 mg BIDWMEALS PO Last administered on 10/03/18 08:29; Start 09/04/18 at 17:00; Stop 10/03/18 at 14:18; Status DC Aspirin (Aspirin Enteric Coated) 81 mg DAILYWBKFT PO Last administered on 08:28; Start 09/14/18 at 08:00; Stop 10/03/18 at 14:18; Status DC Furosemide (Lasix) 40 mg BID PO Last administered on 09/15/18 08:36; Start at 21:00; Stop 09/15/18 at 11:23; Status DC Potassium Chloride (Klor-Con) 20 meq BID PO Last administered on 09/15/18 08: 35; Start 09/13/18 at 21:00; Stop 09/15/18 at 11:23; Status DC Furosemide (Lasix) 40 mg DAILY PO Last administered on 10/03/18 08:30; Start 09/16/18 at 09:00; Stop 10/03/18 at 14:18; Status DC Potassium Chloride (Klor-Con) 20 meq DAILY PO Last administered on 10/03/18 08 :30; Start 09/16/18 at 09:00; Stop 10/03/18 at 14:18; Status DC Nystatin (Nystop) 1 yaima TID TP Last administered on 10/03/18 13:13; Start at 21:00; Stop 10/03/18 at 14:18; Status DC Levothyroxine Sodium (Synthroid) 100 mcg 1X ONCE PO Last administered on at 05:48; Start 09/23/18 at 06:00; Stop 09/23/18 at 06:01; Status DC Active Scripts Active Reported Klor-Con M20 (Potassium Chloride) 20 Meq Tab.er.prt 20 Meq PO DAILY [place] Greaseless Cream (Methyl Salicylate/Menthol) 57 Gm Cream..g. 57 Gm TP PRN QID PRN Advanced Antacid Liquid (Mag Hydrox/Al Hydrox/Simeth) 355 Ml Oral.susp 355 Ml PO PRN AFTMEALHC PRN Culturelle (Lactobacillus Rhamnosus Gg) 1 Each Capsule 1 Each PO BID Insta-Glucose Gel (Dextrose/Dextrin/Maltose) 31 Gm Gel..gram. 15 Gm PO PRN Q15MIN PRN Tylenol (Acetaminophen) 325 Mg Tablet 650 Mg PO PRN Q6HRS PRN Aspir-Low (Aspirin) 81 Mg Tablet.dr 81 Mg PO DAILY Amantadine (Amantadine Hcl) 100 Mg Tablet 100 Mg PO BID Trazodone Hcl 100 Mg Tablet 100 Mg PO PRN QHS PRN Xanax (Alprazolam) 0.5 Mg Tablet 0.5 Mg PO PRN Q6HRS PRN Hydrocodone-Apap 5-325 (Hydrocodone Bit/Acetaminophen) 1 Each Tablet 1 Tab PO PRN Q6HRS PRN Voltaren (Diclofenac Sodium) 100 Gm Gel..gram. 4 Gm TP QID Nystatin 15 Gm Powder 1 Yaima TP BID Tums (Calcium Carbonate) 200 Mg Tab.chew 2 Tab PO PRN Q6HRS PRN Nitrostat (Nitroglycerin) 0.4 Mg Tab.subl 0.4 Mg SL PRN Q5MIN PRN Milk Of Magnesia (Magnesium Hydroxide) 2,400 Mg/10 Ml Oral.susp 2,400 Mg PO PRN DAILY PRN Loperamide (Loperamide Hcl) 2 Mg Tablet 2 Mg PO PRN Q6HRS PRN Vitamin C (Ascorbic Acid) 500 Mg Tablet 500 Mg PO BIDWMEALS Risperdal (Risperidone) 2 Mg Tablet 1.5 Mg PO BIDWMEALS Mucinex (Guaifenesin) 600 Mg Tablet.er 600 Mg PO BIDWMEALS Metformin Hcl 1,000 Mg Tablet 1,000 Mg PO BIDWMEALS Cymbalta (Duloxetine Hcl) 60 Mg Capsule.dr 60 Mg PO BIDWMEALS Depakote Sprinkle (Divalproex Sodium) 125 Mg Cap.sprink 500 Mg PO BIDWMEALS Coreg (Carvedilol) 12.5 Mg Tablet 6.25 Mg PO BIDWMEALS Vitamin D3 (Cholecalciferol (Vitamin D3)) 1,000 Unit Tablet 2,000 Unit PO DAILY Trazodone Hcl 100 Mg Tablet 100 Mg PO HS Multivitamins (Multivitamin) 1 Each Tablet 1 Tab PO DAILY Methotrexate (Methotrexate Sodium) 2.5 Mg Tablet 15 Mg PO WEEKLY Lisinopril 10 Mg Tablet 10 Mg PO DAILY Levothyroxine Sodium 100 Mcg Tablet 100 Mcg PO DAILYAC Lasix (Furosemide) 40 Mg Tablet 40 Mg PO DAILY Folic Acid 1 Mg Tablet 1 Mg PO DAILY Allopurinol 100 Mg Tablet 100 Mg PO DAILY Novolog (Insulin Aspart) 100 Unit/1 Ml Vial 5 Unit SQ TIDWMEALS Levemir (Insulin Detemir) 100 Unit/1 Ml Vial 10 Unit SQ HS I have reviewed the current psychotropics carefully including drug interactions. Risk benefit ratio favors no change other than as noted in my dictated progress note. Diagnosis: Problems: (1) Bipolar 1 disorder, mixed (2) Anxiety disorder (3) Major depressive disorder, recurrent episode (4) Impulse control disorder (5) Dementia in Alzheimer's disease with delusions (6) Dementia in Alzheimer's disease with depression (7) Dementia, vascular, with delusions (8) Dementia, vascular, with depression KAITLIN DREW MD Oct 04, 2018 22:46
== END 2018-10-03 14:17 | DRG 885 ==
LOC: ER 17:18 → GEROPSY 19:41
PROVIDERS: ADMIT Psychiatry & Neurology Psychiatry; ATTEND Psychiatry & Neurology Psychiatry
DX: F25.0 Schizoaffective disorder, bipolar type (principal); I50.23 Acute on chronic systolic (congestive) heart failure; G25.9 Extrapyramidal and movement disorder, unspecified; L03.115 Cellulitis of right lower limb; L03.116 Cellulitis of left lower limb; R47.01 Aphasia; F01.51 Vascular dementia, unspecified severity, with behavioral disturbance; F02.81 Dementia in other diseases classified elsewhere, unspecified severity, with behavioral disturbance; G30.9 Alzheimer's disease, unspecified; F41.9 Anxiety disorder, unspecified; E03.9 Hypothyroidism, unspecified; E11.9 Type 2 diabetes mellitus without complications; E78.5 Hyperlipidemia, unspecified; E83.42 Hypomagnesemia; F63.9 Impulse disorder, unspecified; G20 Parkinson's disease; G89.29 Other chronic pain; R07.89 Other chest pain; H90.5 Unspecified sensorineural hearing loss; I08.1 Rheumatic disorders of both mitral and tricuspid valves; I11.0 Hypertensive heart disease with heart failure; I95.9 Hypotension, unspecified; I44.7 Left bundle-branch block, unspecified; J06.9 Acute upper respiratory infection, unspecified; M06.9 Rheumatoid arthritis, unspecified; M10.9 Gout, unspecified; Z79.899 Other long term (current) drug therapy; Z89.429 Acquired absence of other toe(s), unspecified side; Z91.14 Patient's other noncompliance with medication regimen; Z91.83 Wandering in diseases classified elsewhere; Z88.8 Allergy status to other drugs, medicaments and biological substances
CPT/HCPCS: 36415; 70450; 71045; 71046; 73700; 80048; 80053; 80061; 80164; 81001; 82306; 82550; 82607; 82947; 83036; 83540; 83550; 83735; 83880; 84436; 84443; 84480; 84484; 85025; 85027; 86592; 93005; 93306; J1815; J8610; P9612; 92610; 99285-25